=== PATIENT | female | born 1945 | race Caucasian/White ===

== ENCOUNTER 2021-03-04 16:46 | Observation (INO) ==
--- NOTE | 2021-03-04 17:42 | XRay Report ---
XR pelvis 1-2V routine CLINICAL HISTORY: Left hip pain. COMPARISON: CT of the abdomen and pelvis January 30, 2015. FINDINGS: Sacroiliac joints and symphysis pubis are intact. There is no acute fracture within the pe lvis or hips by radiography. Joint space narrowing and moderate osteophytosis of the left hip is note d. There is mild to moderate right hip osteoarthritis. Exam is mildly compromised by artifact. IMPRESSION: 1. No acute fracture identified within the pelvis or hips. 2. Moderate left and mild to moderate right hip osteoarthritis. ACT 112: Negative or not required by law. Electronically signed by: Nelson Jacob M.D. 03/04/2021 5:41 PM
--- NOTE | 2021-03-04 17:48 | XRay Report ---
XR femur LT 2V routine CLINICAL HISTORY: Left lower extremity pain. COMPARISON: CT T of the abdomen and pelvis January 30, 2015. FINDINGS: There is possible periosteal reaction/thickening of the lateral cortex of the proximal sha ft of the left femur, distal to the level of the lesser trochanter.. There is moderate left hip osteo arthritis with mild joint space narrowing and moderate osteophytosis. There is a small left knee join t effusion. Severe lateral patellofemoral compartment osteoarthrosis of the left knee is present. IMPRESSION: 1. Suspected periosteal reaction/thickening of the lateral cortex of the proximal shaft of the left f emur. This raises the possibility of an insufficiency fracture. MRI could be obtained for further rashmi luation. 2. Severe left knee osteoarthritis. Moderate left hip osteoarthritis. ACT 112: Negative or not required by law. Electronically signed by: Nelson Jacob M.D. 03/04/2021 5:47 PM
--- NOTE | 2021-03-04 17:50 | XRay Report ---
XR knee RT 1 or 2V routine CLINICAL HISTORY: Right knee pain. COMPARISON: None FINDINGS: Alignment of the right knee is in anatomic. There is moderate lateral compartment joint sp katherin narrowing. There is moderate to severe joint space narrowing with extensive osteophytosis within the patellofemoral compartment. Small right knee joint effusion is noted. Mild cortical thickening of the proximal shaft of the fibula is noted. There is soft tissue swelling. IMPRESSION: 1. No acute fracture. 2. Severe patellofemoral compartment and moderate lateral component osteoarthritis of the right knee. 3. Small right knee joint effusion. ACT 112: Negative or not required by law. Electronically signed by: Nelson Jacob M.D. 03/04/2021 5:48 PM
--- NOTE | 2021-03-04 18:00 | Emergency Department Note ---
History of Present Illness General Chief complaint: Fall Stated complaint: FALL Time Seen by Provider: 03/04/21 17:06 History of Present Illness Provider complaint: Fall Onset (ago): day(s) 1 Location: lower extremity and left Severity: severe Maximum Pain Intensity: 9 Current Pain Intensity: 9 Quality: + stabbing and + sharp Relieved By: + immobilization Exacerbated By: + movement Associated symptoms: no chest pain, no cough, no fever/chills, no headaches, no nausea/vomiting or no shortness of breath 75-year-old female presented to the emergency department for left lower extremity pain. Patient states earlier today she bent down to pick something up and then felt a crack in her left posterior thigh and then fell. Patient denies any her head. She is currently reporting pain in her left posterior thigh radiating to her left knee. She is also reporting pain in her right knee. She again denies hitting her head or headache. No chest pain or difficulty breat kalin. Patient denies being able to walk after injuring herself. Home Medications Medication Instructions Recorded Confirmed Type albuterol sulfate 90 mcg/actuation 2 puff INHALATION Q4 PRN 10/27/18 03/04/21 History aerosol inhaler (Ventolin HFA) benazepril 20 mg tablet 20 mg PO QAM 10/27/18 03/04/21 History citalopram 40 mg tablet 40 mg PO QAM 10/27/18 03/04/21 History fluticasone propionate 50 2 spray INTRANASAL DAILY PRN 10/27/18 03/04/21 History mcg/actuation nasal spray,suspension (Flonase Allergy Relief) gabapentin 300 mg capsule 300 mg PO BID 10/27/18 03/04/21 History hydrochlorothiazide 25 mg tablet 25 mg PO QAM 10/27/18 03/04/21 History insulin glargine 100 unit/mL 45 unit SUBCUT HS 10/27/18 03/04/21 History subcutaneous solution (Lantus U-100 Insulin) insulin glulisine U-100 100 1 sliding scale dose SUBCUT 10/27/18 03/04/21 History unit/mL subcutaneous solution USEASDIRECTD PRN (Apidra U-100 Insulin) levothyroxine 112 mcg tablet 112 mcg PO QAM 10/27/18 03/04/21 History lovastatin 40 mg tablet 40 mg PO HS 10/27/18 03/04/21 History multivitamin 1 tab PO Q OTHER DAY 10/27/18 03/04/21 History sitagliptin 100 mg tablet (Januvia) 100 mg PO QAM 10/27/18 03/04/21 History Allergies Allergy/AdvReac Type Severity Reaction Status Date / Time atorvastatin [From Lipitor] Allergy Mild bad dreams Verified 03/04/21 17:40 nitrofurantoin Allergy Mild Gastrointestinal Verified 03/04/21 17:40 Upset adhesive AdvReac Unknown SKIN Verified 03/04/21 17:40 IRRITATIONS Past Med/Surg History Medical History (Updated 03/04/21 @ 18:38 by oJhn Soler) Asthma allergy induced Depression Diabetes mellitus, type 2 History of anesthesia reaction slow to wake up History of colon polyps Hyperlipidemia Hypertension Hypothyroidism Osteoarthritis Sleep apnea cpap Surgical History History of bilateral cataract extraction History of bilateral tubal ligation History of colonoscopy History of dilatation and curettage History of lumbar discectomy History of tonsillectomy and adenoidectomy History of tooth extraction History of wisdom tooth extraction Family History Father Family history of reaction to anesthesia little slow to wake up Family history of diabetes mellitus Family hx colonic polyps Social History Smoking Status: Never smoker Second Hand Exposure: No; Hx Alcohol Use: No Hx Substance Use: No Preferred Language: [place] Leonean Communication Ability: Effective [place] [employer] Required: No Beliefs That Will Affect Care: None Current Living Situation: Alone Feels Safe at Home: Yes Assistive Devices: Glasses Review of Systems A total of 10 systems reviewed and were otherwise negative Physical Exam Vital Signs Vital Signs - 24 hr 03/04/21 16:59 03/04/21 17:06 Temperature 37.1 C 37.1 C Temperature Source Oral Oral Pulse Rate 77 Pulse Rate [Finger] 77 Pulse Rhythm Regular Pulse Rhythm [Finger] Regular Pulse Strength Normal Pulse Strength [Finger] Normal Respiratory Rate 16 17 Respiratory Effort / Characteristics Non-Labored Non-Labored Respiratory Depth Normal Normal Respiratory Pattern Regular Regular Blood Pressure 180/85 H Blood Pressure [Right Arm] 180/85 H Blood Pressure Mean 116 Blood Pressure Mean [Right Arm] 116 Blood Pressure Position Lying Blood Pressure Position [Right Arm] Lying Pulse Oximetry 98 98 Oxygen Delivery Method Room Air Room Air Sepsis Recent Fever Within 48 Hours No Sepsis New/Unexplained Change in Mental Status No Sepsis Action Taken by Nursing No Action Required Physical Exam GENERAL: She is oriented to person, place, and time. She appears well-developed and well-nourished. She does not appear distressed. HENT: Exam performed. -Head: Normocephalic and atraumatic. -Right Ear: External ear normal. No mastoid tenderness. -Left Ear: External ear normal. No mastoid tenderness. -Mouth/Throat: The oropharynx is clear and moist. No trismus in the jaw. No dental abscesses or uvula swelling. No oropharyngeal exudate or tonsillar abscesses. EYES: Conjunctivae and EOM are normal. Pupils are equal, round, and reactive to light. Right eye exhibits no discharge. Left eye exhibits no discharge. No scleral icterus. NECK: Normal range of motion. Neck supple. No JVD present. No spinous process tenderness present. No carotid bruit present. No rigidity. No tracheal deviation and normal range of motion present. No Brudzinski's sign and no Kernig's sign noted. CV: Normal rate, regular rhythm, normal heart sounds and intact distal pulses. There is no peripheral edema. Palpable radial pulses bue. PULM/CHEST: Effort normal and breath sounds normal. No respiratory distress. No stridor. She has no wheezes. She has no rales. -Chest Wall: She exhibits no tenderness. ABD: The abdomen is soft. Bowel sounds are normal. She has no distension. No mass is present. There is no tenderness. There is no rebound, no guarding, no Green's sign and no tenderness at McBurney's point. Rovsig negative MUSC/SKEL: Pain on palpation of the left posterior thigh and left hip. Pain on palpation of the bilateral knees. Palpable DP and PT pulses bilateral lower extremities. LYMPH: No cervical adenopathy. NEURO: She is alert and oriented to person, place, and time. No cranial nerve deficit or sensory deficit. GCS eye subscore is 4. GCS verbal subscore is 5. GCS motor subscore is 6. Cerebellar tests wnl. SKIN: Skin is warm and dry. She is not diaphoretic. PSYCH: She has a normal mood and affect. Behavior is normal. Judgment and thought content normal. Course Course 1705: The patient was evaluated in room B2. A complete history and physical exam was performed 1810: Vital signs stable. X-ray shows possible fracture of the left femur. This is where the patient has had diffuse tenderness. Patient is unable to bear weight on this extremity. Clinically it does appear to be a fracture. Patient will be admitted to the [facility] team with consult to orthopedist Dr. Adamson. Discussed with Lisa oneal who stated to admit to Dr. Verma. Patient denies wanting any narcotic medications stating she does not do well with them. Patient requested Tylenol for pain. Tylenol given. Medical Decision Making Laboratory Data Result diagrams: 03/04/21 18:20 03/04/21 18:20 Lab Results 03/04/21 Range/Units 18:20 WBC 12.20 H (4.8-10.8) K/uL RBC 4.11 L (4.2-5.4) M/uL Hgb 11.1 L (12.0-16.0) g/dL Hct 34.6 L (37-47) % MCV 84.2 (80-100) fL MCH 27.0 (25-34) pg MCHC 32.1 (32-36) g/dL RDW Std Deviation 41.4 (36.4-46.3) fL RDW Coeff of Jackie 13.7 (11.5-14.5) % Plt Count 245 (130-400) K/uL MPV 10.3 (7.4-10.4) fL Immature Gran % (Auto) 0.2 % Neut % (Auto) 65.3 % Lymph % (Auto) 24.1 % [place] % (Auto) 7.5 % Eos % (Auto) 2.5 % Baso % (Auto) 0.4 % Neut # (Auto) 7.95 H (1.4-6.5) K/uL Lymph # (Auto) 2.94 (1.2-3.4) K/uL [place] # (Auto) 0.92 H (0.11-0.59) K/uL Eos # (Auto) 0.31 (0-0.5) K/uL Baso # (Auto) 0.05 (0-0.2) K/uL Immature Gran # (Auto) 0.03 H (0.00-0.02) K/uL Imaging Data Radiologist's Impression: Femur X-Ray 03/04/21 17:07 XR femur LT 2V routine CLINICAL HISTORY: Left lower extremity pain. COMPARISON: CT T of the abdomen and pelvis January 30, 2015. FINDINGS: There is possible periosteal reaction/thickening of the lateral cortex of the proximal shaft of the left femur, distal to the level of the lesser trochanter.. There is moderate left hip osteoarthritis with mild joint space narrowing and moderate osteophytosis. There is a small left knee joint effusion. Severe lateral patellofemoral compartment osteoarthrosis of the left knee is present. IMPRESSION: 1. Suspected periosteal reaction/thickening of the lateral cortex of the proximal shaft of the left femur. This raises the possibility of an insufficiency fracture. MRI could be obtained for further evaluation. 2. Severe left knee osteoarthritis. Moderate left hip osteoarthritis. ACT 112: Negative or not required by law. Electronically signed by: Nelson Jacob M.D. 03/04/2021 5:47 PM Pelvis X-Ray 03/04/21 17:07 XR pelvis 1-2V routine CLINICAL HISTORY: Left hip pain. COMPARISON: CT of the abdomen and pelvis January 30, 2015. FINDINGS: Sacroiliac joints and symphysis pubis are intact. There is no acute fracture within the pelvis or hips by radiography. Joint space narrowing and moderate osteophytosis of the left hip is noted. There is mild to moderate right hip osteoarthritis. Exam is mildly compromised by artifact. IMPRESSION: 1. No acute fracture identified within the pelvis or hips. 2. Moderate left and mild to moderate right hip osteoarthritis. ACT 112: Negative or not required by law. Electronically signed by: Nelson Jacob M.D. 03/04/2021 5:41 PM Knee X-Ray 03/04/21 17:37 XR knee RT 1 or 2V routine CLINICAL HISTORY: Right knee pain. COMPARISON: None FINDINGS: Alignment of the right knee is in anatomic. There is moderate lateral compartment joint space narrowing. There is moderate to severe joint space narrowing with extensive osteophytosis within the patellofemoral compartment. Small right knee joint effusion is noted. Mild cortical thickening of the proximal shaft of the fibula is noted. There is soft tissue swelling. IMPRESSION: 1. No acute fracture. 2. Severe patellofemoral compartment and moderate lateral component osteoarthritis of the right knee. 3. Small right knee joint effusion. ACT 112: Negative or not required by law. Electronically signed by: Nelson Jacob M.D. 03/04/2021 5:48 PM ECG Data Indication: + other (preop) Rate (beats per minute): 68 Rhythm: + normal sinus ECG Intervals/blocks: + Normal PA and + Normal QT-c ECG ST segments: + Normal ST segments Additional Comments: QRS 78 MDM Narrative Vital signs stable. X-ray shows possible fracture of the left femur. This is where the patient has had diffuse tenderness. Patient is unable to bear weight on this extremity. Clinically it does appear to be a fracture. Patient will be admitted to the [facility] team with consult to orthopedist Dr. Adamson. Discussed with Lisa oneal who stated to admit to Dr. Verma. Patient denies wanting any narcotic medications stating she does not do well with them. Patient requested Tylenol for pain. Tylenol given. Impression & Plan Femur fracture, left Discharge Plan Visit Data Chief Complaint: Fall Stated Complaint: FALL Discharge Problem: Femur fracture, left Patient Disposition: Admitted As Inpatient Forms Stand Alone Forms: [facility] Prescriptions Prescriptions: No Action benazepril 20 mg Tablet 20 mg PO QAM RF: 0 Januvia 100 mg Tablet 100 mg PO QAM RF: 0 multivitamin Tablet 1 tab PO Q OTHER DAY RF: 0 Lantus U-100 Insulin 100 unit/mL Solution 45 unit SUBCUT HS RF: 0 citalopram 40 mg Tablet 40 mg PO QAM RF: 0 lovastatin 40 mg Tablet 40 mg PO HS RF: 0 gabapentin 300 mg Capsule 300 mg PO BID RF: 0 hydrochlorothiazide 25 mg Tablet 25 mg PO QAM RF: 0 albuterol sulfate [Ventolin HFA] 90 mcg/actuation Hfa Aerosol Inhaler 2 puff INHALATION Q4 PRN (Reason: Shortness Of Breath) RF: 0 fluticasone propionate [Flonase Allergy Relief] 50 mcg/actuation Spr ay,Suspension 2 spray INTRANASAL DAILY PRN (Reason: Allergy Symptoms) RF: 0 levothyroxine 112 mcg Tablet 112 mcg PO QAM RF: 0 Apidra U-100 Insulin 100 unit/mL Solution 1 sliding scale dose SUBCUT USEASDIRECTD PRN (Reason: Hyperglycemia) RF: 0 Referrals Referrals: Bill Harper MD [Primary Care Provider] -
[2021-03-04] MEDS ORDERED: ACETAMINOPHEN 500 MG TAB PO STA (18:04)
[2021-03-04 18:31] LABS: Basophils # (auto) 0.05 K/uL (0-0.2); Basophils % (auto) 0.4 %; Eosinophils # (auto) 0.31 K/uL (0-0.5); Eosinophils % (auto) 2.5 %; Hematocrit (blood only) 34.6 % (37-47); Hemoglobin 11.1 g/dL (12.0-16.0); Immature Granulocytes # (auto) 0.03 K/uL (0.00-0.02); Immature Granulocytes % (auto) 0.2 %; Lymphocytes # (auto) 2.94 K/uL (1.2-3.4); Lymphocytes % (auto) 24.1 %; Mean Corpuscular Hgb Conc 32.1 g/dL (32-36); Mean Corpuscular Volume 84.2 fL (80-100); Mean Platelet Volume 10.3 fL (7.4-10.4); Monocytes # (auto) 0.92 K/uL (0.11-0.59); Monocytes % (auto) 7.5 %; Neutrophils # (auto) 7.95 K/uL (1.4-6.5); Neutrophils % (auto) 65.3 %; Platelet Count 245 K/uL (130-400); RDW Coefficient of Variation 13.7 % (11.5-14.5); RDW Standard Deviation 41.4 fL (36.4-46.3); Red Blood Count 4.11 M/uL (4.2-5.4)
[2021-03-04 18:42] LABS: Partial Thromboplastin Time 25.1 Seconds (21.0-31.0)
[2021-03-04] MEDS ORDERED: MoRPHine SULFATE 4 MG/ML 1 ML CARP\\VIAL IV PRN (18:43)
[2021-03-04 18:49] LABS: Albumin Level 3.3 gm/dl (3.4-5.0); BUN Creatinine Ratio 20.5 (10-20); Calcium 9.3 mg/dl (8.5-10.1); Creatinine Clr Calc Pharmacy 36.8 ml/min; Est GFR (African American) 39.4 ml/min; Potassium 3.6 mmol/L (3.5-5.1)
[2021-03-04 18:52] LABS: Albumin Globulin Ratio 0.9 (0.9-2); Bilirubin,Total 0.4 mg/dl (0.2-1); Globulin 3.8 gm/dl (2.5-4.0); Total Protein 7.1 gm/dl (6.4-8.2)
--- NOTE | 2021-03-04 18:54 | XRay Report ---
XR chest 1V portable CLINICAL HISTORY: Femur fracture. COMPARISON STUDY: Chest radiograph January 28, 2015. FINDINGS: Lung volumes are normal. There is no pneumothorax or pleural effusion. Cardiomegaly is unch anged. Interstitial thickening is similar to prior exam. No consolidation is identified. IMPRESSION: No change in cardiomegaly with pulmonary vascular congestion. ACT 112: Negative or not required by law. Electronically signed by: Nelson Jacob M.D. 03/04/2021 6:53 PM
--- NOTE | 2021-03-04 20:34 | Communication Note ---
Date of Service: March 04, 2021 I have seen and examined the patient and have discussed the case with SUSAN Fallon. I agree with her assessment and plan as stated. The patient is a morbidly obese 75-year-old female with difficulty ambulating secondary to left hip pain. Approximately 2 weeks ago she experienced a mild trauma that became worse with additional trauma today. X-rays raise the suspicion of an insufficiency fracture which will be further explored with MRI. She has bilateral hip osteoarthritis. It is unknown if she has osteoporosis per her report. She lives alone and is otherwise very independent and functional. She denies any pain at this time as long as she stays put. Blood pressure elevated to 167/80 which is likely situational. She is able to climb a flight of stairs at baseline without any chest pain or shortness of breath. She has no cardiac history and has an overall good functional status. She denies any history of reactions to anesthesia in the past. She has no other reported symptoms at this time. Physical exam reveals hemodynamic stability and she is oxygenating 99% on room air. She is not working to breathe and is in no acute distress. Her cognitive function is normal and she has no gross neurologic deficit although exam is somewhat limited secondary to pain. Cardiac exam reveals S1/S2 with no murmurs, gallops, rubs. Lungs are clear to auscultation. She is obese limiting the ability to determine volume, however, she examines is euvolemic. She does have some pink changes to her anterior lower extremities bilaterally, but reports she does not know if this is normal or not. Toenail onychomycosis noted. No peripheral edema noted. Left hip MRI to further evaluate for fracture and consult Ortho for recommendations. No weightbearing until evaluated by Ortho. EKG is nonischemic. She has a good functional status and should be fine to undergo surgery if needed. DO [place]ron
[2021-03-04] MEDS ORDERED: MoRPHine SULFATE 4 MG/ML 1 ML CARP\\VIAL ONE (20:45)
--- NOTE | 2021-03-04 22:21 | History & Physical Report ---
Date of Service March 04, 2021 Assessment & Plan (1) Femur fracture, left: Plan: -Admit to [facility] -Patient presenting from home with reports of left leg pain and inability to bear weight after attempting to pick something up off of the floor -Left femur x-ray questioning fracture, will obtain MRI for further evaluation -Orthopedics consult -EKG without acute ST changes, CXR noting pulmonary vascular congestion, however patient does not examine to be volume overloaded. Denies any cardiopulmonary complaints. No further cardiac testing needed to proceed to surgery. (2) Diabetes: Plan: -HgbA1c 6.7 10/2020 -Lantus and NovoLog per protocol while hospitalized (3) CKD (chronic kidney disease) stage 3, GFR 30-59 ml/min: Plan: -Baseline creatinine runs in the mid - high 1's, creatinine noted to be 1.5 today -Monitor renal functions (4) Sleep apnea: Plan: -CPAP as per home settings (5) HTN (hypertension): Plan: -BP currently elevated, likely secondary to pain -MO inhibitor discontinued over the summer due to hyperkalemia -Holding HCTZ preoperatively (6) Hypothyroidism: Plan: -Continue levothyroxine (7) DVT prophylaxis: Plan: -SCDs for now Admission and Anticipated Discharge Date Admission Date: March 04, 2021 History of Present Illness Chief Complaint: Left leg pain Primary Care Provider: Bill Harper MD 75-year-old female PMH DM type II, dyslipidemia, hypothyroidism, VIRGIL on CPAP, HTN, CKD stage III, and other problems listed below who presents to the ED for evaluation of left leg pain. Patient reports that about 2 weeks ago, while bending over to pick something off of the floor and the she felt something pull in the back of her left leg. She reports having to limp on ler left leg since then. Today again while trying to pick something off of the floor, she felt a "pull and a pop" in her left leg. She was able to grab onto a chair just and sit down before falling. Patient reports she attempted to ambulate however was unable to bear weight on her left leg. Patient called EMS and was brought to the ED for further evaluation. Patient reports she otherwise has been feeling well recently. Denies recent illnesses, fevers, chills. No episodes of chest pain or shortness of breath. Denies lightheadedness, dizziness, diaphoresis, or syncopal events. No abdominal pain, nausea, vomiting, diarrhea. Denies urinary symptoms. In the ED, left femur x-ray is questioning possible. Patient is hemodynamically stable and labs are unremarkable/at patient's baseline. Allergies Allergy/AdvReac Type Severity Reaction Status Date / Time atorvastatin [From Lipitor] Allergy Mild bad dreams Verified 03/04/21 17:40 nitrofurantoin Allergy Mild Gastrointestinal Verified 03/04/21 17:40 Upset adhesive AdvReac Unknown SKIN Verified 03/04/21 17:40 IRRITATIONS Home Medications Medication Instructions Recorded Confirmed Type albuterol sulfate 90 mcg/actuation 2 puff INHALATION Q4 PRN 10/27/18 03/04/21 History aerosol inhaler (Ventolin HFA) citalopram 40 mg tablet 40 mg PO QAM 10/27/18 03/04/21 History fluticasone propionate 50 2 spray INTRANASAL DAILY PRN 10/27/18 03/04/21 History mcg/actuation nasal spray,suspension (Flonase Allergy Relief) gabapentin 300 mg capsule 300 mg PO BID 10/27/18 03/04/21 History hydrochlorothiazide 25 mg tablet 25 mg PO QAM 10/27/18 03/04/21 History insulin glargine 100 unit/mL 45 unit SUBCUT HS 10/27/18 03/04/21 History subcutaneous solution (Lantus U-100 Insulin) insulin glulisine U-100 100 1 sliding scale dose SUBCUT 10/27/18 03/04/21 History unit/mL subcutaneous solution USEASDIRECTD PRN (Apidra U-100 Insulin) lovastatin 40 mg tablet 40 mg PO HS 10/27/18 03/04/21 History multivitamin 1 tab PO Q OTHER DAY 10/27/18 03/04/21 History sitagliptin 100 mg tablet (Januvia) 100 mg PO QAM 10/27/18 03/04/21 History levothyroxine 100 mcg tablet 100 mcg PO DAILY 03/04/21 03/04/21 History Past Med/Surg History Medical History (Updated 03/05/21 @ 09:07 by SUSAN Fallon) Asthma allergy induced Depression Diabetes mellitus, type 2 History of anesthesia reaction slow to wake up History of colon polyps Hyperlipidemia Hypertension Hypothyroidism Osteoarthritis Sleep apnea cpap Surgical History History of bilateral cataract extraction History of bilateral tubal ligation History of colonoscopy History of dilatation and curettage History of lumbar discectomy History of tonsillectomy and adenoidectomy History of tooth extraction History of wisdom tooth extraction Family History Father Family history of reaction to anesthesia little slow to wake up Family history of diabetes mellitus Family hx colonic polyps Social History Smoking Status: Never smoker Second Hand Exposure: No; Hx Alcohol Use: No Hx Substance Use: No Preferred Language: Honduran Communication Ability: Effective Surplus Property Disposal Agent Required: No Beliefs That Will Affect Care: None marital status: Single Current Living Situation: Alone Other Information That Helps Us Care for You: No Feels Safe at Home: Yes Safety Concerns: Feels Safe At This Time Assistive Devices: Walker Review of Systems Review of Systems: ROS per HPI, all other systems reviewed and negative Physical Exam Constitutional: WD/WN, vitals as above + obese Eyes: PERRL, conjunctivae normal, anicteric sclerae ENMT: external ear and nose normal, oropharynx normal Respiratory: normal respiratory effort, lungs clear to auscultation Cardiovascular: Rate/Rhythm: regular rate and regular rhythm Vessels: jesse l peripheral pulses Extremities: no edema Gastrointestinal (Abdomen): normal bowel sounds, soft, nontender, no hepatosplenomegaly Musculoskeletal: no cyanosis or clubbing, extremities motor strength 5/5 left posterior leg pain with minimal movement Skin: no rashes, warm and dry Neurologic: PERRL, EOMI, accommodation nl, no face palsy, no dysarthria Psychiatric: A+Ox3, euthymic affect Results & Data Results & Data ([facility]) Vital Signs (Past 12 Hours) Vital Signs Temp Pulse Pulse Resp BP BP Pulse Ox 03/04/21 21:48 66 17 171/72 H 03/04/21 20:52 69 17 171/71 H 97 03/04/21 19:32 36.9 C 70 17 167/80 H 99 03/04/21 17:06 37.1 C 77 17 180/85 H 98 03/04/21 16:59 37.1 C 77 16 180/85 H 98 Laboratory Results Short CBC 03/04/21 Range/Units 18:20 WBC 12.20 H (4.8-10.8) K/uL Hgb 11.1 L (12.0-16.0) g/dL Hct 34.6 L (37-47) % Plt Count 245 (130-400) K/uL BMP 03/04/21 18:20 Sodium 140 Potassium 3.6 Chloride 104 Carbon Dioxide 32 BUN 31 H Creatinine 1.50 H Glucose 190 H Calcium 9.3 Liver Function 03/04/21 Range/Units 18:20 Total Bilirubin 0.4 (0.2-1) mg/dl AST 14 L (15-37) U/L ALT 20 (12-78) U/L Alkaline Phosphatase 44 L (45-117) U/L Albumin 3.3 L (3.4-5.0) gm/dl Diagnostic Findings Femur X-Ray 03/04/21 17:07 XR femur LT 2V routine CLINICAL HISTORY: Left lower extremity pain. COMPARISON: CT T of the abdomen and pelvis January 30, 2015. FINDINGS: There is possible periosteal reaction/thickening of the lateral cortex of the proximal shaft of the left femur, distal to the level of the lesser trochanter.. There is moderate left hip osteoarthritis with mild joint space narrowing and moderate osteophytosis. There is a small left knee joint effusion. Severe lateral patellofemoral compartment osteoarthrosis of the left knee is present. IMPRESSION: 1. Suspected periosteal reaction/thickening of the lateral cortex of the proximal shaft of the left femur. This raises the possibility of an insufficiency fracture. MRI could be obtained for further evaluation. 2. Severe left knee osteoarthritis. Moderate left hip osteoarthritis. ACT 112: Negative or not required by law. Electronically signed by: Nelson Jacob M.D. 03/04/2021 5:47 PM Pelvis X-Ray 03/04/21 17:07 XR pelvis 1-2V routine CLINICAL HISTORY: Left hip pain. COMPARISON: CT of the abdomen and pelvis January 30, 2015. FINDINGS: Sacroiliac joints and symphysis pubis are intact. There is no acute fracture within the pelvis or hips by radiography. Joint space narrowing and moderate osteophytosis of the left hip is noted. There is mild to moderate right hip osteoarthritis. Exam is mildly compromised by artifact. IMPRESSION: 1. No acute fracture identified within the pelvis or hips. 2. Moderate left and mild to moderate right hip osteoarthritis. ACT 112: Negative or not required by law. Electronically signed by: Nelson Jacob M.D. 03/04/2021 5:41 PM Knee X-Ray 03/04/21 17:37 XR knee RT 1 or 2V routine CLINICAL HISTORY: Right knee pain. COMPARISON: None FINDINGS: Alignment of the right knee is in anatomic. There is moderate lateral compartment joint space narrowing. There is moderate to severe joint space narrowing with extensive osteophytosis within the patellofemoral compartment. Small right knee joint effusion is noted. Mild cortical thickening of the proximal shaft of the fibula is noted. There is soft tissue swelling. IMPRESSION: 1. No acute fracture. 2. Severe patellofemoral compartment and moderate lateral component osteoarthritis of the right knee. 3. Small right knee joint effusion. ACT 112: Negative or not required by law. Electronically signed by: Nelson Jacob M.D. 03/04/2021 5:48 PM Chest X-Ray 03/04/21 17:53 XR chest 1V portable CLINICAL HISTORY: Femur fracture. COMPARISON STUDY: Chest radiograph January 28, 2015. FINDINGS: Lung volumes are normal. There is no pneumothorax or pleural effusion. Cardiomegaly is unchanged. Interstitial thickening is similar to prior exam. No consolidation is identified. IMPRESSION: No change in cardiomegaly with pulmonary vascular congestion. ACT 112: Negative or not required by law. Electronically signed by: Nelson Jacob M.D. 03/04/2021 6:53 PM Code Status & VTE Plan VTE Prophylaxis Plan VTE Prophylaxis will be ordered: Yes Supervising Physician Co-Signing Physician Notes I have seen and examined the patient and have discussed the case with SUSAN Fallon. I agree with her assessment and plan as stated. The patient is a morbidly obese 75-year-old female with difficulty ambulating secondary to left hip pain. Approximately 2 weeks ago she experienced a mild trauma that became worse with additional trauma today. X-rays raise the suspicion of an insufficiency fracture which will be further explored with MRI. She has bilateral hip osteoarthritis. It is unknown if she has osteoporosis per her report. She lives alone and is otherwise very independent and functional. She denies any pain at this time as long as she stays put. Blood pressure elevated to 167/80 which is likely situational. She is able to climb a flight of stairs at baseline without any chest pain or shortness of breath. She has no cardiac history and has an overall good functional status. She denies any history of reactions to anesthesia in the past. She has no other reported symptoms at this time. Physical exam reveals hemodynamic stability and she is oxygenating 99% on room air. She is not working to breathe and is in no acute distress. Her cognitive function is normal and she has no gross neurologic deficit although exam is somewhat limited secondary to pain. Cardiac exam reveals S1/S2 with no murmurs, gallops, rubs. Lungs are clear to auscultation. She is obese limiting the ability to determine volume, however, she examines is euvolemic. She does have some pink changes to her anterior lower extremities bilaterally, but reports she does not know if this is normal or not. Toenail onychomycosis noted. No peripheral edema noted. Left hip MRI to further evaluate for fracture and consult Ortho for recommendations. No weightbearing until evaluated by Ortho. EKG is nonischemic. She has a good functional status and should be fine to undergo surgery if needed. DO Bayron (1) Femur fracture, left Encounter type: initial encounter Femur location: unspecified portion of femur Fracture morphology: unspecified fracture morphology Fracture type: closed Qualified Code(s): S72.92XA - Unspecified fracture of left femur, initial encounter for closed fracture
[2021-03-04] MEDS ORDERED: CARBOHYDRATES FOR HYPOGLYCEMIA PO PRN (22:23)
[2021-03-04] MEDS ORDERED: MAGNESIUM HYDROXIDE SUSP 30 ML UDC PO PRN (22:23)
[2021-03-04] MEDS ORDERED: GLUCOSE 10 TABS/TUBE PO PRN (22:23)
[2021-03-04] MEDS ORDERED: DEXTROSE 50% 50 ML SYRINGE IV PRN (22:23)
[2021-03-04] MEDS ORDERED: NALOXONE HCL 0.4 MG/1 ML VIAL/CARP IV PRN (22:23)
[2021-03-04] MEDS ORDERED: ONDANSETRON INJ 2 MG/ML 2 ML VIAL IV PRN (22:23)
[2021-03-04] MEDS ORDERED: bisacodyL 10 MG SUPP PR PRN (22:23)
[2021-03-04] MEDS ORDERED: GLUCOSE 40% GEL 15 GM TUBE PO PRN (22:23)
[2021-03-04] MEDS ORDERED: GLUCAGON FOR INJ 1 MG VIAL SQ PRN (22:23)
[2021-03-04] MEDS: LOVASTATIN 20 MG TAB PO SCH (23:51)
[2021-03-04] MEDS: GABAPENTIN 300 MG CAP PO SCH (23:52)
[2021-03-04] MEDS: INSULIN ASPART 100 UNITS/ML 3 ML PEN SC SCH (23:52)
[2021-03-04] MEDS: DOCUSATE SODIUM/SENNA 50/8.6MG TAB PO SCH (23:52)
[2021-03-04] MEDS: INSULIN GLARGINE SOLOSTAR 100 UNITS/ML 3 ML PEN SC SCH (23:55)
[2021-03-05] MEDS: ACETAMINOPHEN 325 MG TAB PO PRN ×3 (00:01→16:03)
[2021-03-05 00:45] LABS: Appearance Urine Clear (Clear); Bacteria Urine Automated Negative (Negative); Bilirubin Urine Negative (Negative); Blood Urine Trace (Negative); Color Urine Yellow; Epithelial Cell Urine Auto >30 /lpf (0-5); Glucose Urine UA Negative (Negative); Ketones Urine Negative (Negative); Leukocyte Esterase Urine 1+ (Negative); Nitrite Urine Negative (Negative); Protein Urine Negative (Negative); Specific Gravity Urine 1.016 (1.000-1.030); Urobilinogen Urine Negative (Negative)
[2021-03-05] MEDS ORDERED: ceFAZolin 2000MG 2,000 MG/15 ML SYR IV SCH (06:00)
[2021-03-05] MEDS: LEVOTHYROXINE SODIUM 100 MCG TABLET PO SCH (06:21)
[2021-03-05 07:25] LABS: Hematocrit (blood only) 33.6 % (37-47); Hemoglobin 10.5 g/dL (12.0-16.0); Mean Corpuscular Hemoglobin 26.6 pg (25-34); Mean Corpuscular Hgb Conc 31.3 g/dL (32-36); Mean Corpuscular Volume 85.3 fL (80-100); Mean Platelet Volume 10.3 fL (7.4-10.4); Platelet Count 232 K/uL (130-400); RDW Coefficient of Variation 13.7 % (11.5-14.5); RDW Standard Deviation 42.4 fL (36.4-46.3); Red Blood Count 3.94 M/uL (4.2-5.4); White Blood Count 10.62 K/uL (4.8-10.8)
[2021-03-05] MEDS ORDERED: Nursing to Pharmacy Communication SCH ×2 (07:45→08:45)
[2021-03-05 07:54] LABS: BUN Creatinine Ratio 19.8 (10-20); Calcium 8.6 mg/dl (8.5-10.1); Creatinine Clr Calc Pharmacy 41.8 ml/min; Est GFR (African American) 45.9 ml/min; Est GFR (Non-African American) 39.6 ml/min; Potassium 3.3 mmol/L (3.5-5.1)
--- NOTE | 2021-03-05 08:07 | Magnetic Resonance Report ---
MRI OF THE LEFT FEMUR WITHOUT IV CONTRAST CLINICAL HISTORY: Left leg pain. COMPARISON STUDY: Radiographs of the left femur dated 03/04/2021. TECHNIQUE: MRI of the left femur is performed utilizing various T1 and T2-weighted sequences in the a xial, sagittal, and coronal planes. IV contrast was not administered for this examination. The examin ation is significantly degraded by motion artifact. FINDINGS: There is no marrow edema to suggest femoral fracture. The left hip and knee joints are connie sly maintained but not well evaluated. There is evidence of trochanteric bursitis of both femurs seen on the coronal sequences. The periostitis suggested by x-ray is not well visualized. Generalized atr ophy is noted in the regional musculature. Nonspecific deep soft tissue edema is noted in the mid to distal thigh along the lateral aspect of the quadriceps musculature. A Wilks catheter is noted in the bladder. IMPRESSION: 1. There is no MRI evidence of left femoral fracture. 2. Trochanteric bursitis. 3. Nonspecific deep soft tissue edema is present in the mid to distal thigh as above. Dictated: 03/05/2021 7:33 AM Transcribed: 03/05/2021 7:43 AM Heena [id number] [email or web address] Electronically signed by: Brayan Sosa M.D. 03/05/2021 8:05 AM
[2021-03-05] MEDS ORDERED: POTASSIUM CHLORIDE CRTAB 20 MEQ TABCR PO ONE (08:36)
[2021-03-05] MEDS: GABAPENTIN 300 MG CAP PO SCH ×2 (08:40→21:07)
[2021-03-05] MEDS: CITALOPRAM 40 MG TAB PO SCH (08:40)
--- NOTE | 2021-03-05 09:11 | Hospitalist Progress Note ---
Date of Service March 05, 2021 Assessment & Plan (1) Ambulatory dysfunction: (2) Strain of left quadriceps: Plan: -Patient presented from home with reports of left leg pain and inability to bear weight after attempting to pick something up off of the floor -Left femur x-ray questioned fracture; follow up MRI negative for fracture - shows non specific deep soft tissue edema is present in the mid to distal thigh. -Pain/ambulatory dysfunction may be due to quadriceps strain -Orthopedics consult, input appreciated -PT/OT -remove haro once ambulating (3) Abnormal urinalysis: Plan: -asymptomatic bacteruria, UA may also be contaminent -follow culture (4) Hypokalemia: Plan: -K+3.3, replacement ordered -check Mg+ -on HCTZ so may need daily K+ replacement (5) HTN (hypertension): Plan: -BP elevated on presentation, likely due to pain. BP improved this AM. -MO inhibitor discontinued over the summer due to hyperkalemia -HCTZ held due to possible surgery today, will resume. (6) Diabetes: Plan: -HgbA1c 6.7 10/2020 -Lantus and NovoLog per protocol while hospitalized (7) CKD (chronic kidney disease) stage 3, GFR 30-59 ml/min: Plan: -Baseline creatinine runs in the mid - high 1's, creatinine noted to be 1.3 today -Monitor renal functions (8) Sleep apnea: Plan: -CPAP as per home settings (9) Hypothyroidism: Plan: -Continue levothyroxine (10) DVT prophylaxis: Plan: -SQ Heparin Admission and Anticipated Discharge Date Admission Date: March 04, 2021 Supervising Physician Co-Signing Physician Notes I have seen and examined the patient and have discussed the case with the provider above. I agree with the assessment and plan as stated. 75 yo F with morbid obesity presented after a soft trauma hearing a pop followed by pain in her left lateral leg including her left hip. Initially thought to be a fracture, however, MRI ruled this out. Awaiting PT/OT and orthopedics thoughts. My physical exam reflects that above. Cont supportive care efforts. Bayron, Subjective Patient seen and examined. Resting in bed, reports left leg pain is improved. ROM has improved as well. Denies chest pain and shortness of breath. No abdominal pain or nausea. Haro in place. Physical Exam Constitutional: WD/WN, vitals as above + obese; no acute distress Respiratory: normal respiratory effort, lungs clear to auscultation Cardiovascular: Rate/Rhythm: regular rate and regular rhythm Vessels: normal peripheral pulses Extremities: + edema (+1-2 edema BLE) Gastrointestinal (Abdomen): Percussion/Palpation: abdomen soft; abdomen nontender Musculoskeletal: able to lift LLE with minimal pain, ROM improved from yesterday Skin: no rashes, warm and dry mild pinkness noted to BLE - likely chronic changes Psychiatric: Orientation: alert and oriented x 3 Genitourinary: haro in place draining clear yellow urine Results & Data Results & Data ([facility]) Vital Signs (Past 12 Hours) Vital Signs Temp Pulse Pulse Resp BP BP Pulse Ox 03/05/21 07:47 36.9 C 69 16 127/77 96 03/04/21 22:23 03/04/21 22:04 36.9 C 70 166/74 H 95 03/04/21 21:48 66 17 171/72 H Pulse Ox 03/05/21 07:47 03/04/21 22:23 95 03/04/21 22:04 03/04/21 21:48 Laboratory Results Short CBC 03/04/21 03/05/21 Range/Units 18:20 06:41 WBC 12.20 H 10.62 (4.8-10.8) K/uL Hgb 11.1 L 10.5 L (12.0-16.0) g/dL Hct 34.6 L 33.6 L (37-47) % Plt Count 245 232 (130-400) K/uL BMP 03/04/21 03/05/21 18:20 06:41 Sodium 140 143 Potassium 3.6 3.3 L Chloride 104 108 H Carbon Dioxide 32 29 BUN 31 H 26 H Creatinine 1.50 H 1.32 H Glucose 190 H 82 Calcium 9.3 8.6 Liver Function 03/04/21 Range/Units 18:20 Total Bilirubin 0.4 (0.2-1) mg/dl AST 14 L (15-37) U/L ALT 20 (12-78) U/L Alkaline Phosphatase 44 L (45-117) U/L Albumin 3.3 L (3.4-5.0) gm/dl Urine 03/05/21 Range/Units 00:16 Urine Color Yellow Urine Appearance Clear (Clear) Urine pH 6.0 (4.5-7.5) Ur Specific [place] 1.016 (1.000-1.030) Urine Protein Negative (Negative) Urine Glucose (UA) Negative (Negative) Diagnostic Findings Femur MRI 03/05/21 18:48 MRI OF THE LEFT FEMUR WITHOUT IV CONTRAST CLINICAL HISTORY: Left leg pain. COMPARISON STUDY: Radiographs of the left femur dated 03/04/2021. TECHNIQUE: MRI of the left femur is performed utilizing various T1 and T2- weighted sequences in the axial, sagittal, and coronal planes. IV contrast was not administered for this examination. The examination is significantly degraded by motion artifact. FINDINGS: There is no marrow edema to suggest femoral fracture. The left hip and knee joints are grossly maintained but not well evaluated. There is evidence of trochanteric bursitis of both femurs seen on the coronal sequences. The periostitis suggested by x-ray is not well visualized. Generalized atrophy is noted in the regional musculature. Nonspecific deep soft tissue edema is noted in the mid to distal thigh along the lateral aspect of the quadriceps musculature. A Haro catheter is noted in the bladder. IMPRESSION: 1. There is no MRI evidence of left femoral fracture. 2. Trochanteric bursitis. 3. Nonspecific deep soft tissue edema is present in the mid to distal thigh as above. Dictated: 03/05/2021 7:33 AM Transcribed: 03/05/2021 7:43 AM Heena [id number] [email or web address] Electronically signed by: Brayan Sosa M.D. 03/05/2021 8:05 AM
[2021-03-05] MEDS: hydroCHLOROthiazide 25 MG TAB PO SCH (09:59)
[2021-03-05] MEDS ORDERED: INSULIN ASPART 100 UNITS/ML 3 ML PEN SC SCH (12:00)
[2021-03-05] MEDS: INSULIN ASPART 100 UNITS/ML 3 ML PEN SC SCH ×3 (12:57→21:12)
[2021-03-05] MEDS: HEPARIN SOD 5,000 UNIT/0.5 ML VIAL SQ SCH ×2 (16:50→21:08)
[2021-03-05] MEDS: LOVASTATIN 20 MG TAB PO SCH (21:07)
[2021-03-05] MEDS: DOCUSATE SODIUM/SENNA 50/8.6MG TAB PO SCH (21:07)
[2021-03-05] MEDS: INSULIN GLARGINE SOLOSTAR 100 UNITS/ML 3 ML PEN SC SCH (21:12)
--- NOTE | 2021-03-05 21:52 | Consultation Report ---
DATE OF CONSULT: 03/05/2021. CHIEF COMPLAINT: Inability to ambulate. HISTORY OF PRESENT ILLNESS: The patient is a 75-year-old female who was admitted to the hospital yesterday after she tried to pick something off the floor and felt a pull and a pop in her left leg. She has difficulty bearing weight, so she was brought by ambulance to the emergency room. She was admitted to Internal Medicine. X-rays and MRI were done. Orthopedics was consulted for further evaluation and management. The patient reports that she has not previously had any cortisone injections into her left lower extremity. She denies any numbness or tingling down her leg. She says the pain is a little bit better today. She was able to get up to a chair. However, she has not done much for walking today either. Medication she is receiving are helping. PAST MEDICAL HISTORY: Morbid obesity, type 2 diabetes, chronic kidney disease stage III, obstructive sleep apnea, hypothyroidism, hypertension, asthma. PAST SURGICAL HISTORY, SOCIAL HISTORY, FAMILY HISTORY, MEDICATIONS AND ALLERGIES: All reviewed on the chart. PHYSICAL EXAMINATION: She is a pleasant female, resting comfortably in her hospital bed, in no acute distress. Left lower extremity examination reveals the patient to have no skin lesions. She has intact neurovascular exam, wiggling her toes, moving her ankle up and down, able to do a straight leg raise. Full ankle range of motion. Knee range of motion, however, is limited from 5 up to 35 degrees actively. Passively is essentially the same. She has tenderness to palpation along the medial and lateral joint lines, as well as tenderness over the distal quadriceps laterally. No pain with log roll and gentle passive hip ROM. RESULTS REVIEWED: X-rays of her left femur and pelvis and knee done yesterday are reviewed as well as an MRI. On the knee films, she has fairly advanced degenerative change in all three compartments worst in the lateral compartment. Some cortical thickening is noted in the proximal femur. No fracture or dislocation on MRI, however. Some edema within the distal quad laterally consistent with a grade 2 strain. IMPRESSION: Left quadriceps strain in the setting of left knee arthritis in a morbidly obese patient with diabetes. PLAN: Discussed the diagnoses with the patient. Nonsurgical treatment is recommended. Recommend nonsteroidal anti-inflammatories per internal medicine's choice which could be continued as an outpatient. Cortisone injection is an option for her knee arthritis; however, if she is responding to oral medications, I think that this would be sufficient as the knee arthritis is pre- existing and her acute pain seems more due to the quadriceps strain, which a cortisone injection would not help. She can fully weightbear with a walker for safety. PT/OT to eval and treat. She can follow up in our clinic on an outpatient basis. Any questions, feel free to contact Orthopedics. Job ID: [id number] [facility]ITALCasimiro
[2021-03-06] MEDS: LEVOTHYROXINE SODIUM 100 MCG TABLET PO SCH (05:38)
[2021-03-06] MEDS: HEPARIN SOD 5,000 UNIT/0.5 ML VIAL SQ SCH ×3 (05:38→21:49)
[2021-03-06] MEDS: INSULIN ASPART 100 UNITS/ML 3 ML PEN SC SCH ×5 (06:47→21:51)
[2021-03-06 07:20] LABS: BUN Creatinine Ratio 18.9 (10-20); Calcium 9.4 mg/dl (8.5-10.1); Creatinine Clr Calc Pharmacy 40.2 ml/min; Est GFR (African American) 43.9 ml/min; Est GFR (Non-African American) 37.9 ml/min; Potassium 3.7 mmol/L (3.5-5.1)
[2021-03-06] MEDS: GABAPENTIN 300 MG CAP PO SCH ×2 (09:14→19:57)
[2021-03-06] MEDS: CITALOPRAM 40 MG TAB PO SCH (09:14)
[2021-03-06] MEDS: hydroCHLOROthiazide 25 MG TAB PO SCH (09:14)
--- NOTE | 2021-03-06 09:20 | Hospitalist Progress Note ---
Date of Service March 06, 2021 Assessment & Plan (1) Ambulatory dysfunction: (2) Strain of left quadriceps: Plan: -Patient presented from home with reports of left leg pain and inability to bear weight after attempting to pick something up off of the floor -Left femur x-ray questioned fracture; follow up MRI negative for fracture - shows non specific deep soft tissue edema is present in the mid to distal thigh. -Pain/ambulatory dysfunction likely due to quadriceps strain -Orthopedics consult, input appreciated -awaiting PT/OT recs, patient agreeable to rehab -PRN Tylenol, would avoid NSAIDs due to CKD (3) Abnormal urinalysis: Plan: -asymptomatic bacteruria, UA may also be contaminant -follow culture (4) Hypokalemia: Plan: -replaced, resolved (5) HTN (hypertension): Plan: -BP elevated on presentation, likely due to pain. BP now improved. -MO inhibitor discontinued over the summer due to hyperkalemia -continue home HCTZ (6) Diabetes: Plan: -HgbA1c 6.7 10/2020 -Lantus and NovoLog per protocol while hospitalized (7) CKD (chronic kidney disease) stage 3, GFR 30-59 ml/min: Plan: -Baseline creatinine runs in the mid - high 1's, creatinine noted to be 1.3 today -Monitor renal functions (8) Sleep apnea: Plan: -CPAP as per home settings (9) Hypothyroidism: Plan: -Continue levothyroxine (10) DVT prophylaxis: Plan: -SQ Heparin Dispo - Awaiting PT/OT evals. Patient agreeable to rehab (?[facility]). Stable for discharge. Admission and Anticipated Discharge Date Admission Date: March 04, 2021 Supervising Physician Co-Signing Physician Notes I have seen and examined the patient and have discussed the case with the provider above. I agree with the assessment and plan as stated. 75 yo F with morbid obesity presented after a soft trauma hearing a pop followed by pain in her left lateral leg including her left hip. Pain is moreso in her left posterolateral knee today and she is able to ambulate somewhat. Exam findings as above suggestive for soft tissue injury. RICE therapy, however, opting for scheduled Tylenol to help pain and inflammation at this time in lieu of NSAIDs as patient has CKD. ICE to affected area. Cont other supportive care measures as needed. Awaiting authorization to rehab hospital. DO [place]ron Subjective Patient seen and examined. Sitting up in bed having breakfast. Pain continues to improve, was able to get out of bed to chair and BSC yesterday. Offers no complaints, agreeable to rehab if recommended by PT Physical Exam Constitutional: WD/WN, vitals as above no acute distress Respiratory: normal respiratory effort, lungs clear to auscultation Cardiovascular: Rate/Rhythm: regular rate and regular rhythm Vessels: normal peripheral pulses Extremities: no edema Gastrointestinal (Abdomen): Percussion/Palpation: abdomen soft; abdomen nontender Musculoskeletal: no cyanosis or clubbing, extremities motor strength 5/5 Skin: no rashes, warm and dry Neurologic: no focal motor deficits Psychiatric: A+Ox3, euthymic affect Results & Data Results & Data ([facility]) Vital Signs (Past 12 Hours) Vital Signs Temp Pulse Pulse Resp BP BP Pulse Ox 03/06/21 07:38 37.3 C 67 16 141/78 H 95 03/05/21 22:40 37 C 81 20 148/78 H 95 03/05/21 22:30 64 19 96 Laboratory Results [facility] 03/06/21 06:22 Sodium 141 Potassium 3.7 Chloride 108 H Carbon Dioxide 25 BUN 26 H Creatinine 1.37 H Glucose 123 H Calcium 9.4
--- NOTE | 2021-03-06 11:55 | Electrocardiogram Report ---
Test Reason : Blood Pressure : / mmHG Vent. Rate : 068 BPM Atrial Rate : 068 BPM P-R Int : 162 ms QRS Dur : 078 ms QT Int : 462 ms P-R-T Axes : 041 002 019 degrees QTc Int : 491 ms Normal sinus rhythm Nonspecific ST abnormality Prolonged QT Abnormal ECG No previous ECGs available Confirmed by Matteo Kumar ([id number]) on 03/06/2021 11:55:00 AM Referred By: REFERRED SELF Confirmed By:Matteo Kumar
[2021-03-06] MEDS: ACETAMINOPHEN 325 MG TAB PO PRN (19:57)
[2021-03-06] MEDS: LOVASTATIN 20 MG TAB PO SCH (19:57)
[2021-03-06] MEDS: DOCUSATE SODIUM/SENNA 50/8.6MG TAB PO SCH (19:58)
[2021-03-06] MEDS: INSULIN GLARGINE SOLOSTAR 100 UNITS/ML 3 ML PEN SC SCH (21:50)
[2021-03-06] MEDS: ACETAMINOPHEN 500 MG TAB PO SCH (23:28)
[2021-03-07] MEDS: LEVOTHYROXINE SODIUM 100 MCG TABLET PO SCH (05:14)
[2021-03-07] MEDS: HEPARIN SOD 5,000 UNIT/0.5 ML VIAL SQ SCH ×3 (05:14→21:10)
[2021-03-07] MEDS: CITALOPRAM 40 MG TAB PO SCH (08:56)
[2021-03-07] MEDS: hydroCHLOROthiazide 25 MG TAB PO SCH (08:56)
[2021-03-07] MEDS: GABAPENTIN 300 MG CAP PO SCH ×2 (08:56→21:07)
[2021-03-07] MEDS: ACETAMINOPHEN 500 MG TAB PO SCH ×2 (08:56→21:08)
[2021-03-07] MEDS: INSULIN ASPART 100 UNITS/ML 3 ML PEN SC SCH ×4 (08:57→21:06)
--- NOTE | 2021-03-07 12:51 | Hospitalist Progress Note ---
Date of Service March 07, 2021 Assessment & Plan (1) Ambulatory dysfunction: (2) Strain of left quadriceps: Plan: -Patient presented from home with reports of left leg pain and inability to bear weight after attempting to pick something up off of the floor -Left femur x-ray questioned fracture; follow up MRI negative for fracture - shows non specific deep soft tissue edema is present in the mid to distal thigh. -Pain/ambulatory dysfunction likely due to quadriceps strain -Orthopedics consult, input appreciated -PT/OT recommending rehab, awaiting acceptance (? [facility]) -Pain control with scheduled Tylenol, would avoid NSAIDs due to CKD (3) Abnormal urinalysis: Plan: -asymptomatic bacteruria, UA may also be contaminant -No growth on culture (4) Hypokalemia: Plan: -replaced, resolved (5) HTN (hypertension): Plan: -BP elevated on presentation, likely due to pain. BP now improved. -MO inhibitor discontinued over the summer due to hyperkalemia -continue home HCTZ (6) Diabetes: Plan: -HgbA1c 6.7 10/2020 -Lantus and NovoLog per protocol while hospitalized (7) CKD (chronic kidney disease) stage 3, GFR 30-59 ml/min: Plan: -Renal function stable (8) Sleep apnea: Plan: -CPAP as per home settings (9) Hypothyroidism: Plan: -Continue levothyroxine (10) DVT prophylaxis: Plan: -SQ Heparin Dispo - Stable for discharge when bed available rehab. Admission and Anticipated Discharge Date Admission Date: March 04, 2021 Supervising Physician Co-Signing Physician Notes I have seen and examined the patient and have discussed the case with the pro vider above. I agree with the assessment and plan as stated. 75 yo F with morbid obesity presented after a soft trauma hearing a pop followed by pain in her left lateral leg including her left hip. Pain is far better than what she came in with and she is able to ambulate somewhat. Exam findings as above suggestive for soft tissue injury. RICE therapy, however, patient feels better control with scheduled Tylenol to help pain and inflammation at this time in lieu of NSAIDs as patient has CKD. ICE to affected area. Cont other supportive care measures as needed. PT reevaluated and possible discharge to home with home health tomorrow. Subjective Patient seen and examined. Sitting up in the chair. Offers no complaints, eager to be discharged. Pain currently controlled with Tylenol. Physical Exam Constitutional: WD/WN, vitals as above no acute distress Respiratory: normal respiratory effort, lungs clear to auscultation Cardiovascular: Rate/Rhythm: regular rate and regular rhythm Vessels: normal peripheral pulses Extremities: + edema (Trace edema BLE) Gastrointestinal (Abdomen): Percussion/Palpation: abdomen soft; abdomen nontender Musculoskeletal: no cyanosis or clubbing, extremities motor strength 5/5 Skin: no rashes, warm and dry Neurologic: no focal motor deficits Psychiatric: Orientation: alert and oriented x 3 Affect: + tearful affect (At times) Results & Data Results & Data ([facility]) Vital Signs (Past 12 Hours) Vital Signs Temp Pulse Resp BP Pulse Ox 03/07/21 07:34 36.7 C 67 17 153/83 H 98
[2021-03-07] MEDS: DOCUSATE SODIUM/SENNA 50/8.6MG TAB PO SCH (21:08)
[2021-03-07] MEDS: LOVASTATIN 20 MG TAB PO SCH (21:09)
[2021-03-07] MEDS: INSULIN GLARGINE SOLOSTAR 100 UNITS/ML 3 ML PEN SC SCH (21:09)
[2021-03-08] MEDS: HEPARIN SOD 5,000 UNIT/0.5 ML VIAL SQ SCH ×3 (06:36→21:28)
[2021-03-08] MEDS: LEVOTHYROXINE SODIUM 100 MCG TABLET PO SCH (06:37)
[2021-03-08] MEDS: ACETAMINOPHEN 500 MG TAB PO SCH ×2 (09:38→21:27)
[2021-03-08] MEDS: GABAPENTIN 300 MG CAP PO SCH ×2 (09:39→21:27)
[2021-03-08] MEDS: CITALOPRAM 40 MG TAB PO SCH (09:39)
[2021-03-08] MEDS: INSULIN ASPART 100 UNITS/ML 3 ML PEN SC SCH ×4 (09:39→21:32)
[2021-03-08] MEDS: hydroCHLOROthiazide 25 MG TAB PO SCH (09:39)
--- NOTE | 2021-03-08 15:38 | Hospitalist Progress Note ---
Date of Service March 08, 2021 Assessment & Plan (1) Ambulatory dysfunction: (2) Strain of left quadriceps: Plan: -Patient presented from home with reports of left leg pain and inability to bear weight after attempting to pick something up off of the floor -Left femur x-ray questioned fracture; follow up MRI negative for fracture - shows non specific deep soft tissue edema is present in the mid to distal thigh. -Pain/ambulatory dysfunction likely due to quadriceps strain -Orthopedics consulted - Nonsurgical treatment is recommended. Can fully weightbear with a walker for safety -Accepted at [facility] for short term rehab, plan to discharge tomorrow -Pain control with scheduled Tylenol, would avoid NSAIDs due to CKD (3) Abnormal urinalysis: Plan: -asymptomatic bacteruria, UA may also be contaminant -No growth on culture (4) Hypokalemia: Plan: -replaced, resolved (5) HTN (hypertension): Plan: -BP elevated on presentation, likely due to pain. BP now improved. -MO inhibitor discontinued over the summer due to hyperkalemia -continue home HCTZ (6) Diabetes: Plan: -HgbA1c 6.7 10/2020 -Lantus and NovoLog per protocol while hospitalized (7) CKD (chronic kidney disease) stage 3, GFR 30-59 ml/min: Plan: -Renal function stable (8) Sleep apnea: Plan: -CPAP as per home settings (9) Hypothyroidism: Plan: -Continue levothyroxine (10) DVT prophylaxis: Plan: -SQ Heparin Dispo - Stable for discharge when bed available rehab. Admission and Anticipated Discharge Date Admission Date: March 04, 2021 Supervising Physician Co-Signing Physician Notes I have seen and examined the patient and have discussed the case with the provider above. I agree with the assessment and plan as stated. 75 yo F with morbid obesity presented after a soft trauma hearing a pop followed by pain in her left lateral leg including her left hip. Pain is far better than what she came in with and she is able to ambulate somewhat. Exam findings as above suggestive for soft tissue injury. RICE therapy, however, patient feels better control with scheduled Tylenol to help pain and inflammation at this time in lieu of NSAIDs as patient has CKD. ICE to affected area. Cont other supportive care measures as needed. PT reevaluated and since patient wanted to go to rehab, accepted to [facility], possible DC tomorrow. Subjective Patient seen and examined in 312-1. Sitting in bedside chair, just finished participating with PT. Became tearful at plan for discharge home with home health - looked into possi bility of short term rehab at [facility] and per CM bed is available. Pain currently controlled with Tylenol. No fever, chills, lightheadedness, SOB, CP, N/V/D or dysuria. Review of Systems Review of Systems: At least ten systems reviewed and negative except as noted in the HPI. Physical Exam Physical Exam: Gen: WD/WN, NAD, sitting in bedside chair, A&Ox3 HEENT: Normocephalic, atraumatic, conjunctivae moist, sclerae anicteric, mucous membranes moist Lung: Clear to Auscultation bilaterally, no wheezes/rales/rhonchi Heart: Regular rate, regular rhythm, no murmurs, rubs, or gallops Abdomen: Soft, NT, ND +BS x 4 Extremities: no edema Psych: Anxious Skin: Warm, no rash Results & Data Results & Data ([facility]) Vital Signs (Past 12 Hours) Vital Signs Temp Pulse Resp BP Pulse Ox 03/08/21 07:29 37.1 C 65 16 148/83 H 96
[2021-03-08] MEDS: LOVASTATIN 20 MG TAB PO SCH (21:28)
[2021-03-08] MEDS: DOCUSATE SODIUM/SENNA 50/8.6MG TAB PO SCH (21:28)
[2021-03-08] MEDS: INSULIN GLARGINE SOLOSTAR 100 UNITS/ML 3 ML PEN SC SCH (21:31)
[2021-03-09] MEDS: HEPARIN SOD 5,000 UNIT/0.5 ML VIAL SQ SCH (06:26)
[2021-03-09] MEDS: LEVOTHYROXINE SODIUM 100 MCG TABLET PO SCH (06:26)
[2021-03-09] MEDS: ACETAMINOPHEN 500 MG TAB PO SCH (08:37)
[2021-03-09] MEDS: GABAPENTIN 300 MG CAP PO SCH (08:37)
[2021-03-09] MEDS: CITALOPRAM 40 MG TAB PO SCH (08:38)
[2021-03-09] MEDS: hydroCHLOROthiazide 25 MG TAB PO SCH (08:38)
[2021-03-09] MEDS: INSULIN ASPART 100 UNITS/ML 3 ML PEN SC SCH (08:39)
--- NOTE | 2021-03-09 09:23 | Discharge Summary ---
Date of Service March 09, 2021 Admission HPI Per Admitting Provider 75-year-old female PMH DM type II, dyslipidemia, hypothyroidism, VIRGIL on CPAP, HTN, CKD stage III, and other problems listed below who presents to the ED for evaluation of left leg pain. Patient reports that about 2 weeks ago, while bending over to pick something off of the floor and the she felt something pull in the back of her left leg. She reports having to limp on ler left leg since then. Today again while trying to pick something off of the floor, she felt a "pull and a pop" in her left leg. She was able to grab onto a chair just and sit down before falling. Patient reports she attempted to ambulate however was unable to bear weight on her left leg. Patient called EMS and was brought to the ED for further evaluation. Patient reports she otherwise has been feeling well recently. Denies recent illnesses, fevers, chills. No episodes of chest pain or shortness of breath. Denies lightheadedness, dizziness, diaphoresis, or syncopal events. No abdominal pain, nausea, vomiting, diarrhea. Denies urinary symptoms. In the ED, left femur x-ray is questioning possible. Patient is hemodynamically stable and labs are unremarkable/at patient's baseline. Admission Exam Per Admitting Provider WD/WN, vitals as above + obese Eyes: PERRL, conjunctivae normal, anicteric sclerae ENMT: external ear and nose normal, oropharynx normal Respiratory: normal respiratory effort, lungs clear to auscultation Cardiovascular: Rate/Rhythm: regular rate and regular rhythm Vessels: normal peripheral pulses Extremities: no edema Gastrointestinal (Abdomen): normal bowel sounds, soft, nontender, no hepatosplenomegaly Musculoskeletal: no cyanosis or clubbing, extremities motor strength 5/5 left posterior leg pain with minimal movement Skin: no rashes, warm and dry Neurologic: PERRL, EOMI, accommodation nl, no face palsy, no dysarthria Psychiatric: A+Ox3, euthymic affect Principal Diagnosis quadricepts strain Discharge Exam Gen: WD/WN, NAD, sitting in bedside chair, A&Ox3 HEENT: Normocephalic, atraumatic, conjunctivae moist, sclerae anicteric, mucous membranes moist Lung: Clear to Auscultation bilaterally, no wheezes/rales/rhonchi Heart: Regular rate, regular rhythm, no murmurs, rubs, or gallops Abdomen: Soft, NT, ND +BS x 4 Extremities: no edema Skin: Warm, no rash Discharge Data Allergies Allergy/AdvReac Type Severity Reaction Status Date / Time atorvastatin [From Lipitor] Allergy Mild bad dreams Verified 03/04/21 17:40 nitrofurantoin Allergy Mild Gastrointestinal Verified 03/04/21 17:40 Upset adhesive AdvReac Unknown SKIN Verified 03/04/21 17:40 IRRITATIONS Consultations 03/04/21 17:56 ED Decision to Admit Stat 03/04/21 22:23 Consult Anesthesiology Routine Consult Orthopedic Surgery Routine Ordered Studies 03/05/21 18:48 MR femur LT wo con Urgent Hospital Course (1) Ambulatory dysfunction: (2) Strain of left quadriceps: (3) Abnormal urinalysis: (4) Hypokalemia: (5) HTN (hypertension): (6) Diabetes: (7) CKD (chronic kidney disease) stage 3, GFR 30-59 ml/min: (8) Sleep apnea: (9) Hypothyroidism: Patient is a 75yo F who presented with pain of left leg and difficulty walking. There was initial question of left femur fracture on x-ray, so MRI was obtained for further evaluation that did not show femur fracture. On MRI, there was nonspecific deep soft tissue edema is present in the mid to distal thigh that was consistent with quadriceps strain per orthopedic service. Per orthopedics service, nonsurgical treatment is recommended. Can fully weight bear with a walker for safety. Pain is controlled with Tylenol as needed. Discharged to [facility] for short term rehab. Hemodynamically stable at time of discharge. Total Time Total Time Spent Total Time Spent (In Minutes): 35 Discharge Plan Discharge Items Patient Disposition: Transfer Nursing Home Fac Reason For Visit: LEFT FEMUR FRACTURE Discharge Diagnosis: Left quadricept strain Activity: Per Instructions section Non-emergency contact: Primary Care Provider Call non-emergency contact if: you have any medication questions, your symptoms worsen and your pain is not controlled Follow-up/Referrals: Hi Mcdaniels MD [Outside Practitioners] - (Date & Time 03/14/2021 11:00 AM Provider Hi Mcdaniels MD Department [facility] ) Diet: Carb Consistent or DM2 Addtl Attending Provider Instructions: Apolinar, You were admitted for pain of left leg and difficulty walking. There was initial question of left femur fracture on x-ray, so MRI was obtained for further evaluation that did not show femur fracture. On MRI, there was nonspecific deep soft tissue edema is present in the mid to distal thigh that was consistent with quadriceps strain per orthopedic service. Per orthopedics service, nonsurgical treatment is recommended. Can fully weight bear with a walker for safety. Pain is controlled with Tylenol as needed. Please avoid motrin/ibuprofen/advil due to kidney disease. Will discharge to [facility] for short term rehab. RECOMMENDATIONS FOR FOLLOW-UP: Please follow up with Dr. Mcdaniels on 03/14/21 at 11am. OTHER INSTRUCTIONS: Seek medical attention if you have: * temperature above 101 * chest pain or trouble breathing * abdominal pain, nausea, vomiting * diarrhea, dark stools or bloody stools * any unanswered questions or concerns Call 911 if symptoms are severe. Please take good care of yourself. Call if you have any questions or problems. You can reach a [facility] hospitalist on duty at [facility] 24 hours a day by calling [phone]. Subha Adamson PA-C [facility] Hospitalist Pending Studies at Discharge: No Stand-Alone Forms: My [facility] Skilled Items Lines: None Urinary Catheter: No Medications and DC Order Prescriptions: Continued Januvia 100 mg Tablet 100 mg PO QAM RF: 0 multivitamin Tablet 1 tab PO Q OTHER DAY RF: 0 Lantus U-100 Insulin 100 unit/mL Solution 45 unit SUBCUT HS RF: 0 citalopram 40 mg Tablet 40 mg PO QAM RF: 0 lovastatin 40 mg Tablet 40 mg PO HS RF: 0 gabapentin 300 mg Capsule 300 mg PO BID RF: 0 hydrochlorothiazide 25 mg Tablet 25 mg PO QAM RF: 0 albuterol sulfate [Ventolin HFA] 90 mcg/actuation Hfa Aerosol Inhaler 2 puff INHALATION Q4 PRN (Reason: Shortness Of Breath) RF: 0 fluticasone propionate [Flonase Allergy Relief] 50 mcg/actuation [place],Suspension 2 spray INTRANASAL DAILY PRN (Reason: Allergy Symptoms) RF: 0 Apidra U-100 Insulin 100 unit/mL Solution 1 sliding scale dose SUBCUT USEASDIRECTD PRN (Reason: Hyperglycemia) RF: 0 levothyroxine 100 mcg Tablet 100 mcg PO DAILY RF: 0 Discharge Orders: Discharge Order (Routine); Ordered 03/09/21 Ordered By: Subha Adamson Admission Data Admit Date/Time: 03/04/21 18:18 Attending Provider: Case Laird Admit Provider: Sejal Verma Primary Care Provider: Bill Harper Other Providers: Sejal Verma ; Ligia Ogden ; Marco Antonio Farrell ; [facility] ; [place] ; [facility] ; [place] ; Subha Adamson Other Interventions: Discharge Summary Assessment (RN) Last Done: 03/09/21 10:41 Supervising Physician Co-Signing Physician Notes I have seen and examined the patient and have discussed the case with the provider above. I agree with the assessment and plan as stated. 75 yo F with morbid obesity presented after a soft trauma hearing a pop followed by pain in her left lateral leg including her left hip. Pain is far better than what she came in with and she is able to ambulate. Exam findings as above suggestive for soft tissue injury. RICE therapy, however, patient feels better control with scheduled Tylenol to help pain and inflammation at this time in lieu of NSAIDs as patient has CKD. ICE to affected area. Cont other supportive care measures as needed. PT reevaluated and since patient wanted to go to rehab, accepted to [facility], and is being discharged to [facility]. Patient to follow- up with primary care physician within 1 week time. Continue physical therapy.
== END 2021-03-09 11:10 ==
LOC: ED 16:46 → 3E 18:18 → INTOOBSV 18:18 → SUATTDRO 18:18 → 3E 21:48
DX: X50.9XXA Other and unspecified overexertion or strenuous movements or postures, initial encounter; Z88.8 Allergy status to other drugs, medicaments and biological substances; Z79.890 Hormone replacement therapy; N18.30 Chronic kidney disease, stage 3 unspecified; Z79.51 Long term (current) use of inhaled steroids; E66.01 Morbid (severe) obesity due to excess calories; R26.9 Unspecified abnormalities of gait and mobility; J45.909 Unspecified asthma, uncomplicated; Z79.4 Long term (current) use of insulin; M19.90 Unspecified osteoarthritis, unspecified site; S76.112A Strain of left quadriceps muscle, fascia and tendon, initial encounter; I12.9 Hypertensive chronic kidney disease with stage 1 through stage 4 chronic kidney disease, or unspecified chronic kidney disease; E78.5 Hyperlipidemia, unspecified; E11.9 Type 2 diabetes mellitus without complications; E03.9 Hypothyroidism, unspecified; G47.33 Obstructive sleep apnea (adult) (pediatric); E87.6 Hypokalemia; R82.90 Unspecified abnormal findings in urine; Z68.42 Body mass index [BMI] 45.0-49.9, adult; Z79.899 Other long term (current) drug therapy

== ENCOUNTER 2021-11-06 06:21 | Inpatient (IN) ==
--- NOTE | 2021-10-10 16:28 | PAT Medication Instructions ---
Medication Instructions Date of Service October 10, 2021 Home Medications albuterol sulfate 90 mcg/actuation aerosol inhaler (Ventolin HFA) 2 puff INHALATION Q4 PRN citalopram 40 mg tablet 40 mg PO QAM fluticasone propionate 50 mcg/actuation nasal spray,suspension (Flonase Allergy Relief) 2 spray INTRANASAL DAILY PRN gabapentin 300 mg capsule 300 mg PO BID hydrochlorothiazide 25 mg tablet 25 mg PO QAM insulin glargine 100 unit/mL subcutaneous solution (Lantus U-100 Insulin) 35 unit SUBCUT HS insulin glulisine U-100 100 unit/mL subcutaneous solution (Apidra U-100 Insulin) 1 sliding scale dose SUBCUT USEASDIRECTD PRN] lovastatin 40 mg tablet 40 mg PO HS multivitamin 1 tab PO Q OTHER DAY levothyroxine 100 mcg tablet 100 mcg PO QAM meloxicam 15 mg tablet 15 mg PO DAILY PRN sitagliptin 50 mg tablet (Januvia) 50 mg PO QAM ASK your surgeon for instructions meloxicam 15 mg tablet 15 mg PO DAILY PRN DO NOT take the morning of surgery hydrochlorothiazide 25 mg tablet 25 mg PO QAM insulin glulisine U-100 100 unit/mL subcutaneous solution (Apidra U-100 Insulin) 1 sliding scale dose SUBCUT USEASDIRECTD PRN] multivitamin 1 tab PO Q OTHER DAY sitagliptin 50 mg tablet (Januvia) 50 mg PO QAM Take morning of surgery With a small sip of water, OTHERWISE NOTHING TO EAT OR DRINK AFTER MIDNIGHT: albuterol sulfate 90 mcg/actuation aerosol inhaler (Ventolin HFA) 2 puff INHALATION Q4 PRN (use if needed; please bring rescue inhaler with you to hospital day of surgery if possible) citalopram 40 mg tablet 40 mg PO QAM fluticasone propionate 50 mcg/actuation nasal spray,suspension (Flonase Allergy Relief) 2 spray INTRANASAL DAILY PRN (if needed) gabapentin 300 mg capsule 300 mg PO BID levothyroxine 100 mcg tablet 100 mcg PO QAM Take evening before surgery albuterol sulfate 90 mcg/actuation aerosol inhaler (Ventolin HFA) 2 puff INHALATION Q4 PRN (if needed) fluticasone propionate 50 mcg/actuation nasal spray,suspension (Flonase Allergy Relief) 2 spray INTRANASAL DAILY PRN (if needed) gabapentin 300 mg capsule 300 mg PO BID insulin glargine 100 unit/mL subcutaneous solution (Lantus U-100 Insulin) 35 unit SUBCUT HS insulin glulisine U-100 100 unit/mL subcutaneous solution (Apidra U-100 Insulin) 1 sliding scale dose SUBCUT USEASDIRECTD PRN (if needed) lovastatin 40 mg tablet 40 mg PO HS Other Notes If you have any questions please call us at [phone] or [phone] or [phone] or [phone]
--- NOTE | 2021-10-12 14:23 | Anesthesiology Consultation ---
Date of Service October 12, 2021 Assessment & Plan (1) Encounter for pre-operative examination: - Neurosurgery: Likely 2 meningiomas per 10/01/21 brain MRI. Patient referred to neurosurgery by PCP. Awaiting neurosurgery office visit (10/17; S). - COVID screening: Per assessment on 10/12: No known COVID-19 positive contacts or current COVID-19 related symptoms. Travel screen negative. Patient vaccinated. Surgeon arranging preop COVID testing. Awaiting results. - Check BSG AM DOS Chart Review Chart Review: Patient seen in Pre Admission Testing Teaching & Discussion Pre-Anesthesia Teaching/Discussion Notes: Instructed NPO after midnight before surgery,except medications with 15 cc of water. Medication instructions provided according to the PAT guidelines. History Surgery Operation Date: 10/30/21 10:40 Proposed Procedures p Left Total Knee Arthroplasty - Enrique Adamson MD Operation Date: 11/06/21 10:40 Proposed Procedures p Left Total Knee Arthroplasty - Enrique Adamson MD Height/Weight Height: 5 ft Weight: 106.9 kg Allergies Allergy/AdvReac Type Severity Reaction Status Date / Time atorvastatin [From Lipitor] AdvReac Mild Bad dreams Verified 10/10/21 14:55 nitrofurantoin AdvReac Mild GI Upset Verified 10/10/21 14:55 adhesive AdvReac Unknown Skin Verified 10/10/21 14:55 irritations Medications Home Medications Medication Instructions Recorded Confirmed Last Taken albuterol sulfate 90 mcg/actuation 2 puff INHALATION Q4 PRN 10/27/18 10/10/21 07/20/19 05:15 aerosol inhaler (Ventolin HFA) citalopram 40 mg tablet 40 mg PO QAM 10/27/18 10/10/21 08/19/21 fluticasone propionate 50 2 spray INTRANASAL DAILY PRN 10/27/18 10/10/21 Unknown mcg/actuation nasal spray,suspension (Flonase Allergy Relief) gabapentin 300 mg capsule 300 mg PO BID 10/27/18 10/10/21 08/19/21 08:00 hydrochlorothiazide 25 mg tablet 25 mg PO QAM 10/27/18 10/10/21 08/19/21 insulin glargine 100 unit/mL 35 unit SUBCUT HS 10/27/18 10/10/21 08/18/21 subcutaneous solution (Lantus U-100 Insulin) insulin glulisine U-100 100 1 sliding scale dose SUBCUT 10/27/18 10/10/21 03/04/21 unit/mL subcutaneous solution USEASDIRECTD PRN (Apidra U-100 Insulin) lovastatin 40 mg tablet 40 mg PO HS 10/27/18 10/10/21 08/18/21 multivitamin 1 tab PO Q OTHER DAY 10/27/18 10/10/21 08/18/21 levothyroxine 100 mcg tablet 100 mcg PO QAM 03/04/21 10/10/21 08/19/21 meloxicam 15 mg tablet 15 mg PO DAILY PRN 08/13/21 10/10/21 Unknown sitagliptin 50 mg tablet (Januvia) 50 mg PO QAM 08/19/21 10/10/21 08/19/21 Past Medical History Medical History Asthma allergy induced Brain lesion Likely 2 meningiomas per 10/01/21 brain MRI > referred to neurosurgery by PCP (appt scheduled 10/17; [facility]) Depression Diabetes mellitus, type 2 IDDM Hyperlipidemia Hypertension Hypothyroidism Morbid obesity Osteoarthritis Sleep apnea CPAP (compliant) Exercise / Class Metabolic Activity III < 4 Walking/Shop/Light housework Past Family History Family History Father Family history of reaction to anesthesia little slow to wake up Family history of diabetes mellitus Family hx colonic polyps Past Surgical History Surgical History History of anesthesia reaction Slow to wake History of bilateral cataract extraction History of bilateral tubal ligation History of carpal tunnel release Right (07/2019) History of colonoscopy History of dilatation and curettage History of lumbar discectomy History of tonsillectomy and adenoidectomy History of tooth extraction History of wisdom tooth extraction Past Anesthesia History No Family Hx of Anesthesia Complications and Other (Slow to wake) History of PONV No Hx of PONV and No Hx of Motion Sickness Social History Smoking Status: Never smoker Do You Dip or Chew Tobacco: No Hx Alcohol Use: No Hx Substance Use: No substance use type: does not use Review of Systems Patient denies chest pain, shortness of breath, fever, chills, cough, wheezing, palpitations. Physical Exam Vital Signs VITALS BP 142/72 P 84 TEMP 98.5 SP02 96%RA RESP 16 PHYSICAL Full cervical extension range of motion. Full TMJ range of motion. TMD 3.5 finger breaths (difficult to palpate) Mallampati Score 3 Dentition: upper front crowns, left upper side missing tooth Lungs: clear throughout to auscultation Cardiac: regular rate and rhythm, no murmurs noted Spine: normal Carotid arteries: negative bruit Extremities: no edema Lab Results Anesthesia Preop Results Results Anesthesia Widget: WBC 13.43 K/uL (4.8-10.8) H 10/12/21 Hgb 12.0 g/dL (12.0-16.0) 10/12/21 Hct 36.9 % (37-47) L 10/12/21 Plt 261 K/uL (130-400) 10/12/21 Na 139 mmol/L (136-145) 10/12/21 K 3.8 mmol/L (3.5-5.1) 10/12/21 Cl 100 mmol/L (98-107) 10/12/21 CO2 30 mmol/L (21-32) 10/12/21 BUN 27 mg/dl (6-23) H 10/12/21 Creat 1.34 mg/dl (0.6-1.2) H 10/12/21 Glucose Level 218 mg/dl (70-99(Fasting)) H 10/12/21 PT 10.3 Seconds (9.0-12.0) 10/12/21 PTT 24.4 Seconds (21.0-31.0) 10/12/21 INR 1.0 (0.9-1.1) 10/12/21 HA1c 8.6 % (4.5-5.6) H 10/12/21 Blood Type A Positive 10/12/21 Antibody Screen NEGATIVE 10/12/21 Testing Laboratory Results Elevated WBC > will forward preop labs to PCP for continuity of care* Nicole at surgeon's office made aware of elevated hgba1c* Electrocardiogram Date: 08/24/21 Normal sinus rhythm at 80 bpm. Nonspecific T wave abnormality. Chest X-Ray Date: 08/19/21 FINDINGS: Lung volumes are normal. Lungs are clear. There is no pneumothorax or pleural effusion. Cardiomegaly is unchanged. Mediastinal contours are normal. There is no evidence for pulmonary edema. IMPRESSION: No acute cardiopulmonary findings. Other Testing Brain MRI (10/01/21) Two enhancing extraoccipital masses seen along the anterior falx as described, most commonly representing meningiomas. Mild adjacent mass-effect on the left f rontal lobe. No adjacent edema is identified. Neurosurgical consultation may be performed for further evaluation. Small arachnoid cyst seen along the posterosuperior aspect of the right cerebellum. Tiny hypoenhancing lesion within the right parasagittal posterior pituitary that measures 2 mm, which may represent an incidental microadenoma, Rathke's cleft cyst, or additional nonneoplastic cyst.
[~2021-11-06 06:21] MED LIST: ACETAMINOPHEN 500 MG TAB PO SCH; BUPIVACAINE LIPOSOME/PF 266 MG, BUPIVACAINE/EPINEPHRINE 50 ML, SODIUM CHLORIDE 0.9% 30 ... INFIL SCH; CeleBREX 200 MG CAP PO SCH; FAMOTIDINE 20 MG TAB PO SCH; LR 500ML BOLUS, THEN 15ML/HR IV SCH; LR 60ML/HR IV SCH; METOCLOPRAMIDE HCL 10 MG TABLET PO SCH; TRANEXAMIC ACID 1,000 MG **IV Intra-op IV SCH; ceFAZolin 2000MG 2,000 MG/15 ML SYR IV SCH
[2021-11-06] MEDS ORDERED: EPINEPHrine INJ 1 MG/ML AMP ONE (06:24)
[2021-11-06] MEDS ORDERED: BUPIVACAINE 0.5 % 5 MG/1 ML PF 10ML VIAL ONE (06:24)
[2021-11-06] MEDS ORDERED: ROPIVACAINE 0.5% 5 MG/ML 30 ML VIAL ONE (06:24)
--- NOTE | 2021-11-06 06:57 | History & Physical Bridge Note ---
Date of Service November 06, 2021 History & Physical Bridge Note I have examined the patient, reviewed the History & Physical and in the interval since the performance of the History & Physical I have noted the following changes of clinical significance: no changes noted
[2021-11-06] MEDS ORDERED: fentaNYL citrate 100 MCG/2 ML VIAL ONE (07:42)
[2021-11-06] MEDS ORDERED: MIDAZOLAM HCL 1 MG/ML 2ML VIAL ONE (07:42)
[2021-11-06] MEDS ORDERED: PROPOFOL IV EMULSION 10 MG/ML 20 ML VIAL IV ONE (07:59)
[2021-11-06] MEDS ORDERED: BUPIVACAINE/EPINEPHRINE 0.25% 1:200,000 30 ML VIAL ONE (08:28)
[2021-11-06] MEDS ORDERED: BUPIVACAINE LIPOSOME 1.3% 266 MG/20 ML VIAL ONE (08:29)
[2021-11-06] MEDS ORDERED: SODIUM CHLORIDE 0.9% PF 50 ML VIAL ONE (08:29)
[2021-11-06] MEDS ORDERED: VANCOMYCIN HCL 1000MG/20ML VIAL ONE (08:55)
[2021-11-06] MEDS ORDERED: ONDANSETRON INJ 2 MG/ML 2 ML VIAL ONE (08:55)
[2021-11-06] MEDS ORDERED: FLUMAZENIL 0.1 MG/1 ML 10 ML VIAL IV PRN (10:11)
[2021-11-06] MEDS ORDERED: HYDROmorphone INJ 1 MG/ML SYRINGE IV PRN (10:11)
[2021-11-06] MEDS ORDERED: NALOXONE HCL 0.4 MG/1 ML VIAL/CARP IV PRN ×2 (10:11→12:07)
[2021-11-06] MEDS ORDERED: ONDANSETRON INJ 2 MG/ML 2 ML VIAL IV PRN ×2 (10:11→12:07)
[2021-11-06] MEDS ORDERED: ATROPINE SULFATE 0.1 MG/ML 10ML SYR IV PRN (10:11)
[2021-11-06] MEDS ORDERED: LABETALOL HCL IV 5 MG/ML 20ML IV PRN (10:11)
[2021-11-06] MEDS ORDERED: ePHEDrine sulfate 50 MG/ML AMP IV PRN (10:11)
[2021-11-06] MEDS ORDERED: fentaNYL citrate 100 MCG/2 ML VIAL IV PRN (10:11)
[2021-11-06] MEDS ORDERED: PROMETHAZINE HCL 12.5 MG in SODIUM CHLORIDE 0.9% 50 ML IV PRN (10:11)
--- NOTE | 2021-11-06 10:47 | Operative Report ---
PG Post Operative Report Pre & Post Diagnosis Operation Date: 10/30/21 10:40 <No data on this case meets the specified criteria> Operation Date: 11/06/21 08:50 Pre-Op Diagnosis: Left Knee Advanced Degenerative Joint Disease Post-Op Diagnosis: Left Knee Advanced Degenerative Joint Disease I identified the patient and participated in the time-out.: Yes Procedure Operation Date: 10/30/21 10:40 <No data on this case meets the specified criteria> Operation Date: 11/06/21 08:50 Actual Procedures p Left Total Knee Arthroplasty(Left) - Enrique Adamson MD Surgeon Enrique Adamson MD Collections Agent Kin Real PA-C Estimated Blood Loss 50 Findings Consistent with Post-Op Diagnosis Operative findings a large soft tissue envelope. She had grade 4 [id number] disease in all 3 compartments. Not a lot of eburnation but full-thickness cartilage loss. Diffuse osteopenia. Fluids 1400 cc Specimens Left knee sent for pathology Drains None Anesthesia Type Spinal MAC Complications none Disposition Accompanied Patient To Recovery: No Indications Patient is 76-year-old female said a long history of bilateral knee pain discomfort left side greater than right. She been through extensive conservative treatment which became less successful over time. X-rays show advanced knee arthritis. She elected proceed with left total knee arthroplasty. Patient is morbidly obese with lymphedema. We put antibiotics in the cement in order to decrease her risk of infection. Description of Procedure Operative implants consist of: 1. Biomet Vanguard size 60 left posterior stabilized femoral component. 2. Biomet size 63 tibial tray. 3. 10 mm posterior stabilized polyethylene insert. 4. 31 x 8 all Paller patella. The patient was taken to the operating, identified, and placed on the operating table supine position protectors were properly padded. IV antibiotics tried by anesthesia team. A spinal anesthetic and abductor canal block had provided in the holding area. Wilks catheter was placed in sterile fashion. Left thigh tent was then placed in the left lower extremities and prepped and draped in usual sterile fashion. The left leg was elevated exsanguinated with use of an Esmarch in terms playset 350 mmHg. An anterior posterior left knee was then performed to longitudinal incision centered over the patella. Sharp dissection was carried through the subcutaneous tissue down the extensor mechanism. She did have a very thick layer of subcutaneous fat. A medial parapatellar arthrotomy incision was made. Some subperiosteal dissection was carried out medially. The fat pad was resected from each patella tendon. The lateral patellofemoral ligament was released. Patella subluxated laterally and the knee was flexed. The osteophytes were taken off distal femur. ACL and PCL were then released from d istal femur the tibia subluxated anteriorly. The external tibial alignment jig was then placed the interface the tibia and adjusted 12 mm medially. Proximal tibial cut was made remove about 2 mm of bone from the medial side. The tibia was then sized to a size 63. Attention drawn the femur. The distal femur was then with a sharp drill. Intramedullary canal was suction. A left 5 degree valgus cutting guide was placed. The distal femoral cutting block was pinned in place. Distal femoral cut was made to take an additional 3 mm bone off distal femur. The femur was then sized to a size 60. We did downsize this almost an entire size. The AP cutting block was pinned parallel to the epicondylar axis which was 5 degrees of external rotation. The anterior cut, anterior chamfer, posterior cut, posterior chamfer cuts were made. The box cutting guide was placed in just slight lateral box cut was made. The knee was flexed. The remnants of the medial and lateral menisci were excised with the osteophyte taken off the posterior aspect of femur. A trial femoral component was placed for the tibial tray was pinned in maximum external rotation and the drill and stem punch used to create defect in proximal tibia for the tibial tray. Knee was then trialed and the 10 mm insert fit most appropriately. Attention drawn the patella. The patella thickness measured 22 mm in thickness was cut down to 14. Was sized to a size 31 patella. The lug holes were drilled for the 31 patella. The lateral osteophyte was removed. Patella button was placed. Knee was taken through range of motion patella tracked nicely with no thumbs test. Attention drawn to place the permanent components. All trial components were removed. A bone plug was placed in the distal femur limit blood loss. Double batch Palacos G cement was mixed. A Biomet Vanguard size 60 left posterior stabilized femoral component, size 63 tibial tray, a 10 mm posterior stabilized polyethylene insert, and a 31 x 8 all Paller patella were then cemented in place. I did add an additional gram of vancomycin to the cement due to her history of lymphedema and obesity. The knee was brought out into full extension total cement hardened. Final cement check was then performed. The pericapsular tissues were injected with total 100 cc of a combination of 20 cc of Exparel, 30 cc normal saline, 50 cc of quarter percent Marcaine with epinephrine. Patient did receive 1 g tranexamic acid per the tourniquet was then let down for turn time of 60 minutes. Hemostasis reduced electrocautery. Extensor mechanism closed with combination of #1 PDS suture #1 Vicryl suture in a [id number] fashion. Extensor mechanism checked found to be intact and subcutaneous tissues then closed with 2 Dexon suture in buried interrupted fashion skin was closed skin layo. Leg was then cleaned and dried and sterile dressed both Xeroform, 4 fours, sterile ABD pad, sterile cast padding, Kayden bandage were applied. Patient then transferred to the recovery room in stable condition. Patient tolerated procedure well and there are no complications. Kin Real, my physician rehabilitation assistant, was present for the entire procedure. His assistance was essential and required for appropriate patient positioning, prepping and draping, surgical exposure, performing the technical details of the operation, placement the implants, closure of the wound, and placement of the sterile bandage. I attest to the content of the Intraoperative Record and any orders documented therein. Any exceptions are noted below.
--- NOTE | 2021-11-06 11:08 | XRay Report ---
XR knee LT 1 or 2V routine HISTORY: 76 years-old Female Surgical Post Op left knee total joint arthroplasty COMPARISON: 08/13/2021 TECHNIQUE: 2 views of the left knee FINDINGS: Total joint arthroplasty with patellar resurfacing. Anterior midline skin layo are noted along wit h expected postoperative soft tissue swelling with deep tissue air. No acute fracture or unexpected o paque foreign body. IMPRESSION: Total joint arthroplasty with expected postoperative changes. ACT 112: Negative or not required by law. The above report was generated using voice recognition software. It may contain grammatical, syntax o r spelling errors. Electronically signed by: Can Bales M.D. 11/06/2021 11:07 AM
--- NOTE | 2021-11-06 11:17 | Anesthesiology Progress Note ---
Date of Service November 06, 2021 Anesthesia Post Procedure Vital Signs Vital Signs: Temp Pulse Pulse Resp BP Pulse Ox 11/06/21 11:05 36.3 C L 66 16 135/59 L 98 11/06/21 10:55 70 15 132/56 L 100 11/06/21 10:45 70 19 135/61 100 11/06/21 10:39 36.5 C 71 20 121/78 100 11/06/21 07:02 36.8 C 83 20 190/89 H 96 Transfer of Care Handoff Completed per policy Notes Mental Status: alert / awake / arousable Patient Amnestic to Procedure: Yes Nausea / Vomiting: adequately controlled Pain: adequately controlled Airway Patency, RR, SpO2: stable & adequate BP & HR: stable & adequate Hydration State: stable & adequate Neuraxial Anesthesia: was administered and sensory block is resolving Anesthetic Complications: no major complications apparent
[2021-11-06] MEDS ORDERED: PHARMACY GLYCEMIC MGMT CONSULT PRN (12:07)
[2021-11-06] MEDS ORDERED: FLUTICASONE PROPIONATE NA SPR 16 GM BTL NAE PRN (12:07)
[2021-11-06] MEDS ORDERED: METOCLOPRAMIDE HCL INJ 5 MG/ML 2 ML VIAL IV PRN (12:07)
[2021-11-06] MEDS ORDERED: bisacodyL 10 MG SUPP PR PRN (12:07)
[2021-11-06] MEDS ORDERED: ALBUTEROL HFA 8 GM INHALER INH PRN (12:07)
[2021-11-06] MEDS ORDERED: ALUMINUM/MAGNESIUM SUSP 30 ML UDC PO PRN (12:07)
[2021-11-06] MEDS ORDERED: MAGNESIUM HYDROXIDE SUSP 30 ML UDC PO PRN (12:07)
[2021-11-06] MEDS ORDERED: GLUCAGON FOR INJ 1 MG VIAL IM PRN (13:15)
[2021-11-06] MEDS ORDERED: DEXTROSE 50% 50 ML SYRINGE IV PRN (13:15)
[2021-11-06] MEDS ORDERED: GLUCOSE 40% GEL 15 GM TUBE PO PRN (13:15)
[2021-11-06] MEDS ORDERED: GLUCOSE 10 TABS/TUBE PO PRN (13:15)
[2021-11-06] MEDS ORDERED: SODIUM CHLORIDE 0.9% 1000ML 1,000 ML IV SCH (13:30)
--- NOTE | 2021-11-06 14:35 | Pharmacy Report ---
Pharmacy Glycemic Short Note 2 - Date of Service November 06, 2021 - Glycemic Short BSG Results (Last 24 hours): 11/06/21 11/06/21 06:53 12:41 POC Glucose 148 H 164 H OUTPATIENT ANTIDIABETIC REGIMEN: * Lantus 35 units HS, Januvia 50 mg daily, apidra SSI ASSESSMENT: * Patient postop knee surgery, pharmacy consulted for glycemic management. Patient on insulin at home. Postop BSG 164 mg/dL - will start stress of 2 novolog for now. Patient previously admitted 02/2021 - receiving 20 units basal at that time. Will start with Lantus 20 units HS for now, may need to titrate as PO intake improves. Unclear what PO intake will be like today, therefore reduced dosage appropriate PLAN FOR INPATIENT GLYCEMIC CONTROL: * Hold outpatient oral diabetes medications * Basal insulin * Lantus 15-20 units HS based upon BSG value * Bolus insulin * NovoLog per scale ACHS or Q6hrs while NPO * Goal Range: Low 110 mg/dL - High 140 mg/dL * Correction Factor: 20 mg/dL/unit * Nutritional / Prandial insulin per carb ratio of 1 unit per 7 grams CHO consumed
[2021-11-06] MEDS: INSULIN ASPART PER UNIT SC SCH ×3 (14:43→20:33)
[2021-11-06] MEDS: ACETAMINOPHEN 500 MG TAB PO SCH ×2 (14:44→20:32)
[2021-11-06] MEDS: oxyCODONE HCL IR 5 MG TAB (IMMEDIATE RELEASE) PO PRN ×2 (16:57→20:26)
[2021-11-06] MEDS ORDERED: TRANEXAMIC ACID / 0.7% NACL 1,000 MG/100 ML BAG IV SCH (17:00)
[2021-11-06] MEDS: ceFAZolin 2000MG 2,000 MG/15 ML SYR IV SCH (18:05)
[2021-11-06] MEDS: ASCORBIC ACID 500 MG TAB PO SCH (18:06)
[2021-11-06] MEDS: HYDROmorphone INJ 0.5 MG/0.5 ML SYR IV PRN (19:45)
[2021-11-06] MEDS: ASPIRIN 81 MG ECTAB PO SCH (20:25)
[2021-11-06] MEDS: GABAPENTIN 300 MG CAP PO SCH (20:25)
[2021-11-06] MEDS: SENNA 8.6 MG TAB PO SCH (20:26)
[2021-11-06] MEDS: LOVASTATIN 20 MG TAB PO SCH (20:26)
[2021-11-06] MEDS: DOCUSATE SODIUM 100 MG CAP PO SCH (20:26)
[2021-11-06] MEDS: CARBOHYDRATES FOR HYPOGLYCEMIA PO PRN (20:32)
[2021-11-06] MEDS ORDERED: LANTUS PER UNIT CHARGE SQ SCH (21:00)
[2021-11-06] MEDS ORDERED: INSULIN GLARGINE SOLOSTAR 100 UNITS/ML 3 ML PEN SC SCH ×2 (21:00)
[2021-11-07] MEDS: ceFAZolin 2000MG 2,000 MG/15 ML SYR IV SCH (00:01)
[2021-11-07] MEDS: HYDROmorphone INJ 0.5 MG/0.5 ML SYR IV PRN (00:01)
[2021-11-07] MEDS ORDERED: INSULIN ASPART PER UNIT SC ONE (03:00)
[2021-11-07] MEDS: oxyCODONE HCL IR 5 MG TAB (IMMEDIATE RELEASE) PO PRN ×5 (03:48→21:52)
[2021-11-07] MEDS: LEVOTHYROXINE SODIUM 100 MCG TABLET PO SCH (05:36)
[2021-11-07] MEDS: ACETAMINOPHEN 500 MG TAB PO SCH ×3 (05:36→21:54)
[2021-11-07 06:54] LABS: Hematocrit (blood only) 33.1 % (37-47); Hemoglobin 10.6 g/dL (12.0-16.0); Mean Corpuscular Volume 84.4 fL (80-100); Mean Platelet Volume 9.9 fL (7.4-10.4); Platelet Count 208 K/uL (130-400); RDW Coefficient of Variation 14.1 % (11.5-14.5); RDW Standard Deviation 42.9 fL (36.4-46.3); Red Blood Count 3.92 M/uL (4.2-5.4); White Blood Count 13.15 K/uL (4.8-10.8)
[2021-11-07 07:14] LABS: Calcium 8.4 mg/dl (8.5-10.1); Creatinine Clr Calc Pharmacy 37.5 ml/min; Est GFR (African American) 41.8 ml/min; Potassium 3.8 mmol/L (3.5-5.1)
[2021-11-07] MEDS: DOCUSATE SODIUM/SENNA 50/8.6MG TAB PO SCH (08:14)
[2021-11-07] MEDS: hydroCHLOROthiazide 25 MG TAB PO SCH (08:14)
[2021-11-07] MEDS: MULTIVITAMIN TAB PO SCH (08:14)
[2021-11-07] MEDS: CITALOPRAM 40 MG TAB PO SCH (08:15)
[2021-11-07] MEDS: GABAPENTIN 300 MG CAP PO SCH ×2 (08:15→21:54)
[2021-11-07] MEDS: ASCORBIC ACID 500 MG TAB PO SCH ×2 (08:15→16:50)
[2021-11-07] MEDS: DOCUSATE SODIUM 100 MG CAP PO SCH ×2 (08:15→21:55)
[2021-11-07] MEDS: ASPIRIN 81 MG ECTAB PO SCH ×2 (08:16→21:55)
[2021-11-07] MEDS: INSULIN ASPART PER UNIT SC SCH ×4 (08:23→21:50)
[2021-11-07] MEDS ORDERED: INSULIN GLARGINE SOLOSTAR 100 UNITS/ML 3 ML PEN SC SCH ×2 (09:00→21:00)
[2021-11-07] MEDS ORDERED: CEROVITE ADV FORMULA TAB PO SCH (09:00)
[2021-11-07] MEDS ORDERED: SITagliptin PHOSPHATE 25 MG TAB PO SCH (09:00)
--- NOTE | 2021-11-07 12:46 | Pharmacy Report ---
Pharmacy Glycemic Short Note 2 - Date of Service November 07, 2021 - Glycemic Short BSG Results (Last 24 hours): 11/06/21 11/06/21 11/06/21 12:41 17:04 20:28 Glucose POC Glucose 164 H 170 H 52 L* 11/06/21 11/06/21 11/06/21 20:30 20:47 21:07 Glucose POC Glucose 57 L* 63 L* 81 11/07/21 11/07/21 11/07/21 02:54 06:40 07:55 Glucose 186 H POC Glucose 187 H 217 H 11/07/21 12:19 Glucose POC Glucose 206 H OUTPATIENT ANTIDIABETIC REGIMEN: * Lantus 35 units HS, Januvia 50 mg daily, apidra SSI ASSESSMENT: 11/07 * Patient received total of 9 units of insulin yesterday, all of which were correctional insulin * Appears patient only eating minimal last evening. BSGs trended down at HS, hypoglycemia protocol followed. Unclear for reasoning for lower BSGs, will loosen CF/CR this morning * Patient refused all basal insulin last night. Fasting BSG 217 mg/dL - will trial lower dose of Lantus this AM to make up missed basal. Will be less aggressive as unclear how PO intake will be today 11/06 * Patient postop knee surgery, pharmacy consulted for glycemic management. Patient on insulin at home. Postop BSG 164 mg/dL - will start stress of 2 novolog for now. Patient previously admitted 02/2021 - receiving 20 units basal at that time. Will start with Lantus 20 units HS for now, may need to titrate as PO intake improves. Unclear what PO intake will be like today, therefore reduced dosage appropriate PLAN FOR INPATIENT GLYCEMIC CONTROL: * Hold outpatient oral diabetes medications * Basal insulin * Lantus 15 units daily Qam * Bolus insulin * NovoLog per scale ACHS or Q6hrs while NPO * Goal Range: Low 110 mg/dL - High 140 mg/dL * Correction Factor: 20 mg/dL/unit * Nutritional / Prandial insulin per carb ratio of 1 unit per 7 grams CHO consumed
--- NOTE | 2021-11-07 13:58 | Orthopedic Progress Note ---
Date of Service November 07, 2021 Assessment & Plan (1) Status post total left knee replacement: She was seen and examined by Dr. Adamson. PT/OT wbat. dvt prophylaxis: teds/scd's and aspirin Having moderate pain: continue with current pain management. No nsaids as her creatinine is 1.4 Continue discharge planning for rehab after d/c from the hospital Subjective .76 year old patient POD #1 from left tka. She's having quite a bit of pain and states this is the most pain that she has been in. Review of Systems All systems reviewed & are unremarkable except as noted in HPI & below. Physical Exam .alert and oriented. NAD. Left leg: Dressing clean and intact. Able to dorsiflex/plantarflex and move toes appropriately. NVI VSS hgb/hct: 10.6/33.1. cr 1.4 Results & Data Results & Data Laboratory Results . Diagnostic Findings . PG Care Time/CCT Total # of Minutes Spent Total Time Spent with Patient: Total time spent is greater than 50% in coordination of care (as documented) at patient's floor/unit and/or counseling patient: Coding Level of Care Code 72921 Post Operative Follow-Up Diagnoses Status post total left knee replacement Z96.652
[2021-11-07] MEDS: SENNA 8.6 MG TAB PO SCH (21:53)
[2021-11-07] MEDS: LOVASTATIN 20 MG TAB PO SCH (21:53)
[2021-11-08] MEDS: LEVOTHYROXINE SODIUM 100 MCG TABLET PO SCH (06:10)
[2021-11-08] MEDS: ACETAMINOPHEN 500 MG TAB PO SCH ×3 (06:10→22:22)
[2021-11-08] MEDS: hydroCHLOROthiazide 25 MG TAB PO SCH (08:46)
[2021-11-08] MEDS: ASPIRIN 81 MG ECTAB PO SCH ×2 (08:47→21:23)
[2021-11-08] MEDS: DOCUSATE SODIUM/SENNA 50/8.6MG TAB PO SCH (08:47)
[2021-11-08] MEDS: MULTIVITAMIN TAB PO SCH (08:47)
[2021-11-08] MEDS: CITALOPRAM 40 MG TAB PO SCH (08:48)
[2021-11-08] MEDS: GABAPENTIN 300 MG CAP PO SCH ×2 (08:48→21:23)
[2021-11-08] MEDS: DOCUSATE SODIUM 100 MG CAP PO SCH ×2 (08:48→21:21)
[2021-11-08] MEDS: ASCORBIC ACID 500 MG TAB PO SCH ×2 (08:48→17:43)
[2021-11-08] MEDS: INSULIN ASPART PER UNIT SC SCH ×4 (08:59→21:19)
--- NOTE | 2021-11-08 09:02 | Pharmacy Report ---
Pharmacy Glycemic Short Note 2 - Date of Service November 08, 2021 - Glycemic Short BSG Results (Last 24 hours): 11/07/21 11/07/21 11/07/21 12:19 17:20 20:54 POC Glucose 206 H 229 H 199 H 11/08/21 07:50 POC Glucose 191 H OUTPATIENT ANTIDIABETIC REGIMEN: * Lantus 35 units HS, Januvia 50 mg daily, apidra SSI ASSESSMENT: 11/08 * Patient received total of 35 units of insulin yesterday, of which 15 units were basal * Fasting BSG elevated at 191 mg/dL (likely due to skipped dose of basal on 11/06 PM), anticipate BSGs to improve more today with basal on board now * Will plan to adjust basal dose from daily in the AM to daily at bedtime which matches how patient takes at home. Will resume basal today at lunch, then adjust tomorrow's dose 11/09 to dinner time, then following day to HS time 11/07 * Patient received total of 9 units of insulin yesterday, all of which were correctional insulin * Appears patient only eating minimal last evening. BSGs trended down at HS, hypoglycemia protocol followed. Unclear for reasoning for lower BSGs, will loosen CF/CR this morning * Patient refused all basal insulin last night. Fasting BSG 217 mg/dL - will trial lower dose of Lantus this AM to make up missed basal. Will be less aggressive as unclear how PO intake will be today 11/06 * Patient postop knee surgery, pharmacy consulted for glycemic management. New ramírez on insulin at home. Postop BSG 164 mg/dL - will start stress of 2 novolog for now. Patient previously admitted 02/2021 - receiving 20 units basal at that time. Will start with Lantus 20 units HS for now, may need to titrate as PO intake improves. Unclear what PO intake will be like today, therefore reduced dosage appropriate PLAN FOR INPATIENT GLYCEMIC CONTROL: * Hold outpatient oral diabetes medications * Basal insulin * Lantus 20 units daily - gradually move dose to PM time to match what patient takes at home * Bolus insulin * NovoLog per scale ACHS or Q6hrs while NPO * Goal Range: Low 110 mg/dL - High 140 mg/dL * Correction Factor: 20 mg/dL/unit * Nutritional / Prandial insulin per carb ratio of 1 unit per 7 grams CHO consumed
[2021-11-08] MEDS ORDERED: INSULIN GLARGINE SOLOSTAR 100 UNITS/ML 3 ML PEN SC ONE (12:30)
--- NOTE | 2021-11-08 13:16 | Progress Notes ---
DATE OF SERVICE: 11/08/2021. SUBJECTIVE: The patient is a 76-year-old female, now postoperative day 2 from a left knee replacemen t. She is doing pretty well. Doing a little bit better than yesterday. Pain is still very present, but slightly improved. No chest pain or shortness of breath. Not feeling dizzy or lightheaded. OBJECTIVE: VITAL SIGNS: Temperature 36.8. Vital signs are stable. PHYSICAL EXAMINATION: GENERAL: Shows a pleasant, elderly female. Sitting up in her bedside chair, looks pretty comfortabl e. EXTREMITIES: Examination of the left leg reveals the dressing to be clean, dry and intact. No detec table drainage. She can dorsiflex and plantarflex her foot appropriately. She cannot quite do a str aight leg raise. ASSESSMENT: A 76-year-old female postoperative day 2 from a left knee replacement, doing reasonably well. A bit more painful than what she had expected. PLAN: 1. DVT prophylaxis including thigh-high TEDs, SCDs, and aspirin twice a day. 2. PT, OT, weightbear as tolerated. Left total knee protocol. 3. Pain control, doing okay with current pain regimen. 4. Disposition: Plan to discharge to rehab or long term facility. Still looking for placeisabel t. Job ID: [id number]
[2021-11-08] MEDS: oxyCODONE HCL IR 5 MG TAB (IMMEDIATE RELEASE) PO PRN (18:58)
[2021-11-08] MEDS: LOVASTATIN 20 MG TAB PO SCH (21:20)
[2021-11-08] MEDS: SENNA 8.6 MG TAB PO SCH (21:22)
[2021-11-09] MEDS: ACETAMINOPHEN 500 MG TAB PO SCH ×3 (06:33→21:10)
[2021-11-09] MEDS: LEVOTHYROXINE SODIUM 100 MCG TABLET PO SCH (06:33)
[2021-11-09] MEDS: ASCORBIC ACID 500 MG TAB PO SCH ×2 (08:31→17:23)
[2021-11-09] MEDS: hydroCHLOROthiazide 25 MG TAB PO SCH (08:31)
[2021-11-09] MEDS: DOCUSATE SODIUM/SENNA 50/8.6MG TAB PO SCH (08:31)
[2021-11-09] MEDS: CITALOPRAM 40 MG TAB PO SCH (08:31)
[2021-11-09] MEDS: INSULIN ASPART PER UNIT SC SCH ×4 (08:31→21:59)
[2021-11-09] MEDS: MULTIVITAMIN TAB PO SCH (08:31)
[2021-11-09] MEDS: ASPIRIN 81 MG ECTAB PO SCH ×2 (08:31→20:33)
[2021-11-09] MEDS: GABAPENTIN 300 MG CAP PO SCH ×2 (08:31→20:32)
[2021-11-09] MEDS: DOCUSATE SODIUM 100 MG CAP PO SCH ×2 (08:32→20:32)
--- NOTE | 2021-11-09 08:39 | Progress Notes ---
DATE OF SERVICE: 11/09/2021. SUBJECTIVE: A 76-year-old female postop day 3 from a left knee replacement. She is doing a bit bett er today. Pain is getting a little better each day. No chest pain or shortness of breath. Not feel ing dizzy or lightheaded. OBJECTIVE: VITAL SIGNS: Temperature 36.8. Vital signs are stable. PHYSICAL EXAMINATION: GENERAL: Shows a pleasant, elderly female. She is sitting in her bedside chair this morning and loo ty pretty comfortable. EXTREMITIES: Examination of the left knee reveals the dressing to be clean, dry and intact. Minimal drainage. She can dorsiflex and plantarflex her foot appropriately. She is neurologically intact. ASSESSMENT: A 76-year-old female postop day 3 from left knee replacement, doing pretty well. Her pa in is controlled. Seems to be getting better. We are just waiting for placement. PLAN: 1. DVT prophylaxis includes thigh-high TEDs, SCDs, and aspirin twice a day. 2. PT, OT, weightbear as tolerated. Left total knee protocol. 3. Pain control, doing okay with current pain regimen. 4. Disposition: Plan to discharge to rehab or [facility] facility. Just waiting for placement . Job ID: [id number]
[2021-11-09] MEDS ORDERED: INSULIN GLARGINE SOLOSTAR 100 UNITS/ML 3 ML PEN SC SCH (18:00)
[2021-11-09] MEDS ORDERED: INSULIN GLARGINE SOLOSTAR 100 UNITS/ML 3 ML PEN SC ONE (18:00)
[2021-11-09] MEDS: oxyCODONE HCL IR 5 MG TAB (IMMEDIATE RELEASE) PO PRN (20:31)
[2021-11-09] MEDS: LOVASTATIN 20 MG TAB PO SCH (20:33)
[2021-11-09] MEDS: SENNA 8.6 MG TAB PO SCH (20:33)
[2021-11-10] MEDS: LEVOTHYROXINE SODIUM 100 MCG TABLET PO SCH (05:31)
[2021-11-10] MEDS: ACETAMINOPHEN 500 MG TAB PO SCH ×3 (05:32→21:42)
--- NOTE | 2021-11-10 07:24 | Orthopedic Progress Note ---
Date of Service November 10, 2021 Assessment & Plan (1) Status post total left knee replacement: Overall she continues to slowly improve. She is on aspirin for DVT prophylaxis. She will be seen by physical therapy again today for ambulation and range of motion exercises. We are currently awaiting placement at a rehab facility. This will likely occur on Friday. Sonja Jiang was seen and examined at bedside this morning. Overall she is doing okay. She is having a little bit of pain in the knee but is not too bad. She has been up and ambulating and participating well with physical therapy. She has no new complaints. Review of Systems All systems reviewed & are unremarkable except as noted in HPI & below. Physical Exam On physical examination of the left knee, the dressing is clean and dry. She has active dorsiflexion plantarflexion of her left ankle. Results & Data Results & Data Laboratory Results . Diagnostic Findings . PG Care Time/CCT Total # of Minutes Spent Total Time Spent with Patient: Total time spent is greater than 50% in coordination of care (as documented) at patient's floor/unit and/or counseling patient: Coding Level of Care Code 89782 Post Operative Follow-Up Diagnoses Status post total left knee replacement Z96.652
[2021-11-10] MEDS: MULTIVITAMIN TAB PO SCH (08:36)
[2021-11-10] MEDS: DOCUSATE SODIUM/SENNA 50/8.6MG TAB PO SCH (08:36)
[2021-11-10] MEDS: GABAPENTIN 300 MG CAP PO SCH ×2 (08:36→21:45)
[2021-11-10] MEDS: ASPIRIN 81 MG ECTAB PO SCH ×2 (08:36→21:46)
[2021-11-10] MEDS: DOCUSATE SODIUM 100 MG CAP PO SCH ×2 (08:36→21:44)
[2021-11-10] MEDS: ASCORBIC ACID 500 MG TAB PO SCH ×2 (08:36→17:24)
[2021-11-10] MEDS: oxyCODONE HCL IR 5 MG TAB (IMMEDIATE RELEASE) PO PRN (08:36)
[2021-11-10] MEDS: hydroCHLOROthiazide 25 MG TAB PO SCH (08:36)
[2021-11-10] MEDS: CITALOPRAM 40 MG TAB PO SCH (08:36)
[2021-11-10] MEDS: INSULIN ASPART PER UNIT SC SCH ×4 (08:40→21:39)
[2021-11-10] MEDS: INSULIN GLARGINE SOLOSTAR 100 UNITS/ML 3 ML PEN SC SCH (21:40)
[2021-11-10] MEDS: LOVASTATIN 20 MG TAB PO SCH (21:44)
[2021-11-10] MEDS: SENNA 8.6 MG TAB PO SCH (21:45)
[2021-11-11] MEDS: ACETAMINOPHEN 500 MG TAB PO SCH ×3 (05:54→22:04)
[2021-11-11] MEDS: LEVOTHYROXINE SODIUM 100 MCG TABLET PO SCH (05:54)
--- NOTE | 2021-11-11 07:57 | Orthopedic Progress Note ---
Date of Service November 11, 2021 Assessment & Plan (1) Status post total left knee replacement: Overall she is doing fairly well. She is participating well with physical therapy but she has a lot of soreness in her left knee. She is on aspirin for DVT prophylaxis. She will be seen by physical therapy today for ambulation and range of motion exercises. We are currently awaiting placement in rehab facility. Sonja Jiang was seen and examined at bedside this morning. Overall she is doing okay. She has some soreness in her knee but is not too bad. She has been participating well with physical therapy. She has no new complaints. Review of Systems All systems reviewed & are unremarkable except as noted in HPI & below. Physical Exam On physical examination of the left knee, the dressing has been changed. Her leg is out in full extension. She has active dorsiflexion plantarflexion of her left ankle. Results & Data Results & Data Laboratory Results . Diagnostic Findings . PG Care Time/CCT Total # of Minutes Spent Total Time Spent with Patient: Total time spent is greater than 50% in coordination of care (as documented) at patient's floor/unit and/or counseling patient: Coding Level of Care Code 34205 Post Operative Follow-Up Diagnoses Status post total left knee replacement Z96.652
[2021-11-11] MEDS: hydroCHLOROthiazide 25 MG TAB PO SCH (08:38)
[2021-11-11] MEDS: GABAPENTIN 300 MG CAP PO SCH ×2 (08:39→20:06)
[2021-11-11] MEDS: DOCUSATE SODIUM 100 MG CAP PO SCH ×2 (08:39→20:06)
[2021-11-11] MEDS: DOCUSATE SODIUM/SENNA 50/8.6MG TAB PO SCH (08:39)
[2021-11-11] MEDS: MULTIVITAMIN TAB PO SCH (08:39)
[2021-11-11] MEDS: ASPIRIN 81 MG ECTAB PO SCH ×2 (08:39→20:06)
[2021-11-11] MEDS: CITALOPRAM 40 MG TAB PO SCH (08:39)
[2021-11-11] MEDS: INSULIN ASPART PER UNIT SC SCH ×4 (08:41→20:41)
[2021-11-11] MEDS: ASCORBIC ACID 500 MG TAB PO SCH ×2 (09:01→16:58)
[2021-11-11] MEDS: oxyCODONE HCL IR 5 MG TAB (IMMEDIATE RELEASE) PO PRN (13:57)
[2021-11-11] MEDS: CARBOHYDRATES FOR HYPOGLYCEMIA PO PRN (16:54)
[2021-11-11] MEDS: LOVASTATIN 20 MG TAB PO SCH (20:06)
[2021-11-11] MEDS: SENNA 8.6 MG TAB PO SCH (20:07)
[2021-11-11] MEDS: INSULIN GLARGINE SOLOSTAR 100 UNITS/ML 3 ML PEN SC SCH (20:42)
[2021-11-11] MEDS ORDERED: INSULIN ASPART PER UNIT SC SCH (21:00)
[2021-11-12] MEDS: oxyCODONE HCL IR 5 MG TAB (IMMEDIATE RELEASE) PO PRN ×3 (01:27→19:51)
[2021-11-12] MEDS: LEVOTHYROXINE SODIUM 100 MCG TABLET PO SCH (05:42)
[2021-11-12] MEDS: ACETAMINOPHEN 500 MG TAB PO SCH ×3 (05:42→21:22)
[2021-11-12] MEDS: DOCUSATE SODIUM/SENNA 50/8.6MG TAB PO SCH (07:49)
[2021-11-12] MEDS: DOCUSATE SODIUM 100 MG CAP PO SCH ×2 (07:50→19:53)
[2021-11-12] MEDS: hydroCHLOROthiazide 25 MG TAB PO SCH (08:25)
[2021-11-12] MEDS: ASCORBIC ACID 500 MG TAB PO SCH ×2 (08:25→18:02)
[2021-11-12] MEDS: ASPIRIN 81 MG ECTAB PO SCH ×2 (08:25→19:54)
[2021-11-12] MEDS: MULTIVITAMIN TAB PO SCH (08:25)
[2021-11-12] MEDS: CITALOPRAM 40 MG TAB PO SCH (08:26)
[2021-11-12] MEDS: GABAPENTIN 300 MG CAP PO SCH ×2 (08:26→19:53)
[2021-11-12] MEDS: INSULIN ASPART PER UNIT SC SCH ×4 (08:27→21:06)
--- NOTE | 2021-11-12 10:37 | Pharmacy Report ---
Pharmacy Glycemic Short Note 2 - Date of Service November 12, 2021 - Glycemic Short BSG Results (Last 24 hours): 11/11/21 11/11/21 11/11/21 11:41 16:50 16:51 POC Glucose 294 H 51 L* 44 L* 11/11/21 11/11/21 11/12/21 17:10 20:27 08:00 POC Glucose 96 223 H 142 H OUTPATIENT ANTIDIABETIC REGIMEN: * Lantus 35 units HS, Januvia 50 mg daily, apidra SSI ASSESSMENT: 11/12 * Patient received total 55 units of insulin yesterday; 30 units basal and 25 units bolus. * BSGs yesterday were [id number] mg/dl. Fasting BSG and pre-lunch BSGs were elevated yesterday. Patient had snacked on a pack of crackers before the lunch BSG check yesterday causing the high BSG at lunch. * This resulted in patient receiving too much bolus insulin at lunch and becoming hypoglycemic at dinner time. * So Novolog carb ratio was loosened with lunch to avoid potential hypoglycemia at dinner. * Fasting BSG today was 142 mg/dl. Will continue with the same dose scale of basal insulin at HS. 11/08 * Patient received total of 35 units of insulin yesterday, of which 15 units were basal * Fasting BSG elevated at 191 mg/dL (likely due to skipped dose of basal on 11/06 PM), anticipate BSGs to improve more today with basal on board now * Will plan to adjust basal dose from daily in the AM to daily at bedtime which matches how patient takes at home. Will resume basal today at lunch, then adjust tomorrow's dose 11/09 to dinner time, then following day to HS time 11/07 * Patient received total of 9 units of insulin yesterday, all of which were correctional insulin * Appears patient only eating minimal last evening. BSGs trended down at HS, hypoglycemia protocol followed. Unclear for reasoning for lower BSGs, will loosen CF/CR this morning * Patient refused all basal insulin last night. Fasting BSG 217 mg/dL - will trial lower dose of Lantus this AM to make up missed basal. Will be less aggressive as unclear how PO intake will be today 11/06 * Patient postop knee surgery, pharmacy consulted for glycemic management. Patient on insulin at home. Postop BSG 164 mg/dL - will start stress of 2 novolog for now. Patient previously admitted 02/2021 - receiving 20 units basal at that time. Will start with Lantus 20 units HS for now, may need to titrate as PO intake improves. Unclear what PO intake will be like today, therefore reduced dosage appropriate PLAN FOR INPATIENT GLYCEMIC CONTROL: * Hold outpatient oral diabetes medications * Basal insulin * Lantus 25-30 units dose scale at HS based on BSG. * Bolus insulin * NovoLog per scale ACHS or Q6hrs while NPO * Goal Range: Low 110 mg/dL - High 140 mg/dL * Correction Factor: 20 mg/dL/unit * Nutritional / Prandial insulin per carb ratio of 1 unit per 6 grams CHO consumed at breakfast and 1 unit per 7 grams of CHO for lunch, dinner and HS
[2021-11-12] MEDS: SENNA 8.6 MG TAB PO SCH (19:53)
[2021-11-12] MEDS: LOVASTATIN 20 MG TAB PO SCH (19:55)
--- NOTE | 2021-11-12 20:31 | Progress Notes ---
DATE OF SERVICE: 11/12/2021. SUBJECTIVE: A 76-year-old female, now 6 days out from left total knee replacement. She has been in the hospital due to failure of replacement. She continues to have moderate amount of pain. She repeatedly says she does not feel safe going home. She does not feel confident in her walking ability or getting around safely. She has been denied rehab. Her pain seems to get little bit better. No chest pain or shortness of breath. Not feeling dizzy or lightheaded. OBJECTIVE: VITAL SIGNS: Temperature is 36.3. Vital signs are stable. PHYSICAL EXAMINATION: GENERAL: Shows a pleasant, elderly female. Sitting up on her bed and looks reasonably comfortable. EXTREMITIES: Examination of the left leg reveals a large soft tissue envelope. Dressing is clean, dry and intact. She cannot do a straight leg raise. She can dorsiflex and plantarflex her foot appropriately. She is neurologically intact. LABORATORY DATA: None. ASSESSMENT: A 76-year-old female, postop day 6 from a left total knee replacement. She has been awaiting placement, but denied for unclear reasons. We tried to talk to the insurance company there, but they once again said that they felt she was okay to go home. I stressed the importance that this lady is not safe for going home and I think she would be at significant fall risk. We will see if we can contact them again tomorrow and further pursue this issue. I am hesitant to send her home in this situation. PLAN: 1. DVT prophylaxis includes thigh-high TEDs, SCDs, and aspirin twice a day. 2. PT, OT, weightbear as tolerated. Left total knee protocol. 3. Pain control, doing okay with current pain regimen. Pain is reasonably controlled. 4. Disposition: We are just really waiting for placement. I do not think she is safe going home, but we cannot keep her in the hospital either. We will appeal to the insurance company again tomorrow. Job ID: [id number] [facility]
[2021-11-12] MEDS: INSULIN GLARGINE SOLOSTAR 100 UNITS/ML 3 ML PEN SC SCH (21:20)
[2021-11-13] MEDS: LEVOTHYROXINE SODIUM 100 MCG TABLET PO SCH (05:06)
[2021-11-13] MEDS: ACETAMINOPHEN 500 MG TAB PO SCH ×3 (05:06→21:27)
[2021-11-13] MEDS: ASCORBIC ACID 500 MG TAB PO SCH ×2 (09:11→17:42)
[2021-11-13] MEDS: CITALOPRAM 40 MG TAB PO SCH (09:11)
[2021-11-13] MEDS: ASPIRIN 81 MG ECTAB PO SCH ×2 (09:12→21:27)
[2021-11-13] MEDS: MULTIVITAMIN TAB PO SCH (09:13)
[2021-11-13] MEDS: DOCUSATE SODIUM 100 MG CAP PO SCH ×2 (09:13→21:27)
[2021-11-13] MEDS: GABAPENTIN 300 MG CAP PO SCH ×2 (09:13→21:27)
[2021-11-13] MEDS: hydroCHLOROthiazide 25 MG TAB PO SCH (09:13)
[2021-11-13] MEDS: DOCUSATE SODIUM/SENNA 50/8.6MG TAB PO SCH ×2 (09:14→09:17)
[2021-11-13] MEDS: INSULIN ASPART PER UNIT SC SCH ×4 (09:23→21:34)
--- NOTE | 2021-11-13 14:39 | Progress Notes ---
DATE OF SERVICE: 11/13/2021. SUBJECTIVE: A 76-year-old female now 1 week out from a left knee replacement. She has been just jake ting for placement. Insurance denied rehab and prison facility. The patient does not feel safe going home. Therapy is recommended, she go to a prison. Her pains are getting a littl e bit better daily. No chest pain or shortness of breath. OBJECTIVE: VITAL SIGNS: Temperature 37.0. Vital signs are stable. PHYSICAL EXAMINATION: GENERAL: Shows a pleasant middle-aged female. She is sitting in her bed, looks reasonably comfortab le. EXTREMITIES: Examination of the left leg reveals the dressing to be clean, dry and intact. She has got a moderate to large soft tissue envelope. She can dorsiflex and plantarflex her foot appropriate ly. She still struggles doing a straight leg raise. ASSESSMENT: A 76-year-old white female now postop day 7 from a left knee replacement, doing okay. S he is just fairly large lady, multiple medical comorbidities, and lives by herself. She is recoverin g appropriately considering all these things, but not safe to go home. She has been denied insurance authorization for prison or rehab, which I think is inappropriate. We are currently appeal ing that. PLAN: 1. DVT prophylaxis includes thigh-high TEDs, SCDs, and aspirin twice a day. 2. PT, OT, weightbear as tolerated. Left total knee protocol. 3. Pain control, doing okay with current pain regimen. 4. Disposition: We are appealing the insurance companies denial of rehab/prison facility. Hopefully, we will get approval in the next day. Job ID: [id number]
[2021-11-13] MEDS: SENNA 8.6 MG TAB PO SCH (21:25)
[2021-11-13] MEDS: LOVASTATIN 20 MG TAB PO SCH (21:27)
[2021-11-13] MEDS: INSULIN GLARGINE SOLOSTAR 100 UNITS/ML 3 ML PEN SC SCH (21:29)
[2021-11-13] MEDS: oxyCODONE HCL IR 5 MG TAB (IMMEDIATE RELEASE) PO PRN (22:24)
[2021-11-14] MEDS: LEVOTHYROXINE SODIUM 100 MCG TABLET PO SCH (05:40)
[2021-11-14] MEDS: ACETAMINOPHEN 500 MG TAB PO SCH (05:40)
[2021-11-14] MEDS: ASPIRIN 81 MG ECTAB PO SCH (08:09)
[2021-11-14] MEDS: CITALOPRAM 40 MG TAB PO SCH (08:09)
[2021-11-14] MEDS: hydroCHLOROthiazide 25 MG TAB PO SCH (08:10)
[2021-11-14] MEDS: DOCUSATE SODIUM/SENNA 50/8.6MG TAB PO SCH (08:10)
[2021-11-14] MEDS: MULTIVITAMIN TAB PO SCH (08:10)
[2021-11-14] MEDS: GABAPENTIN 300 MG CAP PO SCH (08:10)
[2021-11-14] MEDS: ASCORBIC ACID 500 MG TAB PO SCH (08:10)
[2021-11-14] MEDS: DOCUSATE SODIUM 100 MG CAP PO SCH (08:10)
[2021-11-14] MEDS: INSULIN ASPART PER UNIT SC SCH (09:18)
--- NOTE | 2021-11-14 12:10 | Progress Notes ---
DATE OF SERVICE: 11/14/2021. SUBJECTIVE: A 76-year-old female, now 8 days out from a left knee replacement. She continues to milvia e gradual improvements. Pain is slowly improving. She is hoping to go to a detention facility today. Denies any chest pain or shortness of breath. OBJECTIVE: VITAL SIGNS: Temperature 36.6. Vital signs are stable. PHYSICAL EXAMINATION: GENERAL: Shows a pleasant middle-aged female. She is walking around her room this afternoon quite w ell. EXTREMITIES: Examination of the left leg reveals the dressing to be clean, dry and intact. A large soft tissue envelope. She is neurologically intact. ASSESSMENT: A 76-year-old female, now 8 days out from left knee replacement, doing pretty well. She is making gradual improvements. She is functionally improving. Unfortunately, we are just waiting for placement. PLAN: 1. DVT prophylaxis including thigh-high TEDs, SCDs, and aspirin twice a day. 2. PT, OT, weightbear as tolerated. Left total knee protocol. 3. Pain control, doing okay with current pain regimen. 4. Disposition: Plan to discharge to detention facility hopefully later today. Job ID: [id number]
--- NOTE | 2021-11-17 07:31 | Discharge Summary ---
Date of Service November 17, 2021 Discharge Data Procedures Performed Operation Date: 10/30/21 10:40 <No data on this case meets the specified criteria> Operation Date: 11/06/21 08:50 Actual Procedures p Left Total Knee Arthroplasty(Left) - Enrique Adamson MD Hospital Course (1) Status post total left knee replacement: This is a 76 year old patient admitted on 11/06/21 and underwent total knee arthroplasty. She tolerated the procedure well and there were no complications. Transferred to the PACU post op and later to the orthopedic floor for further ca re. She was given ancef for antibiotic prophylaxis. She was also given HARESH stockings, SCDs, and aspirin for DVT prophylaxis. Hemoglobin, hematocrit, and vital signs were monitored during her hospital stay and remained stable. Did not require any blood transfusions. There were no complications during her hospital stay. She was not safe to go home alone and initially denied by insurance for rehab/ senior care facility. Appeals were made to her insurance company. By post op day #8 the patient was tolerating a diabetic diet, pain was reasonably controlled with oral pain medicine, and she was participating in physical therapy. On post op day #8 the patient was discharged to a senior care facility. She was given printed discharge instructions including prescriptions for extra strength tylenol, aspirin, zofran, and oxycodone. Continue physical therapy, weight bearing as tolerated. Continue HARESH stockings. Follow up approximately 2 weeks post op or sooner if there are problems or concerns. Coding Level of Care Code None Diagnoses Status post total left knee replacement Z96.652
== END 2021-11-14 12:07 | DRG 470 ==
LOC: PACUINP 06:21 → ASU 06:21 → 3E 13:03

== ENCOUNTER 2023-03-04 12:40 | Inpatient (IN) ==
--- NOTE | 2023-03-04 13:12 | ED Triage Note ---
Date of Service March 04, 2023 History of Present Illness This patient was briefly evaluated while in triage. An abbreviated physical exam was performed. This patient is a 77-year-old Female who presents to the ED for evaluation of headache and trouble remembering things. This has been going on for "a while." She was being seen at nephrology for a ckd follow-up and was sent here. I spoke with Dr. Rock, who called with concerns about the patient. She states that patient was very confused today and this is not her baseline. She states that the patient lives at home alone and she does not feel the patient is safe at home. Physical Exam VITALS: Vitals are noted on the nurse's note and reviewed by myself. GENERAL: This is a 77-year-old, in no acute distress, well-developed well- nourished. SKIN: The skin was without rashes. HEAD: Normocephalic atraumatic. EYES: Pupils equal round and reactive to light and accommodation. MOUTH: Mucous membranes moist. Tonsils are not enlarged. Pharynx without erythema or exudate. NECK: Supple without nuchal rigidity. Cervical spine is nontender. HEART: Regular rate and rhythm without murmurs gallops or rubs. LUNGS: Clear to auscultation bilaterally without wheezes, rales or rhonchi. NEURO: Patient was alert and answers questions appropriately. Initial orders for labs and / or imaging were placed and patient was placed in the waiting area until a bed is available. Please see further documentation for the full ED course. MDM / Impression Impression Impression: Acute UTI, Altered mental status
[2023-03-04 14:44] LABS: Basophils # (auto) 0.05 K/uL (0.00-0.20); Basophils % (auto) 0.4 %; Eosinophils # (auto) 0.12 K/uL (0.00-0.50); Eosinophils % (auto) 0.9 %; Hematocrit (blood only) 39.3 % (37.0-47.0); Hemoglobin 12.8 g/dl (12.0-16.0); Immature Granulocytes # (auto) 0.06 K/uL (0.01-0.20); Immature Granulocytes % (auto) 0.5 %; Lymphocytes # (auto) 2.27 K/uL (1.20-3.40); Lymphocytes % (auto) 17.1 %; Mean Corpuscular Hemoglobin 26.9 pg (25.0-34.0); Mean Corpuscular Hgb Conc 32.6 g/dL (32.0-36.0); Mean Corpuscular Volume 82.7 fL (80.0-100.0); Mean Platelet Volume 9.8 fL (9.4-12.4); Monocytes # (auto) 0.94 K/uL (0.11-0.59); Monocytes % (auto) 7.1 %; Platelet Count 281 K/uL (130-400); RDW Coefficient of Variation 13.9 % (11.5-14.5); RDW Standard Deviation 41.6 fL (36.4-46.3); Red Blood Count 4.75 M/uL (4.20-5.40); White Blood Count 13.24 K/ul (4.8-10.8)
[2023-03-04 14:59] LABS: Albumin Globulin Ratio 1.4 (0.9-2); Albumin Level 4.2 gm/dl (3.4-5.0); BUN Creatinine Ratio 23.8 (10-20); Bilirubin,Total 0.8 mg/dl (0.2-1.0); Calcium 9.7 mg/dl (8.6-10.3); Creatinine Clr Calc Pharmacy 43.3 ml/min; Est GFR (African American) 47.9 ml/min; Est GFR (Non-African American) 41.4 ml/min; Magnesium 1.9 mg/dl (1.7-2.4); Potassium 3.1 mmol/L (3.5-5.1); Total Protein 7.2 gm/dl (6.0-8.3)
--- NOTE | 2023-03-04 15:10 | CT Scan Report ---
CT head/brain wo con CLINICAL HISTORY: Confusion, headache Technique: Contiguous axial CT images of the head were acquired from the base of the skull to the lizabeth brenna without intravenous contrast administration. Images were viewed in brain, subdural and [facility]. Automated dose lowering techniques and/or adjustment according to patient size were utilized for this exam. Comparison: Comparison is made to CTA head 02/21/2023 Findings: Areas of decreased attenuation are present in the periventricular and subcortical white matter bilate rally consistent with small vessel ischemic disease. Generalized cerebral atrophy with commensurate e nlargement of the ventricles, sulci, and cisterns is also present. There is no acute intracranial hem orrhage or evidence of acute territorial infarction. No shift of the midline structures, mass effect, or extra-axial abnormalities are shown. Atherosclerotic calcifications are present in the intracran ial segments of the internal carotid arteries. 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 Imaged portions of the paranasal sinuses and mastoid air cells are clear. The orbits appear normal. There are no acute fractures of the calvaria or scalp swelling. Impression: 1. No acute intracranial hemorrhage, no evidence of acute territorial infarction or other acute intr acranial disease process. 2. Partial visualization of anterior falx meningioma. ACT 112: Negative or not required by law. Electronically signed by: Tyrell Mcleod M.D. 03/04/2023 3:09 PM
[2023-03-04 15:48] LABS: Appearance Urine Clear (Clear); Bacteria Urine Automated 1+ (Negative); Bilirubin Urine Negative (Negative); Blood Urine Negative (Negative); Cast Urine Automated 0 /lpf (0-5); Color Urine Yellow; Glucose Urine UA Negative (Negative); Ketones Urine Negative (Negative); Leukocyte Esterase Urine 1+ (Negative); Nitrite Urine Negative (Negative); Protein Urine Negative (Negative); RBC Urine Automated 0-4 /hpf (0-4); Specific Gravity Urine 1.007 (1.000-1.030); Urobilinogen Urine Negative (Negative); pH Urine 5.5 (4.5-7.5)
[2023-03-04] MEDS ORDERED: cefTRIAXone SODIUM 2,000 MG/50 ML BAG IV STA (16:09)
--- NOTE | 2023-03-04 16:41 | History & Physical Report ---
Date of Service March 04, 2023 Assessment & Plan (1) Altered mental status: Plan: Patient is 77-year-old female with PMH HTN, CKD III, DM II, VIRGIL, depression, obesity, history of chronic headache, history of meningioma, hypothyroidism presented to ER for altered mental status today In ER vitals stable WBC: 13. UA 1+ leuk esterase, 1+ bacteria, 5-[address] head: No acute intracranial hemorrhage, no evidence of acute territorial infarction or other acute intracranial disease process. Partial visualization of anterior falx meningioma. DDX: metabolic encephalopathy secondary to UTI. R/O CVA 02/21/2023 urine culture: + E. coli. Was not treated with antibiotics Today urine culture, blood cultures pending In ER given Rocephin Continue Rocephin MRI brain pending Hold gabapentin for now 02/21/2023: CTA head and neck. Unchanged meningioma anterior falx cerebri, otherwise unremarkable CTA head and neck If MRI positive for stroke or patient without improvement consider neurology consult CBC, BMP in am (2) UTI (urinary tract infection): Plan: WBC: 13. UA 1+ leuk esterase, 1+ bacteria, 5-10 WBC 02/21/2023 urine culture: + E. coli. Was not treated with antibiotics Likely UTI Urine culture pending In ER given Rocephin Continue Rocephin (3) Hypokalemia: Plan: K: 3.1. Magnesium: 1.9 Replace potassium (4) Intermittent headache: Plan: History intermittent right frontal headaches ongoing for the past year. Follows with outpatient [facility] neurology Work-up as above (5) Meningioma: Plan: Known meningiomas. Follows with gastroenterology. 08/13/2021 CT head: 1 possibly 2 extra-axial nodules along left aspect of anterior falx, possible small meningiomas. Outpatient MRI on 11/23/2022: 2 small meningiomas along the anterior falx, not significantly changed (6) HTN (hypertension): Plan: Continue HCTZ (7) Dyslipidemia: Plan: Continue lovastatin (8) Insulin dependent type 2 diabetes mellitus: Plan: A1c: 9.1 on 02/17/2023 Continue home basal insulin NovoLog sliding scale per protocol (9) CKD (chronic kidney disease) stage 3, GFR 30-59 ml/min: Plan: Cr: 1.26. Baseline 1.2 Monitor renal functions (10) Depression: Plan: Continue citalopram, bupropion (11) Sleep apnea: Plan: CPAP at bedtime DVT Prophylaxis Lovenox SQ Full Code as per discussion with pt Follows with Dr Mcdaniels for routine care Pt was seen and care coordinated with Dr Mills. See addendum History of Present Illness Chief Complaint: AMS Primary Care Provider: Hi Mcdaniels MD Patient is 77-year-old female with PMH HTN, CKD III, DM II, VIRGIL, depression, obesity, history of chronic headache, history of meningioma, hypothyroidism presented to ER for altered mental status today. History obtained from patient, and outpatient chart review. Patient was seen at outpatient nephrology clinic today and was noted to be confused and was referred to ER. Patient states that she drove to appointment and she did have trouble navigating the parking lot and getting into the building secondary to being confused. Patient does feel that she is confused today. She reports dull right frontal RAMOS today. She also reports that she has been getting right frontal headaches intermittently for greater than one year. She has been seen by neurology outpatient. MRI 01/2022 with stable meningiomas. She is on gabapentin for neck pain and gabapentin was increased to 200 mg twice daily. It was recommended patient have repeat MRI in 1 year for follow-up. Seen in ER on 02/21/2023. At that time was referred by eye doctor for concern for memory troubles and possible stroke. At that time had CTA head and neck that showed no acute intracranial abnormality and showed an unchanged meningioma of anterior falx cerebri. UA at the time looked like possible contamination. Urine culture from 02/21/23 +e. coli. At time patient had not reported any urinary symptoms so was not treated for UTI. Denies fever/chills, diaphoresis, N/V/D/C, dizziness, syncope, vision changes, neck pain, CP, SOB, orthopnea, palpitations, cough, sore throat, choking, otalgia, rhinorrhea, abdominal pain, paresthesias, weakness, extremity weakness, increased extremity edema, rashes, dysuria, hematuria, urinary urgency, flank pain. 08/13/2021 CT head: 1 possibly 2 extra-axial nodules along left aspect of anterior falx, possible small meningiomas. 11/23/2022 MRI: 2 small meningiomas along the anterior falx, not significantly changed. Allergies Allergy/AdvReac Type Severity Reaction Status Date / Time atorvastatin [From Lipitor] AdvReac Mild Bad dreams Verified 11/06/21 06:46 nitrofurantoin AdvReac Mild GI Upset Verified 11/06/21 06:46 adhesive AdvReac Unknown Skin Verified 11/06/21 06:46 irritations Home Medications Medication Instructions Recorded Confirmed Type albuterol sulfate 90 mcg/actuation 2 puff inhalation Q4 PRN Shortness 10/27/18 03/04/23 History aerosol inhaler (Ventolin HFA) Of Breath citalopram 40 mg tablet 40 mg PO QAM 10/27/18 03/04/23 History fluticasone propionate 50 2 spray intranasal DAILY PRN 10/27/18 03/04/23 History mcg/actuation nasal Allergy Symptoms spray,suspension (Flonase Allergy Relief) hydrochlorothiazide 25 mg tablet 25 mg PO QAM 10/27/18 03/04/23 History insulin glargine 100 unit/mL 30 unit subcut HS 10/27/18 03/04/23 History subcutaneous solution (Lantus U-100 Insulin) insulin glulisine U-100 100 1 sliding scale dose subcut 10/27/18 03/04/23 History unit/mL subcutaneous solution USEASDIRECTD PRN Hyperglycemia (Apidra U-100 Insulin) lovastatin 40 mg tablet 40 mg PO HS 10/27/18 03/04/23 History multivitamin 1 tab PO Q OTHER DAY 10/27/18 03/04/23 History levothyroxine 100 mcg tablet 100 mcg PO QAM 03/04/21 03/04/23 History meloxicam 15 mg tablet 15 mg PO DAILY PRN Pain 08/13/21 03/04/23 History Ravinder Thuane #1 ea 03/04/22 03/04/23 Rx acetaminophen 500 mg capsule 1,000 mg PO TID PRN Headache 02/21/23 03/04/23 History bupropion HCl 150 mg 24 hr tablet, 150 mg PO QAM 02/21/23 03/04/23 History extended release gabapentin 100 mg capsule 200 mg PO BID 02/21/23 03/04/23 History Past Med/Surg History Medical History Abnormal urinalysis Asthma allergy induced Brain lesion Likely 2 meningiomas per 10/01/21 brain MRI > referred to neurosurgery by PCP (appt scheduled 10/17; [facility]) Depression Diabetes mellitus, type 2 IDDM DVT prophylaxis Encounter for pre-operative examination Hyperlipidemia Hypertension Hypokalemia Hypothyroidism Insulin dependent type 2 diabetes mellitus Left rotator cuff tear Meningioma Morbid obesity Osteoarthritis Right knee DJD Sleep apnea CPAP (compliant) Surgical History History of anesthesia reaction Slow to wake History of bilateral cataract extraction History of bilateral tubal ligation History of carpal tunnel release Right (07/2019) History of colonoscopy History of dilatation and curettage History of lumbar discectomy History of tonsillectomy and adenoidectomy History of tooth extraction History of wisdom tooth extraction Status post left knee replacement Status post total left knee replacement Family History Father Family history of reaction to anesthesia little slow to wake up Family history of diabetes mellitus Family hx colonic polyps Social History Smoking Status: Never smoker Second Hand Exposure: No; Do You Dip or Chew Tobacco: No; Hx Alcohol Use: No Hx Substance Use: No Preferred Language: Tuvaluan Communication Ability: Effective Electronics Inspector Required: No Beliefs That Will Affect Care: None marital status: / Current Living Situation: Alone Other Information That Helps Us Care for You: No Feels Safe at Home: Yes Safety Concerns: Feels Safe At This Time Assistive Devices: Cane, CPAP and Glasses Review of Systems Review of Systems: All systems reviewed & are unremarkable except as noted in HPI & below Physical Exam Physical Exam: General: no distress, obese Head: normocephalic, atraumatic Eyes: PERRL, EOM's intact, conjunctiva non-injected, anicteric ENT: normal inspection external ears, nose, mucous membranes moist; no temporal region tenderness Neck: supple, trachea midline Lungs: clear, no respiratory distress, no wheezing/rhonchi/rales CV: RRR, no murmur Abd: normal BS, soft, non-tender Ext: no cyanosis, no erythema, no calf tenderness, +edema bilateral lower extremities Neuro: Alert, oriented to person, says in [facility], knows day is but thinks its Re of "two thousand and something". Says president is libertarian then later says President Leandra, Does repeat self several times during exam. no focal deficits noted, normal affect Skin: warm, dry Results & Data Results & Data Vital Signs (Past 12 Hours) Vital Signs Temp Pulse Pulse Resp BP BP Pulse Ox 03/04/23 15:17 93 H 18 121/77 99 03/04/23 13:09 36.5 C 89 20 159/81 H 100 O2 Del Method 03/04/23 15:17 Room Air 03/04/23 13:09 Room Air Laboratory Results Short CBC 03/04/23 Range/Units 14:28 WBC 13.24 H (4.8-10.8) K/ul Hgb 12.8 (12.0-16.0) g/dl Hct 39.3 (37.0-47.0) % Plt Count 281 (130-400) K/uL BMP 03/04/23 14:28 Sodium 138 Potassium 3.1 L Chloride 99 Carbon Dioxide 30 BUN 30 H Creatinine 1.26 H Glucose 159 H Calcium 9.7 Liver Function 03/04/23 Range/Units 14:28 Total Bilirubin 0.8 (0.2-1.0) mg/dl AST 14 (13-39) U/L ALT 15 (7-52) U/L Alkaline Phosphatase 43 (34-104) U/L Albumin 4.2 (3.4-5.0) gm/dl Urine 03/04/23 Range/Units 15:24 Urine Color Yellow Urine Appearance Clear (Clear) Urine pH 5.5 (4.5-7.5) Ur Specific [place] 1.007 (1.000-1.030) Urine Protein Negative (Negative) Urine Glucose (UA) Negative (Negative) Diagnostic Findings Head CT 03/04/23 13:16 CT head/brain wo con CLINICAL HISTORY: Confusion, headache Technique: Contiguous axial CT images of the head were acquired from the base of the skull to the vertex without intravenous contrast administration. Images were viewed in brain, subdural and bone windows. Automated dose lowering techniques and/or adjustment according to patient size were utilized for this exam. Comparison: Comparison is made to CTA head 02/21/2023 Findings: Areas of decreased attenuation are present in the periventricular and subcortical white matter bilaterally consistent with small vessel ischemic disease. Generalized cerebral atrophy with commensurate enlargement of the ventricles, sulci, and cisterns is also present. There is no acute intracranial hemorrhage or evidence of acute territorial infarction. No shift of the midline structures, mass effect, or extra-axial abnormalities are shown. Ather osclerotic calcifications are present in the intracranial segments of the internal carotid arteries. Partial visualization of an 11 mm meningioma of the anterior falx. Imaged portions of the paranasal sinuses and mastoid air cells are clear. The orbits appear normal. There are no acute fractures of the calvaria or scalp swelling. Impression: 1. No acute intracranial hemorrhage, no evidence of acute territorial infarction or other acute intracranial disease process. 2. Partial visualization of anterior falx meningioma. ACT 112: Negative or not required by law. Electronically signed by: Tyrell Mcleod M.D. 03/04/2023 3:09 PM ECG Additional Comments: Sinus rhythm, rate 64. No significant ST changes noted per my interpretation Supervising Physician Co-Signing Physician Notes Patient is a 77-year-old female with past medical history of hypertension, type 2 diabetes mellitus, hyperlipidemia, hypothyroidism was referred by project manager entertainment and media for concern of altered mental status. Patient seen and examined at bedside. Patient reports that she has been having word finding difficulties and short- term memory issues. She also reports headache; no vision changes. She denies any weakness/numbness of any body part. She denies fever, chills, chest pain, shortness of breath, abdominal pain or urinary symptoms. Patient was also sent to the ED on February 21 for concern of stroke by aerial crop duster. Discharged from the ED. On examination; Alert, awake, oriented to self, required reorientation regarding the date and place. Chestbilateral vesicular breath sound Abdomensoft, nontender Neuro PERRLA, EOMI intact Sensation and strength intact Short-term memory deficits present Assessment/plan Altered mental status Possible UTI Rule out stroke Leukocytosis present, urinalysis to infection We will start on antibiotics with ceftriaxone Obtain MRI brain without contrast to rule out stroke We will follow-up on results Obtain vitamin B12 level, TSH Continue home medications. Discussed with patient's son Manav over the phone. Answered questions/queries. Please note the above document was generated using voice recognition software. It may contain grammatical, syntax or spelling errors. Any formal questions or concerns about the content, text or information contained within the body of this dictation should be directly addressed to the provider for clarification
[2023-03-04] MEDS ORDERED: POTASSIUM CHLORIDE CRTAB 20 MEQ TABCR PO STA (17:13)
--- NOTE | 2023-03-04 17:38 | Communication Note ---
Date of Service: March 04, 2023 Patient is a 77-year-old female with past medical history of hypertension, type 2 diabetes mellitus, hyperlipidemia, hypothyroidism was referred by log skidder for concern of altered mental status. Patient seen and examined at bedside. Patient reports that she has been having word finding difficulties and short- term memory issues. She also reports headache; no vision changes. She denies any weakness/numbness of any body part. She denies fever, chills, chest pain, shortness of breath, abdominal pain or urinary symptoms. Patient was also sent to the ED on February 21 for concern of stroke by dcs engineer. Discharged from the ED. On examination; Alert, awake, oriented to self, required reorientation regarding the date and place. Chestbilateral vesicular breath sound Abdomensoft, nontender Neuro PERRLA, EOMI intact Sensation and strength intact Short-term memory deficits present Assessment/plan Altered mental status Possible UTI Rule out stroke Leukocytosis present, urinalysis to infection We will start on antibiotics with ceftriaxone Obtain MRI brain without contrast to rule out stroke We will follow-up on results Obtain vitamin B12 level, TSH Continue home medications. Discussed with patient's son Manav over the phone. Answered questions/queries. Please note the above document was generated using voice recognition software. It may contain grammatical, syntax or spelling errors. Any formal questions or concerns about the content, text or information contained within the body of this dictation should be directly addressed to the provider for clarification
--- NOTE | 2023-03-04 17:53 | Electrocardiogram Report ---
Test Reason : Blood Pressure : / mmHG Vent. Rate : 064 BPM Atrial Rate : 064 BPM P-R Int : 150 ms QRS Dur : 090 ms QT Int : 466 ms P-R-T Axes : 041 -09 067 degrees QTc Int : 480 ms Normal sinus rhythm Normal ECG When compared with ECG of 21-FEB-2023 10:09, No significant change was found Confirmed by Hi Li ([id number]) on 03/04/2023 5:53:04 PM Referred By: Confirmed By:Hi Li
[2023-03-04] MEDS ORDERED: ACETAMINOPHEN 1,000 MG/100 ML VIAL IV STA (18:11)
--- NOTE | 2023-03-04 19:12 | Emergency Department Note ---
History of Present Illness General Chief complaint: Headache Stated complaint: HEADACHE, MEMORY LOSS Time Seen by Provider: 03/04/23 15:51 History of Present Illness Provider complaint: Altered mental status Maximum Pain Intensity: 4 37-year-old male presents to the emergency department for altered mental status. Patient was referred here by her intelligence specialist Dr. Rock. Report is is that the patient's been having increasing confusion and headaches. Home Medications Medication Instructions Recorded Confirmed Type albuterol sulfate 90 mcg/actuation 2 puff inhalation Q4 PRN Shortness 10/27/18 03/04/23 History aerosol inhaler (Ventolin HFA) Of Breath citalopram 40 mg tablet 40 mg PO QAM 10/27/18 03/04/23 History fluticasone propionate 50 2 spray intranasal DAILY PRN 10/27/18 03/04/23 History mcg/actuation nasal Allergy Symptoms spray,suspension (Flonase Allergy Relief) hydrochlorothiazide 25 mg tablet 25 mg PO QAM 10/27/18 03/04/23 History insulin glargine 100 unit/mL 30 unit subcut HS 10/27/18 03/04/23 History subcutaneous solution (Lantus U-100 Insulin) insulin glulisine U-100 100 1 sliding scale dose subcut 10/27/18 03/04/23 History unit/mL subcutaneous solution USEASDIRECTD PRN Hyperglycemia (Apidra U-100 Insulin) lovastatin 40 mg tablet 40 mg PO HS 10/27/18 03/04/23 History multivitamin 1 tab PO Q OTHER DAY 10/27/18 03/04/23 History levothyroxine 100 mcg tablet 100 mcg PO QAM 03/04/21 03/04/23 History meloxicam 15 mg tablet 15 mg PO DAILY PRN Pain 08/13/21 03/04/23 History Ravinder Thuane #1 ea 03/04/22 03/04/23 Rx acetaminophen 500 mg capsule 1,000 mg PO TID PRN Headache 02/21/23 03/04/23 History bupropion HCl 150 mg 24 hr tablet, 150 mg PO QAM 02/21/23 03/04/23 History extended release gabapentin 100 mg capsule 200 mg PO BID 02/21/23 03/04/23 History Allergies Allergy/AdvReac Type Severity Reaction Status Date / Time atorvastatin [From Lipitor] AdvReac Mild Bad dreams Verified 11/06/21 06:46 nitrofurantoin AdvReac Mild GI Upset Verified 11/06/21 06:46 adhesive AdvReac Unknown Skin Verified 11/06/21 06:46 irritations Past Med/Surg History Medical History Abnormal urinalysis Asthma allergy induced Brain lesion Likely 2 meningiomas per 10/01/21 brain MRI > referred to neurosurgery by PCP (appt scheduled 10/17; [facility]) Depression Diabetes mellitus, type 2 IDDM DVT prophylaxis Encounter for pre-operative examination Hyperlipidemia Hypertension Hypokalemia Hypothyroidism Insulin dependent type 2 diabetes mellitus Left rotator cuff tear Meningioma Morbid obesity Osteoarthritis Right knee DJD Sleep apnea CPAP (compliant) Surgical History History of anesthesia reaction Slow to wake History of bilateral cataract extraction History of bilateral tubal ligation History of carpal tunnel release Right (07/2019) History of colonoscopy History of dilatation and curettage History of lumbar discectomy History of tonsillectomy and adenoidectomy History of tooth extraction History of wisdom tooth extraction Status post left knee replacement Status post total left knee replacement Family History Father Family history of reaction to anesthesia little slow to wake up Family history of diabetes mellitus Family hx colonic polyps Social History Smoking Status: Never smoker Second Hand Exposure: No; Do You Dip or Chew Tobacco: No; Hx Alcohol Use: No Hx Substance Use: No Preferred Language: Khmer Communication Ability: Effective 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 Railroad Required: No Beliefs That Will Affect Care: None marital status: / Current Living Situation: Alone Feels Safe at Home: Yes Assistive Devices: Walker Physical Exam Vital Signs Vital Signs - 24 hr 03/04/23 13:09 03/04/23 15:17 03/04/23 16:41 Temperature 36.5 C Temperature Source Temporal Artery Scan Pulse Rate 89 74 Pulse Rate [Finger] 93 H Respiratory Rate 20 18 Respiratory Effort / Characteristics Non-Labored Spontaneous Non-Labored Respiratory Depth Normal Normal Blood Pressure 159/81 H Blood Pressure [Left Arm] 121/77 Blood Pressure Mean 107 Blood Pressure Mean [Left Arm] 91 Pulse Oximetry 100 99 Oxygen Delivery Method Room Air Room Air Sepsis Recent Fever Within 48 Hours No Sepsis New/Unexplained Change in Mental Status No Sepsis Action Taken by Nursing No Action Required 03/04/23 17:01 03/04/23 19:00 Temperature Temperature Source Pulse Rate 66 82 Pulse Rate [Finger] Respiratory Rate 18 12 Respiratory Effort / Characteristics Respiratory Depth Blood Pressure 189/102 H 135/95 Blood Pressure [Left Arm] Blood Pressure Mean 131 108 Blood Pressure Mean [Left Arm] Pulse Oximetry 100 98 Oxygen Delivery Method Room Air Sepsis Recent Fever Within 48 Hours Sepsis New/Unexplained Change in Mental Status Sepsis Action Taken by Nursing Physical Exam HENT: Exam performed. -Head: Normocephalic and atraumatic. -Right Ear: External ear normal. No mastoid erythema -Left Ear: External ear normal. No mastoid erythema -Mouth/Throat: The oropharynx is clear and moist. No trismus in the jaw. No dental abscesses or uvula swelling. No oropharyngeal exudate or tonsillar abscesses. EYES: Conjunctivae and EOM are normal. Pupils are equal, round, and reactive to light. Right eye exhibits no discharge. Left eye exhibits no discharge. No scleral icterus. Funduscopic exam showed no AV nicking or papilledema bilaterally. NECK: Normal range of motion. Neck supple. No JVD present. No spinous process tenderness present. No rigidity. No tracheal deviation and normal range of motion present. No Brudzinski's sign and no Kernig's sign noted. CV: Normal rate, regular rhythm, normal heart sounds and intact distal pulses. There is no peripheral edema. Palpable radial pulses bue. PULM/CHEST: Effort normal and breath sounds normal. No respiratory distress. No stridor. She has no wheezes. She has no rales. MUSC/SKEL: Normal range of motion. There is no peripheral edema, tenderness or deformity. NEURO: She is alert not oriented to person or time, patient is oriented to place. She has normal strength. No cranial nerve deficit or sensory deficit. Coordination and gait normal. GCS eye subscore is 4. GCS verbal subscore is 5. GCS motor subscore is 6. Cerebellar tests wnl. No clonus. SKIN: Skin is warm and dry. She is not diaphoretic. PSYCH: She has a normal mood and affect. Behavior is normal. Judgment and thought content normal. Course Course 1551: The patient was evaluated in room C5. A complete history and physical exam was performed Administered Medications Discontinued Medications Ceftriaxone Sodium (Rocephin) 2,000 mg in 50 mls @ 100 mls/hr IV NOW STA Stop: 03/04/23 16:38 Last Infusion: 03/04/23 17:10 Dose: 0 mls/hr Documented By: Admin: 03/04/23 16:23 Dose: 100 mls/hr Documented By: NEGIN Acetaminophen (Ofirmev) 1,000 mg in 100 mls @ 400 mls/hr IV NOW STA Stop: 03/04/23 18:25 Last Infusion: 03/04/23 19:00 Dose: 0 mls/hr Documented By: Admin: 03/04/23 18:36 Dose: 400 mls/hr Documented By: NEGIN Potassium Chloride (Potassium Chloride Crtab 20 Meq Tabcr) 40 meq PO NOW STA Stop: 03/04/23 17:14 Last Admin: 03/04/23 17:25 Dose: 40 meq Documented By: NEGIN Medical Decision Making Laboratory Data Attestation: I reviewed the patient's lab results. 03/04/23 14:28 03/04/23 14:28 Lab Results 03/04/23 03/04/23 03/04/23 Range/Units 14:28 14:28 15:24 WBC 13.24 H (4.8-10.8) K/ul RBC 4.75 (4.20-5.40) M/uL Hgb 12.8 (12.0-16.0) g/dl Hct 39.3 (37.0-47.0) % MCV 82.7 (80.0-100.0) fL MCH 26.9 (25.0-34.0) pg MCHC 32.6 (32.0-36.0) g/dL RDW Std Deviation 41.6 (36.4-46.3) fL RDW Coeff of Jackie 13.9 (11.5-14.5) % Plt Count 281 (130-400) K/uL MPV 9.8 (9.4-12.4) fL Immature Gran % (Auto) 0.5 % Neut % (Auto) 74.0 % Lymph % (Auto) 17.1 % [place] % (Auto) 7.1 % Eos % (Auto) 0.9 % Baso % (Auto) 0.4 % Neut # (Auto) 9.80 H (1.40-6.50) K/uL Lymph # (Auto) 2.27 (1.20-3.40) K/uL [place] # (Auto) 0.94 H (0.11-0.59) K/uL Eos # (Auto) 0.12 (0.00-0.50) K/uL Baso # (Auto) 0.05 (0.00-0.20) K/uL Immature Gran # (Auto) 0.06 (0.01-0.20) K/uL Sodium 138 (136-145) mmol/L Potassium 3.1 L (3.5-5.1) mmol/L Chloride 99 (98-107) mmol/L Carbon Dioxide 30 (21-32) mmol/L Anion Gap 9 (3-11) BUN 30 H (6-23) mg/dl Creatinine 1.26 H (0.6-1.2) mg/dl Est Cr Clr Drug Dosing 43.3 ml/min Est GFR ( Amer) 47.9 ml/min Est GFR (Non-Af Amer) 41.4 ml/min BUN/Creatinine Ratio 23.8 H (10-20) Glucose 159 H (70-99(Fasting)) mg/dl Calcium 9.7 (8.6-10.3) mg/dl Magnesium 1.9 (1.7-2.4) mg/dl Total Bilirubin 0.8 (0.2-1.0) mg/dl AST 14 (13-39) U/L ALT 15 (7-52) U/L Alkaline Phosphatase 43 (34-104) U/L Total Protein 7.2 (6.0-8.3) gm/dl Albumin 4.2 (3.4-5.0) gm/dl Globulin 3.0 (2.5-4.0) gm/dl Albumin/Globulin Ratio 1.4 (0.9-2) Urine Color Yellow Urine Appearance Clear (Clear) Urine pH 5.5 (4.5-7.5) Ur Specific [place] 1.007 (1.000-1.030) Urine Protein Negative (Negative) Urine Glucose (UA) Negative (Negative) Urine Ketones Negative (Negative) Urine Blood Negative (Negative) Urine Nitrite Negative (Negative) Urine Bilirubin Negative (Negative) Urine Urobilinogen Negative (Negative) Ur Leukocyte Esterase 1+ H (Negative) Urine WBC (Auto) 5-10 H (0-5) /hpf Urine RBC (Auto) 0-4 (0-4) /hpf U Hyaline Cast (Auto) 0 (0-5) /lpf U Epithel Cells (Auto) 5-10 H (0-5) /lpf Urine Bacteria (Auto) 1+ H (Negative) Imaging Data Attestation: I personally reviewed and interpreted this imaging study as follows: My Impression: CT head: No ICH Radiologist's Impression: Head CT 03/04/23 13:16 CT head/brain wo con CLINICAL HISTORY: Confusion, headache Technique: Contiguous axial CT images of the head were acquired from the base of the skull to the vertex without intravenous contrast administration. Images were viewed in brain, subdural and bone windows. Automated dose lowering techniques and/or adjustment according to patient size were utilized for this exam. Comparison: Comparison is made to CTA head 02/21/2023 Findings: Areas of decreased attenuation are present in the periventricular and subcortical white matter bilaterally consistent with small vessel ischemic disease. Generalized cerebral atrophy with commensurate enlargement of the ventricles, sulci, and cisterns is also present. There is no acute intracranial hemorrhage or evidence of acute territorial infarction. No shift of the midline structures, mass effect, or extra-axial abnormalities are shown. Atherosclerotic calcifications are present in the intracranial segments of the internal carotid arteries. Partial visualization of an 11 mm meningioma of the anterior falx. Imaged portions of the paranasal sinuses and mastoid air cells are clear. The orbits appear normal. There are no acute fractures of the calvaria or scalp s welling. Impression: 1. No acute intracranial hemorrhage, no evidence of acute territorial infarction or other acute intracranial disease process. 2. Partial visualization of anterior falx meningioma. ACT 112: Negative or not required by law. Electronically signed by: Tyrell Mcleod M.D. 03/04/2023 3:09 PM ECG Data Attestation: I personally reviewed and interpreted this ECG as follows: Additional Comments: Sinus rhythm with a rate of 64. FL QRS and QTc intervals are within normal limits. No ST elevation or ST depression. MDM Narrative Cardiac monitoring: An order was placed for continuous cardiac monitoring. The monitor shows a rate of 80 with sinus rhythm interpreted by me Patient was seen during a time of extreme volume and extreme acuity. Nursing t miryamge protocols were initiated labs and imaging was conducted by protocol in the triage area. CT of the head within normal limits. White blood cell count 13.24. Potassium 3.1. Creatinine 1.26. Urinalysis does appear to have a slight urinary tract infection. Patient is not oriented patient will be treated with Rocephin and admitted to the [facility] hospitalist team Dr. Avery Hernandez was made aware Impression & Plan Acute UTI, Altered mental status Discharge Plan Visit Data Chief Complaint: Headache Stated Complaint: HEADACHE, MEMORY LOSS ED Provider: John Soler Discharge Problem: Acute UTI, Altered mental status Patient Disposition: Being Evaluated by Hospitalist Forms Stand Alone Forms: [employer] Prescriptions Prescriptions: No Action (DME) [facility] Instructions .MEDSUPPLY Qty: 1 0RF Rx Instructions: As directed multivitamin Tablet 1 tab PO Q OTHER DAY insulin glargine [Lantus U-100 Insulin] 100 unit/mL Solution 30 unit SUBCUT HS citalopram 40 mg Tablet 40 mg PO QAM lovastatin 40 mg Tablet 40 mg PO HS hydrochlorothiazide 25 mg Tablet 25 mg PO QAM albuterol sulfate [Ventolin HFA] 90 mcg/actuation Hfa Aerosol Inhaler 2 puff INHALATION Q4 PRN (Reason: Shortness Of Breath) fluticasone propionate [Flonase Allergy Relief] 50 mcg/actuation [place],Suspension 2 spray INTRANASAL DAILY PRN (Reason: Allergy Symptoms) Apidra U-100 Insulin 100 unit/mL Solution 1 sliding scale dose SUBCUT USEASDIRECTD PRN (Reason: Hyperglycemia) Rx Instructions: SLIDING SCALE meloxicam 15 mg tablet 15 mg PO DAILY PRN (Reason: Pain) levothyroxine 100 mcg Tablet 100 mcg PO QAM Rx Instructions: Take at least 30 min before breakfast or other medication gabapentin 100 mg capsule 200 mg PO BID bupropion HCl 150 mg tablet extended release 24 hr 150 mg PO QAM acetaminophen 500 mg capsule 1,000 mg PO TID PRN (Reason: Headache) Rx Instructions: Take 3 times per day to lessen pain. Referrals Referrals: Hi Mcdaniels MD [Primary Care Provider] -
[2023-03-04] MEDS ORDERED: PHARMACIST DISCHARGE MED REC CONSULT PRN (20:28)
[2023-03-04] MEDS ORDERED: GLUCAGON FOR INJ 1 MG VIAL SQ PRN (20:28)
[2023-03-04] MEDS ORDERED: ONDANSETRON INJ 2 MG/ML 2 ML VIAL IV PRN (20:28)
[2023-03-04] MEDS ORDERED: GLUCOSE 40% GEL 15 GM TUBE PO PRN (20:28)
[2023-03-04] MEDS ORDERED: DEXTROSE 50% 50 ML SYRINGE IV PRN (20:28)
[2023-03-04] MEDS ORDERED: CARBOHYDRATES FOR HYPOGLYCEMIA PO PRN (20:28)
[2023-03-04] MEDS ORDERED: POLYETHYLENE (MIRALAX) 17 GM PACK PO PRN (20:28)
[2023-03-04] MEDS ORDERED: GLUCOSE 10 TAB/TUBE PO PRN (20:28)
[2023-03-04] MEDS ORDERED: POTASSIUM CHLORIDE CRTAB 20 MEQ TABCR PO ONE (21:00)
[2023-03-04] MEDS: INSULIN ASPART PER UNIT CHARGE SC SCH (21:36)
--- NOTE | 2023-03-04 22:28 | Magnetic Resonance Report ---
MRI OF THE BRAIN WITHOUT IV CONTRAST CLINICAL HISTORY: Change in mental status. COMPARISON STUDY: CT of the brain dated 03/04/2023. TECHNIQUE: MRI of the brain was performed utilizing various T1 and T2-weighted sequences in the axial , sagittal, and coronal planes. IV contrast was not administered for this examination. FINDINGS: Brain parenchyma: There is age-related involutional change. Small left anterior parafalcine meningiom a meningiomas measuring up to 12 mm there is no associated mass effect. No hemorrhage is identified. There is no restricted diffusion typical for acute ischemia. [place]-white matter differentiation is pre served. No extra-axial fluid collection is seen. The cerebellar tonsils are normal in configuration. Ventricles, sulci, and cisterns: Prominent secondary to involutional change. Pituitary and sella: Unremarkable. Intracranial vasculature: Normal flow voids are maintained at the skull base. Orbits: The bony orbits are grossly intact. Orbital contents are normal in appearance noting bilatera l ocular lens implants. Sinuses and mastoids: Clear. Calvarium: Unremarkable. Cervical cord: Partially visualized cervical spinal cord is normal in morphology and signal intensity . IMPRESSION: No acute intracranial abnormality. ACT 112: Negative or not required by law. Electronically signed by: Brayan Sosa M.D. 03/04/2023 10:26 PM
[2023-03-04] MEDS: LANTUS PER UNIT CHARGE SQ SCH (23:51)
[2023-03-04] MEDS: LOVASTATIN 20 MG TAB PO SCH (23:56)
[2023-03-04] MEDS: ENOXAPARIN INJ 40 MG/0.4 ML SYR SQ SCH (23:56)
[2023-03-05] MEDS: LEVOTHYROXINE SODIUM 100 MCG TABLET PO SCH (06:26)
[2023-03-05 07:28] LABS: Basophils # (auto) 0.04 K/uL (0.00-0.20); Basophils % (auto) 0.4 %; Eosinophils # (auto) 0.13 K/uL (0.00-0.50); Eosinophils % (auto) 1.4 %; Hematocrit (blood only) 35.6 % (37.0-47.0); Hemoglobin 11.8 g/dl (12.0-16.0); Immature Granulocytes # (auto) 0.03 K/uL (0.01-0.20); Immature Granulocytes % (auto) 0.3 %; Lymphocytes # (auto) 2.24 K/uL (1.20-3.40); Lymphocytes % (auto) 23.6 %; Mean Corpuscular Hemoglobin 27.6 pg (25.0-34.0); Mean Corpuscular Hgb Conc 33.1 g/dL (32.0-36.0); Mean Corpuscular Volume 83.2 fL (80.0-100.0); Mean Platelet Volume 10.2 fL (9.4-12.4); Monocytes # (auto) 0.77 K/uL (0.11-0.59); Monocytes % (auto) 8.1 %; Neutrophils # (auto) 6.27 K/uL (1.40-6.50); Neutrophils % (auto) 66.2 %; Platelet Count 233 K/uL (130-400); RDW Coefficient of Variation 14.1 % (11.5-14.5); RDW Standard Deviation 42.4 fL (36.4-46.3); Red Blood Count 4.28 M/uL (4.20-5.40); White Blood Count 9.48 K/ul (4.8-10.8)
[2023-03-05 07:42] LABS: Chol HDL Ratio 2.4 (0-5); Creatinine Clr Calc Pharmacy 40.8 ml/min; Est GFR (African American) 49.3 ml/min; Est GFR (Non-African American) 42.6 ml/min; Potassium 3.5 mmol/L (3.5-5.1)
[2023-03-05] MEDS: CITALOPRAM 40 MG TAB PO SCH (08:47)
[2023-03-05] MEDS: buPROPion XL 150 MG TABCR PO SCH (08:47)
[2023-03-05] MEDS: hydroCHLOROthiazide 25 MG TAB PO SCH (08:47)
[2023-03-05] MEDS: ACETAMINOPHEN 325 MG TAB PO PRN ×3 (08:51→22:37)
[2023-03-05] MEDS: INSULIN ASPART PER UNIT CHARGE SC SCH ×4 (08:52→20:16)
[2023-03-05] MEDS: LANTUS PER UNIT CHARGE SQ SCH ×2 (08:52→20:17)
--- NOTE | 2023-03-05 11:23 | Hospitalist Progress Note ---
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 Patient reports that she has been having word finding difficulties and short- term memory issues Possible metabolic encephalopathy Leukocytosis present on admission. Urine culture suggestive of infection CT head without contrast did not show any acute finding; history of meningioma; unchanged. MRI brain without contrast did not show any acute finding. Urine culture positive for gram-negative bacilli Blood culture pending Vitamin B12 within normal limits Continue IV antibiotics for now; await final culture and sensitivity. Plan to treat for 5 days if blood culture is negative. Speech consulted for cognition evaluation. PT OT evaluation (3) Hypokalemia: Plan: Repleted (4) Intermittent headache: Plan: History intermittent right frontal headaches ongoing for the past year. Follows with outpatient [facility] neurology (5) Meningioma: Plan: Known meningiomas. Follows with gastroenterology. 08/13/2021 CT head: 1 possibly 2 extra-axial nodules along left aspect of anterior falx, possible small meningiomas. Outpatient MRI on 11/23/2022: 2 small meningiomas along the anterior falx, not significantly changed MRI Brain wo contrast-no acute findings. (6) HTN (hypertension): Plan: Continue HCTZ (7) Dyslipidemia: Plan: Continue lovastatin (8) Insulin dependent type 2 diabetes mellitus: Plan: A1c: 9.1 on 02/17/2023 Continue home basal insulin NovoLog sliding scale per protocol (9) CKD (chronic kidney disease) stage 3, GFR 30-59 ml/min: Plan: Cr: 1.26. Baseline 1.2 Monitor renal functions (10) Depression: Plan: Continue citalopram, bupropion (11) Sleep apnea: Plan: CPAP at bedtime DVT Prophylaxis Lovenox SQ Updated her son Manav over the phone. Answered questions/queries. He is agreeable with the plan. Please note the above document was generated using voice recognition software. It may contain grammatical, syntax or spelling errors. Any formal questions or concerns about the content, text or information contained within the body of this dictation should be directly addressed to the provider for clarification Admission and Anticipated Discharge Date Admission Date: March 04, 2023 Subjective Patient seen and examined at bedside. She reports that she is feeling much better compared to yesterday. She is no longer complaints of headache. No overnight events otherwise Review of Systems Review of Systems: All systems reviewed & are unremarkable except as noted in Subjective Physical Exam Physical Exam: General: no distress, obese Head: normocephalic, atraumatic Eyes: PERRL, EOM's intact, conjunctiva non-injected, anicteric ENT: normal inspection external ears, nose, mucous membranes moist; no temporal region tenderness Neck: supple, trachea midline Lungs: clear, no respiratory distress, no wheezing/rhonchi/rales CV: RRR, no murmur Abd: normal BS, soft, non-tender Ext: no cyanosis, no erythema, no calf tenderness, +edema bilateral lower extremities Neuro: Alert oriented x3; has some word finding difficulties. No other focal deficit. Skin: warm, dry Results & Data Results & Data Vital Signs (Past 12 Hours) Vital Signs Temp Pulse Resp BP BP Pulse Ox O2 Del Method 03/05/23 07:56 37.1 C 69 18 148/82 H 96 Room Air 03/05/23 03:28 36.7 C 71 18 144/84 H 97 Room Air
[2023-03-05] MEDS: cefTRIAXone SODIUM 2,000 MG in DEXTROSE 5 % MINI-B 50 ML IV SCH (17:41)
[2023-03-05] MEDS: LOVASTATIN 20 MG TAB PO SCH (20:16)
[2023-03-05] MEDS: ENOXAPARIN INJ 40 MG/0.4 ML SYR SQ SCH (20:17)
[2023-03-06] MEDS ORDERED: MELATONIN 3 MG TAB PO PRN (00:04)
[2023-03-06] MEDS: LEVOTHYROXINE SODIUM 100 MCG TABLET PO SCH (06:15)
[2023-03-06 08:25] LABS: Basophils # (auto) 0.05 K/uL (0.00-0.20); Basophils % (auto) 0.7 %; Eosinophils % (auto) 1.3 %; Hematocrit (blood only) 34.4 % (37.0-47.0); Hemoglobin 11.1 g/dl (12.0-16.0); Immature Granulocytes # (auto) 0.03 K/uL (0.01-0.20); Immature Granulocytes % (auto) 0.4 %; Lymphocytes # (auto) 1.99 K/uL (1.20-3.40); Lymphocytes % (auto) 26.2 %; Mean Corpuscular Hgb Conc 32.3 g/dL (32.0-36.0); Mean Corpuscular Volume 83.7 fL (80.0-100.0); Mean Platelet Volume 10.3 fL (9.4-12.4); Monocytes # (auto) 0.67 K/uL (0.11-0.59); Monocytes % (auto) 8.8 %; Neutrophils # (auto) 4.75 K/uL (1.40-6.50); Neutrophils % (auto) 62.6 %; Platelet Count 227 K/uL (130-400); RDW Coefficient of Variation 13.9 % (11.5-14.5); RDW Standard Deviation 42.5 fL (36.4-46.3); Red Blood Count 4.11 M/uL (4.20-5.40); White Blood Count 7.59 K/ul (4.8-10.8)
[2023-03-06] MEDS: LANTUS PER UNIT CHARGE SQ SCH ×2 (08:28→20:29)
[2023-03-06] MEDS: buPROPion XL 150 MG TABCR PO SCH (08:31)
[2023-03-06] MEDS: hydroCHLOROthiazide 25 MG TAB PO SCH (08:31)
[2023-03-06] MEDS: CITALOPRAM 40 MG TAB PO SCH (08:31)
[2023-03-06 08:36] LABS: BUN Creatinine Ratio 17.9 (10-20); Creatinine Clr Calc Pharmacy 35.9 ml/min; Est GFR (African American) 42.2 ml/min; Est GFR (Non-African American) 36.4 ml/min; Potassium 3.3 mmol/L (3.5-5.1)
[2023-03-06] MEDS: INSULIN ASPART PER UNIT CHARGE SC SCH ×4 (09:42→20:25)
--- NOTE | 2023-03-06 10:15 | Neurology Consultation ---
Date of Consultation March 06, 2023 Assessment & Plan (1) Altered mental status: Plan 77 y/o female with history of HTN, CKD, VIRGIL, and DM that presented with concern for cognitive impairment. Her examination does reveal some difficulty with short term recall and calculation but was otherwise unremarkable. As the pt denies any difficulties prior to this week, it is unclear what the chronicity of these changes have been. We have discussed how infections such as UTIs can affect men siva status. Additionally, her difficulty with hearing may be impacting what has been been previously observed. She has continued to live independently without difficulty. Pt would likely benefit from neuropsychology testing as an outpatient as well as close follow-up with neurology. 1. TSH, ESR, NIEVES 2. EEG 3. Outpatient neurology follow-up 4. Opthalmology follow-up Telehealth Consultation Telehealth Information Telehealth Information: I performed this visit using a real-time telehealth connection between my location and the patients location ([facility]). After connecting through interactive tele-video, patient was identified by name and date of and/or wristband check.Patient (or authorized healthcare client relations representative) was informed that this was a telemedicine visit and it was being conducted confidentially over secure lines. My office door was closed and no one else was present in the room with me.Patient (or authorized healthcare client relations representative) provided consent to proceed with the visit, expressed an understanding of privacy and security of the telemedicine visit, and gave permission to have a hospital client relations representative in the room in order to assist with the visit and to conduct portions of the visit, as needed. I informed the patient (or authorized healthcare client relations representative) that I reviewed their record and presented the opportunity for them to ask any questions regarding the visit today. The patient agreed to participate. History of Present Illness Reason for Consultation: cognitive impairment, AMS Requesting Physician: Dr. David Mills Attending Physician: Case Laird MD History of Present Illness 77 y/o female with history of HTN, DM, CKD, and VIRGIL that presented to the ED after being sent by her gusset folder due to concern that she seemed to be confused and not behaving normally. Of note, she presented to the on 02/21 after her opthalmologist reportedly expressed concern regarding the pt's cognition. She is being treated for a suspected UTI. She states that on Friday morning she was at her [facility] folder and she didn't like the way she was answering the questions and recommended she come to the ED. She states that on 02/21, the eye doctor did not like the way her left eye looked and wanted it to further evaluated. She had not noticed any changes in her memory or cognition until the [facility] folder mentioned. She lives alone and is independent in ADLs. She handles her own finances without difficulty. She grocery shops with a list, which she has always done, without difficulty. She states that she also drives without difficulty. She states that she has a mild dull frontal headache but denies any weakness, numbness/tingling, speech changes, vision changes, or gait imbalance. Allergies Allergy/AdvReac Type Severity Reaction Status Date / Time atorvastatin [From Lipitor] AdvReac Mild Bad dreams Verified 11/06/21 06:46 nitrofurantoin AdvReac Mild GI Upset Verified 11/06/21 06:46 adhesive AdvReac Unknown Skin Verified 11/06/21 06:46 irritations Home Medications Medication Instructions Recorded Confirmed Type albuterol sulfate 90 mcg/actuation 2 puff inhalation Q4 PRN Shortness 10/27/18 03/04/23 History aerosol inhaler (Ventolin HFA) Of Breath citalopram 40 mg tablet 40 mg PO QAM 10/27/18 03/04/23 History fluticasone propionate 50 2 spray intranasal DAILY PRN 10/27/18 03/04/23 History mcg/actuation nasal Allergy Symptoms spray,suspension (Flonase Allergy Relief) hydrochlorothiazide 25 mg tablet 25 mg PO QAM 10/27/18 03/04/23 History insulin glargine 100 unit/mL 30 unit subcut HS 10/27/18 03/04/23 History subcutaneous solution (Lantus U-100 Insulin) insulin glulisine U-100 100 1 sliding scale dose subcut 10/27/18 03/04/23 History unit/mL subcutaneous solution USEASDIRECTD PRN Hyperglycemia (Apidra U-100 Insulin) lovastatin 40 mg tablet 40 mg PO HS 10/27/18 03/04/23 History multivitamin 1 tab PO Q OTHER DAY 10/27/18 03/04/23 History levothyroxine 100 mcg tablet 100 mcg PO QAM 03/04/21 03/04/23 History meloxicam 15 mg tablet 15 mg PO DAILY PRN Pain 08/13/21 03/04/23 History Ravinder Fierro #1 ea 03/04/22 03/04/23 Rx acetaminophen 500 mg capsule 1,000 mg PO TID PRN Headache 02/21/23 03/04/23 History bupropion HCl 150 mg 24 hr tablet, 150 mg PO QAM 02/21/23 03/04/23 History extended release gabapentin 100 mg capsule 200 mg PO BID 02/21/23 03/04/23 History Patient History Medical History Abnormal urinalysis Asthma allergy induced Brain lesion Likely 2 meningiomas per 10/01/21 brain MRI > referred to neurosurgery by PCP (appt scheduled 10/17; [facility]) Depression Diabetes mellitus, type 2 IDDM DVT prophylaxis Encounter for pre-operative examination Hyperlipidemia Hypertension Hypokalemia Hypothyroidism Insulin dependent type 2 diabetes mellitus Left rotator cuff tear Meningioma Morbid obesity Osteoarthritis Right knee DJD Sleep apnea CPAP (compliant) Surgical History History of anesthesia reaction Slow to wake History of bilateral cataract extraction History of bilateral tubal ligation History of carpal tunnel release Right (07/2019) History of colonoscopy History of dilatation and curettage History of lumbar discectomy History of tonsillectomy and adenoidectomy History of tooth extraction History of wisdom tooth extraction Status post left knee replacement Status post total left knee replacement Family History Father Family history of reaction to anesthesia little slow to wake up Family history of diabetes mellitus Family hx colonic polyps Social History Smoking Status: Never smoker Second Hand Exposure: No; Do You Dip or Chew Tobacco: No; Hx Alcohol Use: No Hx Substance Use: No Preferred Language: Belgian Communication Ability: Effective 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 /3 recall. Difficulty with calculation No aphasia or dysarthria VFF grossly full EOMI, no nystagmus Facial sensations intact No facial asymmetry Tongue protrudes midline Motor: Moves all four extremities antigravity Sensation: Intact to light touch throughout Cerebellar: FTN intact Results & Data Vital Signs (Past 12 Hours) Vital Signs Temp Pulse Pulse Resp BP BP Pulse Ox 03/06/23 07:51 59 L 03/06/23 07:35 36.6 C 65 16 134/75 95 03/06/23 02:54 36.5 C 60 18 111/66 97 03/05/23 22:57 37.0 C 67 18 120/72 96 O2 Del Method 03/06/23 07:51 03/06/23 07:35 Room Air 03/06/23 02:54 Room Air 03/05/23 22:57 Room Air Laboratory Results HGB 11.1, HCT 34.1, Plts 227, WBC 7.59, NA 142, BUN 25, Creatinine 1.4, Glucose 69, B12 1007, UA 1+ leukocyte esterase, WBC 10-30, negative nitrite Diagnostic Findings CTH:1. No acute intracranial hemorrhage, no evidence of acute territorial infarction or other acute intracranial disease process. 2. Partial visualization of anterior falx meningioma. MRI:No acute intracranial abnormality.
[2023-03-06] MEDS ORDERED: POTASSIUM CHLORIDE CRTAB 20 MEQ TABCR PO STA (13:31)
--- NOTE | 2023-03-06 13:43 | Hospitalist Progress Note ---
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 Patient reports that she has been having word finding difficulties and short- term memory issues Possible metabolic encephalopathy Leukocytosis present on admission. Urine culture suggestive of infection CT head without contrast did not show any acute finding; history of meningioma; unchanged. MRI brain without contrast did not show any acute finding. Urine culture positive for E. coli Blood culture -no growth 24 hours Vitamin B12 within normal limits. TSH and ESR pending. Neurology evaluated, appreciate recommendation. EEG ordered. Patient will need outpatient neurology and ophthalmology follow-up. Continue IV antibiotics for now. Plan to treat for 5 days if blood culture is negative. Speech evaluated, PT/OT evaluated. Due to acute cognitive impairment, patient would likely need 24/7 supervision at home/if not possible then will likely need snf acutely until it can be further evaled as OP. (3) Hypokalemia: Plan: Monitor replete as appropriate. (4) Intermittent headache: Plan: History intermittent right frontal headaches ongoing for the past year. Follows with outpatient [facility] neurology. Now better. (5) Meningioma: Plan: Known meningiomas. Follows with gastroenterology. 08/13/2021 CT head: 1 possibly 2 extra-axial nodules along left aspect of anterior falx, possible small meningiomas. Outpatient MRI on 11/23/2022: 2 small meningiomas along the anterior falx, not significantly changed MRI Brain wo contrast-no acute findings. (6) HTN (hypertension): Plan: Continue HCTZ (7) Dyslipidemia: Plan: Continue lovastatin (8) Insulin dependent type 2 diabetes mellitus: Plan: A1c: 9.1 on 02/17/2023 Continue home basal insulin NovoLog sliding scale per protocol (9) CKD (chronic kidney disease) stage 3, GFR 30-59 ml/min: Plan: Cr: 1.26. Baseline 1.2 Monitor renal functions (10) Depression: Plan: Continue citalopram, bupropion (11) Sleep apnea: Plan: CPAP at bedtime DVT Prophylaxis: Lovenox SQ Please note the above document was generated using voice recognition software. It may contain grammatical, syntax or spelling errors. Any formal questions or concerns about the content, text or information contained within the body of this dictation should be directly addressed to the provider for clarification Admission and Anticipated Discharge Date Admission Date: March 04, 2023 Subjective Patient seen and examined at bedside. She reports feeling better and would like to go home. She states that she has not been seen by any doctor yesterday and has not been evaluated by speech therapy yesterday. Denies headache, dizziness, chest pain no sore throat or cough. No overnight events otherwise Physical Exam Physical Exam: General: no distress, obese Head: normocephalic, atraumatic Eyes: PERRL, EOM's intact, conjunctiva non-injected, anicteric ENT: normal inspection external ears, nose, mucous membranes moist; no temporal region tenderness Neck: supple, trachea midline Lungs: clear, no respiratory distress, no wheezing/rhonchi/rales CV: RRR, no murmur Abd: normal BS, soft, non-tender Ext: no cyanosis, no erythema, no calf tenderness, +edema bilateral lower extremities Neuro: Alert oriented x3; has some word finding difficulties. No other focal deficit. Skin: warm, dry Results & Data Results & Data Vital Signs (Past 12 Hours) Vital Signs Temp Pulse Pulse Resp BP BP Pulse Ox 03/06/23 11:24 36.8 C 81 16 143/81 H 97 03/06/23 11:03 03/06/23 07:51 59 L 03/06/23 07:35 36.6 C 65 16 134/75 95 03/06/23 02:54 36.5 C 60 18 111/66 97 O2 Del Method 03/06/23 11:24 Room Air 03/06/23 11:03 Room Air 03/06/23 07:51 03/06/23 07:35 Room Air 03/06/23 02:54 Room Air
[2023-03-06] MEDS: cefTRIAXone SODIUM 2,000 MG in DEXTROSE 5 % MINI-B 50 ML IV SCH (16:27)
[2023-03-06] MEDS: LOVASTATIN 20 MG TAB PO SCH (20:29)
[2023-03-06] MEDS: ENOXAPARIN INJ 40 MG/0.4 ML SYR SQ SCH (20:29)
[2023-03-06] MEDS: ACETAMINOPHEN 325 MG TAB PO PRN (21:48)
[2023-03-07] MEDS: LEVOTHYROXINE SODIUM 100 MCG TABLET PO SCH (05:57)
[2023-03-07] MEDS: buPROPion XL 150 MG TABCR PO SCH (08:25)
[2023-03-07] MEDS: CITALOPRAM 40 MG TAB PO SCH (08:25)
[2023-03-07] MEDS: hydroCHLOROthiazide 25 MG TAB PO SCH (08:26)
[2023-03-07] MEDS: INSULIN ASPART PER UNIT CHARGE SC SCH ×4 (09:59→20:48)
[2023-03-07] MEDS: LANTUS PER UNIT CHARGE SQ SCH ×2 (10:00→21:25)
--- NOTE | 2023-03-07 15:26 | Hospitalist Progress Note ---
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 Patient reports that she has been having word finding difficulties and short- term memory issues Possible metabolic encephalopathy Leukocytosis present on admission. Urine culture suggestive of infection CT head without contrast did not show any acute finding; history of meningioma; unchanged. MRI brain without contrast did not show any acute finding. Urine culture positive for E. coli Blood culture -no growth 48 hours Vitamin B12 within normal limits. TSH wnl and ESR wnl for age Neurology evaluated, appreciate recommendation. EEG ordered, read pending. Patient will need outpatient neurology and ophthalmology follow-up. Continue IV antibiotics for now. Plan to treat for 5 days if blood culture is negative. Speech evaluated, PT/OT evaluated. Due to acute cognitive impairment, patient would likely need 24/7 supervision at home/if not possible then will likely need snf acutely until it can be further evaled as OP. No driving until cleared per neurology via OP eval. (3) Hypokalemia: Plan: Monitor replete as appropriate. (4) Intermittent headache: Plan: History intermittent right frontal headaches ongoing for the past year. Follows with outpatient [facility] neurology. Now better. (5) Meningioma: Plan: Known meningiomas. . 08/13/2021 CT head: 1 possibly 2 extra-axial nodules along left aspect of anterior falx, possible small meningiomas. Outpatient MRI on 11/23/2022: 2 small meningiomas along the anterior falx, not significantly changed MRI Brain wo contrast-no acute findings. f/u w/ own neuro as OP. (6) HTN (hypertension): Plan: Continue HCTZ (7) Dyslipidemia: Plan: Continue lovastatin (8) Insulin dependent type 2 diabetes mellitus: Plan: A1c: 9.1 on 02/17/2023 Continue home basal insulin NovoLog sliding scale per protocol (9) CKD (chronic kidney disease) stage 3, GFR 30-59 ml/min: Plan: Cr: 1.26. Baseline 1.2 Monitor renal functions (10) Depression: Plan: Continue citalopram, bupropion (11) Sleep apnea: Plan: CPAP at bedtime DVT Prophylaxis: Lovenox SQ Dispo: will need 24/7 supervision or snf for the interim until her mentation improves. Please note the above document was generated using voice recognition software. It may contain grammatical, syntax or spelling errors. Any formal questions or concerns about the content, text or information contained within the body of this dictation should be directly addressed to the provider for clarification Admission and Anticipated Discharge Date Admission Date: March 04, 2023 Subjective Patient seen and examined at bedside. Pt is forgetful and not sure if she saw me yesterday. She is upset because she is forgetting things now. Denies headache, dizziness, chest pain no sore throat or cough. No overnight events otherwise Physical Exam Physical Exam: General: no distress, obese Head: normocephalic, atraumatic Eyes: PERRL, EOM's intact, conjunctiva non-injected, anicteric ENT: normal inspection external ears, nose, mucous membranes moist; no temporal region tenderness Neck: supple, trachea midline Lungs: clear, no respiratory distress, no wheezing/rhonchi/rales CV: RRR, no murmur Abd: normal BS, soft, non-tender Ext: no cyanosis, no erythema, no calf tenderness, +trace edema bilateral lower extremities Neuro: Alert oriented x3; has some word finding difficulties. No other focal deficit. Skin: warm, dry Results & Data Results & Data Vital Signs (Past 12 Hours) Vital Signs Temp Pulse Pulse Resp BP Pulse Ox O2 Del Method 03/07/23 11:59 36.5 C 73 16 127/77 96 Nasal Cannula 03/07/23 08:07 36.7 C 75 16 149/81 H 97 Room Air 03/07/23 07:13 72 03/07/23 03:27 36.9 C 69 16 135/80 98 Room Air O2 Flow Rate 03/07/23 11:59 2 03/07/23 08:07 03/07/23 07:13 03/07/23 03:27
--- NOTE | 2023-03-07 16:22 | Electroencephalogram ---
EEG Procedure Note Date of Service March 07, 2023 Start / End Times Start Time: 8:23 AM End Time: 8:43 AM Referring Physician Eitan History Seizure-like activity Home Medication List Medication Instructions Recorded Confirmed Type albuterol sulfate 90 mcg/actuation 2 puff inhalation Q4 PRN Shortness 10/27/18 03/04/23 History aerosol inhaler (Ventolin HFA) Of Breath citalopram 40 mg tablet 40 mg PO QAM 10/27/18 03/04/23 History fluticasone propionate 50 2 spray intranasal DAILY PRN 10/27/18 03/04/23 History mcg/actuation nasal Allergy Symptoms spray,suspension (Flonase Allergy Relief) hydrochlorothiazide 25 mg tablet 25 mg PO QAM 10/27/18 03/04/23 History insulin glargine 100 unit/mL 30 unit subcut HS 10/27/18 03/04/23 History subcutaneous solution (Lantus U-100 Insulin) insulin glulisine U-100 100 1 sliding scale dose subcut 10/27/18 03/04/23 History unit/mL subcutaneous solution USEASDIRECTD PRN Hyperglycemia (Apidra U-100 Insulin) lovastatin 40 mg tablet 40 mg PO HS 10/27/18 03/04/23 History multivitamin 1 tab PO Q OTHER DAY 10/27/18 03/04/23 History levothyroxine 100 mcg tablet 100 mcg PO QAM 03/04/21 03/04/23 History meloxicam 15 mg tablet 15 mg PO DAILY PRN Pain 08/13/21 03/04/23 History Ravinder Fierro #1 ea 03/04/22 03/04/23 Rx acetaminophen 500 mg capsule 1,000 mg PO TID PRN Headache 02/21/23 03/04/23 History bupropion HCl 150 mg 24 hr tablet, 150 mg PO QAM 02/21/23 03/04/23 History extended release gabapentin 100 mg capsule 200 mg PO BID 02/21/23 03/04/23 History Inpatient Medication List Acetaminophen (Acetaminophen 325 Mg Tab) 650 mg PO Q4H PRN PRN Reason: Pain or Fever Stop: 04/03/23 20:27 Last Admin: 03/06/23 21:48 Dose: 650 mg Documented By: Admin: 03/05/23 22:37 Dose: 650 mg Documented By: Admin: 03/05/23 17:19 Dose: 650 mg Documented By: Admin: 03/05/23 08:51 Dose: 650 mg Documented By: ZIGGY Bupropion HCl (Bupropion Xl 150 Mg Tabcr) 150 mg PO [facility] Stop: 04/04/23 08:59 Last Admin: 03/07/23 08:25 Dose: 150 mg Documented By: Admin: 03/06/23 08:31 Dose: 150 mg Documented By: Admin: 03/05/23 08:47 Dose: 150 mg Documented By: ZIGGY Citalopram Hydrobromide (Citalopram 40 Mg Tab) 40 mg PO [facility] Stop: 04/04/23 08:59 Last Admin: 03/07/23 08:25 Dose: 40 mg Documented By: Admin: 03/06/23 08:31 Dose: 40 mg Documented By: Admin: 03/05/23 08:47 Dose: 40 mg Documented By: ZIGGY Enoxaparin Sodium (Enoxaparin Inj 40 Mg/0.4 Ml Syr) 40 mg SQ Q24H [facility] Stop: 04/03/23 20:59 Last Admin: 03/06/23 20:29 Dose: 40 mg Documented By: Admin: 03/05/23 20:17 Dose: 40 mg Documented By: Admin: 03/04/23 23:56 Dose: 40 mg Documented By: LIVE Hydrochlorothiazide (Hydrochlorothiazide 25 Mg Tab) 25 mg PO [facility] Stop: 04/04/23 08:59 Last Admin: 03/07/23 08:26 Dose: 25 mg Documented By: Admin: 03/06/23 08:31 Dose: 25 mg Documented By: Admin: 03/05/23 08:47 Dose: 25 mg Documented By: ZIGGY Ceftriaxone Sodium 2,000 mg/ (Dextrose) 50 mls @ 100 mls/hr IV Q24H [facility]; Protocol Stop: 03/10/23 15:59 Last Infusion: 03/06/23 17:18 Dose: 0 mls/hr Documented By: Admin: 03/06/23 16:27 Dose: 100 mls/hr Documented By: Infusion: 03/05/23 18:18 Dose: 0 mls/hr Documented By: Admin: 03/05/23 17:41 Dose: 100 mls/hr Documented By: ZIGGY Insulin Aspart (Insulin Aspart Per Unit Charge) 0 units SC ACHS [facility] Stop: 04/03/23 20:59 Last Admin: 03/07/23 13:55 Dose: 4 units Documented By: MARCO Co-signed By: NAREN Admin: 03/07/23 09:59 Dose: 2 units Documented By: MARCO Co-signed By: BINTA Admin: 03/06/23 20:25 Dose: Not Given Documented By: Admin: 03/06/23 18:32 Dose: 4 units Documented By: DORCAS Co-signed By: MARCO Admin: 03/06/23 13:37 Dose: 2 units Documented By: DORCAS Co-signed By: HENRY Admin: 03/06/23 09:42 Dose: Not Given Documented By: Admin: 03/05/23 20:16 Dose: 3 units Documented By: EVETTE Co-signed By: ERICKA Admin: 03/05/23 18:10 Dose: Not Given Documented By: Admin: 03/05/23 13:22 Dose: 5 units Documented By: ZIGGY Co-signed By: CHETAN Admin: 03/05/23 08:52 Dose: 3 units Documented By: ZIGGY Co-signed By: CHETAN Admin: 03/04/23 21:36 Dose: 3 units Documented By: NEGIN Co-signed By: DOREEN Insulin Glargine (Lantus Per Unit Charge) 15 units SQ BID [facility] Stop: 04/03/23 20:59 Last Admin: 03/07/23 10:00 Dose: 15 units Documented By: MARCO Co-signed By: BINTA Admin: 03/06/23 20:29 Dose: 15 units Documented By: LIVE Co-signed By: JOVANI Admin: 03/06/23 08:28 Dose: 15 units Documented By: DORCAS Co-signed By: HENRY Admin: 03/05/23 20:17 Dose: 15 units Documented By: EVETTE Co-signed By: ERICKA Admin: 03/05/23 08:52 Dose: 15 units Documented By: ZIGGY Co-signed By: CHETAN Admin: 03/04/23 23:51 Dose: Not Given Documented By: LIVE Levothyroxine Sodium (Levothyroxine Sodium 100 Mcg Tablet) 100 mcg PO DAILYBB [facility]YSON Stop: 04/04/23 06:29 Last Admin: 03/07/23 05:57 Dose: 100 mcg Documented By: Admin: 03/06/23 06:15 Dose: 100 mcg Documented By: Admin: 03/05/23 06:26 Dose: 100 mcg Documented By: LIVE Lovastatin (Lovastatin 20 Mg Tab) 40 mg PO HS [facility] Stop: 04/03/23 20:59 Last Admin: 03/06/23 20:29 Dose: 40 mg Documented By: Admin: 03/05/23 20:16 Dose: 40 mg Documented By: Admin: 03/04/23 23:56 Dose: 40 mg Documented By: LIVE Melatonin (Melatonin 3 Mg Tab) 3 mg PO HS PRN PRN Reason: Sleep Stop: 04/05/23 00:03 Last Admin: 03/06/23 00:11 Dose: 3 mg Documented By: EVETTE Discontinued Medications Ceftriaxone Sodium (Rocephin) 2,000 mg in 50 mls @ 100 mls/hr IV NOW STA Stop: 03/04/23 16:38 Last Infusion: 03/04/23 17:10 Dose: 0 mls/hr Documented By: Admin: 03/04/23 16:23 Dose: 100 mls/hr Documented By: NEGIN Acetaminophen (Ofirmev) 1,000 mg in 100 mls @ 400 mls/hr IV NOW STA Stop: 03/04/23 18:25 Last Infusion: 03/04/23 19:00 Dose: 0 mls/hr Documented By: Admin: 03/04/23 18:36 Dose: 400 mls/hr Documented By: NEGIN Potassium Chloride (Potassium Chloride Crtab 20 Meq Tabcr) 40 meq PO NOW STA Stop: 03/04/23 17:14 Last Admin: 03/04/23 17:25 Dose: 40 meq Documented By: NEGIN Potassium Chloride (Potassium Chloride Crtab 20 Meq Tabcr) 40 meq PO ONE ONE Stop: 03/04/23 21:01 Last Admin: 03/04/23 21:37 Dose: 40 meq Documented By: NEGIN Potassium Chloride (Potassium Chloride Crtab 20 Meq Tabcr) 40 meq PO NOW STA Stop: 03/06/23 13:32 Last Admin: 03/06/23 13:37 Dose: 40 meq Documented By: DORCAS Description This is a 21 electrode EEG with a single channel dedicated to limited EKG. The electrodes were placed in accordance with the International 10-20 system. There is a posterior dominant rhythm of 10 Hz which is symmetrically distributed and attenuates with eye opening. There is a normal anterior to posterior organization. Photic stimulation is unremarkable, hyperventilation is not performed. There is a symmetric frontal beta rhythm. There is no focal slowing, there are no epileptiform abnormalities, there are no changes suggestive of sleep. Interpretation Normal-appearing awake/drowsy EEG. A normal EEG does not completely exclude a diagnosis of epilepsy. Further clinical correlation may be needed. [facility] EEG Procedure Codes Indication for Procedure (1) Altered mental status: Neurology Neurology: [id number] EEG include record awake & drowsy
[2023-03-07] MEDS: cefTRIAXone SODIUM 2,000 MG in DEXTROSE 5 % MINI-B 50 ML IV SCH (17:05)
[2023-03-07] MEDS: ENOXAPARIN INJ 40 MG/0.4 ML SYR SQ SCH (21:20)
[2023-03-07] MEDS: LOVASTATIN 20 MG TAB PO SCH (21:20)
[2023-03-07] MEDS: ACETAMINOPHEN 325 MG TAB PO PRN (21:26)
[2023-03-08] MEDS: LEVOTHYROXINE SODIUM 100 MCG TABLET PO SCH (06:16)
[2023-03-08] MEDS: buPROPion XL 150 MG TABCR PO SCH (08:56)
[2023-03-08] MEDS: CITALOPRAM 40 MG TAB PO SCH (08:56)
[2023-03-08] MEDS: hydroCHLOROthiazide 25 MG TAB PO SCH (08:57)
[2023-03-08] MEDS: LANTUS PER UNIT CHARGE SQ SCH ×2 (09:00→20:23)
[2023-03-08] MEDS: INSULIN ASPART PER UNIT CHARGE SC SCH ×4 (10:37→20:25)
--- NOTE | 2023-03-08 16:13 | Hospitalist Progress Note ---
Date of Service March 08, 2023 Assessment & Plan (1) Altered mental status: (2) UTI (urinary tract infection): Plan: Patient was sent from her [employer] appointment to the ED for concern of altered mental status. Patient reports that she has been having word finding difficulties and short- term memory issues Possible metabolic encephalopathy Leukocytosis present on admission. Urine culture suggestive of infection CT head without contrast did not show any acute finding; history of meningioma; unchanged. MRI brain without contrast did not show any acute finding. EEG w/ no acute finding Urine culture positive for E. coli Blood culture -no growth 48 hours Vitamin B12 within normal limits. TSH wnl and ESR wnl for age Neurology evaluated, appreciate recommendation. Patient will need outpatient neurology and ophthalmology follow-up. Continue IV antibiotics for now. Plan to treat for 5 days if blood culture is negative. Speech evaluated, PT/OT evaluated. Due to acute cognitive impairment, patient would likely need 24/7 supervision at home/if not possible then will likely need snf acutely until improvement in cognition status. No driving until cleared per neurology via OP eval. Overall, improving memory, more aware of recent events lately. (3) Hypokalemia: Plan: Monitor replete as appropriate. (4) Intermittent headache: Plan: History intermittent right frontal headaches ongoing for the past year. Follows with outpatient [facility] neurology. Now better. (5) Meningioma: Plan: Known meningiomas. . 08/13/2021 CT head: 1 possibly 2 extra-axial nodules along left aspect of an terior falx, possible small meningiomas. Outpatient MRI on 11/23/2022: 2 small meningiomas along the anterior falx, not significantly changed MRI Brain wo contrast-no acute findings. f/u w/ own neuro as OP. (6) HTN (hypertension): Plan: Continue HCTZ (7) Dyslipidemia: Plan: Continue lovastatin (8) Insulin dependent type 2 diabetes mellitus: Plan: A1c: 9.1 on 02/17/2023 Continue home basal insulin NovoLog sliding scale per protocol (9) CKD (chronic kidney disease) stage 3, GFR 30-59 ml/min: Plan: Cr: 1.26. Baseline 1.2 Monitor renal functions (10) Depression: Plan: Continue citalopram, bupropion (11) Sleep apnea: Plan: CPAP at bedtime DVT Prophylaxis: Lovenox SQ Dispo: will need 24/7 supervision or snf for the interim until her mentation improves. med/surg. 03/07 d/w pt's son Gio over the phone who states that he is arranging help for his mother at home. Please note the above document was generated using voice recognition software. It may contain grammatical, syntax or spelling errors. Any formal questions or concerns about the content, text or information contained within the body of this dictation should be directly addressed to the provider for clarification Admission and Anticipated Discharge Date Admission Date: March 04, 2023 Subjective Patient seen and examined at bedside. Pt w/ improving memory gradually over the course of last few days. Now with better remembrance of recent events. Still upset that she is going through acute cognitive changes. Denies dizziness, chest pain no sore throat or cough. No overnight events otherwise Physical Exam Physical Exam: General: no distress, obese Head: normocephalic, atraumatic Eyes: PERRL, EOM's intact, conjunctiva non-injected, anicteric ENT: normal inspection external ears, nose, mucous membranes moist; no temporal region tenderness Neck: supple, trachea midline Lungs: clear, no respiratory distress, no wheezing/rhonchi/rales CV: RRR, no murmur Abd: normal BS, soft, non-tender Ext: no cyanosis, no erythema, no calf tenderness, +trace edema bilateral lower extremities Neuro: Alert oriented x3; has some word finding difficulties. No other focal deficit. Skin: warm, dry Results & Data Results & Data Vital Signs (Past 12 Hours) Vital Signs Temp Pulse Pulse Resp BP Pulse Ox O2 Del Method 03/08/23 16:07 36.7 C 83 18 139/85 97 Room Air 03/08/23 08:00 78 03/08/23 12:21 36.8 C 75 20 145/83 H 98 Room Air 03/08/23 07:15 36.5 C 77 18 161/79 H 97 Room Air
[2023-03-08] MEDS: cefTRIAXone SODIUM 2,000 MG in DEXTROSE 5 % MINI-B 50 ML IV SCH (16:47)
[2023-03-08] MEDS: ENOXAPARIN INJ 40 MG/0.4 ML SYR SQ SCH (20:24)
[2023-03-08] MEDS: LOVASTATIN 20 MG TAB PO SCH (20:25)
[2023-03-08] MEDS: ACETAMINOPHEN 325 MG TAB PO PRN (20:29)
[2023-03-09] MEDS: ACETAMINOPHEN 325 MG TAB PO PRN ×2 (04:51→22:15)
[2023-03-09] MEDS: LEVOTHYROXINE SODIUM 100 MCG TABLET PO SCH (05:28)
[2023-03-09 06:38] LABS: Hematocrit (blood only) 37.1 % (37.0-47.0); Hemoglobin 12.2 g/dl (12.0-16.0); Mean Corpuscular Hgb Conc 32.9 g/dL (32.0-36.0); Mean Corpuscular Volume 82.1 fL (80.0-100.0); Mean Platelet Volume 10.4 fL (9.4-12.4); Platelet Count 235 K/uL (130-400); RDW Coefficient of Variation 14.1 % (11.5-14.5); RDW Standard Deviation 41.8 fL (36.4-46.3); Red Blood Count 4.52 M/uL (4.20-5.40); White Blood Count 9.78 K/ul (4.8-10.8)
[2023-03-09 06:42] LABS: BUN Creatinine Ratio 18.2 (10-20); Calcium 9.5 mg/dl (8.6-10.3); Creatinine Clr Calc Pharmacy 36.5 ml/min; Est GFR (African American) 43.3 ml/min; Est GFR (Non-African American) 37.4 ml/min; Potassium 3.2 mmol/L (3.5-5.1)
[2023-03-09] MEDS: CITALOPRAM 40 MG TAB PO SCH (07:50)
[2023-03-09] MEDS: buPROPion XL 150 MG TABCR PO SCH (07:50)
[2023-03-09] MEDS: hydroCHLOROthiazide 25 MG TAB PO SCH (07:50)
[2023-03-09] MEDS: LANTUS PER UNIT CHARGE SQ SCH ×2 (09:00→20:25)
[2023-03-09] MEDS: INSULIN ASPART PER UNIT CHARGE SC SCH ×4 (09:00→20:25)
--- NOTE | 2023-03-09 09:15 | Hospitalist Progress Note ---
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 Patient reports that she has been having word finding difficulties and short- term memory issues Possible metabolic encephalopathy which has now resolved. Leukocytosis present on admission. Urine culture suggestive of infection CT head without contrast did not show any acute finding; history of meningioma; unchanged. MRI brain without contrast did not show any acute finding. EEG w/ no acute finding Urine culture positive for E. coli Blood culture -no growth 48 hours Vitamin B12 within normal limits. TSH wnl and ESR wnl for age Neurology evaluated, appreciate recommendation. Patient will need outpatient neurology and ophthalmology follow-up. Antibiotic course almost complte. Speech evaluated, PT/OT evaluated. Planning for home with home health tomorrow. (3) Hypokalemia: Plan: Monitor replete as appropriate. Additional supplementation required this am. (4) Intermittent headache: Plan: History intermittent right frontal headaches ongoing for the past year. Follows with outpatient [facility] neurology. Resolved, followup as outpatient. (5) Meningioma: Plan: Known meningiomas. . 08/13/2021 CT head: 1 possibly 2 extra-axial nodules along left aspect of anterior falx, possible small meningiomas. Outpatient MRI on 11/23/2022: 2 small meningiomas along the anterior falx, not significantly changed MRI Brain wo contrast-no acute findings. f/u w/ own neuro as OP. (6) HTN (hypertension): Plan: chronic, stable. Continue HCTZ (7) Dyslipidemia: Plan: chronic, stable. Continue lovastatin (8) Insulin dependent type 2 diabetes mellitus: Plan: A1c: 9.1 on 02/17/2023 Continue home basal insulin NovoLog sliding scale per protocol (9) CKD (chronic kidney disease) stage 3, GFR 30-59 ml/min: Plan: chronic and at her baseline. Monitor renal functions periodically. (10) Depression: Plan: chronic, stable. Continue citalopram, bupropion (11) Sleep apnea: Plan: chronic, stable. Cont CPAP at bedtime (12) Morbid obesity: Plan: Lifestyle changes recommended. BMI currently 41.9. DVT proph: Lovenox Full Code Dispo-to home with HH in am. I spent a total [id number] coordinating, documenting, and providing care for this patient excluding time spent in the performance of separately billed services Sejal Verma DO [facility] Hospitalist Admission and Anticipated Discharge Date Admission Date: March 04, 2023 Subjective 77-year-old female admitted with a asymptomatic UTI and metabolic encephalopathy. She is mentating now at her baseline and is completely able to comprehend her situation. She has a good memory of events even at the nephrology clinic and is somewhat confused by the level of disability that is being described to her. She is open to outpatient neuropsych testing which we discussed today. She has no further symptoms of urinary tract infection. Today is her last day of antibiotic therapy. She has no fevers chills and is otherwise moving well enough to go home with home health per physical and Occupational Therapy. This is already been set up for [facility]. We discussed that she was in a talk to her son and plan for home tomorrow around lunchtime. Physical Exam Physical Exam: CONSTITUTIONAL: obese, vitals as above, generally well-appearing, NAD EYES: normal conjunctivae, no scleral icterus ENT: external ear and nose normal, MMM NECK: trachea midline RESPIRATORY: clear to auscultation bilaterally, no crackles, rales or wheezes, normal respiratory effort CARDIOVASCULAR: regular rate and rhythm, S1 and 2 heard without murmurs, gallops or rubs, no JVD, no peripheral edema CHEST: inspection of chest was normal GASTROINTESTINAL: soft, nontender, ND, no guarding MUSCULOSKELETAL: strength 5/5 throughout, head is normocephalic and atraumatic SKIN: warm and dry NEUROLOGIC: CN 2-12 grossly intact, no sensory deficit, normal cognition, normal speech, no tremor PSYCHIATRIC: alert cooperative and oriented to person, place and time. Euthymic mood, makes good eye contact, language grossly intact, recent and remote memory grossly intact. Results & Data Results & Data Vital Signs (Past 12 Hours) Vital Signs Temp Pulse Resp BP BP Pulse Ox O2 Del Method 03/09/23 07:25 36.9 C 79 18 147/81 H 99 Room Air 03/09/23 00:40 Room Air 03/09/23 01:04 36.5 C 80 18 144/84 H 98 Room Air Laboratory Results Short CBC 03/09/23 Range/Units 05:40 WBC 9.78 (4.8-10.8) K/ul Hgb 12.2 (12.0-16.0) g/dl Hct 37.1 (37.0-47.0) % Plt Count 235 (130-400) K/uL [facility] 03/09/23 05:40 Sodium 140 Potassium 3.2 L Chloride 103 Carbon Dioxide 28 BUN 25 H Creatinine 1.37 H Glucose 112 H Calcium 9.5 Medications Administered Current Inpatient Medications Acetaminophen (Acetaminophen 325 Mg Tab) 650 mg PO Q4H PRN PRN Reason: Pain or Fever Stop: 04/03/23 20:27 Last Admin: 03/09/23 04:51 Dose: 650 mg Bupropion HCl (Bupropion Xl 150 Mg Tabcr) 150 [facility] Stop: 04/04/23 08:59 Last Admin: 03/09/23 07:50 Dose: 150 mg Citalopram Hydrobromide (Citalopram 40 Mg Tab) 40 mg PO QACARL [facility] Stop: 04/04/23 08:59 Last Admin: 03/09/23 07:50 Dose: 40 mg Dextrose (Dextrose 50% 50 Ml Syringe) 25 - 50 ml IV UD PRN; Protocol PRN Reason: Hypoglycemia Protocol Stop: 04/03/23 20:27 Enoxaparin Sodium (Enoxaparin Inj 40 Mg/0.4 Ml Syr) 40 mg SQ Q24H MADYSON Stop: 04/03/23 20:59 Last Admin: 03/08/23 20:24 Dose: 40 mg Glucagon (Glucagon For Inj 1 Mg Vial) 1 mg SQ UD PRN; Protocol PRN Reason: Hypoglycemia Protocol Stop: 04/03/23 20:27 Glucose (Glucose 10 Tab/Tube) 4 - 8 tab PO UD PRN; Protocol PRN Reason: Hypoglycemia Treatment Stop: 04/03/23 20:27 Glucose (Glucose 40% Gel 15 Gm Tube) 15 - 30 gm PO UD PRN; Protocol PRN Reason: Hypoglycemia Protocol Stop: 04/03/23 20:27 Hydrochlorothiazide (Hydrochlorothiazide 25 Mg Tab) 25 mg PO QAM [facility] Stop: 04/04/23 08:59 Last Admin: 03/09/23 07:50 Dose: 25 mg Ceftriaxone Sodium 2,000 mg/ (Dextrose) 50 mls @ 100 mls/hr IV Q24H MADYSON; Protocol Stop: 03/10/23 15:59 Last Infusion: 03/08/23 17:33 Dose: Infused Insulin Aspart (Insulin Aspart Per Unit Charge) 0 units SC ACHS MADYSON Stop: 04/03/23 20:59 Last Admin: 03/09/23 09:00 Dose: 1 units Insulin Glargine (Lantus Per Unit Charge) 15 units SQ BID MADYSON Stop: 04/03/23 20:59 Last Admin: 03/09/23 09:00 Dose: 15 units Levothyroxine Sodium (Levothyroxine Sodium 100 Mcg Tablet) 100 mcg PO DAILYBB MADYSON Stop: 04/04/23 06:29 Last Admin: 03/09/23 05:28 Dose: 100 mcg Lovastatin (Lovastatin 20 Mg Tab) 40 mg PO HS MADYSON Stop: 04/03/23 20:59 Last Admin: 03/08/23 20:25 Dose: 40 mg Melatonin (Melatonin 3 Mg Tab) 3 mg PO HS PRN PRN Reason: Sleep Stop: 04/05/23 00:03 Last Admin: 03/06/23 00:11 Dose: 3 mg Miscellaneous (Carbohydrates For Hypoglycemia ) 15 - 30 gm PO UD PRN PRN Reason: Hypoglycemia Protocol Stop: 04/03/23 20:27 Ondansetron HCl (Ondansetron Inj 2 Mg/Ml 2 Ml Vial) 4 mg IV Q6H PRN PRN Reason: Nausea Stop: 04/03/23 20:27 Polyethylene Glycol (Polyethylene (Miralax) 17 Gm Pack) 17 gm PO DAILY PRN PRN Reason: Constipation Stop: 04/03/23 20:27 Potassium Chloride (Potassium Chloride Crtab 20 Meq Tabcr) 40 meq PO Q6H MADYSON Stop: 03/09/23 15:16
[2023-03-09] MEDS: POTASSIUM CHLORIDE CRTAB 20 MEQ TABCR PO SCH ×2 (10:12→17:20)
--- NOTE | 2023-03-09 16:08 | Communication Note ---
Date of Service: March 09, 2023 Neurology communication, 77 y/o female with history of HTN, CKD, VIRGIL, and DM that presented with altered mental status in the setting of UTI. Additionally, there had been some concern regarding a cognitive decline, though extent of chronicity unclear. MRI brain with no acute findings. EEG normal. TSH 0.311, B12 1007, ESR 39. Pt would likely benefit from neuropsychology testing as an outpatient, opthalmology follow-up, and close follow-up with neurology.
[2023-03-09] MEDS: cefTRIAXone SODIUM 2,000 MG in DEXTROSE 5 % MINI-B 50 ML IV SCH (17:20)
[2023-03-09] MEDS: ENOXAPARIN INJ 40 MG/0.4 ML SYR SQ SCH (20:24)
[2023-03-09] MEDS: LOVASTATIN 20 MG TAB PO SCH (20:24)
[2023-03-10] MEDS: LEVOTHYROXINE SODIUM 100 MCG TABLET PO SCH (05:15)
[2023-03-10] MEDS: buPROPion XL 150 MG TABCR PO SCH (08:22)
[2023-03-10] MEDS: CITALOPRAM 40 MG TAB PO SCH (08:22)
[2023-03-10] MEDS: hydroCHLOROthiazide 25 MG TAB PO SCH (08:22)
[2023-03-10 08:30] LABS: Calcium 9.9 mg/dl (8.6-10.3); Creatinine Clr Calc Pharmacy 34.7 ml/min; Est GFR (African American) 41.2 ml/min; Est GFR (Non-African American) 35.5 ml/min; Potassium 3.7 mmol/L (3.5-5.1)
[2023-03-10] MEDS: INSULIN ASPART PER UNIT CHARGE SC SCH (08:45)
[2023-03-10] MEDS: LANTUS PER UNIT CHARGE SQ SCH (09:25)
--- NOTE | 2023-03-10 10:47 | Discharge Summary ---
Discharge Summary Date of Service March 10, 2023 Admission HPI Per Admitting Provider Patient is 77-year-old female with PMH HTN, CKD III, DM II, VIRGIL, depression, obesity, history of chronic headache, history of meningioma, hypothyroidism presented to ER for altered mental status today. History obtained from patient, and outpatient chart review. Patient was seen at outpatient nephrology clinic today and was noted to be confused and was referred to ER. Patient states that she drove to appointment and she did have trouble navigating the parking lot and getting into the building secondary to being confused. Patient does feel that she is confused today. She reports dull right frontal RAMOS today. She also reports that she has been getting right frontal headaches intermittently for greater than one year. She has been seen by neurology outpatient. MRI 01/2022 with stable meningiomas. She is on gabapentin for neck pain and gabapentin was increased to 200 mg twice daily. It was recommended patient have repeat MRI in 1 year for follow-up. Seen in ER on 02/21/2023. At that time was referred by eye doctor for concern for memory troubles and possible stroke. At that time had CTA head and neck that showed no acute intracranial abnormality and showed an unchanged meningioma of anterior falx cerebri. UA at the time looked like possible contamination. Urine culture from 02/21/23 +e. coli. At time patient had not reported any urinary symptoms so was not treated for UTI. Denies fever/chills, diaphoresis, N/V/D/C, dizziness, syncope, vision changes, neck pain, CP, SOB, orthopnea, palpitations, cough, sore throat, choking, otalgia, rhinorrhea, abdominal pain, paresthesias, weakness, extremity weakness, increased extremity edema, rashes, dysuria, hematuria, urinary urgency, flank pain. 08/13/2021 CT head: 1 possibly 2 extra-axial nodules along left aspect of anterior falx, possible small meningiomas. 11/23/2022 MRI: 2 small meningiomas along the anterior falx, not significantly changed. Principal Dx & Hospital Course #1 = Principal Diagnosis Updated Medication List Medication Instructions Recorded Confirmed Type albuterol sulfate 90 mcg/actuation 2 puff inhalation Q4 PRN Shortness 10/27/18 03/04/23 History aerosol inhaler (Ventolin HFA) Of Breath citalopram 40 mg tablet 40 mg PO QAM 10/27/18 03/04/23 History fluticasone propionate 50 2 spray intranasal DAILY PRN 10/27/18 03/04/23 History mcg/actuation nasal Allergy Symptoms spray,suspension (Flonase Allergy Relief) hydrochlorothiazide 25 mg tablet 25 mg PO QAM 10/27/18 03/04/23 History insulin glargine 100 unit/mL 30 unit subcut HS 10/27/18 03/04/23 History subcutaneous solution (Lantus U-100 Insulin) insulin glulisine U-100 100 1 sliding scale dose subcut 10/27/18 03/04/23 History unit/mL subcutaneous solution USEASDIRECTD PRN Hyperglycemia (Apidra U-100 Insulin) lovastatin 40 mg tablet 40 mg PO HS 10/27/18 03/04/23 History multivitamin 1 tab PO Q OTHER DAY 10/27/18 03/04/23 History levothyroxine 100 mcg tablet 100 mcg PO QAM 03/04/21 03/04/23 History meloxicam 15 mg tablet 15 mg PO DAILY PRN Pain 08/13/21 03/04/23 History Ravinder Fierro #1 ea 03/04/22 03/04/23 Rx acetaminophen 500 mg capsule 1,000 mg PO TID PRN Headache 02/21/23 03/04/23 History bupropion HCl 150 mg 24 hr tablet, 150 mg PO QAM 02/21/23 03/04/23 History extended release gabapentin 100 mg capsule 200 mg PO BID 02/21/23 03/04/23 History Hospital Stay Data Consultations 03/04/23 16:10 ED Decision to Admit Stat 03/05/23 12:58 Consult Neurology Routine 03/06/23 14:35 Consult Behavioral Health Liaison Routine Diagnostic Imagining Performed 03/04/23 13:16 CT head/brain wo con Stat 03/04/23 18:22 MR brain wo con Routine Pending Results Patient Have Any Pending Studies at Discharge: No Discharge Instructions Given to Patient (Per Discharging Provider) Please take all medications as instructed on discharge list below. Outpatient neuropsychiatric testing is recommended to get a baseline of your cognitive function. This referral may be placed by your primary care physician (PCP) on followup. Please followup with your PCP in one week to ensure you are still doing well after returning home. It was a pleasure taking care of you! Please call if you have any questions or problems. You can reach a [facility] hours a day by calling [phone]. Take care of yourself. Sejal Verma, DO [facility]
== END 2023-03-10 11:30 | disposition home health service (06) | DRG 689 ==
LOC: ED 12:40 → EDINP 17:32 → SUATTDRO 17:32 → EDINP 20:29 → 2N 23:16 → 3N 03-09 00:33

== ENCOUNTER 2023-07-31 17:26 | Inpatient (IN) ==
--- NOTE | 2023-07-31 17:32 | ED Triage Note ---
Date of Service July 31, 2023 Provider in Triage Author: Ubaldo Kumar History of Present Illness This patient was briefly evaluated while in triage. An abbreviated physical exam was performed. This patient is a 78-year-old Female who presents to the ED for evaluation +influenza last week seen at and given amoxicillin Friday complaining of shortness of breath and chest pain started yesterday but worsened today Physical Exam GENERAL: NAD ENT: no posterior pharyngeal erythema CARDIOVASCULAR: RRR RESPIRATORY: CTA ABDOMEN: BS x 4. Nontender to palpation. Initial orders for labs and / or imaging were placed and patient was placed in the waiting area until a bed is available. Please see further documentation for the full ED course.
[2023-07-31 18:09] LABS: Basophils # (auto) 0.02 K/uL (0.00-0.20); Basophils % (auto) 0.4 %; Hematocrit (blood only) 37.8 % (37.0-47.0); Hemoglobin 12.9 g/dl (12.0-16.0); Immature Granulocytes # (auto) 0.04 K/uL (0.01-0.20); Immature Granulocytes % (auto) 0.9 %; Lymphocytes # (auto) 0.59 K/uL (1.20-3.40); Lymphocytes % (auto) 12.6 %; Mean Corpuscular Hemoglobin 26.9 pg (25.0-34.0); Mean Corpuscular Hgb Conc 34.1 g/dL (32.0-36.0); Mean Corpuscular Volume 78.8 fL (80.0-100.0); Mean Platelet Volume 10.9 fL (9.4-12.4); Monocytes # (auto) 0.13 K/uL (0.11-0.59); Monocytes % (auto) 2.8 %; Neutrophils # (auto) 3.91 K/uL (1.40-6.50); Neutrophils % (auto) 83.3 %; Platelet Count 274 K/uL (130-400); RDW Coefficient of Variation 13.1 % (11.5-14.5); RDW Standard Deviation 37.3 fL (36.4-46.3); White Blood Count 4.69 K/ul (4.8-10.8)
[2023-07-31 18:35] LABS: Alanine Aminotransferase 15 U/L (7-52); Albumin Globulin Ratio 1.2 (0.9-2); Albumin Level 3.9 gm/dl (3.4-5.0); Alkaline Phosphatase 35 U/L (34-104); Anion Gap 18 (3-11); Aspartate Aminotransferase 11 U/L (13-39); BUN Creatinine Ratio 17.3 (10-20); Blood Urea Nitrogen 27 mg/dl (6-23); Calcium 8.9 mg/dl (8.6-10.3); Carbon Dioxide 20 mmol/L (21-32); Chloride 94 mmol/L (98-107); Est GFR (African American) 36.8 ml/min; Est GFR (Non-African American) 31.7 ml/min; Globulin 3.2 gm/dl (2.5-4.0); Glucose 506 mg/dl (70-99(Fasting)); Potassium 3.1 mmol/L (3.5-5.1); Sodium 132 mmol/L (136-145); Total Protein 7.1 gm/dl (6.0-8.3); Troponin I High Sensitivity 18.8 pg/ml (0-14)
[2023-07-31 18:36] LABS: INR 0.9 (0.9-1.1); Partial Thromboplastin Ratio 0.9; Partial Thromboplastin Time 26 Seconds (21-31); Prothrombin Time 10.4 Seconds (9.0-12.0)
[2023-07-31 18:47] LABS: D Dimer 720 ug/L FEU (0-500)
[2023-07-31] MEDS ORDERED: GLUCOSE 40% GEL 15 GM TUBE PO PRN (19:09)
[2023-07-31] MEDS ORDERED: GLUCOSE 10 TAB/TUBE PO PRN (19:09)
[2023-07-31] MEDS ORDERED: DEXTROSE 50% 50 ML SYRINGE IV PRN (19:09)
[2023-07-31] MEDS ORDERED: CARBOHYDRATES FOR HYPOGLYCEMIA PO PRN (19:09)
[2023-07-31] MEDS ORDERED: GLUCAGON FOR INJ 1 MG VIAL SQ PRN (19:09)
--- NOTE | 2023-07-31 19:19 | Emergency Department Note ---
Impression & Plan Hypokalemia, Acute hyperglycemia, Shortness of breath, Elevated troponin ED Provider Note NAME: VIRGILIO WHATLEY AGE: 78 SEX: F : 1945 ARRIVES VIA: Ambulance INFORMANT: Patient ED PROVIDER(S): Valente Fish DO CHIEF COMPLAINT: shortness of breath HPI: Patient is a 78-year-old female who presents to the ER for shortness of breath associated with a cough, congestion, and runny nose. Patient denies a history of diabetes, hyperlipidemia, hypertension, and morbid obesity. Symptoms started earlier today. She notes that shortness of breath which is significantly worse with any kind of movement. Patient denies any belly pain nausea vomiting or diarrhea. No dysuria urgency or frequency. No other exacerbating remitting factors. ADDITIONAL HISTORY OBTAINED: Per HPI Chronic Medical/Social Conditions Affecting Care: Per HPI PAST MEDICAL HISTORY:See Below PAST SURGICAL HISTORY:See Below FAMILY HISTORY:See Below SOCIAL HISTORY:See Below HOME MEDICATIONS:See Below ALLERGIES:See Below VITALS:See Below PHYSICAL EXAMINATION: GENERAL: Sitting up in bed, alert, anxious, ill-appearing EYE EXAM: normal conjunctiva. PERRL and EOM's grossly intact. OROPHARYNX: no exudate, no erythema, lips, buccal mucosa, and tongue normal and mucous membranes are moist NECK: supple, no nuchal rigidity, no adenopathy, non-tender LUNGS: Clear to auscultation. Normal chest wall mechanics HEART: no murmurs, S1 normal and S2 normal ABDOMEN: abdomen soft, non-tender, normo-active bowel sounds, no masses, no rebound or guarding. BACK: Back is symmetrical on inspection and there is no deformity, no midline tenderness, no CVA tenderness. SKIN: no rashes and no bruising UPPER EXTREMITIES: upper extremities are grossly normal. LOWER EXTREMITIES: No pitting edema. NEURO EXAM: Normal sensorium, cranial nerves II-XII grossly intact, normal speech, no gross weakness of arms, no gross weakness of legs. No drift. Finger to nose intact. Gross sensation intact. MEDICAL DECISION MAKING: Patient is a 78-year-old female who presents the ER for the above-stated complaint. IV was established and was obtained. Labs show mild leukopenia 4.6 thousand. No significant anemia. INR unremarkable but D-dimer was elevated and ordered in triage. Age-adjusted is negative. VBG with pH 7.6 and a CO2 of 20. BMP with hypokalemia 3.1. This was repleted orally with 40 mill equivalents and 20 mill equivalents of the IV. It was gaff with a CO2 of 20. Creatinine 1.5. Glucose elevated at 500. She is given IV fluids. Magnesium was slightly low at 1.6. LFTs were unremarkable. Troponin was mildly elevated at 18. UA was clean. Viral panel was negative. Chest x-ray was without focal infiltrate. Patient was placed on insulin drip and given a bolus an hour after the oral potassium pills and after the completion of 10 mill equivalents to the IV. Discussed case with the hospitalist for further evaluation management treatment. Consults/Care Managements Discussions: Per [facility] Triage Nursing notes reviewed. Limited review of prior medical records performed Vital Signs: reviewed and remarkable for no significant abnormalities Differential diagnosis: Differential diagnoses includes but is not limited to pneumonia, bronchitis, COPD/Asthma exacerbation, pneumothorax, pulmonary embolism, congestive heart failure, acute coronary syndrome ER treatment provided: See below Diagnostics interpreted by me include EKG and cardiac monitoring as listed below: -Cardiac Monitoring: An order was placed for continuous cardiac monitoring. The monitor shows a rate of 101 with sinus rhythm. -ECG: Sinus rhythm rate 96 Normal axis No PVCs QTc 576 T wave inversion in the high lateral leads with T wave version in the septal leads which is new from previous -Laboratory studies:Interpreted by me as stated above in [facility] and shown below. Imaging studies: Xrays: As interpreted by me: Portable AP upright 1 view of the chest shows no focal infiltrate CTs show: none Procedures:none Critical Care: I have personally spent 32 minutes of critical care time in the direct management of this patient. This includes bedside care, interpretation of diagnostic studies, and testing, discussion with consultants, patient, and family members, and other required patient management activities. This 32 minutes is in excess of all separately billable procedures. Past Med/Surg History Medical History Acute metabolic encephalopathy Insulin dependent type 2 diabetes mellitus Meningioma Left rotator cuff tear Right knee DJD Encounter for pre-operative examination Morbid obesity Brain lesion Hypokalemia Abnormal urinalysis DVT prophylaxis Osteoarthritis Hypothyroidism Diabetes mellitus, type 2 Depression Hypertension Hyperlipidemia Sleep apnea Asthma Surgical History Status post left knee replacement Status post total left knee replacement History of carpal tunnel release History of lumbar discectomy History of anesthesia reaction History of dilatation and curettage History of bilateral tubal ligation History of colonoscopy History of tooth extraction History of wisdom tooth extraction History of tonsillectomy and adenoidectomy History of bilateral cataract extraction Family History Father Family history of reaction to anesthesia little slow to wake up Family history of diabetes mellitus Family hx colonic polyps Social History Smoking Status: Never smoker Second Hand Exposure: No; Do You Dip or Chew Tobacco: No; Hx Alcohol Use: No Hx Substance Use: No Preferred Language: Kinyarwanda Communication Ability: Effective Drafter Commercial Required: No Beliefs That Will Affect Care: None marital status: / Current Living Situation: Alone Feels Safe at Home: Yes Assistive Devices: Cane, CPAP and Glasses Allergies Allergies Allergy/AdvReac Type Severity Reaction Status Date / Time atorvastatin [From Lipitor] AdvReac Mild Bad dreams Verified 11/06/21 06:46 nitrofurantoin AdvReac Mild GI Upset Verified 11/06/21 06:46 adhesive AdvReac Unknown Skin Verified 11/06/21 06:46 irritations Home Meds Home Medications Medication Instructions Recorded Confirmed albuterol sulfate 90 mcg/actuation 2 puff inhalation Q4 PRN Shortness 10/27/18 03/04/23 aerosol inhaler (Ventolin HFA) Of Breath citalopram 40 mg tablet 40 mg PO QAM 10/27/18 03/04/23 fluticasone propionate 50 2 spray intranasal DAILY PRN 10/27/18 03/04/23 mcg/actuation nasal Allergy Symptoms spray,suspension (Flonase Allergy Relief) hydrochlorothiazide 25 mg tablet 25 mg PO QAM 10/27/18 03/04/23 insulin glargine 100 unit/mL 30 unit subcut HS 10/27/18 03/04/23 subcutaneous solution (Lantus U-100 Insulin) insulin glulisine U-100 100 1 sliding scale dose subcut 10/27/18 03/04/23 unit/mL subcutaneous solution USEASDIRECTD PRN Hyperglycemia (Apidra U-100 Insulin) lovastatin 40 mg tablet 40 mg PO HS 10/27/18 03/04/23 multivitamin 1 tab PO Q OTHER DAY 10/27/18 03/04/23 levothyroxine 100 mcg tablet 100 mcg PO QAM 03/04/21 03/04/23 meloxicam 15 mg tablet 15 mg PO DAILY PRN Pain 08/13/21 03/04/23 acetaminophen 500 mg capsule 1,000 mg PO TID PRN Headache 02/21/23 03/04/23 bupropion HCl 150 mg 24 hr tablet, 150 mg PO QAM 02/21/23 03/04/23 extended release gabapentin 100 mg capsule 200 mg PO BID 02/21/23 03/04/23 Previous Rx's Medication Instructions Recorded Ravinder Fierro #1 ea 03/04/22 Results & Data (ED) Vital Signs Vital Signs - 24 hr 07/31/23 17:29 07/31/23 18:57 07/31/23 19:43 Temperature 36.9 C Temperature Source Temporal Artery Scan Pulse Rate 103 H 96 H Pulse Rate [Apical] 88 Pulse Rhythm Regular Pulse Strength Normal Respiratory Rate 20 24 Respiratory Effort / Characteristics Non-Labored Spontaneous Spontaneous Respiratory Depth Normal Normal Respiratory Pattern Regular Blood Pressure 173/79 H Blood Pressure [Left Arm] Blood Pressure Mean 110 Blood Pressure Mean [Left Arm] Blood Pressure Position Sitting Pulse Oximetry 99 100 Oxygen Delivery Method Room Air Room Air Sepsis Recent Fever Within 48 Hours No Sepsis New/Unexplained Change in Mental Status N/A Sepsis Action Taken by Nursing No Action Required 07/31/23 21:00 07/31/23 21:58 Temperature Temperature Source Pulse Rate Pulse Rate [Apical] 86 Pulse Rhythm Pulse Strength Respiratory Rate 24 Respiratory Effort / Characteristics Respiratory Depth Respiratory Pattern Blood Pressure Blood Pressure [Left Arm] 137/96 145/75 H Blood Pressure Mean Blood Pressure Mean [Left Arm] 109 98 Blood Pressure Position Pulse Oximetry 100 Oxygen Delivery Method Room Air Sepsis Recent Fever Within 48 Hours Sepsis New/Unexplained Change in Mental Status Sepsis Action Taken by Nursing Laboratory Data 07/31/23 17:50 07/31/23 17:50 Lab Results 07/31/23 07/31/23 07/31/23 Range/Units 17:50 18:20 19:32 WBC 4.69 L (4.8-10.8) K/ul RBC 4.80 (4.20-5.40) M/uL Hgb 12.9 (12.0-16.0) g/dl Hct 37.8 (37.0-47.0) % MCV 78.8 L (80.0-100.0) fL MCH 26.9 (25.0-34.0) pg MCHC 34.1 (32.0-36.0) g/dL RDW Std Deviation 37.3 (36.4-46.3) fL RDW Coeff of Jackie 13.1 (11.5-14.5) % Plt Count 274 (130-400) K/uL MPV 10.9 (9.4-12.4) fL Immature Gran % (Auto) 0.9 % Neut % (Auto) 83.3 % Lymph % (Auto) 12.6 % [place] % (Auto) 2.8 % Eos % (Auto) 0.0 % Baso % (Auto) 0.4 % Neut # (Auto) 3.91 (1.40-6.50) K/uL Lymph # (Auto) 0.59 L (1.20-3.40) K/uL [place] # (Auto) 0.13 (0.11-0.59) K/uL Eos # (Auto) 0.00 (0.00-0.50) K/uL Baso # (Auto) 0.02 (0.00-0.20) K/uL Immature Gran # (Auto) 0.04 (0.01-0.20) K/uL PT 10.4 (9.0-12.0) Seconds INR 0.9 (0.9-1.1) APTT 26 (21-31) Seconds PTT Ratio 0.9 D-Dimer 720 H* (0-500) ug/L FEU VBG pH (7.36-7.41) VBG pCO2 (38-50) mmHg VBG pO2 mmHg VBG HCO3 mmol/L VBG O2 Saturation % VBG Base Excess mEq/L Sodium 132 L (136-145) mmol/L Potassium 3.1 L (3.5-5.1) mmol/L Chloride 94 L (98-107) mmol/L Carbon Dioxide 20 L (21-32) mmol/L Anion Gap 18 H (3-11) BUN 27 H (6-23) mg/dl Creatinine 1.56 H (0.6-1.2) mg/dl Est Cr Clr Drug Dosing Not Reportable Est GFR ( Amer) 36.8 ml/min Est GFR (Non-Af Amer) 31.7 ml/min BUN/Creatinine Ratio 17.3 (10-20) Glucose 506 H* (70-99(Fasting)) mg/dl POC Glucose (70-99) mg/dl Calcium 8.9 (8.6-10.3) mg/dl Magnesium 1.6 L (1.7-2.4) mg/dl Total Bilirubin 1.0 (0.2-1.0) mg/dl AST 11 L (13-39) U/L ALT 15 (7-52) U/L Alkaline Phosphatase 35 (34-104) U/L Troponin I High Sens 18.8 H (0-14) pg/ml Total Protein 7.1 (6.0-8.3) gm/dl Albumin 3.9 (3.4-5.0) gm/dl Globulin 3.2 (2.5-4.0) gm/dl Albumin/Globulin Ratio 1.2 (0.9-2) Urine Color Yellow Urine Appearance Clear (Clear) Urine pH 6.0 (4.5-7.5) Ur Specific [place] 1.023 (1.000-1.030) Urine Protein 1+ H (Negative) Urine Glucose (UA) 3+ H (Negative) Urine Ketones 2+ H (Negative) Urine Blood Negative (Negative) Urine Nitrite Negative (Negative) Urine Bilirubin Negative (Negative) Urine Urobilinogen Negative (Negative) Ur Leukocyte Esterase Negative (Negative) Urine WBC (Auto) 1-5 (0-5) /hpf Urine RBC (Auto) 0-4 (0-4) /hpf U Hyaline Cast (Auto) 1-5 (0-5) /lpf U Epithel Cells (Auto) >30 H (0-5) /lpf Urine Bacteria (Auto) Negative (Negative) Adenovirus (PCR) Not Detected (NotDetected) B. pertussis DNA (PCR) Not Detected (NotDetected) B.parapertussis DNA PCR Not Detected (NotDetected) C. pneumoniae DNA (PCR) Not Detected (NotDetected) Coronavirus OC43 (PCR) Not Detected (NotDetected) Coronavirus HKU1 (PCR) Not Detected (NotDetected) Coronavirus 229E (PCR) Not Detected (NotDetected) SARS-CoV-2 (PCR) Not Detected (NotDetected) Coronavirus NL63 (PCR) Not Detected (NotDetected) Human Metapneumovir PCR Not Detected (NotDetected) Influenza Type A (PCR) Not Detected (NotDetected) Influenza Type B (PCR) Not Detected (NotDetected) M. pneumoniae (PCR) Not Detected (NotDetected) Parainfluenza 1 (PCR) Not Detected (NotDetected) Parainfluenza 2 (PCR) Not Detected (NotDetected) Parainfluenza 3 (PCR) Not Detected (NotDetected) Parainfluenza 4 (PCR) Not Detected (NotDetected) RSV (PCR) Not Detected (NotDetected) Entero/Rhino (PCR) Not Detected (NotDetected) 07/31/23 07/31/23 07/31/23 Range/Units 19:54 20:20 21:13 WBC (4.8-10.8) K/ul RBC (4.20-5.40) M/uL Hgb (12.0-16.0) g/dl Hct (37.0-47.0) % MCV (80.0-100.0) fL MCH (25.0-34.0) pg MCHC (32.0-36.0) g/dL RDW Std Deviation (36.4-46.3) fL RDW Coeff of Jackie (11.5-14.5) % Plt Count (130-400) K/uL MPV (9.4-12.4) fL Immature Gran % (Auto) % Neut % (Auto) % Lymph % (Auto) % [place] % (Auto) % Eos % (Auto) % Baso % (Auto) % Neut # (Auto) (1.40-6.50) K/uL Lymph # (Auto) (1.20-3.40) K/uL [place] # (Auto) (0.11-0.59) K/uL Eos # (Auto) (0.00-0.50) K/uL Baso # (Auto) (0.00-0.20) K/uL Immature Gran # (Auto) (0.01-0.20) K/uL PT (9.0-12.0) Seconds INR (0.9-1.1) APTT (21-31) Seconds PTT Ratio D-Dimer (0-500) ug/L FEU VBG pH 7.61 H (7.36-7.41) VBG pCO2 20 L (38-50) mmHg VBG pO2 35 mmHg VBG HCO3 20 mmol/L VBG O2 Saturation < 60.0 % VBG Base Excess 0.8 mEq/L Sodium (136-145) mmol/L Potassium (3.5-5.1) mmol/L Chloride (98-107) mmol/L Carbon Dioxide (21-32) mmol/L Anion Gap (3-11) BUN (6-23) mg/dl Creatinine (0.6-1.2) mg/dl Est Cr Clr Drug Dosing Est GFR ( Amer) ml/min Est GFR (Non-Af Amer) ml/min BUN/Creatinine Ratio (10-20) Glucose (70-99(Fasting)) mg/dl POC Glucose 509 H* 473 H* (70-99) mg/dl Calcium (8.6-10.3) mg/dl Magnesium (1.7-2.4) mg/dl Total Bilirubin (0.2-1.0) mg/dl AST (13-39) U/L ALT (7-52) U/L Alkaline Phosphatase (34-104) U/L Troponin I High Sens (0-14) pg/ml Total Protein (6.0-8.3) gm/dl Albumin (3.4-5.0) gm/dl Globulin (2.5-4.0) gm/dl Albumin/Globulin Ratio (0.9-2) Urine Color Urine Appearance (Clear) Urine pH (4.5-7.5) Ur Specific [place] (1.000-1.030) Urine Protein (Negative) Urine Glucose (UA) (Negative) Urine Ketones (Negative) Urine Blood (Negative) Urine Nitrite (Negative) Urine Bilirubin (Negative) Urine Urobilinogen (Negative) Ur Leukocyte Esterase (Negative) Urine WBC (Auto) (0-5) /hpf Urine RBC (Auto) (0-4) /hpf U Hyaline Cast (Auto) (0-5) /lpf U Epithel Cells (Auto) (0-5) /lpf Urine Bacteria (Auto) (Negative) Adenovirus (PCR) (NotDetected) B. pertussis DNA (PCR) (NotDetected) B.parapertussis DNA PCR (NotDetected) C. pneumoniae DNA (PCR) (NotDetected) Coronavirus OC43 (PCR) (NotDetected) Coronavirus HKU1 (PCR) (NotDetected) Coronavirus 229E (PCR) (NotDetected) SARS-CoV-2 (PCR) (NotDetected) Coronavirus NL63 (PCR) (NotDetected) Human Metapneumovir PCR (NotDetected) Influenza Type A (PCR) (NotDetected) Influenza Type B (PCR) (NotDetected) M. pneumoniae (PCR) (NotDetected) Parainfluenza 1 (PCR) (NotDetected) Parainfluenza 2 (PCR) (NotDetected) Parainfluenza 3 (PCR) (NotDetected) Parainfluenza 4 (PCR) (NotDetected) RSV (PCR) (NotDetected) Entero/Rhino (PCR) (NotDetected) Administered Medications Insulin Human Regular 250 (units/ Sodium Chloride) 250 mls @ 9 mls/hr IV .Q24H [facility]; Protocol Stop: 08/30/23 19:14 Last Admin: 07/31/23 21:24 Dose: 9 units/hr, 9 mls/hr Documented By: MED Co-signed By: BCN Insulin Aspart (Insulin Aspart Per Unit Charge) 0 units SC ACHS [facility] Stop: 08/30/23 20:59 Last Admin: 07/31/23 21:33 Dose: Not Given Documented By: MED Co-signed By: LCD Discontinued Medications Potassium Chloride (K Shon / Wtr) 10 meq in 100 mls @ 100 mls/hr IV Q1H [facility] Stop: 07/31/23 21:29 Last Admin: 07/31/23 20:55 Dose: 100 mls/hr Documented By: Infusion: 07/31/23 20:55 Dose: Infused Documented By: municipal services manager: 07/31/23 19:55 Dose: 100 mls/hr Documented By: MED Parenteral Electrolytes (Plasma-Lyte A Ph 7.4) 1,000 mls @ 999 mls/hr IV .Q1H1M ONE Stop: 07/31/23 20:28 Last Admin: 07/31/23 19:58 Dose: 999 mls/hr Documented By: BRYAN Lalcellaneous (Stat Iv Infusion Titration Per Protocol) 1 each N/A NOW STA Stop: 07/31/23 19:10 Last Admin: 07/31/23 21:33 Dose: Not Given Documented By: BRYAN Lalcellaneous (Dka Goal Range 150-250 Mg/Dl) 1 each N/A ONE ONE Stop: 07/31/23 19:10 Last Admin: 07/31/23 21:33 Dose: Not Given Documented By: BRYAN Lalcellaneous (Patient's Height &/Or Weight Needed) 1 each N/A Q2H [facility] Stop: 08/30/23 19:44 Last Admin: 07/31/23 19:48 Dose: 1 each Documented By: MED Potassium Chloride (Potassium Chloride Crtab 20 Meq Tabcr) 40 meq PO NOW STA Stop: 07/31/23 19:10 Last Admin: 07/31/23 19:54 Dose: 40 meq Documented By: MED Discharge Plan Visit Data Chief Complaint: Shortness of Breath/Dyspnea Stated Complaint: ILLNESS, ANXIETY, SOB ED Provider: Valente Fish Discharge Problem: Hypokalemia, Acute hyperglycemia, Shortness of breath, Elevated troponin Forms Stand Alone Forms: [employer] Prescriptions Prescriptions: No Action (DME) Ravinder Payne See Rx Instructions .MEDSUPPLY Qty: 1 0RF Rx Instructions: As directed multivitamin Tablet 1 tab PO Q OTHER DAY insulin glargine [Lantus U-100 Insulin] 100 unit/mL Solution 30 unit SUBCUT HS citalopram 40 mg Tablet 40 mg PO QAM lovastatin 40 mg Tablet 40 mg PO HS hydrochlorothiazide 25 mg Tablet 25 mg PO QAM albuterol sulfate [Ventolin HFA] 90 mcg/actuation Hfa Aerosol Inhaler 2 puff INHALATION Q4 PRN (Reason: Shortness Of Breath) fluticasone propionate [Flonase Allergy Relief] 50 mcg/actuation [place],Suspension 2 spray INTRANASAL DAILY PRN (Reason: Allergy Symptoms) Apidra U-100 Insulin 100 unit/mL Solution 1 sliding scale dose SUBCUT USEASDIRECTD PRN (Reason: Hyperglycemia) Rx Instructions: SLIDING SCALE meloxicam 15 mg tablet 15 mg PO DAILY PRN (Reason: Pain) levothyroxine 100 mcg Tablet 100 mcg PO QAM Rx Instructions: Take at least 30 min before breakfast or other medication gabapentin 100 mg capsule 200 mg PO BID bupropion HCl 150 mg tablet extended release 24 hr 150 mg PO QAM acetaminophen 500 mg capsule 1,000 mg PO TID PRN (Reason: Headache) Rx Instructions: Take 3 times per day to lessen pain. Referrals Referrals: Hi Mcdaniels MD [Primary Care Provider] - Discharge Problem:
[2023-07-31 19:20] LABS: Adenovirus PCR Not Detected (NotDetected); Bordetella parapertussis PCR Not Detected (NotDetected); Bordetella pertussis PCR Not Detected (NotDetected); Chlamydia pneumoniae PCR Not Detected (NotDetected); Coronavirus 229E PCR Not Detected (NotDetected); Coronavirus CoV-2 (COVID19)PCR Not Detected (NotDetected); Coronavirus HKU1 PCR Not Detected (NotDetected); Coronavirus NL63 PCR Not Detected (NotDetected); Coronavirus OC43PCR Not Detected (NotDetected); Human Metapneumovirus PCR Not Detected (NotDetected); Influenza A PCR Not Detected (NotDetected); Influenza B PCR Not Detected (NotDetected); Mycoplasma pneumoniae PCR Not Detected (NotDetected); Parainfluenza Virus 1 PCR Not Detected (NotDetected); Parainfluenza Virus 2 PCR Not Detected (NotDetected); Parainfluenza Virus 3 PCR Not Detected (NotDetected); Parainfluenza Virus 4 PCR Not Detected (NotDetected); Respiratory Syncytial VirusPCR Not Detected (NotDetected); Rhinovirus/Enterovirus PCR Not Detected (NotDetected)
[2023-07-31 19:44] LABS: Magnesium 1.6 mg/dl (1.7-2.4)
[2023-07-31] MEDS: Patient's HEIGHT &/or WEIGHT Needed SCH (19:48)
[2023-07-31 19:49] LABS: Appearance Urine Clear (Clear); Bacteria Urine Automated Negative (Negative); Bilirubin Urine Negative (Negative); Blood Urine Negative (Negative); Color Urine Yellow; Epithelial Cell Urine Auto >30 /lpf (0-5); Glucose Urine UA 3+ (Negative); Ketones Urine 2+ (Negative); Leukocyte Esterase Urine Negative (Negative); Nitrite Urine Negative (Negative); Protein Urine 1+ (Negative); RBC Urine Automated 0-4 /hpf (0-4); Specific Gravity Urine 1.023 (1.000-1.030); Urobilinogen Urine Negative (Negative)
[2023-07-31] MEDS: POTASSIUM CHLORIDE CRTAB 20 MEQ TABCR PO STA (19:54)
[2023-07-31] MEDS: POTASSIUM CHLORIDE / WTR 10 MEQ/100 ML PLCT IV SCH (19:55)
[2023-07-31] MEDS: PLASMA-LYTE A 1,000 ML IV ONE (19:58)
[2023-07-31 20:30] LABS: Base Excess VBG 0.8 mEq/L; HCO3 VBG 20 mmol/L; Oxygen Saturation VBG < 60.0 %; PCO2 VBG 20 mmHg (38-50); PO2 VBG 35 mmHg; pH VBG 7.61 (7.36-7.41)
[2023-07-31] MEDS: INSULIN REGULAR 250 UNITS in SODIUM CHLORIDE 0.9% 247.5 ML IV SCH (21:24)
[2023-07-31] MEDS: STAT IV Infusion **Titration per Protocol STA (21:33)
[2023-07-31] MEDS: DKA GOAL RANGE 150-250 mg/dl ONE (21:33)
[2023-07-31] MEDS: INSULIN ASPART PER UNIT CHARGE SC SCH (21:33)
[2023-07-31] MEDS: MAGNESIUM SULFATE / D5W 1 GM/100 ML BAG IV SCH (22:41)
--- NOTE | 2023-07-31 23:22 | Ultrasound Report ---
Exam(s): US VENOUS BILATERAL LOWER EXTREMITIES EXAM: US Duplex Bilateral Lower Extremities Veins CLINICAL HISTORY: Reason for exam: elevated didimer.b/l lower ext edema. DVT?. TECHNIQUE: Real-time duplex ultrasound scan of the bilateral lower extremity veins integrating B-mode two-dimensional vascular structure, Doppler spectral analysis, color flow Doppler imaging and compression. COMPARISON: None. FINDINGS: Limitations: Exam is limited due to patient's inability to tolerate compression and positioning in certain areas. Right deep veins: Unremarkable. No DVT in the right common femoral, femoral, proximal deep femoral or popliteal veins. The veins demonstrate normal color flow, are normally compressible, with normal phasic flow and/or augmentation response. Right superficial veins: Unremarkable. No thrombus in the visualized right great saphenous vein. Left deep veins: Unremarkable. No DVT in the left common femoral, femoral, proximal deep femoral or popliteal veins. The veins demonstrate normal color flow, are normally compressible, with normal phasic flow and/or augmentation response. Left superficial veins: Unremarkable. No thrombus in the visualized left great saphenous vein. Soft tissues: Nonspecific edema bilateral calf region. No popliteal cyst. IMPRESSION: No ultrasonographic evidence of deep venous thrombosis involving the bilateral lower extremities within the limits of the exam described. Electronically signed by: Glenda Wadsworth MD 07/31/23 23:21 PM
[2023-07-31] MEDS ORDERED: DKA GOAL RANGE 150-250 mg/dl ONE (23:50)
[2023-07-31] MEDS ORDERED: STAT IV Infusion **Titration per Protocol STA (23:50)
[2023-07-31] MEDS ORDERED: SODIUM CHLORIDE 0.9% 1,000 ML IV SCH (23:50)
[2023-07-31] MEDS ORDERED: ACETAMINOPHEN 325 MG TAB PO PRN (23:50)
[2023-07-31] MEDS ORDERED: PENDING 1/2NSS+20mEq KCL IVF SCH (23:50)
[2023-07-31] MEDS ORDERED: PHARMACY GLYCEMIC MGMT CONSULT PRN (23:50)
[2023-07-31] MEDS ORDERED: INSULIN REGULAR 250 UNITS in SODIUM CHLORIDE 0.9% 247.5 ML IV SCH (23:50)
[2023-07-31] MEDS ORDERED: NITROGLYCERIN SL 0.4 MG/TAB TAB SL PRN (23:50)
[2023-07-31] MEDS ORDERED: POLYETHYLENE (MIRALAX) 17 GM PACK PO PRN (23:50)
--- NOTE | 2023-08-01 00:04 | CT Scan Report ---
Exam(s): CT HEAD Without Contrast EXAM: CT Head Without Intravenous Contrast CLINICAL HISTORY: Reason for exam: headache, menigoma?. TECHNIQUE: Axial computed tomography images of the head/brain without intravenous contrast. CTDI is 35.65 mGy and DLP is 547.75 mGy-cm. Automated exposure control was utilized for the study. A dose lowering technique was utilized adhering to the principles of ALARA. COMPARISON: 03/04/2023. FINDINGS: Brain: Extra-axial hyperdense lesion with internal calcification within the left anterior frontal parafalcine region measuring a diameter of 12 mm most compatible with partially calcified meningioma. Mild generalized brain atrophy. No hemorrhage. No significant white matter disease. Ventricles: Unremarkable. No ventriculomegaly. Bones/joints: Unremarkable. No acute fracture. Soft tissues: Unremarkable. Sinuses: Unremarkable as visualized. No acute sinusitis. Mastoid air cells: Unremarkable as visualized. No mastoid effusion. Other findings: Slight decreased attenuation within the department are most compatible with mild microangiopathic disease. IMPRESSION: 1. Left anterior falx meningioma measuring 12 mm. No significant surrounding edema or midline shift. 2. Chronic changes as described with no acute intracranial hemorrhage. No dense MCA sign to suggest acute stroke. Electronically signed by: Glenda Wadsworth MD 08/01/23 00:03 AM
[2023-08-01] MEDS: PENDING D5 1/2NS+20mEq KCL IVF ONE (00:30)
[2023-08-01] MEDS: D5W AND 1/2NSS + 20MEQ KCL 20 MEQ/1,000 ML BAG IV SCH (00:38)
--- NOTE | 2023-08-01 00:41 | History & Physical Report ---
Date of Service July 31, 2023 Assessment & Plan (1) DKA (diabetic ketoacidosis): Plan: 78-year-old female with past med history significant for type 2 diabetes, CKD stage III, hyperlipidemia, hypothyroidism, sleep apnea, hypertension, morbid obesity, mixed stress and urge incontinence, degenerative disc disease, history of meningioma, history of episodic tension headache, depression with anxiety, mild cognitive impairment presents with shortness of breath starting today and found to be in DKA. Patient somewhat restless. Difficult to get history from patient. Complains of shortness of breath. Mild chest pain. Denies nausea ,denies abdominal pain. Somewhat constipated. Not making much urine as per patient .having mild headache. Somewhat nausea. Seems seen by PCP by telemedicine yesterday for chronic cough and seems prescribed prednisone short course but patient does not remember taking prednisone. Saturating 100% room air. Hemodynamics are okay. DKA Insulin drip and fluids and labs as per DKA protocol Close monitor Glycemic pharmacy consult Shortness of breath Not feeling well Likely from DKA Chest x-ray looks okay D-dimer 720 but in normal range when adjusted to age Lower extremity Doppler is negative for DVT Will follow VQ scan Currently saturating 100% on room air VBG PH 7.6. Will monitor Chest pain Mild elevation troponin Will follow serial enzymes and echo consult cardiology in am. Hypokalemia and hypomagnesia Will replace and close monitor Close monitor potassium levels while on IV insulin drip Prolonged QTc Mostly from above Avoid QT prolonging drugs Follow repeat EKG Nausea received a dose of emend. Obesity Obstructive sleep apnea CPAP nightly ALLIE on CKD stage III Presented creatinine 1.5 Baseline seems around 1.2-1.3 Follow repeat labs Hypertension Holding hydrochlorothiazide Will monitor Depression with anxiety Holding citalopram and bupropion for prolonged QTc received Ativan for anxiety. Restart when able to Sinusitis Recently started on Augmentin to complete the course. Last date on August 05 Hypothyroidism On Synthyroid Hyperlipidemia On statin DVT prophylaxis Lovenox Disposition Telemetry Full code History of Present Illness Chief Complaint: Shortness of breath and not feeling well Primary Care Provider: Hi Mcdaniels MD 78-year-old female with past med history significant for type 2 diabetes, CKD stage III, hyperlipidemia, hypothyroidism, sleep apnea, hypertension, morbid obesity, mixed stress and urge incontinence, degenerative disc disease, history of meningioma, history of episodic tension headache, depression with anxiety, mild cognitive impairment presents with shortness of breath starting today and found to be in DKA. Patient somewhat restless. Difficult to get history from patient. Complains of shortness of breath. Mild chest pain. Denies nausea ,denies abdominal pain. Somewhat constipated. Not making much urine as per patient .having mild headache. Somewhat nausea. Seems seen by PCP by telemedicine yesterday for chronic cough and seems prescribed prednisone short course but patient does not remember taking prednisone. Saturating 100% room air. Hemodynamics are okay. Past medical history. As mentioned above Past surgical history. Left total knee arthroplasty. Left carpal tunnel surgery. Colonoscopy. Ligation of oviducts. Lumbar spine fusion surgery. Bilateral cataracts. Tonsillectomy adenoidectomy. Social history. No smoking. No alcohol use. No drug use. Family history. Mother had stomach cancer. Gallbladder disease. Father had diabetes. Gallbladder disease. Valve replacement. Stroke. Brother has Parkinson disease. Allergies Allergy/AdvReac Type Severity Reaction Status Date / Time atorvastatin [From Lipitor] AdvReac Mild Bad dreams Verified 07/31/23 22:35 nitrofurantoin AdvReac Mild GI Upset Verified 07/31/23 22:35 adhesive AdvReac Unknown Skin Verified 07/31/23 22:35 irritations Home Medications Medication Instructions Recorded Confirmed Type hydrochlorothiazide 25 mg tablet 25 mg PO QAM 10/27/18 07/31/23 History insulin glargine 100 unit/mL 30 unit subcut HS 10/27/18 07/31/23 History subcutaneous solution (Lantus U-100 Insulin) lovastatin 40 mg tablet 40 mg PO HS 10/27/18 07/31/23 History levothyroxine 100 mcg tablet 100 mcg PO DAILYBB 03/04/21 07/31/23 History Ravinder Vadim #1 ea 03/04/22 03/04/23 Rx acetaminophen 500 mg capsule 1,000 mg PO TID PRN Headache 02/21/23 07/31/23 History bupropion HCl 150 mg 24 hr tablet, 150 mg PO QAM 02/21/23 07/31/23 History extended release gabapentin 100 mg capsule 200 mg PO BID 02/21/23 07/31/23 History albuterol sulfate 90 mcg/actuation 2 puff inhalation Q4H PRN 07/31/23 07/31/23 History aerosol inhaler (Proventil HFA) Shortness Of Breath Or Wheezing amoxicillin 875 mg-potassium 1 tab PO AMHS 07/31/23 07/31/23 History clavulanate 125 mg tablet cholecalciferol (vitamin D3) 25 25 mcg PO QAM 07/31/23 07/31/23 History mcg (1,000 unit) tablet citalopram 40 mg tablet 40 mg PO QAM 07/31/23 07/31/23 History cyanocobalamin (vitamin B-12) 1,000 mcg PO QAM 07/31/23 07/31/23 History 1,000 mcg tablet diclofenac sodium 1 % topical gel 2 g topical BID 07/31/23 07/31/23 History multivitamin with minerals 1 tab PO Q2D 07/31/23 07/31/23 History (Multiple Vitamin-Minerals tablet) prednisone 20 mg tablet 40 mg PO .QAM [id number] 07/31/23 07/31/23 History Past Med/Surg History Medical History Acute metabolic encephalopathy Insulin dependent type 2 diabetes mellitus Meningioma Left rotator cuff tear Right knee DJD Encounter for pre-operative examination Morbid obesity Brain lesion Hypokalemia Abnormal urinalysis DVT prophylaxis Osteoarthritis Hypothyroidism Diabetes mellitus, type 2 Depression Hypertension Hyperlipidemia Sleep apnea Asthma Surgical History Status post left knee replacement Status post total left knee replacement History of carpal tunnel release History of lumbar discectomy History of anesthesia reaction History of dilatation and curettage History of bilateral tubal ligation History of colonoscopy History of tooth extraction History of wisdom tooth extraction History of tonsillectomy and adenoidectomy History of bilateral cataract extraction Family History Father Family history of reaction to anesthesia little slow to wake up Family history of diabetes mellitus Family hx colonic polyps Social History Smoking Status: Never smoker Second Hand Exposure: No; Do You Dip or Chew Tobacco: No; Hx Alcohol Use: No Hx Substance Use: No Preferred Language: Faroese Communication Ability: Effective 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 ENT- oropharynx clear Neck- supple, no JVD. Lungs- clear to auscultation no wheezing or crackles. Heart- regular rhythm; no murmur, no gallop. Abdomen- normal bowel sounds, soft, nontender, no distension Extremities- b/l pretibial edema present , no erythema seen Neuro- alert, oriented , restless, PERRL,; no facial palsy; no dysarthria; obeys simple commands, moves extremities. Skin- warm & dry Results & Data Results & Data Vital Signs (Past 12 Hours) Vital Signs Temp Pulse Pulse Resp BP BP Pulse Ox 07/31/23 22:53 89 24 149/94 H 100 07/31/23 21:58 145/75 H 07/31/23 21:00 86 24 137/96 100 07/31/23 19:43 88 24 100 07/31/23 18:57 96 H 07/31/23 17:29 36.9 C 103 H 20 173/79 H 99 O2 Del Method 07/31/23 22:53 Room Air 07/31/23 21:58 07/31/23 21:00 Room Air 07/31/23 19:43 Room Air 07/31/23 18:57 07/31/23 17:29 Room Air Diagnostic Findings Laboratory Results WBC 4.69 K/ul (4.8-10.8) L 07/31/23 17:50 RBC 4.80 M/uL (4.20-5.40) 07/31/23 17:50 Hgb 12.9 g/dl (12.0-16.0) 07/31/23 17:50 Hct 37.8 % (37.0-47.0) 07/31/23 17:50 MCV 78.8 fL (80.0-100.0) L 07/31/23 17:50 MCH 26.9 pg (25.0-34.0) 07/31/23 17:50 MCHC 34.1 g/dL (32.0-36.0) 07/31/23 17:50 RDW Std Deviation 37.3 fL (36.4-46.3) 07/31/23 17:50 RDW Coeff of Jackie 13.1 % (11.5-14.5) 07/31/23 17:50 Plt Count 274 K/uL (130-400) 07/31/23 17:50 MPV 10.9 fL (9.4-12.4) 07/31/23 17:50 Immature Gran % (Auto) 0.9 % 07/31/23 17:50 Neut % (Auto) 83.3 % 07/31/23 17:50 Lymph % (Auto) 12.6 % 07/31/23 17:50 [place] % (Auto) 2.8 % 07/31/23 17:50 Eos % (Auto) 0.0 % 07/31/23 17:50 Baso % (Auto) 0.4 % 07/31/23 17:50 Neut # (Auto) 3.91 K/uL (1.40-6.50) 07/31/23 17:50 Lymph # (Auto) 0.59 K/uL (1.20-3.40) L 07/31/23 17:50 [place] # (Auto) 0.13 K/uL (0.11-0.59) 07/31/23 17:50 Eos # (Auto) 0.00 K/uL (0.00-0.50) 07/31/23 17:50 Baso # (Auto) 0.02 K/uL (0.00-0.20) 07/31/23 17:50 Immature Gran # (Auto) 0.04 K/uL (0.01-0.20) 07/31/23 17:50 PT 10.4 Seconds (9.0-12.0) 07/31/23 17:50 INR 0.9 (0.9-1.1) 07/31/23 17:50 APTT 26 Seconds (21-31) 07/31/23 17:50 PTT Ratio 0.9 07/31/23 17:50 D-Dimer 720 ug/L FEU (0-500) H* 07/31/23 17:50 VBG pH 7.61 (7.36-7.41) H 07/31/23 20:20 VBG pCO2 20 mmHg (38-50) L 07/31/23 20:20 VBG pO2 35 mmHg 07/31/23 20:20 VBG HCO3 20 mmol/L 07/31/23 20:20 VBG O2 Saturation < 60.0 % 07/31/23 20:20 VBG Base Excess 0.8 mEq/L 07/31/23 20:20 Sodium 132 mmol/L (136-145) L 07/31/23 17:50 Potassium 3.1 mmol/L (3.5-5.1) L 07/31/23 17:50 Chloride 94 mmol/L (98-107) L 07/31/23 17:50 Carbon Dioxide 20 mmol/L (21-32) L 07/31/23 17:50 Anion Gap 18 (3-11) H 07/31/23 17:50 BUN 27 mg/dl (6-23) H 07/31/23 17:50 Creatinine 1.56 mg/dl (0.6-1.2) H 07/31/23 17:50 Est Cr Clr Drug Dosing Not Reportable 07/31/23 17:50 Est GFR ( Amer) 36.8 ml/min 07/31/23 17:50 Est GFR (Non-Af Amer) 31.7 ml/min 07/31/23 17:50 BUN/Creatinine Ratio 17.3 (10-20) 07/31/23 17:50 Glucose 506 mg/dl (70-99(Fasting)) H* 07/31/23 17:50 POC Glucose 186 mg/dl (70-99) H 07/31/23 23:50 Calcium 8.9 mg/dl (8.6-10.3) 07/31/23 17:50 Magnesium 1.6 mg/dl (1.7-2.4) L 07/31/23 17:50 Total Bilirubin 1.0 mg/dl (0.2-1.0) 07/31/23 17:50 AST 11 U/L (13-39) L 07/31/23 17:50 ALT 15 U/L (7-52) 07/31/23 17:50 Alkaline Phosphatase 35 U/L (34-104) 07/31/23 17:50 Troponin I High Sens 18.8 pg/ml (0-14) H 07/31/23 17:50 Total Protein 7.1 gm/dl (6.0-8.3) 07/31/23 17:50 Albumin 3.9 gm/dl (3.4-5.0) 07/31/23 17:50 Globulin 3.2 gm/dl (2.5-4.0) 07/31/23 17:50 Albumin/Globulin Ratio 1.2 (0.9-2) 07/31/23 17:50 Urine Color Yellow 07/31/23 19:32 Urine Appearance Clear (Clear) 07/31/23 19:32 Urine pH 6.0 (4.5-7.5) 07/31/23 19:32 Ur Specific [place] 1.023 (1.000-1.030) 07/31/23 19:32 Urine Protein 1+ (Negative) H 07/31/23 19:32 Urine Glucose (UA) 3+ (Negative) H 07/31/23 19:32 Urine Ketones 2+ (Negative) H 07/31/23 19:32 Urine Blood Negative (Negative) 07/31/23 19:32 Urine Nitrite Negative (Negative) 07/31/23 19:32 Urine Bilirubin Negative (Negative) 07/31/23 19:32 Urine Urobilinogen Negative (Negative) 07/31/23 19:32 Ur Leukocyte Esterase Negative (Negative) 07/31/23 19:32 Urine WBC (Auto) 1-5 /hpf (0-5) 07/31/23 19:32 Urine RBC (Auto) 0-4 /hpf (0-4) 07/31/23 19:32 U Hyaline Cast (Auto) 1-5 /lpf (0-5) 07/31/23 19:32 U Epithel Cells (Auto) >30 /lpf (0-5) H 07/31/23 19:32 Urine Bacteria (Auto) Negative (Negative) 07/31/23 19:32 Adenovirus (PCR) Not Detected (NotDetected) 07/31/23 18:20 B. pertussis DNA (PCR) Not Detected (NotDetected) 07/31/23 18:20 B.parapertussis DNA PCR Not Detected (NotDetected) 07/31/23 18:20 C. pneumoniae DNA (PCR) Not Detected (NotDetected) 07/31/23 18:20 Coronavirus OC43 (PCR) Not Detected (NotDetected) 07/31/23 18:20 Coronavirus HKU1 (PCR) Not Detected (NotDetected) 07/31/23 18:20 Coronavirus 229E (PCR) Not Detected (NotDetected) 07/31/23 18:20 SARS-CoV-2 (PCR) Not Detected (NotDetected) 07/31/23 18:20 Coronavirus NL63 (PCR) Not Detected (NotDetected) 07/31/23 18:20 Human Metapneumovir PCR Not Detected (NotDetected) 07/31/23 18:20 Influenza Type A (PCR) Not Detected (NotDetected) 07/31/23 18:20 Influenza Type B (PCR) Not Detected (NotDetected) 07/31/23 18:20 M. pneumoniae (PCR) Not Detected (NotDetected) 07/31/23 18:20 Parainfluenza 1 (PCR) Not Detected (NotDetected) 07/31/23 18:20 Parainfluenza 2 (PCR) Not Detected (NotDetected) 07/31/23 18:20 Parainfluenza 3 (PCR) Not Detected (NotDetected) 07/31/23 18:20 Parainfluenza 4 (PCR) Not Detected (NotDetected) 07/31/23 18:20 RSV (PCR) Not Detected (NotDetected) 07/31/23 18:20 Entero/Rhino (PCR) Not Detected (NotDetected) 07/31/23 18:[address] 07/31/23 21:10 Exam(s): CT HEAD Without Contrast EXAM: CT Head Without Intravenous Contrast CLINICAL HISTORY: Reason for exam: headache, menigoma?. TECHNIQUE: Axial computed tomography images of the head/brain without intravenous contrast. CTDI is 35.65 mGy and DLP is 547.75 mGy-cm. Automated exposure control was utilized for the study. A dose lowering technique was utilized adhering to the principles of ALARA. COMPARISON: 03/04/2023. FINDINGS: Brain: Extra-axial hyperdense lesion with internal calcification within the left anterior frontal parafalcine region measuring a diameter of 12 mm most compatible with partially calcified meningioma. Mild generalized brain atrophy. No hemorrhage. No significant white matter disease. Ventricles: Unremarkable. No ventriculomegaly. Bones/joints: Unremarkable. No acute fracture. Soft tissues: Unremarkable. Sinuses: Unremarkable as visualized. No acute sinusitis. Mastoid air cells: Unremarkable as visualized. No mastoid effusion. Other findings: Slight decreased attenuation within the department are most compatible with mild microangiopathic disease. IMPRESSION: 1. Left anterior falx meningioma measuring 12 mm. No significant surrounding edema or midline shift. 2. Chronic changes as described with no acute intracranial hemorrhage. No dense MCA sign to suggest acute stroke. Electronically signed by: Glenda Wadsworth MD 08/01/23 00:03 AM Venous Doppler Study 07/31/23 21:10 Exam(s): US VENOUS BILATERAL LOWER EXTREMITIES EXAM: US Duplex Bilateral Lower Extremities Veins CLINICAL HISTORY: Reason for exam: elevated didimer.b/l lower ext edema. DVT?. TECHNIQUE: Real-time duplex ultrasound scan of the bilateral lower extremity veins integrating B-mode two-dimensional vascular structure, Doppler spectral analysis, color flow Doppler imaging and compression. COMPARISON: None. FINDINGS: Limitations: Exam is limited due to patient's inability to tolerate compression and positioning in certain areas. Right deep veins: Unremarkable. No DVT in the right common femoral, femoral, proximal deep femoral or popliteal veins. The veins demonstrate normal color flow, are normally compressible, with normal phasic flow and/or augmentation response. Right superficial veins: Unremarkable. No thrombus in the visualized right great saphenous vein. Left deep veins: Unremarkable. No DVT in the left common femoral, femoral, proximal deep femoral or popliteal veins. The veins demonstrate normal color flow, are normally compressible, with normal phasic flow and/or augmentation response. Left superficial veins: Unremarkable. No thrombus in the visualized left great saphenous vein. Soft tissues: Nonspecific edema bilateral calf region. No popliteal cyst. IMPRESSION: No ultrasonographic evidence of deep venous thrombosis involving the bilateral lower extremities within the limits of the exam described. Electronically signed by: Glenda Wadsworth MD 07/31/23 23:21 PM ECG Additional Comments: ECG. Sinus rhythm with marked sinus arrhythmia rate of 96. ST and T wave abnormality in lateral leads. Prolonged QTc Code Status & VTE Plan VTE Prophylaxis Plan VTE Prophylaxis will be ordered: Yes
[2023-08-01 01:34] LABS: BUN Creatinine Ratio 16.6 (10-20); Calcium 8.7 mg/dl (8.6-10.3); Creatinine Clr Calc Pharmacy 33.4 ml/min; Est GFR (African American) 40.2 ml/min; Est GFR (Non-African American) 34.6 ml/min; Potassium 3.1 mmol/L (3.5-5.1)
[2023-08-01 01:36] LABS: Magnesium 2.2 mg/dl (1.7-2.4)
[2023-08-01] MEDS ORDERED: POTASSIUM PHOS 3 MMOL/1 ML INFUSION IV STA (01:44)
[2023-08-01] MEDS: ENOXAPARIN INJ 40 MG/0.4 ML SYR SQ SCH (02:04)
[2023-08-01] MEDS: POTASSIUM CHLORIDE CRTAB 20 MEQ TABCR PO STA (02:18)
[2023-08-01] MEDS: POTASSIUM PHOSPHATE 30 MMOL in SODIUM CHLORIDE 0.9% 500 ML IV ONE (02:25)
[2023-08-01] MEDS: ACETAMINOPHEN 1,000 MG/100 ML VIAL IV STA (03:52)
[2023-08-01] MEDS: LORazepam 0.5 MG TAB SL STA (03:55)
[2023-08-01] MEDS: ALBUTEROL HFA 8 GM INHALER INH PRN (04:22)
[2023-08-01] MEDS: FOSAPREPITANT DIMEGLUMINE 115 MG in 0.9 % SODIUM CHLORIDE 111.1667 ML IV ONE (04:27)
[2023-08-01 04:42] LABS: BUN Creatinine Ratio 16.8 (10-20); Calcium 8.6 mg/dl (8.6-10.3); Creatinine Clr Calc Pharmacy 35.8 ml/min; Est GFR (Non-African American) 37.1 ml/min; Magnesium 2.3 mg/dl (1.7-2.4); Phosphorus 2.1 mg/dl (2.5-4.9); Potassium 3.9 mmol/L (3.5-5.1)
[2023-08-01 04:53] LABS: Troponin I High Sensitivity 25.8 pg/ml (0-14)
[2023-08-01] MEDS: LORazepam 0.25 MG in SYRINGE 0.125 ML IV STA (05:15)
[2023-08-01] MEDS: POTASSIUM CHLORIDE 40 MEQ in D5W AND 1/2NSS 1,000 ML IV SCH (05:19)
[2023-08-01] MEDS: LEVOTHYROXINE SODIUM 100 MCG TABLET PO SCH (07:00)
[2023-08-01] MEDS: INSULIN ASPART PER UNIT CHARGE SC SCH (07:28)
--- NOTE | 2023-08-01 07:33 | XRay Report ---
XR chest 1V portable CLINICAL HISTORY: Dyspnea. COMPARISON STUDY: Chest radiograph September 2022. FINDINGS: Lung volumes are normal. Lungs are clear. Elliptical density projecting over the lateral ri ght lower hemithorax likely reflects overlying soft tissues. There is no pneumothorax or pleural effu edu. Mild cardiomegaly is unchanged. Mediastinal contours are normal. There is no evidence for pulmo nary edema. IMPRESSION: No acute cardiopulmonary findings. ACT 112: Negative or not required by law. Electronically signed by: Nelson Jacob M.D. 08/01/2023 7:31 AM
[2023-08-01] MEDS: CYANOCOBALAMIN (B-12) 500 MCG TABLET PO SCH (07:36)
[2023-08-01] MEDS: CHOLECALCIFEROL 25 MCG (1000 UNITS) TAB PO SCH (07:36)
[2023-08-01] MEDS: DICLOFENAC SOD 1% GEL 100 GM TUBE EXT SCH (07:36)
[2023-08-01] MEDS: CEROVITE ADV FORMULA TAB PO SCH (07:37)
[2023-08-01] MEDS: AMOXICILLIN/CLAVULANATE 875 MG TAB PO SCH (07:37)
[2023-08-01] MEDS: GABAPENTIN 100 MG CAP PO SCH (07:37)
[2023-08-01 07:54] LABS: Estimated Average Glucose 249 mg/dl; Hemoglobin A1C 10.3 % (4.5-5.6)
[2023-08-01 08:09] LABS: Creatinine Clr Calc Pharmacy 36.3 ml/min; Est GFR (African American) 43.8 ml/min; Est GFR (Non-African American) 37.8 ml/min; Magnesium 2.1 mg/dl (1.7-2.4); Phosphorus 4.2 mg/dl (2.5-4.9)
--- NOTE | 2023-08-01 09:23 | Cardiology Consultation ---
Date of Consultation August 01, 2023 Assessment & Plan (1) DKA (diabetic ketoacidosis): (2) Chest pain: (3) Shortness of breath: (4) Hypokalemia: (5) Abnormal echocardiogram: (6) Dyslipidemia, goal LDL below 70: Plan 78-year-old female admitted on July 31, 2023 with diabetic ketoacidosis. Cardiology consultation requested due to chest pain and exertional dyspnea/reduced exercise tolerance. History is difficult to discern as noted below. Objective data concerning for an abnormal EKG revealing anterolateral ischemia, mildly elevated troponin, and a resting echocardiography revealing a small anteroseptal wall motion abnormality with subtle hypokinesis of the apical segment of the anteroseptum with preserved LV systolic function. Creatinine improved (1.35 mg/dL this AM); electrolytes replaced. HCTZ on hold. Recommend initiation of aspirin 81 mg/day and low-dose beta-patito therapy as well as intensification of statin therapy (switching lovastatin to rosuvastatin noting history of adverse reaction to atorvastatin). Maintain NPO status for further cardiac evaluation, pending evaluation by Dr. Callejas. Supervising Physician Co-Signing Physician Notes Attending attestation: Case reviewed with the advanced practitioner. I have personally performed a history and physical examination on the patient. I have reviewed the advanced practitioner's documentation on the date of service referenced in note, and I agree with, and take responsibility for the plan of care. Subjective: Patient denies any subjective symptoms at time of my assessment. She was unable to tell me why she came to the hospital or describe any recent issues. Telemetry reveals sinus rhythm in the 60s Exam: Cardiovascular: Regular rhythm, no murmurs, no edema Data: EKG performed on arrival 07/31/2023 at 1739 and interpreted independently: Sinus rhythm at 96 bpm with sinus arrhythmia, T wave inversions noted in lead V2 as well as I and aVL, otherwise diffuse nonspecific T wave flattening noted. The corrected QT interval is 576 ms but I feel that this is likely overestimated due to the morphology of the deep T wave inversions in lead V2. Compared to the previous tracing performed 03/04/2023, T wave inversions have replaced diffuse nonspecific T wave flattening Repeat tracing today 08/01/2023 at 3:22 AM: Normal sinus rhythm at 60 bpm, ST-T wave abnormality consistent with anterolateral ischemia with T wave inversions in the precordial leads V2-V6, as well as the high lateral leads I and aVL. Compared to the previous tracing performed yesterday, the T wave changes are more pronounced and are noted throughout the precordial leads Hemoglobin A1c 10.3% Glucose was 509 on presentation last evening and has improved to measurements of 91 and 142 mg/dL on an insulin infusion this morning High-sensitivity troponin levels: 18.8--> 25.8--> 24--> 22.4 Transthoracic echocardiogram performed this morning and interpreted independently: There is a small sized subtle anteroseptal wall motion abn ormality with subtle hypokinesis of the apical segment of the anterior septum noted on the parasternal long axis images. Left ventricular ejection fraction is normal, 60-65%. The right ventricular chamber size and systolic function is normal. Moderate aortic valve sclerosis without stenosis is noted. Grade 1 diastolic dysfunction noted Impression/ Plan: -Patient presentation consistent with diabetic ketoacidosis. -Minimal relatively flat elevation in high-sensitivity troponin noted, with development of repolarization abnormalities on EKG consistent with anterolateral ischemia. Subtle septal wall motion abnormality on echocardiogram. -Patient without any symptoms to suggest angina at present. Patient with history of recent short-term memory issues, and suspected superimposed delirium. -If myocardial ischemia was the precipitating event causing the DKA, I would expect more pronounced elevation in the troponin. -Given mental status, patient is not an ideal candidate for cardiac cath eterization and given lack of clinical symptoms at present, I have concerns that such a procedure could pose more harm than benefit at present. -As documented in a separate progress note, Mr. Roberts had spoken to the patient's daughter, and no recent anginal symptoms were reportedly observed by daughter or reported to the daughter by the patient. -Patient did substantiate complaint of recent shortness of breath on initial interview with Mr. Roberts earlier today, but did not describe this during my assessment. -Recommend ongoing medical therapy for the hyperglycemia which has improved. -Recommend blood cultures which will be ordered. -Aspirin 81 mg daily, low-dose metoprolol, statin therapy ordered. -Start unfractionated heparin infusion. I spent a total of 40 minutes coordinating, documenting, and providing care for this patient excluding time spent in the performance of separately billed services or time spent by another provider. Enrique Callejas, History of Present Illness Reason for Consultation: Chest pain Requesting Physician: Dr. Cadet Attending Physician: Dr. Pereira History of Present Illness Joanna Gann (Jean) is a 78-year-old female who was admitted to [facility] after presenting to the ER on July 31, 2023 with complaints of fatigue, shortness of breath, cough, chest congestion, and ? chest pain. Data: 1. Laboratory work revealed a glucose of 560 mg/dL for which the patient was placed on an insulin drip, DKA protocol. 2. Initial EKG revealed sinus rhythm at 96 bpm with sinus arrhythmia, possible old septal infarct, diffuse STT wave abnormality and a prolonged QTc interval of 576 ms. 3. EKG this morning reveals normal sinus rhythm at 68 bpm with significant anterolateral STT wave abnormality and a prolonged QTc interval of 586 ms. 4. High-sensitivity troponin elevated 18.8 -> 25.8 -> 24.0 pg/mL 5. Chest x-ray showed no acute cardiopulmonary findings 6. Potassium was low at 3.1 mmol/L, repleted by mouth and IV in the ER. Magnesium was low at 1.6, also repleted in the ER. 7. Elevated D-dimer led to a venous duplex showing no evidence of DVT Information from the patient is somewhat difficult to obtain and discern. Patient does not recall her urgent care visit on July 27, 2023 which time she was felt to have maxillary sinusitis and prescribed Augmentin. She also does not recall completing a telemedicine visit with Dr. Rojas on July 30, 2023 at which time she was prescribed prednisone and an albuterol inhaler. She denies chest pain or discomfort. She notes shortness of breath with activity. She is comfortable at rest without resting shortness of breath, nocturnal shortness of breath, orthopnea, or PND. She denies palpitations. She notes an ongoing cough productive of phlegm. No fevers or chills. No dizziness or syncope. No melena or hematochezia. Patient denies prior cardiac history. She specifically denies history of CAD, [place], CHF, arrhythmia, heart murmur, rheumatic fever, or scarlet fever Past Medical and Surgical History Type 2 diabetes mellitus, longstanding, insulin-dependent, uncontrolled History of hyperkalemia with past use of MO inhibitor therapy (lisinopril) Stage III chronic kidney disease Hypertension Dyslipidemia Hypothyroidism Morbid obesity Obstructive sleep apnea Meningioma Tension headache Anxiety and depression Cognitive impairment Mixed stress and urge incontinence Degenerative disc disease status post lumbar discectomy Left rotator cuff tear Right knee degenerative joint disease status post replacement Carpal tunnel release History of D&C, tubal ligation Tonsillectomy and adenoidectomy Cataract extraction Family History: Not notable for CAD Social History: Non-smoker. No smokeless tobacco. No significant alcohol. No illegal/illicit drug use. . Retired from [employer]. Daughter and 2 grandchildren moved in with her approximately 1 month ago. Allergies Allergy/AdvReac Type Severity Reaction Status Date / Time atorvastatin [From Lipitor] AdvReac Mild Bad dreams Verified 07/31/23 22:35 nitrofurantoin AdvReac Mild GI Upset Verified 07/31/23 22:35 adhesive AdvReac Unknown Skin Verified 07/31/23 22:35 irritations Home Medications Medication Instructions Recorded Confirmed Type hydrochlorothiazide 25 mg tablet 25 mg PO QAM 10/27/18 07/31/23 History insulin glargine 100 unit/mL 30 unit subcut HS 10/27/18 07/31/23 History subcutaneous solution (Lantus U-100 Insulin) lovastatin 40 mg tablet 40 mg PO HS 10/27/18 07/31/23 History levothyroxine 100 mcg tablet 100 mcg PO DAILYBB 03/04/21 07/31/23 History Ravinder Fierro #1 ea 03/04/22 03/04/23 Rx acetaminophen 500 mg capsule 1,000 mg PO TID PRN Headache 02/21/23 07/31/23 History bupropion HCl 150 mg 24 hr tablet, 150 mg PO QAM 02/21/23 07/31/23 History extended release gabapentin 100 mg capsule 200 mg PO BID 02/21/23 07/31/23 History albuterol sulfate 90 mcg/actuation 2 puff inhalation Q4H PRN 07/31/23 07/31/23 History aerosol inhaler (Proventil HFA) Shortness Of Breath Or Wheezing amoxicillin 875 mg-potassium 1 tab PO AMHS 07/31/23 07/31/23 History clavulanate 125 mg tablet cholecalciferol (vitamin D3) 25 25 mcg PO QAM 07/31/23 07/31/23 History mcg (1,000 unit) tablet citalopram 40 mg tablet 40 mg PO QAM 07/31/23 07/31/23 History cyanocobalamin (vitamin B-12) 1,000 mcg PO QAM 07/31/23 07/31/23 History 1,000 mcg tablet diclofenac sodium 1 % topical gel 2 g topical BID 07/31/23 07/31/23 History multivitamin with minerals 1 tab PO Q2D 07/31/23 07/31/23 History (Multiple Vitamin-Minerals tablet) prednisone 20 mg tablet 40 mg PO .QAM X5DAYS 07/31/23 07/31/23 History Patient History Medical History Acute metabolic encephalopathy Insulin dependent type 2 diabetes mellitus Meningioma Left rotator cuff tear Right knee DJD Encounter for pre-operative examination Morbid obesity Brain lesion Likely 2 meningiomas per 10/01/21 brain MRI > referred to neurosurgery by PCP (appt scheduled 10/17; [facility] Hypokalemia Abnormal urinalysis DVT prophylaxis Osteoarthritis Hypothyroidism Diabetes mellitus, type 2 IDDM Depression Hypertension Hyperlipidemia Sleep apnea CPAP (compliant) Asthma allergy induced Surgical History Status post left knee replacement Status post total left knee replacement History of carpal tunnel release Right (07/2019) History of lumbar discectomy History of anesthesia reaction Slow to wake History of dilatation and curettage History of bilateral tubal ligation History of colonoscopy History of tooth extraction History of wisdom tooth extraction History of tonsillectomy and adenoidectomy History of bilateral cataract extraction Family History Father Family history of reaction to anesthesia little slow to wake up Family history of diabetes mellitus Family hx colonic polyps Social History Smoking Status: Never smoker Second Hand Exposure: No; Do You Dip or Chew Tobacco: No; Hx Alcohol Use: No Hx Substance Use: No Preferred Language: Portuguese Communication Ability: Effective Floor Covering Printer Required: No Beliefs That Will Affect Care: None marital status: / Current Living Situation: Family Feels Safe at Home: Yes Assistive Devices: Cane Review of Systems Review of Systems: See above. Due to memory impairment. Otherwise, negative or noncontributory Physical Exam Physical Exam: General: A&Ox2. NAD. Obese HENT: Normocephalic. Atraumatic. Eyes: PER. Conjunctiva pink, sclera clear. Neck: No carotid bruits. No JVD. No HJR. Heart: RRR 70 bpm. No murmur. No rub. No gallop. PMI is nondisplaced. Lungs: Diminished. Decreased. Faint expiratory wheeze. Left-sided rhonchi that improved post cough. Abdomen: +BS. Soft. Nontender. No masses or organomegaly. Extremities: Thick, with minimal edema, nonpitting. No clubbing. No cyanosis. Limited neurological examination is without focal deficits. Pulses: radial=2/4, posterior tibial=1/4. Results & Data Vital Signs (Past 12 Hours) Vital Signs Temp Pulse Pulse Resp BP BP BP 08/01/23 08:10 36.4 C L 75 19 118/72 08/01/23 04:23 70 22 08/01/23 03:30 36.4 C L 68 20 126/81 08/01/23 01:39 08/01/23 01:04 36.7 C 85 22 114/78 08/01/23 00:00 80 07/31/23 22:53 89 24 149/94 H 07/31/23 21:58 145/75 H 07/31/23 21:00 86 24 137/96 Pulse Ox O2 Del Method 08/01/23 08:10 97 Room Air 08/01/23 04:23 99 Room Air 08/01/23 03:30 100 Room Air 08/01/23 01:39 Room Air 08/01/23 01:04 98 Room Air 08/01/23 00:00 07/31/23 22:53 100 Room Air 07/31/23 21:58 07/31/23 21:00 100 Room Air Laboratory Results Cardiac Enzymes 07/31/23 08/01/23 08/01/23 Range/Units 17:50 03:50 07:06 AST 11 L (13-39) U/L Troponin I High Sens 18.8 H 25.8 H 24.0 H (0-14) pg/ml Coagulation 07/31/23 Range/Units 17:50 PT 10.4 (9.0-12.0) Seconds APTT 26 (21-31) Seconds CBC 07/31/23 Range/Units 17:50 WBC 4.69 L (4.8-10.8) K/ul RBC 4.80 (4.20-5.40) M/uL Hgb 12.9 (12.0-16.0) g/dl Hct 37.8 (37.0-47.0) % Plt Count 274 (130-400) K/uL Neut # (Auto) 3.91 (1.40-6.50) K/uL Lymph # (Auto) 0.59 L (1.20-3.40) K/uL Letcher # (Auto) 0.13 (0.11-0.59) K/uL Eos # (Auto) 0.00 (0.00-0.50) K/uL Baso # (Auto) 0.02 (0.00-0.20) K/uL Comprehensive Metabolic Panel 07/31/23 08/01/23 08/01/23 Range/Units 17:50 00:50 03:50 Sodium 132 L 136 135 L (136-145) mmol/L Potassium 3.1 L 3.1 L 3.9 D (3.5-5.1) mmol/L Chloride 94 L 100 99 (98-107) mmol/L Carbon Dioxide 20 L 24 21 (21-32) mmol/L BUN 27 H 24 H 23 (6-23) mg/dl Creatinine 1.56 H 1.45 H 1.37 H (0.6-1.2) mg/dl Glucose 506 H* 174 H 276 H (70-99(Fasting)) mg/dl Calcium 8.9 8.7 8.6 (8.6-10.3) mg/dl AST 11 L (13-39) U/L ALT 15 (7-52) U/L Alkaline Phosphatase 35 (34-104) U/L Total Protein 7.1 (6.0-8.3) gm/dl Albumin 3.9 (3.4-5.0) gm/dl 08/01/23 Range/Units 07:06 Sodium 137 (136-145) mmol/L Potassium 4.0 (3.5-5.1) mmol/L Chloride 104 (98-107) mmol/L Carbon Dioxide 24 (21-32) mmol/L BUN 23 (6-23) mg/dl Creatinine 1.35 H (0.6-1.2) mg/dl Glucose 226 H (70-99(Fasting)) mg/dl Calcium 8.0 L (8.6-10.3) mg/dl AST (13-39) U/L ALT (7-52) U/L Alkaline Phosphatase (34-104) U/L Total Protein (6.0-8.3) gm/dl Albumin (3.4-5.0) gm/dl Intake and Output 07/31/23 08/01/23 08/01/23 22:59 06:59 14:59 Intake Total 1211.7 / 2309.858 1098.158 / 2309.858 529.57 / 529.57 Balance 1211.7 / 2309.858 1098.158 / 2309.858 529.57 / 529.57 Intake: IV 1211.7 / 2309.858 1098.158 / 2309.858 529.57 / 529.57 Acetaminophen 1,000 mg In 100 100 / 100 ml @ 400 mls/hr IV NOW STA Rx#: [id number] D5w and 1/2Nss + 20Meq KCl 20 652.5 / 652.5 meq In 1,000 ml @ 150 mls/hr IV .Q6H40M [facility] Rx#:[id number] Fosaprepitant Dimeglumine 115 115 / 115 mg In 0.9 % Sodium Chloride 111 .1667 ml @ 450 mls/hr IV ONE ONE Rx#:[id number] Insulin Regular 250 units In 11.7 / 42.358 30.658 / 42.358 19.57 / 19.57 Sodium Chloride 0.9% 247.5 ml @ 0 UNITS/HR IV .Q0M [facility] Rx#: [id number] Magnesium Sulfate / D5w 1 gm In 200 / 200 100 ml @ 50 mls/hr IV Q2H [facility] Rx#:[id number] Plasma-Lyte A 1,000 ml @ 999 1000 / 1000 mls/hr IV .Q1H1M ONE Rx#: [id number] Potassium Chloride / Wtr 10 meq 200 / 200 In 100 ml @ 100 mls/hr IV Q1H [facility] Rx#:[id number] Potassium Phosphate 30 mmol In 510 / 510 Sodium Chloride 0.9% 500 ml @ 100 mls/hr IV ONE ONE Rx#: [id number] Oral 0 / 0 Other: # Unmeasured Voids 0 Weight 93.1 kg 93.2 kg Weight Measurement Method [facility]
[2023-08-01] MEDS: LANTUS PER UNIT CHARGE SC ONE (09:27)
[2023-08-01] MEDS: POTASSIUM CHLORIDE 40 MEQ in SODIUM CHLORIDE 0.9% 1,000 ML IV SCH (10:10)
--- NOTE | 2023-08-01 10:48 | Hospitalist Progress Note ---
Date of Service August 01, 2023 Assessment & Plan (1) DKA (diabetic ketoacidosis): Plan: 78-year-old female with past med history significant for type 2 diabetes, CKD stage III, hyperlipidemia, hypothyroidism, sleep apnea, hypertension, morbid obesity, mixed stress and urge incontinence, degenerative disc disease, history of meningioma, history of episodic tension headache, depression with anxiety, mild cognitive impairment presents with shortness of breath and found to be in DKA. Was reported to have chest pain on admission Was seen by PCP by telemedicine on 07/30/23 for cough and seems prescribed prednisone short course but patient does not remember taking prednisone. DKA On admission, labs showed AGAP 18, bicarb of 20, BG 506, K of 3.1 Patient was started on insulin drip and IVF for DKA Anion GAP has closed Transitioned off insulin drip to sq insulin HbA1c 10.3 DM educator consult Will need to provide DM education to patient and daughter as well considering patient's cognitive impairment Glycemic pharmacy on board Shortness of breath, Cough May be related to recent URI in the house per conversation between Cardiology team and daughter Chest x-ray did not show acute findings D-dimer 720 but in normal range when adjusted to age Lower extremity Doppler is negative for DVT VQ scan: Low probability for PE Remains on room air Chest pain Mildly elevated troponin EKG noted TWI in V2, I, aVL and other nonspecific TW changes TTE noted mild concentric LVH, small anteroseptal wall motion abnormality with subtle hypokinesis of the apical segment of anteroseptum, EF of 60 to 65%. Discussed patient with director of financial planning. [employer] does not think that myocardial infarction is a precipitant of DKA. I do think that DKA likely precipitated in the setting of recent steroid for respiratory illness. [employer] recommend managing conservatively based on patient's medical problems, cognitive status. Patient started on heparin drip, aspirin and home statin changed from lovastatin to rosuvastatin Hypokalemia and hypomagnesia Repleted and normalized Prolonged QTc Likely from meds Monitor for now Obesity Obstructive sleep apnea CPAP nightly ALLIE on CKD stage III Presenting creatinine 1.5 Baseline seems around 1.2-1.3 Cr down to 1.29 today Hypertension Home HCTZ on hold Depression with anxiety Resume home citalopram and bupropion Monitor QTc Sinusitis No active signs of active bacterial infection at this time Stop Augmentin and monitor Supportive care Hypothyroidism On Synthroid Hyperlipidemia On statin DVT prophylaxis Lovenox Disposition Telemetry Full code I spent a total of 50 minutes coordinating, documenting and providing care for this patient excluding time spent in performance of separately billed services Admission and Anticipated Discharge Date Admission Date: July 31, 2023 Subjective Patient seen and examined. Patient is alert and oriented to person and place only. Patient is a very poor historian and does not recall what brought her to the hospital. Currently denies any complaints at all. Denied chest pain or shortness of breath She reports some cough When asked about chest pain on admission, she stated she may have had chest pain but could not describe/xterize it Physical Exam Constitutional: + well hydrated; no acute distress Eyes: PERRL, conjunctivae normal, anicteric sclerae Respiratory: normal respiratory effort; no respiratory distress Diminished breath sounds Cardiovascular: Rate/Rhythm: regular rate and regular rhythm S1 S2 Gastrointestinal (Abdomen): normal bowel sounds, soft, nontender, no hepatosplenomegaly Musculoskeletal: No pedal edema Neurologic: PERRL, EOMI, accommodation nl, no face palsy, no dysarthria Psychiatric: Orientation: alert, oriented to person, oriented to place and cooperative; + not oriented to time Results & Data Results & Data Vital Signs (Past 12 Hours) Vital Signs Temp Pulse Pulse Resp BP BP BP 08/01/23 09:12 08/01/23 09:09 78 08/01/23 08:10 36.4 C L 75 19 118/72 08/01/23 04:23 70 22 08/01/23 03:30 36.4 C L 68 20 126/81 08/01/23 01:39 08/01/23 01:04 36.7 C 85 22 114/78 08/01/23 00:00 80 07/31/23 22:53 89 24 149/94 H Pulse Ox O2 Del Method 08/01/23 09:12 Room Air 08/01/23 09:09 08/01/23 08:10 97 Room Air 08/01/23 04:23 99 Room Air 08/01/23 03:30 100 Room Air 08/01/23 01:39 Room Air 08/01/23 01:04 98 Room Air 08/01/23 00:00 07/31/23 22:53 100 Room Air Laboratory Results Abnormal lab results 07/31/23 07/31/23 07/31/23 Range/Units 17:50 19:32 19:54 WBC 4.69 L (4.8-10.8) K/ul MCV 78.8 L (80.0-100.0) fL Lymph # (Auto) 0.59 L (1.20-3.40) K/uL D-Dimer 720 H* (0-500) ug/L FEU VBG pH (7.36-7.41) VBG pCO2 (38-50) mmHg Sodium 132 L (136-145) mmol/L Potassium 3.1 L (3.5-5.1) mmol/L Chloride 94 L (98-107) mmol/L Carbon Dioxide 20 L (21-32) mmol/L Anion Gap 18 H (3-11) BUN 27 H (6-23) mg/dl Creatinine 1.56 H (0.6-1.2) mg/dl Glucose 506 H* (70-99(Fasting)) mg/dl POC Glucose 509 H* (70-99) mg/dl Hemoglobin A1c (4.5-5.6) % Calcium (8.6-10.3) mg/dl Phosphorus (2.5-4.9) mg/dl Magnesium 1.6 L (1.7-2.4) mg/dl AST 11 L (13-39) U/L Troponin I High Sens 18.8 H (0-14) pg/ml Urine Protein 1+ H (Negative) Urine Glucose (UA) 3+ H (Negative) Urine Ketones 2+ H (Negative) U Epithel Cells (Auto) >30 H (0-5) /lpf 07/31/23 07/31/23 07/31/23 Range/Units 20:20 21:13 22:29 WBC (4.8-10.8) K/ul MCV (80.0-100.0) fL Lymph # (Auto) (1.20-3.40) K/uL D-Dimer (0-500) ug/L FEU VBG pH 7.61 H (7.36-7.41) VBG pCO2 20 L (38-50) mmHg Sodium (136-145) mmol/L Potassium (3.5-5.1) mmol/L Chloride (98-107) mmol/L Carbon Dioxide (21-32) mmol/L Anion Gap (3-11) BUN (6-23) mg/dl Creatinine (0.6-1.2) mg/dl Glucose (70-99(Fasting)) mg/dl POC Glucose 473 H* 377 H* (70-99) mg/dl Hemoglobin A1c (4.5-5.6) % Calcium (8.6-10.3) mg/dl Phosphorus (2.5-4.9) mg/dl Magnesium (1.7-2.4) mg/dl AST (13-39) U/L Troponin I High Sens (0-14) pg/ml Urine Protein (Negative) Urine Glucose (UA) (Negative) Urine Ketones (Negative) U Epithel Cells (Auto) (0-5) /lpf 07/31/23 07/31/23 08/01/23 Range/Units 22:30 23:50 00:50 WBC (4.8-10.8) K/ul MCV (80.0-100.0) fL Lymph # (Auto) (1.20-3.40) K/uL D-Dimer (0-500) ug/L FEU VBG pH 7.55 H (7.36-7.41) VBG pCO2 (38-50) mmHg Sodium (136-145) mmol/L Potassium 3.1 L (3.5-5.1) mmol/L Chloride (98-107) mmol/L Carbon Dioxide (21-32) mmol/L Anion Gap 12 H (3-11) BUN 24 H (6-23) mg/dl Creatinine 1.45 H (0.6-1.2) mg/dl Glucose 174 H (70-99(Fasting)) mg/dl POC Glucose 392 H* 186 H (70-99) mg/dl Hemoglobin A1c (4.5-5.6) % Calcium (8.6-10.3) mg/dl Phosphorus 1.0 L* (2.5-4.9) mg/dl Magnesium (1.7-2.4) mg/dl AST (13-39) U/L Troponin I High Sens (0-14) pg/ml Urine Protein (Negative) Urine Glucose (UA) (Negative) Urine Ketones (Negative) U Epithel Cells (Auto) (0-5) /lpf 08/01/23 08/01/23 08/01/23 Range/Units 00:53 02:03 03:50 WBC (4.8-10.8) K/ul MCV (80.0-100.0) fL Lymph # (Auto) (1.20-3.40) K/uL D-Dimer (0-500) ug/L FEU VBG pH 7.60 H (7.36-7.41) VBG pCO2 (38-50) mmHg Sodium 135 L (136-145) mmol/L Potassium (3.5-5.1) mmol/L Chloride (98-107) mmol/L Carbon Dioxide (21-32) mmol/L Anion Gap 15 H (3-11) BUN (6-23) mg/dl Creatinine 1.37 H (0.6-1.2) mg/dl Glucose 276 H (70-99(Fasting)) mg/dl POC Glucose 180 H 187 H (70-99) mg/dl Hemoglobin A1c 10.3 H (4.5-5.6) % Calcium (8.6-10.3) mg/dl Phosphorus 2.1 L D (2.5-4.9) mg/dl Magnesium (1.7-2.4) mg/dl AST (13-39) U/L Troponin I High Sens 25.8 H (0-14) pg/ml Urine Protein (Negative) Urine Glucose (UA) (Negative) Urine Ketones (Negative) U Epithel Cells (Auto) (0-5) /lpf 08/01/23 08/01/23 08/01/23 Range/Units 03:53 04:54 05:57 WBC (4.8-10.8) K/ul MCV (80.0-100.0) fL Lymph # (Auto) (1.20-3.40) K/uL D-Dimer (0-500) ug/L FEU VBG pH (7.36-7.41) VBG pCO2 (38-50) mmHg Sodium (136-145) mmol/L Potassium (3.5-5.1) mmol/L Chloride (98-107) mmol/L Carbon Dioxide (21-32) mmol/L Anion Gap (3-11) BUN (6-23) mg/dl Creatinine (0.6-1.2) mg/dl Glucose (70-99(Fasting)) mg/dl POC Glucose 278 H 282 H 276 H (70-99) mg/dl Hemoglobin A1c (4.5-5.6) % Calcium (8.6-10.3) mg/dl Phosphorus (2.5-4.9) mg/dl Magnesium (1.7-2.4) mg/dl AST (13-39) U/L Troponin I High Sens (0-14) pg/ml Urine Protein (Negative) Urine Glucose (UA) (Negative) Urine Ketones (Negative) U Epithel Cells (Auto) (0-5) /lpf 08/01/23 08/01/23 08/01/23 Range/Units 07:02 07:06 08:09 WBC (4.8-10.8) K/ul MCV (80.0-100.0) fL Lymph # (Auto) (1.20-3.40) K/uL D-Dimer (0-500) ug/L FEU VBG pH (7.36-7.41) VBG pCO2 (38-50) mmHg Sodium (136-145) mmol/L Potassium (3.5-5.1) mmol/L Chloride (98-107) mmol/L Carbon Dioxide (21-32) mmol/L Anion Gap (3-11) BUN (6-23) mg/dl Creatinine 1.35 H (0.6-1.2) mg/dl Glucose 226 H (70-99(Fasting)) mg/dl POC Glucose 228 H 180 H (70-99) mg/dl Hemoglobin A1c (4.5-5.6) % Calcium 8.0 L (8.6-10.3) mg/dl Phosphorus (2.5-4.9) mg/dl Magnesium (1.7-2.4) mg/dl AST (13-39) U/L Troponin I High Sens 24.0 H (0-14) pg/ml Urine Protein (Negative) Urine Glucose (UA) (Negative) Urine Ketones (Negative) U Epithel Cells (Auto) (0-5) /lpf 08/01/23 08/01/23 Range/Units 11:35 11:58 WBC (4.8-10.8) K/ul MCV (80.0-100.0) fL Lymph # (Auto) (1.20-3.40) K/uL D-Dimer (0-500) ug/L FEU VBG pH (7.36-7.41) VBG pCO2 (38-50) mmHg Sodium (136-145) mmol/L Potassium (3.5-5.1) mmol/L Chloride (98-107) mmol/L Carbon Dioxide (21-32) mmol/L Anion Gap (3-11) BUN (6-23) mg/dl Creatinine 1.29 H (0.6-1.2) mg/dl Glucose 127 H (70-99(Fasting)) mg/dl POC Glucose 142 H (70-99) mg/dl Hemoglobin A1c (4.5-5.6) % Calcium 8.3 L (8.6-10.3) mg/dl Phosphorus (2.5-4.9) mg/dl Magnesium (1.7-2.4) mg/dl AST (13-39) U/L Troponin I High Sens 22.4 H (0-14) pg/ml Urine Protein (Negative) Urine Glucose (UA) (Negative) Urine Ketones (Negative) U Epithel Cells (Auto) (0-5) /lpf
--- NOTE | 2023-08-01 10:57 | Communication Note ---
Date of Service: August 01, 2023 I called and personally spoke with patient daughter this morning around 10:45 AM, after obtaining permission from the patient. Daughter notes that she, and her 2 children, moved in with her mother around the beginning of the year. Daughter is aware of patient's short-term memory issues. Daughter notes that the flu passed through their home just before spring with patient getting it, experiencing a cough and chest congestion, increased fatigue and feeling very rundown. She was prescribed a course of Augmentin and did initiate prednisone. No overt chest pain/discomfort noted by the daughter.
[2023-08-01] MEDS: ASPIRIN 81 MG ECTAB PO SCH (11:22)
[2023-08-01] MEDS: METOPROLOL SUCC 25MG EXT REL TAB PO SCH (11:22)
--- NOTE | 2023-08-01 11:36 | Nuclear Medicine Report ---
NUCLEAR MEDICINE PERFUSION STUDY CLINICAL HISTORY: Shortness of breath, elevated d dimer. PE? COMPARISON STUDY: Chest radiograph July 31, 2023. TECHNIQUE: Nuclear medicine perfusion study was performed following intravenous injection of 5.08 mCi of technetium 99m MAA at 11:00 AM on August 01, 2023. Imaging of the chest was performed in multiple projections following radiotracer injection. No ventilation imaging was performed given the ventilati on precautions. FINDINGS: No perfusion defects are identified on this examination. There is normal distribution of ra diotracer on perfusion study. IMPRESSION: No perfusion defects identified. Low probability for pulmonary embolus. ACT 112: Negative or not required by law. Electronically signed by: Nelson Jacob M.D. 08/01/2023 11:35 AM
[2023-08-01 12:05] LABS: BUN Creatinine Ratio 16.3 (10-20); Calcium 8.3 mg/dl (8.6-10.3); Est GFR (African American) 46.3 ml/min; Est GFR (Non-African American) 39.9 ml/min; Magnesium 2.1 mg/dl (1.7-2.4); Phosphorus 3.7 mg/dl (2.5-4.9); Potassium 4.1 mmol/L (3.5-5.1)
[2023-08-01 12:11] LABS: Troponin I High Sensitivity 22.4 pg/ml (0-14)
--- NOTE | 2023-08-01 12:19 | Pharmacy Report ---
Pharmacy Glycemic Short Note 2 - Date of Service August 01, 2023 - Glycemic Short BSG Results (Last 24 hours): 07/31/23 07/31/23 07/31/23 17:50 19:54 21:13 Glucose 506 H* POC Glucose 509 H* 473 H* 07/31/23 07/31/23 07/31/23 22:29 22:30 23:50 Glucose POC Glucose 377 H* 392 H* 186 H 08/01/23 08/01/23 08/01/23 00:50 00:53 02:03 Glucose 174 H POC Glucose 180 H 187 H 08/01/23 08/01/23 08/01/23 03:50 03:53 04:54 Glucose 276 H POC Glucose 278 H 282 H 08/01/23 08/01/23 08/01/23 05:57 07:02 07:06 Glucose 226 H POC Glucose 276 H 228 H 08/01/23 08/01/23 08/01/23 08:09 09:00 11:35 Glucose 127 H POC Glucose 180 H 91 08/01/23 11:58 Glucose POC Glucose 142 H OUTPATIENT ANTIDIABETIC REGIMEN: * Lantus 30 units SC HS * Januvia 50 mg PO QAM * Trulicity 0.75 mg SC weekly * Apidra insulin HbA1C= 10.3% on 08/01/23 ASSESSMENT: * 78 y/o F admitted for DKA. History of Type 2 diabetes managed on above home meds. Also with history of CKD -stage 3. * On admission, BSG was 509 mg/dl, insulin drip was started last night. BSGs trended down to 180 mg/dl and lower this morning. Gap was closed and other labs WNL. Basal dose 20 units x1 given this AM (between stress of 2 and 3). Insulin drip discontinued. * IV fluids changed to remove dextrose. * Pre-lunch BSG = 142 mg/dl. Novolog parameters ordered based on stress between 2 and 3. * Basal dose scale added at HS in case BSGs trended up. Also added overnight checks. * Currently patient is still NPO. PLAN FOR INPATIENT GLYCEMIC CONTROL: * Hold outpatient diabetes medications * Basal insulin * Lantus 20 units SQ x 1 given today AM. Re-assess dosing tomorrow. * Lantus 0/5/10 units dose scale ordered for HS based on BSG. * Bolus insulin * NovoLog per scale ACHS or Q6hrs while NPO * Goal Range: Low 110 mg/dL - High 140 mg/dL * Correction Factor: 20 mg/dL/unit * Nutritional / Prandial insulin per carb ratio of 1 unit per 7 grams CHO consumed
[2023-08-01] MEDS: HEPARIN SODIUM/DEXTROSE 25,000 UNITS/500 ML BAG IV SCH (13:52)
[2023-08-01] MEDS: Heparin IV Adult Wt-Based Standard *NO* INITIAL Bolus Protocol IV STA (13:52)
[2023-08-01] MEDS: LANTUS PER UNIT CHARGE SC SCH (20:43)
[2023-08-01 20:49] LABS: ANTI-Xa, UFH(UnfractionatedHep 0.93 IU/ml (0.3-0.7)
[2023-08-01] MEDS ORDERED: LOVASTATIN 20 MG TAB PO SCH (21:00)
[2023-08-01] MEDS ORDERED: PENDING D5 1/2NS+20mEq KCL IVF ONE (23:50)
[2023-08-02] MEDS: INSULIN ASPART PER UNIT CHARGE SC SCH (00:02)
--- OUTSIDE RECORDS SUMMARY | 2023-08-02 00:10 | External Medical Summary | Summary of Care ---
Author Name Unknown Organization [facility] Address [address] [place] [address] Phone [phone] Care Team Providers Care Insurance Executive Name Role Phone Hi Mcdaniels MD Primary Care Provider [phone] Reason for Visit * Reason Comments eRx-Medication Refill Encounter Details Date Type Department Care Team (Late st Contact Info) Description 05/23/2023 Refill [facility] Practice [facility] [address] [facility] [address] Hi Mcdaniels MD [address] [facility] [place] [id number] Type 2 diabetes mellitus with hemoglobin A1c goal of 7.0%-8.0% ([facility]) Allergies Active Allergy Reactions Criticality Noted Date Comments Adhesive Tape 03/04/2021 Other reaction(s): SKIN IRRITATIONS Atorvastatin 07/03/2017 Bad dreams Nitrofurantoin Low 08/13/2021 Other reaction(s): Gastrointestinal Upset, GI Upset Nitrofurantoin Monohydrate Macrocrystals 06/10/1997 GI sens. documented as of this encounter (statuses as of 06/10/2023) Medications Medication Sig Dispensed Refills Start Date End Date Status Multiple Vitamins-Mineral s (SENIOR MULTIVITAMIN PLUS) Tab Take 1 Tab by mouth every other day. 0 Active CPAP every night at bedtime . 0 Active Diclofenac Sodium 1 % External Gel (Voltaren)Indica tions:Quadriceps strain, left, subsequent encounter APPLY TOPICALLY TO AFFECTED AREA 2 TIMES A DAY. APPLY TO KNEES 200 g 3 2 Active OneTouch Verio w/Device KitIndications:T ype 2 diabetes mellitus with hemoglobin A1c goal of less than 8.0% (HCC) Use up to 3 times a day E11.9 1 Kit 0 2 Active Glucose Blood In Vitro Strip Use up to 4 times daily to test blood sugar Dx: E11.9 100 Strip 11 2 Active Fluticasone Propionate 50 MCG/ACT Nasal SuspensionIndica tions:Viral URI with cough,Post-nasal drip Administer 2 Sprays into each nostril in the morning. 1 Each 1 2 Active Proventil HFA 108 (90 Base) MCG/ACT Inhalation Aerosol SolutionIndicati ons:Viral URI with cough Inhale 2 Puffs by mouth every 4 hours as needed for Congestion or Wheezing. 18 g 1 2 Active Vitamin D3 25 MCG Oral Tablet Take 1 Tablet by mouth in the morning. 30 Tablet 0 3 Active Cyanocobalamin 1000 MCG Oral Tablet (Cyanocobalamin) Take 1 Tablet by mouth in the morning. 30 Tablet 0 3 Active Insulin Syringe 30G X 1/2" 0.5 MLIndications:DM type 2, not at goal ([facility]) Use as directed to administer insulin up to four times daily. Dx code E11.9 100 Each 3 3 Active Lovastatin 40 MG Oral Tablet TAKE 1 TABLET BY MOUTH EVERYDAY AT BEDTIME 90 Tablet 1 3 Active Citalopram Hydrobromide 40 MG Oral Tablet (CeleXA)Indicati ons:Recurrent major depressive disorder, in full remission (HCC) TAKE 1 TABLET BY MOUTH EVERY DAY IN THE MORNING 90 Tablet 3 3 Active Gabapentin 100 MG Oral Capsule (Neurontin)Indic ations:New onset of headaches after age 50 TAKE 2 CAPSULES TWICE DAILY 120 Capsule 5 3 Active Levothyroxine Sodium 100 MCG Oral Tablet (Levoxyl)Indicat ions:Hypothyroid ism due to acquired atrophy of thyroid TAKE 1 TABLET BY MOUTH EVERY DAY AT LEAST 30 MIN BEFORE BREAKFAST OR OTHER MEDICATION 90 Tablet 3 3 Active buPROPion HCl ER (XL) 150 MG Oral Tablet Extended Release 24 Hour (Wellbutrin XL) TAKE 1 TABLET (150 MG) BY MOUTH IN THE MORNING. 90 Tablet 3 3 Active hydroCHLOROthiaz marielena 25 MG Oral Tablet (Hydrodiuril)Ind ications:Dorcas al (primary) hypertension TAKE 1 TABLET BY MOUTH EVERY DAY IN THE MORNING 90 Tablet 3 3 Active Insulin Glargine-yfgn 100 UNIT/ML Subcutaneous SolutionIndicati ons:Type 2 diabetes mellitus with hemoglobin A1c goal of less than 8.0% (HCC),Type 2 diabetes mellitus with stage 3b chronic kidney disease, with long-term current use of insulin ([facility]) INJECT 30 UNITS SUBCUTANEOUSLY AT BEDTIME 30 mL 5 3 Active BD Insulin Syringe U/F 30G X 1/2" 0.3 ML (Insulin Syringe-Needle U-100)Indication s:DM type 2, not at goal ([facility]) USE DIRECTED TO ADMINISTER INSULIN UP TO FOUR TIMES DAILY. DX CODE E11.9 400 Each 3 4 Active MaxLinearuch Ultra In Vitro Strip (Glucose Blood) Use up to 4 times a day to test blood sugar Dx: E11.9 100 Strip 11 3 06/07/19 24 Discontinued documented as of this encounter (statuses as of 06/10/2023) Active Problems Problem Noted Date Diagnosed Date Mild cognitive impairment 03/17/2023 Episodic tension-type headache, not intractable 02/24/2023 Depression with anxiety 10/09/2022 Mixed stress and urge urinary incontinence 07/24 Meningiomas, multiple 10/26/2021 DDD (degenerative disc disease), lumbar 10/26/19 22 Type 2 diabetes mellitus wit h stage 3b chronic kidney disease, with long-term current use of insulin 09/26/2020 Overview: Per CKD protocol Type 2 diabetes mellitus wit h hemoglobin A1c goal of less than 8.0% 08/21/2020 Stage 3b chronic kidney disease 01/16/2018 Overview: Per CKD protocol HTN, goal below 130/80 07/24/2015 Overview: Per HTN Protocol #27. Hypothyroidism due to acquired atrophy of thyroi d 12/06/2014 VIRGIL (obstructive sleep apnea) 08/03/2014 Morbid obesity 08/15/2009 Overview: Per Obesity Taxonomy ICD-10 update of inactive term Dyslipidemia 04/27/2009 Overview: Per Lipid Taxonomy. Vitamin D deficiency 03/24/2009 DDD (degenerative disc disease), cervical 2008 documented as of this encounter (statuses as of 06/10/2023) Resolved Problems Problem Noted Date Diagnosed Date Resolved Date S/P total knee arthroplasty, left 11/15/2021 10/09/2022 Primary osteoarthritis of both knees 06/13/2021 11/27/2021 Acute right-sided low back p ain with right-sided sciatica 05/02/2021 06/13/2021 Body mass index (BMI) of 40. 0 to 44.9 in adult 04/30/2021 06/13/2021 Overview: Per Obesity protocol - Chronic kidney disease, stage 3b 10/31/2020 03/13/2021 Overview: Per CKD protocol Benign hypertension with sta ge 3b chronic kidney disease 09/26/2020 03/26/2021 Overview: Per CKD protocol Recurrent major depressive d isorder, in full remission 08/21/2020 10/09/2022 Rash 01/13/2020 08/21/2020 History of nonmelanoma skin cancer 10/18/2018 08/21/2020 Current use of insulin 07/30/201808/22 Type 2 diabetes mellitus wit h stage 3 chronic kidney disease, with long-term current use of insulin 01/16/2018 09/28/2020 Overview: Per CKD protocol Body mass index (BMI) of 45. 0 to 49.9 in adult 02/17/2017 05/03/2021 Overview: Per Obesity protocol #1 DM type 2 causing renal disease 12/06/2014 12/06/2014 Type 2 diabetes mellitus wit h diabetic chronic kidney disease 12/06/2014 03/13/2021 Sciatica 03/24/2014 07/30/2018 Type 2 diabetes mellitus wit h hemoglobin A1c goal of 7.0%-8.0% 03/24/2014 08/21/2020 Overview: ICD-10 update of inactive term Kidney disease, chronic, sta ge III (GFR 30-59 ml/min) 07/12/2013 03/02/2018 Overview: Per CKD protocol #1 DM type 2 causing renal disease 08/14/2012 12/06/2014 HTN, GOAL BELOW 140/80 01/06/201208/23 Overview: Per HTN Protocol #27. Displacement of lumbar inter vertebral disc without myelopathy 02/11/2011 10/25/2021 Body mass index (BMI) of 40.0-44.9 in adult 04/10/2010 04/10/2010 Overview: ICD-10 update of inactive term Body mass index (BMI) of 40.0-44.9 in adult 04/10/2010 02/20/2017 Overview: Per Obesity protocol #1 HTN, GOAL BELOW 130/80 06/14/200901/08 Overview: Per HTN Taxonomy. DM type 2, not at goal 02/26/200808/14 ADVANCE DIRECTIVE INFORMATION 12/20/2005 08/21/2020 Overview: Pt took booklet. HYPOTHYROIDISM NOS 06/20/2005 5 Chronic rhinitis 06/02/2003 08/21/2020 PURE HYPERCHOLESTEROLEM 06/13/199904/18 Overview: Per Lipid Taxonomy. FEM STRESS INCONTINENCE 03/19/1999 04/0 09/2020 Menopause 03/19/1999 08/21/2020 Other specified glaucoma 12/26/199801/2015 Proteinuria 10/20/1998 08/22/2020 OBESITY, UNSPECIFIED 08/29/1998 010 Overview: Per Obesity Taxonomy ADJ DISORDER W/DEPRES MOOD 09/09/1997 0 08/21/2020 Other allergic rhinitis 09/09/199706/2016 Overview: ICD-10 update of inactive term HTN, goal below 140/90 09/09/199706/14 Overview: Per HTN Taxonomy. Type 2 diabetes mellitus wit h hemoglobin A1c goal of less than 7.0% 09/09/1997 08/14/2012 Overview: ICD-10 update of inactive term documented as of this encounter (statuses as of 06/10/2023) Immunizations Name Administration Dates Next Due COVID-19 mRNA, LNP-s, No Pre serve, 2-Dose Series ([employer]) 02/16/2021,08/05/2020,07/15/2020 Covid-19, Mrna, Lnp-s, Pf, B ivalent, 30 Mcg, IM, 12 yrs and above ([employer]) 03/12/2022 H1N1 2009 Influenza, IM 07/04/2009 Pneumococcal Conjugate Vacc, 13 Valent (Prevnar) 11/16/2015 Pneumococcal Conjugate Vacci ne, 7 Valent 12/22/2005 Pneumococcal Polysaccharide PPV23 (Pneumovax) 08/11/2013,12/22/2005 Season Influenza, Quad, PF, Adjuvanted, 65+ Yrs, IM (FLUAD) 01/25/2020 Seasonal Influenza Virus Vac cine, Unspecified Formulation 01/26/2021,01/25/2020,01/29/2019,01/31,02/17/2017,01/31/2016,02/07/2014 ,01/29/2013,03/25/2012,02/20/2011,08/2009,03/03/2009,03/09/2008, 7,04/07/2006,04/04/2003 Seasonal Influenza, PF, 6 M & above, IM , (FluLaval or Fluzone) 02/17/2017 Seasonal Influenza, Quadriva lent Hd (Fluzone Hd) 01/24/2023,01/25/2022 Seasonal Influenza, Quadriva lent, No Preserve, IM 01/31/2018,01/31/2016 Seasonal Influenza, Split, I IV3, With Preserve, Inj 02/07/2015,02/07/2014,01/29/2013,03/25,02/20/2011,02/19/2010,03/03/2009 ,03/09/2008,02/24/2007,04/07/2006,03/19 Seasonal Influenza, Trivalen t, Adjuvanted, 65+ yrs 01/29/2019 Seasonal Influenza, Trivalen t, High Dose, No Preserve, IM 01/21/2018 TD - Tetanus/Diptheria (ADULT) 04/04/2003 TDAP (age 11 and older)(Adacel) 04/19/2011 Varicella Zoster Vaccine (Adult) 01/16/2011 Zoster Vaccine Recombinant (Shingrix) 04/30/2019 ,11/23/2018 documented as of this encounter Social History Tobacco Use Types Packs/Day Years Used Date Smoking Tobacco: Never Smokeless Tobacco: Never Alcohol Use Standard Drinks/Week Comments No 0 (1 standard drink = 0.6 oz pur e alcohol) PHQ-2 Answer Date Recorded PHQ Adult Total Score 1 01/27/2023 Hunger Vital Sign Answer Date Recorded Within the past 12 months, y ou worried that your food would run out before you got the money to buy more. Never true 10/05/19 23 Within the past 12 months, t he food you bought just didn't last and you didn't have money to get more. Never true 10/04/2022 Sex and Gender Information Value Date Recorded Sex Assigned at Female 01/13/2020 10:57 AM EDT Gender Identity Female 01/13/2020 10:57 AM EDT Sexual Orientation Straight 01/13/2020 10 :57 AM EDT Job Start Date Occupation Industry Not on file Not on file Not on file documented as of this encounter Miscellaneous Notes * Telephone Encounter - Marco Antonio Romero, [facility] - 06/10/2023 4:35 PM EST Spoke with patient regarding recent refill request: Patient stated that she is no longer using Apidra, and does not need a refill. Patient claims that she got Lantus pens from [facility] but is accustomed to using vials. Last prescription sent in 05/01/2023 was for vials. Called [facility] for more information and they confirmed that they last dispensed insulin vials to the patient, and don't have a record of dispensing pens. Unsure where patient procured Lantus Pen from, sending to [facility] as , patient has upcoming appointment on 06/12 Thank you, Marco Antonio Romero, PharmD Clinical Pharmacist [facility] ([facility]) (Formerly Telepharmacy) [phone] 06/10/2023, 4:44 PM * Telephone Encounter - Mena Grigsby CPhT - 06/10/2023 4:29 PM EST Patient calling to ask why Apidra was refused for refill Thank you, Mena Grigsby Party Coordinator II [facility] ([facility]) (formerly Telepharmacy) 06/10/2023 4:30 PM * Telephone Encounter - Hawa Franz [facility] - 05/25/2023 7:54 PM ESTRefused Prescriptions: Disp Refills Apidra 100 UNIT/ML Injection Solution (Ins*10 mL 1 Sig: INJECT 3 UNITS SUBCUTANEOUSLY IF BS 100-150, 5 UNITS IF BS 150-200, 7 UNITS IF 200-250, 10 UNITS IF > 250 FOR SUPPERRefused By: HAWA FRANZNReason for Refusal: Course of treatment complete documented in this encounter Plan of Treatment Upcoming Encounters Date Type Department Care Team (Late st Contact Info) Description 06/12/2023 9:00 AM EST Office Visit Pharmacy, [address] [place] [address] [place] [facility] [place] [facility] [place] [address] 07/25/2023 10:00 AM EST [facility] [address] [facility] [place] [phone] Patrica Adorno DO [address] [place] [address] 07/28/2023 10:20 AM EDT Office Visit Family Practice [facility] [address] [facility] [place] [address] Hi Mcdaniels MD [address] [facility] [place] [address] 09/29/2023 9:45 AM EDT Office Visit Dermatology [facility] [place] [address] [place] [address] Orestes Slaughter MD 200 [facility] [place] [address] 12/02/2023 2:00 PM EDT Telemedicine Neurosurgery, [place] [address] [place] [address] Zackary Nash MD [address], [place] [phone] 01/15/2024 10:20 AM EDT Office Visit Nephrology, [facility] [address] [place] [address] Colleen Acosta MD 200 [facility] [place] [address] 01/30/2024 8:30 AM EDT Nurse Only Ancillary [facility] [address] [facility] [place] [address] [place], Nurse Annual Wellness [facility] [address] [facility] [place] [address] Scheduled Procedures Name Priority Associated Diagnoses Date/Ti me COLONOSCOPY FLEXIBLE PROXIMAL DIAGNOSTIC Recall History of colon polyps Health Maintenance Due Date Last Done Comments Hepatitis B (1 of 3 - Risk 3-dose series) 2006 DTaP,Tdap,and Td Vaccines (2 - Td or Tdap) 04/19/2021 04/19/2011, 04/04/2003 COLONOSCOPY-EVERY 3 YRS AGES 18-100 11/03/2021 11/03/2018, 04/19/2008 Albumin/Creatinine Ratio 07/15/2023 023, 05/08/2022, 12/18/2020, Additional history exists CKD HGB USE SMARTSET 02078 07/15/202307/15, 11/20/2021, 11/16/2021, Additional history exists Diabetic Foot Exam 07/25/2023 07/24/2022, 0 11/06/2020, 11/25/2019, Additional history exists GFR 07/28/2023 01/27/2023, 06/20, 05/08/2022, Additional history exists HbA1c 08/19/2023 02/17/2023, 09/17, 07/15/2022, Additional history exists TSH 10/10/2023 10/09/2022, 07/17, 06/13/2021, Additional history exists Depression Screening 01/28/2024 01/27/2023 Diabetic Eye Exam 02/22/2024 02/21/2023, , 02/05/2021, Additional history exists CKD PHOS USE SMARTSET 48712 03/04/202402/16, 07/15/2022, 12/18/2020, Additional history exists DXA Scan 11/28/2028 11/29/2019, 01/18, 02/08/2013, Additional history exists Pneumococcal Vaccine: 65+ Years Completed 11/16/2015, 08/11/2013, 12/22/2005 Zoster Vaccines Completed 04/30/2019, 07/0 12/2018, 01/16/2011 COVID-19 Vaccine Completed 04/19/2023, , 02/16/2021, Additional history exists Influenza Vaccine (FLU shot) Completed 06/2022, 01/24/2023, 01/25/2022, Additional history exists GARDASIL-HPV IMMUNIZATION SERIES Aged Out No longer eligible based on patient's age to complete this topic MENINGOCOCCAL (MENACTRA/MENVEO) Aged Out No longer eligible based on patient's age to complete this topic documented as of this encounter Medical Devices Not on filedocumented as of this encounter Visit Diagnoses Diagnosis Type 2 diabetes mellitus with hemoglobin A1c goal of 7.0%-8.0% ([facility]) documented in this encounter Care Teams Insurance Executive Relationship Specialty Start Date End Date Hi Mcdaniels MD [address] [place] [address] PCP - General Family Medicine 10/26/21 documented as of this encounter
--- OUTSIDE RECORDS SUMMARY | 2023-08-02 00:10 | External Medical Summary | Summary of Care ---
Author Name Unknown Organization [facility] Address [address] [place] [address] Phone [phone] Care Team Providers Care Neuropsychology Director Name Role Phone Marko Mcdaniels MD Primary Care Provider [phone] Reason for Visit * Reason Comments eRx-Medication Refill Encounter Details Date Type Department Care Team (Late st Contact Info) Description 06/06/2023 Refill Family Practice [facility] [address] [place] [address] Marko Mcdaniels MD [address] [facility] [place] [phone] Allergies Active Allergy Reactions Criticality Noted Date Comments Adhesive Tape 03/04/2021 Other reaction(s): SKIN IRRITATIONS Atorvastatin 07/03/2017 Bad dreams Nitrofurantoin Low 08/13/2021 Other reaction(s): Gastrointestinal Upset, GI Upset Nitrofurantoin Monohydrate Macrocrystals 06/10/1997 GI sens. documented as of this encounter (statuses as of 06/07/2023) Medications Medication Sig Dispensed Refills Start Date [...] 0.5 MLIndications:DM type 2, not at goal ([facility]) Use as directed to administer insulin [...] hydroCHLOROthiaz marielena 25 MG Oral Tablet (Hydrodiuril)Ind ications:Essenti al (primary) hypertension TAKE 1 TABLET BY MOUTH EVERY DAY IN THE MORNING 90 Tablet 3 3 Active Insulin Glargine-yfgn 100 UNIT/ML Subcutaneous SolutionIndicati ons:Type 2 diabetes mellitus with hemoglobin A1c goal of less than 8.0% ([facility]),Type 2 diabetes mellitus with stage 3b chronic kidney disease, with long-term current use of insulin ([facility]) INJECT 30 UNITS SUBCUTANEOUSLY AT BEDTIME 30 mL 5 3 Active BD Insulin Syringe U/F 30G X 1/2" 0.3 ML (Insulin Syringe-Needle U-100)Indication s:DM type 2, not at goal ([facility]) USE DIRECTED TO ADMINISTER INSULIN UP TO FOUR TIMES DAILY. DX CODE E11.9 400 Each 3 4 Active OneTouch Ultra In Vitro Strip (Glucose Blood) USE UP TO 4 TIMES A DAY TO TEST BLOOD SUGAR DX: E11.9 100 Strip 5 4 Active OneTouch Ultra In Vitro Strip (Glucose Blood) Use up to 4 times a day to test blood sugar Dx: E11.9 100 Strip 11 3 06/07/19 24 Discontinued documented as of this encounter (statuses as of 06/07/2023) Active Problems Problem Noted Date Diagnosed Date [...] as of this encounter (statuses as of 06/07/2023) Resolved Problems Problem Noted Date Diagnosed Date [...] as of this encounter (statuses as of 06/07/2023) Immunizations Name Administration Dates Next Due COVID-19 mRNA, LNP-s, No Pre serve, 2-Dose Series ([employer]) 02/16/2021,08/05/2020,07/15/2020 Covid-19, Mrna, Lnp-s, Pf, B ivalent, 30 Mcg, IM, 12 yrs and above ([employer]) 03/12/2022 H1N1 2009 Influenza, IM 07/04/2009 Pneumococcal [...] Split, I IV3, With Preserve, Inj 02/07/2015,02/07/2014,01/29/2013,03/25,02/20/2011,02/19/2010,03/03/2009 ,03/09/2008,02/24/2007,04/07/2006 Seasonal Influenza, Trivalen t, Adjuvanted, 65+ yrs 01/29/2019 Seasonal Influenza, Trivalen t, High Dose, No Preserve, IM 01/21/2018 TDAP (age 11 and older)(Adacel) 04/19/2011 Varicella [...] encounter Miscellaneous Notes * Telephone Encounter - Moe Lassiter, [facility] - 06/07/2023 6:23 AM ESTSigned Prescriptions: Disp Refills OneTouch Ultra In Vitro Strip (Glucose Blo*[address] St*5 Sig: USE UPTO 4 TIMES A DAY TO TEST BLOOD SUGAR DX: E11.9Authorizing Provider: MARKO MCDANIELS User: MOE LASSITER documented in this encounter Plan of Treatment Upcoming Encounters Date Type Department Care Team (Late st Contact Info) Description 06/12/2023 9:00 AM EST Office Visit Pharmacy, [facility] 132 [facility] [place] [address] [facility] [address] [facility] [place] [address] 07/25/2023 10:00 AM EST Office Visit Sleep Disorders Ctr [facility] [address] [facility] [place] [phone] Patrica Adorno DO [address] [facility] [place] [address] 07/28/2023 10:20 AM EDT Office Visit Family Practice [facility] [address] [place] [address] Marko Mcdaniels MD [address] [facility] [place] [address] 09/29/2023 9:45 AM EDT Office Visit Dermatology [facility] [address] [facility] [place] [address] Orestes Slaughter MD 200 [place] [address] 12/02/2023 2:00 PM EDT Telemedicine Neurosurgery, [place] [address] [place] [address] Zackary Nash MD [address] [place], [place] [phone] 01/15/2024 10:20 AM EDT Office Visit Nephrology, [place] [facility] [place] [address] Colleen Acosta MD 200 [facility] [place] [address] 01/30/2024 8:30 AM EDT Nurse Only Ancillary [facility] [address] [facility] [place] [address] [place], Nurse Annual Wellness [facility] [address] [facility] [place] [address] Scheduled Procedures Name Priority Associated Diagnoses Date/Ti [...] Additional history exists CKD HGB USE SMARTSET 84592 07/15/202307/15, 11/20/2021, 11/16/2021, Additional history exists Diabetic Foot Exam 07/25/2023 07/24/2022, 0 11/06/2020, 11/25/2019, Additional history exists GFR 07/28/2023 01/27/2023, 06/20, 05/08/2022, Additional history exists HbA1c 08/19/2023 02/17/2023, 09/17, 07/15/2022, Additional history exists TSH 10/10/2023 10/09/2022, 07/17, 06/13/2021, Additional history exists Depression Screening 01/28/2024 01/27/2023 Diabetic Eye Exam 02/22/2024 02/21/2023, , 02/05/2021, Additional history exists CKD PHOS USE SMARTSET 49075 03/04/202402/16, 07/15/2022, 12/18/2020, Additional history exists DXA Scan 11/28/2028 11/29/2019, 01/18, 02/08/2013, Additional history exists Pneumococcal Vaccine: 65+ Years Completed 11/16/2015, 08/11/2013, 12/22/2005 Zoster Vaccines Completed 04/30/2019, 12/2018, 01/16/2011 COVID-19 Vaccine Completed 04/19/2023, , [...] Not on filedocumented as of this encounter Care Teams Neuropsychology Director Relationship Specialty Start Date End Date Marko Mcdaniels MD [address] [place] [address] PCP - General Family Medicine 10/26/21 documented as of this encounter
--- OUTSIDE RECORDS SUMMARY | 2023-08-02 00:10 | External Medical Summary | Summary of Care ---
Author Name Unknown Organization [facility] Address [address] [place] [address] Phone [phone] Care Team Providers Care Cook Helper Preserves Name Role Phone Hi Mcdaniels MD Primary Care Provider [phone] Encounter Details Date Type Department Care Team (Late st Contact Info) Description 04/22/2023 Telephone Family Practice [facility] [address] [place] [address] Hi Mcdaniels MD [address] [place] [address] Allergies Active Allergy Reactions Criticality Noted Date Comments Adhesive Tape 03/04/2021 Other reaction(s): SKIN IRRITATIONS Atorvastatin 07/03/2017 Bad dreams Nitrofurantoin Low 08/13/2021 Other reaction(s): Gastrointestinal Upset, GI Upset Nitrofurantoin Monohydrate Macrocrystals 06/10/1997 GI sens. documented as of this encounter (statuses as of 07/22/2023) Medications Medication Sig Dispensed Refills Start Date End Date Status Multiple Vitamins-Minerals (SENIOR MULTIVITAMIN PLUS) Tab Take 1 Tab by mouth every other day. 0 Active CPAP every night at bedtime . 0 Active Diclofenac Sodium 1 % External Gel (Voltaren)Indicatio ns:Quadriceps strain, left, subsequent encounter APPLY TOPICALLY TO AFFECTED AREA 2 TIMES A DAY. APPLY TO KNEES 200 g 3 08/23/2021 Active OneTouch Verio w/Device KitIndications:Type 2 diabetes mellitus with hemoglobin A1c goal of less than 8.0% ([facility]) Use up to 3 times a day E11.9 1 Kit 0 03/11/2022 Active Glucose Blood In Vitro Strip Use up to 4 times daily to test blood sugar Dx: E11.9 100 Strip 11 03/18/2022 Active Fluticasone Propionate 50 MCG/ACT Nasal SuspensionIndicatio ns:Viral URI with cough,Post-nasal drip Administer 2 Sprays into each nostril in the morning. 1 Each 1 04/02/2022 Active Proventil HFA 108 (90 Base) MCG/ACT Inhalation Aerosol SolutionIndications :Viral URI with cough Inhale 2 Puffs by mouth every 4 hours as needed for Congestion or Wheezing. 18 g 1 04/02/2022 Active Vitamin D3 25 MCG Oral Tablet Take 1 Tablet by mouth in the morning. 30 Tablet 0 08/14/2022 Active Cyanocobalamin 1000 MCG Oral Tablet (Cyanocobalamin) Take 1 Tablet by mouth in the morning. 30 Tablet 0 08/14/2022 Active Insulin Syringe 30G X 1/2" 0.5 MLIndications:DM type 2, not at goal ([facility]) Use as directed to administer insulin up to four times daily. Dx code E11.9 100 Each 3 12/05/2022 Active Lovastatin 40 MG Oral Tablet TAKE 1 TABLET BY MOUTH EVERYDAY AT BEDTIME 90 Tablet 1 03/20/2023 Active Citalopram Hydrobromide 40 MG Oral Tablet (CeleXA)Indications :Recurrent major depressive disorder, in full remission (HCC) TAKE 1 TABLET BY MOUTH EVERY DAY IN THE MORNING 90 Tablet 3 04/08/2023 Active Gabapentin 100 MG Oral Capsule (Neurontin)Indicati ons:New onset of headaches after age 50 TAKE 2 CAPSULES TWICE DAILY 120 Capsule 5 04/08/2023 Active Levothyroxine Sodium 100 MCG Oral Tablet (Levoxyl)Indication s:Hypothyroidism due to acquired atrophy of thyroid TAKE 1 TABLET BY MOUTH EVERY DAY AT LEAST 30 MIN BEFORE BREAKFAST OR OTHER MEDICATION 90 Tablet 3 04/08/2023 Active buPROPion HCl ER (XL) 150 MG Oral Tablet Extended Release 24 Hour (Wellbutrin XL) TAKE 1 TABLET (150 MG) BY MOUTH IN THE MORNING. 90 Tablet 3 04/08/2023 Active hydroCHLOROthiazide 25 MG Oral Tablet (Hydrodiuril)Indica tions:Essential (primary) hypertension TAKE 1 TABLET BY MOUTH EVERY DAY IN THE MORNING 90 Tablet 3 04/08/2023 Active documented as of this encounter (statuses as of 07/22/2023) Active Problems Problem Noted Date Diagnosed Date Mild cognitive impairment 03/17/2023 Episodic tension-type headache, not intractable 02/24/2023 Depression with anxiety 10/09/2022 Mixed stress and urge urinary incontinence 07/24 Meningiomas, multiple 10/26/2021 DDD (degenerative disc disease), lumbar 10/26/19 Type 2 diabetes mellitus wit h stage [...] as of this encounter (statuses as of 07/22/2023) Resolved Problems Problem Noted Date Diagnosed Date [...] Overview: Per Lipid Taxonomy. FEM STRESS INCONTINENCE 03/19/199909/2020 Menopause 03/19/1999 08/21/2020 Other specified glaucoma 12/26/199801/2015 Proteinuria 10/20/1998 08/22/2020 OBESITY, UNSPECIFIED 08/29/1998 Overview: Per Obesity Taxonomy ADJ DISORDER W/DEPRES MOOD 09/09/1997 0 08/21/2020 Other allergic rhinitis 09/09/199706/2016 Overview: ICD-10 update of inactive term HTN, goal below 140/90 09/09/199706/14 Overview: Per HTN Taxonomy. Type 2 diabetes mellitus wit h hemoglobin A1c goal of less than 7.0% 09/09/1997 08/14/2012 Overview: ICD-10 update of inactive term documented as of this encounter (statuses as of 07/22/2023) Immunizations Name Administration Dates Next Due COVID-19 mRNA, LNP-s, No Pre serve, 2-Dose Series (Helixbind) 02/16/2021,08/05/2020,07/15/2020 Covid-19, Mrna, Lnp-s, Pf, B ivalent, 30 Mcg, IM, 12 yrs and above (Helixbind) 03/12/2022 H1N1 2009 Influenza, IM 07/04/2009 Pneumococcal Conjugate Vacc, 13 Valent (Prevnar) 11/16/2015 Pneumococcal Conjugate Vacci ne, 7 Valent 12/22/2005 Pneumococcal Polysaccharide PPV23 (Pneumovax) 08/11/2013,12/22/2005 Season Influenza, Quad, PF, Adjuvanted, 65+ Yrs, IM (FLUAD) 01/25/2020 Seasonal Influenza Virus Vac cine, Unspecified Formulation 01/26/2021,01/25/2020,01/29/2019,01/31,02/17/2017,01/31/2016,02/07/2014 ,01/29/2013,03/25/2012,02/20/2011,08/2009,03/03/2009,03/09/2008,,04/07/2006,04/04/2003 Seasonal Influenza, PF, 6 M & above, [...] encounter Miscellaneous Notes * Telephone Encounter - Radha Cooney LPN - 04/22/2023 6:17 PM EST Faxed medication list as requested * Telephone Encounter - Wolf Ramires OSA - 04/22/2023 10:42 AM EST Nydia is a pharmacist from [employer]. She would like to request PT'S list of meds to be faxed over to her. Fax number: [phone]. Please follow up and call Nydia back if necessary. Thank you. documented in this encounter Plan of Treatment Upcoming Encounters Date Type Department Care Team (Late st Contact Info) Description 07/28/2023 10:20 AM EDT Office Visit Family Practice [facility] [address] [address] Hi Mcdaniels MD [address] [place] [address] 07/29/2023 10:40 AM EDT Office Visit Sleep Disorders Ctr [facility] [address] [place] [phone] Patrica Adorno, [address] [place] [address] 08/12/2023 9:30 AM EDT Office Visit Pharmacy, [facility], [place] [address] [place] [address] [place] [facility] [address] [place] [address] 09/29/2023 9:45 AM EDT Office Visit Dermatology [employer] [address] [facility] [place] [address] Orestes Slaughter MD [address] [place] [address] 12/02/2023 2:00 PM EDT Telemedicine Neurosurgery, [place] [address] [place] [address] Zackary Nash MD [address], [place] [id number] 01/15/2024 10:20 AM EDT Office Visit Nephrology, [facility] [address] [facility] [place] [address] Colleen Acosta MD [address] [facility] [place] [address] 01/30/2024 8:30 AM EDT Nurse Only Ancillary [facility]isse Heredias [address] [place] [address] [place], Nurse Annual Wellness [address] [place] [address] Scheduled Procedures Name Priority Associated Diagnoses Date/Ti me COLONOSCOPY FLEXIBLE PROXIMAL DIAGNOSTIC Recall History of colon polyps Health Maintenance Due Date Last Done Comments DTaP,Tdap,and Td Vaccines (2 - Td or Tdap) 04/19/2021 04/19/2011, 04/04/2003 COLONOSCOPY-EVERY 3 YRS AGES 18-100 11/03/2021 11/03/2018, 04/19/2008 Albumin/Creatinine Ratio 07/15/2023 023, 05/08/2022, 12/18/2020, Additional history exists CKD HGB USE SMARTSET 28202 07/15/202307/15, 11/20/2021, 11/16/2021, Additional history exists Diabetic Foot Exam 07/25/2023 07/24/2022, 0 11/06/2020, 11/25/2019, Additional history exists GFR 07/28/2023 01/27/2023, 06/20, 05/08/2022, Additional history exists HbA1c 08/19/2023 02/17/2023, 09/17, 07/15/2022, Additional history exists TSH 10/10/2023 10/09/2022, 07/17, 06/13/2021, Additional history exists Depression Screening 01/28/2024 01/27/2023 Diabetic Eye Exam 02/22/2024 02/21/2023, , 02/05/2021, Additional history exists CKD PHOS USE SMARTSET 84698 03/04/202402/16, 07/15/2022, 12/18/2020, Additional history exists DXA Scan 11/28/2028 11/29/2019, 01/18, 02/08/2013, Additional history exists Pneumococcal Vaccine: 65+ Years Completed 11/16/2015, 08/11/2013, 12/22/2005 Zoster Vaccines Completed 04/30/2019, 07/12/2018, 01/16/2011 COVID-19 Vaccine Completed 04/19/2023, , 02/16/2021, Additional history exists Influenza Vaccine (FLU shot) Completed 06/2022, 01/24/2023, 01/25/2022, Additional history exists GARDASIL-HPV IMMUNIZATION SERIES Aged Out No longer eligible based on patient's age to complete this topic Hepatitis B Aged Out No longer eligi ble based on patient's age to complete this topic MENINGOCOCCAL (MENACTRA/MENVEO) Aged Out No longer eligible based on patient's age to complete this topic documented as of this encounter Medical Devices Not on filedocumented as of this encounter Care Teams Cook Helper Preserves Relationship Specialty Start Date End Date Hi Mcdaniels MD [address] [place] [address] PCP - General Family Medicine 10/26/21 documented as of this encounter
--- OUTSIDE RECORDS SUMMARY | 2023-08-02 00:10 | External Medical Summary | Summary of Care ---
Author Name Unknown Organization [facility] Address [address] [place] [address] Phone [phone] Care Team Providers Care Monkey Trainer Name Role Phone Hi Mcdaniels MD Primary Care Provider [phone] Reason for Visit * Reason Comments Dosage Adjustment In Person (Anticoag Cl inic) Diabetes Follow-Up Encounter Details Date Type Department Care Team (Late st Contact Info) Description 06/17/2023 9:30 AM [facility] Pharmacy Pharmacy, [facility] [address] [place] [address] [facility] [address] [place] [address] Type 2 diabetes mellitus with hemoglobin A1c goal of less than 8.0% ([facility])* Allergies Active Allergy Reactions Criticality Noted Date Comments Adhesive Tape 03/04/2021 Other reaction(s): SKIN IRRITATIONS Atorvastatin 07/03/2017 Bad dreams Nitrofurantoin Low 08/13/2021 Other reaction(s): Gastrointestinal Upset, GI Upset Nitrofurantoin Monohydrate Macrocrystals 06/10/1997 GI sens. documented as of this encounter (statuses as of 06/17/2023) Medications Medication Sig Dispensed Refills Start Date End Date Status Multiple Vitamins-Minerals (SENIOR MULTIVITAMIN PLUS) Tab Take 1 Tab by mouth every other day. 0 Active CPAP every night at bedtime . 0 Active Diclofenac Sodium 1 % External Gel (Voltaren)Indicati ons:Quadriceps strain, left, subsequent encounter APPLY TOPICALLY TO AFFECTED AREA 2 TIMES A DAY. APPLY TO KNEES 200 g 3 08/23/2021 Active OneTouch Verio w/Device KitIndications:Typ e 2 diabetes mellitus with hemoglobin A1c goal of less than 8.0% ([facility]) Use up to 3 times a day E11.9 1 Kit 0 03/11/2022 Active Glucose Blood In Vitro Strip Use up to 4 times daily to test blood sugar Dx: E11.9 100 Strip 11 03/18/2022 Active Fluticasone Propionate 50 MCG/ACT Nasal SuspensionIndicati ons:Viral URI with cough,Post-nasal drip Administer 2 Sprays into each nostril in the morning. 1 Each 1 04/02/2022 Active Proventil HFA 108 (90 Base) MCG/ACT Inhalation Aerosol SolutionIndication s:Viral URI with cough Inhale 2 Puffs by [...] 0.5 MLIndications:DM type 2, not at goal ([facility]) Use as directed to administer insulin up to four times daily. Dx code E11.9 100 Each 3 12/05/2022 Active Lovastatin 40 MG Oral Tablet TAKE 1 TABLET BY MOUTH EVERYDAY AT BEDTIME 90 Tablet 1 03/20/2023 Active Citalopram Hydrobromide 40 MG Oral Tablet (CeleXA)Indication s:Recurrent major depressive disorder, in full remission (HCC) TAKE 1 TABLET BY MOUTH EVERY DAY IN THE MORNING 90 Tablet 3 04/08/2023 Active Gabapentin 100 MG Oral Capsule (Neurontin)Indicat ions:New onset of headaches after age 50 TAKE 2 CAPSULES TWICE DAILY 120 Capsule 5 04/08/2023 Active Levothyroxine Sodium 100 MCG Oral Tablet (Levoxyl)Indicatio ns:Hypothyroidism due to acquired atrophy of thyroid TAKE 1 TABLET BY MOUTH EVERY DAY AT LEAST 30 MIN BEFORE BREAKFAST OR OTHER MEDICATION 90 Tablet 3 04/08/2023 Active buPROPion HCl ER (XL) 150 MG Oral Tablet Extended Release 24 Hour (Wellbutrin XL) TAKE 1 TABLET (150 MG) BY MOUTH IN THE MORNING. 90 Tablet 3 04/08/2023 Active hydroCHLOROthiazid e 25 MG Oral Tablet (Hydrodiuril)Indic ations:Essential (primary) hypertension TAKE 1 TABLET BY MOUTH EVERY DAY IN THE MORNING 90 Tablet 3 04/08/2023 Active Insulin Glargine-yfgn 100 UNIT/ML Subcutaneous SolutionIndication s:Type 2 diabetes mellitus with hemoglobin A1c goal of less than 8.0% ([facility]),Type 2 diabetes mellitus with stage 3b chronic kidney disease, with long-term current use of insulin ([facility]) INJECT 30 UNITS SUBCUTANEOUSLY AT BEDTIME 30 mL 5 05/01/2023 Active BD Insulin Syringe U/F 30G X 1/2" 0.3 ML (Insulin Syringe-Needle U-100)Indications: DM type 2, not at goal ([facility]) USE DIRECTED TO ADMINISTER INSULIN UP TO FOUR TIMES DAILY. DX CODE E11.9 400 Each 3 05/22/2023 Active Espinelauch Ultra In Vitro Strip (Glucose Blood) USE UP TO 4 TIMES A DAY TO TEST BLOOD SUGAR DX: E11.9 100 Strip 5 06/07/2023 Active documented as of this encounter (statuses as of 06/17/2023) Active Problems Problem Noted Date Diagnosed Date [...] as of this encounter (statuses as of 06/17/2023) Resolved Problems Problem Noted Date Diagnosed Date [...] as of this encounter (statuses as of 06/17/2023) Immunizations Name Administration Dates Next Due COVID-19 mRNA, LNP-s, No Pre serve, 2-Dose Series (DietBetter) 02/16/2021,08/05/2020,07/15/2020 Covid-19, Mrna, Lnp-s, Pf, B ivalent, 30 Mcg, IM, 12 yrs and above ([employer]ietBetter) 03/12/2022 H1N1 2009 Influenza, IM 07/04/2009 Pneumococcal [...] on file documented as of this encounter Progress Notes * Marya Mandel, [facility] - 06/17/2023 9:17 AM EST Medication Therapy Disease Management [facility] - Diabetes Management Progress Note Joanna Gann, identified by name and date of , is a 78 year old female being seen fordiabetes management/education. Patient presents for return diabetic visit. DIABETES: Current diabetic medications: Lantus 35 units HS Serum creatinine: 1.2 mg/dL (H) 01/27/23 0851 Estimated creatinine clearance: 42.1 mL/min (A) Medication Injection Site: Abdomen Lifestyle: Diet: unchanged Glucose Review/SMBG: Readings per patient memory/recall: Patient is currently testing 0-1 times a day Hypoglycemia: Does your blood sugar go below 70 mg/dL? No Hyperglycemia symptoms present: none Recent Labs Units 02/17/23 1015 10/09/22 1517 07/15/22 0849 HEMOGLOBIN A1C - [facility] % 9.1* 8.2* 7.8* Recent Labs Units 01/27/23 0851 07/15/22 0849 05/08/22 0000 ESTIMATED GLOMERULAR FILTRATION RATE - [facility] mL/min 45* 48* -- EGFR-OUTSIDE LAB ML/MIN/1.73M2 -- -- 41.6* CREATININE - [facility] mg/dL 1.2* 1.2* -- CREATININE-OUTSIDE LAB MG/DL -- -- 1.3* HYPERTENSION: Patient on ACEi/ARB: no, not indicated BP Readings from Last 3 Encounters: 03/17/23 168/84 03/04/23 115/73 02/24/23 138/72 Blood pressure at goal: yes HYPERLIPIDEMIA: Patient is taking moderate or high intensity statin: yes HEALTH MAINTENANCE REVIEW: Health Maintenance Due Topic Date Due Hepatitis B (1 of 3 - Risk 3-dose series) Never done DTaP,Tdap,and Td Vaccines (2 - Td or Tdap) 04/19/2021 COLONOSCOPY-EVERY 3 YRS AGES 18-100 11/03/2021 Albumin/Creatinine Ratio 07/15/2023 CKD HGB USE SMARTSET 58419 07/15/2023 ASSESSMENT & PLAN: BG Readings - Blood sugars uncontrolled. Bg values are still trending in the 120-130 in the AM. Patient agreeable to doing a testing log book. Medications - Reviewed current regimen, patient is adherent to regimen. No changes at this time. Diet, Exercise, Lifestyle - No significant lifestyle changes since last visit. Discussed with patient. Patient is agreeable to SMBG 1 time(s) daily. Patient aware to contact clinic if any hypoglycemia before next visit. MEDICATION CHANGES: no change Diabetic Medications: Lantus 35 units daily HEALTH MAINTENANCE INTERVENTIONS: Labs: Up to Date Immunizations: Up to Date Foot Exam: Up to Date Eye Exam: Up to Date Annual Wellness Visit: Up to Date FOLLOW UP: Return to clinic in 8 weeks 08/12/2023 Marya Mandel [facility] Clinical Pharmacist - Principal Technologist Medication Therapy Management Clinic 06/17/2023, 9:18 AM documented in this encounter Plan of Treatment Upcoming Encounters Date Type Department Care Team (Late st Contact Info) Description 07/25/2023 10:00 AM EST Office Visit Sleep Disorders Ctr [facility] [address] [place] [phone] Patrica Adorno DO [address] [place] [address] 07/28/2023 10:20 AM EDT Office Visit [facility] [place] [address] Hi Mcdaniels MD [address] [place] [address] 08/12/2023 9:30 AM EDT Pharmacy Pharmacy, [facility] [address] [facility] [place] [address] [facility] [address] [facility] [place] [address] 09/29/2023 9:45 AM EDT Office Visit Dermatology [place] [facility] [place] [address] [place] [address] Orestes Slaughter MD [address] [place] [address] 12/02/2023 2:00 PM EDT Telemedicine Neurosurgery, [place] [address] [place] [address] Zackary Nash MD [address], [place] [id number] 01/15/2024 10:20 AM EDT Office Visit Nephrology, [facility] [address] [place] [address] Colleen Acosta MD [address] [place] [address] 01/30/2024 8:30 AM EDT Nurse Only Ancillary Deion'julianne Bartholomew [place] [address] [facility] [place] [address] [place] Nurse Annual Wellness [facility] [address] [facility] [place] [address] Scheduled Procedures Name Priority Associated Diagnoses Date/Ti [...] Additional history exists CKD HGB USE SMARTSET 62158 07/15/202307/15, 11/20/2021, 11/16/2021, Additional history exists Diabetic Foot Exam 07/25/2023 07/24/2022, 0 11/06/2020, 11/25/2019, Additional history exists GFR 07/28/2023 01/27/2023, 06/20, 05/08/2022, Additional history exists HbA1c 08/19/2023 02/17/2023, 09/17, 07/15/2022, Additional history exists TSH 10/10/2023 10/09/2022, 07/17, 06/13/2021, Additional history exists Depression Screening 01/28/2024 01/27/2023 Diabetic Eye Exam 02/22/2024 02/21/2023, , 02/05/2021, Additional history exists CKD PHOS USE SMARTSET 54704 03/04/202402/16, 07/15/2022, 12/18/2020, Additional history exists DXA [...] hemoglobin A1c goal of less than 8.0% ([facility])- Primary documented in this encounter Care Teams Monkey Trainer Relationship Specialty Start Date End Date Hi Mcdaniels MD [address] [place] [address] PCP - General Family Medicine 10/26/21 documented as of this encounter
--- OUTSIDE RECORDS SUMMARY | 2023-08-02 00:10 | External Medical Summary | Summary of Care ---
Author Name Unknown Organization [facility] Address [address] [place] [address] Phone [phone] Care Team Providers Care Sugar Boiler Name Role Phone Hi Mcdaniels MD Primary Care Provider [phone] Reason for Visit * Reason Onset Date Comments Advice 06/12/2023 Encounter Details Date Type Department Care Team (Late st Contact Info) Description 06/12/2023 Telephone Family Practice [facility] [address] [place] [address] Hi Mcdaniels MD [address] [employer] [facility] [place] [id number] Advice Allergies Active Allergy Reactions Criticality Noted Date Comments Adhesive Tape 03/04/2021 Other reaction(s): SKIN IRRITATIONS Atorvastatin 07/03/2017 Bad dreams Nitrofurantoin Low 08/13/2021 Other reaction(s): Gastrointestinal Upset, GI Upset Nitrofurantoin Monohydrate Macrocrystals 06/10/1997 GI sens. documented as of this encounter (statuses as of 07/17/2023) Medications Medication Sig Dispensed Refills Start Date [...] hemoglobin A1c goal of less than 8.0% ([facility]) Use up to 3 times a day [...] type 2, not at goal ([facility]) Use as directed to administer insulin up to four times daily. Dx code E11.9 100 Each 3 12/05/2022 Active Lovastatin 40 MG Oral Tablet TAKE 1 TABLET BY MOUTH EVERYDAY AT BEDTIME 90 Tablet 1 03/20/2023 Active Citalopram Hydrobromide 40 MG Oral Tablet (CeleXA)Indication s:Recurrent major depressive disorder, in full remission ([facility]) TAKE 1 TABLET BY MOUTH EVERY DAY [...] long-term current use of insulin ([facility]) INJECT 30 UNITS SUBCUTANEOUSLY AT BEDTIME 30 mL 5 05/01/2023 Active BD Insulin Syringe U/F 30G X 1/2" 0.3 ML (Insulin Syringe-Needle U-100)Indications: DM type 2, not at goal ([facility]) USE DIRECTED TO ADMINISTER INSULIN UP TO FOUR TIMES DAILY. DX CODE E11.9 400 Each 3 05/22/2023 Active OneTouch Ultra In Vitro Strip (Glucose Blood) USE UP TO 4 TIMES A DAY TO TEST BLOOD SUGAR DX: E11.9 100 Strip 5 06/07/2023 Active documented as of this encounter (statuses as of 07/17/2023) Active Problems Problem Noted Date Diagnosed Date [...] as of this encounter (statuses as of 07/17/2023) Resolved Problems Problem Noted Date Diagnosed Date [...] as of this encounter (statuses as of 07/17/2023) Immunizations Name Administration Dates Next Due COVID-19 mRNA, LNP-s, No Pre serve, 2-Dose Series ([employer]) 02/16/2021,08/05/2020,07/15/2020 Covid-19, Mrna, Lnp-s, Pf, B ivalent, 30 Mcg, IM, 12 yrs and above ([employer]) 03/12/2022 H1N1 2009 Influenza, IM 07/04/2009 Pneumococcal [...] encounter Miscellaneous Notes * Telephone Encounter - Jairo Call OSA - 06/19/2023 9:11 AM EST Sent MyG message in separate encounter. Will await response * Telephone Encounter - Jairo Call OSA - 06/17/2023 9:07 AM EST LMOM for pt to schedule acute appt * Telephone Encounter - Radha Venegas MED ASSIST - 06/14/2023 9:22 AM EST Spoke with patient. She is still a little fatigued, has a headache and feels a little lightheaded. She has not started any new meds. Please schedule acute office visit rossy or recommend urgent care. * Telephone Encounter - Michaela Adamson OSA - 06/12/2023 3:31 PM EST Pt thinks she may behaving a reaction to "some pills I started" she is not sure if she took them correctly. Symptoms that started yesterday Lightheaded Headache Fatigue. documented in this encounter Plan of Treatment Upcoming Encounters Date Type Department Care Team (Late st Contact Info) Description 07/25/2023 10:00 AM EST Office Visit Sleep Disorders Ctr [facility], [place] [address] [phone] Patrica Adorno DO [address] [address] 07/28/2023 10:20 AM EDT Office Visit Family Practice [facility] [address] [address] Hi Mcdaniels MD [address] [place] [address] 08/12/2023 9:30 AM EDT Office Visit Pharmacy, [facility] [address] [address] [place] [address] [address] 09/29/2023 9:45 AM EDT Office Visit Dermatology [facility] [place] [address] [place] [address] Orestes Slaughter MD [address] [place] [address] 12/02/2023 2:00 PM EDT Telemedicine Neurosurgery, [place] [address] [place] [address] Zackary Nash MD [address] [place] [address] 01/15/2024 10:20 AM EDT Office Visit [facility]phrology[facility] [address] [facility] [place] [address] Colleen Acosta MD 200 [place] [address] 01/30/2024 8:30 AM EDT [facility] [address] [place] [address] [facility], Nurse Annual Wellness [facility] [address] [place] [address] Scheduled Procedures Name Priority Associated Diagnoses Date/Ti me COLONOSCOPY FLEXIBLE PROXIMAL DIAGNOSTIC Recall History of colon polyps Health Maintenance Due Date Last Done Comments DTaP,Tdap,and Td Vaccines (2 - Td or Tdap) 04/19/2021 04/19/2011, 04/04/2003 COLONOSCOPY-EVERY 3 YRS AGES 18-100 11/03/2021 11/03/2018, 04/19/2008 Albumin/Creatinine Ratio 07/15/2023 023, 05/08/2022, 12/18/2020, Additional history exists CKD HGB USE SMARTSET 82066 07/15/202307/15, 11/20/2021, 11/16/2021, Additional history exists Diabetic Foot Exam 07/25/2023 07/24/2022, 0 11/06/2020, 11/25/2019, Additional history exists GFR 07/28/2023 01/27/2023, 06/20, 05/08/2022, Additional history exists HbA1c 08/19/2023 02/17/2023, 09/17, 07/15/2022, Additional history exists TSH 10/10/2023 10/09/2022, 07/17, 06/13/2021, Additional history exists Depression Screening 01/28/2024 01/27/2023 Diabetic Eye Exam 02/22/2024 02/21/2023, , 02/05/2021, Additional history exists CKD PHOS USE SMARTSET 06852 03/04/202402/16, 07/15/2022, 12/18/2020, Additional history exists DXA [...] filedocumented as of this encounter Care Teams Sugar Boiler Relationship Specialty Start Date End Date Hi Mcdaniels MD 132 [facility] [place] [address] PCP - General Family Medicine 10/26/21 documented as of this encounter
--- OUTSIDE RECORDS SUMMARY | 2023-08-02 00:10 | External Medical Summary | Summary of Care ---
Author Name Unknown Organization [facility] Address [address] [place] [address] Phone [phone] Care Team Providers Care Director Index Name Role Phone Hi Mcdaniels MD Primary Care Provider [phone] Reason for Visit * Reason Comments Acute Pt here for chest co ngestion and tighness for the last couple of days. Nausea and fatigue. Pt unable to name any of her medications or when she had taken them last Encounter Details Date Type Department Care Team (Latest Contact Info) Description 07/27/2023 3:00 PM EDT Convenient Care Visit [facility] [address] [place] [address] Faith Carrero CRNP [address] [place] [address] Acute non-recurrent maxillary sinusitis* Allergies Active Allergy Reactions Criticality Noted Date Comments Adhesive Tape 03/04/2021 Other reaction(s): SKIN IRRITATIONS Atorvastatin 07/03/2017 Bad dreams Nitrofurantoin Low 08/13/2021 Other reaction(s): Gastrointestinal Upset, GI Upset Nitrofurantoin Monohydrate Macrocrystals 06/10/1997 GI sens. documented as of this encounter (statuses as of 07/27/2023) Medications Medication Sig Dispensed Refills Start Date [...] hemoglobin A1c goal of less than 8.0% ([facility]) Use up to 3 times a day [...] 0.5 MLIndications:DM type 2, not at goal ([facility]) Use as directed to administer insulin up to four times daily. Dx code E11.9 100 Each 3 12/05/2022 Active Lovastatin 40 MG Oral Tablet TAKE 1 TABLET BY MOUTH EVERYDAY AT BEDTIME 90 Tablet 1 03/20/2023 Active Citalopram Hydrobromide 40 MG Oral Tablet (CeleXA)Indication s:Recurrent major depressive disorder, in full remission ([facility]) TAKE 1 TABLET BY MOUTH EVERY DAY [...] disease, with long-term current use of insulin ([facility]) INJECT 30 UNITS SUBCUTANEOUSLY AT BEDTIME 30 mL 5 05/01/2023 Active BD Insulin Syringe U/F 30G X 1/2" 0.3 ML (Insulin Syringe-Needle U-100)Indications: DM type 2, not at goal ([facility]) USE DIRECTED TO ADMINISTER INSULIN UP TO FOUR TIMES DAILY. DX CODE E11.9 400 Each 3 05/22/2023 Active OneTouch Ultra In Vitro Strip (Glucose Blood) USE UP TO 4 TIMES A DAY TO TEST BLOOD SUGAR DX: E11.9 100 Strip 5 06/07/2023 Active Amoxicillin-Pot Clavulanate 875-125 MG Oral Tablet (Augmentin)Indicat ions:Acute non-recurrent maxillary sinusitis Take 1 Tablet by mouth in the morning and 1 Tablet before bedtime. Do all this for 10 days. 20 Tablet 0 07/27/2023 4 Active documented as of this encounter (statuses as of 07/27/2023) Active Problems Problem Noted Date Diagnosed Date [...] as of this encounter (statuses as of 07/27/2023) Resolved Problems Problem Noted Date Diagnosed Date [...] as of this encounter (statuses as of 07/27/2023) Immunizations Name Administration Dates Next Due COVID-19 mRNA, LNP-s, No Pre serve, 2-Dose Series ([employer]) 02/16/2021,08/05/2020,07/15/2020 Covid-19, Mrna, Lnp-s, Pf, B ivalent, 30 Mcg, IM, 12 yrs and above ([employer]) 03/12/2022 H1N1 2009 Influenza, IM 07/04/2009 Pneumococcal [...] on file documented as of this encounter Last Filed Vital Signs Vital Sign Reading Time Taken Comments Blood Pressure 132/76 07/27/2023 2:47 PM EDT Pulse 88 07/27/2023 2:47 PM EDT Temperature 37 C (98.6 F) 07/27/2023 2:47 PM EDT Respiratory Rate 20 07/27/2023 2:47 PM EDT Oxygen Saturation 98% 07/27/2023 2:47 PM EDT Inhaled Oxygen Concentration - - Weight 89.9 kg (198 lb 3.2 oz) 07/27/2023 2:47 P M EDT Height 152.4 cm (5') 07/27/2023 2:47 PM EDT Body Mass Index 38.71 07/27/2023 2:47 PM EDT documented in this encounter Progress Notes * Faith Carrero CRNP - 07/27/2023 2:54 PM EDT Subjective Apolinar Gann is a 78 year old female that presents for Acute (Pt here for chest congestion and tighness for the last couple of days. Nausea and fatigue. Pt unable to name any of her medications or when she had taken them last) HPI: She presents with acute complaints of sore throat, runny nose, congestion, shortness of breath, and a moist productive cough. She does not know the color of her mucous, and does not know the color of her sputum. She states that she is taking her pills, but does not know what they are. Her daughter helps to prepare them. She denies taking any OTC medications REVIEW OF SYSTEMS: See HPI for pertinent positives. All others negative other than those noted in the HPI. Objective BP 132/76 | Pulse 88 | Temp 37 C (98.6 F) | Resp 20 | Ht 1.524 m (5') | Wt 89.9 kg (198 lb 3.2 oz) | SpO2 98% | BMI 38.71 kg/m | BSA 1.95 m Body mass index is 38.71 kg/m. BP Readings from Last 3 Encounters: 07/27/23 132/76 03/17/23 168/84 03/04/23 115/73 Wt Readings from Last 3 Encounters: 07/27/23 89.9 kg (198 lb 3.2 oz) 03/25/23 101.7 kg (224 lb 1.6 oz) 03/17/23 101.2 kg (223 lb) Physical Exam Constitutional: Appearance: She is normal weight. She is ill-appearing. HENT: Head: Normocephalic and atraumatic. Right Ear: Tympanic membrane, ear canal and external ear normal. Left Ear: Tympanic membrane, ear canal and external ear normal. Nose: Congestion and rhinorrhea present. Mouth/Throat: Mouth: Mucous membranes are moist. Pharynx: Oropharynx is clear. Posterior oropharyngeal erythema present. Eyes: Extraocular Movements: Extraocular movements intact. Conjunctiva/sclera: Conjunctivae normal. Pupils: Pupils are equal, round, and reactive to light. Cardiovascular: Rate and Rhythm: Normal rate and regular rhythm. Pulses: Normal pulses. Heart sounds: Normal heart sounds. Pulmonary: Effort: Pulmonary effort is normal. Breath sounds: Normal breath sounds. Musculoskeletal: Cervical back: Normal range of motion. Lymphadenopathy: Cervical: Cervical adenopathy present. Skin: General: Skin is warm and dry. Neurological: General: No focal deficit present. Mental Status: She is alert and oriented to person, place, and time. Mental status is at baseline. Psychiatric: Mood and Affect: Mood normal. Behavior: Behavior normal. Thought Content: Thought content normal. Judgment: Judgment normal. None Assessment and plan 1. Acute non-recurrent maxillary sinusitis -Encourage hydration -May take tylenol as needed for symptom management. - Amoxicillin-Pot Clavulanate 875-125 MG Oral Tablet (Augmentin); Take 1 Tablet by mouth in the morning and 1 Tablet before bedtime. Do all this for 10 days. Dispense: 20 Tablet; Refill: 0 Follow up Follow Up: Return if symptoms worsen or fail to improve. Total time today including reviewing chart before the visit, pertinent labs, imaging reports, face to face time, and documentation time was 15 minutes. The above was discussed and understanding was expressed. [address] documented in this encounter Plan of Treatment Upcoming Encounters Date Type Department Care Team (Late st Contact Info) Description 07/29/2023 10:40 AM EDT Office Visit Sleep Disorders Ctr [facility] [address] [facility] [place] [phone] Patrica Adorno, [address] [facility] [place] [address] 08/12/2023 9:30 AM EDT Office Visit Pharmacy, [facility] 132 [place] [address] [place] [address] [place] [address] 09/29/2023 9:45 AM EDT Office Visit Dermatology [facility] [address] [place] [address] Orestes Slaughter MD [address] [place] [address] 12/02/2023 2:00 PM EDT Telemedicine Neurosurgery, [place] [address] [place], [place] [phone] Zackary Nash MD [address] [place], [place] [id number] 01/15/2024 10:20 AM EDT Office Visit Nephrology, [facility] [address] [place] [address] Colleen Acosta MD 200 [place] [address] 01/30/2024 8:30 AM EDT Nurse Only Ancillary [address] [place] [address] [place], Nurse Annual Wellness [address] [address] Scheduled Procedures Name Priority Associated Diagnoses Date/Ti me COLONOSCOPY FLEXIBLE PROXIMAL DIAGNOSTIC Recall History of colon polyps Health Maintenance Due Date Last Done Comments DTaP,Tdap,and Td Vaccines (2 - Td or Tdap) 04/19/2021 04/19/2011, 04/04/2003 COLONOSCOPY-EVERY 3 YRS AGES 18-100 11/03/2021 11/03/2018, 04/19/2008 Albumin/Creatinine Ratio 07/15/2023 023, 05/08/2022, 12/18/2020, Additional history exists CKD HGB USE SMARTSET 31259 07/15/202307/15, 11/20/2021, 11/16/2021, Additional history exists Diabetic Foot Exam 07/25/2023 07/24/2022, 0 11/06/2020, 11/25/2019, Additional history exists GFR 07/28/2023 01/27/2023, 06/20, 05/08/2022, Additional history exists HbA1c 08/19/2023 02/17/2023, 09/17, 07/15/2022, Additional history exists TSH 10/10/2023 10/09/2022, 07/17, 06/13/2021, Additional history exists Depression Screening 01/28/2024 01/27/2023 Diabetic Eye Exam 02/22/2024 02/21/2023, , 02/05/2021, Additional history exists CKD PHOS USE SMARTSET 72354 03/04/202402/16, 07/15/2022, 12/18/2020, Additional history exists DXA Scan 11/28/2028 11/29/2019, 01/18, 02/08/2013, Additional history exists Pneumococcal Vaccine: 65+ Years Completed 11/16/2015, 08/11/2013, 12/22/2005 Zoster Vaccines Completed 04/30/2019, 0712/2018, 01/16/2011 COVID-19 Vaccine Completed 04/19/2023, , 02/16/2021, [...] as of this encounter Visit Diagnoses Diagnosis Acute non-recurrent maxillary sinusitis- Primary documented in this encounter Care Teams Director Index Relationship Specialty Start Date End Date Hi Mcdaniels MD [address] [place] [address] PCP - General Family Medicine 10/26/21 documented as of this encounter
--- OUTSIDE RECORDS SUMMARY | 2023-08-02 00:10 | External Medical Summary | Summary of Care ---
Author Name Unknown Organization [facility] Address [address] [place] [address] Phone [phone] Care Team Providers Care Desktop Administrator Name Role Phone Hi Mcdaniels MD Primary Care Provider [phone] Reason for Visit * Reason Comments eRx-Medication Refill Encounter Details Date Type Department Care Team (Late st Contact Info) Description 05/23/2023 Refill Family Practice [facility] [address] [facility] [address] Hi Mcdaniels MD [address] [facility] [place] [id number] Type 2 diabetes mellitus with hemoglobin A1c goal of 7.0%-8.0% ([facility]) Allergies Active Allergy Reactions Criticality Noted Date [...] 0.5 MLIndications:DM type 2, not at goal ([facility]) Use as directed to administer insulin up [...] disease, with long-term current use of insulin ([facility]) INJECT 30 UNITS SUBCUTANEOUSLY AT BEDTIME 30 mL 5 3 Active BD Insulin Syringe U/F 30G X 1/2" 0.3 ML (Insulin Syringe-Needle U-100)Indication s:DM type 2, not at goal ([facility]) USE DIRECTED TO ADMINISTER INSULIN UP TO FOUR TIMES DAILY. DX CODE E11.9 400 Each 3 4 Active [employer] Ultra In Vitro Strip (Glucose Blood) Use [...] mRNA, LNP-s, No Pre serve, 2-Dose Series ([employer]) 02/16/2021,08/05/2020,07/15/2020 Covid-19, Mrna, Lnp-s, Pf, B ivalent, 30 Mcg, IM, 12 yrs and above ([employer]) 03/12/2022 H1N1 2009 Influenza, IM 07/04/2009 Pneumococcal [...] encounter Miscellaneous Notes * Telephone Encounter - Mena Grigsby CPhT - 06/10/2023 4:29 PM EST Patient calling to ask why Apidra was refused for refill Thank you, Mena Grigsby Adult Probation Officer II [facility] ([facility]) 06/10/2023 4:30 PM * Telephone Encounter - Hawa Franz [facility] - 05/25/2023 7:54 PM ESTRefused Prescriptions: Disp [...] 06/12/2023 9:00 AM EST Office Visit Pharmacy, [facility] [address] [address] [facility] [address] [address] 07/25/2023 10:00 AM EST Office Visit Sleep Disorders Ctr [facility] [address] [phone] Patrica Adorno DO [address] [place] [address] 07/28/2023 10:20 AM EDT Office Visit Family Practice [facility] [address] [address] Hi Mcdaniels MD [address] [place] [address] 09/29/2023 9:45 AM EDT Office Visit Dermatology [facility] [address] [facility] [place] [address] Orestes Slaughter MD [address] [facility] [place] [address] 12/02/2023 2:00 PM EDT Telemedicine Neurosurgery, [place] [address] [place] [address] Zackary Nash MD [address] [place], [place] [id number] 01/15/2024 10:20 AM EDT Office Visit Nephrology, [facility] [address] [facility] [place] [address] Colleen Acosta MD [address] [facility] [place] [address] 01/30/2024 8:30 AM EDT Nurse Only Ancillary [facility] [place] [address] [place] [address] [facility], Nurse Annual Wellness [facility] [address] [place] [address] Scheduled Procedures Name Priority Associated Diagnoses Date/Ti [...] Additional history exists CKD HGB USE SMARTSET 82653 07/15/202307/15, 11/20/2021, 11/16/2021, Additional history exists Diabetic Foot Exam 07/25/2023 07/24/2022, 0 11/06/2020, 11/25/2019, Additional history exists GFR 07/28/2023 01/27/2023, 06/20, 05/08/2022, Additional history exists HbA1c 08/19/2023 02/17/2023, 09/17, 07/15/2022, Additional history exists TSH 10/10/2023 10/09/2022, 07/17, 06/13/2021, Additional history exists Depression Screening 01/28/2024 01/27/2023 Diabetic Eye Exam 02/22/2024 02/21/2023, , 02/05/2021, Additional history exists CKD PHOS USE SMARTSET 99537 03/04/202402/16, 07/15/2022, 12/18/2020, Additional history exists DXA [...] mellitus with hemoglobin A1c goal of 7.0%-8.0% ([facility]) documented in this encounter Care Teams Desktop Administrator Relationship Specialty Start Date End Date Hi Mcdaniels MD [address] [place] [address] PCP - General Family Medicine 10/26/21 documented as of this encounter
--- OUTSIDE RECORDS SUMMARY | 2023-08-02 00:11 | External Medical Summary | Summary of Care ---
Author Name Unknown Organization [facility] Address [address] [place] [address] Phone [phone] Care Team Providers Care Pairer Substandard Name Role Phone Marko Caldwell MD Primary Care Provider [phone] Reason for Visit * Reason Comments eRx-Medication Refill Encounter Details Date Type Department Care Team (Late st Contact Info) Description 05/20/2023 Refill Family Practice [facility] [address] [place] [address] Marko Caldwell MD [address] [facility] [place] [id number] DM type 2, not at goal (HCC) Allergies Active Allergy Reactions Criticality Noted Date Comments Adhesive Tape 03/04/2021 Other reaction(s): SKIN IRRITATIONS Atorvastatin 07/03/2017 Bad dreams Nitrofurantoin Low 08/13/2021 Other reaction(s): Gastrointestinal Upset, GI Upset Nitrofurantoin Monohydrate Macrocrystals 06/10/1997 GI sens. documented as of this encounter (statuses as of 05/22/2023) Medications Medication Sig Dispensed Refills Start Date [...] or Wheezing. 18 g 1 2 Active OneTouch Ultra In Vitro Strip (Glucose Blood) Use up to 4 times a day to test blood sugar Dx: E11.9 100 Strip 11 3 Active Vitamin D3 25 MCG Oral Tablet Take 1 Tablet by mouth in the morning. 30 Tablet 0 3 Active Cyanocobalamin 1000 MCG Oral Tablet (Cyanocobalamin) Take 1 Tablet by mouth in the morning. 30 Tablet 0 3 Active Insulin Syringe 30G X 1/2" 0.5 MLIndications:DM type 2, not at goal (HCC) Use as directed to administer insulin up [...] disease, with long-term current use of insulin ([facility]) INJECT 30 UNITS SUBCUTANEOUSLY AT BEDTIME 30 mL 5 3 Active BD Insulin Syringe U/F 30G X 1/2" 0.3 ML (Insulin Syringe-Needle U-100)Indication s:DM type 2, not at goal ([facility]) USE DIRECTED TO ADMINISTER INSULIN UP TO FOUR TIMES DAILY. DX CODE E11.9 400 Each 3 4 Active Insulin Syringe-Needle U-100 30G X 1/2" 0.3 MLIndications:DM type 2, not at goal ([facility]) Use as directed to administer insulin up to four times daily. Dx code E11.9 100 Each 3 3 05/22/19 24 Discontinued documented as of this encounter (statuses as of 05/22/2023) Active Problems Problem Noted Date Diagnosed Date [...] as of this encounter (statuses as of 05/22/2023) Resolved Problems Problem Noted Date Diagnosed Date [...] as of this encounter (statuses as of 05/22/2023) Immunizations Name Administration Dates Next Due COVID-19 mRNA, LNP-s, No Pre serve, 2-Dose Series ([employer]) 02/16/2021,08/05/2020,07/15/2020 Covid-19, Mrna, Lnp-s, Pf, B ivalent, 30 Mcg, IM, 12 yrs and above ([employer]) 03/12/2022 H1N1 2009 Influenza, IM 07/04/2009 Pneumococcal [...] encounter Miscellaneous Notes * Telephone Encounter - Adin Mckeon, [facility] - 05/22/2023 12:10 PM ESTSigned Prescriptions: Disp Refills BD Insulin Syringe U/F 30G X 1/2" 0.3 ML (*400 Ea*3 Sig: USE DIRECTED TO ADMINISTER INSULIN UP TO FOUR TIMES DAILY. DX CODE E11.9Authorizing Provider: MARKO CALDWELL User: ADIN BUSH documented in this encounter Plan of Treatment Upcoming Encounters Date Type Department Care Team (Late st Contact Info) Description 06/12/2023 9:00 AM EST Office Visit Pharmacy, [facility] [address] [place] [address] [facility] [address] [place] [address] 07/25/2023 10:00 AM EST [facility] [address] [place] [phone] Patrica Adorno DO [address] [place] [address] 07/28/2023 10:20 AM EDT Office Visit Family Practice [facility] [address] [place] [address] Marko Caldwell MD [address] [place] [address] 09/29/2023 9:45 AM EDT Office Visit Dermatology [facility] [place] [address] [place] [address] Orestes Slaughter MD [address] [place] [address] 12/02/2023 2:00 PM EDT Telemedicine Neurosurgery, [place] [address] [place], [place] [id number] Zackary Nash MD [address] [place] [address] 01/15/2024 10:20 AM EDT Office Visit Nephrology, [facility] [address] [place] [address] Colleen Acosta MD 200 [facility] [place] [address] 01/30/2024 8:30 AM EDT Nurse Only Ancillary Albarranjulianne [facility] [address] [place] [address] [facility], Nurse Annual Wellness [facility] [address] [place] [address] Scheduled Procedures Name Priority Associated Diagnoses Date/Ti [...] Additional history exists CKD HGB USE SMARTSET 05067 07/15/202307/15, 11/20/2021, 11/16/2021, Additional history exists Diabetic Foot Exam 07/25/2023 07/24/2022, 0 11/06/2020, 11/25/2019, Additional history exists GFR 07/28/2023 01/27/2023, 06/20, 05/08/2022, Additional history exists HbA1c 08/19/2023 02/17/2023, 09/17, 07/15/2022, Additional history exists TSH 10/10/2023 10/09/2022, 07/17, 06/13/2021, Additional history exists Depression Screening 01/28/2024 01/27/2023 Diabetic Eye Exam 02/22/2024 02/21/2023, , 02/05/2021, Additional history exists CKD PHOS USE SMARTSET 19800 03/04/202402/16, 07/15/2022, 12/18/2020, Additional history exists DXA [...] as of this encounter Visit Diagnoses Diagnosis DM type 2, not at goal (HCC) Type II or unspecified type diabetes mellitus without mention of complication, not stated as uncontrolled documented in this encounter Care Teams Pairer Substandard Relationship Specialty Start Date End Date Marko Caldwell MD [address] [place] [address] PCP - General Family Medicine 10/26/21 documented as of this encounter
--- OUTSIDE RECORDS SUMMARY | 2023-08-02 00:11 | External Medical Summary | Summary of Care ---
Author Name Unknown Organization [facility] Address [address] [place] [address] Phone [phone] Care Team Providers Care Lead Refinery Supervisor Name Role Phone Hi Mcdaniels MD Primary Care Provider [phone] Reason for Visit * Reason Comments eRx-Medication Refill Encounter Details Date Type Department Care Team (Late st Contact Info) Description 05/23/2023 Refill Family Practice [facility] [address] [facility] [address] Hi Mcdaniels MD [address] [facility] [place] [id number] Type 2 diabetes mellitus with hemoglobin A1c goal of 7.0%-8.0% ([facility]) Allergies Active Allergy Reactions Criticality Noted Date Comments Adhesive Tape 03/04/2021 Other reaction(s): SKIN IRRITATIONS Atorvastatin 07/03/2017 Bad dreams Nitrofurantoin Low 08/13/2021 Other reaction(s): Gastrointestinal Upset, GI Upset Nitrofurantoin Monohydrate Macrocrystals 06/10/1997 GI sens. documented as of this encounter (statuses as of 05/25/2023) Medications Medication Sig Dispensed Refills Start Date [...] hemoglobin A1c goal of less than 8.0% ([facility]) Use up to 3 times a [...] or Wheezing. 18 g 1 04/02/2022 Active OneTouch Ultra In Vitro Strip (Glucose Blood) Use up to 4 times a day to test blood sugar Dx: E11.9 100 Strip 11 05/30/2022 Active Vitamin D3 25 MCG Oral Tablet Take 1 Tablet by mouth in the morning. 30 Tablet 0 08/14/2022 Active Cyanocobalamin 1000 MCG Oral Tablet (Cyanocobalamin) Take 1 Tablet by mouth in the morning. 30 Tablet 0 08/14/2022 Active Insulin Syringe 30G X 1/2" 0.5 MLIndications:DM type 2, not at goal ([facility]) Use as directed to administer insulin [...] hemoglobin A1c goal of less than 8.0% ([facility]),Type 2 diabetes mellitus with stage 3b chronic kidney disease, with long-term current use of insulin ([facility]) INJECT 30 UNITS SUBCUTANEOUSLY AT BEDTIME 30 mL 5 05/01/2023 Active BD Insulin Syringe U/F 30G X 1/2" 0.3 ML (Insulin Syringe-Needle U-100)Indications: DM type 2, not at goal ([facility]) USE DIRECTED TO ADMINISTER INSULIN UP TO FOUR TIMES DAILY. DX CODE E11.9 400 Each 3 05/22/2023 Active documented as of this encounter (statuses as of 05/25/2023) Active Problems Problem Noted Date Diagnosed Date [...] as of this encounter (statuses as of 05/25/2023) Resolved Problems Problem Noted Date Diagnosed Date [...] as of this encounter (statuses as of 05/25/2023) Immunizations Name Administration Dates Next Due COVID-19 mRNA, LNP-s, No Pre serve, 2-Dose Series ([employer]) 02/16/2021,08/05/2020,07/15/2020 Covid-19, Mrna, Lnp-s, Pf, B ivalent, 30 Mcg, IM, 12 yrs and above ([employer]) 03/12/2022 H1N1 2009 Influenza, IM 07/04/2009 Pneumococcal [...] encounter Miscellaneous Notes * Telephone Encounter - Hawa [facility] - 05/25/2023 7:54 PM ESTRefused Prescriptions: Disp [...] 06/12/2023 9:00 AM EST Office Visit Pharmacy, [facility] [address] [facility] [place] [address] [facility] [place] [address] 07/25/2023 10:00 AM EST Office Visit Sleep Disorders Ctr [facility] [place] [phone] Patrica Adorno DO [address] [place] [address] 07/28/2023 10:20 AM EDT Office Visit Family Practice [facility] [address] [facility] [place] [address] Hi Mcdaniels MD [address] [place] [address] 09/29/2023 9:45 AM EDT Office Visit Dermatology [facility] [address] [place] [address] Orestes Slaughter MD [address] [place] [address] 12/02/2023 2:00 PM EDT Telemedicine Neurosurgery, [place] [address] [place], [place] [phone] Zackary Nash MD [address] [place], [place] [phone] 01/15/2024 10:20 AM EDT Office Visit Nephrology, [facility] [address] [place], [place] [address] Colleen Acosta MD [address] [place], [place] [address] 01/30/2024 8:30 AM EDT Nurse Only Ancillary Deionjulianne [facility] [place] [address] [facility] [place] [address] [facility], Nurse Annual Wellness [facility] [address] Scheduled Procedures Name Priority Associated Diagnoses Date/Ti [...] Additional history exists CKD HGB USE SMARTSET 82503 07/15/202307/15, 11/20/2021, 11/16/2021, Additional history exists Diabetic Foot Exam 07/25/2023 07/24/2022, 0 11/06/2020, 11/25/2019, Additional history exists GFR 07/28/2023 01/27/2023, 06/20, 05/08/2022, Additional history exists HbA1c 08/19/2023 02/17/2023, 09/17, 07/15/2022, Additional history exists TSH 10/10/2023 10/09/2022, 07/17, 06/13/2021, Additional history exists Depression Screening 01/28/2024 01/27/2023 Diabetic Eye Exam 02/22/2024 02/21/2023, , 02/05/2021, Additional history exists CKD PHOS USE SMARTSET 09216 03/04/202402/16, 07/15/2022, 12/18/2020, Additional history exists DXA [...] mellitus with hemoglobin A1c goal of 7.0%-8.0% ([facility]) documented in this encounter Care Teams Lead Refinery Supervisor Relationship Specialty Start Date End Date Hi Mcdaniels MD [address] [place] [address] PCP - General Family Medicine 10/26/21 documented as of this encounter
--- OUTSIDE RECORDS SUMMARY | 2023-08-02 00:11 | External Medical Summary | Summary of Care ---
Author Name Unknown Organization [facility] Address [address] [place] [address] Phone [phone] Care Team Providers Care Field Radio Operator Name Role Phone Hi Mcdaniels MD Primary Care Provider [phone] Reason for Visit * Reason Comments eRx-Medication Refill Encounter Details Date Type Department Care Team (Late st Contact Info) Description 05/05/2023 Refill Family Practice [facility] [address] [place] [facility] [place] [address] Hi Mcdaniels MD [address] [facility] [place] [phone] Type 2 diabetes mellitus with hemoglobin A1c goal of 7.0%-8.0% ([facility]) Allergies Active Allergy Reactions Criticality Noted Date Comments Adhesive Tape 03/04/2021 Other reaction(s): SKIN IRRITATIONS Atorvastatin 07/03/2017 Bad dreams Nitrofurantoin Low 08/13/2021 Other reaction(s): Gastrointestinal Upset, GI Upset Nitrofurantoin Monohydrate Macrocrystals 06/10/1997 GI sens. documented as of this encounter (statuses as of 05/06/2023) Medications Medication Sig Dispensed Refills Start Date [...] code E11.9 100 Each 3 12/05/2022 Active Insulin Syringe-Needle U-100 30G X 1/2" 0.3 MLIndications:DM type 2, not at goal (HCC) [...] disease, with long-term current use of insulin (HCC) INJECT 30 UNITS SUBCUTANEOUSLY AT BEDTIME 30 mL 5 05/01/2023 Active documented as of this encounter (statuses as of 05/06/2023) Active Problems Problem Noted Date Diagnosed Date [...] as of this encounter (statuses as of 05/06/2023) Resolved Problems Problem Noted Date Diagnosed Date [...] as of this encounter (statuses as of 05/06/2023) Immunizations Name Administration Dates Next Due COVID-19 mRNA, LNP-s, No Pre serve, 2-Dose Series ([employer]) 02/16/2021,08/05/2020,07/15/2020 Covid-19, Mrna, Lnp-s, Pf, B ivalent, 30 Mcg, IM, 12 yrs and above ([employer]) 03/12/2022 H1N1 2008 Influenza, IM 07/04/2009 Pneumococcal Conjugate Vacc, 13 [...] Notes * Telephone Encounter - Marco Antonio Worley RP - 05/06/2023 11:02 AM EST Refused Prescriptions: Disp Refills Apidra 100 UNIT/ML Injection Solution (Ins*10 mL 1 Sig: INJECT 3 UNITS SUBCUTANEOUSLY IF BS 100-150, 5 UNITS IF BS 150-200, 7 UNITS IF 200-250, 10 UNITS IF > 250 FOR SUPPERRefused By: MARCO ANTONIO WORLEY for Refusal: Dose needs clarification Electronically signed by Marco Antonio Worley [facility], located [facility] at 05/06/2023 11:02 AM EST documented in this encounter Plan of Treatment Upcoming Encounters Date Type Department Care Team (Late st Contact Info) Description 06/12/2023 9:00 AM EST Office Visit Pharmacy, [facility] [address] [place] [address] [place] [facility] [address] [place], [place] [address] 07/25/2023 10:00 AM EST Office Visit Sleep Disorders Ctr [facility] [address] [place] [phone] Patrica Adorno DO [address] [place] [address] 07/28/2023 10:20 AM EDT Office Visit Family Practice [facility] [address] [place] [address] Hi Mcdaniels MD [address] [place] [address] 09/29/2023 9:45 AM EDT Office Visit Dermatology [place] [facility] [place] [address] [place] [address] Orestes Slaughter MD [address] [place] [address] 12/02/2023 2:00 PM EDT Telemedicine Neurosurgery, [place] [address] [place] [address] Zackary Nash MD [address] [place], [place] [phone] 01/15/2024 10:20 AM EDT Office Visit Nephrology, [facility] [address] [place] [address] Colleen Acosta MD [address] [place] [address] 01/30/2024 8:30 AM EDT Nurse Only Ancillary Charisse Bartholomew [place] 132 [facility] [address] [place] Nurse Annual Wellness [facility] 132 [facility] [place] [address] Scheduled Procedures Name Priority Associated Diagnoses Date/Ti [...] Additional history exists CKD HGB USE SMARTSET 55075 07/15/202307/15, 11/20/2021, 11/16/2021, Additional history exists Diabetic Foot Exam 07/25/2023 07/24/2022, 0 11/06/2020, 11/25/2019, Additional history exists GFR 07/28/2023 01/27/2023, 06/20, 05/08/2022, Additional history exists HbA1c 08/19/2023 02/17/2023, 09/17, 07/15/2022, Additional history exists TSH 10/10/2023 10/09/2022, 07/17, 06/13/2021, Additional history exists Depression Screening 01/28/2024 01/27/2023 Diabetic Eye Exam 02/22/2024 02/21/2023, , 02/05/2021, Additional history exists CKD PHOS USE SMARTSET 02760 03/04/202402/16, 07/15/2022, 12/18/2020, Additional history exists DXA [...] mellitus with hemoglobin A1c goal of 7.0%-8.0% ([facility]) documented in this encounter Care Teams Field Radio Operator Relationship Specialty Start Date End Date Hi Mcdaniels MD [address] [place] [address] PCP - General Family Medicine 10/26/21 documented as of this encounter
--- OUTSIDE RECORDS SUMMARY | 2023-08-02 00:11 | External Medical Summary | Summary of Care ---
Author Name Unknown Organization [facility] Address [address] [address] , [place] Care Team Providers Care Principal Embedded Software Engineer Name Role Phone Hi Mcdaniels MD Primary Care Provider [phone] Reason for Visit * Reason Onset Date Comments Medication Refill 05/01/2023 Encounter Details Date Type Department Care Team (Late st Contact Info) Description 05/01/2023 Telephone Pharmacy, [facility] [address] [facility] [place] [address] [facility] Nisla 132 [facility] [place] [address] Medication Refill (/) Allergies Active Allergy Reactions Criticality Noted Date Comments Adhesive Tape 03/04/2021 Other reaction(s): SKIN IRRITATIONS Atorvastatin 07/03/2017 Bad dreams Nitrofurantoin Low 08/13/2021 Other reaction(s): Gastrointestinal Upset, GI Upset Nitrofurantoin Monohydrate Macrocrystals 06/10/1997 GI sens. documented as of this encounter (statuses as of 05/01/2023) Medications Medication Sig Dispensed Refills Start Date End Date Status Multiple Vitamins-Minerals (SENIOR MULTIVITAMIN PLUS) Tab Take 1 Tab by mouth every other day. 0 Active CPAP every night at bedtime . 0 Active Diclofenac Sodium 1 % External Gel (Voltaren)Indicat ions:Quadriceps strain, left, subsequent encounter APPLY TOPICALLY TO AFFECTED AREA 2 TIMES A DAY. APPLY TO KNEES 200 g 3 2 Active OneTouch Verio w/Device KitIndications:Ty pe 2 diabetes mellitus with hemoglobin A1c goal of less than 8.0% (HCC) Use up to 3 times a day E11.9 1 Kit 0 2 Active Glucose Blood In Vitro Strip Use up to 4 times daily to test blood sugar Dx: E11.9 100 Strip 11 2 Active Fluticasone Propionate 50 MCG/ACT Nasal SuspensionIndicat ions:Viral URI with cough,Post-nasal drip Administer 2 Sprays into each nostril in the morning. 1 Each 1 2 Active Proventil HFA 108 (90 Base) MCG/ACT Inhalation Aerosol SolutionIndicatio ns:Viral URI with cough Inhale 2 Puffs by [...] code E11.9 100 Each 3 3 Active Insulin Syringe-Needle U-100 30G X 1/2" 0.3 MLIndications:DM type 2, not at goal (HCC) Use as directed to administer insulin up to four times daily. Dx code E11.9 100 Each 3 3 Active Lovastatin 40 MG Oral Tablet TAKE 1 TABLET BY MOUTH EVERYDAY AT BEDTIME 90 Tablet 1 3 Active Citalopram Hydrobromide 40 MG Oral Tablet (CeleXA)Indicatio ns:Recurrent major depressive disorder, in full remission (HCC) TAKE 1 TABLET BY MOUTH EVERY DAY IN THE MORNING 90 Tablet 3 3 Active Gabapentin 100 MG Oral Capsule (Neurontin)Indica tions:New onset of headaches after age 50 TAKE 2 CAPSULES TWICE DAILY 120 Capsule 5 3 Active Levothyroxine Sodium 100 MCG Oral Tablet (Levoxyl)Indicati ons:Hypothyroidis m due to acquired atrophy of thyroid TAKE 1 TABLET BY MOUTH EVERY DAY AT LEAST 30 MIN BEFORE BREAKFAST OR OTHER MEDICATION 90 Tablet 3 3 Active buPROPion HCl ER (XL) 150 MG Oral Tablet Extended Release 24 Hour (Wellbutrin XL) TAKE 1 TABLET (150 MG) BY MOUTH IN THE MORNING. 90 Tablet 3 3 Active hydroCHLOROthiazi de 25 MG Oral Tablet (Hydrodiuril)Lavinia cations:Essential (primary) hypertension TAKE 1 TABLET BY MOUTH EVERY DAY IN THE MORNING 90 Tablet 3 3 Active Insulin Glargine-yfgn 100 UNIT/ML Subcutaneous SolutionIndicatio ns:Type 2 diabetes mellitus with hemoglobin A1c goal of less than 8.0% ([facility]),Type 2 diabetes mellitus with stage 3b chronic kidney disease, with long-term current use of insulin (HCC) INJECT 30 UNITS SUBCUTANEOUSLY AT BEDTIME 30 mL 5 3 Active Insulin Glargine-yfgn 100 UNIT/ML Subcutaneous SolutionIndicatio ns:Type 2 diabetes mellitus with hemoglobin A1c goal of less than 8.0% ([facility]),Type 2 diabetes mellitus with stage 3b chronic kidney disease, with long-term current use of insulin ([facility]) INJECT 30 UNITS SUBCUTANEOUSLY AT BEDTIME 30 mL 5 3 05/01/20 23 Discontinu ed(Refill) documented as of this encounter (statuses as of 05/01/2023) Active Problems Problem Noted Date Diagnosed Date [...] as of this encounter (statuses as of 05/01/2023) Resolved Problems Problem Noted Date Diagnosed Date [...] as of this encounter (statuses as of 05/01/2023) Immunizations Name Administration Dates Next Due COVID-19 mRNA, LNP-s, No Pre serve, 2-Dose Series ([employer]) 02/16/2021,08/05/2020,07/15/2020 Covid-19, Mrna, Lnp-s, Pf, B ivalent, [...] encounter Miscellaneous Notes * Telephone Encounter - Marya Mandel RPh - 05/01/2023 3:04 PM EST Prescription resent as requested. Marya Mandel, Pharm D, BCACP Clinical Pharmacist 05/01/2023, 3:04 PM * Telephone Encounter - Mallory Monet, sewing machine attachment tester - 05/01/2023 3:02 PM EST Caller's name: Hakan Rowland from [facility] Preferred call back number(OFFICE NUMBER FOR ): Reason for call: the insulin glargine prescription did not transmit properly (on their side), he isasking if you will re-send it, thank you. Mallory Monet MA Weight Control Engineer [facility] (formerly [facility]) [address] [facility] [phone] [place] [phone] ext [phone] documented in this encounter Plan of Treatment Upcoming Encounters Date Type Department Care Team (Late st Contact Info) Description 06/12/2023 9:00 AM EST Office Visit Pharmacy, [facility] [address] [place] [address] [facility] [address] [place] [address] 07/25/2023 10:00 AM EST Office Visit Sleep Disorders Ctr [facility] [address] [place] [phone] Patrica Adorno DO [address] [place] [address] 07/28/2023 10:20 AM EDT Office Visit Family Practice [facility] [address] [place] [address] Hi Mcdaniels MD [address] [place] [address] 09/29/2023 9:45 AM EDT Office Visit Dermatology [place] [facility] [place] [address] [place] [address] Orestes Slaughter MD 200 [facility] [address] 12/02/2023 2:00 PM EDT Telemedicine Neurosurgery, [place] [address] [place] [address] Zackary Nash MD [address] [place] [address] 01/15/2024 10:20 AM EDT Office [facility] [place] 200 [facility] [address] AcostaColleen richter MD [address] [place] [address] 01/30/2024 8:30 AM EDT Nurse Only Ancillary Deionjulianne [facility] [place] [address] [place] [address] [facility], Nurse Annual Wellness [facility] [address] [place] [address] Scheduled Procedures Name Priority Associated Diagnoses Date/Ti [...] Additional history exists CKD HGB USE SMARTSET 14248 07/15/202307/15, 11/20/2021, 11/16/2021, Additional history exists Diabetic Foot Exam 07/25/2023 07/24/2022, 0 11/06/2020, 11/25/2019, Additional history exists GFR 07/28/2023 01/27/2023, 06/20, 05/08/2022, Additional history exists HbA1c 08/19/2023 02/17/2023, 09/17, 07/15/2022, Additional history exists TSH 10/10/2023 10/09/2022, 07/17, 06/13/2021, Additional history exists Depression Screening 01/28/2024 01/27/2023 Diabetic Eye Exam 02/22/2024 02/21/2023, , 02/05/2021, Additional history exists CKD PHOS USE SMARTSET 47016 03/04/202402/16, 07/15/2022, 12/18/2020, Additional history exists DXA [...] A1c goal of less than 8.0% (HCC) Type 2 diabetes mellitus with stage 3b chronic kidney disease, with long-term current use of insulin (HCC) documented in this encounter Care Teams Principal Embedded Software Engineer Relationship Specialty Start Date End Date Hi Mcdaniels MD [address] [place] [address] PCP - General Family Medicine 10/26/21 documented as of this encounter
[2023-08-02 04:04] LABS: ANTI-Xa, UFH(UnfractionatedHep 0.74 IU/ml (0.3-0.7)
--- NOTE | 2023-08-02 07:15 | Electrocardiogram Report ---
Test Reason : Blood Pressure : / mmHG Vent. Rate : 096 BPM Atrial Rate : 096 BPM P-R Int : 144 ms QRS Dur : 082 ms QT Int : 456 ms P-R-T Axes : 040 -19 115 degrees QTc Int : 576 ms Sinus rhythm with Premature atrial complexes Septal infarct , age undetermined Prolonged QT Abnormal ECG When compared with ECG of 04-MAR-2023 14:30, T wave inversion now evident in Lateral leads QT has lengthened Premature atrial complexes are now Present Septal infarct is now Present Confirmed by Cecil Vásquez ([id number]) on 08/02/2023 7:15:02 AM Referred By: REFERRED SELF Confirmed By:Cecil Vásquez
--- NOTE | 2023-08-02 07:33 | Electrocardiogram Report ---
Test Reason : Blood Pressure : / mmHG Vent. Rate : 068 BPM Atrial Rate : 068 BPM P-R Int : 150 ms QRS Dur : 080 ms QT Int : 552 ms P-R-T Axes : 060 000 108 degrees QTc Int : 586 ms Normal sinus rhythm T wave abnormality, consider lateral ischemia Prolonged QT Abnormal ECG When compared with ECG of 31-JUL-2023 17:39, Criteria for Septal infarct are no longer Present T wave inversion more evident in Anterior leads Confirmed by Cecil Vásquez ([id number]) on 08/02/2023 7:33:49 AM Referred By: REFERRED SELF Confirmed By:Cecil Vásquez
[2023-08-02] MEDS: ROSUVASTATIN CALCIUM 10 MG TAB PO SCH (07:53)
[2023-08-02] MEDS: CITALOPRAM 40 MG TAB PO SCH (07:57)
[2023-08-02] MEDS: buPROPion XL 150 MG TABCR PO SCH (07:58)
[2023-08-02] MEDS: LANTUS PER UNIT CHARGE SC SCH (08:31)
--- NOTE | 2023-08-02 11:53 | Cardiology Progress Note ---
Date of Service August 02, 2023 Assessment & Plan (1) DKA (diabetic ketoacidosis): (2) Shortness of breath: (3) Hypokalemia: (4) Abnormal echocardiogram: (5) Dyslipidemia, goal LDL below 70: Plan 78-year-old female admitted on July 31, 2023 with diabetic ketoacidosis. Possi alisson triggered by upper respiratory tract infection although cardiac ischemia a concern given ECG changes. Echocardiogram reveals possible, subtle apical anteroseptal hypokinesis although IV, ultrasonic contrast was not utilized. There is no significant high- sensitivity troponin elevation or reports of anginal symptoms. Patient currently treated with aspirin, beta-patito, statin, and unfractionated heparin for the past 24 hours. She remains chest pain-free at this time. Recommend continue IV heparin for an additional 24 hours. Repeat limited resting 2D transthoracic echocardiogram with ultrasonic contrast for better visualization of left ventricular endocardium and regional wall motion. Further recommendations ending review of imaging and ongoing clinical assessment. Admission and Anticipated Discharge Date Admission Date: July 31, 2023 Subjective Patient seen examined the bedside. Poor historian. Denies chest discomfort or heaviness. Telemetry revealing sinus rhythm in the 60s. No dysrhythmias. No significant high-sensitivity troponin elevation. Heparin infusion initiated yesterday due to ECG changes and possible small apical wall motion abnormality per echocardiogram. Review of Systems Review of Systems: All systems reviewed & are unremarkable except as noted in Subjective Physical Exam Constitutional: well nourished and + obese; no acute distress Respiratory: no respiratory distress, no labored breathing and no retractions Auscultation: no crackles, no rales, no rhonchi and no wheezes Cardiovascular: Rate/Rhythm: regular rate and regular rhythm Heart Sounds: normal S1 and normal S2; no murmur Vessels: no JVD Extremities: no edema Gastrointestinal (Abdomen): Inspection/Auscultation: normal bowel sounds; abdomen not distended Percussion/Palpation: abdomen soft; abdomen nontender, no guarding and abdomen not rigid Neurologic: CN's II-XI intact bilaterally and moves all extremities Results & Data Vital Signs (Past 12 Hours) Vital Signs Temp Pulse Pulse Resp BP Pulse Ox O2 Del Method 08/02/23 11:38 36.6 C 66 18 155/74 H 100 Room Air 08/02/23 08:35 61 08/02/23 07:36 36.6 C 69 20 152/84 H 100 Room Air 08/02/23 07:08 Room Air 08/02/23 03:38 71 21 98 08/02/23 03:06 36.4 C L 72 19 157/77 H 97 Room Air Laboratory Results Cardiac Enzymes 08/01/23 08/01/23 Range/Units 11:35 17:04 Troponin I High Sens 22.4 H 19.7 H (0-14) pg/ml Comprehensive Metabolic Panel 08/01/23 Range/Units 11:35 Sodium 138 (136-145) mmol/L Potassium 4.1 (3.5-5.1) mmol/L Chloride 105 (98-107) mmol/L Carbon Dioxide 25 (21-32) mmol/L BUN 21 (6-23) mg/dl Creatinine 1.29 H (0.6-1.2) mg/dl Glucose 127 H (70-99(Fasting)) mg/dl Calcium 8.3 L (8.6-10.3) mg/dl Intake and Output 08/01/23 08/02/23 08/02/23 22:59 06:59 14:59 Intake Total 1307.6 / 3740.003 1145.333 / 3740.003 1357.5 / 1357.5 Balance 1307.6 / 3739.003 1145.333 / 3739.003 1357.5 / 1357.5 Intake: IV 1187.6 / 3620.003 1145.333 / 3620.003 1357.5 / 1357.5 Heparin Sodium/Dextrose 25,000 167.6 / 292.933 125.333 / 292.933 units In 500 ml @ 950 UNITS/HR 19 mls/hr IV .Q24H [facility] Rx#: [id number] Potassium Chloride 40 meq In 1020 / 2040 1020 / 2040 1357.5 / 1357.5 Sodium Chloride 0.9% 1,000 ml @ 150 mls/hr IV .[id number] [facility] Rx#: [id number] Oral 120 / 120 Other: # Unmeasured Voids 1 1 1 Weight 94.6 kg Weight Measurement Method Standing Scale
--- NOTE | 2023-08-02 13:33 | Electrocardiogram Report ---
Test Reason : Blood Pressure : / mmHG Vent. Rate : 064 BPM Atrial Rate : 064 BPM P-R Int : 132 ms QRS Dur : 084 ms QT Int : 462 ms P-R-T Axes : 036 011 082 degrees QTc Int : 476 ms Normal sinus rhythm Nonspecific T wave abnormality Prolonged QT Abnormal ECG When compared with ECG of 01-AUG-2023 17:54, (unconfirmed) No significant change was found Confirmed by Zurdo Montiel ([id number]) on 08/02/2023 1:33:26 PM Referred By: REFERRED SELF Confirmed By:Zurdo Montiel
--- NOTE | 2023-08-02 13:42 | Electrocardiogram Report ---
Test Reason : Blood Pressure : / mmHG Vent. Rate : 069 BPM Atrial Rate : 069 BPM P-R Int : 128 ms QRS Dur : 088 ms QT Int : 466 ms P-R-T Axes : 019 010 102 degrees QTc Int : 499 ms Normal sinus rhythm Nonspecific T wave abnormality Prolonged QT Abnormal ECG When compared with ECG of 01-AUG-2023 03:22, (unconfirmed) Nonspecific T wave abnormality no longer evident in Inferior leads T wave inversion less evident in Anterolateral leads QT has shortened Confirmed by Zurdo Montiel ([id number]) on 08/02/2023 1:41:43 PM Referred By: REFERRED SELF Confirmed By:Zurdo Montiel
--- NOTE | 2023-08-02 15:20 | Hospitalist Progress Note ---
Date of Service August 02, 2023 Assessment & Plan (1) DKA (diabetic ketoacidosis): Plan: 78-year-old female with past med history significant for type 2 diabetes, CKD stage III, hyperlipidemia, hypothyroidism, sleep apnea, hypertension, morbid obesity, mixed stress and urge incontinence, degenerative disc disease, history of meningioma, history of episodic tension headache, depression with anxiety, mild cognitive impairment presents with shortness of breath and found to be in DKA. Was reported to have chest pain on admission Was seen by PCP by telemedicine on 07/30/23 for cough and seems prescribed prednisone short course but patient does not remember taking prednisone. DKA On admission, labs showed AGAP 18, bicarb of 20, BG 506, K of 3.1 Patient was started on insulin drip and IVF for DKA, now resolved Transitioned off insulin drip to sq insulin HbA1c 10.3 DM educator consult Continue DM education for patient and daughter as well considering patient's cognitive impairment Glycemic pharmacy on board Shortness of breath, Cough May be related to recent URI in the house per conversation between Cardiology team and daughter Chest x-ray did not show acute findings D-dimer 720 but in normal range when adjusted to age Lower extremity Doppler is negative for DVT VQ scan: Low probability for PE Remains on room air Chest pain Mildly elevated troponin EKG noted TWI in V2, I, aVL and other nonspecific TW changes TTE noted mild concentric LVH, small anteroseptal wall motion abnormality with subtle hypokinesis of the apical segment of anteroseptum, EF of 60 to 65%. Spot Machine Operator does not think that myocardial infarction is a precipitant of DKA. DKA likely precipitated in the setting of recent steroid for respiratory illness. Spot Machine Operator recommend managing conservatively based on patient's medical problems, cognitive status. Currently on heparin drip to complete 48h Continue aspirin and home statin changed from lovastatin to rosuvastatin Hypokalemia and hypomagnesia Repleted and normalized Monitor electrolytes Prolonged QTc Likely from meds Monitor for now Obesity Obstructive sleep apnea CPAP nightly ALLIE on CKD stage III Presenting creatinine 1.5 Baseline seems around 1.2-1.3 F/u labs Hypertension Home HCTZ on hold Depression with anxiety Resume home citalopram and bupropion Monitor QTc Sinusitis No active signs of active bacterial infection at this time Stop Augmentin and monitor Supportive care Hypothyroidism On Synthroid Hyperlipidemia On statin DVT prophylaxis Lovenox Disposition Telemetry Full code I spent a total of 45 minutes coordinating, documenting and providing care for this patient excluding time spent in performance of separately billed services Admission and Anticipated Discharge Date Admission Date: July 31, 2023 Subjective Patient seen and examined. Patient reports generalized weakness. Denies chest pain, shortness of breath Reports mild cough Poor historian Physical Exam Constitutional: + well hydrated; no acute distress Eyes: PERRL, conjunctivae normal, anicteric sclerae ENMT: external ear and nose normal, oropharynx normal Respiratory: normal respiratory effort; no respiratory distress Diminished breath sounds Cardiovascular: Rate/Rhythm: regular rate and regular rhythm S1 S2 Gastrointestinal (Abdomen): normal bowel sounds, soft, nontender, no hepatosplenomegaly Neurologic: PERRL, EOMI, accommodation nl, no face palsy, no dysarthria Psychiatric: Orientation: alert, oriented to person, oriented to place and cooperative; + not oriented to time Results & Data Results & Data Vital Signs (Past 12 Hours) Vital Signs Temp Pulse Pulse Resp BP Pulse Ox O2 Del Method 08/02/23 11:38 36.6 C 66 18 155/74 H 100 Room Air 08/02/23 08:35 61 08/02/23 07:36 36.6 C 69 20 152/84 H 100 Room Air 08/02/23 07:08 Room Air 08/02/23 03:38 71 21 98 Laboratory Results Abnormal lab results 08/01/23 08/01/23 08/01/23 Range/Units 17:04 17:46 19:51 Heparin Anti-Xa, Unfract 0.93 H* (0.3-0.7) IU/ml POC Glucose 171 H (70-99) mg/dl Troponin I High Sens 19.7 H (0-14) pg/ml 08/01/23 08/02/23 08/02/23 Range/Units 20:17 02:56 04:16 Heparin Anti-Xa, Unfract 0.74 H* (0.3-0.7) IU/ml POC Glucose 181 H 107 H (70-99) mg/dl Troponin I High Sens (0-14) pg/ml 08/02/23 08/02/23 Range/Units 07:05 11:10 Heparin Anti-Xa, Unfract (0.3-0.7) IU/ml POC Glucose 121 H 131 H (70-99) mg/dl Troponin I High Sens (0-14) pg/ml
[2023-08-02 16:32] LABS: Hematocrit (blood only) 34.8 % (37.0-47.0); Mean Corpuscular Hemoglobin 26.6 pg (25.0-34.0); Mean Corpuscular Hgb Conc 31.6 g/dL (32.0-36.0); Mean Corpuscular Volume 84.1 fL (80.0-100.0); Mean Platelet Volume 10.7 fL (9.4-12.4); Platelet Count 266 K/uL (130-400); RDW Coefficient of Variation 13.8 % (11.5-14.5); RDW Standard Deviation 42.5 fL (36.4-46.3); Red Blood Count 4.14 M/uL (4.20-5.40); White Blood Count 9.66 K/ul (4.8-10.8)
[2023-08-02 16:36] LABS: BUN Creatinine Ratio 15.6 (10-20); Calcium 8.1 mg/dl (8.6-10.3); Creatinine Clr Calc Pharmacy 40.6 ml/min; Est GFR (African American) 49.5 ml/min; Est GFR (Non-African American) 42.7 ml/min; Potassium 4.6 mmol/L (3.5-5.1)
[2023-08-03 06:54] LABS: Hematocrit (blood only) 35.7 % (37.0-47.0); Hemoglobin 11.4 g/dl (12.0-16.0); Mean Corpuscular Hgb Conc 31.9 g/dL (32.0-36.0); Mean Corpuscular Volume 84.6 fL (80.0-100.0); Mean Platelet Volume 10.5 fL (9.4-12.4); Platelet Count 260 K/uL (130-400); RDW Coefficient of Variation 13.8 % (11.5-14.5); RDW Standard Deviation 42.3 fL (36.4-46.3); Red Blood Count 4.22 M/uL (4.20-5.40)
[2023-08-03 07:21] LABS: BUN Creatinine Ratio 13.9 (10-20); Calcium 8.3 mg/dl (8.6-10.3); Creatinine Clr Calc Pharmacy 40.6 ml/min; Est GFR (African American) 49.5 ml/min; Est GFR (Non-African American) 42.7 ml/min; Magnesium 1.5 mg/dl (1.7-2.4); Phosphorus 3.6 mg/dl (2.5-4.9); Potassium 4.3 mmol/L (3.5-5.1)
[2023-08-03] MEDS: LANTUS PER UNIT CHARGE SC SCH (09:12)
[2023-08-03] MEDS: MAGNESIUM SULFATE / D5W 1 GM/100 ML BAG IV SCH (09:13)
--- NOTE | 2023-08-03 10:58 | Hospitalist Progress Note ---
Date of Service August 03, 2023 Assessment & Plan (1) DKA (diabetic ketoacidosis): Plan: 78-year-old female with past med history significant for type 2 diabetes, CKD stage III, hyperlipidemia, hypothyroidism, sleep apnea, hypertension, morbid obesity, mixed stress and urge incontinence, degenerative disc disease, history of meningioma, history of episodic tension headache, depression with anxiety, mild cognitive impairment presents with shortness of breath and found to be in DKA. Was reported to have chest pain on admission Was seen by PCP by telemedicine on 07/30/23 for cough and seems prescribed prednisone short course but patient does not remember taking prednisone. DKA On admission, labs showed AGAP 18, bicarb of 20, BG 506, K of 3.1 Patient was started on insulin drip and IVF for DKA, now resolved Transitioned off insulin drip to sq insulin HbA1c 10.3 DM educator consult Continue DM education for patient and daughter as well considering patient's cognitive impairment Glycemic pharmacy on board Shortness of breath, Cough May be related to recent URI in the house per conversation between Cardiology team and daughter Chest x-ray did not show acute findings D-dimer 720 but in normal range when adjusted to age Lower extremity Doppler is negative for DVT VQ scan: Low probability for PE Remains on room air Chest pain Mildly elevated troponin EKG noted TWI in V2, I, aVL and other nonspecific TW changes TTE noted mild concentric LVH, small anteroseptal wall motion abnormality with subtle hypokinesis of the apical segment of anteroseptum, EF of 60 to 65%. Physician Asst does not think that myocardial infarction is a precipitant of DKA. DKA likely precipitated in the setting of recent steroid for respiratory illness. Physician Asst recommend managing conservatively based on patient's medical problems, cognitive status. Currently on heparin drip to complete 48h today Continue aspirin and home statin changed from lovastatin to rosuvastatin Hypokalemia and hypomagnesia Repleted and normalized Monitor electrolytes Prolonged QTc Likely from meds Monitor for now Obesity Obstructive sleep apnea CPAP nightly ALLIE on CKD stage III Presenting creatinine 1.5 Baseline seems around 1.2-1.3 Cr is 1.22 today Hypertension Home HCTZ on hold Depression with anxiety Continue home citalopram and bupropion Monitor QTc Sinusitis No active signs of active bacterial infection at this time Stop Augmentin and monitor Supportive care Hypothyroidism On Synthroid Hyperlipidemia On statin DVT prophylaxis Lovenox Disposition Telemetry Full code I called daughter Brianna (Home phone [phone] under patient, not the one listed under daughter) I updated her. She acknowledged patient has cognitive impairment. She stated patient manages her own meds. Daughter lives with patient. I provided some education regarding patient's diabetes and need for daughter to help manage her meds going forward. She agreed to this DM educator will reach out to her for more education as well. I spent a total of 50 minutes coordinating, documenting and providing care for this patient excluding time spent in performance of separately billed services Admission and Anticipated Discharge Date Admission Date: July 31, 2023 Subjective Patient seen and examined Patient is awake, alert and oriented to person and place only Poor historian Reports generalized weakness Reports mild cough Denied chest pain or shortness of breath No fever, chills, nausea, vomiting, dysuria, freq, urgency Physical Exam Constitutional: + well hydrated; no acute distress Eyes: PERRL, conjunctivae normal, anicteric sclerae ENMT: external ear and nose normal, oropharynx normal Respiratory: normal respiratory effort; no respiratory distress Auscultation: lungs clear to auscultation bilaterally Cardiovascular: Rate/Rhythm: regular rate and regular rhythm S1 S2 Gastrointestinal (Abdomen): normal bowel sounds, soft, nontender, no hepatosplenomegaly Neurologic: PERRL, EOMI, accommodation nl, no face palsy, no dysarthria Psychiatric: Orientation: alert, oriented to person, oriented to place and cooperative; + not oriented to time Results & Data Results & Data Vital Signs (Past 12 Hours) Vital Signs Temp Pulse Pulse Resp BP BP Pulse Ox 08/03/23 08:26 08/03/23 08:00 59 L 08/03/23 07:54 36.6 C 66 18 136/62 98 08/03/23 02:49 36.6 C 68 18 136/62 98 08/02/23 23:34 61 O2 Del Method 08/03/23 08:26 Room Air 08/03/23 08:00 08/03/23 07:54 Room Air 08/03/23 02:49 Room Air 08/02/23 23:34 Laboratory Results Abnormal lab results 08/02/23 08/02/23 08/02/23 Range/Units 15:54 16:10 19:57 RBC 4.14 L (4.20-5.40) M/uL Hgb 11.0 L (12.0-16.0) g/dl Hct 34.8 L (37.0-47.0) % MCHC 31.6 L (32.0-36.0) g/dL Chloride 111 H (98-107) mmol/L Creatinine 1.22 H (0.6-1.2) mg/dl POC Glucose 105 H 107 H (70-99) mg/dl Calcium 8.1 L (8.6-10.3) mg/dl Magnesium (1.7-2.4) mg/dl 08/03/23 Range/Units 06:13 RBC (4.20-5.40) M/uL Hgb 11.4 L (12.0-16.0) g/dl Hct 35.7 L (37.0-47.0) % MCHC 31.9 L (32.0-36.0) g/dL Chloride 111 H (98-107) mmol/L Creatinine 1.22 H (0.6-1.2) mg/dl POC Glucose (70-99) mg/dl Calcium 8.3 L (8.6-10.3) mg/dl Magnesium 1.5 L (1.7-2.4) mg/dl
--- NOTE | 2023-08-03 11:27 | Cardiology Progress Note ---
Date of Service August 03, 2023 Assessment & Plan (1) DKA (diabetic ketoacidosis): (2) Shortness of breath: (3) Hypokalemia: (4) Abnormal echocardiogram: (5) Dyslipidemia, goal LDL below 70: Plan 78-year-old female admitted on July 31, 2023 with diabetic ketoacidosis. Possi alisson triggered by upper respiratory tract infection although cardiac ischemia a concern given ECG changes. Initial echocardiogram 08/01/2023 reveals possible, subtle apical anteroseptal hypokinesis although IV, ultrasonic contrast was not utilized. Repeat limited echocardiogram performed this a.m. with use of ultrasonic contrast demonstrates normal wall motion. There is no significant high-sensitivity troponin elevation or reports of anginal symptoms. Recommend discontinue IV heparin. Continue metoprolol succinate, rosuvastatin, and low-dose aspirin. Outpatient cardiology follow-up and possible pharmacologic nuclear stress testing for further risk stratification. Admission and Anticipated Discharge Date Admission Date: July 31, 2023 Subjective Patient seen examined the bedside. Poor historian. Denies chest discomfort. Telemetry reveals sinus in the 60s. No orthopnea, PND, edema, or shortness of breath. Review of Systems Review of Systems: All systems reviewed & are unremarkable except as noted in Subjective Physical Exam Constitutional: well nourished and + obese; no acute distress Respiratory: no respiratory distress, no labored breathing and no retractions Auscultation: no crackles, no rales, no rhonchi and no wheezes Cardiovascular: Rate/Rhythm: regular rate and regular rhythm Heart Sounds: normal S1 and normal S2; no murmur Vessels: no JVD Extremities: no edema Gastrointestinal (Abdomen): Inspection/Auscultation: normal bowel sounds; abdomen not distended Percussion/Palpation: abdomen soft; abdomen nontender, no guarding and abdomen not rigid Neurologic: CN's II-XI intact bilaterally and moves all extremities Results & Data Vital Signs (Past 12 Hours) Vital Signs Temp Pulse Pulse Resp BP BP Pulse Ox 08/03/23 08:26 08/03/23 08:00 59 L 08/03/23 07:54 36.6 C 66 18 136/62 98 08/03/23 02:49 36.6 C 68 18 136/62 98 08/02/23 23:34 61 O2 Del Method 08/03/23 08:26 Room Air 08/03/23 08:00 08/03/23 07:54 Room Air 08/03/23 02:49 Room Air 08/02/23 23:34 Laboratory Results CBC 08/02/23 08/03/23 Range/Units 15:54 06:13 WBC 9.66 8.20 (4.8-10.8) K/ul RBC 4.14 L 4.22 (4.20-5.40) M/uL Hgb 11.0 L 11.4 L (12.0-16.0) g/dl Hct 34.8 L 35.7 L (37.0-47.0) % Plt Count 266 260 (130-400) K/uL Comprehensive Metabolic Panel 08/02/23 08/03/23 Range/Units 15:54 06:13 Sodium 139 141 (136-145) mmol/L Potassium 4.6 4.3 (3.5-5.1) mmol/L Chloride 111 H 111 H (98-107) mmol/L Carbon Dioxide 23 25 (21-32) mmol/L BUN 19 17 (6-23) mg/dl Creatinine 1.22 H 1.22 H (0.6-1.2) mg/dl Glucose 94 74 (70-99(Fasting)) mg/dl Calcium 8.1 L 8.3 L (8.6-10.3) mg/dl Intake and Output 08/02/23 08/03/23 08/03/23 22:59 06:59 14:59 Intake Total 0 / 0 Balance 0 / 0 Intake: IV 0 / 0 Magnesium Sulfate / D5w 1 gm In 0 / 0 100 ml @ 50 mls/hr IV Q2H [facility] Rx#:[id number] Other: # Unmeasured Voids 1 2 1 Weight 94.937 kg Weight Measurement Method Built [facility]
--- NOTE | 2023-08-03 14:02 | Pharmacy Report ---
Pharmacy Glycemic Short Note 2 - Date of Service August 03, 2023 - Glycemic Short BSG Results (Last 24 hours): 08/02/23 08/02/23 08/02/23 15:54 16:10 19:57 Glucose 94 POC Glucose 105 H 107 H 08/03/23 08/03/23 08/03/23 06:13 07:26 11:20 Glucose 74 POC Glucose 83 128 H OUTPATIENT ANTIDIABETIC REGIMEN: * Lantus 30 units SC HS * Januvia 50 mg PO QAM * Trulicity 0.75 mg SC weekly * Apidra insulin HbA1C= 10.3% on 08/01/23 ASSESSMENT: 08/02: * BSGs [phone] mg/dL yesterday with 25 units of basal and 11 units of prandial insulin * Fasting this morning 83 mg/dL- reduced lantus ~25% this morning * Heparin infusion (D5w) was stopped- Loosened novolog back to weight based stress of 2- monitor 07/31 * 78 y/o F admitted for DKA. History of Type 2 diabetes managed on above home meds. Also with history of CKD -stage 3. * On admission, BSG was 509 mg/dl, insulin drip was started last night. BSGs trended down to 180 mg/dl and lower this morning. Gap was closed and other labs WNL. Basal dose 20 units x1 given this AM (between stress of 2 and 3). Insulin drip discontinued. * IV fluids changed to remove dextrose. * Pre-lunch BSG = 142 mg/dl. Novolog parameters ordered based on stress between 2 and 3. * Basal dose scale added at HS in case BSGs trended up. Also added overnight checks. * Currently patient is still NPO. PLAN FOR INPATIENT GLYCEMIC CONTROL: * Hold outpatient diabetes medications * Basal insulin * Lantus 18 units qAM * Bolus insulin * NovoLog per scale ACHS or Q6hrs while NPO * Goal Range: Low 110 mg/dL - High 140 mg/dL * Correction Factor: 25 mg/dL/unit * Nutritional / Prandial insulin per carb ratio of 1 unit per 8 grams CHO consumed
[2023-08-04 08:13] LABS: Hematocrit (blood only) 36.3 % (37.0-47.0); Hemoglobin 11.5 g/dl (12.0-16.0); Mean Corpuscular Hemoglobin 26.3 pg (25.0-34.0); Mean Corpuscular Hgb Conc 31.7 g/dL (32.0-36.0); Mean Corpuscular Volume 82.9 fL (80.0-100.0); Mean Platelet Volume 10.2 fL (9.4-12.4); Platelet Count 274 K/uL (130-400); RDW Coefficient of Variation 13.8 % (11.5-14.5); RDW Standard Deviation 41.9 fL (36.4-46.3); Red Blood Count 4.38 M/uL (4.20-5.40); White Blood Count 7.71 K/ul (4.8-10.8)
[2023-08-04 08:33] LABS: BUN Creatinine Ratio 12.6 (10-20); Calcium 8.6 mg/dl (8.6-10.3); Creatinine Clr Calc Pharmacy 36.6 ml/min; Est GFR (African American) 43.8 ml/min; Est GFR (Non-African American) 37.8 ml/min; Magnesium 1.8 mg/dl (1.7-2.4); Phosphorus 4.2 mg/dl (2.5-4.9); Potassium 4.5 mmol/L (3.5-5.1)
--- NOTE | 2023-08-04 09:55 | Electrocardiogram Report ---
Test Reason : Blood Pressure : / mmHG Vent. Rate : 075 BPM Atrial Rate : 075 BPM P-R Int : 164 ms QRS Dur : 080 ms QT Int : 436 ms P-R-T Axes : 047 000 104 degrees QTc Int : 486 ms Normal sinus rhythm Possible Anterior infarct , age undetermined T wave abnormality, consider lateral ischemia Abnormal ECG When compared with ECG of 02-AUG-2023 03:55, T wave inversion now evident in Lateral leads Confirmed by Willian Metcalf ([id number]) on 08/04/2023 9:55:14 AM Referred By: REFERRED SELF Confirmed By:Jatin Metcalf
--- NOTE | 2023-08-04 15:48 | Discharge Summary ---
Date of Service August 04, 2023 Admission HPI Per Admitting Provider 78-year-old female with past med history significant for type 2 diabetes, CKD stage III, hyperlipidemia, hypothyroidism, sleep apnea, hypertension, morbid obesity, mixed stress and urge incontinence, degenerative disc disease, history of meningioma, history of episodic tension headache, depression with anxiety, mild cognitive impairment presents with shortness of breath starting today and found to be in DKA. Patient somewhat restless. Difficult to get history from patient. Complains of shortness of breath. Mild chest pain. Denies nausea ,denies abdominal pain. Somewhat constipated. Not making much urine as per patient .having mild headache. Somewhat nausea. Seems seen by PCP by telemedicine yesterday for chronic cough and seems prescribed prednisone short course but patient does not remember taking prednisone. Saturating 100% room air. Hemodynamics are okay. Past medical history. As mentioned above Past surgical history. Left total knee arthroplasty. Left carpal tunnel surgery. Colonoscopy. Ligation of oviducts. Lumbar spine fusion surgery. Bilateral cataracts. Tonsillectomy adenoidectomy. Social history. No smoking. No alcohol use. No drug use. Family history. Mother had stomach cancer. Gallbladder disease. Father had diabetes. Gallbladder disease. Valve replacement. Stroke. Brother has Parkinson disease. Admission Exam Per Admitting Provider General- Somewhat restless, not in acute distress Head- atraumatic Eyes- PERRL. ENT- oropharynx clear Neck- supple, no JVD. Lungs- clear to auscultation no wheezing or crackles. Heart- regular rhythm; no murmur, no gallop. Abdomen- normal bowel sounds, soft, nontender, no distension Extremities- b/l pretibial edema present , no erythema seen Neuro- alert, oriented , restless, PERRL,; no facial palsy; no dysarthria; obeys simple commands, moves extremities. Skin- warm & dry Principal Diagnosis Diabetes ketoacidosis Poorly controlled diabetes mellitus Chest pain Discharge Exam Constitutional + well hydrated; no acute distress Eyes PERRL, conjunctivae normal, anicteric sclerae ENMT external ear and nose normal, oropharynx normal Respiratory normal respiratory effort; no respiratory distress Auscultation: lungs clear to auscultation bilaterally Cardiovascular Rate/Rhythm: regular rate and regular rhythm S1 S2 Gastrointestinal (Abdomen) normal bowel sounds, soft, nontender, no hepatosplenomegaly Neurologic PERRL, EOMI, accommodation nl, no face palsy, no dysarthria Psychiatric Orientation: alert, oriented to person, oriented to place and cooperative; + not oriented to time Discharge Data Allergies Allergy/AdvReac Type Severity Reaction Status Date / Time atorvastatin [From Lipitor] AdvReac Mild Bad dreams Verified 07/31/23 22:35 nitrofurantoin AdvReac Mild GI Upset Verified 07/31/23 22:35 adhesive AdvReac Unknown Skin Verified 07/31/23 22:35 irritations Consultations 07/31/23 19:25 ED Decision to Admit Stat 08/01/23 08:00 Consult Cardiology Routine Ordered Studies 07/31/23 21:10 CT head/brain wo con Stat US venous doppler LE BI Stat Diabetes Follow up Diabetes Follow-up Needed for HgbA1c >9% Hospital Course (1) DKA (diabetic ketoacidosis): 78-year-old female with past med history significant for type 2 diabetes, CKD stage III, hyperlipidemia, hypothyroidism, sleep apnea, hypertension, morbid obesity, mixed stress and urge incontinence, degenerative disc disease, history of meningioma, history of episodic tension headache, depression with anxiety, mild cognitive impairment presents with shortness of breath and found to be in DKA. Was reported to have chest pain on admission Was seen by PCP by telemedicine on 07/30/23 for cough and seems prescribed prednisone short course but patient does not remember taking prednisone. DKA On admission, labs showed AGAP 18, bicarb of 20, BG 506, K of 3.1 Patient was started on insulin drip and IVF for DKA, now resolved Transitioned off insulin drip to sq insulin HbA1c 10.3 Educated patient and daughter regarding diabetes management Daughter to take over patient's insulin/meds management considering patient's cognitive impairment I called daughter again today to update on plans. She agreed to help manage patient's meds Shortness of breath, Cough May be related to recent URI in the house per conversation between Cardiology team and daughter Chest x-ray did not show acute findings D-dimer 720 but in normal range when adjusted to age Lower extremity Doppler is negative for DVT VQ scan: Low probability for PE Remains on room air Chest pain Mildly elevated troponin EKG noted TWI in V2, I, aVL and other nonspecific TW changes TTE noted mild concentric LVH, small anteroseptal wall motion abnormality with subtle hypokinesis of the apical segment of anteroseptum, EF of 60 to 65%. Vocational Examiner does not think that myocardial infarction is a precipitant of DKA. DKA likely precipitated in the setting of recent steroid for respiratory illness. He was managed with IV heparin drip x 48hrs Was started on aspirin, metoprolol and home statin changed from lovastatin to rosuvastatin Per Vocational Examiner's recommendations Patient need to follow up with Cardiology outpatient for possible stress test. Hypokalemia and hypomagnesia Repleted and normalized Monitor electrolytes Prolonged QTc Likely from meds Monitor for now Obesity Obstructive sleep apnea CPAP nightly ALLIE on CKD stage III Presenting creatinine 1.5 Baseline seems around 1.2-1.3 Cr is 1.35 today Hypertension Continue HCTZ Depression with anxiety Continue home citalopram and bupropion Monitor QTc Sinusitis No active signs of active bacterial infection at this time Prednisone stopped Hypothyroidism On Synthroid Hyperlipidemia Lovastatin changed to Rosuvastatin I called daughter Brianna again today I updated her. She acknowledged patient has cognitive impairment. She stated patient manages her own meds. I provided some education regarding patient's diabetes and need for daughter to help manage her meds going forward. She agreed to this Patient needs neuropsych testing for cognitive impairment Advised daughter to follow patient to her appointments Total Time Total Time Spent Total Time Spent (In Minutes): 45 Total Time Includes: Examination of the Patient, Discharge Planning, Medication Reconciliation, Communication With Other Providers and Other Discharge Plan Discharge Items Patient Disposition: Home - Self-Care Reason For Visit: Shortness of breath Discharge Diagnosis: Diabetes ketoacidosis Poorly controlled diabetes mellitus Chest pain Activity: Resume your previous activity Non-emergency contact: Primary Care Provider and Vocational Examiner Call non-emergency contact if: you have any medication questions and your symptoms worsen Follow-up/Referrals: Hi Mcdaniels MD [Primary Care Provider] - (Date & Time 08/08/2023 3:20 PM Provider Hi Mcdaniels MD Department Family [facility] ) Diet: Carb Consistent or DM2, Heart Healthy and Low Sodium (2gm) Addtl Attending Provider Instructions: Mrs Gann. You came to the hospital complaining of shortness of breath You also had chest pain on day of admission. You were evaluated and found to have Diabetes ketoacidosis and poorly controlled diabetes. This was managed. Please ensure close monitoring of your diabetes and follow up with [facility] Diabetes clinic. Please continue your home insulin for now. Please ensure your daughter helps you manage all your medications and medical appointments going forward. You were evaluated by the Vocational Examiner and some adjustments were made to your medications. You were started on Aspirin 81mg daily and metoprolol succinate 12.5mg daily Your lovastatin was changed to Rosuvastatin 10mg daily Stop taking Prednisone Please ensure follow up with your Family doctor, Cardiology and Diabetes clinic. It was a pleasure taking care of you. Pending Studies at Discharge: No Stand-Alone Forms: [facility], Smoking Cessation Medications and DC Order Prescriptions: New aspirin 81 mg Tablet,Delayed Release (Dr/Ec) 81 mg PO QAM Qty: 30 0RF metoprolol succinate 25 mg Tablet Extended Release 24 Hr 12.5 mg PO QAM Qty: 30 0RF rosuvastatin 10 mg Tablet 10 mg PO QAM Qty: 30 0RF Continued (DME) Ravinder Fierro [facility] [place] See Rx Instructions .MEDSUPPLY Qty: 1 0RF Rx Instructions: As directed insulin glargine [Lantus U-100 Insulin] 100 unit/mL Solution 35 unit SUBCUT HS hydrochlorothiazide 25 mg Tablet 25 mg PO QAM levothyroxine 100 mcg Tablet 100 mcg PO DAILYBB Rx Instructions: Take at least 30 min before breakfast or other medication gabapentin 100 mg capsule 200 mg PO BID bupropion HCl 150 mg tablet extended release 24 hr 150 mg PO QAM acetaminophen 500 mg capsule 1,000 mg PO TID PRN (Reason: Headache) Rx Instructions: Take 3 times per day to lessen pain, as needed. cholecalciferol (vitamin D3) 25 mcg (1,000 unit) Tablet 25 mcg PO QAM cyanocobalamin (vitamin B-12) 1,000 mcg Tablet 1,000 mcg PO QAM Multiple Vitamin-Minerals Tablet 1 tab PO Q2D diclofenac sodium 1 % Gel 2 g TOPICAL BID Rx Instructions: APPLY TO BILATERAL KNEES citalopram 40 mg tablet 40 mg PO QAM albuterol sulfate [Proventil HFA] 90 mcg/actuation Hfa Aerosol Inhaler 2 puff INHALATION Q4H PRN (Reason: Shortness Of Breath Or Wheezing) Discontinued lovastatin 40 mg Tablet 40 mg PO HS prednisone 20 mg tablet 40 mg PO .QAM X5DAYS Rx Instructions: BEGIN 07/30/23, END 08/04/23 amoxicillin-pot clavulanate 875-125 mg tablet 1 tab PO [facility] Rx Instructions: BEGIN 07/27/23, END 08/06/23 Discharge Orders: Discharge Order (Routine); Ordered 08/04/23 Ordered By: Ambar Cortez/Other Patient Handouts: Managing Type 2 Diabetes Admission Data Admit Date/Time: 07/31/23 21:06 Attending Provider: Ambar Pereira I. Admit Provider: Shabbir Cadet Primary Care Provider: Hi Mcdaniels Other Providers: Shabbir Cdaet; Enrique Callejas
== END 2023-08-04 17:53 | disposition home or self-care (01) | DRG 638 ==
LOC: ED 17:26 → 2S 21:06

== ENCOUNTER 2023-11-24 12:30 | Inpatient (IN) ==
--- NOTE | 2023-11-24 12:41 | ED Triage Note ---
Date of Service November 24, 2023 Provider in Triage Author: Chan Bowles. History of Present Illness This patient was briefly evaluated while in triage. An abbreviated physical exam was performed. This patient is a 78-year-old Female who presents to the ED for evaluation of her son is concerned she has been more confused over the past 2 days. Patient states she was just put on medications a few weeks ago by PCP. Denies any chest pain, headache, vision changes, or weakness. Physical Exam CONSTITUTIONAL: in no acute pain or distress, resting comfortably SKIN: pink, warm, dry CARDIAC: regular rate and rhythm RESPIRATORY: in no respiratory distress, lungs clear to auscultation NEURO: Alert and oriented to person and place. Does appear to be somewhat confused. no other focal neuro deficits. Initial orders for labs and / or imaging were placed and patient was placed directly into a room. Please see further documentation for the full ED course.
[2023-11-24 13:24] LABS: Basophils # (auto) 0.08 K/uL (0.00-0.20); Eosinophils # (auto) 0.15 K/uL (0.00-0.50); Eosinophils % (auto) 1.8 %; Hematocrit (blood only) 38.3 % (37.0-47.0); Hemoglobin 12.3 g/dl (12.0-16.0); Immature Granulocytes # (auto) 0.03 K/uL (0.01-0.20); Immature Granulocytes % (auto) 0.4 %; Lymphocytes # (auto) 1.98 K/uL (1.20-3.40); Lymphocytes % (auto) 24.1 %; Mean Corpuscular Hemoglobin 26.6 pg (25.0-34.0); Mean Corpuscular Hgb Conc 32.1 g/dL (32.0-36.0); Mean Corpuscular Volume 82.9 fL (80.0-100.0); Mean Platelet Volume 10.6 fL (9.4-12.4); Monocytes # (auto) 0.86 K/uL (0.11-0.59); Monocytes % (auto) 10.4 %; Neutrophils # (auto) 5.13 K/uL (1.40-6.50); Neutrophils % (auto) 62.3 %; Platelet Count 252 K/uL (130-400); RDW Coefficient of Variation 13.2 % (11.5-14.5); RDW Standard Deviation 39.8 fL (36.4-46.3); Red Blood Count 4.62 M/uL (4.20-5.40); White Blood Count 8.23 K/ul (4.8-10.8)
[2023-11-24 13:37] LABS: Appearance Urine Clear (Clear); Bacteria Urine Automated None Seen (None Seen); Bilirubin Urine Negative (Negative); Blood Urine Negative (Negative); Cast Urine Automated 0-2 /lpf (0-2); Color Urine Yellow; Glucose Urine UA Negative (Negative); Ketones Urine Negative (Negative); Leukocyte Esterase Urine 1+ (Negative); Nitrite Urine Negative (Negative); Protein Urine Negative (Negative); RBC Urine Automated 0-2 /hpf (0-2); Specific Gravity Urine 1.019 (1.000-1.030); Urobilinogen Urine Negative (Negative); WBC Urine Automated 0-5 /hpf (0-5)
[2023-11-24 13:43] LABS: Albumin Globulin Ratio 1.5 (0.9-2); Albumin Level 4.1 gm/dl (3.4-5.0); BUN Creatinine Ratio 27.1 (10-20); Bilirubin,Total 0.9 mg/dl (0.2-1.0); Calcium 9.3 mg/dl (8.6-10.3); Creatinine Clr Calc Pharmacy 35.2 ml/min; Est GFR (African American) 44.6 ml/min; Est GFR (Non-African American) 38.5 ml/min; Globulin 2.8 gm/dl (2.5-4.0); Magnesium 1.7 mg/dl (1.7-2.4); Potassium 3.9 mmol/L (3.5-5.1); Total Protein 6.9 gm/dl (6.0-8.3)
[2023-11-24 13:57] LABS: Thyroid Stimulating Hormone 0.122 uIu/ml (0.300-4.500)
[2023-11-24 13:59] LABS: Troponin I High Sensitivity 6.2 pg/ml (0-14)
[2023-11-24 14:33] LABS: T4 Free Thyroxine 1.94 ng/dl (0.61-1.60)
--- NOTE | 2023-11-24 14:49 | CT Scan Report ---
CT head/brain wo con CLINICAL HISTORY: 78 years-old Female with confusion. Acute confusion with altered mental status TECHNIQUE: Multiple axial CT images of the head were obtained without contrast. A dose lowering tech nique was utilized adhering to the principles of ALARA. CT DOSE: 547.75 mGy.cm COMPARISON: 07/31/2023, 03/04/2023 FINDINGS: No acute intracranial hemorrhage, midline shift, intra-axial mass, hydrocephalus, territorial ischemi a or abnormal extra-axial collection.There is age-related involutional change. Small left anterior pa rafalcine meningiomas measuring up to 12 mm artery noted. There is no associated mass effect. The calvarium is intact. The paranasal sinuses, mastoid air cells, and middle ear cavities are clear . IMPRESSION: No acute intracranial abnormality. ACT 112: Negative or not required by law. The above report was generated using voice recognition software. It may contain grammatical, syntax o r spelling errors. Electronically signed by: Can Bales M.D. 11/24/2023 2:48 PM
--- NOTE | 2023-11-24 14:56 | Emergency Department Note ---
Impression & Plan Confusion ED Provider Note NAME: VIRGILIO WHATLEY AGE: 78 SEX: F : 1945 ARRIVES VIA: Walk-In INFORMANT: [Patient] ED PROVIDER(S): [Brayan Damon MD] CHIEF COMPLAINT: Altered mental state HISTORY OF PRESENT ILLNESS: The patient is a 78-year-old female who saw her doctors office for a visit 6 days ago. She was to have an MRI several days later as routine follow-up for some findings on previous MRIs. She went the wrong day it seems to the center for the MRI and was in the wrong area. She was confused and there was concern about her safety. She refused any transfer to the hospital. The patient apparently typically lives with her daughter, the daughter is out of town. Her son is currently in [place]. There are notes today talking about the patient's confusion and the concern for her not taking her medications properly or possibly, taking too much of her medications. I talked to the patient about her medications, she is adamant that she has been taking them properly although she says that her son believes she is not. There has been no cough or congestion. She has not had shortness of breath. She denies any urinary complaints. PMHx/PSHx/Social Hx: See Below PHYSICAL EXAM: GENERAL: Patient is in no acute distress. HEENT: No acute trauma, normocephalic atraumatic, mucous membranes moist, no nasal congestion. NECK: No stridor, no adenopathy, no meningismus, trachea is midline. LUNGS: Clear to auscultation bilaterally, no wheeze, no rhonchi, breath sounds equal. HEART: Without murmurs gallops or rubs, regular rate and rhythm. ABDOMEN: Soft, nontender, no peritonitis. EXTREMITIES: No cyanosis, full range of motion of all the joints without pain or difficulty. NEUROLOGIC: Awake and alert, no acute motor or sensory deficits, no focal weakness. Does demonstrate some confusion. Poor historian. SKIN: No jaundice, no diaphoresis. DIFFERENTIAL DIAGNOSIS: Medication noncompliance, medication overdose, electrolyte imbalance, UTI, intracranial bleeding, dementia, among others. EMERGENCY DEPARTMENT PROCEDURES: MEDICAL DECISION MAKING: There is no leukocytosis or worrisome anemia. There is a normal platelet count. Creatinine is mildly elevated, this appears baseline when looking back at previous testing. There is no electrolyte abnormality in need of emergent correction. No concerning liver enzyme elevation. Patient's TSH value was a bit low, the T4 was slightly elevated. She appears to be mildly hyperthyroid. Of note, the patient does take thyroid medication. ECG showed a sinus bradycardia, no obvious acute ischemia. Cardiac enzyme testing x 1 was not consistent with acute cardiac injury. Urinalysis did not show findings of infection. Brain CT showed no acute bleed or mass effect. On exam, the patient did seem somewhat confused about her medications and her activity the last week. I did call and speak with the patient's son. He does feel the patient is taking her medications improperly. The patient is by herself right now as her daughter is out of town until the end of November. Patient's son lives in [place]. Patient is not safe for discharge home. She may have taken extra medications in excess, this could explain some of her increased confusion. Given the circumstances, a hospital stay is warranted. I did speak with case management, the on-call hospitalist was consulted. Prior/Outside records/notes reviewed: [facility] the [facility] and the concerns for her mental state. ECG per my interpretation: Indication was confusion. The ECG shows a sinus bradycardia with some sinus arrhythmia. The rate is 56. There is no acute ST elevation. There is some diffuse nonspecific ST change. No PVCs. The QTc is 478. Continuous Cardiac Monitoring per my interpretation: An order was placed for continuous cardiac monitoring. The monitor shows a rate of 66 with normal sinus rhythm. Imaging/x-ray results per my interpretation: Chronic Medical/Social conditions affecting care: Advanced age. Care/Management discussed with: Case management, the on-call hospitalist. Level of care consideration(s): After review of the information above and other included data: --I believe the patient requires escalation of care to admission DISPOSITION: Admission Past Med/Surg History Problem List (Updated 11/24/23 @ 22:28 by Brayan Damon MD) Confusion (Acute) Chest pain Dyslipidemia, goal LDL below 70 Abnormal echocardiogram DKA (diabetic ketoacidosis) Elevated troponin (Acute) Shortness of breath (Acute) Acute hyperglycemia (Acute) Hypokalemia (Acute) Morbid obesity Acute UTI (Acute) Altered mental status (Acute) UTI (urinary tract infection) Insulin dependent type 2 diabetes mellitus Meningioma Altered mental status Left rotator cuff tear Right knee DJD Status post left knee replacement Diabetes (Chronic) Dyslipidemia (Chronic) HTN (hypertension) (Chronic) Hypothyroidism (Chronic) Depression (Chronic) Carpal tunnel syndrome of left wrist S/P carpal tunnel release Femur fracture, left (Acute) Strain of left quadriceps Ambulatory dysfunction Degenerative arthritis of knee, bilateral Right rotator cuff tear CKD (chronic kidney disease) stage 3, GFR 30-59 ml/min (Chronic) Sleep apnea CPAP (compliant) Medical History Acute metabolic encephalopathy Encounter for pre-operative examination Brain lesion Likely 2 meningiomas per 10/01/21 brain MRI > referred to neurosurgery by PCP (appt scheduled 10/17; S) Hypokalemia Abnormal urinalysis DVT prophylaxis Osteoarthritis Hypothyroidism Diabetes mellitus, type 2 IDDM Depression Hypertension Hyperlipidemia Asthma allergy induced Surgical History Status post left knee replacement Status post total left knee replacement History of carpal tunnel release Right (07/2019) History of lumbar discectomy History of anesthesia reaction Slow to wake History of dilatation and curettage History of bilateral tubal ligation History of colonoscopy History of tooth extraction History of wisdom tooth extraction History of tonsillectomy and adenoidectomy History of bilateral cataract extraction Family History Father Family history of reaction to anesthesia little slow to wake up Family history of diabetes mellitus Family hx colonic polyps Social History Smoking Status: Never smoker Second Hand Exposure: No; Do You Dip or Chew Tobacco: No; Hx Alcohol Use: No Hx Substance Use: No Preferred Language: [place] Islander Communication Ability: Effective Senior Architect Required: No Beliefs That Will Affect Care: None marital status: / Current Living Situation: Family Feels Safe at Home: Yes Assistive Devices: Cane and Walker Allergies Allergies Allergy/AdvReac Type Severity Reaction Status Date / Time atorvastatin [From Lipitor] AdvReac Mild Bad dreams Verified 11/24/23 17:07 nitrofurantoin AdvReac Mild GI Upset Verified 11/24/23 17:07 adhesive AdvReac Unknown Skin Verified 11/24/23 17:07 irritations Home Meds Home Medications Medication Instructions Recorded Confirmed hydrochlorothiazide 25 mg tablet 25 mg PO QAM 10/27/18 11/24/23 insulin glargine 100 unit/mL 25 unit subcut HS 10/27/18 11/24/23 subcutaneous solution (Lantus U-100 Insulin) levothyroxine 100 mcg tablet 100 mcg PO DAILYBB 03/04/21 11/24/23 acetaminophen 500 mg capsule 1,000 mg PO TID PRN Headache 02/21/23 11/24/23 bupropion HCl 150 mg 24 hr tablet, 150 mg PO QAM 02/21/23 11/24/23 extended release gabapentin 100 mg capsule 200 mg PO BID 02/21/23 11/24/23 albuterol sulfate 90 mcg/actuation 2 puff inhalation Q4H PRN 07/31/23 11/24/23 aerosol inhaler (Proventil HFA) Shortness Of Breath Or Wheezing cholecalciferol (vitamin D3) 25 25 mcg PO QAM 07/31/23 11/24/23 mcg (1,000 unit) tablet citalopram 40 mg tablet 40 mg PO QAM 07/31/23 11/24/23 multivitamin with minerals 1 tab PO Q2D 07/31/23 11/24/23 (Multiple Vitamin-Minerals tablet) metformin 500 mg tablet,extended 500 mg PO AMPM 11/24/23 11/24/23 release 24 hr Previous Rx's Medication Instructions Recorded Ravinder Fierro #1 ea 03/04/22 aspirin 81 mg tablet,delayed 81 mg PO QAM #30 tabs 08/04/23 release metoprolol succinate 25 mg 12.5 mg (1/2 x 25 mg) PO QAM #30 08/04/23 tablet,extended release 24 hr tabs rosuvastatin 10 mg tablet 10 mg PO QAM #30 tabs 08/04/23 Results & Data (ED) Vital Signs Vital Signs - 24 hr 11/24/23 12:33 11/24/23 13:05 11/24/23 14:48 Temperature 36.7 C Temperature Source Temporal Artery Scan Pulse Rate 66 60 62 Pulse Rate from SpO2 Sensor Respiratory Rate 18 14 Respiratory Effort / Characteristics Non-Labored Spontaneous Respiratory Depth Normal Blood Pressure 173/88 H 145/66 H Blood Pressure Mean 116 92 Blood Pressure Position Sitting Pulse Oximetry 96 96 Oxygen Delivery Method Room Air Sepsis Recent Fever Within 48 Hours No Sepsis New/Unexplained Change in Mental Status No Sepsis Action Taken by Nursing No Action Required 11/24/23 14:51 11/24/23 14:53 11/24/23 15:03 Temperature Temperature Source Pulse Rate 62 60 Pulse Rate from SpO2 Sensor 60 Respiratory Rate 14 21 Respiratory Effort / Characteristics Respiratory Depth Blood Pressure 145/66 H Blood Pressure Mean 97 Blood Pressure Position Pulse Oximetry 100 Oxygen Delivery Method Sepsis Recent Fever Within 48 Hours Sepsis New/Unexplained Change in Mental Status Sepsis Action Taken by Long-Term Medications Current Medication List: was personally reviewed by me Laboratory Data Attestation: I reviewed the patient's lab results. 11/24/23 13:01 11/24/23 13:01 Lab Results 11/24/23 11/24/23 Range/Units 12:52 13:01 WBC 8.23 (4.8-10.8) K/ul RBC 4.62 (4.20-5.40) M/uL Hgb 12.3 (12.0-16.0) g/dl Hct 38.3 (37.0-47.0) % MCV 82.9 (80.0-100.0) fL MCH 26.6 (25.0-34.0) pg MCHC 32.1 (32.0-36.0) g/dL RDW Std Deviation 39.8 (36.4-46.3) fL RDW Coeff of Jackie 13.2 (11.5-14.5) % Plt Count 252 (130-400) K/uL MPV 10.6 (9.4-12.4) fL Immature Gran % (Auto) 0.4 % Neut % (Auto) 62.3 % Lymph % (Auto) 24.1 % [place] % (Auto) 10.4 % Eos % (Auto) 1.8 % Baso % (Auto) 1.0 % Neut # (Auto) 5.13 (1.40-6.50) K/uL Lymph # (Auto) 1.98 (1.20-3.40) K/uL [place] # (Auto) 0.86 H (0.11-0.59) K/uL Eos # (Auto) 0.15 (0.00-0.50) K/uL Baso # (Auto) 0.08 (0.00-0.20) K/uL Immature Gran # (Auto) 0.03 (0.01-0.20) K/uL Sodium 139 (136-145) mmol/L Potassium 3.9 (3.5-5.1) mmol/L Chloride 101 (98-107) mmol/L Carbon Dioxide 30 (21-32) mmol/L Anion Gap 8 (3-11) BUN 36 H (6-23) mg/dl Creatinine 1.33 H (0.6-1.2) mg/dl Est Cr Clr Drug Dosing 35.2 ml/min Est GFR ( Amer) 44.6 ml/min Est GFR (Non-Af Amer) 38.5 ml/min BUN/Creatinine Ratio 27.1 H (10-20) Glucose 172 H (70-99(Fasting)) mg/dl POC Glucose 174 H (70-99) mg/dl Calcium 9.3 (8.6-10.3) mg/dl Magnesium 1.7 (1.7-2.4) mg/dl Total Bilirubin 0.9 (0.2-1.0) mg/dl AST 11 L (13-39) U/L ALT 9 (7-52) U/L Alkaline Phosphatase 37 (34-104) U/L Troponin I High Sens 6.2 (0-14) pg/ml Total Protein 6.9 (6.0-8.3) gm/dl Albumin 4.1 (3.4-5.0) gm/dl Globulin 2.8 (2.5-4.0) gm/dl Albumin/Globulin Ratio 1.5 (0.9-2) TSH 0.122 L (0.300-4.500) uIu/ml Free T4 1.94 H (0.61-1.60) ng/dl Urine Color Yellow Urine Appearance Clear (Clear) Urine pH 6.0 (4.5-7.5) Ur Specific [place] 1.019 (1.000-1.030) Urine Protein Negative (Negative) Urine Glucose (UA) Negative (Negative) Urine Ketones Negative (Negative) Urine Blood Negative (Negative) Urine Nitrite Negative (Negative) Urine Bilirubin Negative (Negative) Urine Urobilinogen Negative (Negative) Ur Leukocyte Esterase 1+ H (Negative) Urine WBC (Auto) 0-5 (0-5) /hpf Urine RBC (Auto) 0-2 (0-2) /hpf U Hyaline Cast (Auto) 0-2 (0-2) /lpf U Epithel Cells (Auto) 6-10 H (0-2) /hpf Urine Bacteria (Auto) None Seen (None Seen) Administered Medications Gabapentin (Gabapentin 100 Mg Cap) 200 mg PO BID MADYSON Stop: 12/24/23 20:59 Last Admin: 11/24/23 21:37 Dose: 200 mg Documented By: SUNNI Heparin Sodium (Porcine) (Heparin Sod 5,000 Unit/0.5 Ml Vial) 5,000 units SQ Q12 MADYSON Stop: 12/24/23 20:59 Last Admin: 11/24/23 21:35 Dose: 5,000 units Documented By: SUNNI Sodium Chloride (Nss) 1,000 mls @ 80 mls/hr IV .[id number] MADYSON Stop: 11/26/23 05:44 Last Admin: 11/24/23 16:22 Dose: 80 mls/hr Documented By: EDGARD Insulin Aspart (Insulin Aspart Per Unit Charge) 0 units SC ACHS MADYSON Stop: 12/24/23 20:59 Last Admin: 11/24/23 21:34 Dose: 6 units Documented By: SUNNI Co-signed By: JERROD Insulin Glargine (Lantus Per Unit Charge) 25 units SQ HS MADYSON Stop: 12/24/23 20:59 Last Admin: 11/24/23 21:34 Dose: 25 units Documented By: SUNNI Co-signed By: JERROD Multivitamins/Minerals (Cerovite Adv Formula Tab) 1 tab PO Q2D MADYSON Stop: 12/24/23 20:59 Last Admin: 11/24/23 21:38 Dose: 1 tab Documented By: SUNNI Imaging Data Radiologist's Impression: Head CT 11/24/23 13:59 CT head/brain wo con CLINICAL HISTORY: 78 years-old Female with confusion. Acute confusion with altered mental status TECHNIQUE: Multiple axial CT images of the head were obtained without contrast. A dose lowering technique was utilized adhering to the principles of ALARA. CT DOSE: 547.75 mGy.cm COMPARISON: 07/31/2023, 03/04/2023 FINDINGS: No acute intracranial hemorrhage, midline shift, intra-axial mass, hydrocephalus, territorial ischemia or abnormal extra-axial collection.There is age-related involutional change. Small left anterior parafalcine meningiomas measuring up to 12 mm artery noted. There is no associated mass effect. The calvarium is intact. The paranasal sinuses, mastoid air cells, and middle ear cavities are clear. IMPRESSION: No acute intracranial abnormality. ACT 112: Negative or not required by law. The above report was generated using voice recognition software. It may contain grammatical, syntax or spelling errors. Electronically signed by: Can Bales M.D. 11/24/2023 2:48 PM Discharge Plan Visit Data Chief Complaint: Altered Mental Status Stated Complaint: SON FEELS SHE IS NOT COHERENT,TOO MUCH MEDS ED Provider: Brayan Damon Discharge Problem: Confusion Patient Disposition: Admitted As Inpatient Condition: Good Discharge Instructions Interventions: ED Discharge Assessment Last Done: 11/24/23 19:58
--- NOTE | 2023-11-24 16:09 | Electrocardiogram Report ---
Test Reason : Blood Pressure : / mmHG Vent. Rate : 056 BPM Atrial Rate : 056 BPM P-R Int : 152 ms QRS Dur : 088 ms QT Int : 496 ms P-R-T Axes : 033 -04 055 degrees QTc Int : 478 ms Sinus bradycardia with sinus arrhythmia Otherwise normal ECG When compared with ECG of 03-AUG-2023 18:08, T wave inversion no longer evident in Lateral leads Confirmed by Willian Metcalf ([id number]) on 11/24/2023 4:09:37 PM Referred By: Confirmed By:Jatin Metcalf
--- NOTE | 2023-11-24 16:13 | History & Physical Report ---
Date of Service November 24, 2023 Assessment & Plan (1) Altered mental status: Plan: History of mild cognitive impairment Had been living with her daughter without any significant problem She has been alone lately because daughter has gone out of town Noted to be confused occasionally and forgetful to take her medications or even going to wrong places at times Was sent in by the PCP and also the son with the POA for further evaluation and past possible placement Will ask for PT and OT evaluation Will get neurology evaluation while in the hospital (2) Insulin dependent type 2 diabetes mellitus: Plan: History of type 2 diabetes on insulin Says that she has been taking her blood sugar but cannot remember the numbers Will check hemoglobin A1c while in the hospital Put on sliding scale (3) Meningioma: Plan: Recent MRI that was done 1 11/21/2023 showed Left anterior falx meningioma measuring 16 mm x 14 mm in the coronal plane with mild bridging through the falx to the right and Slightly more superiorly there is another meningioma measuring 11 mm X 7 mm with incidental DVA in the left lobe and no new meningioma CT scan today did not show any acute abnormality (4) Hypothyroidism: Plan: Her TSH low and free T4 is slightly elevated Hold her thyroxine for now (5) Dyslipidemia: (6) Depression: Plan: No acute depressive episode (7) HTN (hypertension): Plan: Blood pressure remains mildly elevated (8) CKD (chronic kidney disease) stage 3, GFR 30-59 ml/min: Plan: Creatinine remains stable Plan DVT prophylaxis Subcu heparin CODE STATUS Full History of Present Illness Chief Complaint: Intermittent confusion for the last few days Primary Care Provider: Hi Mcdaniels MD She is a 78-year-old female with significant past medical history of type 2 diabetes, history of multiple meningioma, VIRGIL, hypothyroidism, hypertension, depression with anxiety, and mild cognitive impairment apparently has been found to be confused intermittently lately. She has been given prepared pillbox to take but still she has been missing it or taking it more unless and she feels that the medications are new to her. She has been going to wrong places and forgetting things. She has been living with her daughter but her daughter is now out of town and she has been alone. Her son is the POA and who is out of town as well. Her PCP is concerned that she has been not able to take care of herself being alone at home and was sent into the emergency room for continuation of care. She has history of meningioma in the recent MRI with contrast did not show any change compared with prior and MRIs. In the ER she did not have any acute symptoms but noted to be confused occasionally. Denies any symptoms of fever and or chills, numbness or tingling involving of the extremities, no weakness in particular in any of the extremities, no abdominal pain nausea or vomiting and denies any problem with urine or bowel habit She was admitted for continuation of care and neurology evaluation and also PT OT and social service as she might need placement. Allergies Allergy/AdvReac Type Severity Reaction Status Date / Time atorvastatin [From Lipitor] AdvReac Mild Bad dreams Verified 07/31/23 22:35 nitrofurantoin AdvReac Mild GI Upset Verified 07/31/23 22:35 adhesive AdvReac Unknown Skin Verified 07/31/23 22:35 irritations Home Medications Medication Instructions Recorded Confirmed Type hydrochlorothiazide 25 mg tablet 25 mg PO QAM 10/27/18 07/31/23 History insulin glargine 100 unit/mL 35 unit subcut HS 10/27/18 08/04/23 History subcutaneous solution (Lantus U-100 Insulin) levothyroxine 100 mcg tablet 100 mcg PO DAILYBB 03/04/21 07/31/23 History Ravinder Fierro #1 ea 03/04/22 03/04/23 Rx acetaminophen 500 mg capsule 1,000 mg PO TID PRN Headache 02/21/23 07/31/23 History bupropion HCl 150 mg 24 hr tablet, 150 mg PO QAM 02/21/23 07/31/23 History extended release gabapentin 100 mg capsule 200 mg PO BID 02/21/23 07/31/23 History albuterol sulfate 90 mcg/actuation 2 puff inhalation Q4H PRN 07/31/23 07/31/23 History aerosol inhaler (Proventil HFA) Shortness Of Breath Or Wheezing cholecalciferol (vitamin D3) 25 25 mcg PO QAM 07/31/23 07/31/23 History mcg (1,000 unit) tablet citalopram 40 mg tablet 40 mg PO QAM 07/31/23 07/31/23 History cyanocobalamin (vitamin B-12) 1,000 mcg PO QAM 07/31/23 07/31/23 History 1,000 mcg tablet diclofenac sodium 1 % topical gel 2 g topical BID 07/31/23 07/31/23 History multivitamin with minerals 1 tab PO Q2D 07/31/23 07/31/23 History (Multiple Vitamin-Minerals tablet) aspirin 81 mg tablet,delayed 81 mg PO QAM #30 tabs 08/04/23 Rx release metoprolol succinate 25 mg 12.5 mg (1/2 x 25 mg) PO QAM #30 08/04/23 Rx tablet,extended release 24 hr tabs rosuvastatin 10 mg tablet 10 mg PO QAM #30 tabs 08/04/23 Rx Past Med/Surg History Problem List (Updated 09/04/23 @ 00:09 by Marisel Huang) Chest pain Dyslipidemia, goal LDL below 70 Abnormal echocardiogram DKA (diabetic ketoacidosis) Elevated troponin (Acute) Shortness of breath (Acute) Acute hyperglycemia (Acute) Hypokalemia (Acute) Morbid obesity Acute UTI (Acute) Altered mental status (Acute) UTI (urinary tract infection) Insulin dependent type 2 diabetes mellitus Meningioma Altered mental status Left rotator cuff tear Right knee DJD Status post left knee replacement Diabetes (Chronic) Dyslipidemia (Chronic) HTN (hypertension) (Chronic) Hypothyroidism (Chronic) Depression (Chronic) Carpal tunnel syndrome of left wrist S/P carpal tunnel release Femur fracture, left (Acute) Strain of left quadriceps Ambulatory dysfunction Degenerative arthritis of knee, bilateral Right rotator cuff tear CKD (chronic kidney disease) stage 3, GFR 30-59 ml/min (Chronic) Sleep apnea CPAP (compliant) Medical History Acute metabolic encephalopathy Insulin dependent type 2 diabetes mellitus Meningioma Left rotator cuff tear Right knee DJD Encounter for pre-operative examination Morbid obesity Brain lesion Likely 2 meningiomas per 10/01/21 brain MRI > referred to neurosurgery by PCP (appt scheduled 10/17; [facility]) Hypokalemia Abnormal urinalysis DVT prophylaxis Osteoarthritis Hypothyroidism Diabetes mellitus, type 2 IDDM Depression Hypertension Hyperlipidemia Sleep apnea CPAP (compliant) Asthma allergy induced Surgical History Status post left knee replacement Status post total left knee replacement History of carpal tunnel release Right (07/2019) History of lumbar discectomy History of anesthesia reaction Slow to wake History of dilatation and curettage History of bilateral tubal ligation History of colonoscopy History of tooth extraction History of wisdom tooth extraction History of tonsillectomy and adenoidectomy History of bilateral cataract extraction Family History Father Family history of reaction to anesthesia little slow to wake up Family history of diabetes mellitus Family hx colonic polyps Social History Smoking Status: Never smoker Second Hand Exposure: No; Do You Dip or Chew Tobacco: No; Hx Alcohol Use: No Hx Substance Use: No Preferred Language: Ivorian Communication Ability: Effective Supervisor Contingents Required: No Beliefs That Will Affect Care: None marital status: / Current Living Situation: Family Feels Safe at Home: Yes Assistive Devices: Cane and Walker Review of Systems Review of Systems: All systems reviewed and are unremarkable except as noted below Physical Exam Physical Exam: Lying in bed without any acute distress Constitutional: well developed, well nourished and + obese; not ill appearing Eyes: PERRL, conjunctivae normal, anicteric sclerae ENMT: external ear and nose normal, oropharynx normal Neck: trachea midline, no thyromegaly Respiratory: no respiratory distress Auscultation: lungs clear to auscultation bilaterally Cardiovascular: Rate/Rhythm: regular rate and regular rhythm; not tachycardic Heart Sounds: normal S1 and normal S2; no murmur Extremities: + edema (Chronic lymphedema involving both the lower extremities) Gastrointestinal (Abdomen): Inspection/Auscultation: normal bowel sounds; abd omen not distended Percussion/Palpation: abdomen soft; abdomen nontender Musculoskeletal: No acute arthritis involving any of the joint Neurologic: normal touch/pain/proprioception, moves all extremities and + confused (Pleasantly confused); no focal motor deficits Lymphatic: no cervical or axillary lymphadenopathy Results & Data Results & Data Vital Signs (Past 12 Hours) Vital Signs Temp Pulse Resp BP Pulse Ox O2 Del Method 11/24/23 14:48 62 14 145/66 H 96 11/24/23 13:05 60 11/24/23 12:33 36.7 C 66 18 173/88 H 96 Room Air Laboratory Results Short CBC 11/24/23 Range/Units 13:01 WBC 8.23 (4.8-10.8) K/ul Hgb 12.3 (12.0-16.0) g/dl Hct 38.3 (37.0-47.0) % Plt Count 252 (130-400) K/uL BMP 11/24/23 13:01 Sodium 139 Potassium 3.9 Chloride 101 Carbon Dioxide 30 BUN 36 H Creatinine 1.33 H Glucose 172 H Calcium 9.3 Liver Function 11/24/23 Range/Units 13:01 Total Bilirubin 0.9 (0.2-1.0) mg/dl AST 11 L (13-39) U/L ALT 9 (7-52) U/L Alkaline Phosphatase 37 (34-104) U/L Albumin 4.1 (3.4-5.0) gm/dl Urine 11/24/23 Range/Units 13:01 Urine Color Yellow Urine Appearance Clear (Clear) Urine pH 6.0 (4.5-7.5) Ur Specific [place] 1.019 (1.000-1.030) Urine Protein Negative (Negative) Urine Glucose (UA) Negative (Negative) Medications Administered Current Inpatient Medications Heparin Sodium (Porcine) (Heparin Sod 5,000 Unit/0.5 Ml Vial) 5,000 units SQ Q12 MADYSON Stop: 12/24/23 20:59 Sodium Chloride (Nss) 1,000 mls @ 80 mls/hr IV .[id number] MADYSON Stop: 11/26/23 05:44 Code Status & VTE Plan VTE Prophylaxis Plan VTE Prophylaxis will be ordered: Yes
[2023-11-24] MEDS: SODIUM CHLORIDE 0.9% 1,000 ML IV SCH (16:22)
[2023-11-24] MEDS ORDERED: ALBUTEROL HFA 8 GM INHALER INH PRN (17:51)
[2023-11-24] MEDS: LANTUS PER UNIT CHARGE SQ SCH (21:34)
[2023-11-24] MEDS: INSULIN ASPART PER UNIT CHARGE SC SCH (21:34)
[2023-11-24] MEDS: HEPARIN SOD 5,000 UNIT/0.5 ML VIAL SQ SCH (21:35)
[2023-11-24] MEDS: GABAPENTIN 100 MG CAP PO SCH (21:37)
[2023-11-24] MEDS: CEROVITE ADV FORMULA TAB PO SCH (21:38)
--- OUTSIDE RECORDS SUMMARY | 2023-11-24 22:13 | External Medical Summary | Summary of Care ---
Author Name Unknown Organization [facility] Address [address] [place] [address] Phone [phone] Care Team Providers Care Geological Engineer Name Role Phone Hi Mcdaniels MD Primary Care Provider [phone] Reason for Visit * Reason Onset Date Comments Appointment 11/24/2023 Encounter Details Date Type Department Care Team (Late st Contact Info) Description 11/24/2023 Telephone [facility], [place] [address] [place] [address] Specified, Jimmie No Resource [address] [place] [address] Appointment Allergies Active Allergy Reactions Criticality Noted Date Comments Adhesive Tape 03/04/2021 Other reaction(s): SKIN IRRITATIONS Atorvastatin 07/03/2017 Bad dreams Nitrofurantoin Low 08/13/2021 Other reaction(s): Gastrointestinal Upset, GI Upset Nitrofurantoin Monohydrate Macrocrystals 06/10/1997 GI sens. documented as of this encounter (statuses as of 11/24/2023) Medications Medication Sig Dispensed Refills Start Date End Date Status Multiple Vitamins-Minerals (SENIOR MULTIVITAMIN PLUS) Tab Take 1 Tab by mouth every other day. Active Glucose Blood In Vitro Strip Use up to 4 times daily to test blood sugar Dx: E11.9 100 Strip 11 03/18/2022 Active Insulin Syringe 30G X 1/2" 0.5 MLIndications:DM type 2, not at goal (HCC) Use as directed to administer insulin up to four times daily. Dx code E11.9 100 Each 3 12/05/2022 Active Scan•JourTouch Ultra In Vitro Strip (Glucose Blood) USE UP TO 4 TIMES A DAY TO TEST BLOOD SUGAR DX: E11.9 100 Strip 5 06/07/2023 Active Albuterol Sulfate HFA 108 (90 Base) MCG/ACT Inhalation Aerosol SolutionIndications :Viral URI with cough,Bronchitis, complicated INHALE 2 PUFFS BY MOUTH EVERY 4 HOURS NEEDED FOR CONGESTION OR WHEEZING. 18 g 1 09/02/2023 Active Scan•JourTouch Verio Flex System w/Device KitIndications:Type 2 diabetes mellitus with hemoglobin A1c goal of less than 8.0% ([facility]) USE UP TO 3 TIMES A DAY E11.9 1 Kit 09/02/2023 Active Insulin Glargine 100 UNIT/ML Subcutaneous Solution (Lantus) Inject 25 Units under the skin at bedtime. Active Aspirin 81 MG Oral Tablet Delayed Release (SB Low Dose ASA EC)Indications:Dysl ipidemia Take 1 Tablet by mouth in the morning. Please provide in pill pack format. 90 Tablet 11/19/2023 Active buPROPion HCl ER (XL) 150 MG Oral Tablet Extended Release 24 Hour (Wellbutrin XL) Take 1 Tablet by mouth in the morning. Please provide in pill pack format. 90 Tablet 11/19/2023 Active Citalopram Hydrobromide 40 MG Oral Tablet (CeleXA)Indications :Recurrent major depressive disorder, in full remission (HCC) Take 1 Tablet by mouth in the morning. TAKE 1 TABLET BY MOUTH EVERY DAY IN THE MORNING Please provide in pill pack format. 90 Tablet 3 11/19/2023 Active Gabapentin 100 MG Oral Capsule (Neurontin)Indicati ons:New onset of headaches after age 50 TAKE 2 CAPSULES TWICE DAILY Please provide in pill pack format 120 Capsule 5 11/19/2023 Active hydroCHLOROthiazide 25 MG Oral Tablet (Hydrodiuril)Indica tions:Essential (primary) hypertension Take 1 Tablet by mouth in the morning. Please provide in pill pack format. 90 Tablet 11/19/2023 Active Levothyroxine Sodium 100 MCG Oral Tablet (Levoxyl)Indication s:Hypothyroidism due to acquired atrophy of thyroid Take 1 Tablet by mouth daily first thing in the morning. (at least 30 min prior to breakfast or other meds) Please provide in pill pack format 90 Tablet 3 11/19/2023 Active metFORMIN HCl ER 500 MG Oral Tablet Extended Release 24 Hour (Glucophage XR)Indications:Type 2 diabetes mellitus with hemoglobin A1c goal of less than 8.0% (HCC) Take 1 Tablet by mouth in the morning and 1 Tablet before bedtime. Please provide in pill pack format. 180 Tablet 3 11/19/2023 Active Metoprolol Succinate ER 25 MG Oral Tablet Extended Release 24 Hour (toPROL XL) Take 0.5 Tablets by mouth in the morning. Please provide in pill pack format. 60 Tablet 3 11/19/2023 Active Rosuvastatin Calcium 10 MG Oral Tablet (Crestor) Take 1 Tablet by mouth in the morning. Please provide in pill pack format. 90 Tablet 3 11/19/2023 Active Vitamin D3 25 MCG Oral Tablet Take 1 Tablet by mouth in the morning. Please provide in pill pack format. 90 Tablet 3 11/19/2023 Active documented as of this encounter (statuses as of 11/24/2023) Active Problems Problem Noted Date Diagnosed Date [...] as of this encounter (statuses as of 11/24/2023) Resolved Problems Problem Noted Date Diagnosed Date [...] Other specified glaucoma 12/26/199801/2015 Proteinuria 10/20/1998 08/22/2020 Obesity, Class II, BMI 35-39 .9, isolated (see actual BMI) 08/29/1998 08/12/2023 Overview: Per Obesity Taxonomy ADJ DISORDER W/DEPRES MOOD 09/09/1997 0 08/21/2020 Other allergic rhinitis 09/09/199706/2016 Overview: ICD-10 update of inactive term HTN, goal below 140/90 09/09/199706/14 Overview: Per HTN Taxonomy. Type 2 diabetes mellitus wit h hemoglobin A1c goal of less than 7.0% 09/09/1997 08/14/2012 Overview: ICD-10 update of inactive term documented as of this encounter (statuses as of 11/24/2023) Immunizations Name Administration Dates Next Due COVID-19 mRNA, LNP-s, No Pre serve, 2-Dose Series ([employer]) 02/16/2021,08/05/2020,07/15/2020 Covid-19, Mrna, Lnp-s, Pf, B ivalent, 30 Mcg, IM, 12 yrs and above ([facility]) 03/12/2022 H1N1 2009 Influenza, IM 07/04/2009 Pneumococcal [...] t, High Dose, No Preserve, IM 01/21/2018 TDAP, Age 7 and older, IM (Adacel) 04/19/2011 Varicella Zoster Vaccine (Adult) 01/16/2011 Zoster [...] the money to buy more. Never true 11/17/19 24 Within the past 12 months, t he food you bought just didn't last and you didn't have money to get more. Never true 11/17/2023 Childcare Answer Date Recorded Do you feel overwhelmed with taking care of a child, family member or friend? No 11/17/2023 Does your family need help f inding childcare? (Household - for ages 0-17 years) Not on file 11/17/2023 Clothing Answer Date Recorded Have you been unable to get clothing when it was really needed? No 11/17/2023 Is your family able to get c lothes or diapers when needed? (Household - for ages 0-17 years) Not on file 11/17/2023 Personal Safety Answer Date Recorded Do you feel unsafe or have concerns for your saf ety? No 11/17/2023 Do you have concerns for you r family's safety? (Household - for ages 0-17 years) Not on file 11/17/2023 Utilities Answer Date Recorded Do you have trouble paying y our heating, water, or electric bill? No 11/17/2023 Is your family able to pay t he heat, water, or electric bill? (Household - for ages 0-17 years) Not on file 11/17/2023 Does your family have access to good internet? (Household - for ages 0-17 years) Not on file 11/17/2023 Employment Status Answer Date Recorded Are you unemployed or without regular income? No 11/17/2023 Does the household have a re gular source of income? (Household - for ages 0-17 years) Not on file 11/17/2023 Social Connections Answer Date Recorded How often do you feel lonely or isolated from th ose around you? Rarely 11/17/2023 Financial Resource Strain Answer Date R ecorded Do you have any trouble payi ng for your medications, or do you think you might in the future? No 11/17/2023 Does your family have troubl e paying for medicine? (Household - for ages 0-17 years) Not on file 11/17/2023 Transportation Needs Answer Date Record ed Do you have trouble getting a ride to medical visits or work? (Adult - for ages 18 years and over) Not on file 11/17/2023 Does your family have a hard time getting a ride to doctors visits? (Household - for ages 0-17 years) Not on file 11/17/2023 Has lack of transportation k ept you from medical appointments, meetings, work, or from getting things needed for daily living? Check all that apply. No 11/17/2023 Do you (or your family) have trouble finding or paying for a ride (transportation)? (Household - for ages 0-17 years) Not on file 11/17/2023 Housing Stability Answer Date Recorded Do you currently live in a s helter or have no steady place to sleep at night? No 11/17/2023 Do you think you are at risk of becoming homeless? (Adult - for ages 18 years and over) Not on file 11/17/2023 Does your family worry about paying for your home or becoming homeless? (Household - for ages 0-17 years) Not on file 0 11/17/2023 Are you homeless or worried that you might be in the future? No 11/17/2023 Are you (or your family) kristi eless or worried that you might be in the future? (Household - for ages 0-17 years) Not on file Food Insecurity Answer Date Recorded Do you need food for this week? No 11/17/2023 Are you able to get enough f ood for your family? (Household - for ages 0-17 years) Not on file 11/17/2023 Does your family need food t his week? (Household - for ages 0-17 years) Not on file 11/17/2023 Do you always have enough fo od for your family? (Household - for ages 0-17 years) Not on file 11/17/2023 Sex and Gender Information Value Date Recorded Sex Assigned at Female 01/13/2020 10:57 AM EDT Gender Identity Female 01/13/2020 10:57 AM EDT Sexual Orientation Straight 01/13/2020 10 :57 AM EDT Job Start Date Occupation Industry Not on file Not on file Not on file documented as of this encounter Miscellaneous Notes * Telephone Encounter - Maia Galvan OSA - 11/24/2023 9:34 AM EDT Spoke to patient and patient is scheduled for a telephonic appt on 11/26 at 11am with Mart documented in this encounter Plan of Treatment Upcoming Encounters Date Type Department Care Team (Late st Contact Info) Description 11/24/2023 10:00 AM EDT [facility] [address] [facility] [place] [address] [facility] [address] [place] [address] 11/27/2023 11:00 AM EDT Telemedicine Neurosurgery, [place] [address] [place] [address] Ray Chiu PA-C [address] [place] [address] 01/15/2024 10:20 AM EDT Office Visit Nephrology, [place] [address] [place] [address] Colleen Acosta MD [address] [place] [address] 01/30/2024 8:30 AM EDT [facility] [address] [place] [address] [facility], Nurse Annual Wellness [facility] [address] [place] [address] 05/25/2024 9:00 AM EST Office Visit Family [facility] [address] [place] [address] Hi Mcdaniels MD [address] [place] [address] 10/21/2024 10:45 AM EDT Office Visit Dermatology [facility] [address] [facility] [place] [address] Orestes Slaughter MD [address] [facility] [place] [address] Scheduled Procedures Name Priority Associated Diagnoses Date/Ti me COLONOSCOPY FLEXIBLE PROXIMAL DIAGNOSTIC Recall History of colon polyps Health Maintenance Due Date Last Done Comments DTaP,Tdap,and Td Vaccines (2 - Td or Tdap) 04/19/2021 04/19/2011, 04/04/2003 Colonoscopy 11/03/2021 11/03/2018, 04/19/2008 COVID-19 Vaccine ( - season) 2023 04/19/2023, 03/12/2022, 02/16/2021, Additional history exists Influenza Vaccine (FLU shot) (#1) 2024 04/19/2023, 01/24/2023, 01/25/2022, Additional history exists Depression Monitoring 01/28/2024 01/27/2023 HbA1c 02/18/2024 08/19/2023, 10/06/2022, 10/09/2022, Additional history exists Diabetic Eye Exam 02/22/2024 02/21/2023, , 02/05/2021, Additional history exists CKD PHOS USE SMARTSET 94204 03/04/202402/16, 07/15/2022, 12/18/2020, Additional history exists GFR 04/09/2024 10/08/2023, 04/0 06/2023, 01/27/2023, Additional history exists Albumin/Creatinine Ratio 08/18/2024 024, 07/15/2022, 05/08/2022, Additional history exists CKD HGB USE SMARTSET 02513 08/18/202408/18, 07/15/2022, 11/20/2021, Additional history exists TSH 08/18/2024 08/19/2023, 09/17, 07/31/2022, Additional history exists Diabetic Foot Exam 09/30/2024 10/01/2023, 0 07/24/2022, 11/06/2020, Additional history exists DXA Scan 11/28/2028 11/29/2019, 01/18, 02/08/2013, Additional history exists Pneumococcal Vaccine: 65+ Years Completed 11/16/2015, 08/11/2013, 12/22/2005 Zoster Vaccines Completed 04/30/2019, 0712/2018, 01/16/2011 HPV (Gardasil) Vaccine Aged Out No lo nger eligible based on patient's age to complete this topic Hepatitis B Vaccine Aged Out No longe r eligible based on patient's age to complete this topic MENINGOCOCCAL (MENACTRA/MENVEO) Aged Out No longer eligible based on patient's age to complete this topic documented as of this encounter Medical Devices Not on filedocumented as of this encounter Care Teams Geological Engineer Relationship Specialty Start Date End Date Hi Mcdaniels MD [address] [address] PCP - General Family Medicine 10/26/21 documented as of this encounter
--- OUTSIDE RECORDS SUMMARY | 2023-11-24 22:13 | External Medical Summary | Summary of Care ---
Author Name Unknown Organization [facility] Address [address] [place] [address] Phone [phone] Care Team Providers Care Synchro Assembler Name Role Phone Hi Mcdaniels MD Primary Care Provider [phone] Reason for Visit * Reason Onset Date Comments Appointment 11/19/2023 Encounter Details Date Type Department Care Team (Late st Contact Info) Description 11/19/2023 Telephone Family [facility] [address] [place] [address] Hi Mcdaniels MD [address] [facility] [place] [id number] Appointment Allergies Active Allergy Reactions Criticality Noted Date Comments Adhesive Tape 03/04/2021 Other reaction(s): SKIN IRRITATIONS Atorvastatin 07/03/2017 Bad dreams Nitrofurantoin Low 08/13/2021 Other reaction(s): Gastrointestinal Upset, GI Upset Nitrofurantoin Monohydrate Macrocrystals 06/10/1997 GI sens. documented as of this encounter (statuses as of 11/21/2023) Medications Medication Sig Dispensed Refills Start Date End Date Status Multiple Vitamins-Minerals (SENIOR MULTIVITAMIN PLUS) Tab Take 1 Tab by mouth every other day. Active Glucose Blood In Vitro Strip Use up to 4 times daily to test blood sugar Dx: E11.9 100 Strip 11 03/18/2022 Active Insulin Syringe 30G X 1/2" 0.5 MLIndications:DM type 2, not at goal ([facility]) Use as directed to administer insulin up to four times daily. Dx code E11.9 100 Each 3 12/05/2022 Active [employer] Ultra In Vitro Strip (Glucose Blood) USE UP TO 4 TIMES A DAY TO TEST BLOOD SUGAR DX: E11.9 100 Strip 5 06/07/2023 Active Albuterol Sulfate HFA 108 (90 Base) MCG/ACT Inhalation Aerosol SolutionIndications :Viral URI with cough,Bronchitis, complicated INHALE 2 PUFFS BY MOUTH EVERY 4 HOURS NEEDED FOR CONGESTION OR WHEEZING. 18 g 1 09/02/2023 Active [employer] Verio Flex System w/Device KitIndications:Type 2 diabetes mellitus with hemoglobin A1c goal of less than 8.0% ([facility]) USE UP TO 3 TIMES A DAY E11.9 1 Kit 09/02/2023 Active Insulin Glargine 100 UNIT/ML Subcutaneous Solution (Lantus) Inject 25 Units under the skin at bedtime. Active Aspirin 81 MG Oral Tablet Delayed Release (SB Low Dose ASA EC)Indications:Dysl ipidemia Take 1 Tablet by mouth in the morning. Please provide in pill pack format. 90 Tablet 3 11/19/2023 Active buPROPion HCl ER (XL) 150 [...] pill pack format. 90 Tablet 11/19/2023 Active Gabapentin 100 MG Oral Capsule (Neurontin)Indicati ons:New onset of headaches after age 50 TAKE 2 CAPSULES TWICE DAILY Please provide in pill pack format 120 Capsule 5 11/19/2023 Active hydroCHLOROthiazide 25 MG Oral Tablet (Hydrodiuril)Indica tions:Essential (primary) hypertension Take 1 Tablet by mouth in the morning. Please provide in pill pack format. 90 Tablet 3 11/19/2023 Active Levothyroxine Sodium 100 MCG Oral [...] as of this encounter (statuses as of 11/21/2023) Active Problems Problem Noted Date Diagnosed Date [...] as of this encounter (statuses as of 11/21/2023) Resolved Problems Problem Noted Date Diagnosed Date [...] as of this encounter (statuses as of 11/21/2023) Immunizations Name Administration Dates Next Due COVID-19 mRNA, LNP-s, No Pre serve, 2-Dose Series ([facility]) 02/16/2021,08/05/2020,07/15/2020 Covid-19, Mrna, Lnp-s, Pf, B ivalent, 30 Mcg, IM, 12 yrs and above ([facility]) 03/12/2022 H1N1 2009 Influenza, IM 07/04/2009 Pneumococcal [...] encounter Miscellaneous Notes * Telephone Encounter - Rosey Flanagan OSA - 11/21/2023 2:25 PM EDT Patient already has return in May with dr mcdaniels * Telephone Encounter - Piedad Dangelo LPN - 11/19/2023 2:41 PM EDT Please call patient to schedule in 3 months for f/u with pcp. Status check and labs if needed. documented in this encounter Plan of Treatment Upcoming Encounters Date Type Department Care Team (Late st Contact Info) Description 11/24/2023 10:00 AM EDT Office Visit Pharmacy, [facility] [place] [address] [address] [facility] [place] [address] [address] 01/15/2024 10:20 AM EDT Office Visit Nephrology, [place] [facility] [address] [place] [address] Colleen Acosta MD [address] [place] [address] 01/30/2024 8:30 AM EDT Nurse Only [facility] [address] [place], Nurse Annual Wellness [facility] [address] [facility] [place] [address] 05/25/2024 9:00 AM EST Office Visit Family Practice [facility] [address] [facility] [place] [address] Hi Mcdaniels MD [address] [place] [address] 10/21/2024 10:45 AM EDT Office Visit Dermatology [facility] [address] [facility] [place] [address] Orestes Slaughter MD [address] [place] [address] Scheduled Procedures Name Priority Associated Diagnoses Date/Ti me COLONOSCOPY FLEXIBLE PROXIMAL DIAGNOSTIC Recall History of colon polyps Health Maintenance Due Date Last Done Comments DTaP,Tdap,and Td Vaccines (2 - Td or Tdap) 04/19/2021 04/19/2011, 04/04/2003 Colonoscopy 11/03/2021 11/03/2018, 04/19/2008 COVID-19 Vaccine ( season) 2023 04/19/2023, 03/12/2022, 02/16/2021, Additional history exists Influenza Vaccine (FLU shot) (#1) 2024 04/19/2023, 01/24/2023, 01/25/2022, Additional history exists Depression Monitoring 01/28/2024 01/27/2023 HbA1c 02/18/2024 08/19/2023, 06/2022, 10/09/2022, Additional history exists Diabetic Eye Exam 02/22/2024 02/21/2023, , 02/05/2021, Additional history exists CKD PHOS USE SMARTSET 89767 03/04/202402/16, 07/15/2022, 12/18/2020, Additional history exists GFR 04/09/2024 10/08/2023, 040 06/2023, 01/27/2023, Additional history exists Albumin/Creatinine Ratio 08/18/2024 024, 07/15/2022, 05/08/2022, Additional history exists CKD HGB USE SMARTSET 64042 08/18/202408/18, 07/15/2022, 11/20/2021, Additional history exists TSH 08/18/2024 08/19/2023, 09/17, 07/31/2022, Additional history exists Diabetic Foot Exam 09/30/2024 10/01/2023, 0 07/24/2022, 11/06/2020, Additional history exists DXA Scan 11/28/2028 11/29/2019, 01/18, 02/08/2013, Additional history exists Pneumococcal Vaccine: 65+ Years Completed 11/16/2015, 08/11/2013, 12/22/2005 Zoster Vaccines Completed 04/30/2019, 12/2018, 01/16/2011 HPV (Gardasil) Vaccine Aged Out No [...] filedocumented as of this encounter Care Teams Synchro Assembler Relationship Specialty Start Date End Date Hi Mcdaniels MD [address] [place] [address] PCP - General Family Medicine 10/26/21 documented as of this encounter
--- OUTSIDE RECORDS SUMMARY | 2023-11-24 22:13 | External Medical Summary | Summary of Care ---
Author Name Unknown Organization [facility] Address [address] [facility] [place] [address] Phone [phone] Care Team Providers Care Wearing Apparel Presser Name Role Phone Hi Mcdaniels MD Primary Care Provider [phone] Reason for Visit * Reason Onset Date Comments Medication Question 11/18/2023 Advice 11/19/2023 Encounter Details Date Type Department Care Team (Late st Contact Info) Description 11/18/2023 Telephone Centralized Clinical Pharmacy Services, Ania Asencio [address] [place] [address] [place] [address] [facility] [place] 132 [facility] [place] [address] Medication Question; Advice Allergies Active Allergy Reactions Criticality Noted Date Comments Adhesive Tape 03/04/2021 Other reaction(s): SKIN IRRITATIONS Atorvastatin 07/03/2017 Bad dreams Nitrofurantoin Low 08/13/2021 Other reaction(s): Gastrointestinal Upset, GI Upset Nitrofurantoin Monohydrate Macrocrystals 06/10/1997 GI sens. documented as of this encounter (statuses as of 11/19/2023) Medications Medication Sig Dispensed Refills Start Date End Date Status Multiple Vitamins-Minerals (SENIOR MULTIVITAMIN PLUS) Tab Take 1 Tab by mouth every other day. Active Glucose Blood In Vitro Strip Use up to 4 times daily to test blood sugar Dx: E11.9 100 Strip 11 2 Active Insulin Syringe 30G X 1/2" 0.5 MLIndications:DM type 2, not at goal ([facility]) Use as directed to administer insulin up to four times daily. Dx code E11.9 100 Each 3 3 Active [employer] Ultra In Vitro Strip (Glucose Blood) USE UP TO 4 TIMES A DAY TO TEST BLOOD SUGAR DX: E11.9 100 Strip 5 4 Active Albuterol Sulfate HFA 108 (90 Base) MCG/ACT Inhalation Aerosol SolutionIndicatio ns:Viral URI with cough,Bronchitis, complicated INHALE 2 PUFFS BY MOUTH EVERY 4 HOURS NEEDED FOR CONGESTION OR WHEEZING. 18 g 1 4 Active OneTouch Verio Flex System w/Device KitIndications:Ty pe 2 diabetes mellitus with hemoglobin A1c goal of less than 8.0% ([facility]) USE UP TO 3 TIMES A DAY E11.9 1 Kit 4 Active CPAP every night at bedtime. 11/19/19 24 Discontinued Diclofenac Sodium 1 % External Gel (Voltaren)Indicat ions:Quadriceps strain, left, subsequent encounter APPLY TOPICALLY TO AFFECTED AREA 2 TIMES A DAY. APPLY TO KNEES 200 g 3 2 11/19/19 24 Discontinued Fluticasone Propionate 50 MCG/ACT Nasal SuspensionIndicat ions:Viral URI with cough,Post-nasal drip Administer 2 Sprays into each nostril in the morning. 1 Each 1 2 11/19/19 24 Discontinued Citalopram Hydrobromide 40 MG Oral Tablet (CeleXA)Indicatio ns:Recurrent major depressive disorder, in full remission (HCC) TAKE 1 TABLET BY MOUTH EVERY DAY IN THE MORNING 90 Tablet 3 3 11/19/19 24 Discontinued(Ref ill) Gabapentin 100 MG Oral Capsule (Neurontin)Indica tions:New onset of headaches after age 50 TAKE 2 CAPSULES TWICE DAILY 120 Capsule 5 3 11/19/19 24 Discontinued(Ref ill) Levothyroxine Sodium 100 MCG Oral Tablet (Levoxyl)Indicati ons:Hypothyroidis m due to acquired atrophy of thyroid TAKE 1 TABLET BY MOUTH EVERY DAY AT LEAST 30 MIN BEFORE BREAKFAST OR OTHER MEDICATION 90 Tablet 3 3 11/19/19 24 Discontinued(Ref ill) buPROPion HCl ER (XL) 150 MG Oral Tablet Extended Release 24 Hour (Wellbutrin XL) TAKE 1 TABLET (150 MG) BY MOUTH IN THE MORNING. 90 Tablet 3 3 11/19/19 24 Discontinued(Ref ill) hydroCHLOROthiazi de 25 MG Oral Tablet (Hydrodiuril)Lavinia cations:Essential (primary) hypertension TAKE 1 TABLET BY MOUTH EVERY DAY IN THE MORNING 90 Tablet 3 3 11/19/19 24 Discontinued(Ref ill) BD Insulin Syringe U/F 30G X 1/2" 0.3 ML (Insulin Syringe-Needle U-100)Indications :DM type 2, not at goal (HCC) USE DIRECTED TO ADMINISTER INSULIN UP TO FOUR TIMES DAILY. DX CODE E11.9 400 Each 3 4 11/19/19 24 Discontinued Vitamin D3 25 MCG Oral Tablet (Cholecalciferol) Take 1 Tablet by mouth in the morning. 90 Tablet 3 4 11/19/19 24 Discontinued(Ref ill) Rosuvastatin Calcium 10 MG Oral Tablet (Crestor) Take 1 Tablet by mouth in the morning. 90 Tablet 3 4 11/19/19 24 Discontinued(Ref ill) Metoprolol Succinate ER 25 MG Oral Tablet Extended Release 24 Hour (toPROL XL) Take 0.5 Tablets by mouth in the morning. 60 Tablet 3 4 11/19/19 24 Discontinued(Ref ill) Aspirin 81 MG Oral Tablet Delayed Release (SB Low Dose ASA EC)Indications:Dy slipidemia Take 1 Tablet by mouth in the morning. 90 Tablet 3 4 11/19/19 24 Discontinued(Ref ill) metFORMIN HCl ER 500 MG Oral Tablet Extended Release 24 Hour (Glucophage XR)Indications:Ty pe 2 diabetes mellitus with hemoglobin A1c goal of less than 8.0% ([facility]) Take 1 Tablet by mouth in the morning and 1 Tablet before bedtime. 180 Tablet 3 4 11/19/19 24 Discontinued(Ref ill) documented as of this encounter (statuses as of 11/19/2023) Active Problems Problem Noted Date Diagnosed Date [...] as of this encounter (statuses as of 11/19/2023) Resolved Problems Problem Noted Date Diagnosed Date [...] as of this encounter (statuses as of 11/19/2023) Immunizations Name Administration Dates Next Due COVID-19 mRNA, LNP-s, No Pre serve, 2-Dose Series (ControlScan) 02/16/2021,08/05/2020,07/15/2020 Covid-19, Mrna, Lnp-s, Pf, B ivalent, 30 Mcg, IM, 12 yrs and above ([employer]) 03/12/2022 H1N1 2009 Influenza, IM 07/04/2009 Pneumococcal [...] IM 01/21/2018 TD - Tetanus/Diptheria (ADULT) 04/04/2003 TDAP, Age 7 and older, IM (Adacel) [...] 11/17/2023 Does the household have a re lar source of income? (Household - for ages [...] encounter Miscellaneous Notes * Telephone Encounter - Alee Berger LPN - 11/19/2023 1:54 PM EDT Received transferred call from pharmacist. Spoke with patient for 25 minutes. Patient very confusedregarding her medications & talking in circles throughout the conversation. Repeatedly informedpatient her medicine was sorted into a pill brand planner when she was in the office this morning. Patient stated she was looking at the pill brand planner-"so I take the AM pills all tomorrow morning? Friday-Fri day". I explained to her that she only takes the pills that are in the TH AM slot. Patient then circled back "So do I take all the pills in here". Advised to patient she is to take the pills that are in each divided part, take Friday PM pills tonight because it is Friday. Take Thday AM pills tomorrow morning because tomorrow is . Patient stated "Okay I got it". Patient thencircled back saying "so what do I take tomorrow?"-reinforced to patient she takes Thursday AM tomorrow morning because its , she takes Thursday PM tomorrow night because its . While I spoke with patient Radha, called patients son (Enrique) to see if someone was available to check on her. Per patients son he was calling the neighbor to have the neighbor go check on patient. Informed patient that her neighbor would be over to check on her. Patient said "Oh good. I am just so confused. I don't want to take my medicine wrong and get sick". Assured patient that she was doing agood job, we are working on pill packs to make things easier on her. Patient thanked staff for helping her and "being patient". PCP aware of phone call. * Telephone Encounter - Demian Marquez, college professor - 11/19/2023 1:15 PM EDT Pt calling stating she was at Dr. Mcdaniels's office today for help with her pills but still requires assistance. Pt stating she got home from appointment, brought pills out in front of her and is completely overwhelmed and does not know what to take, even today. Caller's voice is shaky and pt is very tearful. Pt aware she will be getting medications from [place] but until she starts pill pack she needs her medication organized until they start coming. Placing call to [facility] who stated two of patient's prescriptions went through. The rest are "too soon." Reaching out to Dr. Mcdaniels's Nurse line for assistance. Alee familiar with patient and received warm transfer. Thank you, Demian Marquez Chro I Centralized Clinical Pharmacy Services ([facility]) 11/19/2023,1:19 PM * Telephone Encounter - Sonam Hernandez OSA - 11/19/2023 12:54 PM EDT Patient is calling in today as she is very confused and needs help with medication sorting, she states she had help with this but she is really struggling today and is upset. She also states she signed up with an apothecary place to get her meds in packets so she does not have to sort them they would be pre sorted. She is wondering how long it will take to start getting her meds this way. Please call patient to discuss and advise. She is all by herself and she is worried about mixing upher medications. * Telephone Encounter - Marya Mandel RP - 11/18/2023 1:51 PM EDT Patient Phone Numbers Spoke to patient via phone. She will come tomorrow to have pills sorted and made sense of. Patient notes she agreeable. Marya Mandel, Pharm D, [facility] Clinical Pharmacist 11/18/2023, 1:52 PM * Telephone Encounter - Maria Guadalupe Shore PHARM Tech - 11/18/2023 1:41 PM EDT Caller's name: Apolinar Marcela call back number(OFFICE NUMBER FOR ): [phone] Reason for call: Pt is calling to see if there is someone that can help her sort her pills,she isntcomfortable doing this, she said her daughter helped her but she is currently away, she would like a return call. Thank you, Maria Guadalupe Shore Discovery Manager Centralized Clinical Pharmacy Services 11/18/2023,1:41 PM documented in this encounter Plan of Treatment Upcoming Encounters Date Type Department Care Team (Late st Contact Info) Description 11/21/2023 10:30 AM EDT Imaging Radiology [facility] 1st [facility] 132 [facility] [place] [address] 11/24/2023 10:00 AM EDT Office Visit Pharmacy, [facility] [address] [place] [facility] [address] [address] 01/15/2024 10:20 AM EDT Office Visit Nephrology, [facility] [address] [place] [address] Colleen Acosta MD 200 [facility] [place] [address] 01/30/2024 8:30 AM EDT Nurse Only Ancillary [facility] 132 [facility] [address] [place], Nurse Annual Wellness [facility] [address] 05/25/2024 9:00 AM EST Office Visit Family Practice [facility] 132 [facility] [place] [address] Hi Mcdaniels MD 132 [facility] [place] [address] 10/21/2024 10:45 AM EDT Office Visit Dermatology [facility] [address] [place] [address] Orestes Slaughter MD [address] [place] [address] Scheduled Procedures Name Priority Associated Diagnoses Date/Ti [...] Depression Monitoring 01/28/2024 01/27/2023 HbA1c 02/18/2024 08/19/2023, 1006/2022, 10/09/2022, Additional history exists Diabetic Eye Exam 02/22/2024 02/21/2023, , 02/05/2021, Additional history exists CKD PHOS USE SMARTSET 36001 03/04/202402/16, 07/15/2022, 12/18/2020, Additional history exists GFR 04/09/2024 10/08/2023, 0406/2023, 01/27/2023, Additional history exists Albumin/Creatinine Ratio 08/18/2024 024, 07/15/2022, 05/08/2022, Additional history exists CKD HGB USE SMARTSET 99884 08/18/202408/18, 07/15/2022, 11/20/2021, Additional history exists TSH [...] filedocumented as of this encounter Care Teams Wearing Apparel Presser Relationship Specialty Start Date End Date Hi Mcdaniels MD [address] [place] [address] PCP - General Family Medicine 10/26/21 documented as of this encounter
--- OUTSIDE RECORDS SUMMARY | 2023-11-24 22:13 | External Medical Summary | Summary of Care ---
Author Name Unknown Organization [facility] Address [address] [facility] [place] [address] Phone [phone] Care Team Providers Care Regional Training Manager Name Role Phone Hi Mcdaniels MD Primary Care Provider [phone] Reason for Visit * Reason Onset Date Comments Medication Question 11/18/2023 Advice 11/19/2023 Encounter Details Date Type Department Care Team (Late st Contact Info) Description 11/18/2023 Telephone Centralized Clinical Pharmacy Services, Ania Asencio [address] [place] [address] [place] [address] [facility] [place] 132 [facility] [place] [address] Medication Question; Advice Allergies [...] 0.5 MLIndications:DM type 2, not at goal ([facility]) Use as directed to administer insulin up to four times daily. Dx code E11.9 100 Each 3 3 Active [employer] Ultra In Vitro Strip (Glucose Blood) USE [...] hemoglobin A1c goal of less than 8.0% ([facility]) USE UP TO 3 TIMES A DAY [...] hemoglobin A1c goal of less than 8.0% ([facility]) Take 1 Tablet by mouth in the [...] mRNA, LNP-s, No Pre serve, 2-Dose Series ([employer]) 02/16/2021,08/05/2020,07/15/2020 Covid-19, Mrna, Lnp-s, Pf, B ivalent, 30 Mcg, IM, 12 yrs and above ([employer]) 03/12/2022 H1N1 2009 Influenza, IM 07/04/2009 Pneumococcal [...] her medicine was sorted into a pill digital media planner when she was in the office this morning. Patient stated she was looking at the pill digital media planner-"so I take the AM pills all [...] call. * Telephone Encounter - Demian Marquez, silo filler - 11/19/2023 1:15 PM EDT Pt calling [...] aware she will be getting medications from [facility] but until she starts pill pack she needs her medication organized until they start coming. Placing call to [facility] who stated two of patient's prescriptions went through. The rest are "too soon." Reaching out to Dr. Mcdaniels's Nurse line for assistance. Alee familiar with patient and received warm transfer. Thank you, Demian Marquez Electrophysiology Nurse Practitioner I Centralized Clinical Pharmacy Services ([facility]) 11/19/2023,1:19 [...] notes she agreeable. Marya Mandel, Pharm D, [facility] Clinical Pharmacist 11/18/2023, 1:52 PM * Telephone Encounter - Maria Guadalupe Shore PHARM Tech - 11/18/2023 1:41 PM EDT Caller's name: Apolinar Marcela call back number(OFFICE NUMBER FOR ): [phone] Reason for call: Pt is calling to see if there is someone that can help her sort her pills,she isntcomfortable doing this, she said her daughter helped her but she is currently away, she would like a return call. Thank you, Maria Guadalupe Shore Business Architect Centralized Clinical Pharmacy Services 11/18/2023,1:41 PM documented in this encounter Plan of Treatment Upcoming Encounters Date Type Department Care Team (Late st Contact Info) Description 11/21/2023 10:30 AM EDT Imaging Radiology [facility] 1st [facility] 132 [facility] [place] [address] 11/24/2023 10:00 AM EDT Office Visit Pharmacy, [facility] [address] [place] [facility] [address] [address] 01/15/2024 10:20 AM EDT Office Visit Nephrology, [facility] [address] [place] [address] Colleen Acosta MD 200 [facility] [place] [address] 01/30/2024 8:30 AM EDT Nurse Only Ancillary [facility] 132 [facility] [address] [place], Nurse Annual Wellness [facility] [address] 05/25/2024 9:00 AM EST Office Visit Family Practice [facility] 132 [facility] [place] [address] Hi Mcdaniels MD 132 [facility] [place] [address] 10/21/2024 10:45 AM EDT Office Visit Dermatology [facility] [address] [place] [address] Orestes Slaughter MD [address] [place] [address] [address] Scheduled Procedures Name Priority Associated Diagnoses Date/Ti [...] Additional history exists CKD PHOS USE SMARTSET 93454 03/04/202402/16, 07/15/2022, 12/18/2020, Additional history exists GFR 04/09/2024 10/08/2023, 0406/2023, 01/27/2023, Additional history exists Albumin/Creatinine Ratio 08/18/2024 024, 07/15/2022, 05/08/2022, Additional history exists CKD HGB USE SMARTSET 58245 08/18/202408/18, 07/15/2022, 11/20/2021, Additional history exists TSH [...] filedocumented as of this encounter Care Teams Regional Training Manager Relationship Specialty Start Date End Date Hi Mcdaniels MD [address] [place] [address] PCP - General Family Medicine 10/26/21 documented as of this encounter
--- OUTSIDE RECORDS SUMMARY | 2023-11-24 22:13 | External Medical Summary | Summary of Care ---
Author Name Unknown Organization [facility] Address [address] [facility] [place] [address] Phone [phone] Care Team Providers Care Windows Architect Name Role Phone Hi Mcdaniels MD Primary Care Provider [phone] Reason for Visit * Reason Onset Date Comments Medication Question 11/18/2023 Advice 11/19/2023 Encounter Details Date Type Department Care Team (Late st Contact Info) Description 11/18/2023 Telephone Centralized Clinical Pharmacy Services, Ania Asencio [address] [place] [address] [place] [address] [facility] [place] 132 [facility] [place] [address] Medication Question; Advice Allergies Active Allergy [...] type 2, not at goal ([facility]) Use as directed to administer insulin up to four times daily. Dx code E11.9 100 Each 3 3 Active [employer] Ultra In Vitro Strip (Glucose Blood) USE [...] hemoglobin A1c goal of less than 8.0% ([facility]) USE UP TO 3 TIMES A DAY [...] hemoglobin A1c goal of less than 8.0% ([facility]) Take 1 Tablet by mouth in the [...] mRNA, LNP-s, No Pre serve, 2-Dose Series ([employer]) 02/16/2021,08/05/2020,07/15/2020 Covid-19, Mrna, Lnp-s, Pf, B ivalent, 30 Mcg, IM, 12 yrs and above ([employer]) 03/12/2022 H1N1 2009 Influenza, IM 07/04/2009 Pneumococcal [...] Telephone Encounter - Radha Cooney LPN - 11/19/2023 4:50 PM EDT Called and spoke with pts son (Enrique) to check in prior to leaving for the day. He states the pharmacy was sending medication in pill pack format this evening, states his mother is aware and neighborwill check in on pt this evening Emailed copy of resources to pts son and faxed HH referral to Jonathan * Telephone Encounter - Alee Berger LPN - 11/19/2023 1:54 PM EDT Received transferred call from pharmacist. Spoke with patient for 25 minutes. Patient very confusedregarding her medications & talking in circles throughout the conversation. Repeatedly informedpatient her medicine was sorted into a pill land use planner when she was in the office this morning. Patient stated she was looking at the pill land use planner-"so I take the AM pills all tomorrow morning? Friday-Fri". I explained to her that she only takes the pills that are in the FRIDAY AM slot. Patient then circled back "So do I take all the pills in here". Advised to patient she is to take the pills that are in each divided part, take Friday PM pills tonight because it is Friday. Take AM pills tomorrow morning because tomorrow is . Patient stated "Okay I got it". Patient thencircled back saying "so what do I take tomorrow?"-reinforced to patient she takes Thursday AM tomorrow morning because its , she takes Thurs PM tomorrow night because its . While [...] call. * Telephone Encounter - Demian Marquez, artist agent - 11/19/2023 1:15 PM EDT Pt calling [...] aware she will be getting medications from [facility] but until she starts pill pack she needs her medication organized until they start coming. Placing call to [facility] who stated two of patient's prescriptions went through. The rest are "too soon." Reaching out to Dr. Mcdaniels's Nurse line for assistance. Alee familiar with patient and received warm transfer. Thank you, Demian Marquez Coil Rewind Machine Operator I Centralized Clinical Pharmacy Services ([facility]) 11/19/2023,1:19 [...] medications. * Telephone Encounter - Marya Mandel RPh - 11/18/2023 1:51 PM EDT Patient Phone Numbers Spoke to patient via phone. She will come tomorrow to have pills sorted and made sense of. Patient notes she agreeable. Marya Mandel, Pharm [place], [facility] Clinical Pharmacist 11/18/2023, 1:52 PM * Telephone Encounter - Maria Guadalupe Shore PHARM Tech - 11/18/2023 1:41 PM EDT Caller's name: Apolinar Medrano call back number(OFFICE NUMBER FOR ): [phone] Reason for call: Pt is calling to see if there is someone that can help her sort her pills,she isntcomfortable doing this, she said her daughter helped her but she is currently away, she would like a return call. Thank you, Maria Guadalupe Shore Top Ironer Centralized Clinical Pharmacy Services 11/18/2023,1:41 PM documented in this encounter Plan of Treatment Upcoming Encounters Date Type Department Care Team (Late st Contact Info) Description 11/21/2023 10:30 AM EDT Imaging Radiology [facility] 1st Floor, [place] 132 [facility] [place] [address] 11/24/2023 10:00 AM EDT Office Visit Pharmacy, [facility] 132 [facility] [place] [address] [place] [facility] [address] [place] [address] 01/15/2024 10:20 AM EDT Office Visit Nephrology, [place] [address] [place] [address] Colleen Acosta MD [address] [place] [address] 01/30/2024 8:30 AM EDT [facility] 132 [facility] [place] [address] [place], Nurse Annual Wellness [address] [place] [address] 05/25/2024 9:00 AM EST [facility] [address] [place] [address] Hi Mcdaniels MD [address] [place] [address] 10/21/2024 10:45 AM EDT Office Visit Dermatology [facility] [place] 200 [facility] [place] [address] Orestes Slaughter MD 200 [facility] [place] [address] Scheduled Procedures Name Priority Associated Diagnoses Date/Ti [...] Additional history exists CKD PHOS USE SMARTSET 43025 03/04/202402/16, 07/15/2022, 12/18/2020, Additional history exists GFR 04/09/2024 10/08/2023, 040 06/2023, 01/27/2023, Additional history exists Albumin/Creatinine Ratio 08/18/2024 024, 07/15/2022, 05/08/2022, Additional history exists CKD HGB USE SMARTSET 19081 08/18/202408/18, 07/15/2022, 11/20/2021, Additional history exists TSH [...] filedocumented as of this encounter Care Teams Windows Architect Relationship Specialty Start Date End Date Hi Mcdaniels MD 132 [place] [address] PCP - General Family Medicine 10/26/21 documented as of this encounter
--- OUTSIDE RECORDS SUMMARY | 2023-11-24 22:13 | External Medical Summary | Summary of Care ---
Author Name Unknown Organization [facility] Address [address] [place] [address] Phone [phone] Care Team Providers Care Video Operator Name Role Phone Hi Mcdaniels MD Primary Care Provider [phone] Reason for Visit * Reason Onset Date Comments Medication Question 11/18/2023 Advice 11/19/2023 Encounter Details Date Type Department Care Team (Late st Contact Info) Description 11/18/2023 Telephone Centralized Clinical Pharm[facility] Services, Ania Asencio [address] [place] [address] [place] [address] [facility] Nilsa [address] [facility] [place] [address] Medication Question; Advice [...] 0.5 MLIndications:DM type 2, not at goal ([facility]) Use as directed to administer insulin up to four times daily. Dx code E11.9 100 Each 3 3 Active Abcodia Ultra In Vitro Strip (Glucose Blood) USE [...] hemoglobin A1c goal of less than 8.0% ([facility]) USE UP TO 3 TIMES A [...] hemoglobin A1c goal of less than 8.0% ([facility]) Take 1 Tablet by mouth in the [...] mRNA, LNP-s, No Pre serve, 2-Dose Series (TrendMD) 02/16/2021,08/05/2020,07/15/2020 Covid-19, Mrna, Lnp-s, Pf, B ivalent, 30 Mcg, IM, 12 yrs and above (TrendMD) 03/12/2022 H1N1 2009 Influenza, IM 07/04/2009 Pneumococcal [...] her medicine was sorted into a pill production planner scheduler when she was in the office this morning. Patient stated she was looking at the pill production planner scheduler-"so I take the AM pills all tomorrow [...] call. * Telephone Encounter - Demian Marquez, transportation maintenance supervisor - 11/19/2023 1:15 PM EDT Pt calling [...] aware she will be getting medications from [place] but until she starts pill pack she needs her medication organized until they start coming. Placing call to [facility] who stated two of patient's prescriptions went through. The rest are "too soon." Reaching out to Dr. Mcdaniels's Nurse line for assistance. Alee familiar with patient and received warm transfer. Thank you, Demian Marquez Voip Technician I [facility] ([facility]) 11/19/2023,1:19 [...] notes she agreeable. Marya Mandel, Pharm D, [facility] Clinical Pharmacist 11/18/2023, 1:52 PM * Telephone Encounter - Maria Guadalupe Shore PHARM Tech - 11/18/2023 1:41 PM EDT Caller's name: Apolinar Marcela call back number(OFFICE NUMBER FOR ): [phone] Reason for call: Pt is calling to see if there is someone that can help her sort her pills,she isntcomfortable doing this, she said her daughter helped her but she is currently away, she would like a return call. Thank you, Maria Guadalupe Shore Dump Operator Central[facility] Pharmacy Services 11/18/2023,1:41 PM documented in this encounter Plan of Treatment Upcoming Encounters Date Type Department Care Team (Late st Contact Info) Description 11/21/2023 10:30 AM EDT Imaging Radiology [facility] 132 [facility] [place] [address] 11/24/2023 10:00 AM EDT Office Visit [facility], [facility] [address] [place] [facility] [address] [address] 01/15/2024 10:20 AM EDT Office Visit Nephrology, [facility] [address] [place] [address] Colleen Acosta MD 200 [facility] [place] [address] 01/30/2024 8:30 AM EDT Nurse Only Ancillary [facility] [address] [place], Nurse Annual Wellness [facility] [address] [facility] [place] [address] 05/25/2024 9:00 AM EST Office Visit Family Practice [facility] [address] [facility] [place] [address] Hi Mcdaniels MD 132 [facility] [place] [address] 10/21/2024 10:45 AM EDT Office Visit Dermatology [facility] [address] [place] [address] Orestes Slaughter MD [address] [place] [address] Scheduled Procedures Name Priority Associated Diagnoses Date/Ti [...] Additional history exists CKD PHOS USE SMARTSET 75617 03/04/202402/16, 07/15/2022, 12/18/2020, Additional history exists GFR 04/09/2024 10/08/2023, 0406/2023, 01/27/2023, Additional history exists Albumin/Creatinine Ratio 08/18/2024 024, 07/15/2022, 05/08/2022, Additional history exists CKD HGB USE SMARTSET 90837 08/18/202408/18, 07/15/2022, 11/20/2021, Additional history exists TSH [...] filedocumented as of this encounter Care Teams Video Operator Relationship Specialty Start Date End Date Hi Mcdaniels MD [address] [place] [address] PCP - General Family Medicine 10/26/21 documented as of this encounter
--- OUTSIDE RECORDS SUMMARY | 2023-11-24 22:14 | External Medical Summary | Summary of Care ---
Author Name Unknown Organization [facility] Address [address] [place] [address] Phone [phone] Care Team Providers Care Fish Salter Name Role Phone Hi Mcdaniels MD Primary Care Provider [phone] Reason for Referral * Evaluate & Treat - Unlimited Visits (Within 10 days (routine)) - Authorized Specialty Diagnoses / Procedures Referred By Contshiv t Referred To Contact HOME CARE / Home Care Diagnoses Confusion Hi Mcdaniels MD [address] [place] [address] Referral ID Status Reason Start Date Expiration Date Visits Requested Visits Authorized [id number] Authorized Specialty Services Required 11/19/2023 999 999 Question Answer Referral Priority Within 10 days (routine) Where should this appointment be scheduled? External - [facility] Comments Documentation of Emxc-st-Gifh Encounter Addendum Patient Name: Joanna Gann I certify that this patient is under my care and that I, or a nurse practitioner or physician's behavioral health assistant working with me, had a [id number] encounter that meets the physician rpnc-rv-[id number] encounter requirements with this patient on: The encounter with the patient was in whole, or in part, for the following medical condition, which is the primary reason for home health care (List medical condition): ADL dysfunction I certify that, based on my findings, the following services are medically necessary home health services: Nursing To provide the following care/treatments: (All hospitalists not following the patient after discharge should complete this section): medication education and assistance Primary Care Physician to follow home care plan of care after discharge: Arslan My clinical findings support the need for the above services because: Further, I certify that my clinical findings support that this patient is homebound (i.e. Absences from home require considerable and taxing effort and are for medical reasons or amish services or infrequently or of short duration when for other reason) because: Physician Signature: Date of Signature: Physician Printed Name: Radha Cooney LPN Reason for Visit * Reason Comments Medication Question Encounter Details Date Type Department Care Team (Late st Contact Info) Description 11/19/2023 10:30 AM EDT Nurse Only Ancillary [facility] 132 [facility] [place] [address] [facility] 132 [facility] [place] [address] Medication Question Allergies Active Allergy Reactions Criticality Noted Date [...] blood sugar Dx: E11.9 100 Strip 11 10/31/202 2 Active Insulin Syringe 30G X 1/2" 0.5 MLIndications:DM type 2, not at goal ([facility]) Use as directed to administer insulin up to four times daily. Dx code E11.9 100 Each 3 3 Active OneTouch Ultra In Vitro Strip (Glucose [...] hemoglobin A1c goal of less than 8.0% ([facility]) USE UP TO 3 TIMES A DAY E11.9 1 Kit 4 Active Insulin Glargine 100 UNIT/ML Subcutaneous Solution (Lantus) Inject 25 Units under the skin at bedtime. Active Aspirin 81 MG Oral Tablet Delayed Release (SB Low Dose ASA EC)Indications:Dy slipidemia Take 1 Tablet by mouth in the morning. Please provide in pill pack format. 90 Tablet 3 4 Active buPROPion HCl ER (XL) 150 MG Oral Tablet Extended Release 24 Hour (Wellbutrin XL) Take 1 Tablet by mouth in the morning. Please provide in pill pack format. 90 Tablet 3 4 Active Citalopram Hydrobromide 40 MG Oral Tablet (CeleXA)Indicatio ns:Recurrent major depressive disorder, in full remission (HCC) Take 1 Tablet by mouth in the morning. TAKE 1 TABLET BY MOUTH EVERY DAY IN THE MORNING Please provide in pill pack format. 90 Tablet 3 4 Active Gabapentin 100 MG Oral Capsule (Neurontin)Indica tions:New onset of headaches after age 50 TAKE 2 CAPSULES TWICE DAILY Please provide in pill pack format 120 Capsule 5 4 Active hydroCHLOROthiazi de 25 MG Oral Tablet (Hydrodiuril)Lavinia cations:Essential (primary) hypertension Take 1 Tablet by mouth in the morning. Please provide in pill pack format. 90 Tablet 3 4 Active Levothyroxine Sodium 100 MCG Oral Tablet (Levoxyl)Indicati ons:Hypothyroidis m due to acquired atrophy of thyroid Take 1 Tablet by mouth daily first thing in the morning. (at least 30 min prior to breakfast or other meds) Please provide in pill pack format 90 Tablet 3 4 Active metFORMIN HCl ER 500 MG Oral Tablet Extended Release 24 Hour (Glucophage XR)Indications:Ty pe 2 diabetes mellitus with hemoglobin A1c goal of less than 8.0% (HCC) Take 1 Tablet by mouth in the morning and 1 Tablet before bedtime. Please provide in pill pack format. 180 Tablet 3 4 Active Metoprolol Succinate ER 25 MG Oral Tablet Extended Release 24 Hour (toPROL XL) Take 0.5 Tablets by mouth in the morning. Please provide in pill pack format. 60 Tablet 3 4 Active Rosuvastatin Calcium 10 MG Oral Tablet (Crestor) Take 1 Tablet by mouth in the morning. Please provide in pill pack format. 90 Tablet 3 4 Active Vitamin D3 25 MCG Oral Tablet Take 1 Tablet by mouth in the morning. Please provide in pill pack format. 90 Tablet 3 4 Active CPAP every night at bedtime. [...] mRNA, LNP-s, No Pre serve, 2-Dose Series (Bizzingo) 02/16/2021,08/05/2020,07/15/2020 Covid-19, Mrna, Lnp-s, Pf, B ivalent, [...] as of this encounter Progress Notes * Radha Cooney LPN - 11/19/2023 11:13 AM EDT Pt showed up to office for MTM appt that was requested by pt the previous day. Pt did not check in and went upstairs (incorrect location) and sat for 30+ minutes. When pt asked how much longer PAR staff advised pt that she would need to go downstairs. PAR staff teams messaged asking if she could still be seen. MTM could no longer see, pt was added to nurse schedule to go over medications. PT veryconfused, unsure when she took last medications, unsure what medications she is to take and had multiple lists. Pt presented with a Ziploc baggie full of random pills in addition to pill bottles withmixed medications in each. PCNC nurse assisted going through medications. All pill packs emptied, old medication and unidentified medications discarded. 2 pill packs filled for pt use for today through Friday, one for levothyroxine by itself (with note of what medication it is and how to take) and one for AM and PM medications for remaining 4 days. Updated medication list, printed for pt. Other and outdated lists shredded to avoid future confusion. Urine ordered and tested to ensure no UTI Pt states she has a headache, states she is feeling unwell Offered to call ambulance, pt states she would prefer not to go to hospital Offered to call taxi (pt drove self) pt refused, states she will be fine to go home. Well call made, pt arrived home safely PCP aware Pt agreeable to discontinue [facility] for medication refills, agreed to pill packs through [facility] notified of change Pt agreeable to home health through [facility] for medication education and assistance. Office of aging notified, faxed demographics att: Tanisha Pt gave verbal permission to speak with daughter (Brianna Bright) who is residing with pt but [place]of the [place]. Pt had some confusion about when she will return, itinerary of daughters obtained from pt with contact information. Dr. Mcdaniels, please sign pended medications if agreeable Please sign HH referral if agreeable and send back to nurses so we can fax to [facility]. documented in this encounter Plan of Treatment Upcoming Encounters Date Type Department Care Team (Late st Contact Info) Description 11/21/2023 10:30 AM EDT Imaging Radiology [address] [place] [address] 11/24/2023 10:00 AM EDT Office Visit Pharmacy, [facility] 132 [facility] [place] [address] [place] [facility] 132 [facility] [place] [address] 01/15/2024 10:20 AM EDT Office Visit Nephrology, [facility] [address] [place] [address] Colleen Acosta MD [address] [place] [address] [address] 01/30/2024 8:30 AM EDT Nurse Only Ancillary [facility] 132 [facility] [place] [address] [place], Nurse Annual Wellness [address] [address] 05/25/2024 9:00 AM EST Office Visit Family Practice [facility] [address] Hi [facility]iels [facility] [address] 10/21/2024 10:45 AM EDT Office Visit Dermatology [facility] [address] [place] [address] [address] Orestes Slaughter MD [address] [place] [address] Scheduled Procedures Name Priority Associated Diagnoses Date/Ti me COLONOSCOPY FLEXIBLE PROXIMAL DIAGNOSTIC Recall History of colon polyps Scheduled Referrals Name Type Priority Associated Diagnoses Orde r Schedule HOME HEALTH REFERRAL OP Referral Within 10 days (routine) Confusion Ordered: 11/19/2023 Health Maintenance Due Date Last Done Comments DTaP,Tdap,and Td Vaccines (2 - Td or Tdap) 04/19/2021 04/19/2011, 04/04/2003 Colonoscopy 11/03/2021 11/03/2018, 04/19/2008 COVID-19 Vaccine (6 - 2023-24 season) 2023 04/19/2023, 03/12/2022, 02/16/2021, Additional history exists Influenza Vaccine (FLU shot) (#1) 2024 04/19/2023, 01/24/2023, 01/25/2022, Additional history exists Depression Monitoring 01/28/2024 01/27/2023 HbA1c 02/18/2024 08/19/2023, 100 06/2022, 10/09/2022, Additional history exists Diabetic Eye Exam 02/22/2024 02/21/2023, , 02/05/2021, Additional history exists CKD PHOS USE SMARTSET 47644 03/04/202402/16, 07/15/2022, 12/18/2020, Additional history exists GFR 04/09/2024 10/08/2023, 040 06/2023, 01/27/2023, Additional history exists Albumin/Creatinine Ratio 08/18/2024 024, 07/15/2022, 05/08/2022, Additional history exists CKD HGB USE SMARTSET 08455 08/18/202408/18, 07/15/2022, 11/20/2021, Additional history exists TSH 08/18/2024 08/19/2023, 09/17, 07/31/2022, Additional history exists Diabetic Foot Exam 09/30/2024 10/01/2023, 0 07/24/2022, 11/06/2020, Additional history exists DXA Scan 11/28/2028 11/29/2019, 01/18, 02/08/2013, Additional history exists Pneumococcal Vaccine: 65+ Years Completed 11/16/2015, 08/11/2013, 12/22/2005 Zoster Vaccines Completed 04/30/2019, 07/0 12/2018, 01/16/2011 HPV (Gardasil) Vaccine Aged Out [...] Not on filedocumented as of this encounter Procedures Procedure Name Priority Date/Time Associated Diagnosis Comments URINALYSIS, POINT OF CARE Routine 11/19/2023 11:08 AM EDT Confusion documented in this encounter Results * URINALYSIS, POINT OF CARE (11/19/2023 11:08 AM EDT) Color, Urine Yellow Light Yellow, Yellow 11/19/2023 11:40 AM EDT [facility] [place] [facility] Clarity, Urine Clear Clear 11/19/2023 11:40 AM EDT [facility] [place] [facility] Glucose, Urine Negative Negative mg/dL 11/19/2023 11:40 AM EDT [facility] [place] [facility]10 Bilirubin, Urine Negative Negative 11/19/2023 11:40 AM EDT [facility] [place] [facility] Ketone, Urine Negative Negative mg/dL 11/19/2023 11:40 AM EDT [facility] [place] [facility]10 Specific Coin, Urine 1.020 1.003 - 1.030 11/19/2023 11:40 AM EDT [facility] [place] [facility] Blood, Urine Negative Negative 11/19/2023 11:40 AM EDT [facility] [place] [facility] pH, Urine 7.5 5.0, 5.5, 6.0, 6.5, 7.0, 7.5 units 11/19/2023 11:40 AM EDT [facility] [place] [facility]10 Protein, Urine Negative Negative mg/dL 11/19/2023 11:40 AM EDT [facility] [place] [facility]10 Urobilinogen, Urine 0.2 0.2, 1.0 mg/dL 11/19/2023 11:40 AM EDT [facility] [place] [facility]10 Nitrite, Urine Negative Negative 11/19/2023 11:40 AM EDT [facility] [place] [facility]10 Esterase, Urine Negative Negative 11/19/2023 11:40 AM EDT [facility] [place] [facility] Urine 11/19/2023 11:0 8 AM EDT 11/19/2023 11:40 AM EDT Hi Mcdaniels MD LAB POINT OF CARE TEST DOCKED DEVICE UNSOLICITED RESULTS [facility] [place] [place] [facility]10 [address] [place] [address] documented in this encounter Visit Diagnoses Diagnosis Confusion- Primary Unspecified psychosis Dyslipidemia Other and unspecified hyperlipidemia Recurrent major depressive disorder, in full remission (HCC) New onset of headaches after age 50 Headache Essential (primary) hypertension Unspecified essential hypertension Hypothyroidism due to acquired atrophy of thyroid Type 2 diabetes mellitus with hemoglobin A1c goal of less than 8.0% (HCC) documented in this encounter Care Teams Fish Salter Relationship Specialty Start Date End Date Hi Mcdaniels MD [address] [place] [address] PCP - General Family Medicine 10/26/21 documented as of this encounter
--- OUTSIDE RECORDS SUMMARY | 2023-11-24 22:14 | External Medical Summary | Summary of Care ---
Author Name Unknown Organization [facility] Address [address] [place] [address] Phone [phone] Care Team Providers Care Turbine Room Attendant Name Role Phone Hi Mcdaniels MD Primary Care Provider [phone] Reason for Visit * Reason Comments Follow Up Pt here for 3 month follow up Encounter Details Date Type Department Care Team (Late st Contact Info) Description 11/18/2023 10:20 AM EDT Office Visit Family Practice [facility] [address] [facility] [place] [address] [facility]iels [facility] [place] [address] Type 2 diabetes mellitus with hemoglobin A1c goal of less than 8.0% ([facility])*; Hypothyroidism due to acquired atrophy of thyroid; VIRGIL (obstructive sleep apnea); Morbid obesity ([facility]); Mixed stress and urge urinary incontinence; Stage 3b chronic kidney disease ([facility]); Episodic tension-type headache, not intractable; Meningiomas, multiple ([facility]); Depression with anxiety; Mild cognitive impairment Allergies Active Allergy Reactions Criticality Noted Date [...] Tab by mouth every other day. Active CPAP every night at bedtime. Active Diclofenac Sodium 1 % External Gel (Voltaren)Indicatio ns:Quadriceps strain, left, subsequent encounter APPLY TOPICALLY TO AFFECTED AREA 2 TIMES A DAY. APPLY TO KNEES 200 g 3 08/23/2021 Active Glucose Blood In Vitro Strip Use up to 4 times daily to test blood sugar Dx: E11.9 100 Strip 11 03/18/2022 Active Fluticasone Propionate 50 MCG/ACT Nasal SuspensionIndicatio ns:Viral URI with cough,Post-nasal drip Administer 2 Sprays into each nostril in the morning. 1 Each 1 04/02/2022 Active Insulin Syringe 30G X 1/2" 0.5 MLIndications:DM type 2, not at goal (HCC) Use as directed to administer insulin up to four times daily. Dx code E11.9 100 Each 3 12/05/2022 Active Citalopram Hydrobromide 40 MG Oral Tablet [...] THE MORNING 90 Tablet 3 04/08/2023 Active BD Insulin Syringe U/F 30G X 1/2" 0.3 ML (Insulin Syringe-Needle U-100)Indications:D M type 2, not at goal (HCC) USE DIRECTED TO ADMINISTER INSULIN UP TO FOUR TIMES DAILY. DX CODE E11.9 400 Each 3 05/22/2023 Active Mayberry Mediauch Ultra In Vitro Strip (Glucose Blood) USE UP TO 4 TIMES A DAY TO TEST BLOOD SUGAR DX: E11.9 100 Strip 5 06/07/2023 Active Vitamin D3 25 MCG Oral Tablet (Cholecalciferol) Take 1 Tablet by mouth in the morning. 90 Tablet 3 08/12/2023 Active Rosuvastatin Calcium 10 MG Oral Tablet (Crestor) Take 1 Tablet by mouth in the morning. 90 Tablet 3 08/12/2023 Active Metoprolol Succinate ER 25 MG Oral Tablet Extended Release 24 Hour (toPROL XL) Take 0.5 Tablets by mouth in the morning. 60 Tablet 3 08/12/2023 Active Albuterol Sulfate HFA 108 (90 Base) MCG/ACT Inhalation Aerosol SolutionIndications :Viral URI with cough,Bronchitis, complicated INHALE 2 PUFFS BY MOUTH EVERY 4 HOURS NEEDED FOR CONGESTION OR WHEEZING. 18 g 1 09/02/2023 Active USDSio Flex System w/Device KitIndications:Type 2 diabetes mellitus with hemoglobin A1c goal of less than 8.0% (HCC) USE UP TO 3 TIMES A DAY E11.9 1 Kit 09/02/2023 Active Aspirin 81 MG Oral Tablet Delayed Release (SB Low Dose ASA EC)Indications:Dysl ipidemia Take 1 Tablet by mouth in the morning. 90 Tablet 3 09/02/2023 Active metFORMIN HCl ER 500 MG Oral Tablet Extended Release 24 Hour (Glucophage XR)Indications:Type 2 diabetes mellitus with hemoglobin A1c goal of less than 8.0% (HCC) Take 1 Tablet by mouth in the morning and 1 Tablet before bedtime. 180 Tablet 3 10/01/2023 Active documented as of this encounter (statuses [...] mRNA, LNP-s, No Pre serve, 2-Dose Series ([employer]) 02/16/2021,08/05/2020,07/15/2020 Covid-19, Mrna, Lnp-s, Pf, B ivalent, 30 Mcg, IM, 12 yrs and above ([employer]) 03/12/2022 H1N1 2009 Influenza, IM 07/04/2009 Pneumococcal [...] Sign Reading Time Taken Comments Blood Pressure 124/62 11/18/2023 10:21 AM EDT Pulse 64 11/18/2023 10:21 AM EDT Temperature 36.6 C (97.9 F) 11/18/2023 10:21 AM E DT Respiratory Rate 18 11/18/2023 10:21 AM EDT Oxygen Saturation - - Inhaled Oxygen Concentration - - Weight 91.2 kg (201 lb) 11/18/2023 10:21 AM EDT Height 152.4 cm (5') 11/18/2023 10:21 AM EDT Body Mass Index 39.26 11/18/2023 10:21 AM EDT documented in this encounter Progress Notes * Hi Mcdaniels MD - 11/18/2023 11:19 AM EDT SUBJECTIVE: Joanna Gann is a 78 year old female. Chief Complaint Patient presents with Follow Up Pt here for 3 month follow up HPI: Apolinar is doing well. Her daughter is currently visiting her [facility] [facility] but will be returningsoon. She does have some baseline mild cognitive dysfunction but is still able to live independently most of the time. It has helped that her daughter and son in law will be moving back here permanently. She is compliant with all of her medication. She follows with several specialists. Patient Active Problem List Diagnosis DDD (degenerative disc disease), cervical Vitamin D deficiency Dyslipidemia Morbid obesity ([facility]) VIRGIL (obstructive sleep apnea) Hypothyroidism due to acquired atrophy of thyroid HTN, goal below 130/80 Stage 3b chronic kidney disease ([facility]) Type 2 diabetes mellitus with hemoglobin A1c goal of less than 8.0% ([facility]) Type 2 diabetes mellitus with stage 3b chronic kidney disease, with long-term current use of insulin ([facility]) DDD (degenerative disc disease), lumbar Meningiomas, multiple ([facility]) Mixed stress and urge urinary incontinence Depression with anxiety Episodic tension-type headache, not intractable Mild cognitive impairment Current Outpatient Medications Medication Sig Dispense Refill Multiple Vitamins-Minerals (SENIOR MULTIVITAMIN PLUS) Tab Take 1 Tab by mouth every other day. CPAP every night at bedtime. Fluticasone Propionate 50 MCG/ACT Nasal Suspension Administer 2 Sprays into each nostril in the morning. 1 Each 1 Citalopram Hydrobromide 40 MG Oral Tablet (CeleXA) TAKE 1 TABLET BY MOUTH EVERY DAY IN THE MORNING 90 Tablet 3 Gabapentin 100 MG Oral Capsule (Neurontin) TAKE 2 CAPSULES TWICE DAILY 120 Capsule 5 Levothyroxine Sodium 100 MCG Oral Tablet (Levoxyl) TAKE 1 TABLET BY MOUTH EVERY DAY AT LEAST 30 MINBEFORE BREAKFAST OR OTHER MEDICATION 90 Tablet 3 buPROPion HCl ER (XL) 150 MG Oral Tablet Extended Release 24 Hour (Wellbutrin XL) TAKE 1 TABLET (150 MG) BY MOUTH IN THE MORNING. 90 Tablet 3 hydroCHLOROthiazide 25 MG Oral Tablet (Hydrodiuril) TAKE 1 TABLET BY MOUTH EVERY DAY IN THE [id number] Tablet 3 Vitamin D3 25 MCG Oral Tablet (Cholecalciferol) Take 1 Tablet by mouth in the morning. 90 Tablet 3 Rosuvastatin Calcium 10 MG Oral Tablet (Crestor) Take 1 Tablet by mouth in the morning. 90 Tablet 3 Metoprolol Succinate ER 25 MG Oral Tablet Extended Release 24 Hour (toPROL XL) Take 0.5 Tablets by mouth in the morning. 60 Tablet 3 Albuterol Sulfate HFA 108 (90 Base) MCG/ACT Inhalation Aerosol Solution INHALE 2 PUFFS BY MOUTH EVERY 4 HOURS NEEDED FOR CONGESTION OR WHEEZING. 18 g 1 Aspirin 81 MG Oral Tablet Delayed Release (SB Low Dose ASA EC) Take 1 Tablet by mouth in the morning. 90 Tablet 3 metFORMIN HCl ER 500 MG Oral Tablet Extended Release 24 Hour (Glucophage XR) Take 1 Tablet by mouthin the morning and 1 Tablet before bedtime. 180 Tablet 3 Diclofenac Sodium 1 % External Gel (Voltaren) APPLY TOPICALLY TO AFFECTED AREA 2 TIMES A DAY. APPLYTO KNEES 200 g 3 Glucose Blood In Vitro Strip Use up to 4 times daily to test blood sugar Dx: E11.9 100 Strip 11 Insulin Syringe 30G X 1/2" 0.5 ML Use as directed to administer insulin up to four times daily. Dx code E11.9 100 Each 3 BD Insulin Syringe U/F 30G X 1/2" 0.3 ML (Insulin Syringe-Needle U-100) USE DIRECTED TO ADMINISTER INSULIN UP TO FOUR TIMES DAILY. DX CODE E11.9 400 Each 3 OneTouch Ultra In Vitro Strip (Glucose Blood) USE UP TO 4 TIMES A DAY TO TEST BLOOD SUGAR DX: E11.9100 Strip 5 OneTouch Verio Flex System w/Device Kit USE UP TO 3 TIMES A DAY E11.9 1 Kit 0 No current facility-administered medications for this visit. Allergy: Review of patient's allergies indicates: Allergen Reactions Adhesive Tape Other reaction(s): SKIN IRRITATIONS Lipitor [Atorvastatin] Bad dreams Nitrofurantoin Monohydrate Macrocrystals GI sens. Nitrofurantoin Other reaction(s): Gastrointestinal Upset, GI Upset OBJECTIVE: BP 124/62 | Pulse 64 | Temp 36.6 C (97.9 F) (Tympanic) | Resp 18 | Ht 1.524 m (5') | Wt 91.2 kg(201 lb) | BMI 39.26 kg/m | BSA 1.96 m General: alert, healthy, and no distress Head: Normocephalic, No masses, lesions, tenderness or abnormalities Neck: supple, no adenopathy, no bruits, thyroid normal size, non-tender, without nodularity Lungs: chest symmetric with normal AP diameter, no chest deformities noted, no chest wall tenderness, lungs clear to auscultation Heart: regular rate & rhythm, no murmur, and no gallops Pulses: carotid=2/4 w/o bruits Abdomen: abdomen soft, non-tender, normal bowel sounds, and no masses or organomegaly Extremities: less than 2 second capillary refill, no joint deformities, effusion, or inflammation Neuro Exam: alert & oriented x 3 with fluent speech, no focal motor/sensory deficits, gait normal, reflexes normal and symmetric Skin: skin color, texture, turgor are normal, no rashes or significant lesions ASSESSMENT AND PLAN: (E11.9) Type 2 diabetes mellitus with hemoglobin A1c goal of less than 8.0% ([facility]) (primary encounter diagnosis) Plan: continue rx; has follow up with MTM (E03.4) Hypothyroidism due to acquired atrophy of thyroid Plan: euthyroid (G47.33) VIRGIL (obstructive sleep apnea) Plan: stable (E66.01) Morbid obesity (HCC) Plan: stable (N39.46) Mixed stress and urge urinary incontinence Plan: stable (N18.32) Stage 3b chronic kidney disease (HCC) Plan: stable (G44.219) Episodic tension-type headache, not intractable Plan: stable (D42.9) Meningiomas, multiple (HCC) Plan: follows with neurosurgery; follow up MRI this Friday (F41.8) Depression with anxiety Plan: stable (G31.84) Mild cognitive impairment Plan: not progressing at this time Follow up in 6 month(s). No other complaints were offered at this time. Hi Mcdaniels MD documented in this encounter Nursing Notes * Radha Cooney LPN - 11/18/2023 10:21 AM EDT The patient has been properly identified by confirmation of name and date of . Chief Complaint Patient presents with Follow Up Pt here for 3 month follow up documented in this encounter Plan of Treatment Upcoming Encounters Date Type Department Care Team (Late st Contact Info) Description 11/21/2023 10:30 AM EDT Imaging Radiology [facility] 132 [facility] [place] [address] 11/24/2023 10:00 AM EDT Office Visit Pharmacy, [facility] 132 [facility] [place] [address] [place], [facility] 132 [facility] [place] [address] 01/15/2024 10:20 AM EDT Office Visit Nephrology, [facility] [place] [address] Colleen Acosta MD 200 [facility] [place] [address] 01/30/2024 8:30 AM EDT Nurse Only Ancillary [facility] [address] [place], Nurse [facility] [address] [place] [address] 05/25/2024 9:00 AM EST Office Visit [facility] [address] Hi Mcdaniels MD 132 [place] [address] 10/21/2024 10:45 AM EDT Office Visit Dermatology [facility] [address] [place] [address] Orestes Slaughter MD 200 [place] [address] Scheduled Procedures Name Priority Associated Diagnoses Date/Ti [...] Additional history exists CKD PHOS USE SMARTSET 15356 03/04/202402/16, 07/15/2022, 12/18/2020, Additional history exists GFR 04/09/2024 10/08/2023, 06/2023, 01/27/2023, Additional history exists Albumin/Creatinine Ratio 08/18/2024 024, 07/15/2022, 05/08/2022, Additional history exists CKD HGB USE SMARTSET 32258 08/18/202408/18, 07/15/2022, 11/20/2021, Additional history exists TSH [...] hemoglobin A1c goal of less than 8.0% (HCC)- Primary Hypothyroidism due to acquired atrophy of thyroid VIGRIL (obstructive sleep apnea) Obstructive sleep apnea (adult) (pediatric) Morbid obesity (HCC) Morbid obesity Mixed stress and urge urinary incontinence Mixed incontinence urge and stress (male)(female) Stage 3b chronic kidney disease (HCC) Episodic tension-type headache, not intractable Episodic tension type headache Meningiomas, multiple (HCC) Neoplasm of uncertain behavior of meninges Depression with anxiety Dysthymic disorder Mild cognitive impairment Mild cognitive impairment, so stated documented in this encounter Care Teams Turbine Room Attendant Relationship Specialty Start Date End Date Hi Mcdaniels MD 132 [facility] [place] [address] PCP - General Family Medicine 10/26/21 documented as of this encounter
--- OUTSIDE RECORDS SUMMARY | 2023-11-24 22:14 | External Medical Summary | Summary of Care ---
Author Name Unknown Organization [facility] Address [address] [place] [address] Phone [phone] Care Team Providers Care Meter Inspector Name Role Phone Hi Mcdaniels MD Primary Care Provider [phone] Reason for Visit * Reason Onset Date Comments Medication Question 11/18/2023 Encounter Details Date Type Department Care Team (Late st Contact Info) Description 11/18/2023 Telephone Centralized Clinical Pharmacy Services, Ania Asencio [address] [place] [address] [place] [address] [facility] [place] [facility] [address] Medication Question Allergies Active Allergy Reactions Criticality [...] code E11.9 100 Each 3 3 Active [employer]uch Ultra In Vitro Strip (Glucose Blood) USE [...] hemoglobin A1c goal of less than 8.0% ([facility]) USE UP TO 3 TIMES [...] U-100)Indications :DM type 2, not at goal ([facility]) USE DIRECTED TO ADMINISTER INSULIN [...] hemoglobin A1c goal of less than 8.0% ([facility]) Take 1 Tablet by mouth [...] mRNA, LNP-s, No Pre serve, 2-Dose Series ([employer]) 02/16/2021,08/05/2020,07/15/2020 Covid-19, Mrna, Lnp-s, Pf, B ivalent, [...] encounter Miscellaneous Notes * Telephone Encounter - Sonam Hernandez OSA [...] notes she agreeable. Marya Mandel, Pharm D, [facility] 11/18/2023, 1:52 PM * Telephone Encounter - Maria Guadalupe Shore PHARM Tech - 11/18/2023 1:41 PM EDT Caller's name: Apolinar Preferred call back number(OFFICE NUMBER FOR ): [phone] Reason for call: Pt is calling to see if there is someone that can help her sort her pills,she isntcomfortable doing this, she said her daughter helped her but she is currently away, she would like a return call. Thank you, Maria Guadalupe Shore [employer] Officer Centralized Clinical Pharmacy Services 11/18/2023,1:41 PM documented in this encounter Plan of Treatment Upcoming Encounters Date Type Department Care Team (Late st Contact Info) Description 11/21/2023 10:30 AM EDT Imaging Radiology [facility] 1st [facility] 132 [facility] [place] [address] 11/24/2023 10:00 AM EDT Office Visit Pharmacy, [facility] 132 [facility] [place] [address] [facility] [address] [place] [address] 01/15/2024 10:20 AM EDT Office Visit Nephrology, [facility] 200 [facility] [place] [address] Colleen Acosta MD 200 [facility] [place] [address] 01/30/2024 8:30 AM EDT Nurse Only Ancillary [facility] [address] [place] [address] [facility], Nurse Annual Wellness [facility] [address] [place] [address] 05/25/2024 9:00 AM EST Office Visit Family Practice [facility] [address] [place] [address] Hi Mcdaniels MD 132 [place] [address] 10/21/2024 10:45 AM EDT Office Visit Dermatology [facility] 200 [facility] [place] [address] Orestes Slaughter MD 200 [facility] [place] [address] Scheduled Procedures Name Priority Associated Diagnoses Date/Ti [...] Additional history exists CKD PHOS USE SMARTSET 07948 03/04/202402/16, 07/15/2022, 12/18/2020, Additional history exists GFR 04/09/2024 10/08/2023, 0 06/2023, 01/27/2023, Additional history exists Albumin/Creatinine Ratio 08/18/2024 024, 07/15/2022, 05/08/2022, Additional history exists CKD HGB USE SMARTSET 21888 08/18/202408/18, 07/15/2022, 11/20/2021, Additional history exists TSH [...] filedocumented as of this encounter Care Teams Meter Inspector Relationship Specialty Start Date End Date Hi Mcdaniels MD 132 [place] [address] PCP - General Family Medicine 10/26/21 documented as of this encounter
--- OUTSIDE RECORDS SUMMARY | 2023-11-24 22:14 | External Medical Summary | Summary of Care ---
Author Name Unknown Organization [facility] Address [address] [place] [address] Phone [phone] Care Team Providers Care Pet Technologist Name Role Phone Hi Mcdaniels MD Primary Care Provider [phone] Reason for Visit * Reason Onset Date Comments Medication Question 11/18/2023 Encounter Details Date Type Department Care Team (Late st Contact Info) Description 11/18/2023 Telephone Centralized Clinical Pharmacy Services, Ania Asencio [address] [place] [address] [place] [address] [facility] [address] [place] 132 [facility] [address] Medication Question Allergies Active Allergy Reactions Criticality Noted Date Comments Adhesive Tape 03/04/2021 Other reaction(s): SKIN IRRITATIONS Atorvastatin 07/03/2017 Bad dreams Nitrofurantoin Low 08/13/2021 Other reaction(s): Gastrointestinal Upset, GI Upset Nitrofurantoin Monohydrate Macrocrystals 06/10/1997 GI sens. documented as of this encounter (statuses as of 11/18/2023) Medications Medication Sig Dispensed Refills Start Date [...] OR WHEEZING. 18 g 1 09/02/2023 Active [employer] Verio Flex System w/Device KitIndications:Type 2 diabetes [...] as of this encounter (statuses as of 11/18/2023) Active Problems Problem Noted Date Diagnosed Date [...] as of this encounter (statuses as of 11/18/2023) Resolved Problems Problem Noted Date Diagnosed Date [...] as of this encounter (statuses as of 11/18/2023) Immunizations Name Administration Dates Next Due COVID-19 mRNA, LNP-s, No Pre serve, 2-Dose Series ([employer]) 02/16/2021,08/05/2020,07/15/2020 Covid-19, Mrna, Lnp-s, Pf, B ivalent, 30 Mcg, IM, 12 yrs and above ([employer]) 03/12/2022 H1N1 2009 Influenza, IM 07/04/2009 Pneumococcal [...] notes she agreeable. Marya Mandel, Pharm D, [facility] Clinical Pharmacist 11/18/2023, 1:52 PM * Telephone Encounter - Maria Guadalupe Shore PHARM Tech - 11/18/2023 1:41 PM EDT Caller's name: Apolinar Medrano call back number(OFFICE NUMBER FOR ): [phone] Reason for call: Pt is calling to see if there is someone that can help her sort her pills,she isntcomfortable doing this, she said her daughter helped her but she is currently away, she would like a return call. Thank you, Maria Guadalupe Shore Dental Technician Instructor Centralized Clinical Pharmacy Services 11/18/2023,1:41 PM documented in this encounter Plan of Treatment Upcoming Encounters Date Type Department Care Team (Late st Contact Info) Description 11/19/2023 9:00 AM EDT Office Visit Pharmacy, [facility] 132 [facility] [place] [address] [facility] 132 [facility] [place] [address] 11/21/2023 10:30 AM EDT Imaging Radiology [facility] 1st Floor, [place] 132 [facility] [place] [address] 11/24/2023 10:00 AM EDT Office Visit Pharmacy, [facility] 132 [facility] [place] [address] [facility] 132 [facility] [place] [address] 01/15/2024 10:20 AM EDT Office Visit Nephrology, [facility] [address] [place] [address] Colleen Acosta MD [address] [place] [address] 01/30/2024 8:30 AM EDT Nurse Only Ancillary [facility] 132 [facility] [place] [address] [place], Nurse Annual Wellness [facility] 132 [facility] [place] [address] 05/25/2024 9:00 AM EST Office Visit Family Practice [facility] [address] [place] [address] Hi Mcdaniels MD 132 [facility] [place] [address] 10/21/2024 10:45 AM EDT Office Visit Dermatology [facility] [address] [place] [address] Orestes Slaughter MD [address] [place], [place] [address] Scheduled Procedures Name Priority Associated Diagnoses Date/Ti [...] Depression Monitoring 01/28/2024 01/27/2023 HbA1c 02/18/2024 08/19/2023, 10/0 06/2022, 10/09/2022, Additional history exists Diabetic Eye Exam 02/22/2024 02/21/2023, , 02/05/2021, Additional history exists CKD PHOS USE SMARTSET 17238 03/04/202402/16, 07/15/2022, 12/18/2020, Additional history exists GFR 04/09/2024 10/08/2023, 04/0 06/2023, 01/27/2023, Additional history exists Albumin/Creatinine Ratio 08/18/2024 024, 07/15/2022, 05/08/2022, Additional history exists CKD HGB USE SMARTSET 69277 08/18/202408/18, 07/15/2022, 11/20/2021, Additional history exists TSH 08/18/2024 08/19/2023, 09/17, 07/31/2022, Additional history exists Diabetic Foot Exam 09/30/2024 10/01/2023, 0 07/24/2022, 11/06/2020, Additional history exists DXA Scan 11/28/2028 11/29/2019, 01/18, 02/08/2013, Additional history exists Pneumococcal Vaccine: 65+ Years Completed 11/16/2015, 08/11/2013, 12/22/2005 Zoster Vaccines Completed 04/30/2019, 12/2018, 01/16/2011 GARDASIL-HPV IMMUNIZATION SERIES Aged Out No longer eligible based on patient's age to complete this topic Hepatitis B Aged Out No longer eligi ble based on patient's age to complete this topic MENINGOCOCCAL (MENACTRA/MENVEO) Aged Out No longer eligible based on patient's age to complete this topic documented as of this encounter Medical Devices Not on filedocumented as of this encounter Care Teams Pet Technologist Relationship Specialty Start Date End Date Hi Mcdaniels MD [address] [place] [address] PCP - General Family Medicine 10/26/21 documented as of this encounter
--- OUTSIDE RECORDS SUMMARY | 2023-11-24 22:14 | External Medical Summary | Summary of Care ---
Author Name Unknown Organization [facility] Address [address] [place] [address] Phone [phone] Care Team Providers Care Human Resources Manager Manufacturing Name Role Phone Hi Mcdaniels MD Primary Care Provider [phone] Reason for Referral * Evaluate & Treat - Unlimited Visits (Within 10 days (routine)) - Authorized Specialty Diagnoses / Procedures Referred By Contshiv t Referred To Contact HOME CARE / Home Care Diagnoses Confusion Hi Mcdaniels MD [address] [place] [address] Referral ID Status Reason Start Date Expiration Date Visits Requested Visits Authorized [id number] Authorized Specialty Services Required 11/19/[phone] Question Answer Referral Priority Within 10 days (routine) Where should this appointment be scheduled? External - [facility] Comments Documentation of Vjrm-qi-Bzwl Encounter Addendum Patient Name: Joanna Gann I certify that this patient is under my care and that I, or a nurse practitioner or physician's assistant professor of dietetics working with me, had a qrmc-wk-zitd encounter that meets the physician dxqz-zn-wapp encounter requirements with this patient on: The [...] effort and are for medical reasons or scientology services or infrequently or of short duration when for other reason) because: Physician Signature: Date of Signature: Physician Printed Name: Radha Cooney LPN Reason for Visit * Reason Comments Medication Question Encounter Details Date Type Department Care Team (Late st Contact Info) Description 11/19/2023 10:30 AM EDT Nurse Only Ancillary [facility] 132 [facility] [place] [address] [facility] 132 [facility] [place] [address] Medication Question Allergies Active Allergy Reactions Criticality [...] type 2, not at goal ([facility]) Use as directed to administer insulin [...] goal of less than 8.0% ([facility]) USE UP TO 3 TIMES A [...] mRNA, LNP-s, No Pre serve, 2-Dose Series ([employer]) 02/16/2021,08/05/2020,07/15/2020 Covid-19, Mrna, Lnp-s, Pf, B [...] medication refills, agreed to pill packs through [facility] notified of change Pt agreeable to home health through [facility] for medication education and assistance. Office [...] to nurses so we can fax to [facility]. documented in this encounter Plan of Treatment Upcoming Encounters Date Type Department Care Team (Late st Contact Info) Description 11/21/2023 10:30 AM EDT Imaging Radiology [address] [place] [address] 11/24/2023 10:00 AM EDT Office Visit Pharmacy, [facility] 132 [facility] [place] [address] [place] [facility] 132 [facility] [place] [address] 01/15/2024 10:20 AM EDT Office Visit Nephrology, [facility] [address] [place] [address] [address] Colleen Acosta MD [address] [place] [address] [place] [address] 01/30/2024 8:30 AM EDT Nurse Only Ancillary [facility] 132 [facility] [place] [address] [place], Nurse Annual Wellness [address] [address] 05/25/2024 9:00 AM EST Office Visit Family Practice [facility] 132 [facility] [address] Hi Mcdaniels MD 132 [facility] [address] 10/21/2024 10:45 AM EDT Office Visit Dermatology [facility] [address] [place] [place] [address] Orestes Slaughter MD [address] [place] [address] Scheduled Procedures Name Priority Associated Diagnoses Date/Ti [...] Additional history exists CKD PHOS USE SMARTSET 49849 03/04/202402/16, 07/15/2022, 12/18/2020, Additional history exists GFR 04/09/2024 10/08/2023, 040 06/2023, 01/27/2023, Additional history exists Albumin/Creatinine Ratio 08/18/2024 024, 07/15/2022, 05/08/2022, Additional history exists CKD HGB USE SMARTSET 49322 08/18/202408/18, 07/15/2022, 11/20/2021, Additional history exists TSH [...] AM EDT LABORATORY [place] 57-10 Specific [place], Urine 1.020 1.003 - 1.030 11/19/2023 11:40 [...] PINED[place] 57-10 [address] [place] [address] documented in this encounter Visit Diagnoses Diagnosis [...] (HCC) documented in this encounter Care Teams Human Resources Manager Manufacturing Relationship Specialty Start Date End Date Hi Mcdaniels MD 132 [place] [address] PCP - General Family Medicine 10/26/21 documented as of this encounter
--- OUTSIDE RECORDS SUMMARY | 2023-11-24 22:14 | External Medical Summary | Summary of Care ---
Author Name Unknown Organization [facility] Address [address] [place] [facility] [place] [address] Phone [phone] Care Team Providers Care Grain Oilseed Or Pasture Farm Worker Name Role Phone Hi Mcdaniels MD Primary Care Provider [phone] Reason for Visit * Reason Onset Date Comments Medication Question 11/18/2023 Advice 11/19/2023 Encounter Details Date Type Department Care Team (Late st Contact Info) Description 11/18/2023 Telephone Centralized Clinical Pharmacy Services, Ania Asencio [address] [place] [address] [place] [address] [facility] [place] 132 [facility] [place] [address] Medication Question; Advice [...] code E11.9 100 Each 3 3 [employer] Ultra In Vitro Strip (Glucose Blood) USE [...] mRNA, LNP-s, No Pre serve, 2-Dose Series ([employer]) 02/16/2021,08/05/2020,07/15/2020 Covid-19, Mrna, Lnp-s, Pf, B ivalent, 30 Mcg, IM, 12 yrs and above ([employer]) 03/12/2022 H1N1 2009 Influenza, IM 07/04/2009 Pneumococcal [...] encounter Miscellaneous Notes * Telephone Encounter - Demian Marquez, platen press operator - 11/19/2023 1:15 PM EDT Pt calling [...] aware she will be getting medications from [place] but until she starts pill pack she needs her medication organized until they start coming. Placing call to [facility] who stated two of patient's prescriptions went through. The rest are "too soon." Reaching out to Dr. Mcdaniels's Nurse line for assistance. Alee familiar with patient and received warm transfer. Thank you, Demian Marquez Metal Machine Setter I Centralized Clinical Pharmacy Services ([facility]) 11/19/2023,1:19 [...] notes she agreeable. Marya Mandel, Pharm D, [facility] Clinical Pharmacist 11/18/2023, 1:52 PM * Telephone Encounter - Maria Guadalupe Shore PHARM Tech - 11/18/2023 1:41 PM EDT Caller's name: Apolinar Preferred call back number(OFFICE NUMBER FOR ): [phone] Reason for call: Pt is calling to see if there is someone that can help her sort her pills,she isntcomfortable doing this, she said her daughter helped her but she is currently away, she would like a return call. Thank you, Maria Guadalupe Shore Lingo Cleaner Centralized Clinical Pharmacy Services 11/18/2023,1:41 PM documented in this encounter Plan of Treatment Upcoming Encounters Date Type Department Care Team (Late st Contact Info) Description 11/21/2023 10:30 AM EDT Imaging Radiology [facility] 132 [facility] [place] [address] 11/24/2023 10:00 AM EDT Office Visit Pharmacy, [facility] 132 [facility] [place] [address] [place] [facility] [address] [place] [address] 01/15/2024 10:20 AM EDT Office Visit Nephrology, [place] [address] [place] [address] Colleen Acosta MD 200 [facility] [place] [address] 01/30/2024 8:30 AM EDT Nurse Only Ancillary [facility] 132 [facility] [place] [address] [facility], Nurse Annual Wellness [facility] 132 [facility] [place] [address] 05/25/2024 9:00 AM EST Office Visit Family Practice [facility] 132 [facility] [place] [address] Hi Mcdaniels MD [address] [place] [address] 10/21/2024 10:45 AM EDT Office Visit Dermatology [facility] [address] [place], [place] [address] Orestes Slaughter MD 200 [facility] [place] [address] Scheduled Procedures Name Priority Associated Diagnoses Date/Ti [...] Additional history exists CKD PHOS USE SMARTSET 70389 03/04/202402/16, 07/15/2022, 12/18/2020, Additional history exists GFR 04/09/2024 10/08/2023, 04/0 06/2023, 01/27/2023, Additional history exists Albumin/Creatinine Ratio 08/18/2024 024, 07/15/2022, 05/08/2022, Additional history exists CKD HGB USE SMARTSET 61827 08/18/202408/18, 07/15/2022, 11/20/2021, Additional history exists TSH [...] filedocumented as of this encounter Care Teams Grain Oilseed Or Pasture Farm Worker Relationship Specialty Start Date End Date Hi Mcdaniels MD 132 [facility] [place] [address] PCP - General Family Medicine 10/26/21 documented as of this encounter
--- OUTSIDE RECORDS SUMMARY | 2023-11-24 22:14 | External Medical Summary | Summary of Care ---
Author Name Unknown Organization [facility] Address [address] [place] [facility] [place] [address] Phone [phone] Care Team Providers Care Supervisor Cutting Department Name Role Phone Hi Mcdaniels MD Primary Care Provider [phone] Reason for Visit * Reason Onset Date Comments Medication Question 11/18/2023 Advice 11/19/2023 Encounter Details Date Type Department Care Team (Late st Contact Info) Description 11/18/2023 Telephone Centralized Clinical Pharmacy Services, Ania Asencio [address] [place] [address] [place] [address] [facility] [place] 132 [facility] [place] [address] Medication Question; Advice Allergies [...] MLIndications:DM type 2, not at goal ([facility]) Use as directed to administer insulin up to four times daily. Dx code E11.9 100 Each 3 3 Active [employer] Ultra In Vitro Strip (Glucose Blood) USE [...] A1c goal of less than 8.0% ([facility]) USE UP TO 3 TIMES A DAY [...] A1c goal of less than 8.0% ([facility]) Take 1 Tablet by mouth in the [...] mRNA, LNP-s, No Pre serve, 2-Dose Series ([employer]) 02/16/2021,08/05/2020,07/15/2020 Covid-19, Mrna, Lnp-s, Pf, B ivalent, 30 Mcg, IM, 12 yrs and above ([employer]) 03/12/2022 H1N1 2009 Influenza, IM 07/04/2009 Pneumococcal [...] Notes * Telephone Encounter - Demian Marquez, aircraft hydraulic equipment mechanic - 11/19/2023 1:15 PM EDT Pt calling [...] aware she will be getting medications from [place] but until she starts pill pack she needs her medication organized until they start coming. Placing call to [facility] who stated two of patient's prescriptions went through. The rest are "too soon." Reaching out to Dr. Mcdaniels's Nurse line for assistance. Alee familiar with patient and received warm transfer. Thank you, Demian Marquez Systems Programmer Analyst I Centralized Clinical Pharmacy Services ([facility]) 11/19/2023,1:19 [...] agreeable. Marya Mandel, Pharm D, [facility] Clinical Pharmacist 11/18/2023, 1:52 PM * Telephone Encounter - Maria Guadalupe Shore PHARM Tech - 11/18/2023 1:41 PM EDT Caller's name: Apolinar Preferred call back number(OFFICE NUMBER FOR ): [phone] Reason for call: Pt is calling to see if there is someone that can help her sort her pills,she isntcomfortable doing this, she said her daughter helped her but she is currently away, she would like a return call. Thank you, Maria Guadalupe Shore Chemical Compounder Helper Centralized Clinical Pharmacy Services 11/18/2023,1:41 PM documented in this encounter Plan of Treatment Upcoming Encounters Date Type Department Care Team (Late st Contact Info) Description 11/21/2023 10:30 AM EDT Imaging Radiology [facility] 132 [facility] [place] [address] 11/24/2023 10:00 AM EDT Office Visit Pharmacy, [facility] 132 [facility] [place] [address] [place] [facility] [address] [place] [address] 01/15/2024 10:20 AM EDT Office Visit Nephrology, [place] [address] [place] [address] Colleen Acosta MD 200 [facility] [place] [address] 01/30/2024 8:30 AM EDT Nurse Only Ancillary [facility] 132 [facility] [place] [address] [facility], Nurse Annual Wellness [facility] 132 [facility] [place] [address] 05/25/2024 9:00 AM EST Office Visit Family Practice [facility] 132 [facility] [place] [address] Hi Mcdaniels MD [address] [place] [address] 10/21/2024 10:45 AM EDT Office Visit Dermatology [facility] [address] [place], [place] [address] Orestes Slaughter MD 200 [facility] [place] [address] Scheduled Procedures Name Priority Associated Diagnoses Date/Ti [...] Additional history exists CKD PHOS USE SMARTSET 81181 03/04/202402/16, 07/15/2022, 12/18/2020, Additional history exists GFR 04/09/2024 10/08/2023, 04/0 06/2023, 01/27/2023, Additional history exists Albumin/Creatinine Ratio 08/18/2024 024, 07/15/2022, 05/08/2022, Additional history exists CKD HGB USE SMARTSET 39914 08/18/202408/18, 07/15/2022, 11/20/2021, Additional history exists TSH [...] filedocumented as of this encounter Care Teams Supervisor Cutting Department Relationship Specialty Start Date End Date Hi Mcdaniels MD 132 [facility] [place] [address] PCP - General Family Medicine 10/26/21 documented as of this encounter
--- OUTSIDE RECORDS SUMMARY | 2023-11-24 22:14 | External Medical Summary | Summary of Care ---
Author Name Unknown Organization [facility] Address [address] [place] [address] Phone [phone] Care Team Providers Care Supply Coordinator Name Role Phone Hi Mcdaniels MD Primary Care Provider [phone] Reason for Visit * Reason Comments Follow Up Pt here for 3 month follow up Encounter Details Date Type Department Care Team (Late st Contact Info) Description 11/18/2023 10:20 AM EDT Office Visit Family Practice [facility] [address] [facility] [place] [address] Hi Mcdaniels MD [facility] [place] [address] Type 2 diabetes mellitus with hemoglobin A1c goal of less than 8.0% ([facility])*; Hypothyroidism due to acquired atrophy of thyroid; VIRGIL (obstructive sleep apnea); Morbid obesity ([facility]); Mixed stress and urge urinary incontinence; Stage 3b chronic kidney disease ([facility]); Episodic tension-type headache, not intractable; Meningiomas, multiple ([facility]); Depression with anxiety; Mild cognitive impairment Allergies [...] CODE E11.9 400 Each 3 05/22/2023 Active Loylty [employer] Ultra In Vitro Strip (Glucose Blood) USE [...] OR WHEEZING. 18 g 1 09/02/2023 Active bizk.itio Flex System w/Device KitIndications:Type 2 diabetes mellitus [...] to acquired atrophy of thyroi d 12/06/2014 VIGRIL (obstructive sleep apnea) 08/03/2014 Morbid obesity 08/15/2009 [...] mRNA, LNP-s, No Pre serve, 2-Dose Series ([employer]) 02/16/2021,08/05/2020,07/15/2020 Covid-19, Mrna, Lnp-s, Pf, B ivalent, 30 Mcg, IM, 12 yrs and above ([employer]) 03/12/2022 H1N1 2009 Influenza, IM 07/04/2009 Pneumococcal [...] Her daughter is currently visiting her in [facility] but will be returningsoon. She does have [...] cervical Vitamin D deficiency Dyslipidemia Morbid obesity ([facility]) VIRGIL (obstructive sleep apnea) Hypothyroidism due to acquired atrophy of thyroid HTN, goal below 130/80 Stage 3b chronic kidney disease ([facility]) Type 2 diabetes mellitus with hemoglobin A1c goal of less than 8.0% ([facility]) Type 2 diabetes mellitus with stage 3b chronic kidney disease, with long-term current use of insulin ([facility]) DDD (degenerative disc disease), lumbar Meningiomas, multiple ([facility]) Mixed stress and urge urinary incontinence Depression [...] TABLET BY MOUTH EVERY DAY IN THE [id number] Tablet 3 Vitamin D3 25 MCG Oral [...] goal of less than 8.0% ([facility]) (primary encounter diagnosis) Plan: continue rx; has [...] 11/19/2023 9:00 AM EDT Office Visit Pharmacy, [facility] 132 [facility] [place] [address] [facility] [place] [address] 11/21/2023 10:30 AM EDT Imaging Radiology [facility] 132 [facility] [place] [address] 11/24/2023 10:00 AM EDT Office Visit Pharmacy, [facility] 132 [facility] [place] [address] [facility] [place] [address] 01/15/2024 10:20 AM EDT Office Visit Nephrology, [facility] [address] [place] [address] [address] Colleen Acosta MD [address] [place] [address] [place] [address] 01/30/2024 8:30 AM EDT Nurse Only Ancillary [facility] 132 [facility] [address] [place], Nurse Annual Wellness [facility] 132 [place] [address] 05/25/2024 9:00 AM EST Office Visit Family Practice [facility] 132 [facility] [place] [address] Hi Mcdaniels MD 132 [facility] [place] [address] 10/21/2024 10:45 AM EDT Office Visit Dermatology [facility] [address] [place] [address] Orestes Slaughter MD [address] [place] [address] [address] Scheduled Procedures Name Priority Associated Diagnoses Date/Ti [...] Additional history exists CKD PHOS USE SMARTSET 69772 03/04/202402/16, 07/15/2022, 12/18/2020, Additional history exists GFR 04/09/2024 10/08/2023, 040 06/2023, 01/27/2023, Additional history exists Albumin/Creatinine Ratio 08/18/2024 024, 07/15/2022, 05/08/2022, Additional history exists CKD HGB USE SMARTSET 81370 08/18/202408/18, 07/15/2022, 11/20/2021, Additional history exists TSH 08/18/2024 08/19/2023, 09/17, 07/31/2022, Additional history exists Diabetic Foot Exam 09/30/2024 10/01/2023, 0 07/24/2022, 11/06/2020, Additional history exists DXA Scan 11/28/2028 11/29/2019, 092 07/2012, 02/08/2013, Additional history exists Pneumococcal Vaccine: 65+ [...] Hypothyroidism due to acquired atrophy of thyroid VIRGIL (obstructive sleep apnea) Obstructive sleep apnea (adult) [...] stated documented in this encounter Care Teams Supply Coordinator Relationship Specialty Start Date End Date Hi Mcdaniels MD [address] [place] [address] PCP - General Family Medicine 10/26/21 documented as of this encounter
--- OUTSIDE RECORDS SUMMARY | 2023-11-24 22:14 | External Medical Summary | Summary of Care ---
Author Name Unknown Organization [facility] Address [address] [place] [address] Phone [phone] Care Team Providers Care Fireworks Inspector Name Role Phone Hi Mcdaniels MD Primary Care Provider [phone] Reason for Visit * Reason Comments Follow Up Pt here for 3 month follow up Encounter Details Date Type Department Care Team (Late st Contact Info) Description 11/18/2023 10:20 AM EDT Office Visit Family Practice [facility] [address] [facility] [place] [address] Hi [facility]cdaniels MD [facility] [place] [address] Type 2 diabetes mellitus with hemoglobin A1c goal of less than 8.0% ([facility])*; Hypothyroidism due to acquired atrophy of thyroid; VIRGIL (obstructive sleep apnea); Morbid obesity ([facility]); Mixed stress and urge urinary incontinence; Stage 3b chronic kidney disease ([facility]); Episodic tension-type headache, not intractable; Meningiomas, multiple ([facility]); Depression with anxiety; Mild cognitive impairment Allergies [...] CODE E11.9 400 Each 3 05/22/2023 Active MyCarGossipuch Ultra In Vitro Strip (Glucose Blood) USE [...] OR WHEEZING. 18 g 1 09/02/2023 Active PerTrac Financial Solutionsio Flex System w/Device KitIndications:Type 2 diabetes mellitus [...] mRNA, LNP-s, No Pre serve, 2-Dose Series ([employer]) 02/16/2021,08/05/2020,07/15/2020 Covid-19, Mrna, Lnp-s, Pf, B ivalent, 30 Mcg, IM, 12 yrs and above ([employer]) 03/12/2022 H1N1 2009 Influenza, IM 07/04/2009 Pneumococcal [...] Her daughter is currently visiting her in [facility] but will be returningsoon. She does have [...] cervical Vitamin D deficiency Dyslipidemia Morbid obesity ([facility]) VIRGIL (obstructive sleep apnea) Hypothyroidism due to acquired atrophy of thyroid HTN, goal below 130/80 Stage 3b chronic kidney disease ([facility]) Type 2 diabetes mellitus with hemoglobin A1c goal of less than 8.0% ([facility]) Type 2 diabetes mellitus with stage 3b chronic kidney disease, with long-term current use of insulin ([facility]) DDD (degenerative disc disease), lumbar Meningiomas, multiple ([facility]) Mixed stress and urge urinary incontinence Depression [...] TABLET BY MOUTH EVERY DAY IN THE [id number] Tablet 3 Vitamin D3 25 MCG Oral [...] less than 8.0% ([facility]) (primary encounter diagnosis) Plan: continue rx; has [...] 11/19/2023 9:00 AM EDT Office Visit Pharmacy, [facility] 132 [facility] [place] [address] [place] [facility] [place] á[place] [address] 11/21/2023 10:30 AM EDT Imaging Radiology [facility]st [facility] 132 [facility] [place] Á[place] [address] 11/24/2023 10:00 AM EDT Office Visit Pharmacy, [facility] 132 [facility] [place] [address] [facility] [place] [address] 01/15/2024 10:20 AM EDT Office Visit Nephrology, [facility] [address] [place] [address] [address] Colleen Acosta MD [address] [place] [address] 01/30/2024 8:30 AM EDT Nurse Only Ancillary [facility] 132 [facility] [address] [place], Nurse Annual Wellness [facility] 132 [place] [address] 05/25/2024 9:00 AM EST Office Visit Family Practice [facility] 132 [facility] [place] [address] Hi Mcdaniels MD 132 [facility] [place] [address] 10/21/2024 10:45 AM EDT Office Visit Dermatology [facility] [address] [place] [address] Orestes Slaughter MD [address] [place] [address] Scheduled Procedures Name Priority Associated Diagnoses Date/Ti [...] Additional history exists CKD PHOS USE SMARTSET 14665 03/04/202402/16, 07/15/2022, 12/18/2020, Additional history exists GFR 04/09/2024 10/08/2023, 040 06/2023, 01/27/2023, Additional history exists Albumin/Creatinine Ratio 08/18/2024 024, 07/15/2022, 05/08/2022, Additional history exists CKD HGB USE SMARTSET 14281 08/18/202408/18, 07/15/2022, 11/20/2021, Additional history exists TSH [...] stated documented in this encounter Care Teams Fireworks Inspector Relationship Specialty Start Date End Date Hi Mcdaniels MD [address] [place] [address] PCP - General Family Medicine 10/26/21 documented as of this encounter
--- OUTSIDE RECORDS SUMMARY | 2023-11-24 22:14 | External Medical Summary ---
Author Name Unknown Address Unknown Organization K0G:[facility]ATORY [facility] [place] [address] [place] [address] Laboratory Report Ordering Provider Test Date Status JAVI ZHU 11/19/2023 11:08:00 Final Observation Date Value Abnormality Reference (Units ) Status Color of Urine by Auto 11/19/2023 11:08:00 Yellow Light Yellow, Yellow Final Clarity, Urine 11/19/2023 11:08:00 Clear Clear Final Glucose [Mass/volume] in Urine by Automated test strip 11/19/2023 11:08:00 Negative Negative (mg/dL) Final Bilirubin.total [Presence] in Urine by Automated test strip 11/19/2023 11:08:00 Negative Negative Final Ketones [Mass/volume] in Urine by Automated test strip 11/19/2023 11:08:00 Negative Negative (mg/dL) Final Specific gravity, Urine 11/19/2023 11:08:00 1.020 1.003-1.030 Final Hemoglobin [Presence] in Urine by Automated test strip 11/19/2023 11:08:00 Negative Negative Final pH, Urine 11/19/2023 11:08:00 7.5 5.0, 5.5, 6.0, 6.5, 7.0, 7.5 (units) Final Protein [Mass/volume] in Urine by Automated test strip 11/19/2023 11:08:00 Negative Negative (mg/dL) Final Urobilinogen, Urine 11/19/2023 11:08:00 0.2 0.2, 1.0 (mg/dL) Final Nitrite [Presence] in Urine by Automated test strip 11/19/2023 11:08:00 Negative Negative Final Leukocyte esterase [Presence] in Urine by Automated test strip 11/19/2023 11:08:00 Negative Negative Final Performing Location LAB[facility]ATORY [facility] [place] [address] [place] [id number]
--- OUTSIDE RECORDS SUMMARY | 2023-11-24 22:14 | External Medical Summary | Summary of Care ---
Author Name Unknown Organization [facility] Address [address] [place] [address] Phone [phone] Care Team Providers Care Midwife Name Role Phone Hi Mcdaniels MD Primary Care Provider [phone] Reason for Visit * Reason Comments Follow Up Pt here for 3 month follow up Encounter Details Date Type Department Care Team (Late st Contact Info) Description 11/18/2023 10:20 AM EDT Office Visit Family Practice [facility] [address] [facility] [place] [address] [facility]cdaniels MD [facility] [place] [address] Type 2 diabetes mellitus with hemoglobin A1c goal of less than 8.0% ([facility])*; Hypothyroidism due to acquired atrophy of thyroid; VIRGIL (obstructive sleep apnea); Morbid obesity ([facility]); Mixed stress and urge urinary incontinence; Stage 3b chronic kidney disease ([facility]); Episodic tension-type headache, not intractable; Meningiomas, multiple ([facility]); Depression with anxiety; Mild cognitive impairment Allergies [...] CODE E11.9 400 Each 3 05/22/2023 Active [employer]Nowuch Ultra In Vitro Strip (Glucose Blood) USE [...] OR WHEEZING. 18 g 1 09/02/2023 Active [place] Wayio Flex System w/Device KitIndications:Type 2 diabetes mellitus [...] mRNA, LNP-s, No Pre serve, 2-Dose Series ([employer]) 02/16/2021,08/05/2020,07/15/2020 Covid-19, Mrna, Lnp-s, Pf, B ivalent, 30 Mcg, IM, 12 yrs and above ([employer]) 03/12/2022 H1N1 2009 Influenza, IM 07/04/2009 Pneumococcal [...] is currently visiting her in [facility] but will be returningsoon. She [...] cervical Vitamin D deficiency Dyslipidemia Morbid obesity ([facility]) VIRGIL (obstructive sleep apnea) Hypothyroidism due to acquired atrophy of thyroid HTN, goal below 130/80 Stage 3b chronic kidney disease ([facility]) Type 2 diabetes mellitus with hemoglobin A1c goal of less than 8.0% ([facility]) Type 2 diabetes mellitus with stage 3b chronic kidney disease, with long-term current use of insulin ([facility]) DDD (degenerative disc disease), lumbar Meningiomas, multiple ([facility]) Mixed stress and urge urinary incontinence Depression [...] TABLET BY MOUTH EVERY DAY IN THE [id number] Tablet 3 Vitamin D3 25 MCG Oral [...] goal of less than 8.0% ([facility]) (primary encounter diagnosis) Plan: continue rx; has [...] AM EDT Imaging Radiology [facility] [address] [facility] [place] [address] 11/24/2023 10:00 AM EDT Office Visit Pharmacy, [facility] [address] [facility] [place] [address] [place], [facility] [address] [place] [address] 01/15/2024 10:20 AM EDT Office Visit Nephrology, [facility] [address] [facility] [address] [place] [address] Colleen Acosta MD [address] [facility] [address] [place] [address] 01/30/2024 8:30 AM EDT Nurse Only Ancillary [facility] [place] [address] [place], Nurse [facility] [address] [place] [address] 05/25/2024 9:00 AM EST Office Visit Family Practice [facility] [place] [address] Hi Mcdaniels MD [address] [place] [address] 10/21/2024 10:45 AM EDT Office Visit Dermatology [facility] [address] [place] [address] Orestes Slaughter MD 200 [facility] [address] Scheduled Procedures Name Priority Associated Diagnoses Date/Ti [...] Additional history exists CKD PHOS USE SMARTSET 58718 03/04/202402/16, 07/15/2022, 12/18/2020, Additional history exists GFR 04/09/2024 10/08/2023, 06/2023, 01/27/2023, Additional history exists Albumin/Creatinine Ratio 08/18/2024 024, 07/15/2022, 05/08/2022, Additional history exists CKD HGB USE SMARTSET 33470 08/18/202408/18, 07/15/2022, 11/20/2021, Additional history exists TSH 08/18/2024 08/19/2023, 09/17, 07/31/2022, Additional history exists Diabetic Foot Exam 09/30/2024 10/01/2023, 0 07/24/2022, 11/06/2020, Additional history exists DXA Scan 11/28/2028 11/29/2019, 01/18, 02/08/2013, Additional history exists Pneumococcal Vaccine: 65+ Years Completed 11/16/2015, 08/11/2013, 12/22/2005 Zoster Vaccines Completed 04/30/2019, 070 12/2018, 01/16/2011 GARDASIL-HPV IMMUNIZATION SERIES Aged Out [...] stated documented in this encounter Care Teams Midwife Relationship Specialty Start Date End Date Hi Mcdaniels MD [address] [place] [address] PCP - General Family Medicine 10/26/21 documented as of this encounter
--- OUTSIDE RECORDS SUMMARY | 2023-11-24 22:15 | External Medical Summary | Summary of Care ---
Author Name Unknown Organization [facility] Address [address] [place] [address] Phone [phone] Care Team Providers Care Booth Cleaner Name Role Phone Marko Caldwell MD Primary Care Provider [phone] Encounter Details Date Type Department Care Team (Late st Contact Info) Description 09/03/2023 Refill Family Practice [facility] [address] [place] [address] Marko Caldwell MD [address] [place] [id number] Type 2 diabetes mellitus with hemoglobin A1c goal of less than 8.0% ([facility])* Allergies Active Allergy Reactions Criticality Noted Date Comments Adhesive Tape 03/04/2021 Other reaction(s): SKIN IRRITATIONS Atorvastatin 07/03/2017 Bad dreams Nitrofurantoin Low 08/13/2021 Other reaction(s): Gastrointestinal Upset, GI Upset Nitrofurantoin Monohydrate Macrocrystals 06/10/1997 GI sens. documented as of this encounter (statuses as of 09/03/2023) Medications Medication Sig Dispensed Refills Start Date [...] U-100)Indications: DM type 2, not at goal (HCC) USE [...] MCG/ACT Inhalation Aerosol SolutionIndication s:Viral URI with cough,Bronchitis, complicated INHALE 2 PUFFS BY MOUTH EVERY 4 HOURS NEEDED FOR CONGESTION OR WHEEZING. 18 g 1 09/02/2023 Active [employer] Verio Flex System w/Device KitIndications:Typ e 2 diabetes mellitus with hemoglobin A1c goal of less than 8.0% (HCC) USE UP TO 3 TIMES A DAY E11.9 1 Kit 0 09/02/2023 Active Aspirin 81 MG Oral Tablet Delayed Release (SB Low Dose ASA EC)Indications:Dys lipidemia Take 1 Tablet by mouth in the morning. 90 Tablet 3 09/02/2023 Active metFORMIN HCl ER 500 MG Oral Tablet Extended Release 24 Hour (Glucophage XR)Indications:Typ e 2 diabetes mellitus with hemoglobin A1c goal of less than 8.0% (HCC) Take 1 Tablet by mouth in the morning. 90 Tablet 3 09/03/2023 Active metFORMIN HCl ER 500 MG Oral Tablet Extended Release 24 Hour (Glucophage XR) Take 1 Tablet by mouth in the morning. 30 Tablet 3 08/12/2023 4 Discontinue d(Refill) documented as of this encounter (statuses as of 09/03/2023) Active Problems Problem Noted Date Diagnosed Date [...] as of this encounter (statuses as of 09/03/2023) Resolved Problems Problem Noted Date Diagnosed Date [...] as of this encounter (statuses as of 09/03/2023) Immunizations Name Administration Dates Next Due COVID-19 mRNA, LNP-s, No Pre serve, 2-Dose Series ([employer]er) 02/16/2021,08/05/2020,07/15/2020 Covid-19, Mrna, Lnp-s, Pf, B ivalent, 30 Mcg, IM, 12 yrs and above ([employer]) 03/12/2022 H1N1 2009 Influenza, IM 07/04/2009 Pneumococcal [...] encounter Miscellaneous Notes * Telephone Encounter - Marko Caldwell MD - 09/03/2023 5:01 PM EDTSigned Prescriptions: Disp Refills metFORMIN HCl ER 500 MG Oral Tablet Extend*90 Tab*3 Sig: Take 1 Tablet by mouth in the morning.Authorizing Provider: MARKO CALDWELL * Telephone Encounter - Alee Berger LPN - 09/03/2023 3:17 PM EDT 90 day script request Pending Prescriptions: Disp Refills metFORMIN HCl ER 500 MG Oral Tablet Exten*90 Tab*3 Sig: Take 1 Tablet by mouth in the morning. Last Visit: 08/12/2023 (in office), 10/09/2021 (telemedicine) Next Visit: 11/18/2023 Last date the medication was ordered: 08/12/23 Patient Active Problem List Diagnosis Code DDD (degenerative disc disease), cervical M50.30 Vitamin D deficiency E55.9 Dyslipidemia E78.5 Morbid obesity ([facility]) E66.01 VIRGIL (obstructive sleep apnea) G47.33 Hypothyroidism due to acquired atrophy of thyroid E03.4 HTN, goal below 130/80 I10 Stage 3b chronic kidney disease ([facility]) N18.32 Type 2 diabetes mellitus with hemoglobin A1c goal of less than 8.0% ([facility]) E11.9 Type 2 diabetes mellitus with stage 3b chronic kidney disease, with long-term current use of insulin ([facility]) E11.22, N18.32, Z79.4 DDD (degenerative disc disease), lumbar M51.36 Meningiomas, multiple ([facility]) D42.9 Mixed stress and urge urinary incontinence N39.46 Depression with anxiety F41.8 Episodic tension-type headache, not intractable G44.219 Mild cognitive impairment G31.84 Labs: Lab Results Component Value Date/Time CREATININE - [facility] 1.2 (H) 08/19/2023 09:27 AM CREATININE - [facility] 1.4 (H) 11/25/2019 09:52 AM CREATININE, RANDOM URINE - [facility] 136 08/19/2023 09:27 AM CREATININE, RANDOM URINE - [facility] 92 07/30/2018 09:18 AM CREATININE-OUTSIDE LAB 1.3 (A) 05/08/2022 12:00 AM Lab Results Component Value Date/Time POTASSIUM 3.8 07/19/1996 10:20 AM POTASSIUM - [facility] 3.8 08/19/2023 09:27 AM POTASSIUM - [facility] 5.5 (H) 11/25/2019 09:52 AM POTASSIUM-OUTSIDE LAB 3.8 10/12/2021 12:00 AM Lab Results Component Value Date/Time TSH - [facility] 0.44 08/19/2023 09:27 AM TSH - [facility] 0.35 03/08/2020 12:08 PM Lab Results Component Value Date/Time LDL CHOLESTEROL (CALCULATED) - [facility] 76 08/19/2023 09:27 AM LDL CHOLESTEROL (CALCULATED) - [facility] 76 07/15/2022 08:49 AM LDL CHOLESTEROL (CALCULATED) - [facility] 64 11/25/2019 09:52 AM LDL CHOLESTEROL (CALCULATED) - [facility] 69 08/19/2019 08:20 AM LDL CHOLESTEROL (DIRECT MEASURE) - [facility] NOT APPLICABLE 11/25/2019 09:52 AM LDL CHOLESTEROL (DIRECT MEASURE) - [facility] NOT APPLICABLE 08/19/2019 08:20 AM LDL CHOLESTEROL (DIRECT MEASURE) - [facility] 91 01/31/2016 11:54 AM LDL CHOLESTEROL (DIRECT MEASURE) - [facility] 73 09/26/2015 12:00 PM Lab Results Component Value Date/Time ALT - [facility] 15 06/13/2021 09:29 AM ALT - [facility] 13 11/25/2019 09:52 AM Hemoglobin AIC Results: Lab Results Component Value Date/Time HEMOGLOBIN A1C 6.6 (H) 07/19/1996 10:20 AM HEMOGLOBIN A1C 7.6 (H) 04/01/1996 08:55 AM HEMOGLOBIN A1C - [facility] 9.4 (H) 08/19/2023 09:27 AM HEMOGLOBIN A1C - [facility] 9.1 (H) 02/17/2023 10:15 AM HEMOGLOBIN A1C - [facility] 8.2 (H) 10/09/2022 03:17 PM HEMOGLOBIN A1C - [facility] 7.2 (H) 11/25/2019 09:52 AM HEMOGLOBIN A1C - [facility] 7.3 (H) 08/19/2019 08:20 AM HEMOGLOBIN A1C - [facility] 7.2 (H) 01/29/2019 09:04 AM documented in this encounter Plan of Treatment Upcoming Encounters Date Type Department Care Team (Late st Contact Info) Description 09/29/2023 9:45 AM EDT Office Visit Dermatology [facility] [place] [address] [place] [address] Orestes Slaughter MD [address] [place] [address] 10/01/2023 9:30 AM EDT Office Visit Pharmacy, [facility] [address] [facility] [place] [address] [facility] 132 [facility] [place] [address] 11/18/2023 10:20 AM EDT Office Visit Family Practice [facility] [address] [place] [address] Marko Caldwell MD 132 [place] [address] 11/21/2023 10:30 AM EDT Imaging Radiology [facility] [address] [facility] [place] [address] 12/02/2023 2:00 PM EDT Telemedicine Neurosurgery, [place] [address] [place] [address] Zackary Nash MD [address] [place] [address] 01/15/2024 10:20 AM EDT Office Visit Nephrology, [place] [facility] [address] [place] [address] Colleen Acosta MD [address] [place] [address] 01/30/2024 8:30 AM EDT Nurse Only Ancillary [facility] [place] [address] [place] [address] [place] Nurse Annual [facility] [address] [place] [address] Scheduled Procedures Name Priority Associated Diagnoses Date/Ti me COLONOSCOPY FLEXIBLE PROXIMAL DIAGNOSTIC Recall History of colon polyps Health Maintenance Due Date Last Done Comments DTaP,Tdap,and Td Vaccines (2 - Td or Tdap) 04/19/2021 04/19/2011, 04/04/2003 COLONOSCOPY-EVERY 3 YRS AGES 18-100 11/03/2021 11/03/2018, 04/19/2008 Diabetic Foot Exam 07/25/2023 07/24/2022, 0 11/06/2020, 11/25/2019, Additional history exists GFR 02/18/2024 08/19/2023, 01/17, 07/15/2022, Additional history exists HbA1c 02/18/2024 08/19/2023, 1006/2022, 10/09/2022, Additional history exists Diabetic Eye Exam 02/22/2024 02/21/2023, , 02/05/2021, Additional history exists CKD PHOS USE SMARTSET 88207 03/04/202402/16, 07/15/2022, 12/18/2020, Additional history exists Albumin/Creatinine Ratio 08/18/2024 024, 07/15/2022, 05/08/2022, Additional history exists CKD HGB USE SMARTSET 51870 08/18/202408/18, 07/15/2022, 11/20/2021, Additional history exists TSH 08/18/2024 08/19/2023, 09/17, 07/31/2022, Additional history exists DXA Scan 11/28/2028 11/29/2019, 01/18, 02/08/2013, Additional history exists Pneumococcal Vaccine: 65+ Years Completed 11/16/2015, 08/11/2013, 12/22/2005 Zoster Vaccines Completed 04/30/2019, 2019, 01/16/2011 COVID-19 Vaccine Completed 04/19/2023, , 02/16/2021, [...] goal of less than 8.0% (HCC)- Primary documented in this encounter Care Teams Booth Cleaner Relationship Specialty Start Date End Date Marko Caldwell MD [address] [facility] [place] [address] PCP - General Family Medicine 10/26/21 documented as of this encounter
--- OUTSIDE RECORDS SUMMARY | 2023-11-24 22:15 | External Medical Summary | Summary of Care ---
Author Name Unknown Organization [facility] Address [address] [place] [address] Phone [phone] Care Team Providers Care Blackjack Dealer Name Role Phone Hi Mcdaniels MD Primary Care Provider [phone] Reason for Visit * Reason Comments Dosage Adjustment In Person (Anticoag Cl inic) Diabetes Follow-Up Encounter Details Date Type Department Care Team (Late st Contact Info) Description 10/01/2023 9:30 AM EDT Office Visit Pharmacy, [facility] [address] [place] [address] [facility] 132 [place] [address] Type 2 diabetes mellitus with hemoglobin A1c goal of less than 8.0% (HCC)*; Type 2 diabetes mellitus with hemoglobin A1c goal of less than 7.0% (HCC) Allergies Active Allergy Reactions Criticality Noted Date Comments Adhesive Tape 03/04/2021 Other reaction(s): SKIN IRRITATIONS Atorvastatin 07/03/2017 Bad dreams Nitrofurantoin Low 08/13/2021 Other reaction(s): Gastrointestinal Upset, GI Upset Nitrofurantoin Monohydrate Macrocrystals 06/10/1997 GI sens. documented as of this encounter (statuses as of 10/01/2023) Medications Medication Sig Dispensed Refills Start Date [...] OR WHEEZING. 18 g 1 09/02/2023 Active [employer] Verio Flex System w/Device KitIndications:Typ e 2 [...] before bedtime. 180 Tablet 3 10/01/2023 Active metFORMIN HCl ER 500 MG Oral Tablet Extended Release 24 Hour (Glucophage XR)Indications:Typ e 2 diabetes mellitus with hemoglobin A1c goal of less than 8.0% (HCC) Take 1 Tablet by mouth in the morning. 90 Tablet 3 09/03/2023 4 Discontinue d(Refill) documented as of this encounter (statuses as of 10/01/2023) Active Problems Problem Noted Date Diagnosed Date [...] as of this encounter (statuses as of 10/01/2023) Resolved Problems Problem Noted Date Diagnosed Date [...] as of this encounter (statuses as of 10/01/2023) Immunizations Name Administration Dates Next Due COVID-19 mRNA, LNP-s, No Pre serve, 2-Dose Series ([email or web address]) 02/16/2021,08/05/2020,07/15/2020 Covid-19, Mrna, Lnp-s, Pf, B ivalent, [...] on file documented as of this encounter Patient Instructions * Patient Instructions* Marya Mandel, [facility] - 10/01/2023 9:47 AM EDT Diabetes: Keeping Feet Healthy Inspect your feet every day for signs of a problem. Diabetes can damage nerves in your feet and cause neuropathy. This condition makes it hard for you to feel injuries or sore spots. Diabetes can also change blood flow, making it harder for small problems, like a blister, to heal properly. In fact, minor injuries can quickly become serious infections that send you to the hospital. Practice self-care to protect your feet and keep them healthy. Take Special Care Inspect your feet daily for problems such as redness, blisters, cracks, dry skin, or numbness. Use a mirror to see the bottoms of your feet. Or, ask for help. Manage your diabetes. Monitor and control your blood sugar. Take all your medications as prescribed. Avoid walking barefoot, even indoors. Wash your feet with warm water and mild soap. Dry well, especially between toes. Dont treat corns or calluses yourself. Talk to your doctor or seo marketing specialist (a doctor who specializes in foot care) if you need assistance trimming your toenails. Use moisturizing cream or lotion if you have dry skin, but dont use it between toes. Dont use heating pads on your feet. If you have neuropathy, you could get a burn and not feel it. Stop smoking. Smoking restricts blood flow and can make it harder for wounds to heal. Have Regular Checkups Foot problems can develop quickly. So be sure to follow your healthcare teams schedule for regular checkups. During office visits, take off your shoes and socks as soon as you get in the exam room. Ask your healthcare provider to examine your feet for problems. This will make it easier to find and treat small skin irritations before they get worse. Regular checkups can also help keep track of the blood flow and feeling in your feet. If you have neuropathy, you may need to have checkups more often. Wear Proper Footwear Wearing proper footwear is very important. If areas of your feet have been damaged by too much pressure, your healthcare provider may recommend changing your footwear. In some cases, avoiding high heels or tight work boots may be all thats needed. Or, your healthcare provider may recommend special shoes or custom inserts. These help protect your feet and keep existing irritations from getting worse. If you need special footwear, ask your healthcare provider if you qualify for [employer] diabetic shoe program. Make Sure Shoes and Socks Fit Any pair of shoes--new or old--should feel comfortable as soon as you put them on. There shouldnt be any rubbing when you walk. Wear the right shoe for any activity. For instance, a running shoe is designed to keep your feet injury-free while jogging. Buy shoes at the end of the day, when your feet are larger. Make sure they provide support without feeling too loose. Make sure your socks fit, t oo. Wear soft, seamless, well-padded socks for activity. Cotton or microfiber socks are best to help to absorb sweat. To protect your feet, avoid shoes that are open-toed or open-heeled. If you have questions about what kinds of shoes and socks are best, talk to your healthcare team. Get Regular Exercise Regular exercise improves blood flow in your feet. It also increases foot strength and flexibility.Gentle exercises, like walking or riding a stationary bicycle, are best. You can also do special foot exercises. Just be sure to talk with your healthcare provider before starting any exercise program. Also mention if any exercise causes pain, redness, or other signs of foot problems. Note: If you have any kind of break in the skin of your foot or ankle, keep the area clean. Then call your doctor--especially if the area doesnt appear to be healing. [id number] [employer], [address] [place] [address], [place] [address]. All rights reserved. This information is not intended as a substitute for professional medical care. Always follow your healthcare professional's instructions. documented in this encounter Progress Notes * Marya Mandel RPh - 10/01/2023 9:15 AM EDT [facility] - Diabetes Management Progress Note Joanna Gann, identified by name and date of , is a 78 year old female being seen fordiabetes management/education. Patient presents for return diabetic visit. DIABETES: Current diabetic medications: DECREASE: Lantus 25 units daily START: Metformin ER 500 mg daily Serum creatinine: 1.2 mg/dL (H) 08/19/23926 Estimated creatinine clearance: 40 mL/min (A) Medication Injection Site: Abdomen Lifestyle: Diet: unchanged Glucose Review/SMBG: Readings obtained from patient documented BG logbook Pre am Post am Pre Lunch Post Lunch Pre pm Post pm HS 3am 78 127 226 79 164 400 77 262 284 126 275 285 81 185 311 87 179 338 67 157 215 107 199 166 56 281 321 73 202 318 72 143 61 56 76 76 79 Average 78 #DIV/0! #DIV/0! #DIV/0! 198 #DIV/0! 286 #DIV/0! Hi 126 0 0 0 281 0 400 0 Lo 56 0 0 0 [address] 76.17448 0 0 0 196.222 0 287.25 0 Range 70 0 0 0 154 0 234 0 Hypoglycemia: Does your blood sugar go below 70 mg/dL? Yes, AM, will continue to monitor Hyperglycemia symptoms present: none Recent Labs Units 08/19/23 0927 02/17/23 1015 10/09/22 1517 HEMOGLOBIN A1C - [facility] % 9.4* 9.1* 8.2* Recent Labs Units 08/19/23 0927 01/27/23 0851 07/15/22 0849 ESTIMATED GLOMERULAR FILTRATION RATE - [facility] mL/min 45* 45* 48* CREATININE - [facility] mg/dL 1.2* 1.2* 1.2* HYPERTENSION: Patient on ACEi/ARB: no, not indicated BP Readings from Last 3 Encounters: 08/12/23 130/76 07/27/23 132/76 03/17/23 168/84 Blood pressure at goal: yes HYPERLIPIDEMIA: Patient is taking moderate or high intensity statin: yes HEALTH MAINTENANCE REVIEW: Health Maintenance Due Topic Date Due DTaP,Tdap,and Td Vaccines (2 - Td or Tdap) 04/19/2021 Colonoscopy 11/03/2021 Diabetic Foot Exam 07/25/2023 ASSESSMENT & PLAN: BG Readings - Blood sugars uncontrolled. BG values improved but evening/afternoons still trending high Medications - Reviewed current regimen, patient is adherent to regimen. Recommending to increase tometformin BID, will repeat lab work in 1-2 weeks after increase and MTM will monitor BG and kidney function. Diet, Exercise, Lifestyle - No significant lifestyle changes since last visit. Discussed with patient. Patient is agreeable to SMBG 1-3 time(s) daily. Patient aware to contact clinic if any hypoglycemia before next visit. MEDICATION CHANGES: yes, see below; preferred pharmacy: [facility] Diabetic Medications: Lantus 25 units daily INCREASE: Metformin ER 500 mg BID HEALTH MAINTENANCE INTERVENTIONS: Labs: Up to Date Immunizations: Up to Date Foot Exam: Completed today Eye Exam: Up to Date Annual Wellness Visit: due in January 2024 FOLLOW UP: Return to clinic in 8 weeks Visit date not found Marya Mandel RPh Clinical Pharmacist - [facility] 10/01/2023, 9:15 AM Socks and Shoes Removed for Annual Diabetic Foot Screening RIGHT FOOT: No Reddened, Cracking, Or Open Areas Noted. RIGHT Dorsalis Pedis Pulse: Palpable RIGHT Posterior Tibial Pulse: Palpable RIGHT Monofilament:Patient reports feeling monofilament pressure on plantar surface of foot LEFT FOOT: No Reddened, Cracking or Open Areas Noted. LEFT Dorsalis Pedis Pulse: Palpable LEFT Posterior Tibial Pulse: Palpable LEFT Monofilament:Patient reports feeling monofilament pressure on plantar surface of foot Do you need diabetic shoes: No documented in this encounter Plan of Treatment Upcoming Encounters Date Type Department Care Team (Late st Contact Info) Description 11/12/2023 9:30 AM EDT Office Visit Pharmacy, [address] [place] [address] [place] [facility] [[email or web address]] [address] [place] [place] [address] 11/18/2023 10:20 AM EDT Office Visit Family Practice [facility] [address] [place] [address] Hi Mcdaniels MD [address] [place] [address] 11/21/2023 10:30 AM EDT Imaging Radiology [facility] 1st [facility] [address] [place] [address] 01/15/2024 10:20 AM EDT Office Visit Nephrology, [facility] [address] [place] [address] Colleen Acosta MD 200 [facility] [place] [address] 01/30/2024 8:30 AM EDT Nurse Only Ancillary [facility] [address] [place] [address] [place], Nurse Annual Wellness [facility] [[email or web address]] [address] [place] [address] 10/21/2024 10:45 AM EDT Office Visit Dermatology [facility] [address] [place] [address] Orestes Slaughter MD [address] [place] [address] Scheduled Orders Name Type Priority Associated Diagnoses Orde r Schedule BASIC METABOLIC PANEL Lab Routine Type 2 diabetes mellitus with hemoglobin A1c goal of less than 8.0% (HCC) Expected: 10/08/2023 (Approximate), Expires: 09/30/2024 Scheduled Procedures Name Priority Associated Diagnoses Date/Ti me COLONOSCOPY FLEXIBLE PROXIMAL DIAGNOSTIC Recall History of colon polyps Health Maintenance Due Date Last Done Comments DTaP,Tdap,and Td Vaccines (2 - Td or Tdap) 04/19/2021 04/19/2011, 04/04/2003 Colonoscopy 11/03/2021 11/03/2018, 04/19/2008 GFR 02/18/2024 08/19/2023, 01/17, 07/15/2022, Additional history exists HbA1c 02/18/2024 08/19/2023, 06/2022, 10/09/2022, Additional history exists Diabetic Eye Exam 02/22/2024 02/21/2023, , 02/05/2021, Additional history exists CKD PHOS USE SMARTSET 55416 03/04/202402/16, 07/15/2022, 12/18/2020, Additional history exists Albumin/Creatinine Ratio 08/18/2024 024, 07/15/2022, 05/08/2022, Additional history exists CKD HGB USE SMARTSET 98562 08/18/202408/18, 07/15/2022, 11/20/2021, Additional history exists TSH 08/18/2024 08/19/2023, 09/17, 07/31/2022, Additional history exists Diabetic Foot Exam 09/30/2024 10/01/2023, 0 07/24/2022, 11/06/2020, Additional history exists DXA Scan 11/28/2028 11/29/2019, 01/18, 02/08/2013, Additional history exists Pneumococcal Vaccine: 65+ Years Completed 11/16/2015, 08/11/2013, 12/22/2005 Zoster Vaccines Completed 04/30/2019, 070 12/2018, 01/16/2011 COVID-19 Vaccine Completed 04/19/2023, , [...] goal of less than 8.0% (HCC)- Primary Type 2 diabetes mellitus with hemoglobin A1c goal of less than 7.0% (HCC) documented in this encounter Care Teams Blackjack Dealer Relationship Specialty Start Date End Date Hi Mcdaniels MD [address] [place] [address] PCP - General Family Medicine 10/26/21 documented as of this encounter
--- OUTSIDE RECORDS SUMMARY | 2023-11-24 22:15 | External Medical Summary | Summary of Care ---
Author Name Unknown Organization [facility] Address [address] [place] [address] Phone [phone] Care Team Providers Care Survey Director Name Role Phone Marko Caldwell MD Primary Care Provider [phone] Reason for Visit * Reason Comments eRx-Medication Refill Encounter Details Date Type Department Care Team (Late st Contact Info) Description 09/01/2023 Refill Family Practice [facility] [address] [place] [facility] [place] [address] Marko Caldwell MD [address] [facility] [place] [id number] Type 2 diabetes mellitus with hemoglobin A1c goal of less than 8.0% ([facility]) Allergies Active Allergy Reactions Criticality Noted Date Comments Adhesive Tape 03/04/2021 Other reaction(s): SKIN IRRITATIONS Atorvastatin 07/03/2017 Bad dreams Nitrofurantoin Low 08/13/2021 Other reaction(s): Gastrointestinal Upset, GI Upset Nitrofurantoin Monohydrate Macrocrystals 06/10/1997 GI sens. documented as of this encounter (statuses as of 09/02/2023) Medications Medication Sig Dispensed Refills Start Date [...] 03/18/2022 Active Fluticasone Propionate 50 MCG/ACT Nasal SuspensionIndicat [...] 04/08/2023 Active Gabapentin 100 MG Oral Capsule (Neurontin)Indica [...] THE MORNING. 90 Tablet 3 04/08/2023 Active hydroCHLOROthiazi de 25 MG Oral Tablet [...] DX: E11.9 100 Strip 5 06/07/2023 Active metFORMIN HCl ER 500 MG Oral Tablet Extended Release 24 Hour (Glucophage XR) Take 1 Tablet by mouth in the morning. 30 Tablet 3 08/12/2023 Active Vitamin D3 25 MCG Oral Tablet [...] OR WHEEZING. 18 g 1 09/02/2023 Active [employer] Verio Flex System w/Device KitIndications:Ty pe 2 diabetes mellitus with hemoglobin A1c goal of less than 8.0% (HCC) USE UP TO 3 TIMES A DAY E11.9 1 Kit 0 09/02/2023 Active Aspirin 81 MG Oral Tablet Delayed Release (SB Low Dose ASA EC)Indications:Dy slipidemia Take 1 Tablet by mouth in the morning. 90 Tablet 3 09/02/2023 Active [employer] Verio w/Device KitIndications:Ty pe 2 diabetes mellitus with hemoglobin A1c goal of less than 8.0% (HCC) Use up to 3 times a day E11.9 1 Kit 0 03/11/2022 09/02/19 24 Discontinued documented as of this encounter (statuses as of 09/02/2023) Active Problems Problem Noted Date Diagnosed Date [...] as of this encounter (statuses as of 09/02/2023) Resolved Problems Problem Noted Date Diagnosed Date [...] as of this encounter (statuses as of 09/02/2023) Immunizations Name Administration Dates Next Due COVID-19 mRNA, LNP-s, No Pre serve, 2-Dose Series ([employer]) 02/16/2021,08/05/2020,07/15/2020 Covid-19, Mrna, Lnp-s, Pf, B ivalent, 30 Mcg, IM, 12 yrs and above (Pfizer) 03/12/2022 H1N1 2008 Influenza, IM 07/04/2009 Pneumococcal [...] encounter Miscellaneous Notes * Telephone Encounter - Elie Celis, [facility] - 09/02/2023 2:27 PM EDTSigned Prescriptions: Disp Refills [employer]able [employer] System w/Device Kit 1 Kit 0 Sig: USE UP TO 3TIMES A DAY E11.9Authorizing Provider: MARKO CALDWELLOrderdonna User: ELIE CELIS--------- documented in this encounter Plan of Treatment Upcoming Encounters Date Type Department Care Team (Late st Contact Info) Description 09/29/2023 9:45 AM EDT Office Visit Dermatology [facility] 200 [facility] [place] [address] Orestes Slaughter MD 200 [facility] [place] [address] 10/01/2023 9:30 AM EDT Office Visit Pharmacy, [facility] 132 [facility] [place] [address] [facility] 132 [facility] [place] [address] 11/18/2023 10:20 AM EDT Office Visit Family Practice [facility] 132 [facility] [place] [address] Marko Caldwell MD 132 [facility] [place] [address] 11/21/2023 10:30 AM EDT Imaging Radiology [facility]st [facility] 132 [facility] [place] [address] 12/02/2023 2:00 PM EDT Telemedicine Neurosurgery, [place] [address] [place], [place] [phone] Zackary Nash MD [address], [place] [id number] 01/15/2024 10:20 AM EDT Office Visit Nephrology, [facility] [address] [place] [place] [address] Colleen Acosta MD 200 [facility] [place] [address] 01/30/2024 8:30 AM EDT Nurse Only Ancillary [facility] [place] [address] [facility] [address] [facility], Nurse Annual Wellness [facility] [address] [facility] [place] [address] Scheduled Procedures Name Priority Associated Diagnoses Date/Ti [...] Additional history exists CKD PHOS USE SMARTSET 39691 03/04/202402/16, 07/15/2022, 12/18/2020, Additional history exists Albumin/Creatinine Ratio 08/18/2024 024, 07/15/2022, 05/08/2022, Additional history exists CKD HGB USE SMARTSET 97508 08/18/202408/18, 07/15/2022, 11/20/2021, Additional history exists TSH [...] (HCC) documented in this encounter Care Teams Survey Director Relationship Specialty Start Date End Date Marko Caldwell MD [address] [place] [address] PCP - General Family Medicine 10/26/21 documented as of this encounter
--- OUTSIDE RECORDS SUMMARY | 2023-11-24 22:15 | External Medical Summary | Summary of Care ---
Author Name Unknown Organization [facility] Address [address] [place] [address] Phone [phone] Care Team Providers Care Airplane Patroller Name Role Phone Hi Mcdaniels MD Primary Care Provider [phone] Reason for Visit * Reason Onset Date Comments Health Maintenance 09/12/2023 Encounter Details Date Type Department Care Team (Late st Contact Info) Description 09/12/2023 Telephone Family Practice [facility] [address] [facility] [address] Hi Mcdaniels MD [address] [facility] [place] [id number] Health Maintenance Allergies Active Allergy Reactions Criticality Noted Date Comments Adhesive Tape 03/04/2021 Other reaction(s): SKIN IRRITATIONS Atorvastatin 07/03/2017 Bad dreams Nitrofurantoin Low 08/13/2021 Other reaction(s): Gastrointestinal Upset, GI Upset Nitrofurantoin Monohydrate Macrocrystals 06/10/1997 GI sens. documented as of this encounter (statuses as of 09/12/2023) Medications Medication Sig Dispensed Refills Start Date [...] MLIndications:DM type 2, not at goal ([facility]) Use as directed to administer [...] OR WHEEZING. 18 g 1 09/02/2023 Active [employer] Verio Flex System w/Device KitIndications:Type 2 diabetes [...] the morning. 90 Tablet 3 09/03/2023 Active documented as of this encounter (statuses as of 09/12/2023) Active Problems Problem Noted Date Diagnosed Date [...] as of this encounter (statuses as of 09/12/2023) Resolved Problems Problem Noted Date Diagnosed Date [...] as of this encounter (statuses as of 09/12/2023) Immunizations Name Administration Dates Next Due COVID-19 mRNA, LNP-s, No Pre serve, 2-Dose Series ([employer]) 02/16/2021,08/05/2020,07/15/2020 Covid-19, Mrna, Lnp-s, Pf, B ivalent, [...] encounter Miscellaneous Notes * Telephone Encounter - Hortensia TaverasLEI - 09/12/2023 12:24 PM EDT Care Gaps Comprehensive Care Outreach Last Office/Telemedicine Visit: 08/12/2023 (in office), 10/09/2021 (telemedicine) Next Office Visit: 11/18/2023 Hemoglobin AIC Results: Lab Results Component Value [...] - [facility] 7.2 (H) 01/29/2019 09:04 AM BP Readings from Last 1 Encounters: 08/12/23 130/76 Reviewed Health Maintenance below: Health Maintenance Topic Date Due DTaP,Tdap,and Td Vaccines (2 - Td or Tdap) 04/19/2021 COLONOSCOPY-EVERY 3 YRS AGES 18-100 11/03/2021 Diabetic Foot Exam 07/25/2023 Colon my g Care Gap Outreach Action Taken: Flextrip message sent documented in this encounter Plan of Treatment Upcoming Encounters Date Type Department Care Team (Late st Contact Info) Description 09/29/2023 9:45 AM EDT Office Visit Dermatology [facility] 200 [facility] [place] [address] Orestes Slaughter MD 200 [facility] [place] [address] 10/01/2023 9:30 AM EDT Office Visit Pharmacy, [facility] [address] [place] [address] [facility] [address] [place] [address] 11/18/2023 10:20 AM EDT Office Visit Family Practice [facility] [address] [place] [address] Hi Mcdaniels MD [address] [place] [address] 11/21/2023 10:30 AM EDT Imaging Radiology [facility] 1st [facility] [place] [address] 01/15/2024 10:20 AM EDT Office Visit Nephrology, [place] [facility] 200 [facility] [place] [address] Colleen Acosta MD 200 [facility] [place] [address] 01/30/2024 8:30 AM EDT Nurse Only Ancillary [facility] 132 [facility] [place] [address] [facility], Nurse Annual Wellness [facility] 132 [place] [address] Scheduled Procedures Name Priority Associated Diagnoses Date/Ti [...] Additional history exists CKD PHOS USE SMARTSET 40908 03/04/202402/16, 07/15/2022, 12/18/2020, Additional history exists Albumin/Creatinine Ratio 08/18/2024 024, 07/15/2022, 05/08/2022, Additional history exists CKD HGB USE SMARTSET 02831 08/18/202408/18, 07/15/2022, 11/20/2021, Additional history exists TSH [...] filedocumented as of this encounter Care Teams Airplane Patroller Relationship Specialty Start Date End Date Hi Mcdaniels MD [address] [place] [address] PCP - General Family Medicine 10/26/21 documented as of this encounter
--- OUTSIDE RECORDS SUMMARY | 2023-11-24 22:15 | External Medical Summary | Summary of Care ---
Author Name Unknown Organization [facility] Address [address] [facility] [facility] [place] [place] [address] Phone [phone] Care Team Providers Care Media Center Assistant Name Role Phone Marko Caldwell MD Primary Care Provider [phone] Reason for Visit * Reason Comments Follow Up Patient here for a s kin check. She has a scabbed growth on her collar area that she says her fall alert rubs against. Encounter Details Date Type Department Care Team (Late st Contact Info) Description 09/29/2023 9:45 AM EDT Office Visit Dermatology [facility] [place] [address] [facility] [place] [address] Orestes Slaughter MD 200 [facility] [place] [address] Actinic skin damage*; Seborrheic keratoses; Hx of squamous cell carcinoma; Scar; Actinic keratosis; Skin neoplasm Allergies Active Allergy Reactions Criticality Noted Date Comments Adhesive Tape 03/04/2021 Other reaction(s): SKIN IRRITATIONS Atorvastatin 07/03/2017 Bad dreams Nitrofurantoin Low 08/13/2021 Other reaction(s): Gastrointestinal Upset, GI Upset Nitrofurantoin Monohydrate Macrocrystals 06/10/1997 GI sens. documented as of this encounter (statuses as of 09/29/2023) Medications Medication Sig Dispensed Refills Start Date [...] 09/02/2023 Active OneTouch Verio Flex System w/Device KitIndications:Type 2 diabetes [...] as of this encounter (statuses as of 09/29/2023) Active Problems Problem Noted Date Diagnosed Date [...] as of this encounter (statuses as of 09/29/2023) Resolved Problems Problem Noted Date Diagnosed Date [...] as of this encounter (statuses as of 09/29/2023) Immunizations Name Administration Dates Next Due COVID-19 mRNA, LNP-s, No Pre serve, 2-Dose Series ([employer]) 02/16/2021,08/05/2020,07/15/2020 Covid-19, Mrna, Lnp-s, Pf, B ivalent, 30 Mcg, IM, 12 yrs and above ([employer]) 03/12/2022 H1N1 2009 Influenza, IM 07/04/2009 Pneumococcal [...] as of this encounter Progress Notes * Orestes Slaughter MD - 09/29/2023 9:46 AM EDT SUBJECTIVE: Chief Complaint: Chief Complaint Patient presents with Follow Up Patient here for a skin check. She has a scabbed growth on her collar area that she says her fall alert rubs against. HPI: Joanna Gann is a 78 year old female seen for a full skin check for history of nonmelanoma skin cancer. Bothersome lesion on collarbone. Rubs on necklace (fall alert). Not sure how long present DERMATOLOGIC HISTORY: 2022- [facility] left lateral cheek 2015 [facility] left mosque REVIEW OF SYSTEMS: CONSTITUTIONAL: negative SKIN: No new or changing moles or rashes other than those noted in HPI HEME/LYMPH: No new or enlarging lumps or bumps OBJECTIVE: GEN: Healthy, alert, no distress, appears oriented, pleasant, and cooperative SKIN: Detailed exam of hair, face, trunk, arms, and legs A. Right collarbone - 5mm hyperkeratotic pink papule - ISK vs SCC Right nasal sidewall x2, right forehead - x3 total gritty erythematous macules/papules Well-healed scar(s) at primary site(s) without evidence of recurrence Scattered on face, chest, back - diffuse mottled hypopigmented and hyperpigmented macules without significant irregularity. Associated telangiectasias At the trunk and extremities are several scattered valadez/brown hyperkeratotic stuck on appearing waxypapules. ASSESSMENT/PLAN: Skin neoplasm A. Right collarbone - 5mm hyperkeratotic pink papule - ISK vs SCC Procedure - Shave/Curette HOLD FOR PATH Shave of the lesion(s) noted above to remove and confirm diagnosis. The procedure, risks, benefits,alternatives and expected outcomes were discussed with the patient and consent was obtained. Time out called. Patient identified, procedure verified, site(s) identified and verified. Patient and staff present in agreement. Area prepped with alcohol and anesthetized using 0.5% lidocaine with epinephrine at 1:200,000 concentration. Shave of lesion(s) performed. 20% AlCl and bandaging applied. Specimen(s) sent to pathology. Patient instructed in routine post-op care. The lesion(s) was/were curetted for cure. Size of lesion: 5mm Size of wound after currettage: 13mm Actinic keratosis -The diagnosis and malignant potential of the lesion was explained. Treatment options were reviewedincluding cryotherapy, topical medications, and observation. All questions were addressed. Procedure - Cryotherapy (Premalignant Destruction) -The patient would like to proceed with cryosurgery;Cryosurgery explained to the patient, consent obtained, patient, site and procedure verified, and then cryotherapy was performed with Liquid Nitrogen via cryo spray unit to 3 lesions. Location noted in physical exam. Post op course explained. -Discussed that if any of these lesions fail to completely resolve after treatment patient should call me for re-evaluation Scar(s), History of Nonmelanoma Skin Cancer - Well healed scar(s) with no evidence of recurrence - Recommended periodic skin exams and instructed to call clinic if patient notices any changing lesions, including rapid enlargement, changes in color or shape or symptoms, bleeding, or other concerns. The common features and behavior of non-melanoma skin cancers (e.g. basal cell carcinoma/squamouscell carcinoma) as well as the features of melanoma were also reviewed. -Daily sun protection recommended including physical (i.e. clothing) and chemical blockers. Broad spectrum sunscreens with at least SPF 30 for UVA and UVA protection were recommended. Chronic Actinic Damage - Discussed that skin changes are due to chronic sun exposure. - Daily sun protection recommended as discussed above Seborrheic keratoses - The benign nature of these lesions was discussed with the patient and that no treatment is indicated today. Orestes Slaughter MD Ref: SELF[[id number]] NO STREET ADDRESS AVAILABLE None (office) None (fax) PCP: MARKO CALDWELL [address] [place] [address] [phone] documented in this encounter Plan of Treatment Upcoming Encounters Date Type Department Care Team (Late st Contact Info) Description 10/01/2023 9:30 AM EDT Office Visit Pharmacy, [facility] [address] [facility] [place] [address] [facility] [place] [address] 11/18/2023 10:20 AM EDT Office Visit Family Practice [facility] [address] [place] [address] Marko Caldwell MD [address] [place] [address] 11/21/2023 10:30 AM EDT Imaging Radiology [facility] [address] [place] [address] 01/15/2024 10:20 AM EDT Office Visit Nephrology, [facility] [address] [facility] [place] [address] Colleen Acosta MD 200 [facility] [place] [address] 01/30/2024 8:30 AM EDT Nurse Only Ancillary [facility] [address] [place] [address] [place], Nurse Annual Wellness [facility] [address] [facility] [place] [address] 10/21/2024 10:45 AM EDT Office Visit Dermatology [facility] [place] [address] [place] [address] Orestes Slaughter MD 200 [facility] [place] [address] Pending Results Name Type Priority Associated Diagnoses Date /Time SURGICAL PATHOLOGY Pathology Routine Skin neoplasm 09/29/2023 9:55 AM EDT Scheduled Procedures Name Priority Associated Diagnoses Date/Ti me COLONOSCOPY FLEXIBLE PROXIMAL DIAGNOSTIC Recall History of colon polyps Health Maintenance Due Date Last Done Comments DTaP,Tdap,and Td Vaccines (2 - Td or Tdap) 04/19/2021 04/19/2011, 04/04/2003 Colonoscopy 11/03/2021 11/03/2018, 04/19/2008 Diabetic Foot Exam 07/25/2023 07/24/2022, 0 11/06/2020, 11/25/2019, Additional history exists GFR 02/18/2024 08/19/2023, 01/17, 07/15/2022, Additional history exists HbA1c 02/18/2024 08/19/2023, 06/2022, 10/09/2022, Additional history exists Diabetic Eye Exam 02/22/2024 02/21/2023, , 02/05/2021, Additional history exists CKD PHOS USE SMARTSET 64941 03/04/202402/16, 07/15/2022, 12/18/2020, Additional history exists Albumin/Creatinine Ratio 08/18/2024 024, 07/15/2022, 05/08/2022, Additional history exists CKD HGB USE SMARTSET 76634 08/18/202408/18, 07/15/2022, 11/20/2021, Additional history exists TSH [...] as of this encounter Visit Diagnoses Diagnosis Actinic skin damage- Primary Other dermatitis due to solar radiation Seborrheic keratoses Hx of squamous cell carcinoma Personal history of malignant neoplasm of other site Scar Scar condition and fibrosis of skin Actinic keratosis Skin neoplasm Neoplasm of unspecified nature of bone, soft tissue, and skin documented in this encounter Care Teams Media Center Assistant Relationship Specialty Start Date End Date Marko Caldwell MD [address] [facility] [place] [address] PCP - General Family Medicine 10/26/21 documented as of this encounter
--- OUTSIDE RECORDS SUMMARY | 2023-11-24 22:15 | External Medical Summary | Summary of Care ---
Author Name Unknown Organization [facility] Address [address] [place] [address] Phone [phone] Care Team Providers Care Senior Piping Designer Name Role Phone Hi Mcdaniels MD Primary Care Provider [phone] Reason for Visit * Reason Comments Outpatient Testing Encounter Details Date Type Department Care Team (Late st Contact Info) Description 10/08/2023 12:00 PM EDT Laboratory Laboratory, [facility] [address] [place] [id number] [facility] [address] [place], [place] [id number] Type 2 diabetes mellitus with hemoglobin A1c goal of less than 8.0% ([facility]) Allergies Active Allergy Reactions Criticality Noted Date Comments Adhesive Tape 03/04/2021 Other reaction(s): SKIN IRRITATIONS Atorvastatin 07/03/2017 Bad dreams Nitrofurantoin Low 08/13/2021 Other reaction(s): Gastrointestinal Upset, GI Upset Nitrofurantoin Monohydrate Macrocrystals 06/10/1997 GI sens. documented as of this encounter (statuses as of 10/08/2023) Medications Medication Sig Dispensed Refills Start Date End Date Status Multiple Vitamins-Minerals (SENIOR MULTIVITAMIN PLUS) Tab Take 1 Tab by mouth every other day. Active CPAP every night at bedtime . Active Diclofenac Sodium 1 % External Gel [...] type 2, not at goal ([facility]) Use as directed to administer insulin up [...] OR WHEEZING. 18 g 1 09/02/2023 Active [employer] Verio Flex System w/Device KitIndications:Type 2 diabetes [...] as of this encounter (statuses as of 10/08/2023) Active Problems Problem Noted Date Diagnosed Date [...] as of this encounter (statuses as of 10/08/2023) Resolved Problems Problem Noted Date Diagnosed Date [...] Per Lipid Taxonomy. FEM STRESS INCONTINENCE 03/19/1999 0409/2020 Menopause 03/19/1999 08/21/2020 Other specified glaucoma 12/26/199801/2015 [...] as of this encounter (statuses as of 10/08/2023) Immunizations Name Administration Dates Next Due COVID-19 mRNA, LNP-s, No Pre serve, 2-Dose Series ([employer]) 02/16/2021,08/05/2020,07/15/2020 Covid-19, Mrna, Lnp-s, Pf, B [...] on file documented as of this encounter Plan of Treatment Upcoming Encounters Date Type Department Care Team (Late st Contact Info) Description 11/12/2023 9:30 AM EDT [facility] [address] [place] [address] [facility] [address] [place] [address] 11/18/2023 10:20 AM EDT Office Visit Family Practice [facility] [address] [place] [address] Hi Mcdaniels MD [address] [place] [address] 11/21/2023 10:30 AM EDT Imaging Rad[facility] [address] [facility] [place] [address] 01/15/2024 10:20 AM EDT Office Visit Nephrology, [facility] [address] [facility] [place] [address] Colleen Acosta MD 200 [facility] [place] [address] 01/30/2024 8:30 AM EDT Nurse Only Ancillary [facility] 132 [facility] [place] [address] [facility], Nurse Annual Wellness [facility] [address] [facility] [place] [address] 10/21/2024 10:45 AM EDT Office Visit Dermatology [facility] [address] [place] [address] Orestes Slaughter MD 200 [facility] [place] [address] Pending Results Name Type Priority Associated Diagnoses Date /Time BASIC METABOLIC PANEL Lab Routine Type 2 diabetes mellitus with hemoglobin A1c goal of less than 8.0% ([facility]) 10/08/2023 11:58 AM EDT Scheduled Procedures Name Priority Associated Diagnoses Date/Ti me COLONOSCOPY FLEXIBLE PROXIMAL DIAGNOSTIC Recall History of colon polyps Health Maintenance Due Date Last Done Comments DTaP,Tdap,and Td Vaccines (2 - Td or Tdap) 04/19/2021 04/19/2011, 04/04/2003 Colonoscopy 11/03/2021 11/03/2018, 04/19/2008 COVID-19 Vaccine ( season) 2023 04/19/2023, 03/12/2022, 02/16/2021, Additional history exists GFR 02/18/2024 08/19/2023, 01/17, 07/15/2022, Additional history exists HbA1c 02/18/2024 08/19/2023, 06/2022, 10/09/2022, Additional history exists Diabetic Eye Exam 02/22/2024 02/21/2023, , 02/05/2021, Additional history exists CKD PHOS USE SMARTSET 91531 03/04/202402/16, 07/15/2022, 12/18/2020, Additional history exists Albumin/Creatinine Ratio 08/18/2024 024, 07/15/2022, 05/08/2022, Additional history exists CKD HGB USE SMARTSET 97529 08/18/202408/18, 07/15/2022, 11/20/2021, Additional history exists TSH 08/18/2024 08/19/2023, 09/17, 07/31/2022, Additional history exists Diabetic Foot Exam 09/30/2024 10/01/2023, 0 07/24/2022, 11/06/2020, Additional history exists DXA Scan 11/28/2028 11/29/2019, 01/18, 02/08/2013, Additional history exists Pneumococcal Vaccine: 65+ Years Completed 11/16/2015, 08/11/2013, 12/22/2005 Zoster Vaccines Completed 04/30/2019, 070 12/2018, 01/16/2011 Influenza Vaccine (FLU shot) Completed 06/2022, 01/24/2023, [...] (HCC) documented in this encounter Care Teams Senior Piping Designer Relationship Specialty Start Date End Date Hi Mcdaniels MD [address] [place] [address] PCP - General Family Medicine 10/26/21 documented as of this encounter
--- OUTSIDE RECORDS SUMMARY | 2023-11-24 22:15 | External Medical Summary | Summary of Care ---
Author Name Unknown Organization [facility] Address [address] [place] [address] Phone [phone] Care Team Providers Care Combo Welder Name Role Phone Hi Mcdaniels MD Primary Care Provider [phone] Reason for Visit * Reason Comments eRx-Medication Refill Encounter Details Date Type Department Care Team (Late st Contact Info) Description 11/16/2023 Refill Family Practice [facility] [address] [place] [address] Hi Mcdaniels MD [address] [facility] [place] [id number] Type 2 diabetes mellitus with hemoglobin A1c goal of 7.0%-8.0% ([facility]) Allergies Active Allergy Reactions Criticality Noted Date Comments Adhesive Tape 03/04/2021 Other reaction(s): SKIN IRRITATIONS Atorvastatin 07/03/2017 Bad dreams Nitrofurantoin Low 08/13/2021 Other reaction(s): Gastrointestinal Upset, GI Upset Nitrofurantoin Monohydrate Macrocrystals 06/10/1997 GI sens. documented as of this encounter (statuses as of 11/17/2023) Medications Medication Sig Dispensed Refills Start Date [...] MLIndications:DM type 2, not at goal ([facility]) Use as directed to administer [...] U-100)Indications:D M type 2, not at goal ([facility]) USE DIRECTED TO ADMINISTER INSULIN UP [...] OR WHEEZING. 18 g 1 09/02/2023 Active [employer].smTouch Verio Flex System w/Device KitIndications:Type 2 diabetes [...] as of this encounter (statuses as of 11/17/2023) Active Problems Problem Noted Date Diagnosed Date [...] as of this encounter (statuses as of 11/17/2023) Resolved Problems Problem Noted Date Diagnosed Date [...] Per Lipid Taxonomy. FEM STRESS INCONTINENCE 03/19/1999 04/09/2020 Menopause 03/19/1999 08/21/2020 Other specified glaucoma 12/26/199801/2015 [...] as of this encounter (statuses as of 11/17/2023) Immunizations Name Administration Dates Next Due COVID-19 mRNA, LNP-s, No Pre serve, 2-Dose Series ([employer]) 02/16/2021,08/05/2020,07/15/2020 Covid-19, Mrna, Lnp-s, Pf, B ivalent, [...] money to get more. Never true 10/04/2022 Utilities Answer Date Recorded Do you have trouble paying y our heating, water, or electric bill? (Adult - for ages 18 years and over) Not on file 11/04/2023 Is your family able to pay t he heat, water, or electric bill? (Household - for ages 0-17 years) Not on file 11/04/2023 Does your family have access to good internet? (Household - for ages 0-17 years) Not on file 11/04/2023 Social Connections Answer Date Recorded How often do you feel lonely or isolated from those around you? (Adult - for ages 18 years and over) Not on file 11/04/2023 Sex and Gender Information Value Date Recorded Sex Assigned at Female 01/13/2020 10:57 AM EDT Gender Identity Female 01/13/2020 10:57 AM EDT Sexual Orientation Straight 01/13/2020 10 :57 AM EDT Job Start Date Occupation Industry Not on file Not on file Not on file documented as of this encounter Miscellaneous Notes * Telephone Encounter - Gisel Sellers [facility] - 11/17/2023 3:53 PM EDT Refused Prescriptions: Disp Refills Lovastatin 40 MG Oral Tablet 90 Tab*0 Sig: TAKE 1 TABLET BY MOUTH EVERYDAY AT BEDTIMERefused By: GISEL SELLERS for Refusal: Course of treatment complete Apidra 100 UNIT/ML Injection Solution (Ins*10 mL 1 Sig: INJECT 3 UNITS SUBCUTANEOUSLY IF BS 100-150, 5 UNITS IF BS 150-200, 7 UNITS IF 200-250, 10 UNITS IF > 250 FOR SUPPERRefused By: GISEL SELLERS for Refusal: Course of treatment complete documented in this encounter Plan of Treatment Upcoming Encounters Date Type Department Care Team (Late st Contact Info) Description 11/18/2023 10:20 AM EDT Office Visit Family Practice [facility] [address] [place] [address] Hi Mcdaniels MD [address] [place] [address] 11/21/2023 10:30 AM EDT Imaging Radiology [place] [facility] [address] [place] [address] 11/24/2023 10:00 AM EDT Office Visit Pharmacy, [facility] [address] [place] [address] [facility] [address] 01/15/2024 10:20 AM EDT Office Visit Nephrology, [facility] 200 [facility] [place] [address] Colleen Acosta MD 200 [facility] [place] [address] 01/30/2024 8:30 AM EDT Nurse Only Ancillary [facility] [address] [facility], Nurse Annual Wellness [facility] [address] [facility] [address] 10/21/2024 10:45 AM EDT Office Visit Dermatology [facility] 200 [facility] [place] [address] Orestes Slaughter MD 200 [facility] [place] [address] Scheduled Procedures Name Priority Associated Diagnoses Date/Ti [...] Additional history exists CKD PHOS USE SMARTSET 77765 03/04/202402/16, 07/15/2022, 12/18/2020, Additional history exists GFR 04/09/2024 10/08/2023, 040 06/2023, 01/27/2023, Additional history exists Albumin/Creatinine Ratio 08/18/2024 024, 07/15/2022, 05/08/2022, Additional history exists CKD HGB USE SMARTSET 42871 08/18/202408/18, 07/15/2022, 11/20/2021, Additional history exists TSH [...] (HCC) documented in this encounter Care Teams Combo Welder Relationship Specialty Start Date End Date Hi Mcdaniels MD [address] [place] [address] PCP - General Family Medicine 10/26/21 documented as of this encounter
--- OUTSIDE RECORDS SUMMARY | 2023-11-24 22:15 | External Medical Summary | Summary of Care ---
Author Name Unknown Organization [facility] Address [address] [place] [address] Phone [phone] Care Team Providers Care Detail Supervisor Name Role Phone Marko Caldwell MD Primary Care Provider [phone] Reason for Visit * Reason Comments eRx-Medication Refill Encounter Details Date Type Department Care Team (Late st Contact Info) Description 08/31/2023 Refill General Internal Medicine [facility] [address] [place] [address] Lo Rojas MD [address] [place] [address] Viral URI with cough; Bronchitis, complicated Allergies Active Allergy Reactions Criticality Noted Date [...] the morning. 1 Each 1 2 Active Insulin Syringe 30G X 1/2" 0.5 MLIndications:DM type 2, not at goal ([facility]) Use as directed to administer insulin up to four times daily. Dx code E11.9 100 Each 3 3 Active Citalopram Hydrobromide 40 MG Oral [...] THE MORNING 90 Tablet 3 3 Active BD Insulin Syringe U/F 30G [...] DX: E11.9 100 Strip 5 4 Active metFORMIN HCl ER 500 MG Oral Tablet Extended Release 24 Hour (Glucophage XR) Take 1 Tablet by mouth in the morning. 30 Tablet 3 4 Active Vitamin D3 25 MCG Oral Tablet (Cholecalciferol) Take 1 Tablet by mouth in the morning. 90 Tablet 3 4 Active Rosuvastatin Calcium 10 MG Oral Tablet (Crestor) Take 1 Tablet by mouth in the morning. 90 Tablet 3 4 Active Metoprolol Succinate ER 25 MG Oral Tablet Extended Release 24 Hour (toPROL XL) Take 0.5 Tablets by mouth in the morning. 60 Tablet 3 4 Active Albuterol Sulfate HFA 108 (90 Base) MCG/ACT Inhalation Aerosol SolutionIndicatio ns:Viral URI with cough,Bronchitis, complicated INHALE 2 PUFFS BY MOUTH EVERY 4 HOURS NEEDED FOR CONGESTION OR WHEEZING. 18 g 1 4 Active Proventil HFA 108 (90 Base) MCG/ACT Inhalation Aerosol SolutionIndicatio ns:Viral URI with cough,Bronchitis, complicated Inhale 2 Puffs by mouth every 4 hours as needed for Congestion or Wheezing. 18 g 1 4 09/02/19 24 Discontinued Aspirin 81 MG Oral Tablet Delayed Release (SB Low Dose ASA EC) Take 1 Tablet by mouth in the morning. 0 09/02/19 24 Discontinued(Ref ill) documented as of this [...] mRNA, LNP-s, No Pre serve, 2-Dose Series ([employer]) 02/16/2021,08/05/2020,07/15/2020 Covid-19, Mrna, Lnp-s, Pf, B ivalent, 30 Mcg, IM, 12 yrs and above ([employer]) 03/12/2022 H1N1 2009 Influenza, IM 07/04/2009 Pneumococcal [...] Telephone Encounter - Marko Caldwell MD - 09/02/2023 9:20 AM EDTSigned Prescriptions: Disp Refills Albuterol Sulfate HFA 108 (90 Base) MCG/AC*18 g 1 Sig: INHALE 2 PUFFS BY MOUTH EVERY 4 HOURS NEEDED FOR CONGESTION OR WHEEZING. Authorizing Provider: MARKO CALDWELL * Telephone Encounter - Maribel Cummins [facility] - 09/02/2023 9:17 AM EDTPending Prescriptions: Disp Refills Albuterol Sulfate HFA 108 (90 Base) MCG/AC*18 g 1 Sig: INHALE 2 PUFFS BY MOUTH EVERY 4 HOURS NEEDED FOR CONGESTION OR WHEEZING. * Telephone Encounter - Maribel Cummins [facility] - 09/02/2023 9:17 AM EDT Last prescribed for an acute issue. Forwarding to provider. Please authorize refill if appropriate. Thanks, Maribel Cummins Clinical Pharmacist [facility] ([facility] (Formerly [facility]) [phone] 09/02/2023, 9:17 AM * Telephone Encounter - Maribel Cummins [facility] - 09/02/2023 9:16 AM EDT Did you pend patient's preferred pharmacy and medication before forwarding?yes Pharmacy: [id number] [address] [facility] Pending Prescriptions: Disp Refills Albuterol Sulfate HFA 108 (90 Base) MCG/A*18 g 1 Sig: INHALE 2 PUFFS BY MOUTH EVERY 4 HOURS NEEDED FOR CONGESTION OR WHEEZING. Last Visit: Visit date not found (in office), 07/30/2023 (telemedicine) Next Visit: Visit date not found If no future appointments scheduled, and last appointment is greater than a year ago, please schedule patient for a follow-up appointment Last date the medication was ordered: 07/30/23 Is this request for a controlled substance?No Urine Drug Screen:No results found. However, due to the size of the patient record, not all encounters were searched. Please check Results Review for a complete set of results. Patient Phone Numbers Labs: Lab Results Component Value Date/Time CREAT 1.2 (H) 08/19/2023 09:27 AM CREAT 1.3 (A) 05/08/2022 12:00 AM CREAT 1.4 (H) 11/25/2019 09:52 AM POTASSIUM 3.8 08/19/2023 09:27 AM POTASSIUM 3.8 10/12/2021 12:00 AM POTASSIUM 5.5 (H) 11/25/2019 09:52 AM POTASSIUM 3.8 07/19/1996 10:20 AM TSH 0.44 08/19/2023 09:27 AM TSH 0.35 03/08/2020 12:08 PM LDLCALC 76 08/19/2023 09:27 AM LDLCALC 64 11/25/2019 09:52 AM LDLDIRECT NOT APPLICABLE 11/25/2019 09:52 AM LDLDIRECT 91 01/31/2016 11:54 AM ALT 15 06/13/2021 09:29 AM ALT 13 11/25/2019 09:52 AM HGBA1C 9.4 (H) 08/19/2023 09:27 AM HGBA1C 7.2 (H) 11/25/2019 09:52 AM HGBA1C 6.6 (H) 07/19/1996 10:20 AM documented in this encounter Plan of Treatment Upcoming Encounters Date Type Department Care Team (Late st Contact Info) Description 09/29/2023 9:45 AM EDT Office Visit Dermatology [facility] [place] [address] [place], [place] [address] Orestes Slaughter MD [address] [place] [address] 10/01/2023 9:30 AM EDT Office Visit Pharmacy, [facility] [address] [place] [address] [facility] [address] [place] [address] 11/18/2023 10:20 AM EDT Office Visit Family Practice [facility] [address] [place] [address] Marko Caldwell MD 132 [place] [address] 11/21/2023 10:30 AM EDT Imaging Radiology [facility] [address] [place] [address] 12/02/2023 2:00 PM EDT Telemedicine Neurosurgery, [place] [address] [place] [address] Zackary Nash MD [address] [place] [address] 01/15/2024 10:20 AM EDT Office Visit Nephrology, [facility] [address] [facility] [place] [address] Colleen Acosta MD [address] [facility] [place] [address] 01/30/2024 8:30 AM EDT Nurse Only Ancillary [facility] [address] [place] [address] [place], Nurse [facility] [address] [place] [address] Scheduled Procedures Name Priority Associated Diagnoses Date/Ti [...] Additional history exists CKD PHOS USE SMARTSET 69578 03/04/202402/16, 07/15/2022, 12/18/2020, Additional history exists Albumin/Creatinine Ratio 08/18/2024 024, 07/15/2022, 05/08/2022, Additional history exists CKD HGB USE SMARTSET 90584 08/18/202408/18, 07/15/2022, 11/20/2021, Additional history exists TSH [...] as of this encounter Visit Diagnoses Diagnosis Viral URI with cough Acute upper respiratory infections of unspecified site Bronchitis, complicated Bronchitis, not specified as acute or chronic documented in this encounter Care Teams Detail Supervisor Relationship Specialty Start Date End Date Marko Caldwell MD [address] [facility] [place] [address] PCP - General Family Medicine 10/26/21 documented as of this encounter
--- OUTSIDE RECORDS SUMMARY | 2023-11-24 22:15 | External Medical Summary ---
Author Name Unknown Address Unknown Organization [facility] [place] [address] [place] [address] Laboratory Report Ordering Provider Test Date Status KESHA VEGA 10/08/2023 11:58:32 Final Observation Date Value Abnormality Reference (Units ) Status BUN 10/08/2023 11:58:32 25 Above high normal 6-20 (mg/dL) Final Creatinine 10/08/2023 11:58:32 1.4 Above high normal 0.5-1.0 (mg/dL) Final Glomerular filtration rate/1.73 sq M.predicted [Volume Rate/Area] in Serum, Plasma or Blood by Creatinine-based formula (CKD-EPI) 10/08/2023 11:58:32 40 Below low normal >=60 (mL/min) Final eGFR is calculated based on the CKD-EPI 2020 equation Sodium 10/08/2023 11:58:32 141 135-146 (m mol/L) Final Potassium 10/08/2023 11:58:32 4.0 3.5-5.1 (m mol/L) Final Cl 10/08/2023 11:58:32 101 98-107 (mm ol/L) Final CO2 10/08/2023 11:58:32 30 22-32 (mmo l/L) Final Anion gap 10/08/2023 11:58:32 10 7-15 (mmol /L) Final Glucose 10/08/2023 11:58:32 75 70-120 (mg /dL) Final Calcium 10/08/2023 11:58:32 9.5 8.4-10.2 ( mg/dL) Final Performing Location [facility] [address] [place] [address]
--- OUTSIDE RECORDS SUMMARY | 2023-11-24 22:15 | External Medical Summary | Summary of Care ---
Author Name Unknown Organization [facility] Address [address] [place] [address] Phone [phone] Care Team Providers Care Boilermaker Fitter Name Role Phone Hi Mcdaniels MD Primary Care Provider [phone] Reason for Visit * Reason Onset Date Comments Advice 11/03/2023 Encounter Details Date Type Department Care Team (Late st Contact Info) Description 11/03/2023 Telephone Family Practice [facility] [address] [place] [address] Hi Mcdaniels MD [address] [facility] [place] [id number] Advice Allergies Active Allergy Reactions Criticality Noted Date Comments Adhesive Tape 03/04/2021 Other reaction(s): SKIN IRRITATIONS Atorvastatin 07/03/2017 Bad dreams Nitrofurantoin Low 08/13/2021 Other reaction(s): Gastrointestinal Upset, GI Upset Nitrofurantoin Monohydrate Macrocrystals 06/10/1997 GI sens. documented as of this encounter (statuses as of 11/03/2023) Medications Medication Sig Dispensed Refills Start Date [...] OR WHEEZING. 18 g 1 09/02/2023 Active [employer] Verio Flex System w/Device KitIndications:Type 2 diabetes [...] as of this encounter (statuses as of 11/03/2023) Active Problems Problem Noted Date Diagnosed Date [...] as of this encounter (statuses as of 11/03/2023) Resolved Problems Problem Noted Date Diagnosed Date [...] as of this encounter (statuses as of 11/03/2023) Immunizations Name Administration Dates Next Due COVID-19 mRNA, LNP-s, No Pre serve, 2-Dose Series ([employer]) 02/16/2021,08/05/2020,07/15/2020 Covid-19, Mrna, Lnp-s, Pf, B ivalent, [...] encounter Miscellaneous Notes * Telephone Encounter - Zee Iglesias LPN - 11/03/2023 4:05 PM EDT Sent my g * Telephone Encounter - Radha Mccabe LPN - 11/03/2023 12:20 PM EDT Pt is calling and would like to know if she should be taking Lovastatin or Rosuvastatin? States that she she was D/C home with Rosuvastatin. Made pt aware that per her med list she should be taking Rosuvastatin. [facility] not [facility]. Called [facility], spoke with Patricia and made her aware. States that they can fill the Rosuvastatin no sooner than 11/25/23 and they have not filled Lovastatin since the end of July. Called pt to make her aware, no answer. Left a message requesting a return phone call to make her aware of what [facility] advised [facility]. * Telephone Encounter - Elver Reese OSA - 11/03/2023 12:18 PM EDT Reason for patient's call: Asking to speak to nurse about medication. Caller was transferred to Radha at the nurse line. documented in this encounter Plan of Treatment Upcoming Encounters Date Type Department Care Team (Late st Contact Info) Description 11/04/2023 11:20 AM EDT Office Visit [facility] [address] [place] [address] Patrica Adorno DO [address] [place] [address] 11/12/2023 9:30 AM EDT Office Visit Pharmacy, [facility] [address] [place] [address] [facility] [address] [place] [address] 11/18/2023 10:20 AM EDT Office Visit Family Practice [facility] [address] [place] [address] Hi Mcdaniels MD [address] [place] [address] 11/21/2023 10:30 AM EDT Imaging Radiology [facility] 1st [facility] 132 [facility] [place] [address] 01/15/2024 10:20 AM EDT Office Visit Nephrology, [facility] [address] [place] [address] Colleen Acosta MD 200 [facility] [address] [place] [address] 01/30/2024 8:30 AM EDT Nurse Only Ancillary [facility] [address] [facility] [place] [address] [facility], Nurse Annual Wellness [address] [place] [address] 10/21/2024 10:45 AM EDT Office Visit Dermatology [facility] [address] [place] [address] Orestes Slaughter MD 200 [facility] [place] [place] [address] Scheduled Procedures Name Priority Associated Diagnoses Date/Ti me COLONOSCOPY FLEXIBLE PROXIMAL DIAGNOSTIC Recall History of colon polyps Health Maintenance Due Date Last Done Comments DTaP,Tdap,and Td Vaccines (2 - Td or Tdap) 04/19/2021 04/19/2011, 04/04/2003 Colonoscopy 11/03/2021 11/03/2018, 04/19/2008 COVID-19 Vaccine ( season) 2023 04/19/2023, 03/12/2022, 02/16/2021, Additional history exists Depression Monitoring 01/28/2024 01/27/2023 HbA1c 02/18/2024 08/19/2023, 1006/2022, 10/09/2022, Additional history exists Diabetic Eye Exam 02/22/2024 02/21/2023, , 02/05/2021, Additional history exists CKD PHOS USE SMARTSET 21346 03/04/202402/16, 07/15/2022, 12/18/2020, Additional history exists GFR 04/09/2024 10/08/2023, 040 06/2023, 01/27/2023, Additional history exists Albumin/Creatinine Ratio 08/18/2024 024, 07/15/2022, 05/08/2022, Additional history exists CKD HGB USE SMARTSET 24388 08/18/202408/18, 07/15/2022, 11/20/2021, Additional history exists TSH 08/18/2024 08/19/2023, 09/17, 07/31/2022, Additional history exists Diabetic Foot Exam 09/30/2024 10/01/2023, 0 07/24/2022, 11/06/2020, Additional history exists DXA Scan 11/28/2028 11/29/2019, 01/18, 02/08/2013, Additional history exists Pneumococcal Vaccine: 65+ Years Completed 11/16/2015, 08/11/2013, 12/22/2005 Zoster Vaccines Completed 04/30/2019, 12/2018, 01/16/2011 Influenza Vaccine (FLU shot) Completed [...] filedocumented as of this encounter Care Teams Boilermaker Fitter Relationship Specialty Start Date End Date Hi Mcdaniels MD [address] [place] [address] PCP - General Family Medicine 10/26/21 documented as of this encounter
--- OUTSIDE RECORDS SUMMARY | 2023-11-24 22:15 | External Medical Summary | Summary of Care ---
Author Name Unknown Organization [facility] Address [address] [place] [address] Phone [phone] Care Team Providers Care Tail Board Worker Name Role Phone Hi Mcdaniels MD Primary Care Provider [phone] Reason for Visit * Reason Onset Date Comments Appointment 11/04/2023 Encounter Details Date Type Department Care Team (Late st Contact Info) Description 11/04/2023 Telephone Family Practice [facility] [address] [place] [address] Hi Mcdaniels MD [address] [facility] [place] [id number] Appointment Allergies Active Allergy Reactions Criticality Noted Date Comments Adhesive Tape 03/04/2021 Other reaction(s): SKIN IRRITATIONS Atorvastatin 07/03/2017 Bad dreams Nitrofurantoin Low 08/13/2021 Other reaction(s): Gastrointestinal Upset, GI Upset Nitrofurantoin Monohydrate Macrocrystals 06/10/1997 GI sens. documented as of this encounter (statuses as of 11/14/2023) Medications Medication Sig Dispensed Refills Start Date [...] OR WHEEZING. 18 g 1 09/02/2023 Active [employer] Verio Flex System w/Device KitIndications:Type 2 diabetes [...] as of this encounter (statuses as of 11/14/2023) Active Problems Problem Noted Date Diagnosed Date [...] as of this encounter (statuses as of 11/14/2023) Resolved Problems Problem Noted Date Diagnosed Date [...] as of this encounter (statuses as of 11/14/2023) Immunizations Name Administration Dates Next Due COVID-19 mRNA, LNP-s, No Pre serve, 2-Dose Series ([employer]) 02/16/2021,08/05/2020,07/15/2020 Covid-19, Mrna, Lnp-s, Pf, B [...] encounter Miscellaneous Notes * Telephone Encounter - Mimi Shane OSA - 11/04/2023 5:40 PM EDT Office note, orders, and demographics sent to [facility]. Called pt, no answer. LM to return call. Needs return appointment with Dr Adorno, first available in May 2024. * Telephone Encounter - Rosey Flanagan OSA - 11/04/2023 11:52 AM EDT Patient needs to schedule 2 day/night sleep studies I could not schedule those cele her she will need called to set them up and then once she knows the dates she needs to set up a return for 3 weeks after test r completed thank you:) documented in this encounter Plan of Treatment Upcoming Encounters Date Type Department Care Team (Late st Contact Info) Description 11/18/2023 10:20 AM EDT Office Visit Family Practice [facility] [address] [place] [address] Hi Mcdaniels MD [address] [place] [address] 11/21/2023 10:30 AM EDT Imaging Radiology [facility] 1st Floor, [place] [address] [place] [address] 01/15/2024 10:20 AM EDT Office Visit Nephrology, [facility] [address] [place] [address] Colleen Acosta MD [address] [place] [address] 01/30/2024 8:30 AM EDT Nurse Only Ancillary [facility] [address] [place] [address] [place], Nurse [facility] [place] [address] [place] [address] 10/21/2024 10:45 AM EDT Office Visit Dermatology [facility] [place] [address] [place] [address] Orestes Slaughter MD 200 [facility] [place] [address] Scheduled Procedures Name Priority Associated Diagnoses Date/Ti [...] Additional history exists CKD PHOS USE SMARTSET 17456 03/04/202402/16, 07/15/2022, 12/18/2020, Additional history exists GFR 04/09/2024 10/08/2023, 0406/2023, 01/27/2023, Additional history exists Albumin/Creatinine Ratio 08/18/2024 024, 07/15/2022, 05/08/2022, Additional history exists CKD HGB USE SMARTSET 62851 08/18/202408/18, 07/15/2022, 11/20/2021, Additional history exists TSH [...] filedocumented as of this encounter Care Teams Tail Board Worker Relationship Specialty Start Date End Date Hi Mcdaniels MD [address] [place] [address] PCP - General Family Medicine 10/26/21 documented as of this encounter
--- OUTSIDE RECORDS SUMMARY | 2023-11-24 22:15 | External Medical Summary | Summary of Care ---
Author Name Unknown Organization [facility] Address [address] [place] [address] Phone [phone] Care Team Providers Care Piano Instructor Name Role Phone Hi Mcdaniels MD Primary Care Provider [phone] Reason for Referral * Precert (Within 10 days (routine)) - Pending Review Specialty Diagnoses / Procedures Referred By Contac t Referred To Contact Sleep Disorders Diagnoses Obstructive sleep apnea History of weight loss HTN, goal below 130/80 Episodic tension-type headache, not intractable Procedures SLEEP STUDY, W/ CPAP (TREATMENT SETTINGS) Patrica Adorno DO [address] [place] [address] Referral ID Status Reason Start Date Expiration Date V isits Requested Visits Authorized [id number] Pending Review 11/04/2023 999 999 * Precert (Within 10 days (routine)) - Pending Review Specialty Diagnoses / Procedures Referred By Contshiv aguirre Referred To Contact Sleep Disorders Diagnoses Obstructive sleep apnea History of weight loss HTN, goal below 130/80 Episodic tension-type headache, not intractable Procedures SLEEP STUDY, W/O CPAP Patrica Adorno DO [address] [place] [address] Referral ID Status Reason Start Date Expiration Date V isits Requested Visits Authorized [id number] Pending Review 11/04/2023 999 999 Reason for Visit * Reason Comments Follow Up Here return sleep. O SA. CPAP. Hasn't been using the CPAP since recalled. Encounter Details Date Type Department Care Team (Late st Contact Info) Description 11/04/2023 11:20 AM EDT Office Visit Sleep Disorders [facility] [address] [place] [id number] Patrica Adorno, [address] [place] [id number] Obstructive sleep apnea*; History of weight loss; HTN, goal below 130/80; Episodic tension-type headache, not intractable Allergies Active Allergy Reactions Criticality Noted Date Comments Adhesive Tape 03/04/2021 Other reaction(s): SKIN IRRITATIONS Atorvastatin 07/03/2017 Bad dreams Nitrofurantoin Low 08/13/2021 Other reaction(s): Gastrointestinal Upset, GI Upset Nitrofurantoin Monohydrate Macrocrystals 06/10/1997 GI sens. documented as of this encounter (statuses as of 11/04/2023) Medications Medication Sig Dispensed Refills Start Date [...] CODE E11.9 400 Each 3 05/22/2023 Active [employer]oyal Ultra In Vitro Strip (Glucose Blood) USE [...] OR WHEEZING. 18 g 1 09/02/2023 Active VouchedFor Flex System w/Device KitIndications:Type 2 diabetes mellitus [...] as of this encounter (statuses as of 11/04/2023) Active Problems Problem Noted Date Diagnosed Date [...] as of this encounter (statuses as of 11/04/2023) Resolved Problems Problem Noted Date Diagnosed Date [...] as of this encounter (statuses as of 11/04/2023) Immunizations Name Administration Dates Next Due COVID-19 mRNA, LNP-s, No Pre serve, 2-Dose Series (SiOnyx) 02/16/2021,08/05/2020,07/15/2020 Covid-19, Mrna, Lnp-s, Pf, B ivalent, [...] Sign Reading Time Taken Comments Blood Pressure 110/82 11/04/2023 11:19 AM EDT Pulse 62 11/04/2023 11:19 AM EDT Temperature 36.7 C (98.1 F) 11/04/2023 11:19 AM E DT Respiratory Rate 16 11/04/2023 11:19 AM EDT Oxygen Saturation 99% 11/04/2023 11:19 AM EDT Inhaled Oxygen Concentration - - Weight 91.6 kg (202 lb) 11/04/2023 11:19 AM EDT Height 152.4 cm (5') 11/04/2023 11:19 AM EDT Body Mass Index 39.45 11/04/2023 11:19 AM EDT documented in this encounter Patient Instructions * Patient Instructions* Patrica Adorno DO - 11/04/2023 11:45 AM EDT Neck stretching: Bend ear toward shoulder on each side Twist to look over shoulder on each side Bend head forward and backward Tuck your chin, and repeat the above movements documented in this encounter Progress Notes * Patrica Adorno DO - 11/04/2023 11:26 AM EDT Sleep Medicine Follow-Up HISTORY: Joanna Gann is a 78 year old female for follow up of severe VIRGIL. Split-night PSG 06/30/2014 (weight 260 lbs): AHI 58.2, SpO2 zena 73%. Titrated to 15 cwp with resolution of hypoxia. 07/20/21: Her CPAP was last replaced in late 2019, however, the newer CPAP (affected by recall) seemed to cause headaches and rash on chest, so she had changed back to her old CPAP, with improvement inthose sxs. Last seen 07/22/22. She was still using her old REMstar device. Had just received the recall replacement device, but was not sure how to use it. Requested DME assist with showing her how to use the replacement device. [place] 1. She was never able to start using the recall replacement device. Unsure if DME ever showed her how to use it. She feels she is sleeping well without CPAP now. Daughter reports sleep-talking. No sleepwalking. No dream enactment. + snoring. "I'm sure I do." Daughter has not mentioned witnessed apneas. No choking/gasping awakenings. Nighttime awakenings: no Daytime sleepiness: not bothersome, but could nap Daytime napping: no (since her daughter and grandkids are staying with her) Drowsy driving: none + headaches in the morning (start after awakening) [place] Sleepiness Scale: 2 [place] Sleepiness Scale Question 11/04/2023 11:18 AM EDT - Filed by Jennifer Bautista LPN What is the chance you will doze off in the following situation? Sitting and reading No chance of dozing Watching TV No chance of dozing Sitting inactive in a public place, such as a theater or meeting No chance of dozing As a passenger in a car for an hour without a break Slight chance of dozing Lying down to rest in the afternoon when circumstances permit Slight chance of dozing When sitting and talking to someone No chance of dozing When sitting quietly after lunch without alcohol No chance of dozing In a car, while stopped for a few minutes in traffic No chance of dozing Score (range: 0 - 24) 2 CPAP Compliance: Report not available. Most recent data in [place] ends 2021. Equipment: DME Provider is T&B She had received recall replacement CPAP, but has not been using it. Patient Active Problem List Diagnosis DDD (degenerative disc disease), cervical Vitamin D deficiency Dyslipidemia Morbid obesity (HCC) VIRGIL (obstructive sleep apnea) Hypothyroidism due to acquired atrophy of thyroid HTN, goal below 130/80 Stage 3b chronic kidney disease (HCC) Type 2 diabetes mellitus with hemoglobin A1c goal of less than 8.0% (HCC) Type 2 diabetes mellitus with stage 3b chronic kidney disease, with long-term current use of insulin ([facility]) DDD (degenerative disc disease), lumbar Meningiomas, multiple (HCC) Mixed stress and urge urinary incontinence Depression with anxiety Episodic tension-type headache, not intractable Mild cognitive impairment Current Outpatient Medications Medication Sig Dispense Refill metFORMIN HCl ER 500 MG Oral Tablet Extended Release 24 Hour (Glucophage XR) Take 1 Tablet by mouthin the morning and 1 Tablet before bedtime. 180 Tablet 3 Albuterol Sulfate HFA 108 (90 Base) MCG/ACT Inhalation Aerosol Solution INHALE 2 PUFFS BY MOUTH EVERY 4 HOURS NEEDED FOR CONGESTION OR WHEEZING. 18 g 1 Aspirin 81 MG Oral Tablet Delayed Release (SB Low Dose ASA EC) Take 1 Tablet by mouth in the morning. 90 Tablet 3 OneToRapid Action Packaging Verio Flex System w/Device Kit USE UP TO 3 TIMES A DAY E11.9 1 Kit 0 Metoprolol Succinate ER 25 MG Oral Tablet Extended Release 24 Hour (toPROL XL) Take 0.5 Tablets by mouth in the morning. 60 Tablet 3 Rosuvastatin Calcium 10 MG Oral Tablet (Crestor) Take 1 Tablet by mouth in the morning. 90 Tablet 3 Vitamin D3 25 MCG Oral Tablet (Cholecalciferol) Take 1 Tablet by mouth in the morning. 90 Tablet 3 OneTouch Ultra In Vitro Strip (Glucose Blood) USE UP TO 4 TIMES A DAY TO TEST BLOOD SUGAR DX: E11.9100 Strip 5 BD Insulin Syringe U/F 30G X 1/2" 0.3 ML (Insulin Syringe-Needle U-100) USE DIRECTED TO ADMINISTER INSULIN UP TO FOUR TIMES DAILY. DX CODE E11.9 400 Each 3 buPROPion HCl ER (XL) 150 MG Oral Tablet Extended Release 24 Hour (Wellbutrin XL) TAKE 1 TABLET (150 MG) BY MOUTH IN THE MORNING. 90 Tablet 3 Citalopram Hydrobromide 40 MG Oral Tablet (CeleXA) TAKE 1 TABLET BY MOUTH EVERY DAY IN THE MORNING 90 Tablet 3 Gabapentin 100 MG Oral Capsule (Neurontin) TAKE 2 CAPSULES TWICE DAILY 120 Capsule 5 hydroCHLOROthiazide 25 MG Oral Tablet (Hydrodiuril) TAKE 1 TABLET BY MOUTH EVERY DAY IN THE SORRCSF26 Tablet 3 Levothyroxine Sodium 100 MCG Oral Tablet (Levoxyl) TAKE 1 TABLET BY MOUTH EVERY DAY AT LEAST 30 MINBEFORE BREAKFAST OR OTHER MEDICATION 90 Tablet 3 Insulin Syringe 30G X 1/2" 0.5 ML Use as directed to administer insulin up to four times daily. Dx code E11.9 100 Each 3 Fluticasone Propionate 50 MCG/ACT Nasal Suspension Administer 2 Sprays into each nostril in the morning. 1 Each 1 Glucose Blood In Vitro Strip Use up to 4 times daily to test blood sugar Dx: E11.9 100 Strip 11 Diclofenac Sodium 1 % External Gel (Voltaren) APPLY TOPICALLY TO AFFECTED AREA 2 TIMES A DAY. APPLYTO KNEES 200 g 3 Multiple Vitamins-Minerals (SENIOR MULTIVITAMIN PLUS) Tab Take 1 Tab by mouth every other day. CPAP every night at bedtime . (Patient not taking: Reported on 11/04/2023) No current facility-administered medications for this visit. PHYSICAL EXAM: Filed Vitals: 11/04/23 1119 BP: 110/82 Pulse: 62 Resp: 16 Temp: 36.7 C (98.1 F) TempSrc: Tympanic SpO2: 99% Weight: 91.6 kg (202 lb) Height: 1.524 m (5') Body mass index is 39.45 kg/m. General: alert, no acute distress Head: NC/AT Lungs: normal respiratory effort Neuro: speech clear and appropriate ASSESSMENT/PLAN: Obstructive sleep apnea - currently untreated. Did not restart CPAP after last appt. - she does note that she seems to be sleeping okay without CPAP, and on chart review I note that her weight is down about 60 lbs from the time of her original PSG which diagnosed the sleep apnea. Thus, we will initially re-test to see whether she still has significant sleep apnea following that amount of weight loss. Will plan for split-night PSG. - DME: T&B - Continue to avoid driving when feeling sleepy/drowsy. Follow-up with Sleep Medicine after PSG. Patrica Adorno DO documented in this encounter Nursing Notes * Jennifer Bautista LPN - 11/04/2023 11:21 AM EDT Chief Complaint Patient presents with Follow Up Here return sleep. VIRGIL. CPAP. Hasn't been using the CPAP since recalled. [place] Sleepiness Scale Question 11/04/2023 11:18 AM EDT - Filed by Jennifer Bautista LPN What is the chance you will doze off in the following situation? Sitting and reading No chance of dozing Watching TV No chance of dozing Sitting inactive in a public place, such as a theater or meeting No chance of dozing As a passenger in a car for an hour without a break Slight chance of dozing Lying down to rest in the afternoon when circumstances permit Slight chance of dozing When sitting and talking to someone No chance of dozing When sitting quietly after lunch without alcohol No chance of dozing In a car, while stopped for a few minutes in traffic No chance of dozing Score (range: 0 - 24) 2 documented in this encounter Plan of Treatment Upcoming Encounters Date Type Department Care Team (Late st Contact Info) Description 11/12/2023 9:30 AM EDT Office Visit Pharmacy, [address] [place] [id number] [place] [facility] [address] [place] [id number] 11/18/2023 10:20 AM EDT Office Visit Family Practice [facility] [address] [place] [address] Hi Mcdaniels MD [address] [place] [address] 11/21/2023 10:30 AM EDT Imaging Radiology [facility] [address] [place] [address] 01/15/2024 10:20 AM EDT Office Visit Nephrology, [facility] [address] [place] [address] Colleen Acosta MD [address] [place] [address] 01/30/2024 8:30 AM EDT Nurse Only Ancillary [facility] [address] [place] [id number] [place], Nurse Annual Wellness [facility] [address] [place] [address] 10/21/2024 10:45 AM EDT Office Visit Dermatology [facility] [address] [place] [address] Orestes Slaughter MD [address] [place] [address] Scheduled Orders Name Type Priority Associated Diagnoses Orde r Schedule SLEEP STUDY, W/O CPAP Procedures Routine Obstructive sleep apnea History of weight loss HTN, goal below 130/80 Episodic tension-type headache, not intractable Ordered: 11/04/2023 SLEEP STUDY, W/ CPAP (TREATMENT SETTINGS) Procedures Routine Obstructive sleep apnea History of weight loss HTN, goal below 130/80 Episodic tension-type headache, not intractable Ordered: 11/04/2023 Scheduled Procedures Name Priority Associated Diagnoses Date/Ti [...] Additional history exists CKD PHOS USE SMARTSET 60614 03/04/202402/16, 07/15/2022, 12/18/2020, Additional history exists GFR 04/09/2024 10/08/2023, 040 06/2023, 01/27/2023, Additional history exists Albumin/Creatinine Ratio 08/18/2024 024, 07/15/2022, 05/08/2022, Additional history exists CKD HGB USE SMARTSET 79671 08/18/202408/18, 07/15/2022, 11/20/2021, Additional history exists TSH 08/18/2024 08/19/2023, 09/17, 07/31/2022, Additional history exists Diabetic Foot Exam 09/30/2024 10/01/2023, 0 07/24/2022, 11/06/2020, Additional history exists DXA Scan 11/28/2028 11/29/2019, 01/18, 02/08/2013, Additional history exists Pneumococcal Vaccine: 65+ Years Completed 11/16/2015, 08/11/2013, 12/22/2005 Zoster Vaccines Completed 04/30/2019, 07/0 12/2018, 01/16/2011 Influenza Vaccine (FLU shot) Completed [...] as of this encounter Visit Diagnoses Diagnosis Obstructive sleep apnea- Primary Obstructive sleep apnea (adult) (pediatric) History of weight loss HTN, goal below 130/80 Unspecified essential hypertension Episodic tension-type headache, not intractable Episodic tension type headache documented in this encounter Care Teams Piano Instructor Relationship Specialty Start Date End Date Hi Mcdaniels MD [address] [place] [address] PCP - General Family Medicine 10/26/21 documented as of this encounter
--- OUTSIDE RECORDS SUMMARY | 2023-11-24 22:16 | External Medical Summary | Summary of Care ---
Author Name Unknown Organization [facility] Address [address] [place] [address] Phone [phone] Care Team Providers Care Film And Video Graphics Designer Name Role Phone Hi Mcdaniels MD Primary Care Provider [phone] Reason for Referral * Evaluate & Treat - Unlimited Visits (Within 10 days (routine)) - Pending Review Specialty Diagnoses / Procedures Referred By Contact Referred To Contact Cardiovascular Medicine / Cardiology Diagnoses Dyspnea on exertion Hi Mcdaniels MD [address] [place] [address] Referral ID Status Reason Start Date Expiration Date Visits Requested Visits Authorized [id number] Pending Review Specialty Services Required 08/12/[phone] Question Answer Referral Priority Within 10 days (routine) Where should this appointment be scheduled? [facility] To which of the following clinics are you referring your patient? General Cardiology Clinic Reason for Visit * Reason Onset Date Comments Hospital Follow-Up Pt here with daughter for hospital follow up Hospital Follow-Up 08/12/2023 Encounter Details Date Type Department Care Team (Late st Contact Info) Description 08/12/2023 11:00 AM EDT Office Visit Family [facility] [address] [place] [address] Hi Mcdaniels MD [address] [place] [address] Hospital discharge follow-up*; Type 2 diabetes mellitus with stage 3b chronic kidney disease, with long-term current use of insulin ([facility]); Type 2 diabetes mellitus with hemoglobin A1c goal of less than 8.0% ([facility]); Mild cognitive impairment; Depression with anxiety; HTN, goal below 130/80; VIRGIL (obstructive sleep apnea); Dyspnea on exertion Allergies Active Allergy Reactions Criticality Noted Date Comments Adhesive Tape 03/04/2021 Other reaction(s): SKIN IRRITATIONS Atorvastatin 07/03/2017 Bad dreams Nitrofurantoin Low 08/13/2021 Other reaction(s): Gastrointestinal Upset, GI Upset Nitrofurantoin Monohydrate Macrocrystals 06/10/1997 GI sens. documented as of this encounter (statuses as of 08/12/2023) Medications Medication Sig Dispensed Refills Start Date End Date Status Multiple Vitamins-Mineral s (SENIOR MULTIVITAMIN PLUS) Tab Take 1 Tab by mouth every other day. 0 Active CPAP every night at bedtime . 0 Active Diclofenac Sodium 1 % External Gel (Voltaren)Indica tions:Quadriceps strain, left, subsequent encounter APPLY TOPICALLY TO AFFECTED AREA 2 TIMES A DAY. APPLY TO KNEES 200 g 3 08/24/19 22 Active OneTouch Verio w/Device KitIndications:T ype 2 diabetes mellitus with hemoglobin A1c goal of less than 8.0% ([facility]) Use up to 3 times a day E11.9 1 Kit 0 03/11/20 22 Active Glucose Blood In Vitro Strip Use up to 4 times daily to test blood sugar Dx: E11.9 100 Strip 11 03/18/20 22 Active Fluticasone Propionate 50 MCG/ACT Nasal SuspensionIndica tions:Viral URI with cough,Post-nasal drip Administer 2 Sprays into each nostril in the morning. 1 Each 1 04/02/20 22 Active Insulin Syringe 30G X 1/2" 0.5 MLIndications:DM type 2, not at goal ([facility]) Use as directed to administer insulin up to four times daily. Dx code E11.9 100 Each 3 12/06/19 23 Active Citalopram Hydrobromide 40 MG Oral Tablet (CeleXA)Indicati ons:Recurrent major depressive disorder, in full remission ([facility]) TAKE 1 TABLET BY MOUTH EVERY DAY IN THE MORNING 90 Tablet 3 04/08/20 23 Active Gabapentin 100 MG Oral Capsule (Neurontin)Indic ations:New onset of headaches after age 50 TAKE 2 CAPSULES TWICE DAILY 120 Capsule 5 04/08/20 23 Active Levothyroxine Sodium 100 MCG Oral Tablet (Levoxyl)Indicat ions:Hypothyroid ism due to acquired atrophy of thyroid TAKE 1 TABLET BY MOUTH EVERY DAY AT LEAST 30 MIN BEFORE BREAKFAST OR OTHER MEDICATION 90 Tablet 3 04/08/20 23 Active buPROPion HCl ER (XL) 150 MG Oral Tablet Extended Release 24 Hour (Wellbutrin XL) TAKE 1 TABLET (150 MG) BY MOUTH IN THE MORNING. 90 Tablet 3 04/08/20 23 Active hydroCHLOROthiaz marielena 25 MG Oral Tablet (Hydrodiuril)Ind ications:Essenti al (primary) hypertension TAKE 1 TABLET BY MOUTH EVERY DAY IN THE MORNING 90 Tablet 3 04/08/20 23 Active BD Insulin Syringe U/F 30G X 1/2" 0.3 ML (Insulin Syringe-Needle U-100)Indication s:DM type 2, not at goal (HCC) USE DIRECTED TO ADMINISTER INSULIN UP TO FOUR TIMES DAILY. DX CODE E11.9 400 Each 3 05/22/19 24 Active OneTouch Ultra In Vitro Strip (Glucose Blood) USE UP TO 4 TIMES A DAY TO TEST BLOOD SUGAR DX: E11.9 100 Strip 06/07/19 Active Proventil HFA 108 (90 Base) MCG/ACT Inhalation Aerosol SolutionIndicati ons:Viral URI with cough,Bronchitis , complicated Inhale 2 Puffs by mouth every 4 hours as needed for Congestion or Wheezing. 18 g 1 07/30/19 24 Active Aspirin 81 MG Oral Tablet Delayed Release (SB Low Dose ASA EC) Take 1 Tablet by mouth in the morning. 0 Active Vitamin D3 25 MCG Oral Tablet (Cholecalciferol ) Take 1 Tablet by mouth in the morning. 90 Tablet 3 08/12/19 24 Active Rosuvastatin Calcium 10 MG Oral Tablet (Crestor) Take 1 Tablet by mouth in the morning. 90 Tablet 3 08/12/19 24 Active Metoprolol Succinate ER 25 MG Oral Tablet Extended Release 24 Hour (toPROL XL) Take 0.5 Tablets by mouth in the morning. 60 Tablet 3 08/12/19 24 Active Vitamin D3 25 MCG Oral Tablet Take 1 Tablet by mouth in the morning. 30 Tablet 0 08/15/19 23 024 Discontinued Cyanocobalamin 1000 MCG Oral Tablet (Cyanocobalamin) Take 1 Tablet by mouth in the morning. 30 Tablet 0 08/15/19 23 024 Discontinued Metoprolol Succinate ER 25 MG Oral Tablet Extended Release 24 Hour (toPROL XL) Take 0.5 Tablets by mouth in the morning. 0 08/04/19 24 024 Discontinued(Re fill) Rosuvastatin Calcium 10 MG Oral Tablet (Crestor) Take 1 Tablet by mouth in the morning. 0 08/04/19 24 024 Discontinued(Re fill) Lantus 100 UNIT/ML Subcutaneous Solution INJECT 30 UNITS SUBCUTANEOUSLY AT BEDTIME 0 07/14/19 24 024 Discontinued documented as of this encounter (statuses as of 08/12/2023) Active Problems Problem Noted Date Diagnosed Date [...] as of this encounter (statuses as of 08/12/2023) Resolved Problems Problem Noted Date Diagnosed Date [...] as of this encounter (statuses as of 08/12/2023) Immunizations Name Administration Dates Next Due COVID-19 mRNA, LNP-s, No Pre serve, 2-Dose Series ([facility] IMS) 02/16/2021,08/05/2020,07/15/2020 Covid-19, Mrna, Lnp-s, Pf, B ivalent, [...] Sign Reading Time Taken Comments Blood Pressure 130/76 08/12/2023 10:01 AM EDT Pulse 60 08/12/2023 10:01 AM EDT Temperature 36.4 C (97.6 F) 08/12/2023 10:01 AM E DT Respiratory Rate 18 08/12/2023 10:01 AM EDT Oxygen Saturation 99% 08/12/2023 10:01 AM EDT Inhaled Oxygen Concentration - - Weight 93 kg (205 lb) 08/12/2023 10:01 AM EDT Height 152.4 cm (5') 08/12/2023 10:01 AM EDT Body Mass Index 40.04 08/12/2023 10:01 AM EDT documented in this encounter Patient Instructions * Patient Instructions* Hi Mcdaniels MD - 08/12/2023 10:10 AM EDT Taking Medicine Safely Medicine is given to help treat or prevent illness. But if you don't take it correctly, it might not help. It might even harm you. Your doctor or pharmacist can help you learn the right way to take your medicine. Listed below are some tips to help you take medicine safely. Safety Tips Have a routine for taking each medicine. Make it part of something you do each day, such as brushing your teeth or eating a meal. When you go to the hospital or your doctor's office, bring all your current medicines in their original boxes or bottles. If you can't do that, bring an up-to-date list of your medicines. Do not stop taking a prescription medicine unless your doctor tells you to. Doing so could make your condition worse. Do not share medicines. Let your doctor and pharmacist know of any allergies you have. Taking prescription medicines with alcohol, street drugs, herbs, supplements, or even some hwey-dhf-wfoytij medicines can be harmful. Talk to your doctor or pharmacist before using any of these things while taking a prescription medicine. When filling your prescriptions, try using the same pharmacy for all your medicines. If not, let the pharmacist know what medicines you are already on. Keep medicines out of the reach of children and pets. Do not use medicine that has or that doesn't look or smell right. Get rid of it properly. To find out the right way to get rid of medicine: Call your [facility] or [facility] government's household trash and recycling service and ask if a drug take-back program is available in your community. Call your local pharmacy and ask the right way to get rid of the medicine. Go to http://www.fda.gov/ForConsumers/ConsumerUpdates/ohj824991 to learn how to get rid of medicines safely. Using Generic Medicines Medicines have brand names and generic (chemical) names. When a medicine is first made, it is sold only under its brand name. Later, it can be made and sold as a generic. Generic medicines cost less than brand-name medicines and most work just as well. Most people can use the generic medicine instead of the brand-name medicine, unless their doctor says otherwise. 3455-2828 [employer] [facility], [address] [place] [address], [place] [address]. All rights reserved. This information is not intended as a substitute for professional medical care. Always follow your healthcare professional's instructions. Coping with Your Diagnosis of a Chronic Health Condition If you have a chronic health condition, you have a problem that may not go away over time. Heart disease, asthma, arthritis, and diabetes are just a few of the chronic conditions that exist. Right now, these conditions have no known cure. But you can take an active role in managing your health. Coping with Your Diagnosis If you've just learned about your health condition, you may be angry, depressed, or afraid. Or you might feel relieved just to know what's wrong. Even if you've known about your health problem for a while, adjusting to it can be hard. But learning about your condition can help you cope. Look for books at your local library. If you have access to a computer, check the Internet. Or contact a group that focuses on your specific problem. Accepting Change Change is hard for most people. Yet right now you may be facing many changes. What you eat or the way you work may change. Your moods, and even your symptoms, might vary from day to day. Although it isn't easy, learning to accept change can help you feel more in control. Taking Control Feeling you have control can make living with your condition easier. Discuss treatment options withyour health care provider. The more you know, the more active you can be in your care. Moving Forward You may wonder whether you will be able to do the things you've always done. That depends on your age, the condition you have, and your goals. To make the most of each day, try to build caring relationships, be active, and eat right. Also, do your best to keep a sense of humor. 3570-3525 [facility], [address] [place] [address], [place] [address]. All rights reserved. This information is not intended as a substitute for professional medical care. Always follow your healthcare professional's instructions. Taking an Active Role in Your Medicines Take the time to learn about your medicine. For instance, why are you taking it? What does it do? Work with your doctor or other health care providers to get the answers you need. Talk to your pharmacist about how to take each medicine, and ask for a fact sheet on each one. Ask Questions About Your Medicine What is the name of the medicine? Why do I need to take it? When should I take it? How should I take it: with water? with food? on an empty stomach? How much do I take? What do I do if I miss a dose? What side effects could it cause and which ones should I call the doctor about? Are there any foods or medicines I should avoid while taking this medicine? Keeping track of your medications? Name of medicine: Taken for: Dose: Time(s) to take it: Take an Active Role Fill all your prescriptions at the same pharmacy. This keeps your medicine history in one place. Talk to the pharmacist. Make sure you understand how to take each medicine. Ask for a fact sheet about each one. Tell your doctor and pharmacist about all the prescription and obfx-azb-gfipizt medicines you take.This includes vitamins and herbal remedies. Tell your doctor and pharmacist if you have any medical conditions or allergies to any medicine or food, or if you are or . Keep a list of all your medicines. Use the sample to the right as a guide for the type of information needed. 0905-4768 [place] [address]. All rights reserved. This information is not intended as a substitute for professional medical care. Always follow your healthcare professional's instructions. documented in this encounter Progress Notes * Hi Mcdaniels MD - 08/12/2023 10:10 AM EDT SUBJECTIVE: Joanna Gann is a 78 year old female. Chief Complaint Patient presents with Hospital Follow-Up Pt here with daughter for hospital follow up Hospital Follow-Up Recent Admission: Patient was recently admitted to [facility]. Discharge report received and reviewed. HPI: Admitted to [facility] with confusion and UTI. Was found to have mildly elevated troponin. Cardiology consulted. She remains at her baseline level of confusion. Fortunately her daughter recently moved in with her and is able to help with her medications. There has been a lot of confusion about her medication in general. Patient has mild dementia that may be progressing. Patient and daughtersaw pharmacist today. Metformin added and we will recheck her renal function in a week to ensure that it remains stable. All questions answered. Patient Active Problem List Diagnosis Code DDD (degenerative disc disease), cervical M50.30 Vitamin D deficiency E55.9 Dyslipidemia E78.5 Morbid obesity (HCC) E66.01 VIRGIL (obstructive sleep apnea) G47.33 Hypothyroidism due to acquired atrophy of thyroid E03.4 HTN, goal below 130/80 I10 Stage 3b chronic kidney disease ([facility]) N18.32 Type 2 diabetes mellitus with hemoglobin A1c goal of less than 8.0% ([facility]) E11.9 Type 2 diabetes mellitus with stage 3b chronic kidney disease, with long-term current use of insulin ([facility]) E11.22, N18.32, Z79.4 DDD (degenerative disc disease), lumbar M51.36 Meningiomas, multiple ([facility]) D42.9 Mixed stress and urge urinary incontinence N39.46 Depression with anxiety F41.8 Episodic tension-type headache, not intractable G44.219 Mild cognitive impairment G31.84 Current Outpatient Medications Medication Sig Dispense Refill Multiple Vitamins-Minerals (SENIOR MULTIVITAMIN PLUS) Tab Take 1 Tab by mouth every other day. Diclofenac Sodium 1 % External Gel (Voltaren) APPLY TOPICALLY TO AFFECTED AREA 2 TIMES A DAY. APPLYTO KNEES 200 g 3 Fluticasone Propionate 50 MCG/ACT Nasal Suspension [...] TABLET BY MOUTH EVERY DAY IN THE [id number] Tablet 3 Proventil HFA 108 (90 Base) MCG/ACT Inhalation Aerosol Solution Inhale 2 Puffs by mouth every 4 hours as needed for Congestion or Wheezing. 18 g 1 Aspirin 81 MG Oral Tablet Delayed Release (SB Low Dose ASA EC) Take 1 Tablet by mouth in the morning. Vitamin D3 25 MCG Oral Tablet (Cholecalciferol) Take 1 Tablet by mouth in the morning. 90 Tablet 3 Rosuvastatin Calcium 10 MG Oral Tablet (Crestor) Take 1 Tablet by mouth in the morning. 90 Tablet 3 Metoprolol Succinate ER 25 MG Oral Tablet Extended Release 24 Hour (toPROL XL) Take 0.5 Tablets by mouth in the morning. 60 Tablet 3 CPAP every night at bedtime . OneTouch Verio w/Device Kit Use up to 3 times a day E11.9 1 Kit 0 Glucose Blood In Vitro Strip Use up [...] TEST BLOOD SUGAR DX: E11.9100 Strip 5 metFORMIN HCl ER 500 MG Oral Tablet Extended Release 24 Hour (Glucophage XR) Take 1 Tablet by mouthin the morning. 30 Tablet 3 No current facility-administered medications for this visit. Current and discharge medications have been reconciled. Review of patient's allergies indicates: Allergen Reactions Adhesive Tape Other reaction(s): SKIN IRRITATIONS Lipitor [Atorvastatin] Bad dreams Nitrofurantoin Monohydrate Macrocrystals GI sens. Nitrofurantoin Other reaction(s): Gastrointestinal Upset, GI Upset OBJECTIVE: BP 130/76 | Pulse 60 | Temp 36.4 C (97.6 F) (Tympanic) | Resp 18 | Ht 1.524 m (5') | Wt 93 kg (205 lb) | SpO2 99% | BMI 40.04 kg/m | BSA 1.98 m PHYSICAL EXAM: General: alert, healthy, and no distress Head: Normocephalic, No masses, lesions, tenderness or abnormalities Heart: regular rate & rhythm, no murmur, and no gallops Lungs: chest symmetric with normal AP diameter, no chest deformities noted, no chest wall tenderness, lungs clear to auscultation Extremities: less than 2 second capillary refill, no joint deformities, effusion, or inflammation Neuro Exam: alert & oriented x 3 with fluent speech, no focal motor/sensory deficits, gait normal, reflexes normal and symmetric Skin: skin color, texture, turgor are normal, no rashes or significant lesions ASSESSMENT: Hospital discharge follow-up (Primary) - DISCH [facility] RECON CUR MED LIS Type 2 diabetes mellitus with stage 3b chronic kidney disease, with long-term current use of insulin (HCC) - HEMOGLOBIN A1C; Future; Expected date: 08/12/2023 Type 2 diabetes mellitus with hemoglobin A1c goal of less than 8.0% (HCC) Mild cognitive impairment Depression with anxiety HTN, goal below 130/80 VIRGIL (obstructive sleep apnea) Dyspnea on exertion - CARDIOLOGY REFERRAL OP Other orders - Vitamin D3 25 MCG Oral Tablet (Cholecalciferol); Take 1 Tablet by mouth in the morning. - Rosuvastatin Calcium 10 MG Oral Tablet (Crestor); Take 1 Tablet by mouth in the morning. - Metoprolol Succinate ER 25 MG Oral Tablet Extended Release 24 Hour (toPROL XL); Take 0.5 Tablets by mouth in the morning. PLAN: Continue present medication(s): Follow up as needed. I spent a total of 10-19 minutes (exact time 19 mins) minutes on the date of service in preparation, delivery, and documentation of the care provided to Joanna Gann excluding any time spentin performance of separately billed services. Hi Mcdaniels MD documented in this encounter Nursing Notes * Radha Cooney LPN - 08/12/2023 10:01 AM EDT The patient has been properly identified by confirmation of name and date of . Chief Complaint Patient presents with Hospital Follow-Up Pt here with daughter for hospital follow up documented in this encounter Plan of Treatment Upcoming Encounters Date Type Department Care Team (Late st Contact Info) Description 09/29/2023 9:45 AM EDT Office Visit Dermatology [facility] [place] [address] [place] [address] Orestes Slaughter MD [address] [place] [address] 10/01/2023 9:30 AM EDT Office Visit Pharmacy, [address] [place] [address] [place] [facility] [address] [place] [address] 11/18/2023 10:20 AM EDT Office Visit Family Practice [facility] [address] [place] [address] Hi Mcdaniels MD [address] [place] [address] 12/02/2023 2:00 PM EDT Telemedicine Neurosurgery, [place] [address] [place], [place] [id number] Zackary Nash MD [address] [place], [place] [id number] 01/15/2024 10:20 AM EDT Office Visit Nephrology, [facility] [address] [facility] [address] Colleen Acosta MD [address] [place] [address] 01/30/2024 8:30 AM EDT Nurse Only Ancillary [facility] [address] [facility] [address] [place], Nurse [facility] [address] [place] [address] Scheduled Orders Name Type Priority Associated Diagnoses Orde r Schedule HEMOGLOBIN A1C Lab Routine Type 2 diabetes mellitus with stage 3b chronic kidney disease, with long-term current use of insulin (HCC) Expected: 08/12/2023 (Approximate), Expires: 08/11/2024 Scheduled Procedures Name Priority Associated Diagnoses Date/Ti me COLONOSCOPY FLEXIBLE PROXIMAL DIAGNOSTIC Recall History of colon polyps Scheduled Referrals Name Type Priority Associated Diagnoses Orde r Schedule CARDIOLOGY REFERRAL OP Referral Within 10 days (routine) Dyspnea on exertion Ordered: 08/12/2023 Health Maintenance Due Date Last Done Comments DTaP,Tdap,and Td Vaccines (2 - Td or Tdap) 04/19/2021 04/19/2011, 04/04/2003 COLONOSCOPY-EVERY 3 YRS AGES 18-100 11/03/2021 11/03/2018, 04/19/2008 Albumin/Creatinine Ratio 07/15/2023 023, 05/08/2022, 12/18/2020, Additional history exists CKD HGB USE SMARTSET 24076 07/15/202307/15, 11/20/2021, 11/16/2021, Additional history exists Diabetic Foot Exam 07/25/2023 07/24/2022, 0 11/06/2020, 11/25/2019, Additional history exists GFR 07/28/2023 01/27/2023, 06/20, 05/08/2022, Additional history exists HbA1c 08/19/2023 02/17/2023, 09/17, 07/15/2022, Additional history exists TSH 10/10/2023 10/09/2022, 07/17, 06/13/2021, Additional history exists Depression Screening 01/28/2024 01/27/2023 Diabetic Eye Exam 02/22/2024 02/21/2023, , 02/05/2021, Additional history exists CKD PHOS USE SMARTSET 06686 03/04/202402/16, 07/15/2022, 12/18/2020, Additional history exists DXA [...] as of this encounter Visit Diagnoses Diagnosis Hospital discharge follow-up- Primary Other follow-up examination Type 2 diabetes mellitus with stage 3b chronic kidney disease, with long-term current use of insulin (HCC) Type 2 diabetes mellitus with hemoglobin A1c goal of less than 8.0% (HCC) Mild cognitive impairment Mild cognitive impairment, so stated Depression with anxiety Dysthymic disorder HTN, goal below 130/80 Unspecified essential hypertension VIRGIL (obstructive sleep apnea) Obstructive sleep apnea (adult) (pediatric) Dyspnea on exertion Other dyspnea and respiratory abnormality documented in this encounter Care Teams Film And Video Graphics Designer Relationship Specialty Start Date End Date Hi Mcdaniels MD [address] [place] [id number] PCP - General Family Medicine 10/26/21 documented as of this encounter
--- OUTSIDE RECORDS SUMMARY | 2023-11-24 22:16 | External Medical Summary | Summary of Care ---
Author Name Unknown Organization [facility] Address [address] [place] [address] Phone [phone] Care Team Providers Care Bar Tacker Sewing Machine Name Role Phone Hi Mcdaniels MD Primary Care Provider [phone] Reason for Visit * Reason Onset Date Comments Hospital Follow-Up 08/05/2023 [facility] 08/03 Encounter Details Date Type Department Care Team (Late st Contact Info) Description 08/05/2023 Telephone Ancillary [facility] [address] [place] [address] Lali Juarez, RN Hospital Follow-Up ([facility] 08/03) Allergies Active Allergy Reactions Criticality Noted Date Comments Adhesive Tape 03/04/2021 Other reaction(s): SKIN IRRITATIONS Atorvastatin 07/03/2017 Bad dreams Nitrofurantoin Low 08/13/2021 Other reaction(s): Gastrointestinal Upset, GI Upset Nitrofurantoin Monohydrate Macrocrystals 06/10/1997 GI sens. documented as of this encounter (statuses as of 08/06/2023) Medications Medication Sig Dispensed Refills Start Date [...] the morning. 1 Each 1 2 Active Vitamin D3 25 MCG [...] disease, with long-term current use of insulin ([facility]) INJECT 30 UNITS SUBCUTANEOUSLY AT BEDTIME 30 mL 5 3 Active BD Insulin Syringe U/F 30G X 1/2" 0.3 ML (Insulin Syringe-Needle U-100)Indications :DM type 2, not at goal ([facility]) USE DIRECTED TO ADMINISTER INSULIN UP TO FOUR TIMES DAILY. DX CODE E11.9 400 Each 3 4 Active OneTouch Ultra In Vitro Strip (Glucose Blood) USE UP TO 4 TIMES A DAY TO TEST BLOOD SUGAR DX: E11.9 100 Strip 5 4 Active Proventil HFA 108 (90 Base) MCG/ACT Inhalation Aerosol SolutionIndicatio ns:Viral URI with cough,Bronchitis, complicated Inhale 2 Puffs by mouth every 4 hours as needed for Congestion or Wheezing. 18 g 1 4 Active Metoprolol Succinate ER 25 MG Oral Tablet Extended Release 24 Hour (toPROL XL) Take 0.5 Tablets by mouth in the morning. 0 4 Active Rosuvastatin Calcium 10 MG Oral Tablet (Crestor) Take 1 Tablet by mouth in the morning. 0 4 Active Aspirin 81 MG Oral Tablet Delayed Release (SB Low Dose ASA EC) Take 1 Tablet by mouth in the morning. 0 Active Amoxicillin-Pot Clavulanate 875-125 MG Oral Tablet (Augmentin)Indica tions:Acute non-recurrent maxillary sinusitis Take 1 Tablet by mouth in the morning and 1 Tablet before bedtime. Do all this for 10 days. 20 Tablet 0 4 08/05/19 24 Discontinu ed(Medicat ion List Clean Up) Lovastatin 40 MG Oral Tablet TAKE 1 TABLET BY MOUTH EVERYDAY AT BEDTIME 90 Tablet 0 4 08/05/19 24 Discontinu ed(Medicat ion List Clean Up) documented as of this encounter (statuses as of 08/06/2023) Active Problems Problem Noted Date Diagnosed Date [...] as of this encounter (statuses as of 08/06/2023) Resolved Problems Problem Noted Date Diagnosed Date [...] as of this encounter (statuses as of 08/06/2023) Immunizations Name Administration Dates Next Due COVID-19 mRNA, LNP-s, No Pre serve, 2-Dose Series ([employer]) 02/16/2021,08/05/2020,07/15/2020 Covid-19, Mrna, Lnp-s, Pf, B ivalent, [...] encounter Miscellaneous Notes * Telephone Encounter - Lali Juarez RN - 08/06/2023 1:19 PM EDT Transitions of Care Note Reason for Referral:Recent Admission Phone visit for follow up: RUSSELL # 2 Admitted to: [facility], Date: 07/30 Discharged to: home, Date: 08/03 Diagnosis driving hospitalization: Diabetic ketoacidosis Poorly controlled diabetes mellitus Chest pain Message left on voicemail including date/time of hospital follow up appt. * Telephone Encounter - Lali Juarez RN - 08/05/2023 12:56 PM EDT Transitions of Care Note Reason for Referral:Recent Admission Phone visit for follow up: RUSSELL # 1 Admitted to: [facility], Date: 07/30 Discharged to: home, Date: 08/03 Diagnosis driving hospitalization: Diabetic ketoacidosis Poorly controlled diabetes mellitus Chest pain Message left on voicemail. If she reaches the call center she can be transferred to mt at [phone]. Thank you documented in this encounter Plan of Treatment Upcoming Encounters Date Type Department Care Team (Late st Contact Info) Description 08/12/2023 9:30 AM EDT Office Visit Pharmacy, [facility] [address] [place] [address] [facility] [address] [place] [address] 08/12/2023 11:00 AM EDT Office Visit Family Practice [facility] [address] [place] [address] Hi Mcdaniels MD [address] [place] [address] 09/29/2023 9:45 AM EDT Office Visit Dermatology [facility] [address] [facility] [place] [address] Orestes Slaughter MD [address] [facility] [place], [place] [address] 12/02/2023 2:00 PM EDT Telemedicine Neurosurgery, [place] [address] [place] [address] Zackary Nash MD [address] [place], [place] [id number] 01/15/2024 10:20 AM EDT Office Visit Nephrology, [facility] [address] [facility] [place], [place] [address] Colleen Acosta MD [address] [facility] [place], [place] [address] 01/30/2024 8:30 AM EDT Nurse Only Ancillary [facility] [address] [place] [address] [facility], [facility] Annual Wellness [facility] [address] [facility] [address] Scheduled Procedures Name Priority Associated Diagnoses Date/Ti me COLONOSCOPY FLEXIBLE PROXIMAL DIAGNOSTIC Recall History of colon polyps Health Maintenance Due Date Last Done Comments DTaP,Tdap,and Td Vaccines (2 - Td or Tdap) 04/19/2021 04/19/2011, 04/04/2003 COLONOSCOPY-EVERY 3 YRS AGES 18-100 11/03/2021 11/03/2018, 04/19/2008 Albumin/Creatinine Ratio 07/15/2023 023, 05/08/2022, 12/18/2020, Additional history exists CKD HGB USE SMARTSET 02644 07/15/202307/15, 11/20/2021, 11/16/2021, Additional history exists Diabetic Foot Exam 07/25/2023 07/24/2022, 0 11/06/2020, 11/25/2019, Additional history exists GFR 07/28/2023 01/27/2023, 06/20, 05/08/2022, Additional history exists HbA1c 08/19/2023 02/17/2023, 09/17, 07/15/2022, Additional history exists TSH 10/10/2023 10/09/2022, 07/17, 06/13/2021, Additional history exists Depression Screening 01/28/2024 01/27/2023 Diabetic Eye Exam 02/22/2024 02/21/2023, , 02/05/2021, Additional history exists CKD PHOS USE SMARTSET 28810 03/04/202402/16, 07/15/2022, 12/18/2020, Additional history exists DXA [...] filedocumented as of this encounter Care Teams Bar Tacker Sewing Machine Relationship Specialty Start Date End Date Hi Mcdaniels MD [address] [place] [address] PCP - General Family Medicine 10/26/21 documented as of this encounter
--- OUTSIDE RECORDS SUMMARY | 2023-11-24 22:16 | External Medical Summary | Summary of Care ---
Author Name Unknown Organization [facility] Address [address] [facility] [place] [address] Phone [phone] Care Team Providers Care Soil Analyst Name Role Phone Hi Mcdaniels MD Primary Care Provider [phone] Encounter Details Date Type Department Care Team (Late st Contact Info) Description 08/03/2023 Result Scan Unspecified Department Ray Vega, DO [address] [place] [address] <No scans attached> Allergies Active Allergy Reactions Criticality Noted Date Comments Adhesive Tape 03/04/2021 Other reaction(s): SKIN IRRITATIONS Atorvastatin 07/03/2017 Bad dreams Nitrofurantoin Low 08/13/2021 Other reaction(s): Gastrointestinal Upset, GI Upset Nitrofurantoin Monohydrate Macrocrystals 06/10/1997 GI sens. documented as of this encounter (statuses as of 08/07/2023) Medications Medication Sig Dispensed Refills Start Date [...] hemoglobin A1c goal of less than 8.0% ([facility]) Use up to 3 times a day E11.9 1 Kit 0 03/11/2022 Active Glucose Blood In Vitro Strip Use up to 4 times daily to test blood sugar Dx: E11.9 100 Strip 11 03/18/2022 Active Fluticasone Propionate 50 MCG/ACT Nasal SuspensionIndicati ons:Viral URI with cough,Post-nasal drip Administer 2 Sprays into each nostril in the morning. 1 Each 1 04/02/2022 Active Vitamin D3 25 MCG Oral Tablet Take 1 Tablet by mouth in the morning. 30 Tablet 0 08/14/2022 Active Cyanocobalamin 1000 MCG Oral Tablet (Cyanocobalamin) Take 1 Tablet by mouth in the morning. 30 Tablet 0 08/14/2022 Active Insulin Syringe 30G X 1/2" 0.5 MLIndications:DM type 2, not at goal ([facility]) Use as directed to administer insulin up to four times daily. Dx code E11.9 100 Each 3 12/05/2022 Active Citalopram Hydrobromide 40 MG Oral Tablet (CeleXA)Indication s:Recurrent major depressive disorder, in full remission ([facility]) TAKE 1 TABLET BY MOUTH EVERY DAY [...] hemoglobin A1c goal of less than 8.0% ([facility]),Type 2 diabetes mellitus with stage 3b chronic kidney disease, with long-term current use of insulin ([facility]) INJECT 30 UNITS SUBCUTANEOUSLY AT BEDTIME 30 mL 5 05/01/2023 Active BD Insulin Syringe U/F 30G X 1/2" 0.3 ML (Insulin Syringe-Needle U-100)Indications: DM type 2, not at goal ([facility]) USE DIRECTED TO ADMINISTER INSULIN UP TO FOUR TIMES DAILY. DX CODE E11.9 400 Each 3 05/22/2023 Active OneTouch Ultra In Vitro Strip (Glucose Blood) USE UP TO 4 TIMES A DAY TO TEST BLOOD SUGAR DX: E11.9 100 Strip 5 06/07/2023 Active Proventil HFA 108 (90 Base) MCG/ACT Inhalation Aerosol SolutionIndication s:Viral URI with cough,Bronchitis, complicated Inhale 2 Puffs by mouth every 4 hours as needed for Congestion or Wheezing. 18 g 1 07/30/2023 Active documented as of this encounter (statuses as of 08/07/2023) Active Problems Problem Noted Date Diagnosed Date [...] as of this encounter (statuses as of 08/07/2023) Resolved Problems Problem Noted Date Diagnosed Date [...] as of this encounter (statuses as of 08/07/2023) Immunizations Name Administration Dates Next Due COVID-19 mRNA, LNP-s, No Pre serve, 2-Dose Series ([employer]) 02/16/2021,08/05/2020,07/15/2020 Covid-19, Mrna, Lnp-s, Pf, B ivalent, [...] 08/12/2023 9:30 AM EDT Office Visit Pharmacy, [facility] [address] [address] [facility] [address] [place] [address] 08/12/2023 11:00 AM EDT Office Visit Family Practice [facility] [address] [address] Hi Mcdaniels MD [address] [place] [address] 09/29/2023 9:45 AM EDT Office Visit Dermatology [facility] [address] [place] [address] Orestes Slaughter MD [address] [place] [address] 12/02/2023 2:00 PM EDT Telemedicine Neurosurgery, [place] [address] [place] [address] Zackary Nash MD [address] [place] [address] 01/15/2024 10:20 AM EDT Office Visit Nephrology, [facility] [address] [facility] [place] [address] AcostaColleen richter MD [address] [facility] [place] [address] 01/30/2024 8:30 AM EDT Nurse Only Ancillary [facility] [address] [place] [address] [facility], Nurse Annual Wellness [facility] [address] [place] [address] Scheduled Procedures Name Priority Associated Diagnoses Date/Ti me COLONOSCOPY FLEXIBLE PROXIMAL DIAGNOSTIC Recall History of colon polyps Health Maintenance Due Date Last Done Comments DTaP,Tdap,and Td Vaccines (2 - Td or Tdap) 04/19/2021 04/19/2011, 04/04/2003 COLONOSCOPY-EVERY 3 YRS AGES 18-100 11/03/2021 11/03/2018, 04/19/2008 Albumin/Creatinine Ratio 07/15/2023 023, 05/08/2022, 12/18/2020, Additional history exists CKD HGB USE SMARTSET 00969 07/15/202307/15, 11/20/2021, 11/16/2021, Additional history exists Diabetic Foot Exam 07/25/2023 07/24/2022, 0 11/06/2020, 11/25/2019, Additional history exists GFR 07/28/2023 01/27/2023, 06/20, 05/08/2022, Additional history exists HbA1c 08/19/2023 02/17/2023, 09/17, 07/15/2022, Additional history exists TSH 10/10/2023 10/09/2022, 07/17, 06/13/2021, Additional history exists Depression Screening 01/28/2024 01/27/2023 Diabetic Eye Exam 02/22/2024 02/21/2023, , 02/05/2021, Additional history exists CKD PHOS USE SMARTSET 13310 03/04/202402/16, 07/15/2022, 12/18/2020, Additional history exists DXA [...] Procedure Name Priority Date/Time Associated Diagnosis Comments ECHOCARDIOLOGY SCANNED RESULT 08/03/2023 documented in this encounter Results * ECHOCARDIOLOGY SCANNED RESULT (08/03/2023) 08/03/2023 Ray Vega DO ECHOCARDIOLOGY documented in this encounter Care Teams Soil Analyst Relationship Specialty Start Date End Date Hi Mcdaniels MD [address] [facility] [place] [address] PCP - General Family Medicine 10/26/21 documented as of this encounter
--- OUTSIDE RECORDS SUMMARY | 2023-11-24 22:16 | External Medical Summary ---
Author Name Unknown Address Unknown Organization [id number]:[facility] [facility] [address] Laboratory Report Ordering Provider Test Date Status IKEKENY 08/19/2023 09:27:22 Final Observation Date Value Abnormality Reference (Units ) Status HbA1C 08/19/2023 09:27:22 9.4 Above high normal 4. 0-5.6 (%) Final The use of HbA1c to monitor glycemic status is based on normal hemoglobin and HbA composition. This test should not be used in patients with abnormal hemoglobin that affects the half life of the red blood cell or the in vivo glycation rates. Glucose, estimated average 08/19/2023 09:27:22 223 Above high normal <126 (mg/dL) Fin al Performing Location [facility] [address] [facility] [address]
--- OUTSIDE RECORDS SUMMARY | 2023-11-24 22:16 | External Medical Summary | Summary of Care ---
Author Name Unknown Organization [facility] Address [address] [place] [address] Phone [phone] Care Team Providers Care Auto Tech Name Role Phone Hi Mcdaniels MD Primary Care Provider [phone] Reason for Visit * Reason Onset Date Comments Medication Refill 09/01/2023 Encounter Details Date Type Department Care Team (Late st Contact Info) Description 09/01/2023 Refill Family Practice [facility] [address] [facility] [place] [address] Hi Mcdaniels MD [address] [facility] [place] [address] Dyslipidemia* Allergies Active Allergy Reactions Criticality Noted Date [...] type 2, not at goal ([facility]) Use as directed to administer [...] Aerosol SolutionIndications :Viral URI with cough,Bronchitis, complicated Inhale 2 Puffs by mouth every 4 hours as needed for Congestion or Wheezing. 18 g 1 07/30/2023 Active Aspirin 81 MG Oral Tablet Delayed Release (SB Low Dose ASA EC) Take 1 Tablet by mouth in the morning. 0 Active metFORMIN HCl ER 500 MG Oral [...] the morning. 60 Tablet 3 08/12/2023 Active documented as of this encounter (statuses [...] mRNA, LNP-s, No Pre serve, 2-Dose Series ([employer]) 02/16/2021,08/05/2020,07/15/2020 Covid-19, Mrna, Lnp-s, Pf, B ivalent, 30 Mcg, IM, 12 yrs and above ([employer]) 03/12/2022 H1N1 2009 Influenza, IM 07/04/2009 Pneumococcal [...] as of this encounter Miscellaneous Notes * Addendum Note - Alee Redding LPN - 09/02/2023 8:25 AM EDTAddended by: ALEE REDDING on: 09/02/2023 08:25 AM Modules accepted: Orders * Telephone Encounter - Alee Redding LPN - 09/02/2023 8:24 AM EDT Pending Prescriptions: Disp Refills Aspirin 81 MG Oral Tablet Delayed Release*90 Tab*3 Sig: Take 1 Tablet by mouth in the morning. Last Visit: 08/12/2023 (in office), 10/09/2021 (telemedicine) Next Visit: 11/18/2023 Last date the medication was ordered: none on file Patient Active Problem List Diagnosis Code DDD (degenerative disc disease), cervical M50.30 Vitamin D deficiency E55.9 Dyslipidemia E78.5 Morbid obesity ([facility]) E66.01 VIRGIL (obstructive sleep apnea) G47.33 Hypothyroidism due to acquired atrophy of thyroid E03.4 HTN, goal below 130/80 I10 Stage 3b chronic kidney disease ([facility]) N18.32 Type 2 diabetes mellitus with hemoglobin A1c goal of less than 8.0% ([facility]) E11.9 Type 2 diabetes mellitus with stage 3b chronic kidney disease, with long-term current use of insulin ([facility]) E11.22, N18.32, Z79.4 DDD (degenerative disc disease), lumbar M51.36 Meningiomas, multiple ([facility]) D42.9 Mixed stress and urge urinary [...] - [facility] 7.2 (H) 01/29/2019 09:04 AM * Telephone Encounter - Alexandria Elmore, film archivist - 09/01/2023 11:05 AM EDT Patient calling requesting Aspirin 81 MG Oral Tablet Delayed Release (SB Low Dose ASA EC . Upon chart review, medication was last prescribed by hospital. Pt did schedule a hospital follow up visit. Please advise if you wish to continue this therapy for the patient. Thank you for your assistance Alexandria Elmore Vegetable Cutter II [facility] ([facility]) (Formerly Telepharmacy) 09/01/2023,11:05 AM documented in this encounter Plan of Treatment Upcoming Encounters Date Type Department Care Team (Late st Contact Info) Description 09/29/2023 9:45 AM EDT Office Visit Dermatology [facility] [address] [place] [address] Orestes Slaughter MD [address] [place] [address] 10/01/2023 9:30 AM EDT Office [facility], [facility] [address] [facility] [address] [facility] [place] [address] 11/18/2023 10:20 AM EDT Office Visit Family Practice [facility] [address] [place] [address] Hi Mcdaniels MD 132 [facility] [place] [address] 11/21/2023 10:30 AM EDT Imaging Radiology [facility] 132 [place] [address] 12/02/2023 2:00 PM EDT Telemedicine Neurosurgery, [place] [address] [place] [address] Zackary Nash MD [address] [place], [place] [address] 01/15/2024 10:20 AM EDT Office Visit Nephrology, [facility] [address] [place] [address] Colleen Acosta MD [address] [place] [address] 01/30/2024 8:30 AM EDT Nurse Only [facility] [address] [facility] [place] [address] [place] Nurse Annual Wellness [facility] [address] [place] [address] Scheduled Procedures Name Priority Associated Diagnoses Date/Ti [...] Additional history exists CKD PHOS USE SMARTSET 14561 03/04/202402/16, 07/15/2022, 12/18/2020, Additional history exists Albumin/Creatinine Ratio 08/18/2024 024, 07/15/2022, 05/08/2022, Additional history exists CKD HGB USE SMARTSET 36327 08/18/202408/18, 07/15/2022, 11/20/2021, Additional history exists TSH 08/18/2024 08/19/2023, 09/17, 07/31/2022, Additional history exists DXA Scan 11/28/2028 11/29/2019, 01/18, 02/08/2013, Additional history exists Pneumococcal Vaccine: 65+ Years Completed 11/16/2015, 08/11/2013, 12/22/2005 Zoster Vaccines Completed 04/30/2019, 0 12/2018, 01/16/2011 COVID-19 Vaccine Completed 04/19/2023, , [...] as of this encounter Visit Diagnoses Diagnosis Dyslipidemia- Primary Other and unspecified hyperlipidemia documented in this encounter Care Teams Auto Tech Relationship Specialty Start Date End Date Hi Mcdaniels MD [address] [facility] [place] [address] PCP - General Family Medicine 10/26/21 documented as of this encounter
--- OUTSIDE RECORDS SUMMARY | 2023-11-24 22:16 | External Medical Summary ---
Author Name Unknown Address Unknown Organization [id number]:[facility]ATORY [facility] [place] [address] [facility] [address] Laboratory Report Ordering Provider Test Date Status KENY RAMIRES 08/19/2023 09:27:22 Final Observation Date Value Abnormality Reference (Units ) Status Triglyceride 08/19/2023 09:27:22 84 <=174 ( mg/dL) Final Triglyceride Reference Range s (mg/dL):
<150 Acceptable
150-174 Borderline high
175-499 High
>=500 Very high Cholesterol 08/19/2023 09:27:22 161 <200 (mg /dL) Final Total Cholesterol Reference Ranges (mg/dL):
<200 Desirable
200-239 Borderline high
>=240 High HDL 08/19/2023 09:27:22 68 >49 (mg/dL ) Final HDL Cholesterol Reference Ra nges (mg/dL):
>=60 High (Desirable)
<50 Low (Undesirable) For Females
<40 Low (Undesirable) For Males NON-HDL CHOLESTEROL 08/19/2023 09:27:22 93 <=159 (mg/dL) Final Non-HDL Cholesterol Referenc e Range (mg/dL):
<100 Target level for high risk ASCVD patient
<130 Optimal for general population
130-159 Near optimal for general population
160-189 Borderline High
190-219 High
>=220 Very High LDL, (calculated) 08/19/2023 09:27:22 76 <= 129 (mg/dL) Final LDL Cholesterol Reference Ra nges (mg/dL):
<70 Target level for high risk ASCVD patient
<100 Optimal for general population
100-129 Near optimal for general population
130-159 Borderline high
160-189 High
>=190 Very high Performing Location [facility]ORY [facility] [place] [address] [facility] [address]
--- OUTSIDE RECORDS SUMMARY | 2023-11-24 22:16 | External Medical Summary ---
Author Name Unknown Address Unknown Organization K01:LAB[facility]ATORY [facility] [place] [address] [place] [address] Laboratory Report Ordering Provider Test Date Status RENA MACK 08/19/2023 09:27:22 Final Observation Date Value Abnormality Reference (Units ) Status MYCODE SPECIMEN-SST 08/19/2023 09:27:22 Freezing of extracted DNA, whole blood and/or serum. Final Performing Location LAB[facility]ATORY [facility] [place] - [address] [place] [address]
--- OUTSIDE RECORDS SUMMARY | 2023-11-24 22:16 | External Medical Summary ---
Author Name Unknown Address Unknown Organization [id number]:LABORATORY [facility] [place] [address] - [address] [place] [address] Laboratory Report Ordering Provider Test Date Status KENY RAMIRES 08/19/2023 09:27:22 Final Observation Date Value Abnormality Reference (Units ) Status WBC, Total 08/19/2023 09:27:22 7.91 4.00-10.8 0 (K/uL) Final RBC 08/19/2023 09:27:22 4.13 3.85-5.15 (M/uL) Final Hemoglobin 08/19/2023 09:27:22 11.4 Below low normal 12 .0-15.3 (g/dL) Final HCT 08/19/2023 09:27:22 35.4 Below low normal 36. 0-45.2 (%) Final MCV 08/19/2023 09:27:22 85.7 81.5-97.5 (fL) Final MCH 08/19/2023 09:27:22 27.6 27.0-34.0 (pg) Final MCHC 08/19/2023 09:27:22 32.2 32.0-36.0 (g/dL) Final RDW 08/19/2023 09:27:22 14.1 11.5-15.5 (%) Final Platelets 08/19/2023 09:27:22 229 140-400 (K /uL) Final MPV 08/19/2023 09:27:22 10.1 6.6-11.1 ( fL) Final Performing Location LABORATORY [facility] [place] [address] [address] - [address] [place] [address]
--- OUTSIDE RECORDS SUMMARY | 2023-11-24 22:16 | External Medical Summary ---
Author Name Unknown Address Unknown Organization K01:LABORATORY [place] [address] [facility] [address] [place] [address] Laboratory Report Ordering Provider Test Date Status ABAD RAMIRESCK 08/19/2023 09:27:22 Final Normal: <30 mg/g creatinine< br/>High: 30-300 mg/g creatinine
Very High: >300 mg/g creatinine
Nephrotic: >2200 mg/g creatinine Observation Date Value Abnormality Reference (Units ) Status Albumin, Urine 08/19/2023 09:27:22 1.28 (mg/dL) Final Creatinine, Urine 08/19/2023 09:27:22 136 (mg/dL) Final Albumin/Creatinine [Mass Ratio] in Urine 08/19/2023 09:27:22 9 <30 (mg/g Creat) Final Performing Location LAB[facility]ATORY [facility] [place] - [facility] [address] [place] [address]
--- OUTSIDE RECORDS SUMMARY | 2023-11-24 22:16 | External Medical Summary | Summary of Care ---
Author Name Unknown Organization [facility] Address [address] [place] [address] Phone [phone] Care Team Providers Care Turret Punch Press Operator Name Role Phone Hi Mcdaniels MD Primary Care Provider [phone] Reason for Visit * Reason Comments eRx-Medication Refill Encounter Details Date Type Department Care Team (Late st Contact Info) Description 08/26/2023 Refill Family Practice [facility] [address] [facility] [place] [address] Hi Mcdaniels MD [address] [facility] [place] [address] Type 2 diabetes mellitus with hemoglobin A1c goal of 7.0%-8.0% ([facility]); Type 2 diabetes mellitus with hemoglobin A1c goal of less than 8.0% ([facility]); Type 2 diabetes mellitus with stage 3b chronic kidney disease, with long-term current use of insulin ([facility]) Allergies Active Allergy Reactions Criticality Noted Date Comments Adhesive Tape 03/04/2021 Other reaction(s): SKIN IRRITATIONS Atorvastatin 07/03/2017 Bad dreams Nitrofurantoin Low 08/13/2021 Other reaction(s): Gastrointestinal Upset, GI Upset Nitrofurantoin Monohydrate Macrocrystals 06/10/1997 GI sens. documented as of this encounter (statuses as of 08/28/2023) Medications Medication Sig Dispensed Refills Start Date [...] hemoglobin A1c goal of less than 8.0% ([facility]) Use up to 3 times [...] 0.5 MLIndications:DM type 2, not at goal ([facility]) Use as directed to administer [...] as of this encounter (statuses as of 08/28/2023) Active Problems Problem Noted Date Diagnosed Date [...] as of this encounter (statuses as of 08/28/2023) Resolved Problems Problem Noted Date Diagnosed Date [...] as of this encounter (statuses as of 08/28/2023) Immunizations Name Administration Dates Next Due COVID-19 mRNA, LNP-s, No Pre serve, 2-Dose Series ([employer]) 02/16/2021,08/05/2020,07/15/2020 Covid-19, Mrna, Lnp-s, Pf, B ivalent, [...] encounter Miscellaneous Notes * Telephone Encounter - Na Hinds, formerly [facility] - 08/28/2023 6:33 AM EDT Refused Prescriptions: Disp Refills Apidra 100 UNIT/ML Injection Solution (Ins*10 mL 1 Sig: INJECT 3 UNITS SUBCUTANEOUSLY IF BS 100-150, 5 UNITS IF BS 150-200, 7 UNITS IF 200-250, 10 UNITS IF > 250 FOR SUPPERRefused By: NA HINDS for Refusal: Course of treatment complete--------- * Telephone Encounter - Na Hinds RPh - 08/28/2023 6:32 AM EDT 08/11 mt: "Diabetic Medications: DECREASE: Lantus 25 units daily START: Metformin ER 500 mg daily " documented in this encounter Plan of Treatment Upcoming Encounters Date Type Department Care Team (Late st Contact Info) Description 09/29/2023 9:45 AM EDT Office Visit Dermatology [facility] [address] [place] [address] Orestes Slaughter MD 200 [facility] [place] [address] 10/01/2023 9:30 AM EDT Office Visit Pharmacy, [facility] [address] [address] [facility] [address] [address] 11/18/2023 10:20 AM EDT Office Visit Family Practice [facility] [address] [address] Hi Mcdaniels MD [address] [place] [address] 12/02/2023 2:00 PM EDT Telemedicine Neurosurgery, [address] [address] Zackary Nash MD [address] [facility] [place] [address] 01/15/2024 10:20 AM EDT Office Visit Nephrology, [place] [address] [facility] [place] [address] Colleen Acosta MD 200 [facility] [place] [address] 01/30/2024 8:30 AM EDT Nurse Only Ancillary [facility] [address] [place] [address] [facility], Nurse Annual Wellness [facility] [address] [place] [address] Scheduled Procedures Name Priority Associated Diagnoses Date/Ti [...] Additional history exists CKD PHOS USE SMARTSET 78190 03/04/202402/16, 07/15/2022, 12/18/2020, Additional history exists Albumin/Creatinine Ratio 08/18/2024 024, 07/15/2022, 05/08/2022, Additional history exists CKD HGB USE SMARTSET 63949 08/18/202408/18, 07/15/2022, 11/20/2021, Additional history exists TSH [...] with hemoglobin A1c goal of 7.0%-8.0% (HCC) Type 2 diabetes mellitus with hemoglobin A1c goal of less than 8.0% (HCC) Type 2 diabetes mellitus with stage 3b chronic kidney disease, with long-term current use of insulin (HCC) documented in this encounter Care Teams Turret Punch Press Operator Relationship Specialty Start Date End Date Hi Mcdaniels MD [address] [facility] [place] [place] [address] PCP - General Family Medicine 10/26/21 documented as of this encounter
--- OUTSIDE RECORDS SUMMARY | 2023-11-24 22:16 | External Medical Summary ---
Author Name Unknown Address Unknown Organization [facility] [place] [address] [place] [address] Laboratory Report Ordering Provider Test Date Status KENY RAMIRES 08/19/2023 09:27:22 Final Observation Date Value Abnormality Reference (Units ) Status BUN 08/19/2023 09:27:22 28 Above high normal 6-20 (mg/dL) Final Creatinine 08/19/2023 09:27:22 1.2 Above high normal 0.5-1.0 (mg/dL) Final Glomerular filtration rate/1.73 sq M.predicted [Volume Rate/Area] in Serum, Plasma or Blood by Creatinine-based formula (CKD-EPI) 08/19/2023 09:27:22 45 Below low normal >=60 (mL/min) Final eGFR is calculated based on the CKD-EPI 2020 equation Sodium 08/19/2023 09:27:22 141 135-146 (m mol/L) Final Potassium 08/19/2023 09:27:22 3.8 3.5-5.1 (m mol/L) Final Cl 08/19/2023 09:27:22 100 98-107 (mm ol/L) Final CO2 08/19/2023 09:27:22 29 22-32 (mmo l/L) Final Anion gap 08/19/2023 09:27:22 12 7-15 (mmol /L) Final Glucose 08/19/2023 09:27:22 166 Above high normal 70 -120 (mg/dL) Final Calcium 08/19/2023 09:27:22 9.2 8.4-10.2 ( mg/dL) Final Performing Location [facility] [place] [address] [place] [address]
--- OUTSIDE RECORDS SUMMARY | 2023-11-24 22:16 | External Medical Summary | Summary of Care ---
Author Name Unknown Organization [facility] Address [address] [place] [address] Phone [phone] Care Team Providers Care Blade Sharpener Name Role Phone Hi Mcdaniels MD Primary Care Provider [phone] Reason for Visit * Reason Comments Outpatient Testing Encounter Details Date Type Department Care Team (Late st Contact Info) Description 08/19/2023 9:20 AM EDT Laboratory Laboratory, [facility] [address] [place] [id number] [facility] [address] [place] [address] [employer] Other*[id number]; Type 2 diabetes mellitus with hemoglobin A1c goal of 7.0%-8.0% ([facility]); Stage 3b chronic kidney disease ([facility]); Hypothyroidism due to acquired atrophy of thyroid; Type 2 diabetes mellitus with stage 3b chronic kidney disease, with long-term current use of insulin ([facility]) Allergies Active Allergy Reactions Criticality Noted Date Comments Adhesive Tape 03/04/2021 Other reaction(s): SKIN IRRITATIONS Atorvastatin 07/03/2017 Bad dreams Nitrofurantoin Low 08/13/2021 Other reaction(s): Gastrointestinal Upset, GI Upset Nitrofurantoin Monohydrate Macrocrystals 06/10/1997 GI sens. documented as of this encounter (statuses as of 08/19/2023) Medications Medication Sig Dispensed Refills Start Date [...] hemoglobin A1c goal of less than 8.0% ([facility]) Use up to 3 times a day [...] 0.5 MLIndications:DM type 2, not at goal ([facility]) Use as directed to administer insulin up [...] as of this encounter (statuses as of 08/19/2023) Active Problems Problem Noted Date Diagnosed Date [...] as of this encounter (statuses as of 08/19/2023) Resolved Problems Problem Noted Date Diagnosed Date [...] as of this encounter (statuses as of 08/19/2023) Immunizations Name Administration Dates Next Due COVID-19 mRNA, LNP-s, No Pre serve, 2-Dose Series ([employer]) 02/16/2021,08/05/2020,07/15/2020 Covid-19, Mrna, Lnp-s, Pf, B ivalent, 30 Mcg, IM, 12 yrs and above ([employer]) 03/12/2022 H1N1 2009 Influenza, IM 07/04/2009 Pneumococcal [...] 9:45 AM EDT Office Visit Dermatology [facility] [address] [place] [address] Orestes Slaughter MD [address] [place] [address] 10/01/2023 9:30 AM EDT Office Visit Pharmacy, [facility] [address] [place] [facility] [address] 11/18/2023 10:20 AM EDT Office Visit Family Practice [facility] [address] Hi Mcdaniels MD 132 [place] [address] 12/02/2023 2:00 PM EDT Telemedicine Neurosurgery, [place] [address] [place] [address] Zackary Nash MD [address] [place], [place] [address] 01/15/2024 10:20 AM EDT Office Visit Nephrology, [facility] 200 [place] [address] AcostaColleen richter MD 200 [place] [address] 01/30/2024 8:30 AM EDT Nurse Only Ancillary [facility] [address] [place], Nurse Annual Wellness [facility] 132 [facility] [place] [address] Pending Results Name Type Priority Associated Diagnoses Date /Time MYCODE SUBSEQUENT ADULT Lab Routine [employer] Other*[id number] 08/19/2023 9:27 AM EDT BASIC METABOLIC PANEL Lab Routine Type 2 diabetes mellitus with hemoglobin A1c goal of 7.0%-8.0% ([facility]) 08/19/2023 9:27 AM EDT HEMOGLOBIN A1C Lab Routine Type 2 diabetes mellitus with hemoglobin A1c goal of 7.0%-8.0% ([facility]) 08/19/2023 9:27 AM EDT LIPID PANEL WITH DIRECT LDL IF TG IS HIGH Lab Routine Type 2 diabetes mellitus with hemoglobin A1c goal of 7.0%-8.0% (HCC) 08/19/2023 9:27 AM EDT ALBUMIN / CREATININE RATIO, URINE Lab Routine Type 2 diabetes mellitus with hemoglobin A1c goal of 7.0%-8.0% (HCC) 08/19/2023 9:27 AM EDT CBC Lab Routine Stage 3b chronic kidney disease (HCC) 08/19/2023 9:27 AM EDT TSH WITH FREE T4 IF INDICATED Lab Routine Hypothyroidism due to acquired atrophy of thyroid 08/19/2023 9:27 AM EDT MYCODE SST1 Lab Routine [employer] Other*[id number] 08/19/2023 9:27 AM EDT MYCODE SST2 Lab Routine [employer] Other*[id number] 08/19/2023 9:27 AM EDT Scheduled Procedures Name Priority Associated Diagnoses Date/Ti me COLONOSCOPY FLEXIBLE PROXIMAL DIAGNOSTIC Recall History of colon polyps Health Maintenance Due Date Last Done Comments DTaP,Tdap,and Td Vaccines (2 - Td or Tdap) 04/19/2021 04/19/2011, 04/04/2003 COLONOSCOPY-EVERY 3 YRS AGES 18-100 11/03/2021 11/03/2018, 04/19/2008 Albumin/Creatinine Ratio 07/15/2023 023, 05/08/2022, 12/18/2020, Additional history exists CKD HGB USE SMARTSET 78511 07/15/202307/15, 11/20/2021, 11/16/2021, Additional history exists Diabetic Foot Exam 07/25/2023 07/24/2022, 0 11/06/2020, 11/25/2019, Additional history exists GFR 07/28/2023 01/27/2023, 06/20, 05/08/2022, Additional history exists HbA1c 08/19/2023 02/17/2023, 09/17, 07/15/2022, Additional history exists TSH 10/10/2023 10/09/2022, 07/17, 06/13/2021, Additional history exists Depression Screening 01/28/2024 01/27/2023 Diabetic Eye Exam 02/22/2024 02/21/2023, , 02/05/2021, Additional history exists CKD PHOS USE SMARTSET 81784 03/04/202402/16, 07/15/2022, 12/18/2020, Additional history exists DXA [...] as of this encounter Visit Diagnoses Diagnosis [employer] Other*[id number] Type 2 diabetes mellitus with hemoglobin A1c goal of 7.0%-8.0% (HCC) Stage 3b chronic kidney disease (HCC) Hypothyroidism due to acquired atrophy of thyroid Type 2 diabetes mellitus with stage 3b chronic kidney disease, with long-term current use of insulin (HCC) documented in this encounter Care Teams Blade Sharpener Relationship Specialty Start Date End Date Hi Mcdaniels MD [address] [address] PCP - General Family Medicine 10/26/21 documented as of this encounter
--- OUTSIDE RECORDS SUMMARY | 2023-11-24 22:16 | External Medical Summary | Summary of Care ---
Author Name Unknown Organization [facility] Address [address] [place] [address] Phone [phone] Care Team Providers Care Spindle Plumber Name Role Phone Hi Mcdaniels MD Primary Care Provider [phone] Reason for Visit * Reason Onset Date Comments Medication Refill 09/01/2023 Encounter Details Date Type Department Care Team (Late st Contact Info) Description 09/01/2023 Telephone Family Practice [facility] [address] [facility] [place] [address] Hi Mcdaniels MD [address] [employer] [place] [address] Medication Refill Allergies Active Allergy Reactions Criticality Noted Date Comments Adhesive Tape 03/04/2021 Other reaction(s): SKIN IRRITATIONS Atorvastatin 07/03/2017 Bad dreams Nitrofurantoin Low 08/13/2021 Other reaction(s): Gastrointestinal Upset, GI Upset Nitrofurantoin Monohydrate Macrocrystals 06/10/1997 GI sens. documented as of this encounter (statuses as of 09/01/2023) Medications Medication Sig Dispensed Refills Start Date [...] type 2, not at goal ([facility]) Use as directed to administer insulin up [...] as of this encounter (statuses as of 09/01/2023) Active Problems Problem Noted Date Diagnosed Date [...] as of this encounter (statuses as of 09/01/2023) Resolved Problems Problem Noted Date Diagnosed Date [...] as of this encounter (statuses as of 09/01/2023) Immunizations Name Administration Dates Next Due COVID-19 mRNA, LNP-s, No Pre serve, 2-Dose Series ([employer]) 02/16/2021,08/05/2020,07/15/2020 Covid-19, Mrna, Lnp-s, Pf, B ivalent, 30 Mcg, IM, 12 yrs and above ([employer]) 03/12/2022 H1N1 2009 Influenza, IM 07/04/2009 Pneumococcal [...] encounter Miscellaneous Notes * Telephone Encounter - Alexandria Elmore, sales estimator - 09/01/2023 11:05 AM EDT Patient calling requesting Aspirin 81 MG Oral Tablet Delayed Release (SB Low Dose ASA EC . Upon chart review, medication was last prescribed by hospital. Pt did schedule a hospital follow up visit. Please advise if you wish to continue this therapy for the patient. Thank you for your assistance Alexandria Elmore Mannequin Coloring Artist II [facility] ([facility] (Formerly Telepharmacy) 09/01/2023,11:05 AM documented in this encounter Plan of Treatment Upcoming Encounters Date Type Department Care Team (Late st Contact Info) Description 09/29/2023 9:45 AM EDT Office Visit Dermatology [facility] [address] [place] [address] Orestes Slaughter MD [address] [place] [address] 10/01/2023 9:30 AM EDT Office Visit Pharmacy, [facility] [address] [place] [address] [facility] 132 [facility] [place] [address] 11/18/2023 10:20 AM EDT Office Visit Family Practice [facility] [address] [place] [address] Hi Mcdaniels MD [address] [place] [address] 11/21/2023 10:30 AM EDT Imaging Radiology [address] [place] [address] 12/02/2023 2:00 PM EDT Telemedicine Neurosurgery, [place] [address] [place] [address] Zackary Nash MD [address] [place] [address] 01/15/2024 10:20 AM EDT Office Visit Nephrology, [facility] [address] [place] [address] Colleen Acosta MD [address] [place] [address] 01/30/2024 8:30 AM EDT Nurse Only Ancillary [facility] [address] [place] [address] [place], Nurse Annual Wellness [facility] [address] [place] [address] Scheduled Procedures Name Priority Associated Diagnoses Date/Ti [...] Additional history exists CKD PHOS USE SMARTSET 66351 03/04/202402/16, 07/15/2022, 12/18/2020, Additional history exists Albumin/Creatinine Ratio 08/18/2024 024, 07/15/2022, 05/08/2022, Additional history exists CKD HGB USE SMARTSET 62677 08/18/202408/18, 07/15/2022, 11/20/2021, Additional history exists TSH [...] filedocumented as of this encounter Care Teams Spindle Plumber Relationship Specialty Start Date End Date Hi Mcdaniels MD [address] [address] PCP - General Family Medicine 10/26/21 documented as of this encounter
--- OUTSIDE RECORDS SUMMARY | 2023-11-24 22:16 | External Medical Summary | Summary of Care ---
Author Name Unknown Organization [facility] Address [address] [place] [address] Phone [phone] Care Team Providers Care Wallpaper Inspector And Shipper Name Role Phone Hi Mcdaniels MD Primary Care Provider [phone] Reason for Visit * Reason Comments Dosage Adjustment In Person (Anticoag Cl inic) Diabetes Follow-Up Encounter Details Date Type Department Care Team (Late st Contact Info) Description 08/12/2023 9:30 AM EDT Office Visit Pharmacy, [facility] [address] [place] [address] [address] Type 2 diabetes mellitus with hemoglobin A1c goal of less than 8.0% ([facility])*; Type 2 diabetes mellitus with stage 3b chronic kidney disease, with long-term current use of insulin ([facility]) Allergies Active Allergy Reactions Criticality Noted [...] in the morning. 1 Each 1 04/02/20 Active Insulin Syringe 30G X 1/2" 0.5 MLIndications:DM type 2, not at goal ([facility]) Use as directed to administer insulin [...] BLOOD SUGAR DX: E11.9 100 Strip 5 06/07/19 24 Active Proventil HFA 108 (90 Base) MCG/ACT Inhalation Aerosol SolutionIndicati ons:Viral URI with cough,Bronchitis , complicated Inhale 2 Puffs by mouth every 4 hours as needed for Congestion or Wheezing. 18 g 1 07/30/19 24 Active Metoprolol Succinate ER 25 MG Oral Tablet Extended Release 24 Hour (toPROL XL) Take 0.5 Tablets by mouth in the morning. 0 08/04/19 24 Active Rosuvastatin Calcium 10 MG Oral Tablet (Crestor) Take 1 Tablet by mouth in the morning. 0 08/04/19 24 Active Aspirin 81 MG Oral Tablet Delayed Release (SB Low Dose ASA EC) Take 1 Tablet by mouth in the morning. 0 Active metFORMIN HCl ER 500 MG Oral Tablet Extended Release 24 Hour (Glucophage XR) Take 1 Tablet by mouth in the morning. 30 Tablet 3 08/12/19 24 Active Vitamin D3 25 MCG Oral Tablet Take 1 Tablet by mouth in the morning. 30 Tablet 0 08/15/19 23 024 Discontinued Cyanocobalamin 1000 MCG Oral Tablet (Cyanocobalamin) Take 1 Tablet by mouth in the morning. 30 Tablet 0 08/15/19 23 024 Discontinued Insulin Glargine-yfgn 100 UNIT/ML Subcutaneous SolutionIndicati ons:Type 2 diabetes mellitus with hemoglobin A1c goal of less than 8.0% ([facility]),Type 2 diabetes mellitus with stage 3b chronic kidney disease, with long-term current use of insulin ([facility]) INJECT 30 UNITS SUBCUTANEOUSLY AT BEDTIME 30 mL 5 05/01/20 23 024 Discontinued(Re fill) Insulin Glargine-yfgn 100 UNIT/ML Subcutaneous SolutionIndicati ons:Type 2 diabetes mellitus with hemoglobin A1c goal of less than 8.0% ([facility]),Type 2 diabetes mellitus with stage 3b chronic kidney disease, with long-term current use of insulin ([facility]) INJECT 25 UNITS SUBCUTANEOUSLY AT BEDTIME 30 mL 5 08/12/19 24 024 Discontinued documented as of this [...] mRNA, LNP-s, No Pre serve, 2-Dose Series (Grapeword) 02/16/2021,08/05/2020,07/15/2020 Covid-19, Mrna, Lnp-s, Pf, B ivalent, [...] this encounter Progress Notes * Marya Mandel, [facility] - 08/12/2023 9:25 AM EDT Medication Therapy Disease Management [facility] - Diabetes Management Progress Note Joanna Gann, identified by name and date of , is a 78 year old female being seen fordiabetes management/education. Patient presents for return diabetic visit. DIABETES: Current diabetic medications: Lantus 30 units daily Medication Injection Site: Abdomen Lifestyle: Diet: unchanged Glucose Review/SMBG: Readings obtained from patient documented BG logbook Pre am Post am Pre Lunch Post Lunch Pre pm Post pm HS 3am 112 199 215 279 80 142 274 306 81 133 250 114 63 84 66 Average 86 #DIV/0! 158 #DIV/0! 245 #DIV/0! 278 #DIV/0! Hi 114 0 199 0 274 0 306 0 Lo 63 0 133 0 [address] 84[address]6 0 142 0 #DIV/0! 0 279 0 Range 51 0 66 0 59 0 56 0 Hypoglycemia: Does your blood sugar go below 70 mg/dL? Yes, mornings Hyperglycemia symptoms present: none Recent Labs Units [...] indicated BP Readings from Last 3 Encounters: 07/27/23 132/76 03/17/23 168/84 03/04/23 115/73 Blood pressure at goal: yes HYPERLIPIDEMIA: Patient is taking moderate or high intensity statin: yes HEALTH MAINTENANCE REVIEW: Health Maintenance Due Topic Date Due DTaP,Tdap,and Td Vaccines (2 - Td or Tdap) 04/19/2021 COLONOSCOPY-EVERY 3 YRS AGES 18-100 11/03/2021 Albumin/Creatinine Ratio 07/15/2023 CKD HGB USE SMARTSET 22414 07/15/2023 Diabetic Foot Exam 07/25/2023 GFR 07/28/2023 HbA1c 08/19/2023 ASSESSMENT & PLAN: BG Readings - Blood sugars uncontrolled. As can be seen above, patient having controlled BG in morning/lunch timeframe with exception of some hypoglycemia in the AM. Also having uncontrolled hyperglycemia in the evening and bedtime. Medications - Reviewed current regimen, patient is adherent to regimen. Patient requires meal coverage at this time as demonstrated by BG logs. Discussed potential options of actos, metformin or jardiance. Reviewed moa and ae of medications options. Will trial metformin ER in AM. Will obtain lab work approximately 1 week after metformin start to evaluate kidney function and then proceed as indicated. Diet, Exercise, Lifestyle - No significant lifestyle changes since last visit. Discussed with patient. Patient is agreeable to SMBG 1-2 time(s) daily. Patient aware to contact clinic if any hypoglycemia before next visit. MEDICATION CHANGES: yes, see below; preferred pharmacy: [facility] Diabetic Medications: DECREASE: Lantus 25 units daily START: Metformin ER 500 mg daily HEALTH MAINTENANCE INTERVENTIONS: Labs: labs already ordered and patient aware to get 1 week after metformin start Immunizations: tdap with pcp Foot Exam: Complete with next PCP visit on 08/12/23 Eye Exam: Up to Date Annual Wellness Visit: Up to Date FOLLOW UP: Return to clinic in 6 weeks 10/01/2023 Marya Mandel RPh Clinical Pharmacist - Pharmacy Analyst Medication Therapy Management Clinic 08/12/2023, 9:25 AM documented in this encounter Plan of Treatment Upcoming Encounters Date Type Department Care Team (Late st Contact Info) Description 08/12/2023 11:00 AM EDT Office Visit [facility] [address] [place] [address] Hi Mcdaniels MD [address] [place] [address] Hospital discharge follow-up*; Type 2 diabetes mellitus with stage 3b chronic kidney disease, with long-term current use of insulin ([facility]); Type 2 diabetes mellitus with hemoglobin A1c goal of less than 8.0% ([facility]); Mild cognitive impairment; Depression with anxiety; HTN, goal below 130/80; VIRGIL (obstructive sleep apnea) 09/29/2023 9:45 AM EDT Office Visit Dermatology [facility] [address] [place] [address] Orestes Slaughter MD [address] [place] [address] 10/01/2023 9:30 AM EDT Office Visit Pharmacy, [facility] [address] [place] [address] [facility] [address] [place] [address] 11/18/2023 10:20 AM EDT Office Visit [facility] [address] [facility] [place] [address] Hi Mcdaniels MD [address] [place] [place] [address] 12/02/2023 2:00 PM EDT Telemedicine Neurosurgery, [place] [address] [place] [address] Zackary Nash MD [address] [place], [place] [id number] 01/15/2024 10:20 AM EDT Office Visit Nephrology, [facility] [address] [place] [address] Colleen Acosta MD [address] [place] [address] 01/30/2024 8:30 AM EDT Nurse Only Ancillary [facility] Bar[facility]omew [place] [address] [facility] [place] [address] [place] Nurse Annual Wellness [facility] [address] [facility] [place] [address] Scheduled Procedures Name Priority Associated Diagnoses Date/Ti me COLONOSCOPY FLEXIBLE PROXIMAL DIAGNOSTIC Recall History of colon polyps Health Maintenance Due Date Last Done Comments DTaP,Tdap,and Td Vaccines (2 - Td or Tdap) 04/19/2021 04/19/2011, 04/04/2003 COLONOSCOPY-EVERY 3 YRS AGES 18-100 11/03/2021 11/03/2018, 04/19/2008 Albumin/Creatinine Ratio 07/15/2023 023, 05/08/2022, 12/18/2020, Additional history exists CKD HGB USE SMARTSET 59942 07/15/202307/15, 11/20/2021, 11/16/2021, Additional history exists Diabetic Foot Exam 07/25/2023 07/24/2022, 0 11/06/2020, 11/25/2019, Additional history exists GFR 07/28/2023 01/27/2023, 06/20, 05/08/2022, Additional history exists HbA1c 08/19/2023 02/17/2023, 09/17, 07/15/2022, Additional history exists TSH 10/10/2023 10/09/2022, 07/17, 06/13/2021, Additional history exists Depression Screening 01/28/2024 01/27/2023 Diabetic Eye Exam 02/22/2024 02/21/2023, , 02/05/2021, Additional history exists CKD PHOS USE SMARTSET 16247 03/04/202402/16, 07/15/2022, 12/18/2020, Additional history exists DXA [...] hemoglobin A1c goal of less than 8.0% ([facility])- Primary Type 2 diabetes mellitus with stage 3b chronic kidney disease, with long-term current use of insulin ([facility]) Hospital discharge follow-up- Primary Other follow-up examination Type 2 diabetes mellitus with stage 3b chronic kidney disease, with long-term current use of insulin ([facility]) Type 2 diabetes mellitus with hemoglobin A1c goal of less than 8.0% ([facility]) Mild cognitive impairment Mild cognitive impairment, so stated Depression with anxiety Dysthymic disorder HTN, goal below 130/80 Unspecified essential hypertension VIRGIL (obstructive sleep apnea) Obstructive sleep apnea (adult) (pediatric) documented in this encounter Care Teams Wallpaper Inspector And Shipper Relationship Specialty Start Date End Date Hi Mcdaniels MD [address] [address] PCP - General Family Medicine 10/26/21 documented as of this encounter
--- OUTSIDE RECORDS SUMMARY | 2023-11-24 22:16 | External Medical Summary ---
Author Name Unknown Address Unknown Organization K01:LABORATORY [facility] - [facility] [place] [address] [place] [address] Laboratory Report Ordering Provider Test Date Status KENY RAMIRES 08/19/2023 09:27:22 Final Observation Date Value Abnormality Reference (Units ) Status TSH 08/19/2023 09:27:22 0.44 0.27-4.20 (uIU/mL) Final Performing Location LABORATORY C - [address] [place] [address]
--- OUTSIDE RECORDS SUMMARY | 2023-11-24 22:16 | External Medical Summary ---
Author Name Unknown Address Unknown Organization K01:LABORATORY [facility] - [address] [place] [address] Laboratory Report Ordering Provider Test Date Status RENA MACK 08/19/2023 09:27:22 Final Observation Date Value Abnormality Reference (Units ) Status MYCODE SPECIMEN-SST 08/19/2023 09:27:22 Freezing of extracted DNA, whole blood and/or serum. Final Performing Location LABORATORY [facility] - [address] [place] [address]
--- OUTSIDE RECORDS SUMMARY | 2023-11-24 22:16 | External Medical Summary | Summary of Care ---
Author Name Unknown Organization [facility] Address [address] [place] [address] Phone [phone] Care Team Providers Care Lay Out Former Name Role Phone Hi Mcdaniels MD Primary Care Provider [phone] Reason for Visit * Reason Onset Date Comments Medication Refill 09/01/2023 Encounter Details Date Type Department Care Team (Late st Contact Info) Description 09/01/2023 Telephone Family Practice [facility] [address] [employer] [place] [address] Hi Mcdaniels MD [address] [place] [address] Medication Refill Allergies Active Allergy Reactions [...] type 2, not at goal ([facility]) Use as directed to administer [...] mRNA, LNP-s, No Pre serve, 2-Dose Series (Panraven) 02/16/2021,08/05/2020,07/15/2020 Covid-19, Mrna, Lnp-s, Pf, B ivalent, 30 Mcg, IM, 12 yrs and above (Panraven) 03/12/2022 H1N1 2009 Influenza, IM 07/04/2009 Pneumococcal [...] encounter Miscellaneous Notes * Telephone Encounter - Alexanrdia Elmore, sales contracts analyst - 09/01/2023 11:05 AM EDT Patient calling requesting Aspirin 81 MG Oral Tablet Delayed Release (SB Low Dose ASA EC . Upon chart review, medication was last prescribed by hospital. Pt did schedule a hospital follow up visit. Please advise if you wish to continue this therapy for the patient. Thank you for your assistance Alexandria Elmore [employer] Recoverer II Centralized [facility] Pharmacy Services (CCPS) (Formerly Telepharmacy) 09/01/2023,11:05 AM documented in this encounter Plan of Treatment Upcoming Encounters Date Type Department Care Team (Late st Contact Info) Description 09/29/2023 9:45 AM EDT Office Visit Dermatology [facility] [address] [place] [address] Orestes Slaughter MD [address] [place] [address] 10/01/2023 9:30 AM EDT Office Visit Pharmacy, [facility] [address] [place] [address] [facility] [address] [place] [address] 11/18/2023 10:20 AM EDT Office Visit Family Practice [facility] [address] [place] [address] Hi Mcdaniels MD [address] [place] [address] 11/21/2023 10:30 AM EDT Imaging Radiology [address] [place] [address] 12/02/2023 2:00 PM EDT Telemedicine Neurosurgery, [place] [address] [place] [address] Zackary Nash MD [address] [place] [address] 01/15/2024 10:20 AM EDT Office Visit Nephrology, [facility] [address] [place] [address] Colleen Acosta MD [address] [place] [address] 01/30/2024 8:30 AM EDT Nurse Only Ancillary [facility] [address] [place] [address] Barth[place]omew, Nurse Annual Wellness [facility] [address] [place] [address] Scheduled Procedures Name Priority Associated Diagnoses Date/Ti [...] Additional history exists CKD PHOS USE SMARTSET 80609 03/04/202402/16, 07/15/2022, 12/18/2020, Additional history exists Albumin/Creatinine Ratio 08/18/2024 024, 07/15/2022, 05/08/2022, Additional history exists CKD HGB USE SMARTSET 52591 08/18/202408/18, 07/15/2022, 11/20/2021, Additional history exists TSH [...] filedocumented as of this encounter Care Teams Lay Out Former Relationship Specialty Start Date End Date Hi Mcdaniels MD [address] [place] [address] PCP - General Family Medicine 10/26/21 documented as of this encounter
--- OUTSIDE RECORDS SUMMARY | 2023-11-24 22:17 | External Medical Summary | Summary of Care ---
Author Name Unknown Organization [facility] Address [address] [place] [address] Phone [phone] Care Team Providers Care Diesel Mechanic Helper Name Role Phone Marko Caldwell MD Primary Care Provider [phone] Reason for Visit * Reason Comments eRx-Medication Refill Encounter Details Date Type Department Care Team (Late st Contact Info) Description 07/30/2023 Refill Family Practice [facility] [address] [facility] [address] Marko Caldwell MD [address] [facility] [address] Stage 3b chronic kidney disease (HCC)*; Type 2 diabetes mellitus with hemoglobin A1c goal of 7.0%-8.0% (HCC); Hypothyroidism due to acquired atrophy of thyroid Allergies Active Allergy Reactions Criticality Noted Date [...] A1c goal of less than 8.0% ([facility]) Use up to 3 times a [...] morning. 1 Each 1 04/02/20 22 Active Vitamin D3 25 MCG Oral Tablet Take 1 Tablet by mouth in the morning. 30 Tablet 0 08/15/19 23 Active Cyanocobalamin 1000 MCG Oral Tablet (Cyanocobalamin) Take 1 Tablet by mouth in the morning. 30 Tablet 0 08/15/19 23 Active Insulin Syringe 30G X 1/2" 0.5 MLIndications:DM type 2, not at goal ([facility]) Use as directed to administer insulin [...] MORNING 90 Tablet 3 04/08/20 23 Active Insulin Glargine-yfgn 100 UNIT/ML Subcutaneous SolutionIndicati ons:Type 2 diabetes mellitus with hemoglobin A1c goal of less than 8.0% ([facility]),Type 2 diabetes mellitus with stage 3b chronic kidney disease, with long-term current use of insulin ([facility]) INJECT 30 UNITS SUBCUTANEOUSLY AT BEDTIME 30 mL 5 05/01/20 23 Active BD Insulin Syringe U/F 30G X 1/2" 0.3 ML (Insulin Syringe-Needle U-100)Indication s:DM type 2, not at goal ([facility]) USE DIRECTED TO ADMINISTER INSULIN UP TO [...] Wheezing. 18 g 1 07/30/19 24 Active Lovastatin 40 MG Oral Tablet TAKE 1 TABLET BY MOUTH EVERYDAY AT BEDTIME 90 Tablet 1 03/20/20 23 024 Discontinued Amoxicillin-Pot Clavulanate 875-125 MG Oral Tablet (Augmentin)Indic ations:Acute non-recurrent maxillary sinusitis Take 1 Tablet by mouth in the morning and 1 Tablet before bedtime. Do all this for 10 days. 20 Tablet 0 07/27/19 24 024 Discontinued(Me dication List Clean Up) predniSONE 20 MG Oral Tablet (Deltasone)Indic ations:Bronchiti s, complicated Take 2 Tablets by mouth in the morning for 5 days. 10 Tablet 0 07/30/19 24 024 Lovastatin 40 MG Oral Tablet TAKE 1 TABLET BY MOUTH EVERYDAY AT BEDTIME 90 Tablet 0 08/01/19 24 024 Discontinued(Me dication List Clean Up) documented as of this [...] MOOD 09/09/1997 0 08/21/2020 Other allergic rhinitis 09/09/1997 1006/2016 Overview: ICD-10 update of inactive term HTN, goal below 140/90 09/09/199706/14 Overview: Per HTN Taxonomy. Type 2 diabetes mellitus wit h hemoglobin A1c goal of less than 7.0% 09/09/1997 08/14/2012 Overview: ICD-10 update of inactive term documented as of this encounter (statuses as of 08/06/2023) Immunizations Name Administration Dates Next Due COVID-19 mRNA, LNP-s, No Pre serve, 2-Dose Series (Scienion) 02/16/2021,08/05/2020,07/15/2020 Covid-19, Mrna, Lnp-s, Pf, B ivalent, [...] encounter Miscellaneous Notes * Telephone Encounter - Mary Monroe - 08/06/2023 1:34 AM EDT Received message from [facility] regarding patient needing labs. Patient was notified. Successfully contacted patient and provided [facility] message. * Telephone Encounter - Na Hinds [facility] - 08/01/2023 8:34 AM EDTSigned Prescriptions: Disp Refills Lovastatin 40 MG Oral Tablet 90 Tab*0 Sig: TAKE 1 TABLET BY MOUTH EVERYDAY AT BEDTIME Authorizing Provider: MARKO CALDWELL Ordering User: NA HINDS Refused Prescriptions: Disp Refills Apidra 100 UNIT/ML Injection Solution (Ins*10 mL 1 Sig: INJECT 3 UNITS SUBCUTANEOUSLY IF BS 100-150 , 5 UNITS IF BS 150-200, 7 UNITS IF 200-250, 10 UNITS IF > 250 FOR SUPPER Refused By: NA HINDS Reason for Refusal: Course of treatment complete * Telephone Encounter - Na Hinds [facility] - 08/01/2023 8:32 AM EDT Provided 90 days supply with 0 refill(s). Per refill protocol patient should have routine on file within past year. Reviewed AMP report, Care Gaps/Health Maintenance, medications list, and for any routine labs typically ordered for this patient. Lab orders placed. Please contact patient to advise of labs ordered for blood draw AND URINE specimen (patient will have to be able to void to provide sample). Recommend patient to fast if able for labs. Patient may still have water and regular medications. Advise to obtain labs before requesting the next refill. Thank you, Na Hinds, PharmD. Clinical Pharmacist Centralized Clinical Pharmacy Services (CCPS) (formerly Telepharmacy) 08/01/2023, 8:33 AM documented in this encounter Plan of Treatment Upcoming Encounters Date Type Department Care Team (Late st Contact Info) Description 08/12/2023 9:30 AM EDT Office Visit Pharmacy, [facility] [address] [facility] [address] [facility] [address] [place] [address] 08/12/2023 11:00 AM EDT Office Visit Family Practice [facility] [address] [place] [address] Marko Caldwell MD [address] [facility] [address] 09/29/2023 9:45 AM EDT Office Visit Dermatology [facility] [address] [facility] [place] [address] Orestes Slaughter MD [address] [facility] [place] [address] 12/02/2023 2:00 PM EDT Telemedicine Neurosurgery, [place] [address] [place] [address] Zackary Nash MD [address] [place], [place] [address] 01/15/2024 10:20 AM EDT Office Visit Nephrology, [facility] [address] [facility] [place] [address] Colleen Acosta MD [address] [facility] [place] [address] 01/30/2024 8:30 AM EDT Nurse Only Ancillary [facility] [address] [facility] [place] [address] [facility], Nurse Annual Wellness [facility] [address] [place] [address] Scheduled Orders Name Type Priority Associated Diagnoses Orde r Schedule BASIC METABOLIC PANEL Lab Routine Type 2 diabetes mellitus with hemoglobin A1c goal of 7.0%-8.0% (HCC) Expected: 08/01/2023 (Approximate), Expires: 07/31/2024 HEMOGLOBIN A1C Lab Routine Type 2 diabetes mellitus with hemoglobin A1c goal of 7.0%-8.0% (HCC) Expected: 08/01/2023 (Approximate), Expires: 07/31/2024 LIPID PANEL WITH DIRECT LDL IF TG IS HIGH Lab Routine Type 2 diabetes mellitus with hemoglobin A1c goal of 7.0%-8.0% (HCC) Expected: 08/01/2023 (Approximate), Expires: 07/31/2024 ALBUMIN / CREATININE RATIO, URINE Lab Routine Type 2 diabetes mellitus with hemoglobin A1c goal of 7.0%-8.0% (HCC) Expected: 08/01/2023, Expires: 07/31/2024 CBC Lab Routine Stage 3b chronic kidney disease (HCC) Expected: 08/01/2023 (Approximate), Expires: 07/31/2024 TSH WITH FREE T4 IF INDICATED Lab Routine Hypothyroidism due to acquired atrophy of thyroid Expected: 08/01/2023 (Approximate), Expires: 07/31/2024 Scheduled Procedures Name Priority Associated Diagnoses Date/Ti me COLONOSCOPY FLEXIBLE PROXIMAL DIAGNOSTIC Recall History of colon polyps Health Maintenance Due Date Last Done Comments DTaP,Tdap,and Td Vaccines (2 - Td or Tdap) 04/19/2021 04/19/2011, 04/04/2003 COLONOSCOPY-EVERY 3 YRS AGES 18-100 11/03/2021 11/03/2018, 04/19/2008 Albumin/Creatinine Ratio 07/15/2023 023, 05/08/2022, 12/18/2020, Additional history exists CKD HGB USE SMARTSET 73735 07/15/202307/15, 11/20/2021, 11/16/2021, Additional history exists Diabetic Foot Exam 07/25/2023 07/24/2022, 0 11/06/2020, 11/25/2019, Additional history exists GFR 07/28/2023 01/27/2023, 06/20, 05/08/2022, Additional history exists HbA1c 08/19/2023 02/17/2023, 09/17, 07/15/2022, Additional history exists TSH 10/10/2023 10/09/2022, 07/17, 06/13/2021, Additional history exists Depression Screening 01/28/2024 01/27/2023 Diabetic Eye Exam 02/22/2024 02/21/2023, , 02/05/2021, Additional history exists CKD PHOS USE SMARTSET 84523 03/04/202402/16, 07/15/2022, 12/18/2020, Additional history exists DXA [...] as of this encounter Visit Diagnoses Diagnosis Stage 3b chronic kidney disease (HCC)- Primary Type 2 diabetes mellitus with hemoglobin A1c goal of 7.0%-8.0% (HCC) Hypothyroidism due to acquired atrophy of thyroid documented in this encounter Care Teams Diesel Mechanic Helper Relationship Specialty Start Date End Date Marko Caldwell MD [address] [address] PCP - General Family Medicine 10/26/21 documented as of this encounter
--- OUTSIDE RECORDS SUMMARY | 2023-11-24 22:17 | External Medical Summary | Summary of Care ---
Author Name Unknown Organization [facility] Address [address] [place] [address] Phone [phone] Care Team Providers Care Star Route Mail Driver Name Role Phone Hi Mcdaniels MD Primary Care Provider [phone] Reason for Visit * Reason Comments Acute Was seen at [facility] on 07/26 - given antibiotic. Not any better Encounter Details Date Type Department Care Team (Late st Contact Info) Description 07/30/2023 3:40 PM EDT Telemedicine General Internal Medicine [facility] [address] [facility] [place] [address] Lo Rojas MD [address] [place] [address] Bronchitis, complicated*; Viral URI with cough; HTN, goal below 130/80; Type 2 diabetes mellitus with hemoglobin A1c goal of less than 8.0% ([facility]); Type 2 diabetes mellitus with stage 3b chronic kidney disease, with long-term current use of insulin ([facility]); VIRGIL (obstructive sleep apnea) Allergies Active Allergy Reactions Criticality Noted Date Comments Adhesive Tape 03/04/2021 Other reaction(s): SKIN IRRITATIONS Atorvastatin 07/03/2017 Bad dreams Nitrofurantoin Low 08/13/2021 Other reaction(s): Gastrointestinal Upset, GI Upset Nitrofurantoin Monohydrate Macrocrystals 06/10/1997 GI sens. documented as of this encounter (statuses as of 08/03/2023) Medications Medication Sig Dispensed Refills Start Date [...] hemoglobin A1c goal of less than 8.0% ([facility]) Use up to 3 times a day [...] 0.5 MLIndications:DM type 2, not at goal ([facility]) Use as directed to administer insulin up [...] hemoglobin A1c goal of less than 8.0% ([facility]),Type 2 diabetes mellitus with stage 3b chronic kidney disease, with long-term current use of insulin ([facility]) INJECT 30 UNITS SUBCUTANEOUSLY AT BEDTIME 30 mL 5 05/01/20 23 Active BD Insulin Syringe U/F 30G X 1/2" 0.3 ML (Insulin Syringe-Needle U-100)Indication s:DM type 2, not at goal ([facility]) USE DIRECTED TO ADMINISTER INSULIN UP TO FOUR TIMES DAILY. DX CODE E11.9 400 Each 3 05/22/19 24 Active OneTouch Ultra In Vitro Strip (Glucose Blood) USE UP TO 4 TIMES A DAY TO TEST BLOOD SUGAR DX: E11.9 100 Strip 5 06/07/19 24 Active Amoxicillin-Pot Clavulanate 875-125 MG Oral Tablet (Augmentin)Indic ations:Acute non-recurrent maxillary sinusitis Take 1 Tablet by mouth in the morning and 1 Tablet before bedtime. Do all this for 10 days. 20 Tablet 0 07/27/19 24 024 Active Proventil HFA 108 (90 Base) MCG/ACT Inhalation Aerosol SolutionIndicati ons:Viral URI with cough,Bronchitis , complicated Inhale 2 Puffs by mouth every 4 hours as needed for Congestion or Wheezing. 18 g 1 07/30/19 24 Active predniSONE 20 MG Oral Tablet (Deltasone)Indic ations:Bronchiti s, complicated Take 2 Tablets by mouth in the morning for 5 days. 10 Tablet 0 07/30/19 24 024 Active Proventil HFA 108 (90 Base) MCG/ACT Inhalation Aerosol SolutionIndicati ons:Viral URI with cough Inhale 2 Puffs by mouth every 4 hours as needed for Congestion or Wheezing. 18 g 1 04/02/20 22 024 Discontinued(Re fill) Lovastatin 40 MG Oral Tablet TAKE 1 TABLET BY MOUTH EVERYDAY AT BEDTIME 90 Tablet 1 03/20/20 23 024 Discontinued documented as of this encounter (statuses as of 08/03/2023) Active Problems Problem Noted Date Diagnosed Date [...] as of this encounter (statuses as of 08/03/2023) Resolved Problems Problem Noted Date Diagnosed Date [...] as of this encounter (statuses as of 08/03/2023) Immunizations Name Administration Dates Next Due COVID-19 mRNA, LNP-s, No Pre serve, 2-Dose Series ([facility]) 02/16/2021,08/05/2020,07/15/2020 Covid-19, Mrna, Lnp-s, Pf, B ivalent, 30 Mcg, IM, 12 yrs and above ([facility]) 03/12/2022 H1N1 2009 Influenza, IM 07/04/2009 Pneumococcal [...] as of this encounter Progress Notes * Lo Rojas MD - 07/30/2023 4:12 PM EDT Images from the original note were not included. History of Present Illness Apolinar Gann is a 78 year old female that presents for Acute (Was seen at [facility] on 07/26- given antibiotic. Not any better) Cough This is a chronic problem. The current episode started 1 to 4 weeks ago (3-4 weeks). The problem has been gradually worsening. The cough is Non-productive. Associated symptoms include chest pain (chest tightness), headaches, nasal congestion, postnasal drip, a sore throat, shortness of breath and wheezing. The symptoms are aggravated by exercise. She has tried OTC cough suppressant (seen at and given ATB without help) for the symptoms. The treatment provided no relief. Her past medical history is significant for environmental allergies. There is no history of asthma or COPD. Physical Exam There were no vitals filed for this visit. Physical Exam Vitals reviewed: exam based on visual on TM with the help of patient. Constitutional: General: She is not in acute distress. Appearance: She is normal weight. HENT: Head: Normocephalic. Pulmonary: Effort: Pulmonary effort is normal. Breath sounds: Wheezing present. Comments: Coughing Musculoskeletal: General: No swelling or tenderness. Neurological: Mental Status: She is alert. I have reviewed the following results: Assessment and Plan Bronchitis, complicated Mucinec bid - Proventil HFA 108 (90 Base) MCG/ACT Inhalation Aerosol Solution; Inhale 2 Puffs by mouth every 4 hours as needed for Congestion or Wheezing. - predniSONE 20 MG Oral Tablet (Deltasone); Take 2 Tablets by mouth in the morning for 5 days. - XR CHEST 2 VIEWS; Future Viral URI with cough - Proventil HFA 108 (90 Base) MCG/ACT Inhalation Aerosol Solution; Inhale 2 Puffs by mouth every 4 hours as needed for Congestion or Wheezing. HTN, goal below 130/80 Type 2 diabetes mellitus with hemoglobin A1c goal of less than 8.0% ([facility]) Type 2 diabetes mellitus with stage 3b chronic kidney disease, with long-term current use of insulin ([facility]) VIRGIL (obstructive sleep apnea) Wrap-Up Time: I spent a total of 30-39 minutes (exact time 34 mins) on the date of service in preparation, delivery, and documentation of the care provided to Joanna Gann excluding any time spent in the performance of separately billed services. Telemedicine: Patient location: HOME. I was in a hospital or clinic location. After connecting through televideo, patient was verified with two unique identifiers. Patient (or authorized legal food products sales representative) wasthen informed that this was a Telemedicine visit and being conducted confidentially over secure lines. Methods to assure confidentiality were taken. Patient acknowledged consent and understanding of privacy and security of the Telemedicine visit. The patient agreed to participate. documented in this encounter Nursing Notes * Katia Kahn LPN - 07/30/2023 4:06 PM EDT Chief Complaint Patient presents with Acute Was seen at [facility] on 07/26 - given antibiotic. Not any better documented in this encounter Plan of Treatment Upcoming Encounters Date Type Department Care Team (Late st Contact Info) Description 08/12/2023 9:30 AM EDT Office Visit Pharmacy, [facility] [address] [address] [facility] [address] [address] 09/29/2023 9:45 AM EDT Office Visit Dermatology [facility] [place] [address] [place] [address] Orestes Slaughter MD [address] [place] [address] 12/02/2023 2:00 PM EDT Telemedicine Neurosurgery, [place] [address] [place] [address] Zackary Nash MD [address] [place] [address] 01/15/2024 10:20 AM EDT Office Visit Nephrology, [facility] [address] [facility] [place] [address] Colleen Acosta MD [address] [place] [address] 01/30/2024 8:30 AM EDT [facility] [address] [place] [address] [facility], Nurse Annual Wellness [facility] [address] [place] [address] Scheduled Orders Name Type Priority Associated Diagnoses Orde r Schedule XR CHEST 2 VIEWS Medical Imaging Routine Bronchitis, complicated Expected: 08/06/2023, Expires: 08/29/2024 Scheduled Procedures Name Priority Associated Diagnoses Date/Ti me COLONOSCOPY FLEXIBLE PROXIMAL DIAGNOSTIC Recall History of colon polyps Health Maintenance Due Date Last Done Comments DTaP,Tdap,and Td Vaccines (2 - Td or Tdap) 04/19/2021 04/19/2011, 04/04/2003 COLONOSCOPY-EVERY 3 YRS AGES 18-100 11/03/2021 11/03/2018, 04/19/2008 Albumin/Creatinine Ratio 07/15/2023 023, 05/08/2022, 12/18/2020, Additional history exists CKD HGB USE SMARTSET 32202 07/15/202307/15, 11/20/2021, 11/16/2021, Additional history exists Diabetic Foot Exam 07/25/2023 07/24/2022, 0 11/06/2020, 11/25/2019, Additional history exists GFR 07/28/2023 01/27/2023, 06/20, 05/08/2022, Additional history exists HbA1c 08/19/2023 02/17/2023, 09/17, 07/15/2022, Additional history exists TSH 10/10/2023 10/09/2022, 07/17, 06/13/2021, Additional history exists Depression Screening 01/28/2024 01/27/2023 Diabetic Eye Exam 02/22/2024 02/21/2023, , 02/05/2021, Additional history exists CKD PHOS USE SMARTSET 45350 03/04/202402/16, 07/15/2022, 12/18/2020, Additional history exists DXA [...] as of this encounter Visit Diagnoses Diagnosis Bronchitis, complicated- Primary Bronchitis, not specified as acute or chronic Viral URI with cough Acute upper respiratory infections of unspecified site HTN, goal below 130/80 Unspecified essential hypertension Type 2 diabetes mellitus with hemoglobin A1c goal of less than 8.0% (HCC) Type 2 diabetes mellitus with stage 3b chronic kidney disease, with long-term current use of insulin ([facility]CC) VIRGIL (obstructive sleep apnea) Obstructive sleep apnea (adult) (pediatric) documented in this encounter Care Teams Star Route Mail Driver Relationship Specialty Start Date End Date Hi Mcdaniels MD [address] [place] [address] PCP - General Family Medicine 10/26/21 documented as of this encounter
[2023-11-25] MEDS: ACETAMINOPHEN 500 MG TAB PO PRN (00:38)
[2023-11-25] MEDS: LEVOTHYROXINE SODIUM 100 MCG TABLET PO SCH (05:36)
[2023-11-25 08:11] LABS: Estimated Average Glucose 169 mg/dl; Hemoglobin A1C 7.5 % (4.5-5.6)
[2023-11-25] MEDS: CHOLECALCIFEROL 25 MCG (1000 UNITS) TAB PO SCH (08:30)
[2023-11-25] MEDS: ROSUVASTATIN CALCIUM 10 MG TAB PO SCH (08:32)
[2023-11-25] MEDS: ASPIRIN 81 MG ECTAB PO SCH (08:32)
[2023-11-25] MEDS: buPROPion XL 150 MG TABCR PO SCH (08:32)
[2023-11-25] MEDS: METOPROLOL SUCC 25MG EXT REL TAB PO SCH (08:32)
[2023-11-25] MEDS: CITALOPRAM 40 MG TAB PO SCH (08:32)
--- NOTE | 2023-11-25 09:52 | Hospitalist Progress Note ---
Date of Service November 25, 2023 Assessment & Plan (1) Altered mental status: (2) Insulin dependent type 2 diabetes mellitus: (3) Meningioma: (4) Hypothyroidism: (5) Dyslipidemia: (6) Depression: (7) HTN (hypertension): Plan: Blood pressure remains mildly elevated (8) CKD (chronic kidney disease) stage 3, GFR 30-59 ml/min: Plan MS. Gann is a 78-year-old female with significant past medical history of type 2 diabetes, history of multiple meningioma, VIRGIL, hypothyroidism, hypertension, depression with anxiety, and mild cognitive impairment admitted for evaluation of progressive confusion. Patient lives with daughter, however, patient alone in last few days as daughter is out of town. There are concerns about patient's ability to care for self, therefore she was brought to hospital. No sign of acute infectious process or focal neurologic deficits to attribute to current presentation at this time. Patient is awake, alert, and engaged in conversation, however, notably forgetful and seeks prompting for questions of "why" she is in the hospital. She endorses full independence in iADLS, but is unable to discuss how or what she does--when asked specifically about groceries and finances, she sates she "handles it all." Plan to call family and discuss in more detail about progression of current symptoms and presentation and goals for patient. #Progressive dementia v acute encephalopathy #Meningioma #mild cognitive impairment Prior MRI 11/20 with [id number] meningioma, [id number] meningioma and [facility] CT 11/23 without acute intracranial process Had been living with her daughter without any significant problem She has been alone lately because daughter has gone out of town Noted to be confused occasionally and forgetful to take her medications or even going to wrong places at times Was sent in by the PCP and also the son with the POA for further evaluation and past possible placement No signs of acute infection or other process contributing to presentation Neurology consult ordered PT/OT pending #Hypothyroidism TSH low and free T4 is slightly elevated Will reduce levothyroxine by 25% -75mcg q am with plans for repeat levels in 4-6 wks with PCP #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 Notably thinks hard to process why she is in the hospital--when suggesting confusion, patient promptly agrees and states she "guesses [she] must've been confused Endorses strong appetitie, denies any acute concerns States year is 2022, month October, president Leandra. States she handles all of her grocery shopping and finances without issue When asked about "yesterday"--she cannot recall events, just notes she "guesses she was brought to hospital" Physical Exam Constitutional: WD/WN, vitals as above Respiratory: normal respiratory effort, lungs clear to auscultation Cardiovascular: RRR, no murmur, no edema Gastrointestinal (Abdomen): normal bowel sounds, soft, nontender, no hepatosplenomegaly Neurologic: PERRL, EOMI, accommodation nl, no face palsy, no dysarthria Results & Data Results & Data Vital Signs (Past 12 Hours) Vital Signs Temp Pulse Resp BP Pulse Ox O2 Del Method 11/25/23 07:30 36.9 C 63 18 143/79 H 99 Room Air Laboratory Results Short CBC 11/24/23 Range/Units 13:01 WBC 8.23 (4.8-10.8) K/ul Hgb 12.3 (12.0-16.0) g/dl Hct 38.3 (37.0-47.0) % Plt Count 252 (130-400) K/uL BMP 11/24/23 13:01 Sodium 139 Potassium 3.9 Chloride 101 Carbon Dioxide 30 BUN 36 H Creatinine 1.33 H Glucose 172 H Calcium 9.3 Liver Function 11/24/23 Range/Units 13:01 Total Bilirubin 0.9 (0.2-1.0) mg/dl AST 11 L (13-39) U/L ALT 9 (7-52) U/L Alkaline Phosphatase 37 (34-104) U/L Albumin 4.1 (3.4-5.0) gm/dl Urine 11/24/23 Range/Units 13:01 Urine Color Yellow Urine Appearance Clear (Clear) Urine pH 6.0 (4.5-7.5) Ur Specific Williams 1.019 (1.000-1.030) Urine Protein Negative (Negative) Urine Glucose (UA) Negative (Negative) Medications Administered Home Medications Medication Instructions Recorded Confirmed Last Taken hydrochlorothiazide 25 mg tablet 25 mg PO QAM 10/27/18 11/24/23 02/21/23 insulin glargine 100 unit/mL 25 unit subcut HS 10/27/18 11/24/23 11/22/23 subcutaneous solution (Lantus U-100 Insulin) levothyroxine 100 mcg tablet 100 mcg PO DAILYBB 03/04/21 11/24/23 02/21/23 Ravinder Fierro #1 ea 03/04/22 11/24/23 Unknown acetaminophen 500 mg capsule 1,000 mg PO TID PRN Headache 02/21/23 11/24/23 Unknown bupropion HCl 150 mg 24 hr tablet, 150 mg PO QAM 02/21/23 11/24/23 02/21/23 extended release gabapentin 100 mg capsule 200 mg PO BID 02/21/23 11/24/23 02/21/23 albuterol sulfate 90 mcg/actuation 2 puff inhalation Q4H PRN 07/31/23 11/24/23 Unknown aerosol inhaler (Proventil HFA) Shortness Of Breath Or Wheezing cholecalciferol (vitamin D3) 25 25 mcg PO QAM 07/31/23 11/24/23 Unknown mcg (1,000 unit) tablet citalopram 40 mg tablet 40 mg PO QAM 07/31/23 11/24/23 Unknown multivitamin with minerals 1 tab PO Q2D 07/31/23 11/24/23 Unknown (Multiple Vitamin-Minerals tablet) aspirin 81 mg tablet,delayed 81 mg PO QAM #30 tabs 08/04/23 11/24/23 Unknown release metoprolol succinate 25 mg 12.5 mg (1/2 x 25 mg) PO QAM #30 08/04/23 11/24/23 Unknown tablet,extended release 24 hr tabs rosuvastatin 10 mg tablet 10 mg PO QAM #30 tabs 08/04/23 11/24/23 Unknown metformin 500 mg tablet,extended 500 mg PO AMPM 11/24/23 11/24/23 Unknown release 24 hr Active Medications Generic Name Dose Route Start Last Admin Trade Name Freq PRN Reason Stop Dose Admin Acetaminophen 1,000 mg 11/24/23 20:37 11/25/23 00:38 Acetaminophen 500 Mg Tab PO 12/24/23 20:36 1,000 mg TID PRN Administration Headache Aspirin 81 mg 11/25/23 09:00 11/25/23 08:32 Aspirin 81 Mg Ectab PO 12/25/23 08:59 81 mg QAM MADYSON Administration Bupropion HCl 150 mg 11/25/23 09:00 11/25/23 08:32 Bupropion Xl 150 Mg Tabcr PO 12/25/23 08:59 150 mg QAM MADYSON Administration Citalopram Hydrobromide 40 mg 11/25/23 09:00 11/25/23 08:32 Citalopram 40 Mg Tab PO 12/25/23 08:59 40 mg QAM MADYSON Administration Gabapentin 200 mg 11/24/23 21:00 11/25/23 08:31 Gabapentin 100 Mg Cap PO 12/24/23 20:59 200 mg BID MADYSON Administration Heparin Sodium (Porcine) 5,000 units 11/24/23 21:00 11/25/23 08:33 Heparin Sod 5,000 Unit/0.5 Ml Vial SQ 12/24/23 20:59 5,000 units Q12 MADYSON Administration Sodium Chloride 1,000 mls @ 80 mls/hr 11/24/23 16:15 11/25/23 08:29 Nss IV 11/26/23 05:44 80 mls/hr .[id number] MADYSON Administration Insulin Aspart 0 units 11/24/23 21:00 11/25/23 09:22 Insulin Aspart Per Unit Charge SC 12/24/23 20:59 3 units ACHS MADYSON Administration Insulin Glargine 25 units 11/24/23 21:00 11/24/23 21:34 Lantus Per Unit Charge SQ 12/24/23 20:59 25 units HS MADYSON Administration Levothyroxine Sodium 100 mcg 11/25/23 06:30 11/25/23 05:36 Levothyroxine Sodium 100 Mcg Tablet PO 12/25/23 06:29 100 mcg DAILYBB MADYSON Administration Metoprolol Succinate 12.5 mg 11/25/23 09:00 11/25/23 08:32 Metoprolol Succ 25mg Ext Rel Tab PO 12/25/23 08:59 12.5 mg QAM MADYSON Administration Multivitamins/Minerals 1 tab 11/24/23 21:00 11/24/23 21:38 Cerovite Adv Formula Tab PO 12/24/23 20:59 1 tab Q2D MADYSON Administration Rosuvastatin Calcium 10 mg 11/25/23 09:00 11/25/23 08:32 Rosuvastatin Calcium 10 Mg Tab PO 12/25/23 08:59 10 mg QAM MADYSON Administration Vitamin D 25 mcg 11/25/23 09:00 11/25/23 08:30 Cholecalciferol 25 Mcg (1000 Units) Tab PO 12/25/23 08:59 25 mcg QAM MADYSON Administration
--- NOTE | 2023-11-25 20:18 | Neurology Consultation ---
Date of Consultation November 25, 2023 Assessment & Plan (1) Cognitive change: Cognitive changes that has been with steady decline could be attributed to a neurodegenerative process such as Alzheimer's dementia less likely representing an acute process. Less likely related to her meningioma. Plan TSH is noted to be within the normal range, and recheck B12,. Can perform heavy metal screening. NIEVES Consider starting Aricept 5 mg at bedtime this can be increased to 10 mg in 1 week. Please refer to the memory and cognition clinic at [facility] for further evaluation and follow-up Telehealth Consultation Telehealth Information Telehealth Information: I performed this visit using a real-time telehealth connection between my location and the patients location ([facility]). After connecting through interactive tele-video, patient was identified by name and date of and/or wristband check.Patient (or authorized healthcare sales representative electric service) was informed that this was a telemedicine visit and it was being conducted confidentially over secure lines. My office door was closed and no one else was present in the room with me.Patient (or authorized healthcare sales representative electric service) provided consent to proceed with the visit, expressed an understanding of privacy and security of the telemedicine visit, and gave permission to have a hospital sales representative electric service in the room in order to assist with the visit and to conduct portions of the visit, as needed. I informed the patient (or authorized healthcare sales representative electric service) that I reviewed their record and presented the opportunity for them to ask any questions regarding the visit today. The patient agreed to participate. History of Present Illness Reason for Consultation: Cognitive decline Requesting Physician: Luba Mejia MD Attending Physician: Luba Mejia MD History of Present Illness 78-year-old female patient with PMH of HTN, VIRGIL, CKD, history of prior presentations for cognitive impairment as of February 2023. The patient was previously worked up by MRI EEG, does not rule out [place] Patient presented to the hospital for evaluation of abdomen. The patient has been living with her daughter who is now out of town and has been alone, her son was the power of research attorney reported that she has not been doing well in her ADLs, not taking her medications as she should despite the presence of a pillbox, has been going to the wrong places and forgetting things. The patient tells me that her memory might have been a little off but not more than usual, she appears to be in denial, reports that she still drives and takes activities of daily living she might have forgotten,which is not a big deal. When asked to why she is in the hospital, she reports because consider neurosurgery had recommended that she get an MRI. She cannot remember what she had for dinner, she had some word finding difficulty, reported no motor or sensory deficits, no gait changes. Asked about headaches she reports intermittent right frontal headaches that comes and goes, every few weeks. Allergies Allergy/AdvReac Type Severity Reaction Status Date / Time atorvastatin [From Lipitor] AdvReac Mild Bad dreams Verified 11/24/23 17:07 nitrofurantoin AdvReac Mild GI Upset Verified 11/24/23 17:07 adhesive AdvReac Unknown Skin Verified 11/24/23 17:07 irritations Home Medications Medication Instructions Recorded Confirmed Type hydrochlorothiazide 25 mg tablet 25 mg PO QAM 10/27/18 11/24/23 History insulin glargine 100 unit/mL 25 unit subcut HS 10/27/18 11/24/23 History subcutaneous solution (Lantus U-100 Insulin) levothyroxine 100 mcg tablet 100 mcg PO DAILYBB 03/04/21 11/24/23 History Ravinder Fierro #1 ea 03/04/22 11/24/23 Rx acetaminophen 500 mg capsule 1,000 mg PO TID PRN Headache 02/21/23 11/24/23 History bupropion HCl 150 mg 24 hr tablet, 150 mg PO QAM 02/21/23 11/24/23 History extended release gabapentin 100 mg capsule 200 mg PO BID 02/21/23 11/24/23 History albuterol sulfate 90 mcg/actuation 2 puff inhalation Q4H PRN 07/31/23 11/24/23 History aerosol inhaler (Proventil HFA) Shortness Of Breath Or Wheezing cholecalciferol (vitamin D3) 25 25 mcg PO QAM 07/31/23 11/24/23 History mcg (1,000 unit) tablet citalopram 40 mg tablet 40 mg PO QAM 07/31/23 11/24/23 History multivitamin with minerals 1 tab PO Q2D 07/31/23 11/24/23 History (Multiple Vitamin-Minerals tablet) aspirin 81 mg tablet,delayed 81 mg PO QAM #30 tabs 08/04/23 11/24/23 Rx release metoprolol succinate 25 mg 12.5 mg (1/2 x 25 mg) PO QAM #30 08/04/23 11/24/23 Rx tablet,extended release 24 hr tabs rosuvastatin 10 mg tablet 10 mg PO QAM #30 tabs 08/04/23 11/24/23 Rx metformin 500 mg tablet,extended 500 mg PO AMPM 11/24/23 11/24/23 History release 24 hr Patient History Medical History Acute metabolic encephalopathy Encounter for pre-operative examination Brain lesion Likely 2 meningiomas per 10/01/21 brain MRI > referred to neurosurgery by PCP (appt scheduled 10/17; S) Hypokalemia Abnormal urinalysis DVT prophylaxis Osteoarthritis Hypothyroidism Diabetes mellitus, type 2 IDDM Depression Hypertension Hyperlipidemia Asthma allergy induced Surgical History Status post left knee replacement Status post total left knee replacement History of carpal tunnel release Right (07/2019) History of lumbar discectomy History of anesthesia reaction Slow to wake History of dilatation and curettage History of bilateral tubal ligation History of colonoscopy History of tooth extraction History of wisdom tooth extraction History of tonsillectomy and adenoidectomy History of bilateral cataract extraction Family History Father Family history of reaction to anesthesia little slow to wake up Family history of diabetes mellitus Family hx colonic polyps Social History Smoking Status: Never smoker Second Hand Exposure: No; Do You Dip or Chew Tobacco: No; Hx Alcohol Use: No Hx Substance Use: No Preferred Language: Barbadian Communication Ability: Effective Warehouse Logistics 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 Required: No Beliefs That Will Affect Care: None marital status: / Current Living Situation: Alone and Other Current Living Situation Comment: daughter originally lived with patient but is away at this time Feels Safe at Home: Yes Safety Concerns: Feels Safe At This Time Assistive Devices: Cane, Walker and Other Review of Systems Unable to obtain due to memory changes Physical Exam General Constitutional: Appearance normally developed obese Head and face: normocephalic and atraumatic Eyes: no ptosis, no anisocoria, and no dysconjugate gaze Respiratory: normal effort Cardiovascular: regular rhythm and regular rate Abdomen: non distended Skin: no rashes, lesions, or ulcers noted Psychiatric: normal judgement and insight, normal mood, and normal affect NEUROLOGIC EXAMINATION: Mental Status:alert, oriented to time, knows it is November 2023 place, person knows she is in the hospital, impaired recent memory could not remember what she had for dinner could not say why she is in the hospital, normal attention span, normal concentration, had some difficulty with word finding for example was able to name a pencil, but not deformed, was able to name the paper Cranial Nerves: CN 2 - no visual defect on confrontation and pupils round, equal, reactive to light CN 3, 4, 6 - extra-ocular movements intact and no nystagmus CN 5 - facial sensation intact CN 7 - no facial asymmetry CN 8 - intact hearing CN 9, 10 - palate symmetric, normal gag CN 11 - good shoulder shrug CN 12 - tongue midline MOTOR: Strength was at least antigravity throughout, Pronator drift was absent and There were no abnormal movements SENSATION: intact and symmetric to pinprick, light touch, vibration and joint position GAIT: stable, no ataxia and can perform tandem walking COORDINATION: no ataxia with finger to nose testing and heel to griffin testing REFLEXES: cannot assess over telemedicine Results & Data Vital Signs (Past 12 Hours) Vital Signs Temp Pulse Resp BP Pulse Ox O2 Del Method 11/25/23 16:30 36.9 C 62 18 150/62 H 96 Room Air Laboratory Results Laboratory Results - last 24 hr 11/24/23 11/25/23 11/25/23 21:08 07:12 07:48 POC Glucose 247 H 91 Estimat Average Glucose 169 Hemoglobin A1c 7.5 H 11/25/23 11/25/23 12:08 16:59 POC Glucose 113 H 85 Estimat Average Glucose Hemoglobin A1c Diagnostic Findings CT head/brain wo con CLINICAL HISTORY: 78 years-old Female with confusion. Acute confusion with altered mental status COMPARISON: 07/31/2023, 03/04/2023 FINDINGS: No acute intracranial hemorrhage, midline shift, intra-axial mass, hydrocephalus, territorial ischemia or abnormal extra-axial collection.There is age-related involutional change. Small left anterior parafalcine meningiomas m easuring up to 12 mm artery noted. There is no associated mass effect. The calvarium is intact. The paranasal sinuses, mastoid air cells, and middle ear cavities are clear. IMPRESSION: No acute intracranial abnormality. MRI OF THE BRAIN WITHOUT IV CONTRAST CLINICAL HISTORY: Change in mental status. COMPARISON STUDY: CT of the brain dated 03/04/2023. TECHNIQUE: MRI of the brain was performed utilizing various T1 and T2-weighted sequences in the axial, sagittal, and coronal planes. IV contrast was not administered for this examination. FINDINGS: Brain parenchyma: There is age-related involutional change. Small left anterior parafalcine meningioma meningiomas measuring up to 12 mm there is no associated mass effect. No hemorrhage is identified. There is no restricted diffusion typic al for acute ischemia. Albarran-white matter differentiation is preserved. No extra- axial fluid collection is seen. The cerebellar tonsils are normal in configuration. Ventricles, sulci, and cisterns: Prominent secondary to involutional change. Pituitary and sella: Unremarkable. Intracranial vasculature: Normal flow voids are maintained at the skull base. Orbits: The bony orbits are grossly intact. Orbital contents are normal in appearance noting bilateral ocular lens implants. Sinuses and mastoids: Clear. Calvarium: Unremarkable. Cervical cord: Partially visualized cervical spinal cord is normal in morphology and signal intensity. IMPRESSION: No acute intracranial abnormality. EEG: Description This is a 21 electrode EEG with a single channel dedicated to limited EKG. The electrodes were placed in accordance with the International 10-20 system. There is a posterior dominant rhythm of 10 Hz which is symmetrically distributed and attenuates with eye opening. There is a normal anterior to posterior organization. Photic stimulation is unremarkable, hyperventilation is not performed. There is a symmetric frontal beta rhythm. There is no focal slowing, there are no epileptiform abnormalities, there are no changes suggestive of sleep. Interpretation Normal-appearing awake/drowsy EEG. A normal EEG does not completely exclude a diagnosis of epilepsy. Further clinical correlation may be needed.
[2023-11-26] MEDS: LEVOTHYROXINE SODIUM 75 MCG TABLET PO SCH (05:38)
[2023-11-26 06:28] LABS: Hematocrit (blood only) 35.6 % (37.0-47.0); Hemoglobin 11.5 g/dl (12.0-16.0); Mean Corpuscular Hemoglobin 26.9 pg (25.0-34.0); Mean Corpuscular Hgb Conc 32.3 g/dL (32.0-36.0); Mean Corpuscular Volume 83.2 fL (80.0-100.0); Mean Platelet Volume 10.6 fL (9.4-12.4); Platelet Count 212 K/uL (130-400); RDW Coefficient of Variation 13.3 % (11.5-14.5); RDW Standard Deviation 40.1 fL (36.4-46.3); Red Blood Count 4.28 M/uL (4.20-5.40); White Blood Count 7.75 K/ul (4.8-10.8)
[2023-11-26 06:50] LABS: BUN Creatinine Ratio 23.7 (10-20); Creatinine Clr Calc Pharmacy 36.1 ml/min; Est GFR (African American) 45.4 ml/min; Est GFR (Non-African American) 39.2 ml/min; Potassium 3.5 mmol/L (3.5-5.1)
[2023-11-26] MEDS: CARBOHYDRATES FOR HYPOGLYCEMIA PO ONE (06:56)
[2023-11-26] MEDS: amLODIPine BESYLATE 5 MG TAB PO SCH (15:20)
--- NOTE | 2023-11-26 17:38 | Hospitalist Progress Note ---
Date of Service November 26, 2023 Assessment & Plan (1) Altered mental status: (2) Insulin dependent type 2 diabetes mellitus: (3) Meningioma: (4) Hypothyroidism: (5) Dyslipidemia: (6) Depression: (7) HTN (hypertension): Plan: Blood pressure remains mildly elevated (8) CKD (chronic kidney disease) stage 3, GFR 30-59 ml/min: Plan MS. Gann is a 78-year-old female with significant past medical history of type 2 diabetes, history of multiple meningioma, VIRGIL, hypothyroidism, hypertension, depression with anxiety, and mild cognitive impairment admitted for evaluation of progressive confusion. Patient lives with daughter, however, patient alone in last few days as daughter is out of town. There are concerns about patient's ability to care for self, therefore she was brought to hospital. No sign of acute infectious process or focal neurologic deficits to attribute to current presentation at this time. Patient is awake, alert, and engaged in conversation, however, notably forgetful and seeks prompting for questions of "why" she is in the hospital. She endorses full independence in iADLS, but is unable to discuss how or what she does--when asked specifically about groceries and finances, she sates she "handles it all." Plan to call family and discuss in more detail about progression of current symptoms and presentation and goals for patient. Progressive dementia v acute encephalopathy Meningioma Mild cognitive impairment Prior MRI 11/20 with [id number] meningioma, [id number] meningioma and DVA -CT Head: 11/23 without acute intracranial process Had been living with her daughter without any significant problem. She has been alone lately because daughter has gone out of town. Noted to be confused occasionally and forgetful to take her medications or even going to wrong places at times No signs of acute infection or other process contributing to presentation Appreciate neurology input Will obtain B12, heavy metal screen, NIEVES Reorient frequently Will consider Aricept Will need follow-up with neurology outpatient Hypothyroidism TSH low and free T4 is slightly elevated Will reduce levothyroxine dose from 100 to 75 mcg daily Will need repeat thyroid function test as outpatient Hypokalemia Replete electrolytes as needed DM II Hold metformin Given hypoglycemic episode today, will decrease glargine to 20 units at bedtime Monitor BGs HLD continue statin and asa HTN continue Metoprolol Resume HCTZ Monitor BP, renal function Depression continue Wellbutrin and citalopram CKD III stable Monitor renal function DVT prophylaxis Heparin SQ CODE STATUS Full Code Disposition Case management to help with discharge planning Admission and Anticipated Discharge Date Admission Date: November 24, 2023 Subjective Patient is seen and examined at bedside States headache is improving Offers no new complaints Eager to get discharged Denies any chest pain, dyspnea, nausea, vomiting, abdominal pain Review of Systems Review of Systems: All systems reviewed & are unremarkable except as noted in Subjective Physical Exam Physical Exam: Physical Exam: Vitals signs as noted above General Appearance:Obese, no apparent distress Head: normocephalic, Atraumatic Eyes: normal inspection, EOMI Neck: supple, Trachea midline Respiratory/Chest: Normal breath sounds, CTA, No accessory muscle use Cardiovascular: S1, S2, No murmur Abdomen/GI:Soft, Non tender, Bowel sounds present Extremities/Musculoskeletal:normal inspection, Trace edema Neurologic/Psych:AAOX3, grossly no focal neurological deficits Skin: normal color, warm Results & Data Results & Data Vital Signs (Past 12 Hours) Vital Signs Temp Pulse Resp BP Pulse Ox O2 Del Method 11/26/23 14:40 36.5 C 63 16 165/83 H 98 Room Air 11/26/23 06:54 36.4 C L 54 L 15 175/87 H 98 Room Air Laboratory Results Short CBC 11/26/23 Range/Units 05:39 WBC 7.75 (4.8-10.8) K/ul Hgb 11.5 L (12.0-16.0) g/dl Hct 35.6 L (37.0-47.0) % Plt Count 212 (130-400) K/uL BMP 11/26/23 05:39 Sodium 142 Potassium 3.5 Chloride 106 Carbon Dioxide 29 BUN 31 H Creatinine 1.31 H Glucose 51 L* Calcium 9.0
[2023-11-26] MEDS: LANTUS PER UNIT CHARGE SQ SCH (20:31)
[2023-11-27 07:56] LABS: BUN Creatinine Ratio 22.7 (10-20); Calcium 9.1 mg/dl (8.6-10.3); Creatinine Clr Calc Pharmacy 30.7 ml/min; Est GFR (African American) 37.3 ml/min; Est GFR (Non-African American) 32.2 ml/min; Potassium 3.9 mmol/L (3.5-5.1)
[2023-11-27] MEDS: hydroCHLOROthiazide 25 MG TAB PO SCH (08:34)
--- NOTE | 2023-11-27 17:36 | Hospitalist Progress Note ---
Date of Service November 27, 2023 Assessment & Plan (1) Altered mental status: (2) Insulin dependent type 2 diabetes mellitus: (3) Meningioma: (4) Hypothyroidism: (5) Dyslipidemia: (6) Depression: (7) HTN (hypertension): Plan: Blood pressure remains mildly elevated (8) CKD (chronic kidney disease) stage 3, GFR 30-59 ml/min: Plan MS. Gann is a 78-year-old female with significant past medical history of type 2 diabetes, history of multiple meningioma, VIRGIL, hypothyroidism, hypertension, depression with anxiety, and mild cognitive impairment admitted for evaluation of progressive confusion. Patient lives with daughter, however, patient alone in last few days as daughter is out of town. There are concerns about patient's ability to care for self, therefore she was brought to hospital. No sign of acute infectious process or focal neurologic deficits to attribute to current presentation at this time. Patient is awake, alert, and engaged in conversation, however, notably forgetful and seeks prompting for questions of "why" she is in the hospital. She endorses full independence in iADLS, but is unable to discuss how or what she does--when asked specifically about groceries and finances, she sates she "handles it all." Plan to call family and discuss in more detail about progression of current symptoms and presentation and goals for patient. Progressive dementia v acute encephalopathy Meningioma Mild cognitive impairment Prior MRI 11/20 with [id number] meningioma, [id number] meningioma and DVA -CT Head: 11/23 without acute intracranial process Had been living with her daughter without any significant problem. She has been alone lately because daughter has gone out of town. Noted to be confused occasionally and forgetful to take her medications or even going to wrong places at times No signs of acute infection or other process contributing to presentation Appreciate neurology input Normal vitamin B12 level Heavy metal screen, NIEVES--pending Reorient frequently Discussed with patient's son regarding Aricept--prefers to defer until cognitive testing as outpatient Will need follow-up with neurology outpatient Hypothyroidism TSH low and free T4 is slightly elevated Will reduce levothyroxine dose from 100 to 75 mcg daily Will need repeat thyroid function test as outpatient Left knee degenerative joint disease Consulted orthopedics as requested by patient's family Hypokalemia Replete electrolytes as needed DM II Hold metformin Given hypoglycemic episode today, will decrease glargine to 20 units at bedtime Monitor BGs HLD continue statin and asa HTN continue Metoprolol Resume HCTZ Monitor BP, renal function Depression continue Wellbutrin and citalopram CKD III stable Monitor renal function DVT prophylaxis Heparin SQ CODE STATUS Full Code Disposition Case management to help with discharge planning Admission and Anticipated Discharge Date Admission Date: November 24, 2023 Subjective Patient is seen and examined at bedside Tearful during my encounter, prefers to be discharged home Discussed with patient's son over the phone in detail Headache resolved Blood pressure better today Patient offers no complaints otherwise Denies any chest pain, dyspnea, nausea, vomiting, abdominal pain Review of Systems Review of Systems: All systems reviewed & are unremarkable except as noted in Subjective Physical Exam Physical Exam: Physical Exam: Vitals signs as noted above General Appearance:Obese, no apparent distress Head: normocephalic, Atraumatic Eyes: normal inspection, EOMI Neck: supple, Trachea midline Respiratory/Chest: Normal breath sounds, CTA, No accessory muscle use Cardiovascular: S1, S2, No murmur Abdomen/GI:Soft, Non tender, Bowel sounds present Extremities/Musculoskeletal:normal inspection, Trace edema Neurologic/Psych:AAOX3, grossly no focal neurological deficits Skin: normal color, warm Results & Data Results & Data Vital Signs (Past 12 Hours) Vital Signs Temp Pulse Resp BP BP Pulse Ox O2 Del Method 11/27/23 14:40 36.6 C 61 16 133/84 98 Room Air 11/27/23 07:08 36.5 C 56 L 15 137/74 98 Room Air Laboratory Results [facility] 11/27/23 06:52 Sodium 140 Potassium 3.9 Chloride 104 Carbon Dioxide 30 BUN 35 H Creatinine 1.54 H Glucose 74 Calcium 9.1
[2023-11-28 06:16] LABS: BUN Creatinine Ratio 25.4 (10-20); Est GFR (African American) 33.4 ml/min; Est GFR (Non-African American) 28.8 ml/min; Potassium 3.8 mmol/L (3.5-5.1)
[2023-11-28] MEDS ORDERED: GLUCAGON FOR INJ 1 MG VIAL SQ PRN (06:33)
[2023-11-28] MEDS ORDERED: GLUCOSE 40% GEL 15 GM TUBE PO PRN (06:33)
[2023-11-28] MEDS ORDERED: GLUCOSE 10 TAB/TUBE PO PRN (06:33)
[2023-11-28] MEDS ORDERED: DEXTROSE 50% 50 ML SYRINGE IV PRN (06:33)
--- NOTE | 2023-11-28 07:10 | Orthopedic Consultation ---
Date of Service November 28, 2023 Assessment & Plan (1) Right knee DJD: 78-year-old female 2 years out from left knee replacement admitted with mental status changes. Rice is here for some right knee pain. She got known arthritis in this knee. Not currently having a lot of pain. Treatment options include conservative management including oral medicines, physical therapy, and injection if desired. If she wants an injection into her knee she can schedule a follow-up appointment in our office and we can do it there. There is no functional limitations from our standpoint. Would encourage ambulation and activity. Any orthopedic questions can be directly [phone]. She does not need any aspirations at this point. She can call our office to make an appointment if she wants an injection. (2) Status post left knee replacement: History of Present Illness Reason for Consultation: . Right knee pain. Requesting Physician: . Attending Physician: Cory Alfaro MD . Patient is a 78-year-old female with multiple medical comorbidities 1 and a from previous left knee replacement admitted for some mental status changes. She does have some other medical issues including diabetes. She is 2 years out from left knee replacement. We are asked to see her for right knee pain. I saw her this morning. Really not having a whole lot of knee pain currently. She does have a history of knee pain with known arthritis. She reports no falls just some knee pain. Once again is not currently hurting. Allergies Allergy/AdvReac Type Severity Reaction Status Date / Time atorvastatin [From Lipitor] AdvReac Mild Bad dreams Verified 11/24/23 17:07 nitrofurantoin AdvReac Mild GI Upset Verified 11/24/23 17:07 adhesive AdvReac Unknown Skin Verified 11/24/23 17:07 irritations Home Medications Medication Instructions Recorded Confirmed Type hydrochlorothiazide 25 mg tablet 25 mg PO QAM 10/27/18 11/24/23 History insulin glargine 100 unit/mL 25 unit subcut HS 10/27/18 11/24/23 History subcutaneous solution (Lantus U-100 Insulin) levothyroxine 100 mcg tablet 100 mcg PO DAILYBB 03/04/21 11/24/23 History Ravinder Hose #1 ea 03/04/22 11/24/23 Rx acetaminophen 500 mg capsule 1,000 mg PO TID PRN Headache 02/21/23 11/24/23 History bupropion HCl 150 mg 24 hr tablet, 150 mg PO QAM 02/21/23 11/24/23 History extended release gabapentin 100 mg capsule 200 mg PO BID 02/21/23 11/24/23 History albuterol sulfate 90 mcg/actuation 2 puff inhalation Q4H PRN 07/31/23 11/24/23 History aerosol inhaler (Proventil HFA) Shortness Of Breath Or Wheezing cholecalciferol (vitamin D3) 25 25 mcg PO QAM 07/31/23 11/24/23 History mcg (1,000 unit) tablet citalopram 40 mg tablet 40 mg PO QAM 07/31/23 11/24/23 History multivitamin with minerals 1 tab PO Q2D 07/31/23 11/24/23 History (Multiple Vitamin-Minerals tablet) aspirin 81 mg tablet,delayed 81 mg PO QAM #30 tabs 08/04/23 11/24/23 Rx release metoprolol succinate 25 mg 12.5 mg (1/2 x 25 mg) PO QAM #30 08/04/23 11/24/23 Rx tablet,extended release 24 hr tabs rosuvastatin 10 mg tablet 10 mg PO QAM #30 tabs 08/04/23 11/24/23 Rx metformin 500 mg tablet,extended 500 mg PO AMPM 11/24/23 11/24/23 History release 24 hr Past Med/Surg History Problem List Cognitive change Confusion (Acute) Chest pain Dyslipidemia, goal LDL below 70 Abnormal echocardiogram DKA (diabetic ketoacidosis) Elevated troponin (Acute) Shortness of breath (Acute) Acute hyperglycemia (Acute) Hypokalemia (Acute) Morbid obesity Acute UTI (Acute) Altered mental status (Acute) UTI (urinary tract infection) Insulin dependent type 2 diabetes mellitus Meningioma Altered mental status Left rotator cuff tear Right knee DJD Status post left knee replacement Diabetes (Chronic) Dyslipidemia (Chronic) HTN (hypertension) (Chronic) Hypothyroidism (Chronic) Depression (Chronic) Carpal tunnel syndrome of left wrist S/P carpal tunnel release Femur fracture, left (Acute) Strain of left quadriceps Ambulatory dysfunction Degenerative arthritis of knee, bilateral Right rotator cuff tear CKD (chronic kidney disease) stage 3, GFR 30-59 ml/min (Chronic) Sleep apnea CPAP (compliant) Medical History Acute metabolic encephalopathy Encounter for pre-operative examination Brain lesion Likely 2 meningiomas per 10/01/21 brain MRI > referred to neurosurgery by PCP (appt scheduled 10/17; [facility]) Hypokalemia Abnormal urinalysis DVT prophylaxis Osteoarthritis Hypothyroidism Diabetes mellitus, type 2 IDDM Depression Hypertension Hyperlipidemia Asthma allergy induced Surgical History Status post total left knee replacement History of carpal tunnel release Right (07/2019) History of lumbar discectomy History of anesthesia reaction Slow to wake History of dilatation and curettage History of bilateral tubal ligation History of colonoscopy History of tooth extraction History of wisdom tooth extraction History of tonsillectomy and adenoidectomy History of bilateral cataract extraction Family History Father Family history of reaction to anesthesia little slow to wake up Family history of diabetes mellitus Family hx colonic polyps Social History Smoking Status: Never smoker Second Hand Exposure: No; Do You Dip or Chew Tobacco: No; Hx Alcohol Use: No Hx Substance Use: No Preferred Language: Sinhala 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 Physical Exam . Physical examination was a pleasant only female. Seemed a little bit tired and groggy this morning. She is lying in bed looks comfortable. Examination of the right leg reveals a large soft tissue envelope. She has slight valgus alignment to her knee. Minimal knee effusion. She can do straight leg raise. She is neurologically intact. Examination left knee reveals well-healed incision. She got anatomic alignment to the knee. No real tenderness. No knee effusion. She is neurologically intact. Results & Data Results & Data Laboratory Results . Diagnostic Findings . PG Care Time/CCT Total # of Minutes Spent Total Time Spent with Patient: Total time spent is greater than 50% in coordination of care (as documented) at patient's floor/unit and/or counseling patient: Coding Level of Care Code 77232 IN/OBS CONSULT LVL 3,45M Diagnoses Right knee DJD M17.11 Status post left knee replacement Z96.652
[2023-11-28] MEDS: amLODIPine BESYLATE 5 MG TAB PO SCH (10:45)
[2023-11-28] MEDS: LACTATED RINGER'S 1,000 ML IV ONE (10:46)
[2023-11-28 12:17] LABS: Anti Nuclear Antibody Screen NEGATIVE (NEGATIVE)
--- NOTE | 2023-11-28 17:27 | Hospitalist Progress Note ---
Date of Service November 28, 2023 Assessment & Plan (1) Altered mental status: (2) Insulin dependent type 2 diabetes mellitus: (3) Meningioma: (4) Hypothyroidism: (5) Dyslipidemia: (6) Depression: (7) HTN (hypertension): Plan: Blood pressure remains mildly elevated (8) CKD (chronic kidney disease) stage 3, GFR 30-59 ml/min: Plan MS. Gann is a 78-year-old female with significant past medical history of type 2 diabetes, history of multiple meningioma, VIRGIL, hypothyroidism, hypertension, depression with anxiety, and mild cognitive impairment admitted for evaluation of progressive confusion. Patient lives with daughter, however, patient alone in last few days as daughter is out of town. There are concerns about patient's ability to care for self, therefore she was brought to hospital. No sign of acute infectious process or focal neurologic deficits to attribute to current presentation at this time. Patient is awake, alert, and engaged in conversation, however, notably forgetful and seeks prompting for questions of "why" she is in the hospital. She endorses full independence in iADLS, but is unable to discuss how or what she does--when asked specifically about groceries and finances, she sates she "handles it all." Plan to call family and discuss in more detail about progression of current symptoms and presentation and goals for patient. Progressive dementia v acute encephalopathy Meningioma Mild cognitive impairment Prior MRI 11/20 with [id number] meningioma, [id number] meningioma and DVA -CT Head: 11/23 without acute intracranial process Had been living with her daughter without any significant problem. She has been alone lately because daughter has gone out of town. Noted to be confused occasionally and forgetful to take her medications or even going to wrong places at times No signs of acute infection or other process contributing to presentation Appreciate neurology input Normal vitamin B12 level Heavy metal screen, NIEVES--pending Reorient frequently Discussed with patient's son regarding Aricept--prefers to defer until cognitive testing as outpatient Will need follow-up with neurology outpatient Plan to discharge once placement available Hypothyroidism TSH low and free T4 is slightly elevated Will reduce levothyroxine dose from 100 to 75 mcg daily Will need repeat thyroid function test as outpatient Left knee degenerative joint disease Appreciate orthopedics input Needs follow-up with orthopedics on discharge Hypokalemia Replete electrolytes as needed DM II Hold metformin Given hypoglycemic episode today, will decrease glargine to 20 units at bedtime Monitor BGs HLD continue statin and asa HTN continue Metoprolol hold HCTZ Added amlodipine for better blood pressure control Monitor BP Depression continue Wellbutrin and citalopram ALLIE on CKD III stable Monitor renal function Hold diuretics Monitor renal function Gentle IV fluids DVT prophylaxis Heparin SQ CODE STATUS Full Code Disposition Case management to help with discharge planning Admission and Anticipated Discharge Date Admission Date: November 24, 2023 Subjective Patient is seen and examined at bedside Updated patient's son over the phone No new complaints Waiting for placement Denies any chest pain, dyspnea, nausea, vomiting, abdominal pain Review of Systems Review of Systems: All systems reviewed & are unremarkable except as noted in Subjective Physical Exam Physical Exam: Physical Exam: Vitals signs as noted above General Appearance:Obese, no apparent distress Head: normocephalic, Atraumatic Eyes: normal inspection, EOMI Neck: supple, Trachea midline Respiratory/Chest: Normal breath sounds, CTA, No accessory muscle use Cardiovascular: S1, S2, No murmur Abdomen/GI:Soft, Non tender, Bowel sounds present Extremities/Musculoskeletal:normal inspection, Trace edema Neurologic/Psych:AAOX3, grossly no focal neurological deficits Skin: normal color, warm Results & Data Results & Data Vital Signs (Past 12 Hours) Vital Signs Temp Pulse Pulse Resp BP Pulse Ox O2 Del Method 11/28/23 15:01 36.7 C 63 16 123/78 98 Room Air 11/28/23 09:10 61 11/28/23 07:20 36.4 C L 59 L 16 156/80 H 99 Room Air Laboratory Results [facility] 11/28/23 05:45 Sodium 140 Potassium 3.8 Chloride 105 Carbon Dioxide 28 BUN 43 H Creatinine 1.69 H Glucose 66 L Calcium 9.0
[2023-11-28] MEDS: CARBOHYDRATES FOR HYPOGLYCEMIA PO PRN (20:38)
[2023-11-28] MEDS ORDERED: LANTUS PER UNIT CHARGE SQ SCH (21:00)
[2023-11-29] MEDS: LANTUS PER UNIT CHARGE SQ SCH (09:08)
[2023-11-29 10:19] LABS: BUN Creatinine Ratio 24.1 (10-20); Calcium 9.3 mg/dl (8.6-10.3); Creatinine Clr Calc Pharmacy 33.5 ml/min; Est GFR (African American) 41.5 ml/min; Est GFR (Non-African American) 35.8 ml/min; Potassium 4.3 mmol/L (3.5-5.1)
--- NOTE | 2023-11-29 15:55 | Hospitalist Progress Note ---
Date of Service November 29, 2023 Assessment & Plan (1) Altered mental status: (2) Insulin dependent type 2 diabetes mellitus: (3) Meningioma: (4) Hypothyroidism: (5) Dyslipidemia: (6) Depression: (7) HTN (hypertension): Plan: Blood pressure remains mildly elevated (8) CKD (chronic kidney disease) stage 3, GFR 30-59 ml/min: Plan MS. Gann is a 78-year-old female with significant past medical history of type 2 diabetes, history of multiple meningioma, VIRGIL, hypothyroidism, hypertension, depression with anxiety, and mild cognitive impairment admitted for evaluation of progressive confusion. Patient lives with daughter, however, patient alone in last few days as daughter is out of town. There are concerns about patient's ability to care for self, therefore she was brought to hospital. No sign of acute infectious process or focal neurologic deficits to attribute to current presentation at this time. Patient is awake, alert, and engaged in conversation, however, notably forgetful and seeks prompting for questions of "why" she is in the hospital. She endorses full independence in iADLS, but is unable to discuss how or what she does--when asked specifically about groceries and finances, she sates she "handles it all." Plan to call family and discuss in more detail about progression of current symptoms and presentation and goals for patient. Progressive dementia Vs acute encephalopathy Meningioma Mild cognitive impairment Prior MRI 11/20 with [id number] meningioma, [id number] meningioma and DVA -CT Head: 11/23 without acute intracranial process Had been living with her daughter without any significant problem. She has been alone lately because daughter has gone out of town. Noted to be confused occasionally and forgetful to take her medications or even going to wrong places at times No signs of acute infection or other process contributing to presentation Appreciate neurology input Normal vitamin B12 level Heavy metal screen, NIEVES--pending Reorient frequently Discussed with patient's son regarding Aricept--prefers to defer until cognitive testing as outpatient Will need follow-up with neurology outpatient Waiting for placement Hypothyroidism TSH low and free T4 is slightly elevated Will reduce levothyroxine dose from 100 to 75 mcg daily Will need repeat thyroid function test as outpatient Left knee degenerative joint disease Appreciate orthopedics input Needs follow-up with orthopedics on discharge Hypokalemia Replete electrolytes as needed DM II Hold metformin Given hypoglycemic episodes, will decrease Lantus dose Monitor BGs HLD continue statin and asa HTN Continue Metoprolol Hold HCTZ due to ALLIE Added amlodipine Monitor BP BP variable likely due to mood Depression continue Wellbutrin and citalopram ALLIE on CKD III stable Monitor renal function Hold diuretics Monitor renal function received IV fluids Cr better DVT prophylaxis Heparin SQ CODE STATUS Full Code Disposition Case management to help with discharge planning Admission and Anticipated Discharge Date Admission Date: November 24, 2023 Subjective Patient is seen and examined at bedside Headache resolved Renal function better today No new complaints Waiting for placement Denies any chest pain, dyspnea, nausea, vomiting, abdominal pain Review of Systems Review of Systems: All systems reviewed & are unremarkable except as noted in Subjective Physical Exam Physical Exam: Physical Exam: Vitals signs as noted above General Appearance:Obese, no apparent distress Head: normocephalic, Atraumatic Eyes: normal inspection, EOMI Neck: supple, Trachea midline Respiratory/Chest: Normal breath sounds, CTA, No accessory muscle use Cardiovascular: S1, S2, No murmur Abdomen/GI:Soft, Non tender, Bowel sounds present Extremities/Musculoskeletal:normal inspection, Trace edema Neurologic/Psych:AAOX3, grossly no focal neurological deficits Skin: normal color, warm Results & Data Results & Data Vital Signs (Past 12 Hours) Vital Signs Temp Pulse Resp BP Pulse Ox O2 Del Method 11/29/23 15:21 36.5 C 62 16 151/74 H 97 Room Air 11/29/23 08:23 66 11/29/23 07:33 36.6 C 58 L 16 128/85 99 Room Air Laboratory Results [facility] 11/29/23 09:47 Sodium 139 Potassium 4.3 Chloride 102 Carbon Dioxide 31 BUN 34 H Creatinine 1.41 H Glucose 237 H Calcium 9.3
[2023-11-29 18:32] LABS: Arsenic Blood 3 mcg/L (<23); Lead Blood 1.6 mcg/dL (<3.5); Mercury, blood <4 mcg/L (<=10)
[2023-11-30 07:22] LABS: Calcium 8.8 mg/dl (8.6-10.3); Potassium 4.1 mmol/L (3.5-5.1)
[2023-11-30 07:28] LABS: BUN Creatinine Ratio 25.5 (10-20); Creatinine Clr Calc Pharmacy 34.5 ml/min; Est GFR (Non-African American) 37.1 ml/min
--- NOTE | 2023-11-30 15:22 | Hospitalist Progress Note ---
Date of Service November 30, 2023 Assessment & Plan (1) Altered mental status: (2) Insulin dependent type 2 diabetes mellitus: (3) Meningioma: (4) Hypothyroidism: (5) Dyslipidemia: (6) Depression: (7) HTN (hypertension): Plan: Blood pressure remains mildly elevated (8) CKD (chronic kidney disease) stage 3, GFR 30-59 ml/min: Plan MS. Gann is a 78-year-old female with significant past medical history of type 2 diabetes, history of multiple meningioma, VIRGIL, hypothyroidism, hypertension, depression with anxiety, and mild cognitive impairment admitted for evaluation of progressive confusion. Patient lives with daughter, however, patient alone in last few days as daughter is out of town. There are concerns about patient's ability to care for self, therefore she was brought to hospital. No sign of acute infectious process or focal neurologic deficits to attribute to current presentation at this time. Patient is awake, alert, and engaged in conversation, however, notably forgetful and seeks prompting for questions of "why" she is in the hospital. She endorses full independence in iADLS, but is unable to discuss how or what she does--when asked specifically about groceries and finances, she sates she "handles it all." Plan to call family and discuss in more detail about progression of current symptoms and presentation and goals for patient. Progressive dementia Vs acute encephalopathy Meningioma Mild cognitive impairment Prior MRI 11/20 with [id number] meningioma, [id number] meningioma and DVA -CT Head: 11/23 without acute intracranial process Had been living with her daughter without any significant problem. She has been alone lately because daughter has gone out of town. Noted to be confused occasionally and forgetful to take her medications or even going to wrong places at times No signs of acute infection or other process contributing to presentation Appreciate neurology input Normal vitamin B12 level Heavy metal screen-pending NIEVES screen negative Discussed with patient's son regarding Aricept--prefers to defer until cognitive testing as outpatient Will need follow-up with neurology outpatient Waiting for placement Reorient frequently to minimize delirium Hypothyroidism TSH low and free T4 is slightly elevated Will reduce levothyroxine dose from 100 to 75 mcg daily Will need repeat thyroid function test as outpatient Left knee degenerative joint disease Appreciate orthopedics input Needs follow-up with orthopedics on discharge Hypokalemia Replete electrolytes as needed DM II Hold metformin Given hypoglycemic episodes, will decrease Lantus dose Monitor BGs HLD continue statin and asa HTN Continue Metoprolol Hold HCTZ due to ALLIE Added amlodipine Monitor BP Blood pressure better today Depression continue Wellbutrin and citalopram ALLIE on CKD III stable Monitor renal function Hold diuretics Monitor renal function received IV fluids Cr 1.3 today DVT prophylaxis Heparin SQ CODE STATUS Full Code Disposition Case management to help with discharge planning Admission and Anticipated Discharge Date Admission Date: November 24, 2023 Subjective Patient is seen and examined at bedside States feeling better today No new complaints Blood pressure better controlled Waiting for placement Denies any chest pain, dyspnea, nausea, vomiting, abdominal pain Review of Systems Review of Systems: All systems reviewed & are unremarkable except as noted in Subjective Physical Exam Physical Exam: Physical Exam: Vitals signs as noted above General Appearance:Obese, no apparent distress Head: normocephalic, Atraumatic Eyes: normal inspection, EOMI Neck: supple, Trachea midline Respiratory/Chest: Normal breath sounds, CTA, No accessory muscle use Cardiovascular: S1, S2, No murmur Abdomen/GI:Soft, Non tender, Bowel sounds present Extremities/Musculoskeletal:normal inspection, Trace edema Neurologic/Psych:AAOX3, grossly no focal neurological deficits Skin: normal color, warm Results & Data Results & Data Vital Signs (Past 12 Hours) Vital Signs Temp Pulse Resp BP BP Pulse Ox O2 Del Method 11/30/23 14:34 36.7 C 57 L 18 108/63 98 Room Air 11/30/23 07:53 36.8 C 62 16 139/73 98 Room Air Laboratory Results [facility] 11/30/23 06:15 Sodium 141 Potassium 4.1 Chloride 105 Carbon Dioxide 29 BUN 35 H Creatinine 1.37 H Glucose 137 H Calcium 8.8
[2023-12-01 06:57] LABS: Calcium 9.4 mg/dl (8.6-10.3); Creatinine Clr Calc Pharmacy 29.6 ml/min; Est GFR (African American) 35.7 ml/min; Est GFR (Non-African American) 30.8 ml/min; Potassium 4.1 mmol/L (3.5-5.1)
--- NOTE | 2023-12-01 14:41 | Ultrasound Report ---
ULTRASOUND KIDNEYS AND BLADDER CLINICAL HISTORY: Acute renal insufficiency. COMPARISON STUDY: Abdominal CT dated 01/30/2015. TECHNIQUE: Real-time, grayscale, and color flow sonography of the kidneys and bladder is performed. I mages are reviewed in the transverse and longitudinal planes. FINDINGS: Kidneys: The kidneys demonstrate cortical atrophy. Echotexture is normal. The right kidney measures 9 .6 cm in length and the left kidney measures 10.7 cm in length. There is no hydronephrosis. No shado wing renal calculi are identified. There is no sonographic evidence of contour deforming renal mass l esion. No perinephric fluid is identified. Bladder: The bladder is decompressed and not well assessed. IMPRESSION: 1. The kidneys demonstrate cortical atrophy and are without hydronephrosis. 2. The bladder is decompressed and not well assessed. ACT 112: Negative or not required by law. Electronically signed by: Brayan Sosa M.D. 12/01/2023 2:40 PM
[2023-12-01] MEDS: LORazepam 0.5 MG TAB PO ONE (16:56)
--- NOTE | 2023-12-01 17:42 | Hospitalist Progress Note ---
Date of Service December 01, 2023 Assessment & Plan (1) Altered mental status: (2) Insulin dependent type 2 diabetes mellitus: (3) Meningioma: (4) Hypothyroidism: (5) Dyslipidemia: (6) Depression: (7) HTN (hypertension): Plan: Blood pressure remains mildly elevated (8) CKD (chronic kidney disease) stage 3, GFR 30-59 ml/min: Plan MS. Gann is a 78-year-old female with significant past medical history of type 2 diabetes, history of multiple meningioma, VIRGIL, hypothyroidism, hypertension, depression with anxiety, and mild cognitive impairment admitted for evaluation of progressive confusion. Patient lives with daughter, however, patient alone in last few days as daughter is out of town. There are concerns about patient's ability to care for self, therefore she was brought to hospital. No sign of acute infectious process or focal neurologic deficits to attribute to current presentation at this time. Patient is awake, alert, and engaged in conversation, however, notably forgetful and seeks prompting for questions of "why" she is in the hospital. She endorses full independence in iADLS, but is unable to discuss how or what she does--when asked specifically about groceries and finances, she sates she "handles it all." Plan to call family and discuss in more detail about progression of current symptoms and presentation and goals for patient. Progressive dementia Vs acute encephalopathy Meningioma Mild cognitive impairment Prior MRI 11/20 with [id number] meningioma, [id number] meningioma and DVA -CT Head: 11/23 without acute intracranial process Had been living with her daughter without any significant problem. She has been alone lately because daughter has gone out of town. Noted to be confused occasionally and forgetful to take her medications or even going to wrong places at times No signs of acute infection or other process contributing to presentation Appreciate neurology input Normal vitamin B12 level Heavy metal screen-normal NIEVES screen negative Discussed with patient's son regarding Aricept--prefers to defer until cognitive testing as outpatient Will need follow-up with neurology outpatient Reorient frequently to minimize delirium Case management to help with discharge planning Hypothyroidism TSH low and free T4 is slightly elevated Will reduce levothyroxine dose from 100 to 75 mcg daily Will need repeat thyroid function test as outpatient Left knee degenerative joint disease Appreciate orthopedics input Needs follow-up with orthopedics on discharge Hypokalemia Replete electrolytes as needed DM II Hold metformin Given hypoglycemic episodes, will decrease Lantus dose Monitor BGs HLD continue statin and asa HTN Continue Metoprolol Hold HCTZ due to ALLIE Added amlodipine Monitor BP Blood pressure better today Depression continue Wellbutrin and citalopram ALLIE on CKD III --Renal USD: The kidneys demonstrate cortical atrophy and are without hydronephrosis. The bladder is decompressed and not well assessed. Hold diuretics Monitor renal function received IV fluids Cr 1.6 today Will consider nephrology evaluation if continues to worsen Bladder scan as needed to monitor for any retention DVT prophylaxis Heparin SQ CODE STATUS Full Code Disposition Case management to help with discharge planning Admission and Anticipated Discharge Date Admission Date: November 24, 2023 Subjective Patient is seen and examined at bedside Reports chronic intermittent headache Noted rising creatinine today No new complaints otherwise Blood pressure stable today Denies any chest pain, dyspnea, nausea, vomiting, abdominal pain Review of Systems Review of Systems: All systems reviewed & are unremarkable except as noted in Subjective Physical Exam Physical Exam: Physical Exam: Vitals signs as noted above General Appearance:Obese, no apparent distress Head: normocephalic, Atraumatic Eyes: normal inspection, EOMI Neck: supple, Trachea midline Respiratory/Chest: Normal breath sounds, CTA, No accessory muscle use Cardiovascular: S1, S2, No murmur Abdomen/GI:Soft, Non tender, Bowel sounds present Extremities/Musculoskeletal:normal inspection, Trace edema Neurologic/Psych:AAOX3, grossly no focal neurological deficits Skin: normal color, warm Results & Data Results & Data Vital Signs (Past 12 Hours) Vital Signs Temp Pulse Pulse Resp BP BP Pulse Ox 12/01/23 15:05 36.7 C 60 16 128/76 99 12/01/23 12:45 36.5 C 64 18 146/66 H 97 12/01/23 07:37 36.9 C 64 18 124/62 98 12/01/23 07:30 12/01/23 07:29 36.9 C 64 16 124/62 98 O2 Del Method 12/01/23 15:05 Room Air 12/01/23 12:45 Room Air 12/01/23 07:37 Room Air 12/01/23 07:30 Room Air 12/01/23 07:29 Room Air Laboratory Results BMP 12/01/23 06:03 Sodium 140 Potassium 4.1 Chloride 104 Carbon Dioxide 32 BUN 40 H Creatinine 1.60 H Glucose 100 H Calcium 9.4
[2023-12-02 08:12] LABS: BUN Creatinine Ratio 25.2 (10-20); Calcium 9.5 mg/dl (8.6-10.3); Creatinine Clr Calc Pharmacy 31.3 ml/min; Est GFR (African American) 38.2 ml/min; Potassium 4.2 mmol/L (3.5-5.1)
--- NOTE | 2023-12-02 17:21 | Hospitalist Progress Note ---
Date of Service December 02, 2023 Assessment & Plan (1) Altered mental status: (2) Insulin dependent type 2 diabetes mellitus: (3) Meningioma: (4) Hypothyroidism: (5) Dyslipidemia: (6) Depression: (7) HTN (hypertension): Plan: Blood pressure remains mildly elevated (8) CKD (chronic kidney disease) stage 3, GFR 30-59 ml/min: Plan MS. Gann is a 78-year-old female with significant past medical history of type 2 diabetes, history of multiple meningioma, VIRGIL, hypothyroidism, hypertension, depression with anxiety, and mild cognitive impairment admitted for evaluation of progressive confusion. Patient lives with daughter, however, patient alone in last few days as daughter is out of town. There are concerns about patient's ability to care for self, therefore she was brought to hospital. No sign of acute infectious process or focal neurologic deficits to attribute to current presentation at this time. Patient is awake, alert, and engaged in conversation, however, notably forgetful and seeks prompting for questions of "why" she is in the hospital. She endorses full independence in iADLS, but is unable to discuss how or what she does--when asked specifically about groceries and finances, she sates she "handles it all." Plan to call family and discuss in more detail about progression of current symptoms and presentation and goals for patient. Progressive dementia Vs acute encephalopathy Meningioma Mild cognitive impairment Prior MRI 11/20 with [id number] meningioma, [id number] meningioma and DVA -CT Head: 11/23 without acute intracranial process Had been living with her daughter without any significant problem. She has been alone lately because daughter has gone out of town. Noted to be confused occasionally and forgetful to take her medications or even going to wrong places at times No signs of acute infection or other process contributing to presentation Appreciate neurology input Normal vitamin B12 level Heavy metal screen-normal NIEVES screen negative Discussed with patient's son regarding Aricept--prefers to defer until cognitive testing as outpatient Will need follow-up with neurology outpatient Reorient frequently to minimize delirium Case management to help with discharge planning Waiting for placement Hypothyroidism TSH low and free T4 is slightly elevated Will reduce levothyroxine dose from 100 to 75 mcg daily Will need repeat thyroid function test as outpatient Left knee degenerative joint disease Appreciate orthopedics input Needs follow-up with orthopedics on discharge Hypokalemia Replete electrolytes as needed DM II Hold metformin Given hypoglycemic episodes, will decrease Lantus dose Monitor BGs HLD continue statin and asa HTN Continue Metoprolol Hold HCTZ due to ALLIE Added amlodipine Monitor BP Continue current medications Depression continue Wellbutrin and citalopram ALLIE on CKD III --Renal USD: The kidneys demonstrate cortical atrophy and are without hydronephrosis. The bladder is decompressed and not well assessed. Hold diuretics Monitor renal function received IV fluids Cr 1.5 today Will consider nephrology evaluation if continues to worsen Bladder scan as needed to monitor for any retention DVT prophylaxis Heparin SQ CODE STATUS Full Code Disposition Case management to help with discharge planning Admission and Anticipated Discharge Date Admission Date: November 24, 2023 Subjective Patient is seen and examined at bedside States feeling well today No new complaints Waiting for placement Review of Systems Review of Systems: All systems reviewed & are unremarkable except as noted in Subjective Physical Exam Physical Exam: Physical Exam: Vitals signs as noted above General Appearance:Obese, no apparent distress Head: normocephalic, Atraumatic Eyes: normal inspection, EOMI Neck: supple, Trachea midline Respiratory/Chest: Normal breath sounds, CTA, No accessory muscle use Cardiovascular: S1, S2, No murmur Abdomen/GI:Soft, Non tender, Bowel sounds present Extremities/Musculoskeletal:normal inspection, Trace edema Neurologic/Psych:AAOX3, grossly no focal neurological deficits Skin: normal color, warm Results & Data Results & Data Vital Signs (Past 12 Hours) Vital Signs Temp Pulse Resp BP Pulse Ox O2 Del Method 12/02/23 14:00 36.7 C 60 16 138/81 100 Room Air 12/02/23 07:30 Room Air 12/02/23 07:21 36.4 C L 62 16 138/83 98 Room Air Laboratory Results [facility] 12/02/23 06:34 Sodium 141 Potassium 4.2 Chloride 104 Carbon Dioxide 29 BUN 38 H Creatinine 1.51 H Glucose 106 H Calcium 9.5
[2023-12-03 07:10] LABS: Calcium 9.2 mg/dl (8.6-10.3); Creatinine Clr Calc Pharmacy 28.1 ml/min; Est GFR (African American) 33.6 ml/min
[2023-12-03] MEDS: POLYETHYLENE (MIRALAX) 17 GM PACK PO SCH (14:28)
[2023-12-03] MEDS: MAGNESIUM HYDROXIDE SUSP 30 ML UDC PO ONE (14:31)
--- NOTE | 2023-12-03 16:24 | Hospitalist Progress Note ---
Date of Service December 03, 2023 Assessment & Plan (1) Altered mental status: (2) Insulin dependent type 2 diabetes mellitus: (3) Meningioma: (4) Hypothyroidism: (5) Dyslipidemia: (6) Depression: (7) HTN (hypertension): Plan: Blood pressure remains mildly elevated (8) CKD (chronic kidney disease) stage 3, GFR 30-59 ml/min: Plan MS. Gann is a 78-year-old female with significant past medical history of type 2 diabetes, history of multiple meningioma, VIRGIL, hypothyroidism, hypertension, depression with anxiety, and mild cognitive impairment admitted for evaluation of progressive confusion. Patient lives with daughter, however, patient alone in last few days as daughter is out of town. There are concerns about patient's ability to care for self, therefore she was brought to hospital. No sign of acute infectious process or focal neurologic deficits to attribute to current presentation at this time. Patient is awake, alert, and engaged in conversation, however, notably forgetful and seeks prompting for questions of "why" she is in the hospital. She endorses full independence in ADLS, but is unable to discuss how or what she does--when asked specifically about groceries and finances, she sates she "handles it all." Plan to call family and discuss in more detail about progression of current symptoms and presentation and goals for patient. Progressive dementia Vs acute encephalopathy Meningioma Mild cognitive impairment Prior MRI 11/20 with [id number] meningioma, [id number] meningioma and DVA -CT Head: 11/23 without acute intracranial process Had been living with her daughter without any significant problem. She has been alone lately because daughter has gone out of town. Noted to be confused occasionally and forgetful to take her medications or even going to wrong places at times No signs of acute infection or other process contributing to presentation Appreciate neurology input Normal vitamin B12 level Heavy metal screen-normal NIEVES screen negative Discussed with patient's son regarding Aricept--prefers to defer until cognitive testing as outpatient Will need follow-up with neurology outpatient Reorient frequently to minimize delirium Case management to help with discharge planning Waiting for placement Hypothyroidism TSH low and free T4 is slightly elevated Will reduce levothyroxine dose from 100 to 75 mcg daily Will need repeat thyroid function test as outpatient Left knee degenerative joint disease Appreciate orthopedics input Needs follow-up with orthopedics on discharge Hypokalemia Replete electrolytes as needed DM II Hold metformin Given hypoglycemic episodes, will decrease Lantus dose Monitor BGs HLD continue statin and asa HTN Continue Metoprolol Hold HCTZ due to ALLIE Added amlodipine Monitor BP Continue current medications Depression continue Wellbutrin and citalopram ALLIE on CKD III --Renal USD: The kidneys demonstrate cortical atrophy and are without hydronephrosis. The bladder is decompressed and not well assessed. Hold diuretics Monitor renal function received IV fluids avoid nephrotoxic agents DVT prophylaxis Heparin SQ CODE STATUS Full Code Disposition Awaiting rehab. Possible DC in next few days. Please note the above document was generated using voice recognition software. It may contain grammatical, syntax or spelling errors. Any formal questions or concerns about the content, text or information contained within the body of this dictation should be directly addressed to the provider for clarification Admission and Anticipated Discharge Date Admission Date: November 24, 2023 Subjective Patient seen and examined at bedside. She is comfortably sitting up on the chair at the side of the bed; not in distress. No significant events overnight Review of Systems Review of Systems: All systems reviewed & are unremarkable except as noted in Subjective Physical Exam Physical Exam: Physical Exam: Vitals signs as noted above General Appearance:Obese, no apparent distress Head: normocephalic, Atraumatic Eyes: normal inspection, EOMI Neck: supple, Trachea midline Respiratory/Chest: Normal breath sounds, CTA, No accessory muscle use Cardiovascular: S1, S2, No murmur Abdomen/GI:Soft, Non tender, Bowel sounds present Extremities/Musculoskeletal:normal inspection, Trace edema Neurologic/Psych:AAOX3, grossly no focal neurological deficits Skin: normal color, warm Results & Data Results & Data Vital Signs (Past 12 Hours) Vital Signs Temp Pulse Resp BP Pulse Ox O2 Del Method 12/03/23 14:29 36.5 C 57 L 16 134/82 99 Room Air 12/03/23 07:31 36.4 C L 59 L 16 151/76 H 97 Room Air
[2023-12-03] MEDS: DOCUSATE SODIUM 100 MG CAP PO SCH (20:22)
--- NOTE | 2023-12-04 16:04 | Hospitalist Progress Note ---
Date of Service December 04, 2023 Assessment & Plan (1) Altered mental status: (2) Insulin dependent type 2 diabetes mellitus: (3) Meningioma: (4) Hypothyroidism: (5) Dyslipidemia: (6) Depression: (7) HTN (hypertension): Plan: Blood pressure remains mildly elevated (8) CKD (chronic kidney disease) stage 3, GFR 30-59 ml/min: Plan MS. Gann is a 78-year-old female with significant past medical history of type 2 diabetes, history of multiple meningioma, VIRGIL, hypothyroidism, hypertension, depression with anxiety, and mild cognitive impairment admitted for evaluation of progressive confusion. Patient lives with daughter, however, patient alone in last few days as daughter is out of town. There are concerns about patient's ability to care for self, therefore she was brought to hospital. No sign of acute infectious process or focal neurologic deficits to attribute to current presentation at this time. Patient is awake, alert, and engaged in conversation, however, notably forgetful and seeks prompting for questions of "why" she is in the hospital. She endorses full independence in ADLS, but is unable to discuss how or what she does--when asked specifically about groceries and finances, she sates she "handles it all." Plan to call family and discuss in more detail about progression of current symptoms and presentation and goals for patient. Progressive dementia Vs acute encephalopathy Meningioma Mild cognitive impairment Prior MRI 11/20 with [id number] meningioma, [id number] meningioma and DVA -CT Head: 11/23 without acute intracranial process Had been living with her daughter without any significant problem. She has been alone lately because daughter has gone out of town. Noted to be confused occasionally and forgetful to take her medications or even going to wrong places at times No signs of acute infection or other process contributing to presentation Appreciate neurology input Normal vitamin B12 level Heavy metal screen-normal NIEVES screen negative Discussed with patient's son regarding Aricept--prefers to defer until cognitive testing as outpatient Will need follow-up with neurology outpatient Reorient frequently to minimize delirium Case management to help with discharge planning Waiting for placement Hypothyroidism TSH low and free T4 is slightly elevated Will reduce levothyroxine dose from 100 to 75 mcg daily Will need repeat thyroid function test as outpatient Left knee degenerative joint disease Appreciate orthopedics input Needs follow-up with orthopedics on discharge Hypokalemia Replete electrolytes as needed DM II Hold metformin Given hypoglycemic episodes, will decrease Lantus dose Monitor BGs HLD continue statin and asa HTN Continue Metoprolol Hold HCTZ due to ALLIE Added amlodipine Monitor BP Continue current medications Depression continue Wellbutrin and citalopram ALLIE on CKD III --Renal USD: The kidneys demonstrate cortical atrophy and are without hydronephrosis. The bladder is decompressed and not well assessed. Hold diuretics Monitor renal function received IV fluids avoid nephrotoxic agents DVT prophylaxis Heparin SQ CODE STATUS Full Code Disposition Awaiting rehab. Possible DC in next few days. Please note the above document was generated using voice recognition software. It may contain grammatical, syntax or spelling errors. Any formal questions or concerns about the content, text or information contained within the body of this dictation should be directly addressed to the provider for clarification Admission and Anticipated Discharge Date Admission Date: November 24, 2023 Subjective Patient seen and examined at bedside. She is comfortable; not in distress. No significant events; vital signs are stable Review of Systems Review of Systems: All systems reviewed & are unremarkable except as noted in Subjective Physical Exam Physical Exam: Physical Exam: Vitals signs as noted above General Appearance:Obese, no apparent distress Head: normocephalic, Atraumatic Eyes: normal inspection, EOMI Neck: supple, Trachea midline Respiratory/Chest: Normal breath sounds, CTA, No accessory muscle use Cardiovascular: S1, S2, No murmur Abdomen/GI:Soft, Non tender, Bowel sounds present Extremities/Musculoskeletal:normal inspection, Trace edema Neurologic/Psych:AAOX3, grossly no focal neurological deficits Skin: normal color, warm Results & Data Results & Data Vital Signs (Past 12 Hours) Vital Signs Temp Pulse Resp BP Pulse Ox O2 Del Method 12/04/23 14:51 36.7 C 65 16 122/77 98 Room Air 12/04/23 07:12 36.5 C 56 L 16 124/77 96 Room Air
== END 2023-12-05 12:00 | DRG 57 ==
LOC: ED 12:30 → SUATTDRO 16:01 → 3N 16:01